=== PATIENT | female | born 1955 | race Caucasian/White ===

== ENCOUNTER → 2018-05-15 09:19 | Outpatient (CLI) | payer OTHER, SELFPAY | PROVIDERS: Family Provider Internal Medicine; PCP Internal Medicine; Visit Provider Internal Medicine | DX: Z12.31 Encounter for screening mammogram for malignant neoplasm of breast (principal); Z78.0 Asymptomatic menopausal state | CPT/HCPCS: 77063; 77067; 77080 ==

== ENCOUNTER → 2019-05-29 07:06 | Outpatient (CLI) | payer OTHER, SELFPAY ==
--- NOTE | 2019-05-29 07:13 | BI_ITS ---
MAMMOGRAPHY - BILATERAL SCREENING REASON FOR EXAM: Female, 63 years old. Routine annual screening examination. PERTINENT HISTORY: Non-contributory. History of bilateral stereotactic breast biopsies and left breast aspiration. TECHNIQUE: Digital bilateral breast pushpa (3D mammographic acquisition) in the CC and MLO projections. 2-D mediolateral oblique (MLO) and craniocaudad (CC) views of both breasts were obtained. CAD: Full Field Digital Mammography with Computer Added Detection was performed. COMPARISON: Comparison is made with prior study dated May 15, 2018 and March 06, 2017. FINDINGS: Breast Composition: The breasts are heterogeneously dense, which may obscure small masses. There are no dominant masses or suspicious calcifications. Interstitial markers once again seen in the upper slightly lateral portion of the left breast as well as in the deep slightly superior medial portion of the right breast. Stable benign appearing bilateral axillary lymph nodes. No other significant abnormalities are identified. There has been no significant change since the prior study. BI/SCREEN MAMM (CAD) W/PUSHPA BILAT IMPRESSION: Stable bilateral screening mammogram. Yearly follow-up mammogram recommended. (A) ASSESSMENT CATEGORY: BIRADS Category 2: Benign. A letter regarding these results will be sent to the patient by the facility within 30 days. Approximately 10% of breast cancers are not detected by mammography. A normal mammogram should not delay biopsy of a clinically suspicious abnormality. [id number] Electronically Signed: Pedro Luis Thacker, at 8:52 EDT , Service support ,
== END ==
PROVIDERS: Family Provider Internal Medicine; PCP Internal Medicine; Referring Provider Internal Medicine; Visit Provider Internal Medicine
DX: Z12.31 Encounter for screening mammogram for malignant neoplasm of breast (principal)
CPT/HCPCS: 77063; 77067

== ENCOUNTER → 2020-09-07 07:41 | Outpatient (CLI) | payer MEDICARE, OTHER, SELFPAY ==
[2020-09-07 08:09] VITALS: BP 125/50; PULSE 76; RESP 16; TEMP 35.8; O2SAT 100; BMI 22.4
[2020-09-07 08:41] VITALS: BP 122/44; PULSE 72; RESP 16; TEMP 36.2; O2SAT 98
[2020-09-07 09:40] VITALS: BP 106/51; PULSE 75; RESP 16; TEMP 35.9; O2SAT 98
[2020-09-07 10:20] VITALS: BP 114/38; PULSE 72; RESP 16; TEMP 36.3
[2020-09-07 10:56] VITALS: BP 122/44; PULSE 78; RESP 16; TEMP 36.4; O2SAT 98
[2020-09-07 12:02] VITALS: BP 127/53; PULSE 79; RESP 16; TEMP 36.6; O2SAT 97
== END ==
PROVIDERS: PCP Internal Medicine; Referring Provider Ophthalmology; Visit Provider Ophthalmology
DX: D68.2 Hereditary deficiency of other clotting factors (principal)
CPT/HCPCS: 36430; 86900; 86901; 86965; J7040; P9012; A4216

== ENCOUNTER → 2021-04-26 13:16 | Outpatient (CLI) | payer MEDICARE, OTHER, SELFPAY ==
[2020-09-07 08:09] VITALS: BMI 22.4
--- NOTE | 2021-04-26 13:18 | BI_ITS ---
MAMMOGRAPHY - BILATERAL SCREENING REASON FOR EXAM: Female, 65 years old. Routine annual screening examination. PERTINENT HISTORY: Screening TECHNIQUE: Digital bilateral breast pushpa (3D mammographic acquisition) in the CC and MLO projections. 2-D mediolateral oblique (MLO) and craniocaudad (CC) views of both breasts were obtained. CAD: Full Field Digital Mammography with Computer Added Detection was performed. COMPARISON: Previous mammogram obtained on 06/13/2019 FINDINGS: Breast Composition: Dense There are no dominant masses or suspicious calcifications. This patient has some dense internal breast structure in the superior medial aspect of the posterior right breast and the 2 o''clock position which have been previously biopsied and has actually decreased in size and radiodensity compared with the previous study obtained on 05/29/2019 and probably represents residual focal atelectasis change. BI/SCRN MAMM (CAD)W/PUSHPA BILAT IMPRESSION: Stable bilateral screening mammogram. Yearly follow-up mammogram recommended. (A) ASSESSMENT CATEGORY: BIRADS Category 1: Negative. A letter regarding these results will be sent to the patient by the facility within 30 days. Approximately 10% of breast cancers are not detected by mammography. A normal mammogram should not delay biopsy of a clinically suspicious abnormality. [id number] Electronically Signed: Sheng Fall DO at 15:04 EDT Tel , Service support ,
--- NOTE | 2021-04-26 13:24 | BD_ITS ---
STUDY: DUAL ENERGY X-RAY ABSORPTIOMETRY / DXA REASON FOR EXAM: Female, 65 years old. Z780. Patient is postmenopausal. TECHNIQUE: Bone Mineral Density (BMD) measurements of lumbar spine and bilateral hips were obtained. COMPARISON: Comparison is made with prior study dated 05/15/2018. FINDINGS: Lumbar Spine (L1-L4): g/cm2 (0.777) / T-score (-2.5) / Z-score (-0.6) Findings are suggestive of osteopenia with a high fracture risk. Left Femur Total: g/cm2 (0.777) / T-score (-1.4) / Z-score (-0.1) Left Femoral Neck: g/cm2 (0.657) / T-score (-1.7) / Z-score (-0.2) Right Femur Total: g/cm2 (0.752) / T-score (-1.6) / Z-score (-0.3) Right Femoral Neck: g/cm2 (0.654) / T-score (-1.8) / Z-score (-0.2) The T-Scores on the most recent prior examination were: Lumbar Spine (L1-L4): There has been worsening of bone density since the previous examination. Left Femur Total: which represents a worsening of 6.5%. Right Femur Total: which represents a worsening of 1.9%. BD/Dexa Bone Density Study IMPRESSION: The patient is considered osteopenic as outlined below according to World Robert Organization (WHO) criteria with a high fracture risk. There has been worsening of bone density since the previous examination. Reference Information: The T-score is the number of standard deviations above or below the standard which is normal for young adults at their peak bone mineral density. The World Health Organization (WHO) interprets the T-scores as follows: Above -1 Normal bone density Between -1 and -2.5 Osteopenia Equal to / or below -2.5 Osteoporosis As a practical clinical guideline, osteopenia may be graded as follows: Mild -1 through -1.5 Moderate -1.6 through -2.0 Severe -2.1 through -2.4 The Z-score is the number of standard deviations above or below age-matched controls. A Z-score of less than -1.5 would be considered abnormal. References: 1. NIH Osteoporosis and Related Bone Diseases www osteo.org 2. International Society for Clinical Densitometry www iscd.org 3. National Osteoporosis Foundation www nof.org Electronically Signed: Pedro Luis Thacker MD at 10:09 EDT , Service support ,
--- NOTE | 2021-04-26 13:58 | CT_ITS ---
STUDY: LOW DOSE CT LUNG CANCER SCREENING REASON FOR EXAM: Female, 65 years old. CURRENT SMOKER RADIATION DOSAGE (If Supplied By Facility): CTDIvol = ( 1.55 ) mGy, DLP = ( 50.56 ) mGycm TECHNIQUE: No contrast was administered. Low dose technique was utilized (average mAS-38 and kVp 120). 1.25 mm axial source images with a slice interval of 1.25-mm were reconstructed in lung windows. 2.5 mm axial source images with a slice interval of 2.5-mm were reconstructed in lung windows. 5.0 mm axial source images with a slice interval of 5.0-mm were reconstructed in soft tissue windows. Nodule measured using lung windows on PACS and/or independent workstation with automated measurement of minimum and maximum diameter. Nodule measurement reported as average diameter rounded to the nearest whole number. Growth is defined as an increase ins size of greater than 1.5 mm. COMPARISON: Previous chest from 12/07/2012 NODULES: Nodule #: None Total lung nodules (excluding granulomas): 0 Emphysema: None Endobronchial lesion: The Aorta: Normal Coronary arteries: Heart: Normal Mediastinal nodes: Normal Other chest and abdominal findings: The pectus excavatum deformity is identified. CT/Low Dose CT Lung Screening IMPRESSION: Pectus excavatum deformity is identified, otherwise the pulmonary parenchyma is normal IMPORTANT NOTES FOR USE: ACR Lung-RADS Version 1.1 Assessment Categories Release Date: 2018 Category: Coded 0-4 bases on nodule(s) with highest degree of suspicion. Negative screen is defined as categories 1 and 2; a positive screen is defined as categories 3 and 4. Category 3 and 4A nodules that are unchanged on interval CT should be coded as category 2, and individuals returned to screening in 12 months. Category 4X: Category 3 or 4 nodules with additional imaging findings that increase the suspicion of lung cancer, such as spiculation, GGN that doubles in size in 1 year, enlarged lymph notes, etc. Category Modifiers: S (significant finding unrelated to lung cancer) Electronically Signed: Sheng Fall DO at 13:08 EDT Tel , Service support ,
== END ==
PROVIDERS: PCP Internal Medicine; Referring Provider Internal Medicine; Visit Provider Internal Medicine
DX: Z12.31 Encounter for screening mammogram for malignant neoplasm of breast (principal); Z78.0 Asymptomatic menopausal state; Z87.891 Personal history of nicotine dependence
CPT/HCPCS: 71271; 77063; 77067; 77080

== ENCOUNTER → 2022-05-17 | Outpatient (CLI) | payer MEDICARE, OTHER, SELFPAY ==
--- NOTE | 2022-05-17 07:56 | MRI_ITS ---
STUDY: MRI LUMBAR SPINE WITHOUT CONTRAST REASON FOR EXAM: Female, 66 years old. Back pain and right leg pain. TECHNIQUE: Standardized fat and water weighted pulse sequences were obtained in the sagittal and axial planes. COMPARISON: Lumbar spine radiographs 04/28/2022. FINDINGS: T10-T11: (Sagittal only). Normal endplates. Mild disc space height narrowing. No ventral extradural defect. Normal central canal and bilateral intervertebral neural foramina. T11-T12 and T12-L1: (Sagittal only). Normal endplates. Normal disc height, hydration and morphology. No ventral extradural defects. Normal central canal and bilateral intervertebral neural foramina. Normal lumbar lordosis. There is no substantial scoliosis. Normal conus medullaris that terminates at the lower T12 vertebral body level. L1-2: Normal endplates. Normal disc height, hydration and morphology. Normal bilateral facet joints. Normal central canal and bilateral lateral recesses. Normal bilateral intervertebral neural foramina. L2-3: Normal endplates. Normal disc height, hydration and morphology. Normal bilateral facet joints. Normal central canal and bilateral lateral recesses. Normal bilateral intervertebral neural foramina. L3-4: Normal endplates. Normal disc height, hydration and morphology. Normal bilateral facet joints. Normal central canal and bilateral lateral recesses. Normal bilateral intervertebral neural foramina. L4-5: Normal endplates. Mild disc space height narrowing. Minimal ventral extradural defect due to small posterior bulging annulus. Normal facet joint. Mild central canal stenosis with an AP canal diameter of 8 mm. Normal bilateral lateral recesses. Normal bilateral intervertebral neural foramina. L5-S1: Normal endplates. Normal disc height. Mild degenerative anterolisthesis of L5 on S1. Moderately pronounced bilateral degenerative facet arthropathy. Degenerative cysts in the right S1 superior articular facet. Degenerative cyst overlying the anterior surface of the left S1 superior articular facet. Pronounced central canal stenosis with a transverse canal diameter of 4.7 mm. Normal bilateral lateral recesses. Mild stenosis of the left intervertebral neural foramen. Normal right intervertebral neural foramen. Normal visualized sacral ala. Normal visualized paraspinous soft tissue structures. MRI/Spine Lumbar (Routine) IMPRESSION: 1. No MRI evidence of lumbar extruded disc fragment. 2. Mild degenerative anterolisthesis of L5 on S1, moderately pronounced bilateral L5-S1 degenerative facet arthropathy, pronounced central canal stenosis with a transverse canal diameter of 4.7 mm and mild stenosis of the left intervertebral neural foramen. Electronically Signed: David Saldaña MD at 9:09 EDT ,
== END | disposition home or self-care (01) ==
PROVIDERS: PCP Internal Medicine; Referring Provider Orthopaedic Surgery; Visit Provider Orthopaedic Surgery
DX: M51.26 Other intervertebral disc displacement, lumbar region (principal)
CPT/HCPCS: 72148

== ENCOUNTER → 2022-07-28 | Outpatient (CLI) | payer MEDICARE, OTHER, SELFPAY ==
--- NOTE | 2022-07-28 07:42 | BI_ITS ---
MAMMOGRAPHY - BILATERAL SCREENING REASON FOR EXAM: Female, 67 years old. Routine annual screening examination. PERTINENT HISTORY: Non-contributory. Remote bilateral stereotactic breast biopsies. TECHNIQUE: Digital bilateral breast pushpa (3D mammographic acquisition) in the CC and MLO projections. 2-D mediolateral oblique (MLO) and craniocaudad (CC) views of both breasts were obtained. CAD: Full Field Digital Mammography with Computer Added Detection was performed. COMPARISON: Comparison is made with prior study dated 04/26/2021 and 05/29/2019. FINDINGS: Breast Composition: The breasts are heterogeneously dense, which may obscure small masses. There are no dominant masses or suspicious calcifications. A tissue clip marker is once again seen in the deep slightly upper medial aspect of the right breast. A tissue marker is also seen in the deep upper central portion of the left breast. Stable bilateral fat-containing axillary lymph nodes. No other significant abnormalities are identified. There has been no significant change since the prior study. BI/SCRN MAMM (CAD)W/PUSHPA BILAT IMPRESSION: Stable bilateral screening mammogram. Yearly follow-up mammogram recommended. (A) ASSESSMENT CATEGORY: BIRADS Category 2: Benign. A letter regarding these results will be sent to the patient by the facility within 30 days. Approximately 10% of breast cancers are not detected by mammography. A normal mammogram should not delay biopsy of a clinically suspicious abnormality. [id number] Electronically Signed: Pedro Luis Thacker MD at 9:00 EDT ,
--- NOTE | 2022-07-28 07:59 | CT_ITS ---
STUDY: LOW DOSE CT LUNG CANCER SCREENING REASON FOR EXAM: Female, 67 years old. Former smoker. 35 pack-year history. RADIATION DOSAGE (If Supplied By Facility): CTDIvol = ( 2.01 ) mGy, DLP = ( 65.70 ) mGycm TECHNIQUE: No contrast was administered. Low dose technique was utilized (average mAS-38 and kVp 120). 1.25 mm axial source images with a slice interval of 1.25-mm were reconstructed in lung windows. 2.5 mm axial source images with a slice interval of 2.5-mm were reconstructed in lung windows. 5.0 mm axial source images with a slice interval of 5.0-mm were reconstructed in soft tissue windows. COMPARISON: April 26, 2021. NODULES: Total lung nodules (excluding granulomas): 0 Emphysema: None Endobronchial lesion: No Aorta: Mild atherosclerotic changes without aneurysm. CORONARY ARTERIES: Minimal coronary artery calcification Heart: Normal Pulmonary artery: Normal Mediastinal nodes: None Other chest and abdominal findings: Mild degenerative changes of the thoracic spine. Minimal pectus excavatum deformity of the chest wall. CT/Low Dose CT Lung Screening IMPRESSION: Lung-RADS category 1 - Continue annual screening with LDCT in 12 months. IMPORTANT NOTES FOR USE: ACR Lung-RADS Version 1.1 Assessment Categories Release Date: 2018 Category: Coded 0-4 bases on nodule(s) with highest degree of suspicion. Negative screen is defined as categories 1 and 2; a positive screen is defined as categories 3 and 4. Category 3 and 4A nodules that are unchanged on interval CT should be coded as category 2, and individuals returned to screening in 12 months. Category 4X: Category 3 or 4 nodules with additional imaging findings that increase the suspicion of lung cancer, such as spiculation, GGN that doubles in size in 1 year, enlarged lymph notes, etc. Category Modifiers: S (significant finding unrelated to lung cancer) Electronically Signed: Abraham Mckenzie DO at 17:42 EDT Reading Location ID and State: [address] [place] [address] Tel [phone], Service support ,
== END | disposition home or self-care (01) ==
LOC: OPBI 07:41
PROVIDERS: PCP Internal Medicine; Referring Provider Internal Medicine; Visit Provider Internal Medicine
DX: Z12.31 Encounter for screening mammogram for malignant neoplasm of breast (principal); Z12.2 Encounter for screening for malignant neoplasm of respiratory organs; Z87.891 Personal history of nicotine dependence
CPT/HCPCS: 71271; 77063; 77067

== ENCOUNTER → 2022-08-14 | Outpatient (CLI) | payer MEDICARE, OTHER, SELFPAY ==
--- NOTE | 2022-08-14 14:31 | CT_ITS ---
INDICATION: Left lower quadrant abdominal pain. Pelvic pain. Postmenopausal female. Diverticulosis. EXAMINATION: CT ABDOMEN AND PELVIS WITH CONTRAST - CT Abdomen And Pelvis W/ Contrast Injection TECHNIQUE: Helically acquired images were obtained of the abdomen and pelvis following IV contrast. A radiation dose optimization technique was used for this scan. IV Contrast dosage and agent: 100 mL of Isovue-300 . Oral contrast: November COMPARISON: None. FINDINGS: LOWER CHEST: Lung bases are clear. No cardiomegaly or pericardial effusion. LIVER: Multiple subcentimeters cysts throughout and otherwise normal liver. No evidence of enhancing focal mass. GALLBLADDER AND BILIARY TREE: No calcified gallstones. No gallbladder distension or wall edema. No intra- or extrahepatic biliary ductal dilation. PANCREAS: No focal cystic or solid mass. SPLEEN: Normal size without focal cystic or solid mass. ADRENAL GLANDS: No nodules. KIDNEYS AND URETERS: Small cyst in the upper pole. Otherwise normal right kidney. Normal left kidney. Normal visualized ureters. PERITONEUM: No ascites or free air. No other fluid collection. BOWEL: Normal stomach. Normal small bowel. There is sigmoid diverticulosis without acute inflammatory change. The colon is otherwise grossly normal. Normal appendix. LYMPH NODES: No enlarged mesenteric or retroperitoneal lymph nodes. VESSELS: Atherosclerotic changes of the abdominal aorta and iliac arteries without dissection or aneurysm. Normal IVC. URINARY BLADDER: Unremarkable. REPRODUCTIVE ORGANS: There is a partially calcified fibroid off the left 5-7 otherwise normal uterus. There is evidence of tubal ligation. No adnexal mass. ABDOMINAL WALL: No discrete abdominal or pelvic wall hernia. BONES: Minimal anterolisthesis of L5 on S1 without pars defects. The lumbar spine is otherwise grossly normal. No lytic or blastic lesions CT/Abdomen/Pelvis WITH Contrast IMPRESSION: 1. Diverticulosis without acute inflammatory change. 2. Uterine fibroid. 3. Nonspecific subcentimeter hepatic cysts. 4. Right renal cyst. 5. No other evidence of renal, ureteral or urinary bladder abnormality. Electronically Signed: Abraham Mckenzie DO at 17:37 EST Reading Location ID and State: [facility] / [place] Tel [phone], Service support ,
[2022-08-14 15:11] LABS: Absolute Lymphocyte Count 2.18 X10^3/uL (0.83-4.51); Absolute Neutrophil Count 4.5 X10^3/uL (2.0-7.7); Basophil# 0.05 X10^3/uL; Basophil% 0.7 % (0-1); Eosinophil# 0.04 X10^3/uL; Eosinophils% 0.5 % (0-5); Erythrocyte Sedimentation Rate 10 mm/hr (0-30); Hematocrit 41.1 % (37-47); Hemoglobin 13.6 g/dL (12.0-15.0); Lymphocyte # 2.18 X10^3/ul (0.83-4.51); Lymphocyte % 29.4 % (19-41); Mean Corp Hgb Conc 33.1 g/dL (32-36); Mean Corpuscular Hgb 32.5 pg (27.0-32.0); Mean Corpuscular Volume 98.1 fL (81-99); Mean Platelet Vol. 9.7 fl (6.2-12.0); Monocyte# 0.62 X10^3/uL; Monocyte% 8.4 % (0-10); NRBC Flagged by Analyzer 0 % (0-5); Neutrophil % 60.7 % (47-70); Platelet Count 323 K/mm3 (150-450); RBC Distribution Width CV 11.9 % (11.6-14.6); RBC Distribution Width SD 43.5 fl (35.1-43.9); Red Blood Count 4.19 M/mm3 (4.2-5.4); White Blood Count 7.4 K/mm3 (4.4-11.0)
[2022-08-14 15:35] LABS: ALB/GLOB Ratio 1.3 RATIO (0.9-2.4); AST(SGOT) 28 U/L (15-37); Alanine Aminotransfer ALT/SGPT 29 U/L (13-56); Albumin, Serum 4.4 g/dL (3.2-5.0); Alkaline Phosphatase 55 U/L (45-117); Anion Gap 4 (5-15); BUN 14 mg/dL (7-18); BUN/Creat Ratio 23.9 RATIO (10-20); CRP < 2.90 mg/L (0.0-3.0); Calcium,Total 9.4 mg/dL (8.5-10.1); Chloride 105 mmol/L (98-107); Creatinine, Serum 0.59 mg/dL (0.55-1.02); EST Glomerular Filtration Rate 109 mL/min (>60); Est Glom Filt Rate - Afr Amer 132 mL/min (>60); Globulin 3.4 g/dL (2.2-4.2); Glucose 94 mg/dL (74-106); Potassium 4.4 mmol/L (3.5-5.1); Protein, Total 7.8 g/dL (6.4-8.2); Sodium Level 140 mmol/L (136-145)
== END | disposition home or self-care (01) ==
PROVIDERS: PCP Internal Medicine; Visit Provider Internal Medicine
DX: R10.2 Pelvic and perineal pain (principal); R10.32 Left lower quadrant pain; Z78.0 Asymptomatic menopausal state
CPT/HCPCS: 36415; 74177; 80053; 85025; 85652; 86140; Q9967; A4216

== ENCOUNTER 2023-05-02 10:00 | Outpatient (RCR) | payer MEDICARE, OTHER, SELFPAY ==
--- NOTE | 2023-04-02 14:18 | HP.PTEVAL_ITS ---
Patient's Visit Information Visit Information Visit Information: ISRAEL BAILEY is a 67 year old F referred to Physical Therapy by Dr. Melo Huntley MD with a diagnosis of Back pain. Date of Evaluation: 04/02/23 Physical Therapist: VENANCIO Harrell Visit Plan Frequency: 2x /Week Duration: 4 Weeks Plan: 2X/ week for 4 weeks for R piriformis stretching, neutral spine core stability with HEP HEP: seated knee to opposite shoulder piriformis stretch Subjective Subjective: She saw Dr Zaragoza and referred to Dr Huntley...facet issues L5-S1 and DDD. She has been getting injections and abalation. She has pain on the R side LB and pain all the way down the leg. It is pretty much always down the leg. The abalation improved it but if she sits, stands too long or walks too far she has pain. She only take IBprof. She does not take the oxycodone that was given to her and she does not like it. She has had PT before on her neck but not for her LB. She does not feel that she has leg weakness. She can sleep ok and uses a heating pad and ice and take IBprof PM before bed. She has N&T. She only got a couple of days out of the injections. Pain LBP: Pain Intensity (Out of 10): 3 Pain Intensity Range: 8 R leg pain: Pain Intensity (Out of 10): 4 Pain Intensity Range: 8 Objective Objective: Gait: Normal gait pattern Trunk AROM: flexion 75%, ext 50%, SB B 75%, Rot B 75% Pt is able to walk on heels and toes LE MMT: R hip flex 15.6 and L 15.3 R knee ext 21.4 and L 23.6 R knee flex 14.9 and L 13.8 R hip abd 12.2 and L hip abd 13.9 Patellar DTR's SLUMP test +R for right buttock pain and -L SLR - B Piriformis length... tighter on the R with some increase pain with stretching and nothing on the L. Balance/Special Test Scores Oswestry Low Back Score: 15 Goals Goal 1:: I HEP Goal Time Frame: 4-6 Weeks Goal 2:: Decrease back and leg pain by 50% Goal Time Frame: 4-6 Weeks Goal 3:: No pain with stretching the R piriformis Goal Time Frame: 4-6 Weeks Rehabilitation Potential Rehabilitation Potential: Good Anticipated Interventions Patient/Client Instruction: Educate patient on: Condition and Plan of Care For the Purpose of:: To decrease pain, To increase ROM, To improve nutrient delivery to tissue, To improve muscle performance and motor function, To improve ability to perform ADL's, To increase tolerance to activity/condition/position, To improve performance and independence with ADL's, To decrease level of supervision to perform tasks, To improve ability of physical actions for home/community/work/leisure, To improve health of tissue and To increase flexibility/ROM Therapeutic Exercise to Include: Strength training, Postural training, Flexibilty training, Neuromotor development, Active ROM and Dynamic Lumbar Stabilization For the Purpose of:: To decrease pain, To increase ROM, To improve nutrient delivery to tissue, To improve muscle performance and motor function, To improve ability to perform ADL's, To increase tolerance to activity/condition/position, To decrease level of supervision to perform tasks, To improve ability of physical actions for home/community/work/leisure, To improve health of tissue, To decrease soft tissue restriction and To increase flexibility/ROM Text: Thank you for the opportunity to evaluate your patient. For Medicare and Medicare HMO plans, please review the plan of care and approve it. It will need to be FAXED BACK to us at [phone] for Medicare purposes. For Medicare only, by signing this I certify the plan of care. Please let me know if there are questions or concerns regarding this plan of care. Physician Signature: Date:
--- NOTE | 2023-05-02 10:28 | HP.PTDCSUM ---
Discharge Summary D/C summary: It has been my pleasure to treat ISRAEL BAILEY referred by Dr. Melo Huntley MD, with the diagnosis of Back pain for a total of 8 visit(s). Discharge Date: 05/02/23 Please see the following information for a summary of their discharge status. Subjective Subjective: Pt reports that if standing a lot by the end of the day she can tell she is done. The stretches do help but it does come back. The pain is not constant anymore. Mornings and afternoons are ok but by evening she feels it. Pain LBP: Pain Intensity (Out of 10): 0 R leg pain: Pain Intensity (Out of 10): 0 Overall Improvement % Improvement: 80 Objective Objective/Function: Instructed pt in supine with green strap IT band stretch 30 sec X 3 and given as HEP Supine manual Piriformis stretch on the R 30 sec X 3.... great muscle length Bug X 10... pt was not keeping her back flat on the table so instead of 90/90 bug we went ahead and did bent knees to the table. Goals Goal 1:: I HEP Goal Progress: Goal Met Goal 2:: Decrease back and leg pain by 50% Goal Progress: Goal Met Goal 3:: No pain with stretching the R piriformis Goal Progress: Goal Met Plan Plan: DC PT to HEP D/C Information Discharge Comments: DC PT to HEP d/c sentence: If there are questions or concerns regarding this patient's physical therapy, please feel free to call me at [phone]. Thank you for the referral of this patient. Sincerely, Lita Gardner, MPT Balance/Gait/Functional tests Balance/Special Test Scores Oswestry Low Back Score: 4
== END 2023-05-02 19:00 | disposition home or self-care (01) ==
LOC: PT 10:00
PROVIDERS: PCP Internal Medicine; Referring Provider Anesthesiology Pain Medicine; Visit Provider Anesthesiology Pain Medicine
DX: M54.9 Dorsalgia, unspecified (principal)
CPT/HCPCS: 97110; 97161

== ENCOUNTER → 2023-07-30 | Outpatient (CLI) | payer MEDICARE, OTHER, SELFPAY ==
--- NOTE | 2023-07-30 07:56 | CT_ITS ---
HISTORY: former smoker. CURRENT NON-SMOKER X 2.5 YRS, SMOKER X 30 YRS .5 PPD. TECHNIQUE: Helically acquired images were obtained of the chest without contrast. A radiation dose optimization technique was used for this scan. 509 images. COMPARISON: 07/28/2022, 04/26/2021. FINDINGS: LARGE AIRWAYS: Patent. LUNGS: Chronic mild biapical scarring with small blebs. Chronic linear left lower lobe scarring. No new suspicious nodule or acute alveolar consolidation. PLEURA: No pneumothorax or significant pleural effusion. HEART/PERICARDIUM: Heart within normal limits in size with coronary artery calcification. No pericardial effusion. VESSELS: Thoracic aorta nondilated. Mild atherosclerosis. MEDIASTINUM/JOSE: No pathologically enlarged adenopathy. UPPER ABDOMEN: Stable small cyst in the hepatic dome. BONES: Degenerative change and mild pectus excavatum. CT/Low Dose CT Lung Screening IMPRESSION: No significant interval change. Lung-RADS category 1: Continue annual screening with low dose CT. Electronically Signed: Maritza Wong MD at 9:01 EST ,
== END | disposition home or self-care (01) ==
LOC: CT 07:56
PROVIDERS: PCP Internal Medicine; Visit Provider Internal Medicine
DX: Z87.891 Personal history of nicotine dependence (principal)
CPT/HCPCS: 71271

== ENCOUNTER → 2023-08-09 | Outpatient (CLI) | payer MEDICARE, OTHER, SELFPAY ==
--- NOTE | 2023-08-09 12:56 | BI_ITS ---
MAMMOGRAPHY - BILATERAL SCREENING REASON FOR EXAM: Female, 68 years old. Routine annual screening examination. PERTINENT HISTORY: History of prior bilateral stereotactic breast biopsies. TECHNIQUE: Digital bilateral breast pushpa (3D mammographic acquisition) in the CC and MLO projections. 2-D mediolateral oblique (MLO) and craniocaudad (CC) views of both breasts were obtained. CAD: Full Field Digital Mammography with Computer Added Detection was performed. COMPARISON: Comparison is made with prior examination dated July 28, 2022 and April 26, 2021. FINDINGS: Breast Composition: The breasts are heterogeneously dense, which may obscure small masses. There are no dominant masses or suspicious calcifications. A tissue clip marker is once again seen in the deep slightly upper medial aspect of the right breast. A tissue clip marker is also seen in the deep upper central portion of the left breast. Stable bilateral fat-containing axillary lymph nodes. No other significant abnormalities are identified. There has been no significant change since the prior study. BI/SCRN MAMM (CAD)W/PUSHPA BILAT IMPRESSION: Stable bilateral screening mammogram. Yearly follow-up mammogram recommended. (A) ASSESSMENT CATEGORY: BIRADS Category 2: Benign. A letter regarding these results will be sent to the patient by the facility within 30 days. Approximately 10% of breast cancers are not detected by mammography. A normal mammogram should not delay biopsy of a clinically suspicious abnormality. [id number] Electronically Signed: Pedro Luis Thacker MD at 14:12 EST ,
--- NOTE | 2023-08-09 12:59 | BD_ITS ---
STUDY: DUAL ENERGY X-RAY ABSORPTIOMETRY / DXA REASON FOR EXAM: Female, 68 years old. M810 TECHNIQUE: Bone Mineral Density (BMD) measurements of lumbar spine and bilateral hips were obtained. COMPARISON: Comparison is made with prior examination April 26, 2021. FINDINGS: Lumbar Spine (L1-L4): g/cm2 (0.750) / T-score (-2.8) / Z-score (-0.8) Findings are suggestive of osteoporosis with a high fracture risk. Left Femur Total: g/cm2 (0.787) / T-score (-1.3) / Z-score (0.1) Left Femoral Neck: g/cm2 (0.627) / T-score (-2.0) / Z-score (-0.3) Right Femur Total: g/cm2 (0.752) / T-score (-1.6) / Z-score (-0.2) Right Femoral Neck: g/cm2 (0.609) / T-score (-2.2) / Z-score (-0.5) The T-Scores on the most recent prior examination were: Lumbar Spine (L1-L4): There has been worsening of bone density since the previous examination. Left Femur Total: which represents an improvement of 1.3%. Right Femur Total: which represents no significant change. . BD/Dexa Bone Density Study IMPRESSION: The patient is considered osteoporotic as outlined below according to World Robert Organization (WHO) criteria with a high fracture risk. There has been worsening of bone density since the previous examination. Reference Information: The T-score is the number of standard deviations above or below the standard which is normal for young adults at their peak bone mineral density. The World Health Organization (WHO) interprets the T-scores as follows: Above -1 Normal bone density Between -1 and -2.5 Osteopenia Equal to / or below -2.5 Osteoporosis As a practical clinical guideline, osteopenia may be graded as follows: Mild -1 through -1.5 Moderate -1.6 through -2.0 Severe -2.1 through -2.4 The Z-score is the number of standard deviations above or below age-matched controls. A Z-score of less than -1.5 would be considered abnormal. References: 1. NIH Osteoporosis and Related Bone Diseases www osteo.org 2. International Society for Clinical Densitometry www iscd.org 3. National Osteoporosis Foundation www nof.org Electronically Signed: Pedro Luis Thacker MD at 15:22 EST ,
== END | disposition home or self-care (01) ==
LOC: OPBD 12:55
PROVIDERS: PCP Internal Medicine; Referring Provider Internal Medicine; Visit Provider Internal Medicine
DX: Z12.31 Encounter for screening mammogram for malignant neoplasm of breast (principal); M81.0 Age-related osteoporosis without current pathological fracture; M85.80 Other specified disorders of bone density and structure, unspecified site
CPT/HCPCS: 77063; 77067; 77080

== ENCOUNTER 2024-01-29 09:00 | Outpatient (RCR) | payer MEDICARE, OTHER, SELFPAY ==
--- NOTE | 2023-12-24 13:00 | HP.PTEVAL ---
Patient's Visit Information Visit Information Visit Information: ISRAEL BAILEY is a 68 year old F referred to Physical Therapy by ASHVIN LAWSON with a diagnosis of CERVICAL RADICULOPATHY RIGHT. Date of Evaluation: 12/24/23 Physical Therapist: Higinio Fontana, PT, Cert MDT, OCS Visit Plan Frequency: 2x /Week Duration: 6WEEKS Plan: PRECAUTIONS: OSTEOPOROSIS PT INTERVENTIONS CERVICAL ROM/POSTURAL EX'S ,US /CP/MHP , MANUAL THERAPY (MANUAL TRACTION) Subjective Subjective: This 68 y/o female presents to physical therapy with cervical radiculopathy right side. Patient has cervical pain since [address] recommended PT. DR recommended surgery but patient declined symptoms worsen . Patient want to try PT too see of it will help before needing surgery. Patient had x-rays showed DDD/spurs and stenosis. Patient was not given no medication.Aggravating factors reading ,driving ,turning neck ,and lifting. Alleviating factors ice/heat rest. No H/O trauma . Patient pain affects sleeping. c/o dizziness but none today ,based on turning quickly.Denies tinnitus/nausea. Patient has paresthesia/tingling right arms and chest pain. Patient has received PT in past. Patient pain affects QOL and function. Patient goals to see if PT helps before surgery. SOCIAL: VOCATION: retired Pain Bilateral Neck: Pain Intensity (Out of 10): 6 Pain Intensity Range: 10 Comment: right Objective Objective: POSTURE: mild/mod thoracic kyphosis ,rounded shoulders head forward PALAPTION: tender UT/levator /occiput right> left NEURO: denies paresthesia/tingling , reflexes C5-6-7 1/3 AROM: BUE WFL MMT: BUE 4/5 except shoulders CERVICAL ROM: flexion WFL ,extension WFL ,lateral flexion/rotation min loss Special Tests C/S Radiculapathy - Left Upper limb tension test: Negative C/S Radiculapathy - Right Upper limb tension test: Negative C/S Radiculapathy - Left Spurlings: Negative C/S Radiculapathy - Right Spurlings: Positive C/S Radiculapathy - Left Cervical distraction: Negative C/S Radiculapathy - Right Cervical distraction: Negative C/S Radiculapathy - Left Relief test: Negative C/S Radiculapathy - Right Relief test: Negative C/S Radiculapathy - Valsalva: Negative Balance/Special Test Scores Oswestry Neck Score: 27 Goals Goal 1:: I with HEP for cervical spine Goal Time Frame: 4-6 Weeks Goal 2:: Patient demonstrates 50% improvement with less pain and and improved function Goal Time Frame: 4-6 Weeks Goal 3:: Patient to improve cervical ROM for function of recovery for ADLS and driving Goal Time Frame: 4-6 Weeks Goal 4:: Patient to improve neck oswestry score by 5 points to improve QOL and function Goal Time Frame: 4-6 Weeks Rehabilitation Potential Physical Therapy Diagnosis: This patient has cervical radiculopathy right with possible lateral stenosis with pain with positioning ,motion testing affects ADLS and housework task thus benefit from skilled PT Rehabilitation Potential: Good Anticipated Interventions Patient/Client Instruction: Educate patient on: Condition and Plan of Care For the Purpose of:: To decrease pain, To increase ROM, To improve muscle performance and motor function, To improve ability to perform ADL's, To increase tolerance to activity/condition/position, To improve ability of physical actions for home/community/work/leisure, To improve health of tissue, To decrease soft tissue restriction, To increase flexibility/ROM and To improve tolerance to ADL's Therapeutic Exercise to Include: Strength training, Postural training and Flexibilty training For the Purpose of:: To decrease pain, To increase ROM, To improve ability of physical actions for home/community/work/leisure, To improve health of tissue, To decrease soft tissue restriction and To increase flexibility/ROM Manual Therapy Techniques to Include: Soft tissue mobilization Comment: MANUAL TRACTION For the Purpose of:: To decrease pain, To increase ROM, To improve nutrient delivery to tissue, To increase oxygenation perfusion, To improve health of tissue and To decrease soft tissue restriction Text: Thank you for the opportunity to evaluate your patient. For Medicare and Medicare HMO plans, please review the plan of care and approve it. It will need to be FAXED BACK to us at [phone] for Medicare purposes. For Medicare only, by signing this I certify the plan of care. Please let me know if there are questions or concerns regarding this plan of care. Physician Signature: Date:
--- NOTE | 2024-01-29 09:30 | HP.PTDCSUM ---
Discharge Summary D/C summary: It has been my pleasure to treat ISRAEL BAILEY referred by ASHVIN LAWSON, with the diagnosis of CERVICAL RADICULOPATHY RIGHT for a total of 10 visit(s). Discharge Date: 01/29/24 Please see the following information for a summary of their discharge status. 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 Pain Bilateral Neck: Pain Intensity (Out of 10): 2 Overall Improvement % Improvement: 50 Objective Objective/Function: POSTURE: mild thoracic kyphosis ,rounded shoulders head forward PALAPTION: tender UT/levator /occiput right> left NEURO: denies paresthesia/tingling AROM: BUE WFL MMT: BUE 4/5 except shoulders CERVICAL ROM: flexion WFL ,extension WFL ,lateral flexion/rotation min loss Goals Goal 1:: I with HEP for cervical spine Goal Progress: Goal Met Goal 2:: Patient demonstrates 50% improvement with less pain and and improved function Goal Progress: Goal Met Goal 3:: Patient to improve cervical ROM for function of recovery for ADLS and driving Goal Progress: Goal Met Goal 4:: Patient to improve neck oswestry score by 5 points to improve QOL and function Goal Progress: Goal Met Plan Plan: D/C TO HEP D/C Information Discharge Comments: HEP d/c sentence: If there are questions or concerns regarding this patient's physical therapy, please feel free to call me at [phone]. Thank you for the referral of this patient. Sincerely, Higinio Fontana, PT, Cert MDT, OCS Balance/Gait/Functional tests Balance/Special Test Scores Oswestry Neck Score: 5 Improvement % Improvement: 50
== END 2024-01-29 09:37 | disposition home or self-care (01) ==
LOC: PT 09:00
PROVIDERS: PCP Internal Medicine
DX: M54.12 Radiculopathy, cervical region (principal)
CPT/HCPCS: 97110; 97140; 97162; 97530

== ENCOUNTER 2024-02-12 10:10 | Outpatient (CLI) | payer MEDICARE, OTHER, SELFPAY ==
[2024-02-12 10:36] VITALS: BP 133/46; PULSE 68; RESP 16; TEMP 36.4; O2SAT 99; BMI 24.2
[2024-02-12] MEDS: DENOSUMAB 60 MG/ML SC (10:41)
== END 2024-02-12 23:59 | disposition home or self-care (01) ==
LOC: MEDOUTP 10:10
PROVIDERS: PCP Internal Medicine; Referring Provider Internal Medicine; Visit Provider Internal Medicine
DX: M81.0 Age-related osteoporosis without current pathological fracture (principal)
CPT/HCPCS: 96372; J0897

== ENCOUNTER → 2024-05-19 | Outpatient (CLI) | payer MEDICARE, OTHER, SELFPAY ==
--- NOTE | 2024-05-19 06:44 | MRI_ITS ---
EXAM: MR LUMBAR SPINE WITHOUT INTRAVENOUS CONTRAST CLINICAL INDICATION: LUMBAR RADICULOPATHY TECHNIQUE: Multiplanar and multisequence MR images of the lumbar spine without intravenous contrast. COMPARISON: No relevant prior studies available. FINDINGS: VERTEBRAE: See below. SPINAL CORD: Normal. Normal position and signal intensity of the conus medullaris. SOFT TISSUES: Normal. DISCS/SPINAL CANAL/NEURAL FORAMINA: L1-L2: Normal. Normal disc height and morphology. Normal spinal canal and lateral recesses. Normal neuroforamina. L2-L3: Normal. Normal disc height and morphology. Normal spinal canal and lateral recesses. Normal neuroforamina. L3-L4: Normal. Normal disc height and morphology. Normal spinal canal and lateral recesses. Normal neuroforamina. L4-L5: Mild disc space narrowing. Broad-based disc protrusion noted. There appears to be a 5 mm extruded fragment extending inferiorly along the left posterior lateral region causing stenosis of the adjacent lateral recess. Minimal narrowing of the thecal sac secondary to the disc protrusion and ligamentous hypertrophy. No significant narrowing of the neuroforamina. L5-S1: There is mild anterior listhesis which appears related to facet joint narrowing. Mild narrowing of the thecal sac and moderate narrowing of the neural foramina related to ligamentous and facet hypertrophy, respectively. MRI/Spine Lumbar (Routine) IMPRESSION: No evidence of acute fracture or subluxation. Left L4-5 inferior disc extrusion narrowing the lateral recess. As above. Electronically Signed: Arnol Johnson MD at 15:48 EDT ,
== END | disposition home or self-care (01) ==
LOC: MRI 06:25
PROVIDERS: PCP Internal Medicine; Referring Provider Anesthesiology Pain Medicine; Visit Provider Anesthesiology Pain Medicine
DX: M54.16 Radiculopathy, lumbar region (principal)
CPT/HCPCS: 72148

== ENCOUNTER 2024-08-15 10:14 | Outpatient (CLI) | payer MEDICARE, OTHER, SELFPAY ==
[2024-08-15 10:36] VITALS: BP 115/48; PULSE 79; RESP 16; TEMP 35.6
[2024-08-15] MEDS: DENOSUMAB 60 MG/ML SC (10:38)
== END 2024-08-15 23:59 | disposition home or self-care (01) ==
PROVIDERS: PCP Internal Medicine; Referring Provider Internal Medicine; Visit Provider Internal Medicine
DX: M81.0 Age-related osteoporosis without current pathological fracture (principal)
CPT/HCPCS: 96372; J0897

== ENCOUNTER → 2024-08-17 | Outpatient (CLI) | payer MEDICARE, OTHER, SELFPAY | END | disposition home or self-care (01) | LOC: LAB 09:01 | PROVIDERS: PCP Internal Medicine; Visit Provider Ophthalmology | DX: Z00.00 Encounter for general adult medical examination without abnormal findings (principal) | CPT/HCPCS: 36415; 86900; 86901 ==

== ENCOUNTER 2024-08-18 07:39 | Outpatient (CLI) | payer MEDICARE, OTHER, SELFPAY ==
[2024-08-18 07:52] VITALS: BP 140/59; PULSE 71; RESP 16; TEMP 35.8; O2SAT 99; BMI 23.4
[2024-08-18 08:29] VITALS: BP 133/49; PULSE 75; RESP 16; TEMP 36.1; O2SAT 99
[2024-08-18 09:04] VITALS: BP 120/49; PULSE 72; RESP 16; TEMP 36
[2024-08-18 09:29] VITALS: BP 133/50; PULSE 71; RESP 16; TEMP 36; O2SAT 99
== END 2024-08-18 23:59 | disposition home or self-care (01) ==
LOC: MEDOUTP 07:40
PROVIDERS: PCP Internal Medicine; Referring Provider Ophthalmology; Visit Provider Ophthalmology
DX: D68.2 Hereditary deficiency of other clotting factors (principal)
CPT/HCPCS: 36415; 36430; 86900; 86901; 86965; P9012; A4216

== ENCOUNTER → 2024-09-10 | Outpatient (CLI) | payer MEDICARE, OTHER, SELFPAY ==
--- NOTE | 2024-09-10 13:46 | BI_ITS ---
MAMMOGRAPHY - BILATERAL SCREENING REASON FOR EXAM: Female, 69 years old. Routine annual screening examination. PERTINENT HISTORY: Non-contributory. History of bilateral stereotactic breast biopsies. TECHNIQUE: Digital bilateral breast pushpa (3D mammographic acquisition) in the CC and MLO projections. 2-D mediolateral oblique (MLO) and craniocaudad (CC) views of both breasts were obtained. CAD: Full Field Digital Mammography with Computer Added Detection was performed. COMPARISON: Comparison is made with prior study dated August 09, 2023 and July 28, 2022. FINDINGS: Breast Composition: The breasts are heterogeneously dense, which may obscure small masses. There are no dominant masses or suspicious calcifications. A tissue clip marker is once again seen in the deep slightly upper medial aspect of the right breast. A tissue clip marker is also seen in the deep upper central portion of the left breast. Stable bilateral fat-containing axillary lymph nodes. No other significant abnormalities are identified. There has been no significant change since the prior study. BI/SCRN MAMM (CAD)W/PUSHPA BILAT IMPRESSION: Stable bilateral screening mammogram. Yearly follow-up mammogram recommended. (A) ASSESSMENT CATEGORY: BIRADS Category 2: Benign. A letter regarding these results will be sent to the patient by the facility within 30 days. Approximately 10% of breast cancers are not detected by mammography. A normal mammogram should not delay biopsy of a clinically suspicious abnormality. [id number] Electronically Signed: Pedro Luis Thacker MD at 14:44 EST ,
--- NOTE | 2024-09-10 14:04 | CT_ITS ---
STUDY: LOW DOSE CT LUNG CANCER SCREENING REASON FOR EXAM: Female, 69 years old. Former smoker, stopped smoking in distant past. Patient smokes half a pack per day for 40 years. RADIATION DOSAGE (If Supplied By Facility): CTDIvol = ( 2.01 ) mGy, DLP = ( 66.95 ) mGycm TECHNIQUE: No contrast was administered. Low dose technique was utilized (average mAS-38 and kVp 120). 1.25 mm axial source images with a slice interval of 1.25-mm were reconstructed in lung windows. 2.5 mm axial source images with a slice interval of 2.5-mm were reconstructed in lung windows. 5.0 mm axial source images with a slice interval of 5.0-mm were reconstructed in soft tissue windows. COMPARISON: Comparison is made with prior study July 30, 2023. NODULES: No suspicious nodules are seen. Emphysema: Stable scarring at both lung apices worse on the right lung apex. Stable minimal linear scarring at the left lung base. Endobronchial lesion: None Aorta: Atherosclerotic plaque formation of the aortic arch. CORONARY ARTERIES: Coronary artery calcification is seen. Heart: Unremarkable Pulmonary artery: Unremarkable Mediastinal nodes: Unremarkable Other chest and abdominal findings: CT/Low Dose CT Lung Screening IMPRESSION: Lung-RADS category 2 - Continue annual screening with LDCT in 12 months. IMPORTANT NOTES FOR USE: ACR Lung-RADS Version 1.1 Assessment Categories Release Date: 2018 Category: Coded 0-4 bases on nodule(s) with highest degree of suspicion. Negative screen is defined as categories 1 and 2; a positive screen is defined as categories 3 and 4. Category 3 and 4A nodules that are unchanged on interval CT should be coded as category 2, and individuals returned to screening in 12 months. Category 4X: Category 3 or 4 nodules with additional imaging findings that increase the suspicion of lung cancer, such as spiculation, GGN that doubles in size in 1 year, enlarged lymph notes, etc. Category Modifiers: S (significant finding unrelated to lung cancer) Electronically Signed: Pedro Luis Thacker MD at 12:55 EST ,
== END | disposition home or self-care (01) ==
PROVIDERS: PCP Internal Medicine; Referring Provider Internal Medicine; Visit Provider Internal Medicine
DX: Z12.31 Encounter for screening mammogram for malignant neoplasm of breast (principal); Z12.2 Encounter for screening for malignant neoplasm of respiratory organs; Z87.891 Personal history of nicotine dependence
CPT/HCPCS: 71271; 77063; 77067

== ENCOUNTER → 2024-11-13 | Outpatient (CLI) | payer MEDICARE, OTHER, SELFPAY ==
--- NOTE | 2024-11-13 07:54 | ECHOD_ITS ---
Reason For Study Reason For Study: AV DISORDERS Procedure This was a 2D Doppler, Color Flow transthoracic echocardiogram. Exam performed in department. Left Ventricle Normal size and thickness. Left ventricular systolic function is normal. The left ventricular ejection fraction is 65 %. No evidence for diastolic dysfunction. Right Ventricle Normal right ventricle. Atria The left and right atria are normal. Mitral Valve Trivial mitral valve insufficiency. Tricuspid Valve Trivial tricuspid valve insufficiency. Normal pulmonary artery pressure. Aortic Valve Trisinus/trileaflet aortic valve. Mild focal aortic valve calcification. Pulmonic Valve The pulmonic valve is not well visualized. Trivial pulmonic valve insufficiency. Great Vessels Normal sized aortic root. Pericardium/Pleural No pericardial effusion. MMode/2D Measurements & Calculations LVIDd: 4.8 cm IVSd: 0.91 cm LVOT diam: 2.0 cm LVIDs: 3.7 cm LVPWd: 0.87 cm LVOT area: 3.0 cm2 RVDd: 2.4 cm FS: 21.8 % Ao root diam: 2.6 cm LAV(MOD-bp): 25.2 ml LVAd ap4: 20.0 cm2 LAV(MOD-bp) Indexed: 16.6 ml/m2 LVLd ap4: 7.5 cm LAV(MOD-sp2): 21.1 ml EDV(MOD-sp4): 45.7 ml LAV(MOD-sp4): 24.8 ml EDV(sp4-el): 45.6 ml LVAs ap4: 9.8 cm2 LVLs ap4: 5.9 cm ESV(MOD-sp4): 15.2 ml ESV(sp4-el): 13.9 ml EF(MOD-sp4): 66.8 % EF(sp4-el): 69.6 % SV(MOD-sp4): 30.5 ml SV(sp4-el): 31.7 ml LA A4 area: 12.2 cm2 SI(MOD-sp4): 20.2 ml/m2 LA dimension(2D): 3.1 cm RA A4 area: 6.8 cm2 Time Measurements MV dec time: 0.18 sec Doppler Measurements & Calculations MV E max felice: 80.7 cm/sec Lat Peak E' Felice: 9.1 cm/sec Med Peak E' Felice: 7.9 cm/sec MV A max felice: 76.8 cm/sec E/E' lat: 8.8 E/E' med: 10.3 MV E/A: 1.1 MV V2 max: 92.3 cm/sec Ao V2 max: 115.2 cm/sec MV max P.4 mmHg MV dec slope: 454.2 cm/sec2 Ao max P.3 mmHg MV V2 mean: 66.1 cm/sec Ao V2 mean: 80.8 cm/sec MV mean P.9 mmHg Ao mean P.0 mmHg MV V2 VTI: 31.9 cm Ao V2 VTI: 28.8 cm AV (velocity ratio): 0.92 MVA(VTI): 2.5 cm2 CARLA(I,D): 2.8 cm2 CARLA(V,D): 2.9 cm2 LV V1 max: 109.1 cm/sec SV(LVOT): 80.6 ml PA V2 max: 86.0 cm/sec LV V1 max P.8 mmHg PA V2 mean: 62.1 cm/sec LV V1 mean P.8 mmHg LV V1 mean: 79.1 cm/sec LV V1 VTI: 26.5 cm PI end-d felice: 85.1 cm/sec TR max felice: 199.3 cm/sec TR max P.9 mmHg ECHO/Echo Complete Interpretation Summary The left ventricular ejection fraction is 65 %. No evidence for diastolic dysfunction. Mild focal aortic valve calcification. Ordering Physician: Iman Gilliam Referring Physician: Iman Gilliam Performed By: Milka Batres RCS
== END | disposition home or self-care (01) ==
LOC: CVS 07:53
PROVIDERS: PCP Internal Medicine; Referring Provider Internal Medicine; Visit Provider Internal Medicine
DX: I35.8 Other nonrheumatic aortic valve disorders (principal)
CPT/HCPCS: 93306

== ENCOUNTER 2025-02-12 09:13 | Outpatient (CLI) | payer MEDICARE, OTHER, SELFPAY ==
[2025-02-12 09:20] VITALS: BP 145/73; PULSE 74; RESP 16; TEMP 36; O2SAT 98; BMI 23.8
[2025-02-12] MEDS: DENOSUMAB 60 MG/ML SC (09:32)
== END 2025-02-12 23:59 | disposition home or self-care (01) ==
LOC: MEDOUTP 09:13
PROVIDERS: PCP Internal Medicine; Referring Provider Internal Medicine; Visit Provider Internal Medicine
DX: M81.0 Age-related osteoporosis without current pathological fracture (principal)
CPT/HCPCS: 96372; J0897

== ENCOUNTER 2025-08-05 14:05 | Emergency (ER) | payer MEDICARE, OTHER, SELFPAY ==
[2025-08-05 14:05] VITALS: BP 114/58; PULSE 99; RESP 18; TEMP 37.2; O2SAT 99
[2025-08-05 14:48] LABS: Hematocrit 36.6 % (37-47); Hemoglobin 12.8 g/dL (12.0-15.0); Immature Granulocytes Count 0.080 X10^3/uL (0.0-0.0); Mean Corp Hgb Conc 35.0 g/dL (32-36); Mean Corpuscular Volume 92.2 fL (81-99); Mean Platelet Vol. 9.1 fl (6.2-12.0); NRBC Flagged by Analyzer 0 % (0-5); Platelet Count 313 K/mm3 (150-450); RBC Distribution Width CV 12.2 % (11.6-14.6); RBC Distribution Width SD 41.4 fl (35.1-43.9); Red Blood Count 3.97 M/mm3 (4.2-5.4); White Blood Count 13.8 K/mm3 (4.4-11.0)
[2025-08-05 15:04] LABS: AST(SGOT) 24 U/L (<=31); Alanine Aminotransfer ALT/SGPT 14 U/L (<=34); Albumin, Serum 4.1 g/dL (3.4-4.8); Alkaline Phosphatase 61 U/L (35-104); Anion Gap 11 (5-15); BUN 13 mg/dL (4-19); BUN/Creat Ratio 22.2 RATIO (10-20); Calcium,Total 8.7 mg/dL (7.6-11.0); Carbon Dioxide 25.2 mmol/L (21.0-32.0); Chloride 99 mmol/L (98-108); Globulin 3.0 g/dL (2.2-4.2); Glucose 107 mg/dL (70-99); Potassium 3.5 mmol/L (3.3-5.1)
[2025-08-05 15:16] LABS: Lipase 390 U/L (13-75)
--- NOTE | 2025-08-05 15:33 | CT_ITS ---
PROCEDURE: CT ABDOMEN/PELVIS W IV CONT ONLY 08/05/2025 REASON FOR EXAM: LEFT-SIDED ABDOMINAL PAIN TECHNIQUE: Procedure Code: [id number] Modality: CT Procedure: ABDOMEN/PELVIS W IV CONT ONLY Coronal and Sagittal reconstruction series were provided. CONTRAST: Isovue 300 VOLUME: 75 mL One or more dose reduction techniques were used (e.g., Automated exposure control, adjustment of the mA and/or kV according to patient size, use of iterative reconstruction technique. RADIATION DOSE SUMMARY: DLP: 443.42 mGycm COMPARISON: 08/14/2022 FINDINGS: Lung bases: Clear. Liver: No significant abnormality. Several scattered small circumscribed hypodense lesions most likely reflecting hepatic cysts, no significant interval change. Gallbladder: Unremarkable. Spleen: Unremarkable. Pancreas: Unremarkable. Adrenals: Unremarkable. Kidneys: Unremarkable. No hydronephrosis. Bladder: Unremarkable. Reproductive Organs: Small degenerative calcified fibroid at the uterine fundus. Unremarkable adnexae, with bilateral tubal ligation clips noted. Bowel: No evidence of obstruction. Normal appendix. Moderate distal colonic diverticulosis, with acute diverticulitis/segmental colitis of the descending colon in the left upper abdomen. No drainable fluid collection/abscess or free air to suggest perforation. Lymph nodes: No suspicious lymph node enlargement. Vasculature: Normal caliber abdominal aorta. Mild-moderate atherosclerotic disease. Peritoneum / Retroperitoneum: No ascites or free air. Bones: Minimal multilevel degenerative changes of the spine, with mild degenerative grade 1 anterolisthesis of L5 on S1. CT/Abdomen/Pelvis W IV Cont ONLY IMPRESSION: Acute uncomplicated diverticulitis/segmental colitis of the descending colon. Reading Location: [id number]
--- NOTE | 2025-08-05 15:33 | ED.VIS.GI ---
HPI HPI - GI History of Present Illness Chief Complaint: Abd Pain Narrative Narrative: 70-year-old female past medical history of hypertension presents with left-sided flank pain and elevated temperature. She states her symptoms began on last , approximately 6 days ago, when she started having diarrhea. That resolved. [facility] yesterday and diagnosed with gastroenteritis. She states she developed a fever. They did a urinalysis yesterday which was negative for infection. She states that she was nauseated but not vomiting. She noticed elevated temperature, now her pain is more on the left flank area. No exacerbating or alleviating factors. She felt like her pain was getting slightly worse, and moved to her left flank and back. She denies any gross hematuria, no exacerbating or alleviating factors. 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 Home Medications Medication Instructions Recorded Last Taken Type L.acidoph,paracasei,B.animalis 10 1 ea PO DAILY 02/23/15 07/13/16 History billion cell capsule amlodipine 5 mg tablet 5 mg PO DAILY 02/23/15 07/13/16 History calcium 600 mg (as 1 ea PO TID 02/23/15 07/13/16 History carbonate)-vitamin D3 20 mcg (800 unit) tablet cholecalciferol (vitamin D3) 25 2,000 mg PO DAILY 07/13/16 07/13/16 History mcg (1,000 unit) tablet (Vitamin D3) multivitamin (Daily Multi-Vitamin 1 tab PO DAILY 02/12/24 Unknown History tablet) denosumab 60 mg/mL subcutaneous 60 mg subcut [id number] 11/06/24 Unknown History syringe (Prolia) omeprazole 20 mg capsule,delayed 20 mg PO QDAY 11/06/24 Unknown History release atorvastatin 20 mg tablet 20 mg PO QDAY 08/04/25 Unknown History citalopram 10 mg tablet 10 mg PO QDAY 08/04/25 Unknown History ondansetron HCl 4 mg tablet 4 mg PO Q8H PRN nausea and 08/04/25 Unknown Rx vomiting #7 tabs ciprofloxacin HCl 500 mg tablet 500 mg PO BID #20 TABLETS 08/05/25 Unknown Rx metronidazole 500 mg tablet 500 mg PO TID #30 tabs 08/05/25 Unknown Rx Allergy/AdvReac Type Severity Reaction Status Date / Time No Known Allergies Allergy Verified 08/05/25 14:06 Family History Father Cancer Other Hypertension Surgical History Hx of tonsillectomy History of cataract surgery Social History Smoking Status: Former smoker Tobacco: How many years used: 30 ROS ROS ED ROS Narrative Review of systems positive for elevated temperature, nausea but no vomiting. Diarrhea-resolved. Positive abdominal pain, radiating to left flank. No dysuria or hematuria, no exacerbating or alleviating factors. EXAM Physical Exam Narrative Exam Narrative: Afebrile. Vital signs noted. Nontoxic-appearing. Cardiovascular examination reveals regular rate and rhythm. Lungs are clear to auscultation bilaterally. The abdomen is soft and nontender without guarding or rebound. No CVA tenderness to percussion bilaterally. Positive bowel sounds. Neurological examination nonfocal, nonlateralizing. Const Vital Signs: 08/05/25 14:05 08/05/25 16:04 08/05/25 18:00 Temperature 99 F 98.9 F Temperature Source Oral Oral Pulse Rate 99 88 81 Respiratory Rate 18 14 16 Blood Pressure 114/58 L 124/42 H 121/45 H Blood Pressure Mean 76 69 70 Pulse Ox 99 92 92 Oxygen Delivery Method Room Air Room Air Room Air MDM MDM MDM Narrative Medical decision making narrative: Differential diagnosis includes but not limited to gastroenteritis versus diverticulitis versus pyelonephritis versus ureterolithiasis. Laboratory work obtained per protocol. I reviewed her laboratory work and she has an elevated white count of 13.8 with hemoglobin 12.8, hematocrit 36.6, platelet count normal at 313. CMP is remarkable for creatinine low at 0.57 with BUN of 13, sodium normal 136, potassium 3.5, LFTs are grossly unremarkable. Lipase is slightly elevated at 390. I do feel that CT imaging is indicated. I do feel that she requires IV contrast as her elevated lipase and her left flank/back pain may be more from a pancreatitis that is more retroperitoneal. She declines any parenteral analgesics currently. I reviewed the CT of the abdomen and pelvis with IV contrast. There is no stranding around the pancreas. There is left-sided descending colon diverticulitis. Upon repeat examination, she is still declining any IV parenteral analgesics. She is not febrile here. I discussed with her the possibility of observation for IV antibiotics but she feels well and would like to be discharged home and try outpatient treatment for her descending colon diverticulitis. She was told the risk of perforation and abscess development and acknowledges an understanding. She will follow-up with her primary care provider in the next 2 days. Return instructions to the emergency department were reviewed. She was given her first doses of Cipro and Flagyl as she states she is taking Cipro floxacillin previously. Disposition is discharged home in stable condition. History & Record Review Discussion w/independent historian: Patient Additional record(s) reviewed:: Prior ED visit (Last ED visit 2015) and Prior labs Lab Data Attestation: I reviewed the patient's lab results. Labs: Laboratory Results - last 24 hr 08/05/25 08/05/25 14:26 16:25 WBC 13.8 H RBC 3.97 L Hgb 12.8 Hct 36.6 L MCV 92.2 MCH 32.2 H MCHC 35.0 RDW Std Deviation 41.4 RDW Coeff of Naomie 12.2 Plt Count 313 MPV 9.1 Immature Gran % (Auto) 0.600 Neut % (Auto) 80.6 H Lymph % (Auto) 9.1 L [place] % (Auto) 8.6 Eos % (Auto) 0.7 Baso % (Auto) 0.4 Absolute Neuts (auto) 11.1 H Absolute Lymphs (auto) 1.25 Nucleated RBC % 0 Sodium 136 Potassium 3.5 Chloride 99 Carbon Dioxide 25.2 Anion Gap 11 BUN 13 Creatinine 0.57 L Est GFR (MDRD) Non-Af 98 BUN/Creatinine Ratio 22.2 H Glucose 107 H Calcium 8.7 Total Bilirubin 0.76 AST 24 ALT 14 Alkaline Phosphatase 61 Total Protein 7.0 Albumin 4.1 Globulin 3.0 Albumin/Globulin Ratio 1.4 Lipase 390 H Urine Color Yellow Urine Clarity Clear Urine pH 6.5 Ur Specific [place] 1.010 Urine Protein 30 H Urine Glucose (UA) Normal Urine Ketones 150 A* Urine Occult Blood 10 H Urine Nitrite Negative Urine Bilirubin Negative Urine Urobilinogen Normal Ur Leukocyte Esterase Negative Urine RBC 0-5 SEEN Urine WBC 0 SEEN Ur Squamous Epith Cells 0-5 SEEN Urine Bacteria 0 SEEN Urine Mucus 0 SEEN Radiography Diagnostic Testing: Clinical Impression(s) from Imaging Studies Abdomen/Pelvis CT 08/05/25 15:33 IMPRESSION: Acute uncomplicated diverticulitis/segmental colitis of the descending colon. Reading Location: [facility] Discharge Plan Triage Chief Complaint: Abd Pain ED Provider: David Shaikh Dx/Rx/DC Orders Clinical Impression: Diverticulitis, Elevated lipase, Left flank pain Instructions: ED Diverticulitis Prescriptions: New ciprofloxacin HCl 500 mg tablet 500 mg PO BID Qty: 20 0RF metronidazole 500 mg tablet 500 mg PO TID Qty: 30 0RF No Action Prolia 60 mg/mL syringe 60 mg subcut [id number] omeprazole 20 mg capsule,delayed release(DR/EC) 20 mg PO QDAY citalopram 10 mg tablet 10 mg PO QDAY atorvastatin 20 mg tablet 20 mg PO QDAY ondansetron HCl 4 mg tablet 4 mg PO Q8H PRN (Reason: nausea and vomiting) Qty: 7 0RF amlodipine 5 MG tablet 5 mg PO DAILY calcium carbonate-vitamin D3 1 EACH tablet 1 ea PO TID L.acidoph,paracasei,B.animalis 1 EACH capsule 1 ea PO DAILY cholecalciferol (vitamin D3) [Vitamin D3] 1,000 UNIT tablet 2,000 mg PO DAILY multivitamin [Daily Multi-Vitamin] Tablet 1 tab PO DAILY Primary Care Provider: Iman Gilliam Referrals: Iman Gilliam DO [Primary Care Provider, Internal Medicine] - 2 Days FriendMani DO [Med Staff - Active Staff, Gastroenterology] - 1-2 Days if not improving Activity Restrictions/Additional Instructions: Antibiotics as directed. Return to the emergency department with sustained high fever, increased pain, new or worsening symptoms. Follow-up with your primary care provider or gastroenterology in the next 2 days. Tylenol or ibuprofen as needed for pain. Print Language: Swiss Disposition Disposition: Home, Self Care D/C Safety Score for UGIB Assessment Tom-Blatchford Bleeding Score (GBS): Stratifies upper GI bleeding patients who are "low-risk" and candidates for outpatient management. Hemoglobin, BUN, Recent Vital Signs: Hgb 12.8 g/dL (12.0-15.0) 08/05/25 14:26 BUN 13 mg/dL (4-19) 08/05/25 14:26 Pulse Rate 81 Blood Pressure 121/45 Score Interpretation: Score of 0: A GBS of 0 is a “Low Risk” GI bleed, and is highly sensitive (99.6% in a 2007 retrospective study) for predicting which patients did not require any “medical intervention”: blood transfusion, endoscopy, or surgery. This was confirmed in a [address] [facility] study where patients with a score of 0 were actually discharged and had no GI bleeding mortality at 6 month followup Score above 0: A GBS greater than zero suggests a “High Risk” GI bleed that is likely to require “medical intervention”: transfusion, endoscopy, or surgery. A higher GBS also correlated with a higher likelihood of needing intervention Scores >/= 6 are associated with >50% risk of needing intervention D/C Safety Score for LGIB Assessment Assessment Tool: Readmission and adverse event risk in patients with acute lower GI bleeding. Hemoglobin and Recent Vital Signs: Hgb 12.8 g/dL (12.0-15.0) 08/05/25 14:26 Pulse Rate 81 08/05/25 18:00 Blood Pressure 121/45 08/05/25 18:00 Score Interpretation: Probability Percentage of safe discharge (absence of rebleeding, blood transfusion, therapeutic intervention, 28 day readmission, or ) Score of 8 or below: Consider discharge, with appropriate precautions. Score of 9 or above: Discharge NOT recommended. Consider admission with further workup and resuscitation as necessary.
[2025-08-05 16:04] VITALS: BP 124/42; PULSE 88; RESP 14; TEMP 37.2; O2SAT 92
[2025-08-05 16:29] LABS: Mucous, Urine 0 SEEN /hpf (<or=2+)
[2025-08-05 16:46] LABS: Color, Urine Yellow (Yellow); Glucose, Dipstick Normal (Normal); Leukocyte Esterase-Dipstick Negative /ul (Negative); Nitrite-Dipstick Negative (Negative); Occult Blood-Urine 10 /ul (Negative); Protein-Dipstick 30 mg/dl (Negative); Specific Gravity, Urine 1.010 (1.002-1.030); Urine Bilirubin Dipstick Negative (Negative)
[2025-08-05 16:57] LABS: Ketone-Dipstick 150 mg/dl (Negative)
[2025-08-05 16:58] LABS: Red Blood Cells-Urine 0-5 SEEN /hpf (0-5); Squamous Epithelial Cells - UA 0-5 SEEN /hpf (5-10)
[2025-08-05 18:00] VITALS: BP 121/45; PULSE 81; RESP 16; O2SAT 92
[2025-08-05 18:39] VITALS: BP 145/57; PULSE 76; RESP 14; TEMP 37.1; O2SAT 100
== END 2025-08-05 18:50 | disposition home or self-care (01) ==
PROVIDERS: Emergency Provider Emergency Medicine; PCP Internal Medicine; Visit Provider Emergency Medicine
DX: R10.A2 Flank pain, left side (principal); K57.32 Diverticulitis of large intestine without perforation or abscess without bleeding; Z87.891 Personal history of nicotine dependence; R74.8 Abnormal levels of other serum enzymes; I10 Essential (primary) hypertension
CPT/HCPCS: 74177; 80053; 81001; 83690; 85025; 99283; Q9967; A4216

== ENCOUNTER 2025-08-14 09:19 | Outpatient (CLI) | payer MEDICARE, OTHER, SELFPAY ==
[2025-08-14 09:35] VITALS: BP 132/55; PULSE 71; RESP 16; TEMP 37.2; O2SAT 99
[2025-08-14] MEDS: DENOSUMAB 60 MG/ML SC (09:39)
== END 2025-08-14 23:59 | disposition home or self-care (01) ==
PROVIDERS: PCP Internal Medicine; Referring Provider Internal Medicine; Visit Provider Internal Medicine
DX: M81.0 Age-related osteoporosis without current pathological fracture (principal)
CPT/HCPCS: 96372; J0897

== ENCOUNTER → 2025-09-22 | Outpatient (CLI) | payer MEDICARE, OTHER, SELFPAY ==
--- OUTSIDE RECORDS SUMMARY | 2025-09-22 07:28 | XMS RPT_ITS | CCD ---
Author Organization [facility] Care Team Providers Care Show Host Or Hostess Name Role Phone Iman Nazario Unavailable Trent Mcfadden Unavailable Romie Lora Unavailable Dex Valencia Unavailable Juan Bruner Unavailable Abhay Bowden Unavailable Luis Dupere Unavailable Vinicius Vidales Unavailable Unavailable Funmi Lezama Unavailable Unavailable Linda Hollins Unavailable Unavailable Unavailable Unavailable Lita Villanueva Unavailable Unavailable Funmi Lezama Unavailable Unavailable Melquiades Truong Unavailable Unavailable Michelle Dean Unavailable Unavailable Dex Valencia Unavailable Iman Nazario DO Unavailable Trent Mcfadden Unavailable Romie Lora Unavailable Dex Valencia MD Unavailable Dr. Juan Bruner Unavailable Abhay Bowden Unavailable Jose Dupreein Unavailable Vinicius Vidales Unavailable Unavailable Jonelle Vines LPN Unavailable Unavailable Funmi Lezama RN Unavailable Unavailable Melquiades Truong LPN Unavailable Unavailable Michelle Dean RN Unavailable Unavailable Linda Hollins Unavailable Unavailable Unavailable Unavailable Slaneli MOLINA Lita Unavailable Unavailable Billy EGAN, Rose Unavailable Unavailable Bonezzi MD, Maddy M Unavailable Unavailable Unavailable Iman Nazario DO Unavailable Shiv Zaragoza Unavailable Lesa Trent Unavailable Romie Lora Unavailable Erik KOHLI, eDx Marie Unavailable Dr. Juan Bruner Unavailable Abhay Bowden Unavailable Luis Dupree Unavailable Vinicius Vidales Unavailable Unavailable Cross STUDENT WORKER, Jonelle Unavailable Unavailable Slarb STUDENT WORKER, Lita Unavailable Unavailable Filipe SEWING MACHINE ASSEMBLER, Linda Unavailable [phone] Gravius RUBBER PRINTING MACHINE OPERATOR, Johana Unavailable Unavailable Manchak RUBBER PRINTING MACHINE OPERATOR, Rose Unavailable Unavailable Teja RN, Funmi Unavailable Unavailable Jermaine RN, Michelle Medina Unavailable Unavailable Unavailable Unavailable Dr. Iman Nazario Primary Care Provider [phone] Dr. Matthew Johnston Attending Provider [phone] Iman Nazario Referring Provider [phone] Dr. Shiv Zaragoza Attending Provider [phone] Alexi MOLINA, Melquiades Unavailable Unavailable Dr. Iman Nazario Primary Care Provider [phone] Dr. Matthew Johnston Attending Provider [phone] Iman Nazario Referring Provider [phone] Dr. Shiv Zaragoza Attending Provider [phone] Iman Nazario DO Unavailable [phone] Long RUBBER PRINTING MACHINE OPERATOR, Kayela Unavailable Unavailable Iman Nazario DO Attending Unavailable Iman Nazario DO Referring Unavailable Iman Nazario DO Consulting Unavailable Deisi Scott MA Unavailable Unavailable Dr. Iman Nazario Primary Care Provider [phone] Dr. Iman Nazario Referring Provider [phone] Dr. Shiv Zaragoza Attending Provider [phone] DARCI Dias LPN Unavailable Unavailable Mansi, Dr. Iman Primary Care Provider Dr. Matthew Johnston Attending Provider Mary KOHLI, Maddy Pete Primary Care Provider [phone] Unavailable Primary Care Provider Unavailabl e MANSI, IMAN K Referring Unavailable Mansi, Iman Primary Care Unavailable Mansi, Iman Attending Unavailable Mansi, Iman Referring Unavailable Miedel, Panola Attending Unavailable Miedel, Cory Referring Unavailable Mansi, Iman Primary Care Unavailable Matthew Johnston Attending Unavailable Mansi, Iman Primary Care Unavailable Mansi, Iman Primary Care Unavailable Gris Tovar Attending Unavailable Mansi, Iman Primary Care Unavailable Mansi, Imna Attending Unavailable Mansi, Iman Referring Unavailable Miedel, Panola Attending Unavailable Mansi, Iman Primary Care Unavailable Mansi, Iman Primary Care Unavailable Mansi, Iman Attending Unavailable Mansi, Iman Referring Unavailable Mansi, Iman Primary Care Unavailable Provider, Ed Physician Attending Unavailab le Mansi, Iman Primary Care Unavailable Howard Richards Attending Unavailable Mansi, Iman Referring Unavailable Mansi, Iman Primary Care Unavailable Devon Frausto Attending Unavailable Mansi, Iman Referring Unavailable Mansi, Iman Referring Unavailable Mansi, Iman Primary Care Unavailable Mansi, Iman Attending Unavailable Allergies Allergy Classification Reported Allergen(s) Allergy Type Date of Onset Reaction(s) Facility (1 source) Seasonal allergy Allergy to substance 3 Other: See Comments [facility] (1 source) ALLERGIES NOT ON FILE; Translations: [ALLERGIES NOT ON FILE] Propensity to adverse reactions (disorder) [facility] 2 Repository Medications Current Medications Medication Drug Class(es) Dates Sig (Normalized) Sig (Original) amLODIPine 5 mg oral tablet (20 sources) Dihydropyridine Calcium Channel Wesley Start: 02-23-2015 take 5 mg by mouth once daily Amlodipine Active 5 MG PO DAILY February 23, 2015 12:00am take 2 tablets by mouth once dylan ly amLODIPine 2.5 mg tablet Take 5 mg by mouth once daily. Active calcium carbonate 1500 mg / cholecalciferol 800 unt oral tablet (7 sources) Vitamin D Start: 02-23-2015 Calcium Carbon ate-Vitamin D3 Active 1 EACH PO THREE TIMES A DAY February 23, 2015 12:00am CALCIUM CARBONATE/VITAMIN D2 (CALCIUM + VITAMIN D ORAL) (1 source) CALCIUM CARBONAT E/VITAMIN D2 (CALCIUM + VITAMIN D ORAL) Take by mouth twice daily. Active cholecalciferol 0.025 mg oral tablet (7 sources) Vitamin D Start: 07-13-2016 Cholecalcifero l (Vitamin D3) (Vitamin D3) 1,000 UNIT tablet Active 2000 MG PO DAILY July 13, 2016 12:00am Miguel Paracmiguel,B. Lactis (7 sources) Start: 02-23-2015 L.Acidoph, Par acasei,B. Lactis Active 1 EACH PO DAILY February 22, 2015 11:00pm Start: 02-23-2015 Carol.Acidoph, Par acasei,B. Lactis Active 1 EACH PO DAILY February 23, 2015 12:00am Multivitamin capsule (1 source) take 1 capsule by mouth once daily Multivitamin capsule Take 1 capsule by mouth once daily. Active naproxen sodium 220 mg oral capsule (1 source) Nonsteroidal Anti-inflammatory Drug take 1 capsule by mouth every six hours as needed naproxen sodium (ALEVE) 220 mg cap Take 1 tablet by mouth four times daily as needed. Active Completed/Discontinued Medications Medication Drug Class(es) Dates Sig (Normalized) Sig (Original) acetaminophen 325 mg / HYDROcodone bitartrate 10 mg oral tablet (20 sources) Opioid Agonist Start: 01-07-2016 End: 09-19-2017 Start: 01-07-2016 End: 09-19-2017 [place] 10-325 MG Oral Tablet 1 (one) Tablet Tablet q 6-8 hours prn for 0 days Quantity: 60 {Tablet} Refills: 0 Ordered: 19-Sep-2017 Michelle Dean RN Start : 07-Jan-2016 End : 19-Sep-2017 Inactive Comments: sixty Comment on above: sixty acetaminophen 325 mg / oxyCODONE hydrochloride 5 mg oral tablet (7 sources) Opioid Agonist Start: 05-04-20 End: 05-14-20 22 take 1 tablet by mouth every six hours Oxycodone-Acetaminop hen Discontinued 1 TABLET PO EVERY 6 HOURS 40 May 04, 2022 May 14, 2022 12:03am alendronic acid 70 mg oral tablet (20 sources) Bisphosphonate Start: 07-08-20 13 End: 01-09-20 14 aspirin 81 mg delayed release oral tablet (20 sources) Platelet Aggregation Inhibitor, Nonsteroidal Anti-inflammatory Drug Start: 01-08-20 13 End: 12-29-19 17 Start: 01-07-2013 End: 12-28-2016 Aspirin EC 81 MG Oral Tablet Delayed Release [address] qd for 0 days Quantity: 30 {Tablet_DR} Refills: 0 Ordered: 28-Dec-2016 Funmi Lezama RN Start : 07-Jan-2013 End : 28-Dec-2016 Inactive atorvastatin 20 mg oral tabl et (20 sources) HMG-CoA Reductase Inhibitor Start: 10-11-2022 Start: 10-19-2021 Start: 07-21-2021 take 1 tablet by jered th once daily at bedtime Lipitor 20 MG Oral Tablet 1 Tablet qhs for 90 days Quantity: 90 {Tablet} Refills: 3 Ordered: 21-Jul-2021 Iman Nazario DO, DO, Kathleen Start : 21-Jul-2021 Active Start: 07-28-2020 take 1 tablet by jered th once daily at bedtime Lipitor 20 MG Oral Tablet 1 Tablet qhs for 90 days Quantity: 90 {Tablet} Refills: 3 Ordered: 28-Jul-2020 Iman Nazario DO, DO, Kathleen Start : 28-Jul-2020 Active Start: 08-06-2019 take 1 tablet by jered th once daily at bedtime Lipitor 20 MG Oral Tablet 1 Tablet qhs for 90 days Quantity: 90 {Tablet} Refills: 3 Ordered: 07-Aug-2019 Iman Nazario DO, DO, Kathleen Start : 07-Aug-2019 Active Start: 01-07-2019 take 1 tablet by jered th once daily at bedtime Lipitor 20 MG Oral Tablet 1 Tablet Tablet qhs for 0 days Quantity: 30 {Tablet} Refills: 6 Ordered: 07-Jan-2019 Iman Nazario DO, DO, Kathleen Start : 07-Jan-2019 Active Start: 06-12-2018 take 1 tablet by jered th once daily at bedtime Lipitor 20 MG Oral Tablet 1 Tablet Tablet qhs for 0 days Quantity: 30 {Tablet} Refills: 6 Ordered: 12-Jun-2018 Iman Nazario DO, DO, Kathleen Start : 12-Jun-2018 Active Start: 02-23-2015 take 20 mg by mouth at bedtime Atorvastatin Active 20 MG PO AT BEDTIME February 23, 2015 12:00am take 10 mg by mouth once daily a torvastatin 20 mg tablet Take 10 mg by mouth once daily. Active ZITHROMAX Z-TIM, 250MG (Oral Tablet) (20 sources) Macrolide Antimicrobial Start: 02-21-2011 End: 07-09-2012 Start: 02-21-2011 End: 07-09-2012 ZITHROMAX Z-TIM, 250MG (Oral Tablet) 1 Tablet take 2 on day #1 then 1 day for 0 days Quantity: 1 {Package(s)} Refills: 0 Ordered: 09-Jul-2012 Veronica Brenner LPN Start : 21-Feb-2011 End : 09-Jul-2012 Inactive benzonatate 100 mg oral capsule (20 sources) Non-narcotic Antitussive Start: 07-16-2008 End: 02-09-2011 24 hr buPROPion hydrochloride 150 mg extended release oral tablet (16 sources) Aminoketone Start: 04-01-2021 End: 05-01-2021 Comment on above: 1 tab daily for 1 we ek, then increase to 2 tabs daily Calcium with Vitamin D (18 sources) Calcium with Vitamin D 1 QD Active ciprofloxacin 500 mg oral tablet (20 sources) Quinolone Antimicrobial Start: 04-20-2014 End: 04-23-2014 citalopram 10 mg oral tablet (20 sources) Serotonin Reuptake Inhibitor Start: 10-11-2022 Start: 10-19-2021 Start: 07-21-2021 take 1 tablet by jered th once daily Citalopram Hydrobromide 10 MG Oral Tablet 1 (one) Tablet qd for 90 days Quantity: 90 {Tablet} Refills: 3 Ordered: 21-Jul-2021 Iman Nazario DO, DO, Kathleen Start : 21-Jul-2021 Active Start: 07-28-2020 take 1 tablet by jered th once daily Citalopram Hydrobromide 10 MG Oral Tablet 1 (one) Tablet qd for 90 days Quantity: 90 {Tablet} Refills: 3 Ordered: 28-Jul-2020 Iman Nazario DO, DO, Kathleen Start : 28-Jul-2020 Active Start: 08-06-2019 take 1 tablet by jered th once daily Citalopram Hydrobromide 10 MG Oral Tablet 1 (one) Tablet qd for 90 days Quantity: 90 {Tablet} Refills: 3 Ordered: 07-Aug-2019 Iman Nazario DO, DO, Kathleen Start : 07-Aug-2019 Active Start: 01-07-2019 take 1 tablet by jered th once daily Citalopram Hydrobromide 10 MG Oral Tablet 1 (one) Tablet qd for 0 days Quantity: 30 {Tablet} Refills: 6 Ordered: 07-Jan-2019 Iman Nazario DO, DO, Kathleen Start : 07-Jan-2019 Active Start: 09-09-2018 take 1 tablet by jered th once daily Citalopram Hydrobromide 10 MG Oral Tablet 1 (one) Tablet Tablet qd for 0 days Quantity: 30 {Tablet} Refills: 3 Ordered: 09-Sep-2018 Iman Nazario DO, DO, Kathleen Start : 09-Sep-2018 Active Start: 07-10-2014 End: 07-10-2014 ubidecarenone 200 mg oral ca psule (20 sources) Start: 08-12-2013 End: 12-28-2016 Start: 08-12-2013 End: 12-28-2016 take 6 capsules by mouth once daily COQ-10, 200MG (Oral Capsule) 1 Capsule Capsule qd with lipitor for 0 days Quantity: 30 {Capsule} Refills: 6 Ordered: 28-Dec-2016 Maddy Hernandez MD Start : 12-Aug-2013 End : 28-Dec-2016 Discontinued Comments: This order discontinued per [facility]. Comment on above: This order discontin ued per [facility]. cyclobenzaprine hydrochlorid e 5 mg oral tablet (20 sources) Muscle Relaxant Start: 08-09-2016 End: 09-19-2017 Start: 02-23-2015 End: 05-04-2022 Cyclobenzaprine Discontinued 10 MG PO NEEDED February 23, 2015 12:00am May 04, 2022 9:07am take 2 tablets by mo uth once daily at bedtime cyclobenzaprine (FLEXERIL) 5 mg tablet Take 10 mg by mouth daily at bedtime. Active Comment on above: sixty gabapentin 300 mg oral capsule (20 sources) Anti-epileptic Agent Start: 12-28-2015 End: 05-25-2016 Comment on above: thirty ibuprofen 200 mg oral tablet (20 sources) Nonsteroidal Anti-inflammatory Drug Start: 02-26-2015 End: 02-26-2015 take 2 tablets by mouth every four hours Start: 02-26-2015 End: 02-26-2015 take 2 tablets by mouth every four hours IBUPROFEN, 200MG (Oral Tablet) 2 (two) Tablet every 4 hours for 30 days Quantity: 30 {Tablet} Refills: 0 Ordered: 26-Feb-2015 Elviaberenice ANTELMOLissette Start : 26-Feb-2015 End : 26-Feb-2015 Discontinued loperamide hydrochloride 2 m g oral capsule (20 sources) Opioid Agonist Start: 04-20-2014 End: 02-19-2015 Comment on above: maximum 8mg per day or 4 pills meloxicam 7.5 mg oral tablet (3 sources) Nonsteroidal Anti-inflammatory Drug Start: 07-12-2023 MEDROL (TIM), 4MG (Oral Tabl et) (20 sources) Corticosteroid Start: 12-28-2015 End: 02-11-2016 Start: 12-28-2015 End: 02-11-2016 MEDROL (TIM), 4MG (Oral Tabl et) 1 (one) Tablet uad for 0 days Quantity: 1 {Package} Refills: 0 Ordered: 11-Feb-2016 DARCI Dias LPN Start : 28-Dec-2015 End : 11-Feb-2016 Inactive MVI (14 sources) MVI Active predniSONE 10 mg oral tablet (12 sources) Start: 04-28-2022 End: 07-07-2022 tiZANidine 4 mg oral tablet (3 sources) Central alpha-2 Adrenergic Agonist Start: 07-12-2023 varenicline 1 mg oral tablet (16 sources) Partial Cholinergic Nicotinic Agonist Start: 04-01-2021 End: 04-01-2021 (2 sources) Problems Active Problems Problem Classification Problem Date Documented Date Episodic/Chronic Abdominal pain (20 sources) Abdominal pain; Translations: [Stomach cramps] Onset: 5 Resolved: 5 01-08-2015 Episodic Comment on above: better Administrative/social admission (13 sources) Medical examinations/reports status; Translations: [Well woman exam with routine gynecological exam] 05-28-2018 Episodic Comment on above: pap 5-15, colonscopy 6-15. mammo 6-15 all planned. Anxiety disorders (20 sources) Anxiety; Translations: [Anxiety attack ] Resolved: 5 08-06-2015 Chronic Comment on above: doing well emotional ly off meds. manage without meds. Cardiac dysrhythmias (20 sources) Ventricular premature beats; Translations: [PVC (premature ventricular contraction)] 05-28-2018 Chronic Cardiac dysrhythmias (20 sources) Palpitations; Translations: [Tachycardia] Resolved: 8 05-28-2018 Episodic Comment on above: holter sinus tach di d correlate with the neck pain times -- Chronic obstructive pulmonary disease and bronchiectasis (20 sources) Bronchitis; Translations: [Bronchitis] Resolved: 4 06-29-2015 Episodic Chronic obstructive pulmonary disease and bronchiectasis (20 sources) Chronic obstructive pulmonary disease and bronchiectasis Coagulation and hemorrhagic disorders (20 sources) Dysfibrinogenemia; 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-2018 Chronic Coagulation and hemorrhagic disorders (4 sources) Blood coagulation disorder; Translations: [Hemorrhagic condition, unspecified] 12-21-2022 Episodic Conditions associated with dizziness or vertigo (20 sources) Dizziness; Translations: [Dizzy] Resolved: 5 01-08-2015 Episodic Conduction disorders (20 sources) Unspecified right bundle-branch block; Translations: [EKG: right bundle branch block] 05-28-2018 Chronic Diabetes mellitus without complication (20 sources) Hyperglycemia; Translations: [Hyperglycemia] 05-28-2018 Episodic Diseases of mouth; excluding dental (20 sources) Parotid sialolithiasis; Translations: [Parotid sialolithiasis] Resolved: 3 07-01-2021 Episodic Disorders of lipid metabolism (20 sources) Hyperlipidemia; Translations: [Hypercholesterolemia] Resolved: 4 05-28-2018 Chronic Comment on above: reveiwed with patien t recent tests 1-13 and good Essential hypertension (20 sources) Benign essential hypertension; Translations: [Benign essential hypertension] Onset: 5 05-28-2018 Chronic Fluid and electrolyte disorders (20 sources) Dehydration; Translations: [DEHYDRATION (Renamed from Body water dehydration)] Resolved: 5 01-08-2015 Episodic Headache; including migraine (20 sources) Headache; Translations: [Headache] Resolved: 3 09-03-2015 Episodic Comment on above: better with BP contr oll;initially presented as lightening like feeling Headache; including migraine (20 sources) Headache; including migraine Heart valve disorders (1 source) Other nonrheumatic aortic valve disorders; 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 Immunizations and screening for infectious disease (20 sources) Need for prophylactic vaccination and inoculation against influenza; Translations: [Viral screening status] Resolved: 6 04-01-2021 Episodic Malaise and fatigue (20 sources) Fatigue; Translations: [Fatigue] Resolved: 4 01-08-2014 Episodic Miscellaneous mental health disorders (20 sources) Psychophysiologic insomnia; Translations: [Chronic insomnia] Resolved: 5 08-06-2015 Chronic Comment on above: right now good not o n celexa going well Mood disorders (13 sources) Mood disorders Neoplasms of unspecified nature or uncertain behavior (18 sources) Thrombocytosis; Translations: [Thrombocytosis] 11-21-2019 Chronic Comment on above: been stable for year s since 2011. slighly high when was sick. will check CT scan of chest with smoking. ? inflammation in neck. if climb need more work up Neoplasms of unspecified nature or uncertain behavior (20 sources) Thrombocytosis; Translations: [Thrombocytosis] 05-28-2018 Episodic Comment on above: been stable for year s since 2011. slighly high when was sick. will check CT scan of chest with smoking. ? inflammation in neck. if climb need more work up Noninfectious gastroenteritis (20 sources) Gastroenteritis; Translations: [Gastroenteritis] Resolved: 5 01-08-2015 Episodic Nonmalignant breast conditions (20 sources) Fibrocystic disease of breast; Translations: [Fibrocystic breast disease] Resolved: 5 08-16-2015 Chronic Nonspecific chest pain (20 sources) Chest pain; Translations: [Chest pain] Resolved: 5 02-19-2015 Episodic Comment on above: better now and think now was the tharcic nervve acting up. Nutritional deficiencies (20 sources) Vitamin D deficiency; Translations: [Vitamin D deficiency] 05-28-2018 Chronic Occlusion or stenosis of precerebral arteries (20 sources) Carotid artery stenosis; Translations: [Carotid stenosis] 05-28-2018 Chronic Osteoporosis (1 source) Age-related osteoporosis without current pathological fracture; Translations: [Age-related osteoporosis without current pathological fracture] Onset: 5 Chronic Other acquired deformities (7 sources) Spondylolysis; Translations: [Spondylolysis, lumbar region] 05-04-2022 Episodic Other acquired deformities (7 sources) Degenerative spondylolisthesis; Translations: [Spondylolisthesis, site unspecified] 05-22-2022 Episodic Other acquired deformities (3 sources) Spondylolysis, lumbar region; Translations: [Acquired spondylolisthesis] Episodic Other acquired deformities (4 sources) Spondylolisthesis, site unspecified; Translations: [Acquired spondylolisthesis] Episodic Other bone disease and musculoskeletal deformities (20 sources) Osteopenia; Translations: [Osteopenia] 05-28-2018 Episodic Comment on above: dexa 2018 and worsen ing-- pt taking 1200ca and vit d3-- walks 3days a week -- educ min 6days /week recommended -- Other circulatory disease (20 sources) Orthostatic hypotension; Translations: [Chronic orthostatic hypotension] Resolved: 5 08-13-2015 Episodic Other gastrointestinal disorders (20 sources) Diarrhea; Translations: [DIARRHEA (Renamed from D (diarrhea))] Resolved: 4 07-10-2014 Episodic Comment on above: bettertravel history sick after eating at [employer] Other gastrointestinal disorders (1 source) Toxic gastroenteritis and colitis; Translations: [Toxic gastroenteritis and colitis] Onset: 5 Episodic Other lower respiratory disease (20 sources) Cough; Translations: [Cough] Resolved: 4 01-08-2014 Episodic Other non-traumatic joint disorders (20 sources) Shoulder pain; Translations: [Shoulder pain, left] Resolved: 5 08-06-2015 Episodic Other non-traumatic joint disorders (12 sources) Pain in left shoulder; Translations: [Shoulder pain, left] Resolved: 5 08-06-2015 Episodic Other upper respiratory infections (20 sources) Acute upper respiratory infection; Translations: [URI, acute] 05-28-2018 Episodic Residual codes; unclassified (20 sources) Postmenopausal state; Translations: [Postmenopausal] 05-28-2018 Episodic Residual codes; unclassified (20 sources) Family history of disorder; Translations: [Family history of clotting disorder] 05-28-2018 Episodic Residual codes; unclassified (20 sources) Needs influenza immunization; Translations: [Need for prophylactic vaccination and inoculation against influenza] Resolved: 6 02-11-2016 Episodic Residual codes; unclassified (20 sources) Body mass index (BMI) 23.0-23.9, adult; Translations: [Body mass index 20-24 - normal] Resolved: 3 05-28-2018 Episodic Residual codes; unclassified (7 sources) Family history of diseases of the blood and blood-forming organs and certain disorders involving the immune mechanism; Translations: [Family history of clotting disorder] 05-22-2019 Episodic Residual codes; unclassified (4 sources) Requires varicella vaccination; Translations: [Need for shingles vaccine] 02-06-2020 Episodic Screening and history of mental health and substance abuse codes (20 sources) Ex-smoker; Translations: [Former smoker, stopped smoking in distant past] 04-28-2022 Episodic Spondylosis; intervertebral disc disorders; other back problems (20 sources) Cervical spondylosis; Translations: [Cervical spondylosis with radiculopathy] Onset: 7 01-29-2019 Chronic Spondylosis; intervertebral disc disorders; other back problems (20 sources) Neck pain; Translations: [Thoracic back pain] Resolved: 8 08-06-2015 Episodic Comment on above: nsaids to chiropacto r. stretches and massage and us treatment. gave and demonstrated exercises for back and neck pain initially relie jojo by Dr. Lora chiropractor, then went to see Nolberto, but no longer seeing Nolberto because did not help.-- seeing jannie rodriguez now Substance-related disorders (20 sources) Smoker; Translations: [Current smoker] 05-28-2018 Chronic Unclassified (20 sources) Current smoker Unclassified (20 sources) Well Woman Exam (V72.31) (Pap,Mammo,Routine Female) Unclassified (20 sources) Unclassified (20 sources) Hypercholesteremia (272.0) Unclassified (20 sources) Carotid Stenosis (433.10) Unclassified (20 sources) Patient encounter status; Translations: [Encounter for general adult medical examination w/o abnormal findings (Renamed from Encounter for general adult medical examination without abnormal findings)] Resolved: 8 05-28-2018 Comment on above: colonscopy 6-15 good . mammo due next february. tell about shingles vaccine Unclassified (20 sources) Screening status; Translations: [Encounter for screening for malignant neoplasm of colon (Renamed from Special screening for malignant neoplasms, colon)] 05-28-2018 Comment on above: ordered cologard Unclassified (20 sources) HYPERTENSION, BENIGN ESSENTIAL (401.1) Unclassified (20 sources) Breast lesion on mammography Unclassified (20 sources) SYMPTOM, INSOMNIA NOS (780.52) Unclassified (20 sources) Screening for breast cancer (V76.10) Unclassified (20 sources) ANXIETY STATE NOS (300.00) Unclassified (20 sources) ORTHOSTATICS BP/P Unclassified (20 sources) Fibercystic Breast Disease (610.1) Unclassified (20 sources) DIARRHEA (Renamed from D (diarrhea)) Unclassified (18 sources) Abdominal cramping in right upper quadrant Unclassified (20 sources) Body mass index (BMI) 23.0-23.9, adult; Translations: [Body mass index 20-24 - normal] Resolved: 9 05-22-2019 Unclassified (20 sources) Postmenopausal Unclassified (20 sources) Screening mammogram, encounter for Unclassified (20 sources) PVC (premature ventricular contraction) Unclassified (20 sources) Intermittent palpitations Unclassified (20 sources) Right bundle branch block (RBBB) on electrocardiography Unclassified (20 sources) Carotid stenosis Unclassified (20 sources) Osteoarthritis of spine with radiculopathy, cervical region Unclassified (20 sources) Shoulder pain, left Unclassified (18 sources) Chronic insomnia Unclassified (20 sources) BMI 23.0-23.9, adult; Translations: [Body mass index 20-24 - normal] 05-22-2019 Unclassified (18 sources) Breast cancer screening Unclassified (10 sources) BRONCHITIS, NOT SPECIFIED ACUTE OR CHRONIC (490.) Unclassified (1 source) Low back pain, unspecified; Translations: [Low back pain, unspecified] Onset: 5 Viral infection (20 sources) Viral infection, unspecified; Translations: [Viral disease] Resolved: 4 08-09-2015 Episodic Past or Other Problems Problem Classification Problem Date Documented Date Episodic/Chronic Hepatitis (5 sources) Hepatitis Miscellaneous mental health disorders (12 sources) Chronic insomnia; Translations: [Chronic insomnia] Resolved: 08-06-2015 08-06-2015 Comment on above: right now good not o n celexa going well Other screening for suspected conditions (not mental disorders or infectious disease) (20 sources) Breast neoplasm screening status; Translations: [Other abnormal and inconclusive findings on diagnostic imaging of breast] Onset: 07-22-2013 Resolved: 02-19-2015 05-28-2018 Episodic Comment on above: both sides look like cyst but complex. in past had drained years ago Dr. mendes. will send back to Dr. shipley in the same practice to redrain and biopsy 08-06. repeat 6-14 good. return in one year ordered cologard Otitis media and related conditions (20 sources) Otitis media; Translations: [Otitis media, unspecified, unspecified ear] Resolved: 01-08-2014 10-20-2015 Episodic Spondylosis; intervertebral disc disorders; other back problems (16 sources) Spondylosis; intervertebral disc disorders; other back problems Unclassified (20 sources) Deliveries (Parity); Translations: [Deliveries (Parity)] 05-28-2018 Comment on above: 1 Unclassified (20 sources) Pregnancies (); Translations: [Pregnancies ()] 05-28-2018 Comment on above: 1 Unclassified (18 sources) Dizzy Unclassified (18 sources) Abdominal cramping in right upper quadrant (789.01) Unclassified (18 sources) Unspecified Diagnosis Resolved: 01-08-2014 01-08-2014 Unclassified (18 sources) URI, acute Unclassified (18 sources) Well woman exam with routine gynecological exam Unclassified (18 sources) Screening for HPV (human papillomavirus) (Renamed from Encounter for screening for human papillomavirus (HPV)) Unclassified (20 sources) Racing heart beat Unclassified (18 sources) 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) Family history of clotting disorder Unclassified (20 sources) Pre-operative exam (Renamed from Encounter for pre-operative examination); Translations: [Preprocedural examination done] Resolved: 04-05-2018 04-05-2018 Unclassified (18 sources) DISORDER, TOBACCO USE (305.1) Unclassified (8 sources) Finding of sensation of abdomen; Translations: [Abdominal cramping] Resolved: 01-08-2015 01-08-2015 Unclassified (9 sources) Need for shingles vaccine Unclassified (5 sources) Annual Medicare Phyiscal WITHOUT abnormal findings (Renamed from Encounter for general adult medical examination without abnormal findings) Unclassified (6 sources) BMI 21.0-21.9, adult Unclassified (2 sources) Parotitis, acute Unclassified (2 sources) Parotid sialolithiasis Unclassified (2 sources) Immunity status testing Results Test Name Value Interpretation Reference Range Facility CBC W/Diff, Automatedon 07-25 Absolute Lymph 1.25 X10 3/uL Normal 0.83-4.51 [facility] Comment on above: Performed By: #### L 100.0100, L501.2450, L500.4050 ####[facility] [address] [place], [address] Absolute Neut 11.1 X10 3/uL High 2.0-7.7 [facility] Comment on above: Performed By: #### L 100.0100, L501.2450, L500.4050 ####[facility] [address] [place], [address] Basophils/100 WBC (Bld) 0.4 % Normal 0-1 [facility] Comment on above: Performed By: #### L 100.0100, L501.2450, L500.4050 ####[facility] [address] [place], [address] Eosinophils/100 WBC (Bld) 0.7 % Normal 0-5 [facility] Comment on above: Performed By: #### L 100.0100, L501.2450, L500.4050 ####[facility] [address] [place], [address] Erythrocyte distribution width (RBC) [Ratio] 12.2 % Normal 11.6-14.6 [facility] Comment on above: Performed By: #### L 100.0100, L501.2450, L500.4050 ####[facility] [address] [place], [address] Hematocrit (Bld) [Volume fraction] 36.6 % Low 37-47 [facility] Comment on above: Performed By: #### L 100.0100, L501.2450, L500.4050 ####[facility] [address] [place], [address] Hemoglobin (Bld) [Mass/Vol] 12.8 g/dL Normal 12.0-15.0 [facility] Comment on above: Performed By: #### L 100.0100, L501.2450, L500.4050 ####[facility] [address] [place], [address] IG% 0.600 Normal 0.0-0.9 [facility] Comment on above: Result Comment: IG% - Immature Granulocytes (promyelocytes, myelocytes and metamyelocytes) > 1% indicates that a LEFT SHIFT is Present. Performed By: #### L 100.0100, L501.2450, L500.4050 ####[facility] [address] [place], [address] Lymphocytes/100 WBC (Bld) 9.1 % Low 19-41 [facility] Comment on above: Performed By: #### L 100.0100, L501.2450, L500.4050 ####[facility] [address] [place], [address] MCH (RBC) [Entitic mass] 32.2 pg High 27.0-32.0 [facility] Comment on above: Performed By: #### L 100.0100, L501.2450, L500.4050 ####[facility] [address] [place], [address] MCHC (RBC) [Mass/Vol] 35.0 g/dL Normal 32-36 [facility] Comment on above: Performed By: #### L 100.0100, L501.2450, L500.4050 ####[facility] [address] [place], [address] MCV (RBC) [Entitic vol] 92.2 fL Normal 81-99 [facility] Comment on above: Performed By: #### L 100.0100, L501.2450, L500.4050 ####[facility] [address] [place], [address] Monocytes/100 WBC (Bld) 8.6 % Normal 0-10 [facility] Comment on above: Performed By: #### L 100.0100, L501.2450, L500.4050 ####[facility] [address] [place], [address] Neutrophils/100 WBC (Bld) 80.6 % High 47-70 [facility] Comment on above: Performed By: #### L 100.0100, L501.2450, L500.4050 ####[facility] [address] [place], [address] Nucleated RBC (Bld) [#/Vol] 0 10*3/uL Normal 0-5 [facility] Comment on above: Performed By: #### L 100.0100, L501.2450, L500.4050 ####[facility] [address] [place], [address] Platelet mean volume (Bld) [Entitic vol] 9.1 fL Normal 6.2-12.0 [facility] Comment on above: Performed By: #### L 100.0100, L501.2450, L500.4050 ####[facility] [address] [place], [address] Platelets (Bld) [#/Vol] 313 10*3/uL Normal 150-450 [facility] Comment on above: Performed By: #### L 100.0100, L501.2450, L500.4050 ####[facility] [address] [place], [address] RBC (Bld) [#/Vol] 3.97 10*6/uL Low 4.2-5.4 [facility] Comment on above: Performed By: #### L 100.0100, L501.2450, L500.4050 ####[facility] [address] [place], [address] RDW SD 41.4 fl Normal 35.1-43.9 [facility] Comment on above: Performed By: #### L 100.0100, L501.2450, L500.4050 ####[facility] [address] [place], [address] WBC (Bld) [#/Vol] 13.8 10*3/uL High 4.4-11.0 [facility] Comment on above: Performed By: #### L 100.0100, L501.2450, L500.4050 ####[facility] [address] [place], [address] Comprehensive Metabolic Prof [facility] 08-05-2025 Albumin [Mass/Vol] 4.1 g/dL Normal 3.4-4.8 [facility] Comment on above: Performed By: #### L 100.0100, L501.2450, L500.4050 ####[facility] [address] [place], [address] Albumin/Globulin [Mass ratio] 1.4 {ratio} Normal 0.9-2.4 [facility] Comment on above: Performed By: #### L 100.0100, L501.2450, L500.4050 ####[facility] [address] [place], [address] ALK PHOS 61 U/L Normal 35-104 [facility] Comment on above: Performed By: #### L 100.0100, L501.2450, L500.4050 ####[facility] [address] [place], [address] ALT [Catalytic activity/Vol] 14 U/L Normal <=34 [facility] Comment on above: Performed By: #### L 100.0100, L501.2450, L500.4050 ####[facility] [address] [place], [address] AST [Catalytic activity/Vol] 24 U/L Normal <=31 [facility] Comment on above: Performed By: #### L 100.0100, L501.2450, L500.4050 ####[facility] [address] [place], [address] Bilirubin [Mass/Vol] 0.76 mg/dL Normal 0.00-1.30 [facility] Comment on above: Performed By: #### L 100.0100, L501.2450, L500.4050 ####[facility] [address] [place], [address] BUN/CRE 22.2 RATIO High 10-20 [facility] Comment on above: Performed By: #### L 100.0100, L501.2450, L500.4050 ####[facility] [address] [place], [address] Calcium [Mass/Vol] 8.7 mg/dL Normal 7.6-11.0 [facility] Comment on above: Performed By: #### L 100.0100, L501.2450, L500.4050 ####[facility] [address] [place], [address] Chloride [Moles/Vol] 99 mmol/L Normal 98-108 [facility] Comment on above: Performed By: #### L 100.0100, L501.2450, L500.4050 ####[facility] [address] [place], [address] CO2 [Moles/Vol] 25.2 mmol/L Normal 21.0-32.0 [facility] Comment on above: Performed By: #### L 100.0100, L501.2450, L500.4050 ####[facility] [address] [place], [address] Creatinine [Mass/Vol] 0.57 mg/dL Low 0.70-1.20 [facility] Comment on above: Performed By: #### L 100.0100, L501.2450, L500.4050 ####[facility] [address] [place], [address] GAP 11 Normal 5-15 [facility] Comment on above: Performed By: #### L 100.0100, L501.2450, L500.4050 ####[facility] [address] [place], [address] GFR/1.73 sq M.predicted among non-blacks MDRD (S/P/Bld) [Vol rate/Area] 98 mL/min/{1.73_m2} Normal >60 [facility] Comment on above: Result Comment: mL/m in/1.73m2 CKD-EPI Creatinine Equation (2020) Performed By: #### L 100.0100, L501.2450, L500.4050 ####[facility] [address] [place], [address] Globulin (S) [Mass/Vol] 3.0 g/dL Normal 2.2-4.2 [facility] Comment on above: Performed By: #### L 100.0100, L501.2450, L500.4050 ####[facility] [address] [place], [address] Glucose [Mass/Vol] 107 mg/dL High 70-99 [facility] Comment on above: Performed By: #### L 100.0100, L501.2450, L500.4050 ####[facility] [address] [place], [address] Potassium [Moles/Vol] 3.5 mmol/L Normal 3.3-5.1 [facility] Comment on above: Performed By: #### L 100.0100, L501.2450, L500.4050 ####[facility] [address] [place], [address] Sodium [Moles/Vol] 136 mmol/L Normal 133-145 [facility] Comment on above: Performed By: #### L 100.0100, L501.2450, L500.4050 ####[facility] [address] [place], [address] T PROT 7.0 g/dL Normal 5.9-8.4 [facility] Comment on above: Performed By: #### L 100.0100, L501.2450, L500.4050 ####[facility] [address] [place], [address] Urea nitrogen [Mass/Vol] 13 mg/dL Normal 4-19 [facility] Comment on above: Performed By: #### L 100.0100, L501.2450, L500.4050 ####[facility] [address] [place], [address] Lipaseon 08-05-2025 Lipase [Catalytic activity/Vol] 390 U/L High 13-75 [facility] Comment on above: Result Comment: Mago gomez note: LIPASE revised reference range effective 23. New Lipase methodology. Expected to produce lower values than the previous assay method. NEW Reference Range: 13 - 75 U/L Performed By: #### L 100.0100, L501.2450, L500.4050 ####[facility] [address] [place], [place], [address] Urgent Care Visit Reporton 1 10-04-2024 Urgent Care Visit Report [facility] [address], [address] [place], [place] [address] OFFICE VISIT Date of Service: 08/04/25 MR#: [id number] Acct: [id number] Name: ISRAEL BAILEY Rep #: [id number] : 1955 Provider: KINDRA Kang Age/Sex: 70/F Location[place] [facility] Status: Signed Intake Vital Signs 02/12/25 09:20 08/04/25 10:21 Height 5 ft 5 ft Weight: 123 lb 4 oz BMI 24.0 BP 110/74 Position Sitting Respiration 18 Pulse 82 Temp 98.3 F Temp Source Oral Pulse Oximetry (%) 97 Oxygen Delivery Method room air Intake Visit Reasons: NAUSEA, STOMACH CRAMPS Chief Complaint: nausea, stomach cramps Allergies No Known Allergies Allergy (Verified 08/04/25 10:21) Medications ???Medication ???Instructions ???Recorded ???Confirmed ???Type berna Lombardo B.anim miroslava 10 1 ea PO DAILY 02/23/15 08/04/25 H istory billion cell capsule amlodipine 5 mg tablet 5 mg PO DAILY 02/23/15 08/04/25 Hi story calcium 600 mg (as 1 ea PO TID 02/23/15 08/04/25 Hist ory carbonate)-vitamin D3 20 mcg (800 unit) tablet cholecalciferol (vitamin D3) 25 2,000 mg PO DAILY 07/13/16 5 History mcg (1,000 unit) tablet (Vitamin D3) multivitamin (Daily Multi-Vitamin 1 tab PO DAILY 02/12/24 08/04/25 History tablet) denosumab 60 mg/mL subcutaneous 60 mg subcut [id number] 11/06/24 History syringe (Prolia) omeprazole 20 mg capsule,delayed 20 mg PO QDAY 11/06/24 02/12/25 Hi story release atorvastatin 20 mg tablet 20 mg PO QDAY 08/04/25 08/04/25 Hi story citalopram 10 mg tablet 10 mg PO QDAY 08/04/25 08/04/25 Hi story ondansetron HCl 4 mg tablet 4 mg PO Q8H PRN nausea and 5 08/04/25 Rx vomiting #7 tabs Have you fallen in the past year?: No Nurse's Note: Patient here for Nausea and stomach pain. Patient states it started Thurs with diarrhea that was off and on. Patient states she is nauseous if she don't throw up. Patient states last night she had horrible stomach cramps all over the gut. Bowels aren't moving much and she complains of no urination issues. [facility] Medical History (Updated 08/04/25 @ 10:41 by Howard ARGUELLES, PA) Gastroenteritis due to food toxin Surgical History Hx of tonsillectomy History of cataract surgery Family History Father Cancer Other Hypertension Social History Smoking Status: Former smoker Tobacco: How many years used: 30 HPI HPI Chief Complaint: nausea, stomach cramps Details: ISRAEL BAILEY, is a 70 F who presents to the office today for initial evaluation at the [facility] for approximately 5-day history of persistent nausea without emesis or hematochezia. She admits stool has been darker appearing noting this is likely due to the bismuth that she has been taking to help with her abdominal discomfort. She does symptoms several hours after reheating/consuming a burrito she purchased at a local restaurant the day before (07/29/2025). She noted initially having generalized abdominal discomfort, though stating more localized in the lower abdomen now. She notes no complaints of fever, chills, sweats, lightheadedness/dizziness - though does admit dry mouth and slight dizziness with standing after sitting for extended period. She notes no complaints of chest pressure or shortness of breath or dyspnea on exertion or back pain. Other than bismuth she has taken jmfk-nin-rzhqlao products to assist with symptoms. She notes no other associated symptoms and no other alleviating/aggravating factors. ROS Const Constitutional: No other (As above) Exam Const General: cooperative, healthy appearing and no acute distress Nutritional Appearance: average body habitus Orientation: alert and awake [facility] Head: normal to inspection Ears: hearing grossly normal bilaterally, external ears normal, TM's normal bilaterally and EAC's normal Nose: external nose normal, nares normal, septum normal and no nasal discharge Neck Neck: normal visual inspection and no meningeal signs Chest Chest palpation inspection: normal inspection of the chest Resp Effort Inspection: normal respiratory effort and able to speak in complete sentences Cardio Rate: regular rate Pulses: radial pulses present GI Inspection: normal to inspection Palpation: soft, no hepatosplenomegaly, not firm, no guarding and tender in the LLQ, in the RLQ, in the LUQ and with rebound tenderness; not suprapubicly and Mejia's sign negative Skin General: no rashes or lesions noted Neuro General: patient alert and patient awake Cognition: normal cognition Speech: speech normal Extrem General: normal to inspection Psych Appearance: (more content not included)... Normal [facility] Echo Completeon 11-13-2024 Echo Complete [facility] [address] [place] [address] Echo Complete 11/13/24 0809 MR#: [id number] Acct: [id number] Name: ISRAEL BAILEY Rep #: [id number] : 1955 69 From: Gris Tovar MD Attending Dr: Dr. Iman Nazario, Status: R EG CLI Ordering Dr: Iman Nazario DO Date: 11/13/24 Location: [facility] Sex: F C Admitted: Reason For Study Reason For Study: AV DISORDERS Procedure This was a 2D Doppler, Color Flow transthoracic echocardiogram. Exam performed in department. Left Ventricle Normal size and thickness. Left ventricular systolic function is normal. The left ventricular ejection fraction is 65 %. No evidence for diastolic dysfunction. Right Ventricle Normal right ventricle. Atria The left and right atria are normal. Mitral Valve Trivial mitral valve insufficiency. Tricuspid Valve Trivial tricuspid valve insufficiency. Normal pulmonary artery pressure. Aortic Valve Trisinus/trileaflet aortic valve. Mild focal aortic valve calcification. Pulmonic Valve The pulmonic valve is not well visualized. Trivial pulmonic valve insufficiency. Great Vessels Normal sized aortic root. Pericardium/Pleural No pericardial effusion. MMode/2D Measurements Calculations LVIDd: 4.8 cm IVSd: 0.91 cm LVOT diam: 2.0 cm LVIDs: 3.7 cm LVPWd: 0.87 cm LVOT area: 3.0 cm2 RVDd: 2.4 cm FS: 21.8 % Ao root diam: 2.6 cm LAV(MOD-bp): 25.2 ml LVAd ap4: 20.0 cm2 LAV(MOD-bp) Indexed: 16.6 ml/m2 LVLd ap4: 7.5 cm LAV(MOD-sp2): 21.1 ml EDV(MOD-sp4): 45.7 ml LAV(MOD-sp4): 24.8 ml EDV(sp4-el): 45.6 ml LVAs ap4: 9.8 cm2 LVLs ap4: 5.9 cm ESV(MOD-sp4): 15.2 ml ESV(sp4-el): 13.9 ml EF(MOD-sp4): 66.8 % EF(sp4-el): 69.6 % SV(MOD-sp4): 30.5 ml SV(sp4-el): 31.7 ml LA A4 area: 12.2 cm2 SI(MOD-sp4): 20.2 ml/m2 LA dimension(2D): 3.1 cm RA A4 area: 6.8 cm2 Time Measurements MV dec time: 0.18 sec Doppler Measurements Calculations MV E max corey: 80.7 cm/sec Lat Peak E' Corey: 9.1 cm/sec Med Peak E' Corey: 7.9 cm/sec MV A max corey: 76.8 cm/sec E/E' lat: 8.8 E/E' med: 10.3 MV E/A: 1.1 MV V2 max: 92.3 cm/sec Ao V2 max: 115.2 cm/sec MV max P.4 mmHg MV dec slope: 454.2 cm/sec2 Ao max P.3 mmHg MV V2 mean: 66.1 cm/sec Ao V2 mean: 80.8 cm/sec MV mean P.9 mmHg Ao mean P.0 mmHg MV V2 VTI: 31.9 cm Ao V2 VTI: 28.8 cm AV (velocity ratio): 0.92 MVA(VTI): 2.5 cm2 CARLA(I,D): 2.8 cm2 CARLA(V,D): 2.9 cm2 LV V1 max: 109.1 cm/sec SV(LVOT): 80.6 ml PA V2 max: 86.0 cm/sec LV V1 max P.8 mmHg PA V2 mean: 62.1 cm/sec LV V1 mean P.8 mmHg LV V1 mean: 79.1 cm/sec LV V1 VTI: 26.5 cm PI end-d corey: 85.1 cm/sec TR max corey: 199.3 cm/sec TR max P.9 mmHg ECHO/Echo Complete Interpretation Summary The left ventricular ejection fraction is 65 %. No evidence for diastolic dysfunction. Mild focal aortic valve calcification. Ordering Physician: Iman Nazario Referring Physician: Iman Nazario Performed By: Milka Batres RCS 11/13/241212 Date Gris Tovar MD CC: Dr. Iman Nazario DO Date Dictated: 02/20/25 0809 Date Transcribed: 11/13/24 1213 Nc Machinist: Signed Normal [facility] L/S Spine Min 4 Viewson 10-25 L/S Spine Min [address] [facility] [address] [place], [place] [address] L/S Spine Min 4 Views MR#: [id number] Acct: [id number] Name: ISRAEL BAILEY Rep #: [id number] : 1955 F 69 From: Emiliano Villagomez MD PCP: Dr. Iman Nazario DO Status: DEP AMB Study: L/S Spine Min 4 Views Date of Exam: 11/06/24 Exam# [id number] Ordering Dr: Montserrat Tejada EXAM: XR Lumbosacral Spine, 4 or 5 Views CLINICAL INDICATION: TECHNIQUE: Frontal, lateral and bilateral oblique views of the lumbar spine. COMPARISON: No relevant prior studies available. FINDINGS: VERTEBRAE: Facet arthropathy of L4-S1. No acute fracture. Normal alignment. SACRUM/COCCYX: Unremarkable as visualized. No acute fracture. DISC SPACES: No acute findings. No significant narrowing. SOFT TISSUES: Unremarkable. RAD/L/S Spine Min 4 Views IMPRESSION: Facet arthropathy of L4-S1. Reading [facility] CC: KINDRA Smith; Dr. Iman Nazario DO Nc Machinist: Signed Normal [facility] Orthopedic Visit Reporton Orthopedic Visit Report [facility] [address] [place] [address] [address] [place] [address] OFFICE VISIT Date of Service: 11/06/24 MR#: [id number] Acct: [id number] Name: ISRAEL BAILEY Rep #: [id number] : 1955 Provider: Dr. Devon Frausto MD Age/Sex: 69/F Location[place] [facility] Status: Signed Intake Vital Signs 08/18/24 07:52 11/06/24 10:45 Height 5 ft 5 ft Weight: 127 lb 4 oz BMI 24.8 Intake Visit Reasons: LUMBAR SPINE Accompanied by: Is patient in pain?: Yes Pain scale (1-10): 4 Allergies No Known Allergies Allergy (Verified 11/06/24 10:45) Medications ???Medication ???Instructions ???Recorded ???Confirmed ???Type L.acidema,Irene coronel.anim miroslava 10 1 ea PO DAILY 02/23/15 11/06/24 H istory billion cell capsule amlodipine 5 mg tablet 5 mg PO DAILY 02/23/15 11/06/24 Hi story atorvastatin 10 mg tablet 20 mg PO QHS 02/23/15 11/06/24 His tory calcium 600 mg (as 1 ea PO TID 02/23/15 11/06/24 Hist ory carbonate)-vitamin D3 20 mcg (800 unit) tablet cholecalciferol (vitamin D3) 25 2,000 mg PO DAILY 07/13/16 5 History mcg (1,000 unit) tablet (Vitamin D3) multivitamin (Daily Multi-Vitamin 1 tab PO DAILY 02/12/24 11/06/24 History tablet) denosumab 60 mg/mL subcutaneous 60 mg subcut [id number] 11/06/24 History syringe (Prolia) omeprazole 20 mg capsule,delayed 20 mg PO QDAY 11/06/24 11/06/24 Hi story release Have you fallen in the past year?: No PFSH Surgical History History of cataract surgery Hx of tonsillectomy Family History Father Cancer Other Hypertension Social History Smoking Status: Former smoker Tobacco: How many years used: 30 HPI LUMBAR SPINE Details: This documentation accurately reflects the service provided and the decisions made by me, Dr. Devon Frausto MD 11/06/24 1037. Part of today???s visit was documented by [ ], acting as scribe. ISRAEL BAILEY is a 69 year old F here today for low back pain. Patient notes that she has had pain since 2021 with her pain worsening. She complains of pain on her right low back. She also has radiating pain into her right leg, into her foot. She also has numbness and tingling into her right leg. Patient notes that she has increased pain with prolonged standing, walking or sitting. Her pain is better in the morning and progresses throughout the day. She sees Dr Huntley and has injections which are not as helpful as long. Patients injections help for a short period of time, sometimes a week and others about a month. Patients most recent injection was in August. She has another appointment in November. She completed physical therapy in 2022 which was helpful short term, she was given a home exercise program. Patient had a MRI on 05/19/24 which is here for review. She takes ibuprofen and tylenol for pain. Ortho Exam General General: Yes no acute distress Neurologic: Yes alert and Yes oriented x3 Spine SPINE TESTING CERVICAL THORACIC LUMBAR Musculoskeletal Strength 0=absent - 5=normal Details: Examination back shows midline and right paraspinal tenderness. Neurologic motion lower extremity shows 5 x 5 power in all muscles normal sensations in all dermatomes. There is no hyperreflexia. Coding Level of Care Code Off vis,est,level 5 Diagnoses Spondylolisthesis, lumbar region M43.16 Spinal stenosis of lumbar region with neurogenic claudication M48.062 Osteoporosis without current pathological fracture, unspecified osteoporosis type M81.0 Osteoporosis type: unspecified Presence of current pathological fracture: without current pathological fracture Time Spent (min) 45 Assessment and Plan Assessment and Plan (1) Spondylolisthesis, lumbar region: Status: Acute (2) Spinal stenosis of lumbar region with neurogenic claudication: Status: Acute (3) Osteoporosis: Status: Acute Qualifiers: Osteoporosis type: unspecified Presence of current pathological fracture: without current pathological fracture Qualified Code(s): M81.0 - Age-related osteoporosis without current pathological fracture Orders: Orders L/S Spine Min 4 Views Today M54.50 - Low back pain, unspecified Plan Obtain x-rays of lumbar spine today in the clinic and also reviewed MRI from April of last year. DEXA scan from 2022 shows osteoporosis and patient has taken 2 doses of Prolia over the last year. X-rays and MRI show L5-S1 grade 1 spondylolisthesis with mild dynamic instability with foraminal stenosis. L4-5 shows disc degeneration with a tiny disc herniation and moderate lateral recess stenosis bilaterally. Significant osteopenia noted on x-rays. Explained imag (more content not included)... Normal [facility] CT CARDIAC SCORING WO IV CON TRASTon 10-20-2024 CT CARDIAC SCORING WO IV CONTRAST Interpreted By: Ej Clarke, STUDY: CT CARDIAC SCORING WO IV CONTRAST; 10/20/2024 9:06 am INDICATION: Signs/Symptoms:SCREENING FOR CARDIAC DISORDERS. COMPARISON: None. ACCESSION NUMBER(S): [id number] ORDERING CLINICIAN: IMAN NAZARIO TECHNIQUE: Using prospective ECG gating, limited CT scan of the chest for evaluation of coronary arteries was performed without intravenous contrast. Coronary calcium scoring was performed according to the method of Agatston. FINDINGS: The score and distribution of calcium in the coronary arteries is as follows: LM: 0. LAD: 32.7. LCx: 0. RCA: 0. Total: 32.7. The visualized segments of the lungs are normally expanded. Bibasilar atelectasis. The visualized mid/lower ascending thoracic aorta measures 3 cm in diameter. Some calcifications about the aortic root. Mild vascular calcifications. The heart is borderline enlarged. No significant pericardial effusion is present. No gross evidence of mediastinal or hilar lymphadenopathy is identified. Small hiatal hernia. IMPRESSION: 1. Coronary artery calcium score of 32.7*. 2. Some calcifications about the aortic root. Correlate with concern for aortic stenosis. 3. Additional findings as above. *Coronary artery calcium scoring may be helpful in predicting the risk for future coronary heart disease events. According to the [employer] Clinical Expert Consensus Task Force, such testing provides important prognostic information in patients with more than one coronary heart disease risk factor. The coronary artery calcium score correlates with the annual risk of a non-fatal myocardial infarction or coronary heart disease . Coronary artery score Annual Risk 0-99 0.4% 100-399 1.3% >400 2.4% These three "breakpoints" correspond to lower, intermediate and high risk states for future coronary events. Such information should be used, along with appropriate clinical judgment, to make decisions regarding the intensity of risk factor management strategies to treat blood lipids and to modify other non-lipid coronary risk factors. Reference: [place] P et al. Circulation. 2007; 115:402-426 MACRO: None Signed by: Ej Clarke 10/20/2024 5:49 PM Dictation workstation: [id number] [facility] CT for calcium scoring WO co ntrast and CTA W contrast IV Heart and coronary arterieson 10-20-2024 1. Coronary artery c alcium score of 32.7*. 2. Some calcifications about the aortic root. Correlate with concern for aortic stenosis. 3. Additional findings as above. *Coronary artery calcium scoring may be helpful in predicting the risk for future coronary heart disease events. According to the [employer] Clinical Expert Consensus Task Force, such testing provides important prognostic information in patients with more than one coronary heart disease risk factor. The coronary artery calcium score correlates with the annual risk of a non-fatal myocardial infarction or coronary heart disease . Coronary artery score Annual Risk 0-99 0.4% 100-399 1.3% >400 2.4% These three "breakpoints" correspond to lower, intermediate and high risk states for future coronary events. Such information should be used, along with appropriate clinical judgment, to make decisions regarding the intensity of risk factor management strategies to treat blood lipids and to modify other non-lipid coronary risk factors. Reference: [place] P et al. Circulation. 2007; 115:402-426 MACRO: None Signed by: Ej Clarke 10/20/2024 5:49 PM Dictation workstation: [id number] MMODAL Interpreted By: Ej Abdi, STUDY: CT CARDIAC SCORING WO IV CONTRAST; 10/20/2024 9:06 am INDICATION: Signs/Symptoms:SCREENING FOR CARDIAC DISORDERS. COMPARISON: None. ACCESSION NUMBER(S): [id number] ORDERING CLINICIAN: IMAN NAZARIO TECHNIQUE: Using prospective ECG gating, limited CT scan of the chest for evaluation of coronary arteries was performed without intravenous contrast. Coronary calcium scoring was performed according to the method of Agatston. FINDINGS: The score and distribution of calcium in the coronary arteries is as follows: LM: 0. LAD: 32.7. LCx: 0. RCA: 0. Total: 32.7. The visualized segments of the lungs are normally expanded. Bibasilar atelectasis. The visualized mid/lower ascending thoracic aorta measures 3 cm in diameter. Some calcifications about the aortic root. Mild vascular calcifications. The heart is borderline enlarged. No significant pericardial effusion is present. No gross evidence of mediastinal or hilar lymphadenopathy is identified. Small hiatal hernia. MMODAL Ej Clarke, DO - 10/20/2024 Interpreted By: Ej Clarke, STUDY: CT CARDIAC SCORING WO IV CONTRAST; 10/20/2024 9:06 am INDICATION: Signs/Symptoms:SCREENING FOR CARDIAC DISORDERS. COMPARISON: None. ACCESSION NUMBER(S): [id number] ORDERING CLINICIAN: IMAN NAZARIO TECHNIQUE: Using prospective ECG gating, limited CT scan of the chest for evaluation of coronary arteries was performed without intravenous contrast. Coronary calcium scoring was performed according to the method of Agatston. FINDINGS: The score and distribution of calcium in the coronary arteries is as follows: LM: 0. LAD: 32.7. LCx: 0. RCA: 0. Total: 32.7. The visualized segments of the lungs are normally expanded. Bibasilar atelectasis. The visualized mid/lower ascending thoracic aorta measures 3 cm in diameter. Some calcifications about the aortic root. Mild vascular calcifications. The heart is borderline enlarged. No significant pericardial effusion is present. No gross evidence of mediastinal or hilar lymphadenopathy is identified. Small hiatal hernia. IMPRESSION: 1. Coronary artery calcium score of 32.7*. 2. Some calcifications about the aortic root. Correlate with concern for aortic stenosis. 3. Additional findings as above. *Coronary artery calcium scoring may be helpful in predicting the risk for future coronary heart disease events. According to the [employer] Clinical Expert Consensus Task Force, such testing provides important prognostic information in patients with more than one coronary heart disease risk factor. The coronary artery calcium score correlates with the annual risk of a non-fatal myocardial infarction or coronary heart disease . Coronary artery score Annual Risk 0-99 0.4% 100-399 1.3% >400 2.4% These three "breakpoints" correspond to lower, intermediate and high risk states for future coronary events. Such information should be used, along with appropriate clinical judgment, to make decisions regarding the intensity of risk factor management strategies to treat blood lipids and to modify other non-lipid coronary risk factors. Reference: [place] P et al. Circulation. 2007; 115:402-426 MACRO: None Signed by: Ej Clarke 10/20/2024 5:49 PM Dictation workstation: [id number] [facility] Work Phone: Radiology Study observation (narrative) [facility] Work Phone: CT for calcium scoring WO co ntrast and CTA W contrast IV Heart and coronary arteriesOrdered By: Ej Clarke on 10-20-2024 [facility] Work Phone: Low Dose CT Lung Screeningon 09-10-[address] [facility] Imaging Services [address] [place] [address] Lung Screening MR#: [id number] Acct: [id number] Name: ISRAEL BAILEY Rep #: [id number] : 1955 F 69 From: Pedro Luis joseph MD PCP: Dr. Iman Nazario DO Status: REG CLI Study: Low Dose CT Lung Screening Date of Exam: 09/10 Exam# [id number] Ordering Dr: Iman Nazario DO [id number] STUDY: LOW DOSE CT LUNG CANCER SCREENING REASON FOR EXAM: Female, 69 years old. Former smoker, stopped smoking in distant past. Patient smokes half a pack per day for 40 years. RADIATION DOSAGE (If Supplied By Facility): CTDIvol = ( 2.01 ) mGy, DLP = ( 66.95 ) mGycm TECHNIQUE: No contrast was administered. Low dose technique was utilized (average mAS-38 and kVp 120). 1.25 mm axial source images with a slice interval of 1.25-mm were reconstructed in lung windows. 2.5 mm axial source images with a slice interval of 2.5-mm were reconstructed in lung windows. 5.0 mm axial source images with a slice interval of 5.0-mm were reconstructed in soft tissue windows. COMPARISON: Comparison is made with prior study July 30, 2023. NODULES: No suspicious nodules are seen. Emphysema: Stable scarring at both lung apices worse on the right lung apex. Stable minimal linear scarring at the left lung base. Endobronchial lesion: None Aorta: Atherosclerotic plaque formation of the aortic arch. CORONARY ARTERIES: Coronary artery calcification is seen. Heart: Unremarkable Pulmonary artery: Unremarkable Mediastinal nodes: Unremarkable Other chest and abdominal findings: CT/Low Dose CT Lung Screening IMPRESSION: Lung-RADS category 2 - Continue annual screening with LDCT in 12 months. IMPORTANT NOTES FOR USE: ACR Lung-RADS Version 1.1 Assessment Categories Release Date: 2018 Category: Coded 0-4 bases on nodule(s) with highest degree of suspicion. Negative screen is defined as categories 1 and 2; a positive screen is defined as categories 3 and 4. Category 3 and 4A nodules that are unchanged on interval CT should be coded as category 2, and individuals returned to screening in 12 months. Category 4X: Category 3 or 4 nodules with additional imaging findings that increase the suspicion of lung cancer, such as spiculation, GGN that doubles in size in 1 year, enlarged lymph notes, etc. Category Modifiers: S (significant finding unrelated to lung cancer) Electronically Signed: Pedro Luis Thacker MD at 12:55 EST Reading Location ID and State: [facility] / [place] , Service support , CC: Dr. Iman Nazario DO Nc Machinist: Signed Normal [facility] SCRN MAMM (CAD)W/PUSHPA BILATo n 09-10-2024 SCRN MAMM (CAD)W/PUSHPA BILAT [facility] Imaging Services [address] [place] [address] SCRN MAMM (CAD)W/PUSHPA BILAT MR#: [id number] Acct: [id number] Name: ISRAEL BAILEY Rep #: [id number] : 1955 F 69 From: Pedro Luis joseph MD PCP: Dr. Iman Nazario DO Status: REG CLI Study: SCRN MAMM (CAD)W/PUSHPA BILAT Date of Exam: 08/24 05/17 Exam# [id number] Ordering Dr: Iman Nazario DO [id number] MAMMOGRAPHY - BILATERAL SCREENING REASON FOR EXAM: Female, 69 years old. Routine annual screening examination. PERTINENT HISTORY: Non-contributory. History of bilateral stereotactic breast biopsies. TECHNIQUE: Digital bilateral breast pushpa (3D mammographic acquisition) in the CC and MLO projections. 2-D mediolateral oblique (MLO) and craniocaudad (CC) views of both breasts were obtained. CAD: Full Field Digital Mammography with Computer Added Detection was performed. COMPARISON: Comparison is made with prior study dated August 09, 2023 and July 28, 2022. FINDINGS: Breast Composition: The breasts are heterogeneously dense, which may obscure small masses. There are no dominant masses or suspicious calcifications. A tissue clip marker is once again seen in the deep slightly upper medial aspect of the right breast. A tissue clip marker is also seen in the deep upper central portion of the left breast. Stable bilateral fat-containing axillary lymph nodes. No other significant abnormalities are identified. There has been no significant change since the prior study. BI/SCRN MAMM (CAD)W/PUSHPA BILAT IMPRESSION: Stable bilateral screening mammogram. Yearly follow-up mammogram recommended. (A) ASSESSMENT CATEGORY: BIRADS Category 2: Benign. A letter regarding these results will be sent to the patient by the facility within 30 days. Approximately 10% of breast cancers are not detected by mammography. A normal mammogram should not delay biopsy of a clinically suspicious abnormality. [id number] Electronically Signed: Pedro Luis Thacker MD at 14:44 EST , CC: Dr. Iman Nazario DO Nc Machinist: Signed Normal [facility] [id number] 08-17-2024 ABO and Rh group Nom (Bld) Blood group A Rh(D) positive Normal [facility] Comment on above: Order Comment: 0800 Performed By: #### Irene LIU, B88- #### [facility] [address] [place], [place], [address] BCRYOon 08-17-2024 CRYO Normal [facility] Comment on above: Result Comment: [id number] OP CRYO TRANSFUSED 08/18/24 08 [id number] AP CRYO TRANSFUSED 08/18/24801 Performed By: #### B CRYO, [id number] #### [facility] [address] [place], [address] Result Comment: [id number] AP CRYO ISSUED 08/18/24801 CNPNon 07-03-2024 CNPN Telephone (HEMCA4) -- ISRAEL BAILEY ([id number]) 1955 F Date Time Provider Department 07/03/24 ABHAY BOWDEN HEMCA4 During your visit today, we recorded the following information about you: Abhay Bowden MD 07/03/2024 3:58 PM Signed Patient sent message that she's doing to have more cataract surgery--in the L eye. 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 Recommended she received the same--2 units of cryo. She will let her manager diabetes know. Abhay Bowden MD Allergies As of Date: 07/03/2024 Noted Allergy Reaction SEASONAL ALLERGIES 07/15/2013 14 - Other: See Comments Date Reviewed: 11/14/2016 Reviewed by: Nurys Moreno)KYLIE - Fully Assessed Prescriptions as of 07/03/2024 - cyclobenzaprine (FLEXERIL) 5 mg tablet Take 10 mg by mouth daily at bedtime. - naproxen sodium (ALEVE) 220 mg cap Take 1 tablet by mouth four times daily as needed. - amLODIPine 2.5 mg tablet Take 5 mg by mouth once daily. - atorvastatin 20 mg tablet Take 10 mg by mouth once daily. - CALCIUM CARBONATE/VITAMIN D2 (CALCIUM + VITAMIN D ORAL) Take by mouth twice daily. - Multivitamin capsule Take 1 capsule by mouth once daily. 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] 11/14/2016 Encounter Status:Closed by ABHAY BOWDEN on 07/03/24 Normal [facility] CALCIFIDIOL (64502) VIT D 25 Ordered By: Wine Steward on 01-03-2023 25-hydroxyvitamin D [Mass/Vol] 87.5 ng/mL Normal 30.0-100.0 [facility]; [facility] Work Phone: CBC W/AUTO DIFF WBC ([id number])O rdered By: Wine Steward on 01-03-2023 Basophils (Bld) [#/Vol] 0.1 10*3/uL Normal 0.0-0.2 [facility]; [facility] Work Phone: Basophils/100 WBC (Bld) 1 % Normal [facility]; [facility] Work Phone: Eosinophils (Bld) [#/Vol] 0.1 10*3/uL Normal 0.0-0.4 [facility]; [facility] Work Phone: Eosinophils/100 WBC (Bld) 1 % Normal [facility]; [facility] Work Phone: Erythrocyte distribution width (RBC) [Ratio] 12.1 % Normal 11.7-15.4 [facility]; [facility] Work Phone: Hematocrit (Bld) [Volume fraction] 42.0 % Normal 34.0-46.6 [facility]; [facility] Work Phone: Hemoglobin (Bld) [Mass/Vol] 13.9 g/dL Normal 11.1-15.9 [facility]; [facility] Work Phone: Immature granulocytes (Bld) [#/Vol] 0.0 10*3/uL Normal 0.0-0.1 [facility]; [facility] Work Phone: Immature granulocytes/100 WBC (Bld) 0 % Normal [facility]; [facility] Work Phone: Lymphocytes (Bld) [#/Vol] 2.2 10*3/uL Normal 0.7-3.1 [facility]; [facility] Work Phone: Lymphocytes/100 WBC (Bld) 33 % Normal [facility]; [facility] Work Phone: MCH (RBC) [Entitic mass] 32.3 pg Normal 26.6-33.0 [facility]; [facility] Work Phone: MCHC (RBC) [Mass/Vol] 33.1 g/dL Normal 31.5-35.7 [facility]; [facility] Work Phone: MCV (RBC) [Entitic vol] 98 fL Abnormal 79-97 [facility]; [facility] Work Phone: Monocytes (Bld) [#/Vol] 0.6 10*3/uL Normal 0.1-0.9 [facility]; [facility] Work Phone: Monocytes/100 WBC (Bld) 9 % Normal [facility]; [facility] Work Phone: Neutrophils (Bld) [#/Vol] 3.6 10*3/uL Normal 1.4-7.0 [facility]; [facility] Work Phone: Neutrophils/100 WBC (Bld) 56 % Normal [facility]; [facility] Work Phone: Platelets (Bld) [#/Vol] 320 10*3/uL Normal 150-450 [facility]; [facility] Work Phone: RBC (Bld) [#/Vol] 4.30 10*6/uL Normal 3.77-5.28 [facility]; [facility] Work Phone: WBC (Bld) [#/Vol] 6.5 10*3/uL Normal 3.4-10.8 [facility]; [facility] Work Phone: LIPID PANEL ([id number])Ordered B y: Wine Steward on 01-03-2023 Cholesterol [Mass/Vol] 173 mg/dL Normal 100-199 [facility]; [facility] Work Phone: Cholesterol in HDL [Mass/Vol] 68 mg/dL Normal [facility]; [facility] Work Phone: Triglyceride [Mass/Vol] 65 mg/dL Normal 0-149 [facility]; [facility] Work Phone: LIPID PANEL ([id number]) 13 mg/dL Normal 5-40 [facility]; [facility] Work Phone: LIPID PANEL ([id number]) 92 mg/dL Normal 0-99 [facility]; [facility] Work Phone: LIPID PANEL ([id number]) 1.4 {ratio} Normal 0.0-3.2 [facility]; [facility] Work Phone: METABOLIC PANEL, COMPREHENSI VE ([id number])Ordered By: Wine Steward on 01-03-2023 Albumin [Mass/Vol] 4.4 g/dL Normal 3.8-4.8 [facility]; [facility] Work Phone: Albumin/Globulin [Mass ratio] 1.9 {ratio} Normal 1.2-2.2 [facility]; [facility] Work Phone: ALP [Catalytic activity/Vol] 52 U/L Normal 44-121 [facility]; [facility] Work Phone: ALT [Catalytic activity/Vol] 17 U/L Normal 0-32 [facility]; [facility] Work Phone: AST [Catalytic activity/Vol] 25 U/L Normal 0-40 [facility]; [facility] Work Phone: Bilirubin [Mass/Vol] 0.6 mg/dL Normal 0.0-1.2 [facility]; [facility] Work Phone: Calcium [Mass/Vol] 9.7 mg/dL Normal 8.7-10.3 [facility]; [facility] Work Phone: Chloride [Moles/Vol] 102 mmol/L Normal 96-106 [facility]; [facility] Work Phone: CO2 [Moles/Vol] 24 mmol/L Normal 20-29 [facility]; [facility] Work Phone: Creatinine [Mass/Vol] 0.81 mg/dL Normal 0.57-1.00 [facility]; [facility] Work Phone: Globulin (S) [Mass/Vol] 2.3 g/dL Normal 1.5-4.5 [facility]; [facility] Work Phone: Glucose [Mass/Vol] 90 mg/dL Normal 70-99 [facility]; [facility] Work Phone: Potassium [Moles/Vol] 4.6 mmol/L Normal 3.5-5.2 [facility]; [facility] Work Phone: Protein [Mass/Vol] 6.7 g/dL Normal 6.0-8.5 [facility]; [facility] Work Phone: Sodium [Moles/Vol] 142 mmol/L Normal 134-144 [facility]; [facility] Work Phone: Urea nitrogen [Mass/Vol] 17 mg/dL Normal 8-27 [facility]; [facility] Work Phone: Urea nitrogen/Creatinine [Mass ratio] 21 mg/mg Normal 12-28 [facility]; [facility] Work Phone: METABOLIC PANEL, COMPREHENSIVE ([id number]) 80 mL/min/1.73 Normal [facility]; [facility] Work Phone: MICROALBUMINOrdered By: Syst em [employer] Panels Deburrer on 01-03-2023 Albumin DL <= 20 mg/L (U) [Mass/Vol] mg/dL Normal [facility]; [facility] Work Phone: Albumin/Creatinine (U) [Mass ratio] <9 Normal 0-29 [facility]; [facility] Work Phone: Creatinine (U) [Mass/Vol] 35.1 mg/dL Normal [facility]; [facility] Work Phone: TSH ([id number])Ordered By: Weight Wins m [employer] Deburrer on 01-03-2023 TSH Qn 1.420 {uIU/mL} Normal 0.450-4.50 0 [facility]; [facility] Work Phone: URINALYSIS, W/ MICRO ([id number]) Ordered By: Wine Steward on 01-03-2023 Appearance (U) Clear Normal [facility]prehens [facility]; [facility] Work Phone: Bilirubin Ql (U) Negative Normal Comprehe nsive [facility]; [facility] Work Phone: Color (U) Yellow Normal [facility]; [facility] Work Phone: Glucose Ql (U) Negative Normal Comprehens [facility]; [facility] Work Phone: Hemoglobin Ql (U) Negative Normal Compreh ensive [facility]; [facility] Work Phone: Ketones Ql (U) Negative Normal Comprehens [facility]; [facility] Work Phone: Leukocyte esterase Test strip Ql (U) Negative Normal [facility]; [facility] Work Phone: Microscopic observation LM Nom (Urine sed) MICRON Normal [facility]; [facility] Work Phone: Microscopic observation LM Nom (Urine sed) See below: Normal [facility]; [facility] Work Phone: Nitrite Ql (U) Negative Normal [facility]prehens [facility]; [facility] Work Phone: pH (U) 6.5 [pH] Normal 5.0-7.5 [facility]; [facility] Work Phone: Protein Ql (U) Negative Normal Comprehens [facility]; [facility] Work Phone: Specific gravity (U) [Rel density] 1.011 1 Normal 1.005-1.03 0 [facility]; [facility] Work Phone: Urobilinogen (U) [Mass/Vol] 0.2 mg/dL Normal 0.2-1.0 [facility]; [facility] Work Phone: Absolute lymphocyte counton 08-14-2022 Lymphocytes Auto (Unsp spec) [#/Vol] 2.18 10*3/uL 0.83-4.51 [facility] Work Phone: Basophil percentageon 2021 Basophils/100 WBC (Bld) 0.7 % 0-1 [facility] Work Phone: Bilirubin [Mass/Vol] 0.60 mg/dL 0.20-1.00 [facility] Work Phone: Comment on above: For patients on eltr ombopag therapy, use of Dimension [place] TBIL is not recommended. Chloride [Moles/Vol] 105 mmol/L 98-107 [facility] Work Phone: Eosinophils/100 WBC (Bld) 0.5 % 0-5 [facility] Work Phone: Glucose [Mass/Vol] 94 mg/dL 74-106 [facility] Work Phone: Neutrophils (Bld) [#/Vol] 4.5 10*3/uL 2.0-7.7 [facility] Work Phone: Neutrophils/100 WBC (Bld) 60.7 % 47-70 [facility] Work Phone: Potassium [Moles/Vol] 4.4 mmol/L 3.5-5.1 [facility] Work Phone: Protein [Mass/Vol] 7.8 g/dL 6.4-8.2 [facility] Work Phone: Sodium [Moles/Vol] 140 mmol/L 136-145 [facility] Work Phone: WBC (Bld) [#/Vol] 7.4 10*3/uL 4.4-11.0 [facility] Work Phone: Blood erythrocytes count (nu mber/volume)on 08-14-2022 RBC (Bld) [#/Vol] 4.19 10*6/uL 4.2-5.4 [facility] Work Phone: Blood hemoglobin measurement (mass/volume)on 08-14-2022 Hemoglobin (Bld) [Mass/Vol] 13.6 g/dL 12.0-15.0 [facility] Work Phone: Blood lymphocytes/100 leukoc yteson 08-14-2022 Lymphocytes/100 WBC (Bld) 29.4 % 19-41 [facility] Work Phone: Blood monocytes/100 leukocyt eson 08-14-2022 Monocytes/100 WBC (Bld) 8.4 % 0-10 [facility] Work Phone: Blood platelet mean volumeon 08-14-2022 Platelet mean volume (Bld) [Entitic vol] 9.7 fL 6.2-12.0 [facility] Work Phone: Determination of erythrocyte mean corpuscular volume (MCV)on 08-14-2022 MCV (RBC) [Entitic vol] 98.1 fL 81-99 [facility] Work Phone: Erythrocyte sedimentation ra selin 08-14-2022 ESR (Bld) [Velocity] 10 mm/h 0-30 [facility] Work Phone: Hematocrit Auto (Bld) [Volum e fraction]on 08-14-2022 Hematocrit (Bld) [Volume fraction] 41.1 % 37-47 [facility] Work Phone: Laboratory - Chemistry and C hemistry - challengeon 08-14-2022 ALP [Catalytic activity/Vol] 55 U/L 45-117 [facility] Work Phone: ALT [Catalytic activity/Vol] 29 U/L 13-56 [facility] Work Phone: CO2 [Moles/Vol] 31.0 mmol/L 21.0-32.0 [facility] Work Phone: Globulin (S) [Mass/Vol] 3.4 g/dL 2.2-4.2 [facility] Work Phone: Urea nitrogen/Creatinine [Mass ratio] 23.9 mg/mg 10-20 [facility] Work Phone: Laboratory - Hematology and Cell countson 08-14-2022 Erythrocyte distribution width (RBC) [Entitic vol] 43.5 fL 35.1-43.9 [facility] Work Phone: Erythrocyte distribution width (RBC) [Ratio] 11.9 % 11.6-14.6 [facility] Work Phone: Immature granulocytes/100 WBC (Bld) 0.300 % 0.0-0.9 [facility] Work Phone: Comment on above: IG% - Immature Granu locytes (promyelocytes, myelocytes and metamyelocytes) > 1% indicates that a LEFT SHIFT is Present. MCH (RBC) [Entitic mass] 32.5 pg 27.0-32.0 [facility] Work Phone: Nucleated RBC/100 WBC (Bld) [Ratio] 0 % 0-5 [facility] Work Phone: MCHC Auto (RBC) [Mass/Vol]on 08-14-2022 MCHC (RBC) [Mass/Vol] 33.1 g/dL 32-36 [facility] Work Phone: No Panel Informationon 08-14 Estimated GFR (MDRD) Amer 132 mL/min >60 [facility] Work Phone: Comment on above: GFR Calc Estimated GFR (MDRD) Non-Af Amer 109 mL/min >60 [facility] Work Phone: Comment on above: Non- GFR Calc Platelets bldon 08-14-2022 Platelets (Bld) [#/Vol] 323 10*3/uL 150-450 [facility] Work Phone: Serum or plasma C reactive p rotein measurement (mass/volume)on 08-14-2022 CRP [Mass/Vol] mg/L 0.0-3.0 [facility] Work Phone: Comment on above: C-Reactive Protein ( CRP) provides useful information for thediagnosis, therapy and monitoring of inflammatory processesand associated diseases. For the evaluation of Relative Riskfor Cardiovascular Disease, a High Sensitivity CRP (HSCRP)should be ordered. Serum or plasma albumin erin urement (mass/volume)on 08-14-2022 Albumin [Mass/Vol] 4.4 g/dL 3.2-5.0 [facility] Work Phone: Serum or plasma albumin/glob ulin mass ratioon 08-14-2022 Albumin/Globulin [Mass ratio] 1.3 {ratio} 0.9-2.4 [facility] Work Phone: Serum or plasma calcium erin urement (mass/volume)on 08-14-2022 Calcium [Mass/Vol] 9.4 mg/dL 8.5-10.1 [facility] Work Phone: Serum or plasma creatinine m easurement (mass/volume)on 08-14-2022 Creatinine [Mass/Vol] 0.59 mg/dL 0.55-1.02 [facility] Work Phone: Comment on above: The validity of the calculated GFR & GFRAA in patients over 70 years has not been determined. Clinical correlation is essential. Serum or plasma urea nitroge n measurement (mass/volume)on 08-14-2022 Urea nitrogen [Mass/Vol] 14 mg/dL 7-18 [facility] Work Phone: Thin prep Papanicolaou smear with manual screeningon 08-14-2022 Thin prep Papanicolaou smear with manual screening 28 U/L 15-37 [facility] Work Phone: Thin prep Papanicolaou smear with manual screening 4 5-15 [facility] Work Phone: Blood Glucose , Office ([phone])Ordered By: Johana Arnett on 01-04-2022 Glucose Glucometer (BldC) [Moles/Vol] 92 1 Normal [facility]; [facility] Work Phone: HgA1C , Office ([phone])Ordere d By: Johana Arnett on 01-04-2022 HbA1c (Bld) [Mass fraction] 5.2 % Normal 4.6 - 7.1 [facility]; [facility] Work Phone: CALCIFIDIOL ([id number]) VIT D 25 Ordered By: Wine Steward on 12-29-2021 25-hydroxyvitamin D [Mass/Vol] 75.7 ng/mL Normal 30.0-100.0 [facility]; [facility] Work Phone: CBC W/AUTO DIFF WBC ([id number])O rdered By: Wine Steward on 12-29-2021 Basophils (Bld) [#/Vol] 0.1 10*3/uL Normal 0.0-0.2 [facility]; [facility] Work Phone: Basophils/100 WBC (Bld) 1 % Normal [facility]; [facility] Work Phone: Eosinophils (Bld) [#/Vol] 0.2 10*3/uL Normal 0.0-0.4 [facility]; [facility] Work Phone: Eosinophils/100 WBC (Bld) 3 % Normal [facility]; [facility] Work Phone: Erythrocyte distribution width (RBC) [Ratio] 11.8 % Normal 11.7-15.4 [facility]; [facility] Work Phone: Hematocrit (Bld) [Volume fraction] 40.5 % Normal 34.0-46.6 [facility]; [facility] Work Phone: Hemoglobin (Bld) [Mass/Vol] 13.6 g/dL Normal 11.1-15.9 [facility]; [facility] Work Phone: Immature granulocytes (Bld) [#/Vol] 0.0 10*3/uL Normal 0.0-0.1 [facility]; [facility] Work Phone: Immature granulocytes/100 WBC (Bld) 0 % Normal [facility]; [facility] Work Phone: Lymphocytes (Bld) [#/Vol] 2.0 10*3/uL Normal 0.7-3.1 [facility]; [facility] Work Phone: Lymphocytes/100 WBC (Bld) 36 % Normal [facility]; [facility] Work Phone: MCH (RBC) [Entitic mass] 32.5 pg Normal 26.6-33.0 [facility]; [facility] Work Phone: MCHC (RBC) [Mass/Vol] 33.6 g/dL Normal 31.5-35.7 [facility]; [facility] Work Phone: MCV (RBC) [Entitic vol] 97 fL Normal 79-97 [facility]; [facility] Work Phone: Monocytes (Bld) [#/Vol] 0.5 10*3/uL Normal 0.1-0.9 [facility]; [facility] Work Phone: Monocytes/100 WBC (Bld) 10 % Normal [facility]; [facility] Work Phone: Neutrophils (Bld) [#/Vol] 2.7 10*3/uL Normal 1.4-7.0 [facility]; [facility] Work Phone: Neutrophils/100 WBC (Bld) 50 % Normal [facility]; [facility] Work Phone: Platelets (Bld) [#/Vol] 351 10*3/uL Normal 150-450 [facility]; [facility] Work Phone: RBC (Bld) [#/Vol] 4.18 10*6/uL Normal 3.77-5.28 Compr ehensive [facility]; [facility] Work Phone: WBC (Bld) [#/Vol] 5.4 10*3/uL Normal 3.4-10.8 Compre hensive [facility]; [facility] Work Phone: METABOLIC PANEL, COMPREHENSI VE ([id number])Ordered By: Wine Steward on 12-29-2021 Albumin [Mass/Vol] 4.7 g/dL Normal 3.8-4.8 [facility]; [facility] Work Phone: Albumin/Globulin [Mass ratio] 2.0 {ratio} Normal 1.2-2.2 [facility]; [facility] Work Phone: ALP [Catalytic activity/Vol] 53 U/L Normal 44-121 [facility]; [facility] Work Phone: ALT [Catalytic activity/Vol] 16 U/L Normal 0-32 [facility]; [facility] Work Phone: AST [Catalytic activity/Vol] 25 U/L Normal 0-40 [facility]; [facility] Work Phone: Bilirubin [Mass/Vol] 0.5 mg/dL Normal 0.0-1.2 [facility]; [facility] Work Phone: Calcium [Mass/Vol] 9.5 mg/dL Normal 8.7-10.3 [facility]; [facility] Work Phone: Chloride [Moles/Vol] 102 mmol/L Normal 96-106 [facility]; [facility] Work Phone: CO2 [Moles/Vol] 23 mmol/L Normal 20-29 [facility]; [facility] Work Phone: Creatinine [Mass/Vol] 0.61 mg/dL Normal 0.57-1.00 [facility]; [facility] Work Phone: Globulin (S) [Mass/Vol] 2.3 g/dL Normal 1.5-4.5 [facility]; [facility] Work Phone: Glucose [Mass/Vol] 93 mg/dL Normal 65-99 [facility]; [facility] Work Phone: Potassium [Moles/Vol] 4.4 mmol/L Normal 3.5-5.2 [facility]; [facility] Work Phone: Protein [Mass/Vol] 7.0 g/dL Normal 6.0-8.5 [facility]; [facility] Work Phone: Sodium [Moles/Vol] 141 mmol/L Normal 134-144 [facility]; [facility] Work Phone: Urea nitrogen [Mass/Vol] 17 mg/dL Normal 8-27 [facility]; [facility] Work Phone: Urea nitrogen/Creatinine [Mass ratio] 28 mg/mg Normal 12-28 [facility]; [facility] Work Phone: METABOLIC PANEL, COMPREHENSIVE ([id number]) 99 mL/min/1.73 Normal [facility]; [facility] Work Phone: MICROALBUMINOrdered By: Sy[employer] Deburrer on 12-29-2021 Albumin DL <= 20 mg/L (U) [Mass/Vol] mg/dL Normal Comprehensiv e [facility]; [facility] Work Phone: Albumin/Creatinine (U) [Mass ratio] <8 Normal 0-29 [facility]; [facility] Work Phone: Creatinine (U) [Mass/Vol] 37.4 mg/dL Normal [facility]; [facility] Work Phone: NMR Profile ([id number])Ordered B y: Wine Steward on 12-29-2021 Lipoprotein.alpha [Moles/Vol] 47.4 umol/L Normal [facility]; [facility] Work Phone: Lipoprotein.beta.sub particle [Entitic length] 21.4 nm Normal [facility]; [facility] Work Phone: Lipoprotein.beta.sub particle [Moles/Vol] 921 nmol/L Normal Comprehensi ve [facility]; [facility] Work Phone: Lipoprotein.beta.sub particle.small [Moles/Vol] 383 nmol/L Normal [facility]; [facility] Work Phone: NMR Profile (01223) 83 mg/dL Normal 0-99 [facility] Work Phone: NMR Profile (63251) 77 mg/dL Normal Compr ehensive [facility]; [facility] Work Phone: NMR Profile (85502) 68 mg/dL Normal 0-149 Compr ehens[facility]; [facility] Work Phone: NMR Profile (63812) 173 mg/dL Normal 100-199 Compr ehensive [facility]; [facility] Work Phone: TSH ([id number])Ordered By: SageQueste m [employer] Deburrer on 12-29-2021 TSH Qn 0.866 {uIU/mL} Normal 0.450-4.50 0 [facility]; [facility] Work Phone: URINALYSIS, W/ MICRO ([id number]) Ordered By: Wine Steward on 12-29-2021 Appearance (U) Clear Normal Comprehens [facility]; [facility] Work Phone: Bilirubin Ql (U) Negative Normal Comprehe nsive [facility]; [facility] Work Phone: Color (U) Yellow Normal [facility]; [facility] Work Phone: Glucose Ql (U) Negative Normal Comprehens [facility]; [facility] Work Phone: Hemoglobin Ql (U) Negative Normal Compreh ensive [facility]; [facility] Work Phone: Ketones Ql (U) Negative Normal Comprehens [facility]; [facility] Work Phone: Leukocyte esterase Test strip Ql (U) Negative Normal [facility]; [facility] Work Phone: Microscopic observation LM Nom (Urine sed) MICRON Normal [facility]; [facility] Work Phone: Microscopic observation LM Nom (Urine sed) See below: Normal [facility]; [facility] Work Phone: Nitrite Ql (U) Negative Normal Comprehens [facility]; [facility] Work Phone: pH (U) 7.0 [pH] Normal 5.0-7.5 [facility]; [facility] Work Phone: Protein Ql (U) Negative Normal Comprehens [facility]; [facility] Work Phone: Specific gravity (U) [Rel density] 1.011 1 Normal 1.005-1.03 0 [facility]; [facility] Work Phone: Urobilinogen (U) [Mass/Vol] 0.2 mg/dL Normal 0.2-1.0 [facility]; [facility] Work Phone: HEPATITIS C ANTIBODY (15754) Ordered By: Wine Steward on 04-01-2021 HCV Ab Signal/Cutoff IA [Rel units/Vol] {ratio} Normal 0.0-0.9 [facility]; [facility] Work Phone: Comment on above: Negative: < 0.8 Inde terminate: 0.8 - 0.9 Positive: > 0.9 . The CDC recommends that a positive HCV antibody result be followed up with a HCV Nucleic Acid Amplification test (421777). PATIENT NOT FASTINGP ERFORMED BY: [facility] [facility] [id number] CALCIFIDIOL (56682) VIT D 25 Ordered By: Wine Steward on 11-21-2019 25-Hydroxyvitamin D2+25-Hydroxyvitamin D3 [Mass/Vol] 37.5 ng/mL Normal 30.0-100.0 [facility] Work Phone: Comment on above: Vitamin D deficiency has been defined by the Ramer ofMedicine and an Endocrine Society practice guideline as alevel of serum 25-OH vitamin D less than 20 ng/mL (1,2).The Endocrine Society went on to further define vitamin Dinsufficiency as a level between 21 and 29 ng/mL (2).1. IOM ([place]amer of Medicine). 2010. Dietary reference intakes for calcium and D. [place]: The National Academies Press.2. Karla MF, Zoila [place], Sofy REYES, et al. Evaluation, treatment, and prevention of vitamin D deficiency: an Endocrine Society clinical practice guideline. JCEM. 2010; 96(7):1911-30. Test(s) 777209-FLQ-Y ; 365421-BFL-O; 650248-AFN-O; 931773-Qwzlhuysmuagm; 443888-Fwhvjiuiacx, Total; 153397-KIJ-S (Total);192323-Vbthy LDL-P; 160173-XSX Size; 585530-VG-CH Scorewas developed and its performance characteristics determinedby [employer]. It has not been cleared or approved by the Foodand Drug Administration.PATIENT WAS FASTINGPERFORMED BY: [employer] [address] [id number] BY: BarnebysSt. Mary's HospitalItyyko0121 [facility] [id number] CBC W/AUTO DIFF WBC ([id number])O rdered By: Wine Steward on 11-21-2019 Basophils (Bld) [#/Vol] 0.1 {x10E3/uL} Normal 0.0-0.2 [facility] Work Phone: Comment on above: Test(s) 311926-IQZ-C ; 026852-ZGM-D; 776160-RDG-Q; 857184-Xzavvuekgahyy; 604853-Brmfdsyxcab, Total; 625718-PZW-O (Total);752657-Fveco LDL-P; 813730-HFW Size; 615565-KW-RH Scorewas developed and its performance characteristics determinedby [employer]. It has not been cleared or approved by the Foodand Drug Administration.PATIENT WAS FASTINGPERFORMED BY: [employer] [address] [id number] BY: [employer] Ygzyco5787 [facility] [id number] Basophils (Bld) [#/Vol] 0.1 10*3/uL Normal 0.0-0.2 [facility]; [facility] Work Phone: Comment on above: Test(s) 210364-XLN-E ; 966877-BEE-T; 552061-PHL-Z; 517546-Onrtaqauwxlid; 768577-Vufrvsuksht, Total; 245250-LFK-O (Total);737712-Suzou LDL-P; 331573-XDO Size; 117920-AP-PK Scorewas developed and its performance characteristics determinedby [employer]. It has not been cleared or approved by the Foodand Drug Administration.PATIENT WAS FASTINGPERFORMED BY: [employer] [id number] BY: Barnebys Xryydq4216 [address] LookAcrossLifeBrite [facility] [id number] Basophils/100 WBC (Bld) 1 % Normal [facility] Work Phone: Comment on above: Test(s) 076740-NXC-S ; 781417-TCJ-C; 525523-JDO-Z; 651112-Xyphdadqilthl; 920134-Peajtsueoyy, Total; 421063-QUN-J (Total);158834-Anlmv LDL-P; 385830-RKM Size; 224204-PT-AI Scorewas developed and its performance characteristics determinedby [employer]. It has not been cleared or approved by the Foodand Drug Administration.PATIENT WAS FASTINGPERFORMED BY: [facility] [address] [id number] BY: [employer]70 [facility] [id number] Eosinophils (Bld) [#/Vol] 0.2 {x10E3/uL} Normal 0.0-0.4 [facility] Work Phone: Comment on above: Test(s) 200129-XTS-N ; 611945-RBA-Q; 043218-PBT-L; 490990-Ihcpmbgfucynt; 810851-Iyryiavfjps, Total; 317872-LYD-D (Total);737880-Umegi LDL-P; 564808-TIJ Size; 025330-UG-YT Scorewas developed and its performance characteristics determinedby [employer]. It has not been cleared or approved by the Foodand Drug Administration.PATIENT WAS FASTINGPERFORMED BY: [employer] [id number] BY: BitWineSt. Mary's HospitalUnbaky7628 [facility] [id number] Eosinophils (Bld) [#/Vol] 0.2 10*3/uL Normal 0.0-0.4 [facility]; [facility] Work Phone: Comment on above: Test(s) 028069-PKL-C ; 447025-HPD-D; 796132-NYM-Z; 423670-Oltwovlhujbgv; 913344-Zjgfcnznzzk, Total; 529806-ZLP-U (Total);174114-Wwuer LDL-P; 598815-TIT Size; 091598-PG-DA Scorewas developed and its performance characteristics determinedby [employer]. It has not been cleared or approved by the Foodand Drug Administration.PATIENT WAS FASTINGPERFORMED BY: [facility] [address] [id number] BY: [employer]70 [facility] [id number] Eosinophils/100 WBC (Bld) 2 % Normal [facility] Work Phone: Comment on above: Test(s) 793073-ZRC-F ; 543749-AVO-Q; 447816-BKW-A; 499722-Chpidszdlktdq; 385145-Ajeiytmfyok, Total; 794587-ZDQ-C (Total);567210-Dncne LDL-P; 913887-FWV Size; 489665-DO-LB Scorewas developed and its performance characteristics determinedby [employer]. It has not been cleared or approved by the Foodand Drug Administration.PATIENT WAS FASTINGPERFORMED BY: [facility] [address] [id number] BY: [employer]6[address] [facility] [id number] Erythrocyte distribution width (RBC) [Ratio] 11.7 % Normal 11.7-15.4 [facility] Work Phone: Comment on above: Test(s) 001611-DXG-C ; 091772-BJU-Y; 361310-FKB-X; 962490-Rejlpvqifyohm; 259860-Ggpfhxqovko, Total; 383336-CWN-N (Total);473942-Vnzrd LDL-P; 969729-NKQ Size; 019632-XN-NX Scorewas developed and its performance characteristics determinedby [employer]. It has not been cleared or approved by the Foodand Drug Administration.PATIENT WAS FASTINGPERFORMED BY: [employer] [id number] BY: BarnebysLea Regional Medical CenterCfmjce3293 [facility] [id number] Hematocrit (Bld) [Volume fraction] 45.0 % Normal 34.0-46.6 [facility] Work Phone: Comment on above: Test(s) 332965-RPE-T ; 072927-GAT-X; 124977-IOM-K; 580496-Ipnrwvvphenzu; 298733-Qslvmcfzjtp, Total; 867424-SMA-A (Total);786219-Oojtp LDL-P; 301071-OIQ Size; 522606-MK-AL Scorewas developed and its performance characteristics determinedby [employer]. It has not been cleared or approved by the Foodand Drug Administration.PATIENT WAS FASTINGPERFORMED BY: [facility] [address] [id number] BY: SnapMyAd70 [facility] [id number] Hemoglobin (Bld) [Mass/Vol] 15.3 g/dL Normal 11.1-15.9 [facility] Work Phone: Comment on above: Test(s) 589644-WSS-W ; 352997-SSZ-P; 916711-TJK-L; 891556-Yrsqhapcsdhlc; 266143-Dfbxqqhiypf, Total; 784563-KCT-E (Total);534336-Lvyku LDL-P; 464985-QXY Size; 643410-SD-RK Scorewas developed and its performance characteristics determinedby [employer]. It has not been cleared or approved by the Foodand Drug Administration.PATIENT WAS FASTINGPERFORMED BY: Barnebys[address] [id number] BY: BitWineSt. Mary's HospitalZjpyhr7670 [facility] [id number] Immature granulocytes (Bld) [#/Vol] 0.0 {x10E3/uL} Normal 0.0-0.1 [facility] Work Phone: Comment on above: Test(s) 437145-KFX-O ; 555079-AKY-B; 653444-BHO-B; 108244-Jrbayzgsxbzis; 467180-Kjmgorzteib, Total; 230847-COM-C (Total);959912-Fdynw LDL-P; 775821-QLD Size; 649049-FF-BK Scorewas developed and its performance characteristics determinedby [employer]. It has not been cleared or approved by the Foodand Drug Administration.PATIENT WAS FASTINGPERFORMED BY: [facility] [address] [id number] BY: Deepclass Ezlvcn5381 [facility] [id number] Immature granulocytes (Bld) [#/Vol] 0.0 10*3/uL Normal 0.0-0.1 [facility]; [facility] Work Phone: Comment on above: Test(s) 824233-GKV-Y ; 331014-IDE-P; 557137-HCG-K; 462718-Bxrbmrkipeiuz; 062880-Xzsnknxuavb, Total; 211103-NFO-E (Total);875979-Lsdxm LDL-P; 914816-CVS Size; 909869-XM-FI Scorewas developed and its performance characteristics determinedby [employer]. It has not been cleared or approved by the Foodand Drug Administration.PATIENT WAS FASTINGPERFORMED BY: [facility] [address] [id number] BY: [place] [employer]6370 [facility] [id number] Immature granulocytes/100 WBC (Bld) 0 % Normal [facility] Work Phone: Comment on above: Test(s) 427493-HUT-Q ; 525715-LWT-T; 994370-NOU-A; 295174-Xiwznfkwezhiq; 880450-Npymqehkmzg, Total; 094824-BJB-L (Total);717191-Ndjcr LDL-P; 869677-EYP Size; 735497-ES-MJ Scorewas developed and its performance characteristics determinedby [employer]. It has not been cleared or approved by the Foodand Drug Administration.PATIENT WAS FASTINGPERFORMED BY: BN LabCoRebecca [place] [address] [facility] [id number] BY: BarnebysLea Regional Medical CenterSqzxfu3294 [facility] [id number] Lymphocytes (Bld) [#/Vol] 2.8 {x10E3/uL} Normal 0.7-3.1 [facility] Work Phone: Comment on above: Test(s) 383508-NAV-L ; 743946-JLS-Q; 791464-HOK-D; 682490-Btrnvqkgvyliu; 374374-Lyrfdwzrayd, Total; 056555-FXZ-W (Total);292962-Joeiq LDL-P; 820337-VVQ Size; 019680-RI-FK Scorewas developed and its performance characteristics determinedby [employer]. It has not been cleared or approved by the Foodand Drug Administration.PATIENT WAS FASTINGPERFORMED BY: [facility] [address] [id number] BY: [place] [employer]6370 [facility] [id number] Lymphocytes (Bld) [#/Vol] 2.8 10*3/uL Normal 0.7-3.1 [facility]; [facility] Work Phone: Comment on above: Test(s) 279011-DLG-G ; 038605-QGY-M; 653147-BLP-A; 357228-Ttllejjqguchd; 077037-Mkcywihzmfx, Total; 855346-YRP-K (Total);311361-Cihwp LDL-P; 824569-XBT Size; 473836-GY-CT Scorewas developed and its performance characteristics determinedby [employer]. It has not been cleared or approved by the Foodand Drug Administration.PATIENT WAS FASTINGPERFORMED BY: [facility] [address] [id number] BY: BarnebysSt. Mary's HospitalCcbzhz7409 [facility] [id number] Lymphocytes/100 WBC (Bld) 34 % Normal [facility] Work Phone: Comment on above: Test(s) 266972-GCI-M ; 560739-ZCX-G; 142190-IZZ-S; 575309-Sqsumbeohffdk; 984917-Qkjcgunpvwg, Total; 429954-NTI-B (Total);768876-Pkbyf LDL-P; 125642-PSC Size; 145102-JF-RO Scorewas developed and its performance characteristics determinedby [employer]. It has not been cleared or approved by the Foodand Drug Administration.PATIENT WAS FASTINGPERFORMED BY: Barnebys[address] [id number] BY: BarnebysAbigail V[place] 1876270 [facility] [id number] MCH (RBC) [Entitic mass] 33.0 pg Normal 26.6-33.0 [facility] Work Phone: Comment on above: Test(s) 115588-OAV-A ; 068548-ZFN-B; 394060-JUT-T; 711438-Jxelyqmjdfjrz; 466007-Muvdrwnybyy, Total; 764422-NVU-P (Total);449248-Lqbza LDL-P; 674879-QYE Size; 808728-LP-SH Scorewas developed and its performance characteristics determinedby [employer]. It has not been cleared or approved by the Foodand Drug Administration.PATIENT WAS FASTINGPERFORMED BY: Barnebys[address] [id number] BY: BarnebysSt. Mary's HospitalOhuuzh0853 [facility] [id number] MCHC (RBC) [Mass/Vol] 34.0 g/dL Normal 31.5-35.7 [facility] Work Phone: Comment on above: Test(s) 404306-IAI-L ; 460076-MQZ-V; 318306-MTL-V; 231962-Jneotafjfsjmp; 198303-Mjthdwwujtt, Total; 112593-UWI-M (Total);097334-Bhvmd LDL-P; 479419-SKJ Size; 103420-TH-GK Scorewas developed and its performance characteristics determinedby [employer]. It has not been cleared or approved by the Foodand Drug Administration.PATIENT WAS FASTINGPERFORMED BY: Mobi-Motorp Ruvtcmupts6080 [facility] [id number] BY: BitWine Cvstpi0255 [facility] [id number] MCV (RBC) [Entitic vol] 97 fL Normal 79-97 [facility] Work Phone: Comment on above: Test(s) 166287-URM-I ; 065954-XIM-W; 936883-HXH-T; 915616-Smeaiabelbceh; 160921-Uzoszthfbbo, Total; 572022-TCA-B (Total);864437-Soukj LDL-P; 351186-KTZ Size; 947604-MU-GE Scorewas developed and its performance characteristics determinedby [employer]. It has not been cleared or approved by the Foodand Drug Administration.PATIENT WAS FASTINGPERFORMED BY: [facility] [address] [id number] BY: [employer]6370 [place] LookAcrossLifeBrite [facility] [id number] Monocytes (Bld) [#/Vol] 0.6 {x10E3/uL} Normal 0.1-0.9 [facility] Work Phone: Comment on above: Test(s) 987080-VDU-R ; 214345-CVY-S; 209198-DVX-L; 478495-Kljyztykgehis; 499333-Paduzzpbsdq, Total; 369690-ELZ-X (Total);110024-Smafz LDL-P; 562371-XZV Size; 117784-RW-QP Scorewas developed and its performance characteristics determinedby [employer]. It has not been cleared or approved by the Foodand Drug Administration.PATIENT WAS FASTINGPERFORMED BY: Mobi-Moto[address] [id number] BY: BitWineSt. Mary's HospitalEsdgwx6531 [facility] [id number] Monocytes (Bld) [#/Vol] 0.6 10*3/uL Normal 0.1-0.9 [facility]; [facility] Work Phone: Comment on above: Test(s) 981433-ZOK-P ; 648516-ZUH-X; 374542-JXF-O; 260046-Jswfgxgfvcapk; 674274-Zigcbiywfvy, Total; 538756-PUB-W (Total);091238-Kvgwt LDL-P; 498149-LIB Size; 507958-FV-GO Scorewas developed and its performance characteristics determinedby [employer]. It has not been cleared or approved by the Foodand Drug Administration.PATIENT WAS FASTINGPERFORMED BY: [facility] [address] [id number] BY: Deepclass Qvolzo8132 [facility] [id number] Monocytes/100 WBC (Bld) 7 % Normal [facility] Work Phone: Comment on above: Test(s) 449891-ZCV-O ; 764681-BJV-D; 561580-KUU-V; 835210-Vuzfqqtovnpyt; 654734-Yrfhnsmqioz, Total; 121550-HIP-S (Total);617551-Qyskk LDL-P; 413121-FJB Size; 305038-KZ-UG Scorewas developed and its performance characteristics determinedby [employer]. It has not been cleared or approved by the Foodand Drug Administration.PATIENT WAS FASTINGPERFORMED BY: [facility] [address] [id number] BY: Deepclass Egsilq4432 [facility] [id number] Neutrophils (Bld) [#/Vol] 4.6 {x10E3/uL} Normal 1.4-7.0 [facility] Work Phone: Comment on above: Test(s) 394582-YDC-I ; 697839-QPI-I; 234247-NCT-I; 201104-Qqfibheqjadnr; 633650-Gupnaguemix, Total; 629372-MOF-B (Total);224354-Biyjf LDL-P; 013117-QQK Size; 551940-EN-QN Scorewas developed and its performance characteristics determinedby [employer]. It has not been cleared or approved by the Foodand Drug Administration.PATIENT WAS FASTINGPERFORMED BY: BN LabCo[address] [id number] BY: BarnebysSt. Mary's HospitalAqgeud5107 [facility] [id number] Neutrophils (Bld) [#/Vol] 4.6 10*3/uL Normal 1.4-7.0 [facility]; [facility] Work Phone: Comment on above: Test(s) 823011-OEZ-M ; 144951-RCF-H; 743519-CSL-O; 841494-Rbzxhuujihadv; 741056-Yfdvfnqkigi, Total; 506170-YDX-K (Total);248045-Uablb LDL-P; 975014-ZYA Size; 825071-NB-SQ Scorewas developed and its performance characteristics determinedby [employer]. It has not been cleared or approved by the Foodand Drug Administration.PATIENT WAS FASTINGPERFORMED BY: [facility] [address] [id number] BY: [employer]6370 [facility] [id number] Neutrophils/100 WBC (Bld) 56 % Normal [facility] Work Phone: Comment on above: Test(s) 655599-KKO-U ; 069363-ZIV-I; 394699-KHA-I; 870368-Nvvvwjpojvied; 220613-Dvcdunxkoop, Total; 395910-JAY-B (Total);401819-Xkxvo LDL-P; 928176-DDX Size; 208248-LO-NS Scorewas developed and its performance characteristics determinedby [employer]. It has not been cleared or approved by the Foodand Drug Administration.PATIENT WAS FASTINGPERFORMED BY: [facility] [address] [id number] BY: BitWineSt. Mary's HospitalDguzdb5057 [facility] [id number] Platelets (Bld) [#/Vol] 394 {x10E3/uL} Normal 150-450 [facility] Work Phone: Comment on above: Test(s) 038095-YZW-V ; 944170-SCD-X; 427599-LJR-U; 915533-Mqovhuwsjvqrq; 292458-Gqaxlzzghup, Total; 786482-LYZ-U (Total);056418-Qbwps LDL-P; 256300-DNB Size; 923014-FN-LK Scorewas developed and its performance characteristics determinedby [employer]. It has not been cleared or approved by the Foodand Drug Administration.PATIENT WAS FASTINGPERFORMED BY: [employer] [id number] BY: SnapMyAd70 [facility] [id number] Platelets (Bld) [#/Vol] 394 10*3/uL Normal 150-450 [facility]; [facility] Internal [facility] Work Phone: Comment on above: Test(s) 860017-NVX-P ; 113809-UYN-R; 766449-QTY-X; 831334-Qmwrnnmfbrdmp; 291282-Vtttfjeeyst, Total; 401177-TPW-X (Total);304696-Odgcp LDL-P; 521736-EDT Size; 851340-KI-KX Scorewas developed and its performance characteristics determinedby [employer]. It has not been cleared or approved by the Foodand Drug Administration.PATIENT WAS FASTINGPERFORMED BY: [facility] [address] [id number] BY: Deepclass Xszixt9066 [facility] [id number] RBC (Bld) [#/Vol] 4.63 {x10E6/uL} Normal 3.77-5.28 [facility] Internal Medicine Work Phone: Comment on above: Test(s) 880773-HWP-M ; 872403-EQA-L; 390638-HNJ-R; 037764-Kkmhgtegxakkc; 065269-Bcyazvzjpew, Total; 435644-KHM-O (Total);443453-Ecsnk LDL-P; 650232-AAO Size; 079283-CG-BG Scorewas developed and its performance characteristics determinedby [employer]. It has not been cleared or approved by the Foodand Drug Administration.PATIENT WAS FASTINGPERFORMED BY: Dropico Mediaton1447 [facility] [id number] BY: BitWine Icmzit5976 [facility] [id number] RBC (Bld) [#/Vol] 4.63 10*6/uL Normal 3.77-5.28 [facility]; [facility] Work Phone: Comment on above: Test(s) 690291-KCA-Z ; 724485-GVW-U; 996084-URL-D; 549276-Bmxteqpqccjwd; 994160-Pocczawmwjr, Total; 402314-OCH-J (Total);212733-Sbstf LDL-P; 483505-NHR Size; 246170-FQ-PS Scorewas developed and its performance characteristics determinedby [employer]. It has not been cleared or approved by the Foodand Drug Administration.PATIENT WAS FASTINGPERFORMED BY: [employer] [id number] BY: [employer]6370 [facility] [id number] WBC (Bld) [#/Vol] 8.2 {x10E3/uL} Normal 3.4-10.8 [facility] Internal Medicine Work Phone: Comment on above: Test(s) 246949-VLH-Y ; 198748-FKA-L; 959817-DSN-L; 341933-Jhkhljslbcdck; 557875-Mkwpnfuttmr, Total; 131304-RFJ-D (Total);713611-Gldps LDL-P; 463592-TWG Size; 063609-XD-SS Scorewas developed and its performance characteristics determinedby [employer]. It has not been cleared or approved by the Foodand Drug Administration.PATIENT WAS FASTINGPERFORMED BY: [facility] [address] [id number] BY: BitWine Zvtopt1061 [facility] [id number] WBC (Bld) [#/Vol] 8.2 10*3/uL Normal 3.4-10.8 [facility]; [facility] Work Phone: Comment on above: Test(s) 703246-IBB-W ; 873462-EZI-R; 854702-NBB-E; 569513-Xlwvfijtinxfp; 023391-Lhbkbkotaug, Total; 445981-FLI-P (Total);240517-Zxdrp LDL-P; 539191-IPP Size; 135260-XS-LN Scorewas developed and its performance characteristics determinedby [employer]. It has not been cleared or approved by the Foodand Drug Administration.PATIENT WAS FASTINGPERFORMED BY: [employer] [id number] BY: SnapMyAd70 [facility]ECU [facility] [id number] METABOLIC PANEL, COMPREHENSI VE (71614)Ordered By: Wine Steward on 11-21-2019 Albumin [Mass/Vol] 4.9 g/dL Abnormal 3.8-4.8 [facility] Internal Medicine Work Phone: Comment on above: Test(s) 200314-MEJ-X ; 452182-MUE-G; 030707-KET-O; 758783-Lnrwpicpppobs; 865572-Lvkiixjiuiu, Total; 782514-HVP-I (Total);010023-Klbbo LDL-P; 841356-GXZ Size; 040233-FG-CU Scorewas developed and its performance characteristics determinedby [employer]. It has not been cleared or approved by the Foodand Drug Administration.PATIENT WAS FASTINGPERFORMED BY: [employer] [id number] BY: [employer]6370 [facility] [id number] Albumin/Globulin [Mass ratio] 2.0 {ratio} Normal 1.2-2.2 [facility] Internal Medicine Work Phone: Comment on above: Test(s) 069731-JQC-X ; 973421-QJU-X; 989255-RBA-V; 832444-Feybgafbxmtwn; 208063-Tndxuzfszua, Total; 961027-PZI-H (Total);759913-Jnojj LDL-P; 229194-QIL Size; 185509-RR-XU Scorewas developed and its performance characteristics determinedby [employer]. It has not been cleared or approved by the Foodand Drug Administration.PATIENT WAS FASTINGPERFORMED BY: Barnebys[address] [id number] BY: BarnebysLea Regional Medical CenterHbsbtx9830 [facility] [id number] ALP [Catalytic activity/Vol] 70 [iU]/L Normal 39-117 [facility] Work Phone: Comment on above: Test(s) 300904-HKP-F ; 594600-JDI-D; 963282-GNP-S; 628074-Xbgvyitqxowff; 539152-Mkbhtgpmmxb, Total; 768170-QYU-F (Total);989506-Gzcns LDL-P; 756034-FXT Size; 288521-FQ-JG Scorewas developed and its performance characteristics determinedby [employer]. It has not been cleared or approved by the Foodand Drug Administration.PATIENT WAS FASTINGPERFORMED BY: Barnebys[address] [id number] BY: Barnebys Uwlbtp3000 [facility] [id number] ALP [Catalytic activity/Vol] 70 U/L Normal 39-117 [facility]; [facility] Work Phone: Comment on above: Test(s) 841477-FFK-Z ; 750869-QMO-O; 943278-YJS-T; 168810-Mqxrapzibvbnx; 016603-Utmodrefqsa, Total; 561437-NVW-O (Total);655326-Rwvkw LDL-P; 214298-ONX Size; 653456-AJ-ZK Scorewas developed and its performance characteristics determinedby [employer]. It has not been cleared or approved by the Foodand Drug Administration.PATIENT WAS FASTINGPERFORMED BY: Barnebys[address] [id number] BY: BarnebysSt. Mary's HospitalEsalki1318 [facility] [id number] ALT [Catalytic activity/Vol] 19 [iU]/L Normal 0-32 [facility] Work Phone: Comment on above: Test(s) 312205-XBO-H ; 244804-VZJ-V; 737982-JAL-P; 299409-Wazpinaacxocf; 634807-Iyotxfjgkqb, Total; 694843-WHM-P (Total);804442-Brzqr LDL-P; 627578-FGX Size; 054591-DQ-ER Scorewas developed and its performance characteristics determinedby [employer]. It has not been cleared or approved by the Foodand Drug Administration.PATIENT WAS FASTINGPERFORMED BY: [facility] [address] [id number] BY: SnapMyAd70 TIFFS TREATS HOLDINGSLifeBrite [facility] [id number] ALT [Catalytic activity/Vol] 19 U/L Normal 0-32 [facility]; [facility] Work Phone: Comment on above: Test(s) 945211-PDF-S ; 869497-AJY-U; 400410-DQV-H; 684988-Ebyqxjaipjhph; 145190-Lwbahhotfse, Total; 473432-NQQ-K (Total);869770-Emtju LDL-P; 887206-OFZ Size; 642831-FW-ND Scorewas developed and its performance characteristics determinedby [employer]. It has not been cleared or approved by the Foodand Drug Administration.PATIENT WAS FASTINGPERFORMED BY: [employer] [address] [id number] BY: [employer]6370 [facility] [id number] AST [Catalytic activity/Vol] 25 [iU]/L Normal 0-40 [facility] Work Phone: Comment on above: Test(s) 543788-CHJ-C ; 540542-STI-D; 659471-MTL-A; 489256-Ulbweeprahfdn; 178328-Rcbhmbzlmcz, Total; 758122-QKI-G (Total);976865-Mrptm LDL-P; 069005-WAL Size; 300519-RU-WU Scorewas developed and its performance characteristics determinedby [employer]. It has not been cleared or approved by the Foodand Drug Administration.PATIENT WAS FASTINGPERFORMED BY: [employer] [id number] BY: Barnebys Juoijh5144 [facility]EC[facility] [id number] AST [Catalytic activity/Vol] 25 U/L Normal 0-40 [facility]; [facility] Work Phone: Comment on above: Test(s) 057241-LJR-K ; 492175-APU-J; 762100-BGW-E; 179767-Nkciinuppexee; 934732-Mlubwopaflu, Total; 020096-OAP-V (Total);302127-Bzbvr LDL-P; 987606-JHO Size; 682914-JO-CB Scorewas developed and its performance characteristics determinedby [employer]. It has not been cleared or approved by the Foodand Drug Administration.PATIENT WAS FASTINGPERFORMED BY: [employer] [id number] BY: [place] [employer]6370 [place] LookAcrossLifeBrite [facility] [id number] Bilirubin [Mass/Vol] 0.4 mg/dL Normal 0.0-1.2 [facility] Internal Medicine Work Phone: Comment on above: Test(s) 992330-EGX-O ; 040074-ECO-H; 806128-UJT-O; 082849-Wstusymrhtjjp; 617645-Yyyoxwoizjt, Total; 809948-KAQ-I (Total);098741-Mmslb LDL-P; 621235-XVW Size; 265213-ZT-TO Scorewas developed and its performance characteristics determinedby [employer]. It has not been cleared or approved by the Foodand Drug Administration.PATIENT WAS FASTINGPERFORMED BY: [employer] [id number] BY: BitWine Qghmmh0119 [facility] [id number] Calcium [Mass/Vol] 10.2 mg/dL Normal 8.7-10.3 [facility] Internal Medicine Work Phone: Comment on above: Test(s) 660304-KKE-H ; 873038-ZPA-M; 190376-LSF-M; 390018-Dyvfaqsbtzguk; 151023-Seabgarhpix, Total; 036815-BYS-O (Total);086246-Xvvcj LDL-P; 255931-PNK Size; 997092-WB-GA Scorewas developed and its performance characteristics determinedby [employer]. It has not been cleared or approved by the Foodand Drug Administration.PATIENT WAS FASTINGPERFORMED BY: [facility] [address] [id number] BY: Deepclass Wzzdct4777 [facility] [id number] Chloride [Moles/Vol] 100 mmol/L Normal 96-106 [facility] Internal Medicine Work Phone: Comment on above: Test(s) 252004-TPR-V ; 381558-TWF-Z; 211326-YDA-N; 946258-Pcowayzsuidwf; 894990-Gjgrixdpxpk, Total; 699732-HDV-Y (Total);516947-Llqkr LDL-P; 370175-SHH Size; 241755-PM-ZH Scorewas developed and its performance characteristics determinedby [employer]. It has not been cleared or approved by the Foodand Drug Administration.PATIENT WAS FASTINGPERFORMED BY: [facility] [address] [id number] BY: Deepclass Ctbryb6661 [facility] [id number] CO2 [Moles/Vol] 20 mmol/L Normal 20-29 [facility] Internal Medicine Work Phone: Comment on above: Test(s) 214026-YZA-N ; 477729-NCP-V; 534332-LGN-S; 006194-Lwhuroyvhamlj; 983069-Chewboncqum, Total; 244031-NSK-H (Total);315256-Yiefr LDL-P; 755392-GOK Size; 423257-XI-AA Scorewas developed and its performance characteristics determinedby [employer]. It has not been cleared or approved by the Foodand Drug Administration.PATIENT WAS FASTINGPERFORMED BY: [facility] [address] [id number] BY: Barnebys Coknte0036 [facility] [id number] Creatinine [Mass/Vol] 0.74 mg/dL Normal 0.57-1.00 [facility] Work Phone: Comment on above: Test(s) 914836-FZH-U ; 348347-XTW-S; 993423-YUA-Q; 138253-Klllaqzltoodu; 638208-Kazetnwkzwd, Total; 722847-ESS-T (Total);990541-Nshdm LDL-P; 597204-VEV Size; 271345-DJ-YW Scorewas developed and its performance characteristics determinedby [employer]. It has not been cleared or approved by the Foodand Drug Administration.PATIENT WAS FASTINGPERFORMED BY: [facility] [address] [id number] BY: SnapMyAd70 [facility] [id number] GFR/1.73 sq M predicted among blacks CKD-EPI (S/P/Bld) [Vol rate/Area] 99 mL/min/1.73 Normal [facility] Work Phone: Comment on above: Test(s) 105363-XQO-N ; 842203-CHB-K; 911440-LPD-K; 822742-Swvfjmsatghbi; 367781-Qldxrdqthku, Total; 104756-SYR-A (Total);239594-Hcmgo LDL-P; 839712-WLI Size; 417545-JD-TP Scorewas developed and its performance characteristics determinedby [employer]. It has not been cleared or approved by the Foodand Drug Administration.PATIENT WAS FASTINGPERFORMED BY: [facility] [address] [id number] BY: Deepclass Anfrdc7066 [facility] [id number] GFR/1.73 sq M predicted among non-blacks CKD-EPI (S/P/Bld) [Vol rate/Area] 86 mL/min/1.73 Normal [facility] Work Phone: Comment on above: Test(s) 217133-KLW-Q ; 159286-ITU-W; 344603-SEX-I; 688997-Ayxtncfmlspnn; 372383-Rtpnxcntgbk, Total; 586420-PBT-H (Total);921856-Uxkzw LDL-P; 099306-XJJ Size; 750010-UY-RF Scorewas developed and its performance characteristics determinedby [employer]. It has not been cleared or approved by the Foodand Drug Administration.PATIENT WAS FASTINGPERFORMED BY: [facility] [address] [id number] BY: SnapMyAd70 [facility] [id number] Globulin (S) [Mass/Vol] 2.5 g/dL Normal 1.5-4.5 [facility] Internal Medicine Work Phone: Comment on above: Test(s) 642454-LOM-Z ; 135332-WJQ-M; 969548-NXD-X; 716152-Gkctgjhoqtoxq; 909746-Aumzkzsbmzr, Total; 034232-BAV-R (Total);445649-Rprip LDL-P; 469005-OLS Size; 555210-YI-GZ Scorewas developed and its performance characteristics determinedby [employer]. It has not been cleared or approved by the Foodand Drug Administration.PATIENT WAS FASTINGPERFORMED BY: [facility] [address] [id number] BY: [employer] LookAcrossLifeB[facility] [id number] Glucose [Mass/Vol] 88 mg/dL Normal 65-99 [facility] Internal Medicine Work Phone: Comment on above: Test(s) 092192-BJI-D ; 378847-BBB-K; 489958-LSJ-D; 208184-Fbgfoafsjrwvl; 390836-Ofyvbeycgvq, Total; 832268-NMO-R (Total);534260-Zvngc LDL-P; 065916-JCT Size; 115350-BU-ZJ Scorewas developed and its performance characteristics determinedby [employer]. It has not been cleared or approved by the Foodand Drug Administration.PATIENT WAS FASTINGPERFORMED BY: Barnebys[address] [id number] BY: BarnebysLea Regional Medical CenterMdgowj0678 [place] LookAcrossLifeBrite [facility] [id number] Potassium [Moles/Vol] 4.5 mmol/L Normal 3.5-5.2 [facility] Internal Medicine Work Phone: Comment on above: Test(s) 126219-YNH-K ; 545684-OSE-A; 339112-RPR-K; 897563-Egehnfetqmomv; 807985-Lorezciozgc, Total; 538154-TYD-P (Total);580886-Svazl LDL-P; 186066-JZC Size; 987482-RA-NW Scorewas developed and its performance characteristics determinedby [employer]. It has not been cleared or approved by the Foodand Drug Administration.PATIENT WAS FASTINGPERFORMED BY: [employer] [id number] BY: BarnebysLea Regional Medical CenterWdxkqj0050 [facility] [id number] Protein [Mass/Vol] 7.4 g/dL Normal 6.0-8.5 [facility] Internal Medicine Work Phone: Comment on above: Test(s) 274003-TAF-R ; 625395-FDZ-V; 140367-VBH-W; 117935-Nslgvjhyqetgs; 166932-Wnmtllorhei, Total; 189888-OBN-P (Total);560178-Mpbrn LDL-P; 518798-TEE Size; 307712-YX-UG Scorewas developed and its performance characteristics determinedby [employer]. It has not been cleared or approved by the Foodand Drug Administration.PATIENT WAS FASTINGPERFORMED BY: Barnebys[address] [id number] BY: BarnebysLea Regional Medical CenterAkbmmt6139 [facility] [id number] Sodium [Moles/Vol] 142 mmol/L Normal 134-144 [facility] Internal Medicine Work Phone: Comment on above: Test(s) 796754-PXC-I ; 973128-FPR-I; 005801-BBI-S; 962257-Scctapgmismgc; 062476-Mhsvylzivpa, Total; 021185-ANQ-X (Total);180588-Ffxfu LDL-P; 663258-NWF Size; 144827-BB-XR Scorewas developed and its performance characteristics determinedby [employer]. It has not been cleared or approved by the Foodand Drug Administration.PATIENT WAS FASTINGPERFORMED BY: [facility] [address] [id number] BY: [employer] Umfhns7612 [facility] [id number] Urea nitrogen [Mass/Vol] 16 mg/dL Normal 8 [facility] Work Phone: Comment on above: Test(s) 370808-HVV-K ; 004007-JHU-X; 181014-LGG-O; 379276-Arbzuqxzqhbzx; 151923-Xrspvvmedjk, Total; 895471-SAC-P (Total);391388-Djncr LDL-P; 729959-NFY Size; 561199-UW-NG Scorewas developed and its performance characteristics determinedby [employer]. It has not been cleared or approved by the Foodand Drug Administration.PATIENT WAS FASTINGPERFORMED BY: [facility] [address] [id number] BY: [employer] Hsktcf4896 [facility] [id number] Urea nitrogen/Creatinine [Mass ratio] 22 mg/mg Normal 12 [facility] Work Phone: Comment on above: Test(s) 864946-CGQ-I ; 949725-IVL-Z; 432417-WJN-K; 728816-Gudngjwskjeov; 341769-Opeefqirdrt, Total; 655999-OQW-Z (Total);493326-Pnrey LDL-P; 263152-HUX Size; 374460-DN-XV Scorewas developed and its performance characteristics determinedby [employer]. It has not been cleared or approved by the Foodand Drug Administration.PATIENT WAS FASTINGPERFORMED BY: [employer] [id number] BY: [employer]70 [facility] [id number] MICROALBUMINOrdered By: Syst em [employer] Deburrer on 11-21-2019 Albumin DL <= 20 mg/L (U) [Mass/Vol] mg/dL Normal Comprehens[facility] e Internal Medicine Work Phone: Comment on above: Test(s) 694177-FAW-J ; 038177-YTF-Y; 769723-SXT-T; 611987-Pwtisdrldmlub; 720085-Zsedrskbvni, Total; 393489-BLX-R (Total);469844-Ncfpm LDL-P; 698202-RDE Size; 510443-IO-BX Scorewas developed and its performance characteristics determinedby [employer]. It has not been cleared or approved by the Foodand Drug Administration.PATIENT WAS FASTINGPERFORMED BY: [employer] [id number] BY: [employer]6370 [facility] [id number] Albumin DL <= 20 mg/L (U) [Mass/Vol] mg/dL Normal Comprehens[facility] e [facility]; [facility] Work Phone: Comment on above: Test(s) 714902-REG-L ; 275235-VEM-M; 428340-VSX-Y; 977223-Jhzpzxeqebbwj; 506522-Wciytkvmydu, Total; 494370-YGC-F (Total);200757-Iragq LDL-P; 048792-QDM Size; 949851-HV-KC Scorewas developed and its performance characteristics determinedby [employer]. It has not been cleared or approved by the Foodand Drug Administration.PATIENT WAS FASTINGPERFORMED BY: [employer] [id number] BY: [employer] Vzljdf0013 [facility] [id number] Albumin/Creatinine (U) [Mass ratio] <4 Normal 0-29 [facility] Work Phone: Comment on above: Normal: 0 - 29 Moder ately increased: 30 - 300 Severely increased: >300 Please note reference interval change Test(s) 630925-GIL-T ; 177019-DGT-D; 422936-FSQ-Q; 643024-Xjcnovfviawuz; 067687-Bvljuurvdad, Total; 052488-XND-D (Total);474509-Dnkxu LDL-P; 021881-CHJ Size; 105396-MB-BD Scorewas developed and its performance characteristics determinedby [employer]. It has not been cleared or approved by the FoodOR Productivity Drug Administration.PATIENT WAS FASTINGPERFORMED BY: [employer] [id number] BY: [employer] Culture CommunicationECU Health [facility] [id number] Creatinine (U) [Mass/Vol] 73.1 mg/dL Normal [facility] Work Phone: Comment on above: Test(s) 667749-RWZ-A ; 084866-SBC-W; 178809-FMW-D; 369167-Lwypzphiqenef; 889366-Vbdcyobstqd, Total; 896579-MVJ-W (Total);755588-Oofxr LDL-P; 362831-TBR Size; 618332-BS-TL Scorewas developed and its performance characteristics determinedby [employer]. It has not been cleared or approved by the FoodOR Productivity Drug Administration.PATIENT WAS FASTINGPERFORMED BY: [facility] [address] [id number] BY: [employer]6[address] [facility] [id number] NMR Profile (75475)Ordered B y: Wine Steward on 11-21-2019 Cholesterol [Mass/Vol] 169 mg/dL Normal 100-199 [facility] Work Phone: Comment on above: Test(s) 213458-ECX-I ; 287597-EAJ-N; 639339-UXC-R; 632126-Cdisbmipbfzku; 971567-Chjdntddnhr, Total; 342885-IUQ-Q (Total);507917-Iqidy LDL-P; 087636-ZVM Size; 954376-QR-OR Scorewas developed and its performance characteristics determinedby [employer]. It has not been cleared or approved by the Foodand Drug Administration.PATIENT WAS FASTINGPERFORMED BY: [facility] [address] [id number] BY: Barnebys Ekcnzm0362 [address] LookAcrossLifeBrite [facility] [id number] Cholesterol in HDL [Mass/Vol] 60 mg/dL Normal [facility] Work Phone: Comment on above: Test(s) 946476-ZGP-H ; 851405-JML-V; 016416-WMR-H; 685055-Tyldxhiphnecp; 705261-Kzkzrkugnne, Total; 148542-URY-O (Total);366692-Eagzq LDL-P; 955534-QWB Size; 836767-FA-FL Scorewas developed and its performance characteristics determinedby [employer]. It has not been cleared or approved by the Foodand Drug Administration.PATIENT WAS FASTINGPERFORMED BY: [facility] [address] [id number] BY: [employer] [facility] [id number] Cholesterol in LDL [Mass/Vol] 90 mg/dL Normal 0-99 [facility] Work Phone: Comment on above: . Optimal < 100 Abov e optimal 100 - 129 Borderline 130 - 159 High 160 - 189 Very high > 189 .LDL-C is inaccurate if patient is non-fasting. Test(s) 512586-FEO-Y ; 784764-ZLE-T; 649456-EQK-L; 615403-Vveojxrhlkauy; 496068-Frkixksaxbb, Total; 194710-PXL-M (Total);817658-Ngtlg LDL-P; 749267-HNS Size; 996423-ON-YN Scorewas developed and its performance characteristics determinedby [employer]. It has not been cleared or approved by the Foodand Drug Administration.PATIENT WAS FASTINGPERFORMED BY: [facility] [address] [id number] BY: [employer]70 [facility] [id number] Lipoprotein.alpha [Moles/Vol] 40.7 umol/L Normal [facility] Work Phone: Comment on above: Test(s) 408151-QGW-P ; 957978-DYB-P; 375734-GFS-K; 233953-Tvdjqkikmzhht; 867121-Yxesnnixmjq, Total; 520251-KGD-W (Total);960373-Gzxwm LDL-P; 012576-BEJ Size; 780625-FQ-PY Scorewas developed and its performance characteristics determinedby [employer]. It has not been cleared or approved by the Foodand Drug Administration.PATIENT WAS FASTINGPERFORMED BY: BN [facility] [address] [id number] BY: CB [facility] Pgmmsm5742 [facility] [id number] Lipoprotein.beta.sub particle [Entitic length] 21.0 nm Normal [facility] Work Phone: Comment on above: INTERPRETATIVE INFORMATION PARTICLE CONCENTRATION AND SIZE <--Lower CVD Risk Higher CVD Risk--> LDL AND HDL PARTICLES Percentile in Reference Population HDL-P (total) High 75th 50th 25th Low >34.9 34.9 30.5 26.7 <26.7 . Small LDL-P Low 25th 50th 75th High <117 117 527 839 >839 . LDL Size <-Large (Pattern A)-> <-Small (Pattern B)-> 23.0 20.6 20.5 19.0 Small LDL-P and LDL Size are associated with CVD risk, but not afterLDL-P is taken into account. Test(s) 179945-MSK-A ; 765672-SOQ-W; 303837-LQR-L; 474568-Cznmdexndesmp; 463270-Naczniugytl, Total; 845401-ECW-B (Total);267886-Ovvwk LDL-P; 348777-FOE Size; 615642-PY-TP Scorewas developed and its performance characteristics determinedby [employer]. It has not been cleared or approved by the Foodand Drug Administration.PATIENT WAS FASTINGPERFORMED BY: [facility] [address] [id number] BY: [employer] Rkpxmo5525 [facility] [id number] Lipoprotein.beta.sub particle [Moles/Vol] 1005 nmol/L Abnormal Comprehensi Internal Medicine Work Phone: Comment on above: Low < 1000 Moderate 1000 - 1299 Borderline-High 1300 - 1599 High 1600 - 2000 Very High > 2000 Test(s) 684273-FNO-E ; 426510-CDD-K; 968325-SYK-Q; 826549-Hmogevqqqyzvt; 745202-Rndgqeudqgr, Total; 465935-MJZ-G (Total);909230-Ppirk LDL-P; 782281-EGM Size; 458772-HH-CM Scorewas developed and its performance characteristics determinedby [employer]. It has not been cleared or approved by the Foodand Drug Administration.PATIENT WAS FASTINGPERFORMED BY: [employer] [address] [id number] BY: Snap[employer]70 [facility] [id number] Lipoprotein.beta.sub particle.small [Moles/Vol] 382 nmol/L Normal [facility] Internal Medicine Work Phone: Comment on above: Test(s) 083500-UBT-W ; 904675-DGB-T; 056362-CSX-O; 988621-Rhjwwqzljdwjc; 055685-Hwbinleuzjm, Total; 745736-VBB-P (Total);120235-Abzkk LDL-P; 617848-FWZ Size; 652886-WX-IP Scorewas developed and its performance characteristics determinedby [employer]. It has not been cleared or approved by the Foodand Drug Administration.PATIENT WAS FASTINGPERFORMED BY: [employer] [id number] BY: BarnebysLea Regional Medical CenterZomicv2555 [facility] [id number] Triglyceride [Mass/Vol] 97 mg/dL Normal 0-149 [facility] Work Phone: Comment on above: Test(s) 264893-PFS-Q ; 899875-TIZ-I; 998669-SDG-N; 677649-Klgrrlfcbwnse; 511969-Mwmxjiiksga, Total; 428426-UEV-R (Total);005218-Guvht LDL-P; 419670-KMN Size; 231752-VB-SS Scorewas developed and its performance characteristics determinedby [employer]. It has not been cleared or approved by the Foodand Drug Administration.PATIENT WAS FASTINGPERFORMED BY: [employer] [id number] BY: Barnebys Dsrdkr7209 [facility] [id number] NMR Profile (24725) 90 mg/dL Normal 0-99 Compr ehensive Internal Medicine; [facility] Work Phone: Comment on above: . Optimal < 100 Abov e optimal 100 - 129 Borderline 130 - 159 High 160 - 189 Very high > 189 .LDL-C is inaccurate if patient is non-fasting. Test(s) 961702-ZDQ-N ; 291328-QUA-A; 131809-LKZ-R; 988726-Pjljbkkzagxyw; 372135-Sgqecwcbckm, Total; 928795-NBH-U (Total);496253-Eogoa LDL-P; 954319-HTE Size; 992739-GF-ST Scorewas developed and its performance characteristics determinedby [employer]. It has not been cleared or approved by the Foodand Drug Administration.PATIENT WAS FASTINGPERFORMED BY: [employer] [id number] BY: Barnebys Jwunal1498 [facility] [id number] NMR Profile (93418) 60 mg/dL Normal Compr ehensive Internal Medicine; [facility] Work Phone: NMR Profile (20612) 97 mg/dL Normal 0-149 Compr ehensive Internal Medicine; [facility] Work Phone: NMR Profile (93953) 169 mg/dL Normal 100-199 Compr ehensive Internal Medicine; [facility] Work Phone: TSH (71438)Ordered By: SageQueste m [employer] Deburrer on 11-21-2019 TSH Qn 0.799 {uIU/mL} Normal 0.450-4.50 0 [facility] Work Phone: Comment on above: Test(s) 491592-YSI-D ; 098272-SHN-L; 663990-KXV-R; 093083-Aodhadckyoxpx; 984592-Hytojtcccsi, Total; 122239-REF-S (Total);570857-Vovun LDL-P; 939785-BIC Size; 831147-FR-QL Scorewas developed and its performance characteristics determinedby [employer]. It has not been cleared or approved by the Foodand Drug Administration.PATIENT WAS FASTINGPERFORMED BY: [employer] [facility] [id number] BY: Snap[employer]Ad70 [facility] [id number] URINALYSIS, W/ MICRO (76802) Ordered By: Wine Steward on 11-21-2019 Appearance (U) Clear Normal Comprehens yelena Internal Medicine Work Phone: Comment on above: Test(s) 006837-UIG-T ; 119012-LQD-R; 189061-MCO-Y; 758063-Rvwvlcenzyavg; 342160-Dhrnsrwznsh, Total; 493416-PAC-O (Total);846014-Amdlb LDL-P; 765097-ELT Size; 021151-RP-TT Scorewas developed and its performance characteristics determinedby [employer]. It has not been cleared or approved by the Foodand Drug Administration.PATIENT WAS FASTINGPERFORMED BY: [employer] [facility] [id number] BY: Snap[employer]70 [facility] [id number] Bilirubin Ql (U) Negative Normal Comprehe nsive Internal Medicine Work Phone: Comment on above: Test(s) 671109-AEX-Z ; 036134-ABJ-T; 155590-SXV-S; 293476-Hmdecznjfmsxi; 642127-Mhnopkgwhrd, Total; 197602-LDH-P (Total);316994-Mkpuk LDL-P; 215408-AKG Size; 036309-DV-RA Scorewas developed and its performance characteristics determinedby [employer]. It has not been cleared or approved by the Foodand Drug Administration.PATIENT WAS FASTINGPERFORMED BY: [employer] [id number] BY: [employer]6370 [facility] [id number] Bilirubin Ql (U) Negative Normal Comprehe nsive Internal Medicine; [facility] Work Phone: Comment on above: Test(s) 912611-ALL-U ; 102501-THM-Q; 327492-NCS-M; 917160-Zguxuolollpzs; 023844-Dxlslozswoo, Total; 704457-GDY-V (Total);063514-Ujqhn LDL-P; 060808-MDR Size; 280754-MN-GC Scorewas developed and its performance characteristics determinedby [employer]. It has not been cleared or approved by the Foodand Drug Administration.PATIENT WAS FASTINGPERFORMED BY: [employer] [id number] BY: [employer] Xffvhz5076 [facility] [id number] Color (U) Yellow Normal [facility] Work Phone: Comment on above: Test(s) 768118-JAT-U ; 475056-MYM-P; 718593-JNF-U; 332730-Aojvcfmbbzsgj; 083628-Pimhuymncoo, Total; 218353-KGX-Q (Total);860779-Nghpx LDL-P; 310787-BGQ Size; 332069-CG-TC Scorewas developed and its performance characteristics determinedby [employer]. It has not been cleared or approved by the Foodand Drug Administration.PATIENT WAS FASTINGPERFORMED BY: [employer] [id number] BY: BarnebysSt. Mary's HospitalJrnjfr0164 [facility] [id number] Glucose Ql (U) Negative Normal Comprehens yelena [facility] Medicine Work Phone: Comment on above: Test(s) 957278-USR-M ; 730454-KMF-L; 689152-ZZN-W; 082303-Ajucoskpiyoib; 750181-Kwjytmgmyol, Total; 776171-GWR-E (Total);754011-Bxarw LDL-P; 112465-YCE Size; 626858-MG-RE Scorewas developed and its performance characteristics determinedby [employer]. It has not been cleared or approved by the Foodand Drug Administration.PATIENT WAS FASTINGPERFORMED BY: [facility] [address] [id number] BY: BarnebysAbigail Ville 1876270 [facility] [id number] Glucose Ql (U) Negative Normal Comprehens yelena Internal Medicine; [facility] Work Phone: Comment on above: Test(s) 815531-TAU-A ; 362852-BSO-F; 658385-QUP-T; 831457-Xqtrcenhckknq; 353643-Kagwtyniesf, Total; 787570-TWM-R (Total);184813-Ozunn LDL-P; 963673-EYV Size; 342360-NW-TZ Scorewas developed and its performance characteristics determinedby [employer]. It has not been cleared or approved by the Foodand Drug Administration.PATIENT WAS FASTINGPERFORMED BY: [facility] [address] [id number] BY: BarnebysSt. Mary's HospitalGgoskc1702 [facility] [id number] Hemoglobin Ql (U) Negative Normal Compreh ensive Internal Medicine Work Phone: Comment on above: Test(s) 012985-BCB-R ; 741844-AUM-A; 941674-WYU-O; 447267-Ucpinblbefzwu; 384775-Jfwfqbneutq, Total; 785697-QFM-Z (Total);326647-Gscnr LDL-P; 071841-PZH Size; 585411-GP-MH Scorewas developed and its performance characteristics determinedby [employer]. It has not been cleared or approved by the Foodand Drug Administration.PATIENT WAS FASTINGPERFORMED BY: [facility] [address] [id number] BY: SnapMyAd70 [facility] [id number] Hemoglobin Ql (U) Negative Normal Compreh ensive Internal Medicine; [facility] Work Phone: Comment on above: Test(s) 677900-KWT-N ; 743840-MPA-A; 853752-YGP-Y; 657290-Zdvyuhkijiodn; 843035-Cgmlfvhnlur, Total; 330696-FXA-D (Total);097005-Moame LDL-P; 801829-HDP Size; 398353-KN-DD Scorewas developed and its performance characteristics determinedby [employer]. It has not been cleared or approved by the Foodand Drug Administration.PATIENT WAS FASTINGPERFORMED BY: [facility] [address] [id number] BY: [employer]6370 [facility] [id number] Ketones Ql (U) Negative Normal Comprehens y[facility]ena [facility] Work Phone: Comment on above: Test(s) 343977-ZQD-D ; 155514-OWI-N; 111263-PND-H; 188011-Uvqlkxridejej; 923793-Gjqvzymexqs, Total; 459756-WFK-T (Total);177379-Icbjd LDL-P; 386017-MOQ Size; 185373-NN-UX Scorewas developed and its performance characteristics determinedby [employer]. It has not been cleared or approved by the Foodand Drug Administration.PATIENT WAS FASTINGPERFORMED BY: [facility] [address] [id number] BY: [employer]6370 [facility] [id number] Ketones Ql (U) Negative Normal Comprehens yelena [facility] Medicine; [facility] Work Phone: Comment on above: Test(s) 846176-HBZ-L ; 051578-BCV-P; 644141-CCZ-P; 670999-Vmsqxvoycbovi; 648095-Rhtlwraaxky, Total; 801214-AIW-T (Total);692377-Hgqay LDL-P; 024192-SUM Size; 636551-GH-DQ Scorewas developed and its performance characteristics determinedby [employer]. It has not been cleared or approved by the Foodand Drug Administration.PATIENT WAS FASTINGPERFORMED BY: [employer] [id number] BY: [employer]6370 [place] LookAcrossLifeB[facility] [id number] Leukocyte esterase Test strip Ql (U) Negative Normal [facility] Work Phone: Comment on above: Test(s) 088647-QUX-G ; 409580-TYQ-N; 091148-XIR-B; 629323-Sfidfbleueyzf; 078021-Lydradkrpub, Total; 992596-LSQ-U (Total);808169-Cddev LDL-P; 061252-JQT Size; 518068-IG-XY Scorewas developed and its performance characteristics determinedby [employer]. It has not been cleared or approved by the Foodand Drug Administration.PATIENT WAS FASTINGPERFORMED BY: [facility] [address] [id number] BY: [employer] Mobilelin6370 [facility] [id number] Leukocyte esterase Test strip Ql (U) Negative Normal [facility]; [facility] Work Phone: Comment on above: Test(s) 956151-WQN-L ; 943573-YUX-X; 843290-RMY-C; 648525-Fqvzdzciztcal; 743458-Jrscdgisqrs, Total; 514512-KKQ-P (Total);672314-Yeysj LDL-P; 014627-USX Size; 973116-FW-PY Scorewas developed and its performance characteristics determinedby [employer]. It has not been cleared or approved by the Foodand Drug Administration.PATIENT WAS FASTINGPERFORMED BY: [facility] [address] [id number] BY: [employer] Daxdui8159 [place] LookAcrossLifeBrite [facility] [id number] Microscopic observation LM Nom (Urine sed) See below: Normal [facility] Work Phone: Comment on above: Microscopic was radha cated and was performed. Test(s) 877441-QEY-Y ; 410432-QTL-A; 954092-QWI-K; 508001-Ngbbnkdlbgvao; 827077-Yghencvqlao, Total; 241658-RTP-C (Total);667688-Eczee LDL-P; 736410-YGA Size; 245406-PU-KP Scorewas developed and its performance characteristics determinedby [employer]. It has not been cleared or approved by the Foodand Drug Administration.PATIENT WAS FASTINGPERFORMED BY: [facility] [address] [id number] BY: SnapMyAd70 TIFFS TREATS HOLDINGSLifeBrite [facility] [id number] Microscopic observation LM Nom (Urine sed) MICRON Normal [facility] Work Phone: Comment on above: Microscopic follows if indicated. Test(s) 172096-IOC-S ; 417517-FKM-K; 843033-VSK-T; 403175-Lzhujpbomnvhf; 326084-Xmdoirmizhj, Total; 950584-KUV-T (Total);119147-Hjjfc LDL-P; 387940-ONU Size; 654619-TN-TE Scorewas developed and its performance characteristics determinedby [employer]. It has not been cleared or approved by the Foodand Drug Administration.PATIENT WAS FASTINGPERFORMED BY: [facility] [address] [id number] BY: [employer]lin6370 [facility] [id number] Nitrite Ql (U) Negative Normal Comprehens [facility] Work Phone: Comment on above: Test(s) 282581-FPZ-E ; 417617-BST-P; 561768-TRN-C; 727404-Uzsubtbwgtgpe; 917137-Kqcjwdhlwmu, Total; 434387-VCW-B (Total);693786-Ysmar LDL-P; 535216-MDC Size; 312127-AD-WR Scorewas developed and its performance characteristics determinedby [employer]. It has not been cleared or approved by the Foodand Drug Administration.PATIENT WAS FASTINGPERFORMED BY: [facility] [address] [id number] BY: SnapMyAd70 [facility] [id number] Nitrite Ql (U) Negative Normal Comprehens y[facility]ena Internal Medicine; [facility] Work Phone: Comment on above: Test(s) 348716-ZCG-A ; 813503-YJS-O; 729289-YIK-Z; 360785-Kyakxptsqtihv; 340459-Ndzwogoinhi, Total; 453510-FSC-Y (Total);376921-Andkm LDL-P; 669152-STR Size; 313794-ZN-ZL Scorewas developed and its performance characteristics determinedby [employer]. It has not been cleared or approved by the Foodand Drug Administration.PATIENT WAS FASTINGPERFORMED BY: [facility] [address] [id number] BY: [employer] Fwbkkz1532 [facility] [id number] pH (U) 5.5 [pH] Normal 5.0-7.5 [facility] Work Phone: Comment on above: Test(s) 836899-EYP-D ; 881381-GDY-M; 257463-MEP-V; 869183-Zpyoavivodvqj; 017230-Xsuwwvzolqj, Total; 984192-JLH-N (Total);136724-Lczfp LDL-P; 240118-MMW Size; 096825-OT-YE Scorewas developed and its performance characteristics determinedby [employer]. It has not been cleared or approved by the Foodand Drug Administration.PATIENT WAS FASTINGPERFORMED BY: [facility] Lpmxlejudm2274 [facility] [id number] BY: Clean Mobilelin6370 [facility] [id number] Protein Ql (U) Negative Normal Comprehens yelena Internal Medicine Work Phone: Comment on above: Test(s) 992061-WAH-Q ; 091761-TRH-B; 351701-KXW-Q; 501110-Dsddyuooiyftn; 730700-Aqwtgkatdke, Total; 001359-WTF-T (Total);098991-Uhbeh LDL-P; 785985-BVS Size; 414733-NY-BE Scorewas developed and its performance characteristics determinedby [employer]. It has not been cleared or approved by the Foodand Drug Administration.PATIENT WAS FASTINGPERFORMED BY: [facility] [address] [id number] BY: [employer]6370 WalkerFult[facility] [id number] Protein Ql (U) Negative Normal Comprehens yelena Internal Medicine; [facility] Work Phone: Comment on above: Test(s) 820026-MFF-C ; 804772-NID-N; 605589-QLK-D; 021211-Bafvetdciqgxh; 380375-Fvxbyzexorh, Total; 048047-XWT-Y (Total);750220-Mfoiw LDL-P; 550017-DAF Size; 156839-YP-XZ Scorewas developed and its performance characteristics determinedby [employer]. It has not been cleared or approved by the Foodand Drug Administration.PATIENT WAS FASTINGPERFORMED BY: [facility] [address] [id number] BY: Clean Mobilelin6370 WalkerF[facility] [id number] Specific gravity (U) [Rel density] 1.016 1 Normal 1.005-1.03 0 [facility] Work Phone: Comment on above: Test(s) 346600-QMD-S ; 082839-NAC-Q; 925974-JGW-Z; 262652-Racdyzebymnbd; 201369-Ctmnfvrmtjz, Total; 319878-JHA-N (Total);935607-Ucqzr LDL-P; 408527-QLX Size; 858863-LD-XF Scorewas developed and its performance characteristics determinedby [employer]. It has not been cleared or approved by the Foodand Drug Administration.PATIENT WAS FASTINGPERFORMED BY: [facility] [address] [id number] BY: SnapMyAd70 [facility] [id number] Urobilinogen (U) [Mass/Vol] 0.2 mg/dL Normal 0.2-1.0 [facility] Internal Medicine; [facility] Internal Medicine Work Phone: Comment on above: Test(s) 901570-CWY-E ; 826952-MUZ-N; 379973-MYJ-Z; 331396-Fuohgksrvihad; 637399-Yzyohtmwvkt, Total; 404171-LOU-O (Total);675258-Jojrr LDL-P; 784074-KSZ Size; 717085-OH-BK Scorewas developed and its performance characteristics determinedby [employer]. It has not been cleared or approved by the Foodand Drug Administration.PATIENT WAS FASTINGPERFORMED BY: [facility] [address] [id number] BY: [employer]6370 [facility] [id number] Urobilinogen Test strip (U) [Mass/Vol] 0.2 mg/dL Normal 0.2-1.0 [facility] Internal Medicine Work Phone: Comment on above: Test(s) 194208-SED-M ; 352945-AKZ-G; 820880-NHD-D; 824976-Kplwikditsxaq; 257123-Ugocsbrujzr, Total; 051534-CGF-V (Total);665206-Tpzdb LDL-P; 221472-QJU Size; 451107-SE-TB Scorewas developed and its performance characteristics determinedby [employer]. It has not been cleared or approved by the Foodand Drug Administration.PATIENT WAS FASTINGPERFORMED BY: [employer] [id number] BY: [employer]70 [facility] [id number] CALCIFIDIOL (68678) VIT D 25 Ordered By: Wine Steward on 05-22-2019 25-Hydroxyvitamin D2+25-Hydroxyvitamin D3 [Mass/Vol] 38.6 ng/mL Normal 30.0-100.0 [facility] Work Phone: Comment on above: Vitamin D deficiency has been defined by the Ramer ofMedicine and an Endocrine Society practice guideline as alevel of serum 25-OH vitamin D less than 20 ng/mL (1,2).The Endocrine Society went on to further define vitamin Dinsufficiency as a level between 21 and 29 ng/mL (2).1. IOM (Ramer of Medicine). 2010. Dietary reference intakes for calcium and D. [place]: The National Academies Press.2. Karla MF, Zoila PÉREZ, Sofy REYES, et al. Evaluation, treatment, and prevention of vitamin D deficiency: an Endocrine Society clinical practice guideline. JCEM. 2010; 96(7):1911-30. PATIENT WAS FASTINGP ERFORMED BY: [employer] [id number] BY: [employer]6370 [facility] [id number] CBC W/AUTO DIFF WBC (62090)O rdered By: Wine Steward on 05-22-2019 Basophils (Bld) [#/Vol] 0.1 {x10E3/uL} Normal 0.0-0.2 [facility] Work Phone: Comment on above: PATIENT WAS FASTINGP ERFORMED BY: [employer] [id number] BY: [employer] Uflzqu6138 [facility] [id number] Basophils (Bld) [#/Vol] 0.1 10*3/uL Normal 0.0-0.2 [facility]; [facility] Work Phone: Comment on above: PATIENT WAS FASTINGP ERFORMED BY: Lab[address] [id number] BY: Lab[facility] Exnrlu7441 Walker RoadDublin [place] [id number] Basophils/100 WBC (Bld) 1 % Normal [facility] Work Phone: Comment on above: PATIENT WAS FASTINGP ERFORMED BY: Lab[address] [id number] BY: LabCoAbigail Ville 1876270 Walker RoadDublin [place] [id number] Eosinophils (Bld) [#/Vol] 0.2 {x10E3/uL} Normal 0.0-0.4 [facility] Work Phone: Comment on above: PATIENT WAS FASTINGP ERFORMED BY: [address] [id number] BY: LabAsc[facility] Hospital[address] Br[facility] HospitalDublin [place] [id number] Eosinophils (Bld) [#/Vol] 0.2 10*3/uL Normal 0.0-0.4 [facility]; [facility] Work Phone: Comment on above: PATIENT WAS FASTINGP ERFORMED BY: [address] [id number] BY: LabCoSt. Mary's HospitalLdvvrq0105 Walker RoadDuin [place] [id number] Eosinophils/100 WBC (Bld) 2 % Normal [facility] Work Phone: Comment on above: PATIENT WAS FASTINGP ERFORMED BY: [address] [id number] BY: LabCoAbigail [place] 1876[address] [facility] [id number] Erythrocyte distribution width (RBC) [Ratio] 13.1 % Normal 12.3-15.4 [facility] Work Phone: Comment on above: PATIENT WAS FASTINGP ERFORMED BY: [address] [id number] BY: TRESAS [facility] Lwdpyl8139 Walker Roadblin [place] [id number] Hematocrit (Bld) [Volume fraction] 45.1 % Normal 34.0-46.6 [facility] Work Phone: Comment on above: PATIENT WAS FASTINGP ERFORMED BY: [address] [id number] BY: [facility] Zezyxa5013 Walker Roadblin [place] [id number] Hemoglobin (Bld) [Mass/Vol] 14.8 g/dL Normal 11.1-15.9 [facility] Work Phone: Comment on above: PATIENT WAS FASTINGP ERFORMED BY: [employer] [id number] BY: TRESSA [facility] Kdurkh3644 Walker RoadHugh Chatham Memorial Hospitalin [place] [id number] Immature granulocytes (Bld) [#/Vol] 0.0 {x10E3/uL} Normal 0.0-0.1 [facility] Work Phone: Comment on above: PATIENT WAS FASTINGP ERFORMED BY: [employer] [id number] BY: Ginger SoftwareAscension Standish Hospital6[address] RoadLifeBrite Community Hospital [facility] [id number] Immature granulocytes (Bld) [#/Vol] 0.0 10*3/uL Normal 0.0-0.1 [facility]; [facility] Work Phone: Comment on above: PATIENT WAS FASTINGP ERFORMED BY: [employer] [id number] BY: LabRobert Ville 42426[address] [facility] [id number] Immature granulocytes/100 WBC (Bld) 0 % Normal [facility] Work Phone: Comment on above: PATIENT WAS FASTINGP ERFORMED BY: [address] [id number] BY: TRESSA [employer] Wgtzqi6530 Walker RoadDublin [place] [id number] Lymphocytes (Bld) [#/Vol] 2.9 {x10E3/uL} Normal 0.7-3.1 [facility] Work Phone: Comment on above: PATIENT WAS FASTINGP ERFORMED BY: [address] [id number] BY: [facility] Ayytcl2818 Walker RoadDublin [place] [id number] Lymphocytes (Bld) [#/Vol] 2.9 10*3/uL Normal 0.7-3.1 [facility]; [facility] Work Phone: Comment on above: PATIENT WAS FASTINGP ERFORMED BY: [address] [id number] BY: LabSaint [facility] Fhdvlu1515 Walker RoadLifeBrite Community Hospital [facility] [id number] Lymphocytes/100 WBC (Bld) 34 % Normal [facility] Work Phone: Comment on above: PATIENT WAS FASTINGP ERFORMED BY: [address] [id number] BY: LabAscension Standish Hospital[address] [facility] [id number] MCH (RBC) [Entitic mass] 32.2 pg Normal 26.6-33.0 [facility] Work Phone: Comment on above: PATIENT WAS FASTINGP ERFORMED BY: [address] [id number] BY: LabSaint [facility] Ikyzhx33[address] [facility] [id number] MCHC (RBC) [Mass/Vol] 32.8 g/dL Normal 31.5-35.7 [facility] Work Phone: Comment on above: PATIENT WAS FASTINGP ERFORMED BY: [address] [id number] BY: [place] 9151070 [facility] Centerin [place] [id number] MCV (RBC) [Entitic vol] 98 fL Abnormal 79-97 [facility] Work Phone: Comment on above: PATIENT WAS FASTINGP ERFORMED BY: [address] [id number] BY: [facility]6[address] RoadDublin [place] [id number] Monocytes (Bld) [#/Vol] 0.4 {x10E3/uL} Normal 0.1-0.9 [facility] Work Phone: Comment on above: PATIENT WAS FASTINGP ERFORMED BY: [address] [id number] BY: [place] 9[address]10[address] [facility] [id number] Monocytes (Bld) [#/Vol] 0.4 10*3/uL Normal 0.1-0.9 [facility]; [facility] Work Phone: Comment on above: PATIENT WAS FASTINGP ERFORMED BY: [address] [id number] BY: [place] 91510[address] [facility] [id number] Monocytes/100 WBC (Bld) 5 % Normal [facility] Work Phone: Comment on above: PATIENT WAS FASTINGP ERFORMED BY: [address] [id number] BY: [facility]6370 [address] RoadHugh Chatham Memorial Hospitalin [place] [id number] Neutrophils (Bld) [#/Vol] 5.1 {x10E3/uL} Normal 1.4-7.0 [facility] Work Phone: Comment on above: PATIENT WAS FASTINGP ERFORMED BY: [address] [id number] BY: [facility] Ekabww1015 Walker RoadDublin [place] [id number] Neutrophils (Bld) [#/Vol] 5.1 10*3/uL Normal 1.4-7.0 [facility]; [facility] Work Phone: Comment on above: PATIENT WAS FASTINGP ERFORMED BY: [facility] [address] [id number] BY: CB [facility] Aleubw7552 Walker RoadDublin [place] [id number] Neutrophils/100 WBC (Bld) 58 % Normal [facility] Work Phone: Comment on above: PATIENT WAS FASTINGP ERFORMED BY: [facility] [address] [id number] BY: [facility] Ozqgky8595 Walker RoadDublin [place] [id number] Platelets (Bld) [#/Vol] 384 {x10E3/uL} Normal 150-450 [facility] Internal Medicine Work Phone: Comment on above: PATIENT WAS FASTINGP ERFORMED BY: [facility] [address] [id number] BY: [facility] Inpkxv6307 [address] RoadDublin [place] [id number] Platelets (Bld) [#/Vol] 384 10*3/uL Normal 150-450 [facility]; [facility] Internal Medicine Work Phone: Comment on above: PATIENT WAS FASTINGP ERFORMED BY: [facility] [address] [id number] BY: [facility] Iuepxh9528 Walker RoadDublin [place] [id number] RBC (Bld) [#/Vol] 4.60 {x10E6/uL} Normal 3.77-5.28 [facility] Internal Medicine Work Phone: Comment on above: PATIENT WAS FASTINGP ERFORMED BY: [facility] [address] [id number] BY: CB [facility] Qhfjmt8778 Walker RoadDublin [place] [id number] RBC (Bld) [#/Vol] 4.60 10*6/uL Normal 3.77-5.28 [facility] Internal Medicine; [facility] Work Phone: Comment on above: PATIENT WAS FASTINGP ERFORMED BY: [facility] [address] [id number] BY: CB [facility] Feofyk[address] [facility] [id number] WBC (Bld) [#/Vol] 8.7 {x10E3/uL} Normal 3.4-10.8 [facility] Internal Medicine Work Phone: Comment on above: PATIENT WAS FASTINGP ERFORMED BY: [facility] [address] [id number] BY: [facility] Qpejtu6972 [facility] [id number] WBC (Bld) [#/Vol] 8.7 10*3/uL Normal 3.4-10.8 [facility] Internal Medicine; [facility] Work Phone: Comment on above: PATIENT WAS FASTINGP ERFORMED BY: [employer]POINT [employer]ical[address] [id number] BY: [facility] Ykmzny2288 [facility] [id number] METABOLIC PANEL, COMPREHENSI VE (00971)Ordered By: Wine Steward on 05-22-2019 Albumin [Mass/Vol] 4.8 g/dL Normal 3.6-4.8 [facility] Internal Medicine Work Phone: Comment on above: PATIENT WAS FASTINGP ERFORMED BY: [facility] [address] [id number] BY: [facility] Lhpthe4464 [facility] [id number] Albumin/Globulin [Mass ratio] 2.1 {ratio} Normal 1.2-2.2 [facility] Internal Medicine Work Phone: Comment on above: PATIENT WAS FASTINGP ERFORMED BY: [facility] [address] [id number] BY: TRESSA [facility] Dowllw1217 Walker RoadDublin [place] [id number] ALP [Catalytic activity/Vol] 70 [iU]/L Normal 39-117 [facility] Work Phone: Comment on above: PATIENT WAS FASTINGP ERFORMED BY: [facility] HospitalCo[address] [id number] BY: TRESSA [facility] Eyrwkr7342 [address] RoadDublin [place] [id number] ALP [Catalytic activity/Vol] 70 U/L Normal 39-117 [facility]; [facility] Work Phone: Comment on above: PATIENT WAS FASTINGP ERFORMED BY: [address] [id number] BY: TRESSA [facility] Convbz0509 [address] RoadDublin [place] [id number] ALT [Catalytic activity/Vol] 15 [iU]/L Normal 0-32 [facility] Work Phone: Comment on above: PATIENT WAS FASTINGP ERFORMED BY: [address] [id number] BY: TRESSA [facility] Oprtfn2227 Walker RoadDublin [place] [id number] ALT [Catalytic activity/Vol] 15 U/L Normal 0-32 [facility]; [facility] Work Phone: Comment on above: PATIENT WAS FASTINGP ERFORMED BY: [address] [id number] BY: TRESSA [facility] Jhyegp5796 [address] RoadDublin [place] [id number] AST [Catalytic activity/Vol] 21 [iU]/L Normal 0-40 [facility] Work Phone: Comment on above: PATIENT WAS FASTINGP ERFORMED BY: Lab[address] [id number] BY: TRESSA [facility] Sidfxw7461 [address] RoadDublin [place] [id number] AST [Catalytic activity/Vol] 21 U/L Normal 0-40 [facility]; [facility] Work Phone: Comment on above: PATIENT WAS FASTINGP ERFORMED BY: [facility] [address] [id number] BY: [facility] Xcsrxp4321 [address] RoadDublin [place] [id number] Bilirubin [Mass/Vol] 0.4 mg/dL Normal 0.0-1.2 [facility] Work Phone: Comment on above: PATIENT WAS FASTINGP ERFORMED BY: [facility] [address] [id number] BY: [facility] Idhwxb1767 [address] RoadDublin [place] [id number] Calcium [Mass/Vol] 9.6 mg/dL Normal 8.7-10.3 [facility] Internal Medicine Work Phone: Comment on above: PATIENT WAS FASTINGP ERFORMED BY: [facility] [address] [id number] BY: [facility] Qgcjso8165 [address] RoadDublin [place] [id number] Chloride [Moles/Vol] 104 mmol/L Normal 96-106 [facility] Internal Medicine Work Phone: Comment on above: PATIENT WAS FASTINGP ERFORMED BY: LabCo[address] [id number] BY: [facility] Umzrut5262 [address] RoadDublin [place] [id number] CO2 [Moles/Vol] 21 mmol/L Normal 20-29 [facility] Internal Medicine Work Phone: Comment on above: PATIENT WAS FASTINGP ERFORMED BY: [facility] [address] [id number] BY: [facility] Tknrws5696 [address] RoadDublin [place] [id number] Creatinine [Mass/Vol] 0.60 mg/dL Normal 0.57-1.00 [facility] Internal Medicine Work Phone: Comment on above: PATIENT WAS FASTINGP ERFORMED BY: Lab[address] [id number] BY: [facility] Ugxbvb[address] [facility] [id number] GFR/1.73 sq M predicted among blacks CKD-EPI (S/P/Bld) [Vol rate/Area] 112 mL/min/1.73 Normal [facility] Work Phone: Comment on above: PATIENT WAS FASTINGP ERFORMED BY: LabCo[address] [id number] BY: [facility] Dztxei4[address] [facility] [id number] GFR/1.73 sq M predicted among non-blacks CKD-EPI (S/P/Bld) [Vol rate/Area] 97 mL/min/1.73 Normal [facility] Work Phone: Comment on above: PATIENT WAS FASTINGP ERFORMED BY: Lab[address] [id number] BY: [facility] Lqnlut5186 [facility] [id number] Globulin (S) [Mass/Vol] 2.3 g/dL Normal 1.5-4.5 [facility] Work Phone: Comment on above: PATIENT WAS FASTINGP ERFORMED BY: Lab[address] [id number] BY: [facility] Hcpsco3275 [facility] [id number] Glucose [Mass/Vol] 89 mg/dL Normal 65-99 [facility] Internal Medicine Work Phone: Comment on above: PATIENT WAS FASTINGP ERFORMED BY: Lab[address] [id number] BY: [facility] Egqrps1486 [facility] [id number] Potassium [Moles/Vol] 4.8 mmol/L Normal 3.5-5.2 [facility] Work Phone: Comment on above: PATIENT WAS FASTINGP ERFORMED BY: BN [facility] Wvzebxptca3005 [facility] [id number] BY: CB [facility] Mlwixu5326 [address] RoadDublin [place] [id number] Protein [Mass/Vol] 7.1 g/dL Normal 6.0-8.5 [facility] Internal Medicine Work Phone: Comment on above: PATIENT WAS FASTINGP ERFORMED BY: BN [facility] Fwzdjutzvc[address] [id number] BY: CB [facility] Kvfnyj5601 [address] RoadDublin [place] [id number] Sodium [Moles/Vol] 142 mmol/L Normal 134-144 [facility] Internal Medicine Work Phone: Comment on above: PATIENT WAS FASTINGP ERFORMED BY: [facility] [address] [id number] BY: CB [facility] Prrziv6598 [address] RoadDublin [place] [id number] Urea nitrogen [Mass/Vol] 14 mg/dL Normal 8-27 [facility] Work Phone: Comment on above: PATIENT WAS FASTINGP ERFORMED BY: BN [facility] [address] [id number] BY: CB [facility] Njmjnj7069 [address] RoadDublin [place] [id number] Urea nitrogen/Creatinine [Mass ratio] 23 mg/mg Normal 12-28 [facility] Work Phone: Comment on above: PATIENT WAS FASTINGP ERFORMED BY: [facility] [address] [id number] BY: CB [facility] Tfpykm4279 [address] RoadDublin [place] [id number] MICROALBUMINOrdered By: [employer] Deburrer on 05-22-2019 Albumin DL <= 20 mg/L (U) [Mass/Vol] mg/dL Normal Com[facility] e Internal Medicine Work Phone: Comment on above: PATIENT WAS FASTINGP ERFORMED BY: [employer] [id number] BY: LabCoSt. Mary's HospitalOdomcd1832 [facility] [id number] Albumin DL <= 20 mg/L (U) [Mass/Vol] mg/dL Normal Comprehensiv e Internal Medicine; [facility] Work Phone: Comment on above: PATIENT WAS FASTINGP ERFORMED BY: [employer] [id number] BY: Ginger SoftwareAscension Standish Hospital6370 [facility] [id number] Albumin/Creatinine (U) [Mass ratio] <11.8 Normal 0.0-30.0 [facility] Work Phone: Comment on above: Normal: 0.0 - 30.0 A lbuminuria: 31.0 - 300.0 Clinical albuminuria: >300.0 PATIENT WAS FASTINGP ERFORMED BY: Barnebys[address] [id number] BY: Ginger SoftwareAscension Standish Hospital6370 [facility] [id number] Creatinine (U) [Mass/Vol] 25.5 mg/dL Normal [facility] Work Phone: Comment on above: PATIENT WAS FASTINGP ERFORMED BY: Barnebys[address] [id number] BY: Ginger SoftwareAscension Standish Hospital6370 [facility] [id number] NMR Profile ([id number])Ordered B y: Wine Steward on 05-22-2019 Cholesterol [Mass/Vol] 162 mg/dL Normal 100-199 [facility] Work Phone: Comment on above: PATIENT WAS FASTINGP ERFORMED BY: [employer] [id number] BY: LabAscension Standish Hospital6370 [facility] [id number] Lipoprotein.alpha [Moles/Vol] 40.3 umol/L Normal [facility] Work Phone: Comment on above: PATIENT WAS FASTINGP ERFORMED BY: [employer] [id number] BY: [employer]70 [facility] [id number] Lipoprotein.beta.sub particle [Entitic length] 20.7 nm Normal [facility] Internal Medicine Work Phone: Comment on above: INTERPRETATIVE INFORMATION PARTICLE CONCENTRATION AND SIZE <--Lower CVD Risk Higher CVD Risk--> LDL AND HDL PARTICLES Percentile in Reference Population HDL-P (total) High 75th 50th 25th Low >34.9 34.9 30.5 26.7 <26.7 . Small LDL-P Low 25th 50th 75th High <117 117 527 839 >839 . LDL Size <-Large (Pattern A)-> <-Small (Pattern B)-> 23.0 20.6 20.5 19.0 Small LDL-P and LDL Size are associated with CVD risk, but not afterLDL-P is taken into account. .These assays were developed and their performance characteristicsdetermined by [employer]. These assays have not been cleared by [place] Food and Drug Administration. The clinical utility of theselaboratory values have not been fully established. PATIENT WAS FASTINGP ERFORMED BY: [employer] [id number] BY: [employer]6370 [facility] [id number] Lipoprotein.beta.sub particle [Moles/Vol] 850 nmol/L Normal [facility] Internal Medicine Work Phone: Comment on above: Low < 1000 Moderate 1000 - 1299 Borderline-High 1300 - 1599 High 1600 - 2000 Very High > 2000 PATIENT WAS FASTINGP ERFORMED BY: Barnebys[address] [id number] BY: [facility] Eimqcs5728 [address] Roadblin [place] [id number] Lipoprotein.beta.sub particle.small [Moles/Vol] 442 nmol/L Normal [facility] Work Phone: Comment on above: PATIENT WAS FASTINGP ERFORMED BY: Barnebys[address] [id number] BY: [employer] Ojlggx[address] LookAcrossLifeBrite [facility] [id number] Triglyceride [Mass/Vol] 72 mg/dL Normal 0-149 [facility] Work Phone: Comment on above: PATIENT WAS FASTINGP ERFORMED BY: Barnebys[address] [id number] BY: BarnebysLea Regional Medical CenterVigdnr[address] LookAcrossLifeBrite [facility] [id number] NMR Profile (88257) 83 mg/dL Normal 0-99 Compr ensive Internal Medicine Work Phone: Comment on above: . Optimal < 100 Abov e optimal 100 - 129 Borderline 130 - 159 High 160 - 189 Very high > 189 .LDL-C is inaccurate if patient is non-fasting. PATIENT WAS FASTINGP ERFORMED BY: Barnebys[address] [id number] BY: Barnebys Chmlbt9960 [address] LookAcrossLifeBrite [facility] [id number] NMR Profile (64916) 65 mg/dL Normal Compr ensive [facility] Medicine Work Phone: Comment on above: PATIENT WAS FASTINGP ERFORMED BY: Barnebys[address] [id number] BY: Barnebys Teyyga4955 Walker RoadDublin [place] [id number] NMR Profile (41444) 72 mg/dL Normal 0-149 Compr ehensive Internal Medicine; [facility] Work Phone: NMR Profile (54314) 162 mg/dL Normal 100-199 Compr ehensive Internal Medicine; [facility] Work Phone: TSH (31880)Ordered By: [employer] Deburrer on 05-22-2019 TSH Qn 0.617 {uIU/mL} Normal 0.450-4.50 0 [facility] Work Phone: Comment on above: PATIENT WAS FASTINGP ERFORMED BY: BN [facility] Nefgbjfqxb05[address] [id number] BY: CB [facility] Vflkwo7652 Walker RoadDublin [place] [id number] URINALYSIS, W/ MICRO (83576) Ordered By: Wine Steward on 05-22-2019 Appearance (U) Clear Normal Comprehens yelena Internal Medicine Work Phone: Comment on above: PATIENT WAS FASTINGP ERFORMED BY: BN [facility] Nkyyopiwln9718[address] [id number] BY: CB [facility] Iorfvr0736 Walker RoadDublin [place] [id number] Bilirubin Ql (U) Negative Normal Comprehe nsive Internal Medicine Work Phone: Comment on above: PATIENT WAS FASTINGP ERFORMED BY: Grovo [facility]POINT [employer]icalrp Gbrzpqquah929[address] [id number] BY: CB [facility] Hiupgc8980 [address] RoadDublin [place] [id number] Bilirubin Ql (U) Negative Normal Comprehe nsive Internal Medicine; [facility] Work Phone: Comment on above: PATIENT WAS FASTINGP ERFORMED BY: BN [facility] Oigzfhgpxq429329 [address] [id number] BY: CB [facility] Clhjzl4108 Walker RoadDublin [place] [id number] Color (U) Yellow Normal [facility] Work Phone: Comment on above: PATIENT WAS FASTINGP ERFORMED BY: BN [facility] Aydksmmhux3309[address] [id number] BY: TRESSA [facility] Bukazn1500 Walker RoadDublin [place] [id number] Glucose Ql (U) Negative Normal Comprehens yelena [facility] Work Phone: Comment on above: PATIENT WAS FASTINGP ERFORMED BY: [facility] [address] [id number] BY: TRESSA [facility] Cgmsyh3821 Walker RoadDublin [place] [id number] Glucose Ql (U) Negative Normal Comprehens yelena [facility]; [facility] Work Phone: Comment on above: PATIENT WAS FASTINGP ERFORMED BY: LabCo[address] [id number] BY: TRESSA [facility] Kvfktv7330 Walker RoadDublin [place] [id number] Hemoglobin Ql (U) Negative Normal Compreh ensive Internal Medicine Work Phone: Comment on above: PATIENT WAS FASTINGP ERFORMED BY: LabCo[address] [id number] BY: TRESSA [facility] Oixnvt5238 [address] RoadDublin [place] [id number] Hemoglobin Ql (U) Negative Normal Compreh ensive Internal Medicine; [facility] Work Phone: Comment on above: PATIENT WAS FASTINGP ERFORMED BY: Lab[address] [id number] BY: [facility] Obhetg5612 Walker RoadDublin [place] [id number] Ketones Ql (U) Negative Normal Comprehens yelena [facility] Work Phone: Comment on above: PATIENT WAS FASTINGP ERFORMED BY: Lab[address] [id number] BY: TRESSA [facility] Bgspvk8912 Walker RoadDublin [place] [id number] Ketones Ql (U) Negative Normal Comprehens yelena [facility]; [facility] Work Phone: Comment on above: PATIENT WAS FASTINGP ERFORMED BY: Lab[address] [id number] BY: [facility] Fftkro2759 Walker RoadDublin [place] [id number] Leukocyte esterase Test strip Ql (U) Negative Normal [facility] Work Phone: Comment on above: PATIENT WAS FASTINGP ERFORMED BY: Lab[address] [id number] BY: [facility] Hpazzl9280 [address] RoadDublin [place] [id number] Leukocyte esterase Test strip Ql (U) Negative Normal [facility]; [facility] Work Phone: Comment on above: PATIENT WAS FASTINGP ERFORMED BY: Lab[address] [id number] BY: [facility] Bfycnd8361 Walker RoadDublin [place] [id number] Microscopic observation LM Nom (Urine sed) See below: Normal [facility] Work Phone: Comment on above: Microscopic was radha cated and was performed. PATIENT WAS FASTINGP ERFORMED BY: [address] [id number] BY: [facility] Parhhd8453 Walker RoadDublin [place] [id number] Microscopic observation LM Nom (Urine sed) MICRON Normal [facility] Work Phone: Comment on above: Microscopic follows if indicated. PATIENT WAS FASTINGP ERFORMED BY: Lab[address] [id number] BY: [facility] Ztzlut6741 Walker RoadDublin [place] [id number] Nitrite Ql (U) Negative Normal Comprehens yelena [facility] Work Phone: Comment on above: PATIENT WAS FASTINGP ERFORMED BY: Lab[address] [id number] BY: [facility] Czxigk2125 [address] RoadDublin [place] [id number] Nitrite Ql (U) Negative Normal Comprehens yelena [facility]; [facility] Work Phone: Comment on above: PATIENT WAS FASTINGP ERFORMED BY: [address] [id number] BY: TRESSA [facility] Cdffxd4761 [address] RoadDublin [place] [id number] pH (U) 6.5 [pH] Normal 5.0-7.5 [facility] Work Phone: Comment on above: PATIENT WAS FASTINGP ERFORMED BY: [address] [id number] BY: TRESSA [facility] Ualscl4276 [address] RoadDublin [place] [id number] Protein Ql (U) Negative Normal Comprehens yelena [facility] Work Phone: Comment on above: PATIENT WAS FASTINGP ERFORMED BY: [address] [id number] BY: TRESSA [facility] Uwrmyw2832 [address] RoadDublin [place] [id number] Protein Ql (U) Negative Normal Comprehens yelena [facility]; [facility] Work Phone: Comment on above: PATIENT WAS FASTINGP ERFORMED BY: [address] [id number] BY: [facility] Fcvbzd8621 Walker RoadDublin [place] [id number] Specific gravity (U) [Rel density] 1.011 1 Normal 1.005-1.03 0 [facility] Work Phone: Comment on above: PATIENT WAS FASTINGP ERFORMED BY: [address] [id number] BY: [facility] Lzpkgl7326 [address] RoadDublin [place] [id number] Urobilinogen (U) [Mass/Vol] 0.2 mg/dL Normal 0.2-1.0 [facility]; [facility] Work Phone: Comment on above: PATIENT WAS FASTINGP ERFORMED BY: Ginger SoftwareWilliam V[place] 866757 [facility] [id number] BY: Ginger SoftwareAscension Standish Hospital6370 [facility] [id number] Urobilinogen Test strip (U) [Mass/Vol] 0.2 mg/dL Normal 0.2-1.0 Comprehensi ve Internal Medicine Work Phone: Comment on above: PATIENT WAS FASTINGP ERFORMED BY: [employer] Software[address] [id number] BY: Ginger SoftwareAscension Standish Hospital6370 [facility] [id number] CALCIFIDIOL (10644) VIT D 25 Ordered By: Wine Steward on 05-28-2018 25-Hydroxyvitamin D2+25-Hydroxyvitamin D3 [Mass/Vol] 28.7 ng/mL Abnormal 30.0-100.0 [facility] Work Phone: Comment on above: Vitamin D deficiency has been defined by the Ramer ofMedicine and an Endocrine Society practice guideline as alevel of serum 25-OH vitamin D less than 20 ng/mL (1,2).The Endocrine Society went on to further define vitamin Dinsufficiency as a level between 21 and 29 ng/mL (2).1. IOM (Ramer of Medicine). 2010. Dietary reference intakes for calcium and D. [place]: The National Academies Press.2. Karla MF, Zoila NC, Sofy REYES, et al. Evaluation, treatment, and prevention of vitamin D deficiency: an Endocrine Society clinical practice guideline. JCEM. 2010; 96(7):1911-30. PATIENT NOT FASTINGP ERFORMED BY: Ginger SoftwareAscension Standish Hospital6370 [facility] [id number] HPV automatic (84967)Ordered By: Wine Steward on 04-12-2018 HPV 16+18+31+33+35+39+45 +51+52+56+58+59+68 DNA Probe+sig amp Ql (Cvx) Negative Normal [facility] Work Phone: Comment on above: This high-risk HPV t est detects thirteen high-risk types(16/18/31/33/35/39/45/51/52/56/58/59/68) without differentiation. . Source.............C ervix;EndocervixNo. of containers..01 ThinPrep VialPATIENT WAS FASTINGPERFORMED BY: Barnebys Khoppvvget65622 [address] StreetherminiaLong Island Hospital [id number] BY: =G [facility] Ttadgfgcmr[address] [id number] Information: [id number] HPV 16+18+31+33+35+39+45 +51+52+56+58+59+68 DNA Probe+sig amp Ql (Cvx) Negative Normal [facility]; [facility] Work Phone: Comment on above: This high-risk HPV t est detects thirteen high-risk types(16/18/31/33/35/39/45/51/52/56/58/59/68) without differentiation. . Source.............C ervix;EndocervixNo. of containers..01 ThinPrep VialPATIENT WAS FASTINGPERFORMED BY: Barnebys Guquakaykp[address] [id number] BY: =G Ginger SoftwareSaint John'S [facility] Apryfppwyt64[address] [id number] Information: [id number] Microscopic observation Other stain Nom (Unsp spec) . Normal [facility] Work Phone: Comment on above: Source.............C ervix;EndocervixNo. of containers..01 ThinPrep VialPATIENT WAS FASTINGPERFORMED BY: Barnebys Tmrjqybckc93722 [address] StreetherminiaLong Island Hospital [id number] BY: =G Ginger SoftwareSaint John'S [facility] Ehcwprqcsn[address] [id number] Information: [id number] Pathology report final diagnosis Narrative SPRCS Normal [facility] Work Phone: Comment on above: NEGATIVE FOR INTRAEP ITHELIAL LESION AND MALIGNANCY.Satisfactory for evaluation. Endocervical component may not bedistinguished in cases of atrophy.Z11.51Arnaldo Farah Pool Player (ASC) Source.............C ervix;EndocervixNo. of containers..01 ThinPrep VialPATIENT WAS FASTINGPERFORMED BY: LabRipCodeCnvxyxcbho824[address] [id number] BY: =G LabRipCodeCljfqppswk[address] [id number] Information: [id number] HPV automatic (12060) PAPSMR Normal [facility] Work Phone: Comment on above: The Pap smear is a s creening test designed to aid in the detection ofpremalignant and malignant conditions of the uterine cervix. It is not adiagnostic procedure and should not be used as the sole means of detectingcervical cancer. Both false-positive and false-negative reports do occur. .This liquid based ThinPrep(R) pap test was screened with theuse of an image guided system. Source.............C ervix;EndocervixNo. of containers..01 ThinPrep VialPATIENT WAS FASTINGPERFORMED BY: LabRipCodeEbgggqdsjf38[address] [id number] BY: =G LabRipCodePhdbtmndpr08786 York Streetrupmc [facility] W [id number] Information: [id number] CBC W/AUTO DIFF WBC (17158)O rdered By: Wine Steward on 04-05-2018 Basophils (Bld) [#/Vol] 0.0 {x10E3/uL} Normal 0.0-0.2 [facility] Work Phone: Comment on above: PATIENT WAS FASTINGP ERFORMED BY: BN LabCoMarlton Rehabilitation HospitalLfzgkmvegv3659 [facility] [id number] BY: CB LabAscension Standish Hospital6370 [facility] Hospitalblin [place] [id number]; OV 718 Basophils (Bld) [#/Vol] 0.0 10*3/uL Normal 0.0-0.2 [facility]; [facility] Work Phone: Comment on above: PATIENT WAS FASTINGP ERFORMED BY: [address] [id number] BY: LabRobert Ville 42426[address] [facility] [id number]; OV 7 Basophils/100 WBC (Bld) 0 % Normal [facility] Work Phone: Comment on above: PATIENT WAS FASTINGP ERFORMED BY: [address] [id number] BY: [place] 9151070 [facility] [id number]; OV 7 Eosinophils (Bld) [#/Vol] 0.2 {x10E3/uL} Normal 0.0-0.4 [facility] Work Phone: Comment on above: PATIENT WAS FASTINGP ERFORMED BY: [address] [id number] BY: [facility]6370 [facility] [id number]; OV 7 Eosinophils (Bld) [#/Vol] 0.2 10*3/uL Normal 0.0-0.4 [facility]; [facility] Work Phone: Comment on above: PATIENT WAS FASTINGP ERFORMED BY: [address] [id number] BY: [place] 9151070 [facility] [id number]; OV 7 Eosinophils/100 WBC (Bld) 2 % Normal [facility] Work Phone: Comment on above: PATIENT WAS FASTINGP ERFORMED BY: [address] [id number] BY: [facility] Rcwqhj4669 Walker Roadblin [place] [id number]; OV 04/12/18 Erythrocyte distribution width (RBC) [Ratio] 13.2 % Normal 12.3-15.4 [facility] Work Phone: Comment on above: PATIENT WAS FASTINGP ERFORMED BY: [address] [id number] BY: LabCoAbigail V[place] 1876270 [address] [facility] Centerin [place] [id number]; OV 04/12/18 Hematocrit (Bld) [Volume fraction] 43.5 % Normal 34.0-46.6 [facility] Work Phone: Comment on above: PATIENT WAS FASTINGP ERFORMED BY: [address] [id number] BY: LabCoAbigail [place] 1876270 [address] [facility] [id number]; OV 04/12/18 Hemoglobin (Bld) [Mass/Vol] 14.6 g/dL Normal 11.1-15.9 [facility] Work Phone: Comment on above: PATIENT WAS FASTINGP ERFORMED BY: [address] [id number] BY: LabCoAbigail [place] 1876270 [address] [facility] [id number]; OV 04/12/18 Immature granulocytes (Bld) [#/Vol] 0.0 {x10E3/uL} Normal 0.0-0.1 [facility] Work Phone: Comment on above: PATIENT WAS FASTINGP ERFORMED BY: [address] [id number] BY: LabSaint [facility] Mbbntn[address] [facility] [id number]; OV 04/12/18 Immature granulocytes (Bld) [#/Vol] 0.0 10*3/uL Normal 0.0-0.1 [facility]; [facility] Work Phone: Comment on above: PATIENT WAS FASTINGP ERFORMED BY: Lab[address] [id number] BY: [facility] Euupgi3190 Walker RoadDublin [place] [id number]; OV 7 Immature granulocytes/100 WBC (Bld) 0 % Normal [facility] Work Phone: Comment on above: PATIENT WAS FASTINGP ERFORMED BY: Lab[address] [id number] BY: CB [facility] Xrkphz8884 Walker RoadDublin [place] [id number]; OV 7 Lymphocytes (Bld) [#/Vol] 3.2 {x10E3/uL} Abnormal 0.7-3.1 [facility] Work Phone: Comment on above: PATIENT WAS FASTINGP ERFORMED BY: [address] [id number] BY: [facility] Bfldic6133 [address] RoadDublin [place] [id number]; OV 04/12/18 Lymphocytes (Bld) [#/Vol] 3.2 10*3/uL Abnormal 0.7-3.1 [facility]; [facility] Work Phone: Comment on above: PATIENT WAS FASTINGP ERFORMED BY: [address] [id number] BY: [facility] Ttmflw9077 Walker RoadDublin [place] [id number]; OV 718 Lymphocytes/100 WBC (Bld) 31 % Normal [facility] Work Phone: Comment on above: PATIENT WAS FASTINGP ERFORMED BY: Lab[address] [id number] BY: CB [facility] Oqegvj0292 Walker RoadDublin [place] [id number]; OV 718 MCH (RBC) [Entitic mass] 31.7 pg Normal 26.6-33.0 [facility] Work Phone: Comment on above: PATIENT WAS FASTINGP ERFORMED BY: Lab[address] [id number] BY: [facility] Untiya0605 Walker RoadDublin [place] [id number]; OV 04/12/18 MCHC (RBC) [Mass/Vol] 33.6 g/dL Normal 31.5-35.7 [facility] Work Phone: Comment on above: PATIENT WAS FASTINGP ERFORMED BY: Lab[address] [id number] BY: [facility] Twntdb2800 Wak[address] RoadDublin [place] [id number]; OV 04/12/18 MCV (RBC) [Entitic vol] 95 fL Normal 79-97 [facility] Work Phone: Comment on above: PATIENT WAS FASTINGP ERFORMED BY: [address] [id number] BY: [facility] Flyrdi6036 Walker RoadDublin [place] [id number]; OV 04/12/18 Monocytes (Bld) [#/Vol] 0.5 {x10E3/uL} Normal 0.1-0.9 [facility] Work Phone: Comment on above: PATIENT WAS FASTINGP ERFORMED BY: Lab[address] [id number] BY: LabAscension Standish Hospital6370 [address] RoadDublin [place] [id number]; OV 04/12/18 Monocytes (Bld) [#/Vol] 0.5 10*3/uL Normal 0.1-0.9 [facility]; [facility] Work Phone: Comment on above: PATIENT WAS FASTINGP ERFORMED BY: [address] [id number] BY: [facility] Glvdtu8580 Walker RoadDublin [place] [id number]; OV 7/18 Monocytes/100 WBC (Bld) 5 % Normal [facility] Work Phone: Comment on above: PATIENT WAS FASTINGP ERFORMED BY: Lab[address] [id number] BY: [facility] Cimhvc7331 [address] RoadDublin [place] [id number]; OV 718 Neutrophils (Bld) [#/Vol] 6.5 {x10E3/uL} Normal 1.4-7.0 [facility] Work Phone: Comment on above: PATIENT WAS FASTINGP ERFORMED BY: Lab[address] [id number] BY: [facility] Rllrot1847 [address] RoadDublin [place] [id number]; OV 718 Neutrophils (Bld) [#/Vol] 6.5 10*3/uL Normal 1.4-7.0 [facility]; [facility] Work Phone: Comment on above: PATIENT WAS FASTINGP ERFORMED BY: Lab[address] [id number] BY: [facility] Obwmti4[address] [facility] HospitalD[facility] [place] [id number]; OV 7/18 Neutrophils/100 WBC (Bld) 62 % Normal [facility] Work Phone: Comment on above: PATIENT WAS FASTINGP ERFORMED BY: Lab[address] [id number] BY: [facility] Pzsijt8428 [address] Roadblin [place] [id number]; OV 718 Platelets (Bld) [#/Vol] 387 {x10E3/uL} Abnormal 150-379 [facility] Work Phone: Comment on above: PATIENT WAS FASTINGP ERFORMED BY: [address] [id number] BY: LabAscension Standish Hospital6[address] [facility] [id number]; OV 04/12/18 Platelets (Bld) [#/Vol] 387 10*3/uL Abnormal 150-379 [facility]; [facility] Work Phone: Comment on above: PATIENT WAS FASTINGP ERFORMED BY: [address] [id number] BY: LabCoAbigail [place] 1876270 [address] [facility] [id number]; OV 04/12/18 RBC (Bld) [#/Vol] 4.60 {x10E6/uL} Normal 3.77-5.[address] instituteensive Internal [facility] Work Phone: Comment on above: PATIENT WAS FASTINGP ERFORMED BY: [address] [id number] BY: LabRobert [place] 4242670 [facility] [id number]; OV 04/12/18 RBC (Bld) [#/Vol] 4.60 10*6/uL Normal 3.77-5.28 Compr ensive Internal Medicine; [facility] Work Phone: Comment on above: PATIENT WAS FASTINGP ERFORMED BY: [address] [id number] BY: LabRobert [place] 42426[address] [facility] [id number]; OV 04/12/18 WBC (Bld) [#/Vol] 10.5 {x10E3/uL} Normal 3.4-10.8 Co [facility] Internal Medicine Work Phone: Comment on above: PATIENT WAS FASTINGP ERFORMED BY: [address] [id number] BY: LabRobert [place] 42426[address] [facility] [id number]; OV 7 WBC (Bld) [#/Vol] 10.5 10*3/uL Normal 3.4-10.8 Compr ensive Internal Medicine; [facility] Work Phone: Comment on above: PATIENT WAS FASTINGP ERFORMED BY: [facility] Kugedykyww[address] [id number] BY: [facility] Xzqtfb2703 [facility] [id number]; OV 04/12/18 LIPOPROTEIN, BLD, BY NMR (59 434)Ordered By: Wine Steward on 04-05-2018 Cholesterol [Mass/Vol] 176 mg/dL Normal 100-199 [facility] Work Phone: Comment on above: PATIENT WAS FASTINGP ERFORMED BY: Barnebys[address] [id number] BY: LabCoSt. Mary's HospitalAnlnpn0454 [facility] [id number] Cholesterol in HDL [Mass/Vol] 61 mg/dL Normal [facility] Work Phone: Comment on above: PATIENT WAS FASTINGP ERFORMED BY: Barnebys[address] [id number] BY: LabAscension Stand[facility] Hospital6370 [facility] [id number] Cholesterol in LDL [Mass/Vol] 96 mg/dL Normal 0-99 [facility] Work Phone: Comment on above: . Optimal < 100 Abov e optimal 100 - 129 Borderline 130 - 159 High 160 - 189 Very high > 189 .LDL-C is inaccurate if patient is non-fasting. PATIENT WAS FASTINGP ERFORMED BY: Barnebys[address] [id number] BY: [facility] Lanowx9102 [facility] [id number] Lipoprotein.alpha [Moles/Vol] 38.5 umol/L Normal [facility] Work Phone: Comment on above: PATIENT WAS FASTINGP ERFORMED BY: Barnebys[address] [id number] BY: [facility] Knuxid8[address] [facility] [id number] Lipoprotein.beta.sub particle [Entitic length] 21.0 nm Normal [facility] Work Phone: Comment on above: INTERPRETATIVE INFORMATION PARTICLE CONCENTRATION AND SIZE <--Lower CVD Risk Higher CVD Risk--> LDL AND HDL PARTICLES Percentile in Reference Population HDL-P (total) High 75th 50th 25th Low >34.9 34.9 30.5 26.7 <26.7 . Small LDL-P Low 25th 50th 75th High <117 117 527 839 >839 . LDL Size <-Large (Pattern A)-> <-Small (Pattern B)-> 23.0 20.6 20.5 19.0 Small LDL-P and LDL Size are associated with CVD risk, but not afterLDL-P is taken into account. .These assays were developed and their performance characteristicsdetermined by [employer]. These assays have not been cleared by [employer] Food and Drug Administration. The clinical utility of theselaboratory values have not been fully established. PATIENT WAS FASTINGP ERFORMED BY: [employer] [facility] [id number] BY: SnapMyAd70 [facility] [id number] Lipoprotein.beta.sub particle [Moles/Vol] 1120 nmol/L Abnormal Comprehensi Internal Medicine Work Phone: Comment on above: Low < 1000 Moderate 1000 - 1299 Borderline-High 1300 - 1599 High 1600 - 2000 Very High > 2000 PATIENT WAS FASTINGP ERFORMED BY: [employer] Mediaton1447 [facility] [id number] BY: [employer] [facility] [id number] Lipoprotein.beta.sub particle.small [Moles/Vol] 450 nmol/L Normal [facility] Work Phone: Comment on above: PATIENT WAS FASTINGP ERFORMED BY: Lab[address] [id number] BY: [facility] Ggjrcc27[address] [facility] [id number] Triglyceride [Mass/Vol] 96 mg/dL Normal 0-149 [facility] Work Phone: Comment on above: PATIENT WAS FASTINGP ERFORMED BY: Lab[address] [id number] BY: [facility] Yfhldl1280 [facility] [id number] METABOLIC PANEL, COMPREHENSI VE ([id number])Ordered By: Wine Steward on 04-05-2018 Albumin [Mass/Vol] 4.7 g/dL Normal 3.6-4.8 [facility] Internal Medicine Work Phone: Comment on above: PATIENT WAS FASTINGP ERFORMED BY: [address] [id number] BY: [facility] Umcjpy0692 [facility] [id number] Albumin/Globulin [Mass ratio] 1.7 {ratio} Normal 1.2-2.2 [facility] Work Phone: Comment on above: PATIENT WAS FASTINGP ERFORMED BY: [address] [id number] BY: [facility] Muykhg0370 [address] [facility] [id number] ALP [Catalytic activity/Vol] 71 [iU]/L Normal 39-117 [facility] Work Phone: Comment on above: PATIENT WAS FASTINGP ERFORMED BY: [address] [id number] BY: [facility] Fadrhs6394 Walker RoadDublin [place] [id number] ALP [Catalytic activity/Vol] 71 U/L Normal 39-117 [facility]; [facility] Work Phone: Comment on above: PATIENT WAS FASTINGP ERFORMED BY: LabCo[address] [id number] BY: [facility] Ovngjn9289 Walker RoadDublin [place] [id number] ALT [Catalytic activity/Vol] 15 [iU]/L Normal 0-32 [facility] Work Phone: Comment on above: PATIENT WAS FASTINGP ERFORMED BY: [address] [id number] BY: [facility] Gdbczf8480 Walker RoadDublin [place] [id number] ALT [Catalytic activity/Vol] 15 U/L Normal 0-32 [facility]; [facility] Work Phone: Comment on above: PATIENT WAS FASTINGP ERFORMED BY: [address] [id number] BY: [facility] Wqyjff3771 Walker RoadDublin [place] [id number] AST [Catalytic activity/Vol] 20 [iU]/L Normal 0-40 [facility] Work Phone: Comment on above: PATIENT WAS FASTINGP ERFORMED BY: [address] [id number] BY: [facility] Dpiqip4477 [address] RoadDublin [place] [id number] AST [Catalytic activity/Vol] 20 U/L Normal 0-40 [facility]; [facility] Work Phone: Comment on above: PATIENT WAS FASTINGP ERFORMED BY: [address] [id number] BY: CB [facility] Sthnps0306 Walker RoadDublin [place] [id number] Bilirubin [Mass/Vol] 0.5 mg/dL Normal 0.0-1.2 Comp rehensive Internal Medicine Work Phone: Comment on above: PATIENT WAS FASTINGP ERFORMED BY: BN [facility] Vhhakxqomt5580 [facility] [id number] BY: CB [facility] Kjqscy4186 Walker RoadDublin [place] [id number] Calcium [Mass/Vol] 9.6 mg/dL Normal 8.7-10.3 [facility] Internal Medicine Work Phone: Comment on above: PATIENT WAS FASTINGP ERFORMED BY: BN [facility] Nrdftqjvkk16[address] [id number] BY: CB [facility] Dcgwwh1232 Walker RoadDublin [place] [id number] Chloride [Moles/Vol] 103 mmol/L Normal 96-106 [facility] Work Phone: Comment on above: PATIENT WAS FASTINGP ERFORMED BY: BN [facility] [address] [id number] BY: CB [facility] Szykmi5061 Walker RoadHugh Chatham Memorial Hospitalin [place] [id number] CO2 [Moles/Vol] 20 mmol/L Normal 20-29 [facility] Internal Medicine Work Phone: Comment on above: PATIENT WAS FASTINGP ERFORMED BY: [facility] Fuhgkdbyia3325 [facility] [id number] BY: CB [facility] Ynjmdk2266 [address] Roadblin [place] [id number] Creatinine [Mass/Vol] 0.63 mg/dL Normal 0.57-1.00 [facility] Work Phone: Comment on above: PATIENT WAS FASTINGP ERFORMED BY: [facility] [address] [id number] BY: CB [facility] Bkqkzg7976 Walker Roadblin [place] [id number] GFR/1.73 sq M predicted among blacks CKD-EPI (S/P/Bld) [Vol rate/Area] 111 mL/min/1.73 Normal [facility] Work Phone: Comment on above: PATIENT WAS FASTINGP ERFORMED BY: Barnebys[address] [id number] BY: [facility] Kcapwo2252 [address] Roadblin [place] [id number] GFR/1.73 sq M predicted among non-blacks CKD-EPI (S/P/Bld) [Vol rate/Area] 96 mL/min/1.73 Normal [facility] Work Phone: Comment on above: PATIENT WAS FASTINGP ERFORMED BY: [facility] [employer] [id number] BY: [facility] Ovhaee1334 [address] [facility]in [place] [id number] Globulin (S) [Mass/Vol] 2.8 g/dL Normal 1.5-4.5 [facility] Work Phone: Comment on above: PATIENT WAS FASTINGP ERFORMED BY: Barnebys[address] [id number] BY: [facility] Jidels4161 [address] [facility]in [place] [id number] Glucose [Mass/Vol] 96 mg/dL Normal 65-99 [facility] Internal Medicine Work Phone: Comment on above: PATIENT WAS FASTINGP ERFORMED BY: Barnebys[address] [id number] BY: [facility] Hibwbz3353 [address] [facility]in [place] [id number] Potassium [Moles/Vol] 4.3 mmol/L Normal 3.5-5.2 [facility] Work Phone: Comment on above: PATIENT WAS FASTINGP ERFORMED BY: [address] [id number] BY: [facility] Upwuep0208 [address] [facility] HospitalDublin [place] [id number] Protein [Mass/Vol] 7.5 g/dL Normal 6.0-8.5 [facility] Internal Medicine Work Phone: Comment on above: PATIENT WAS FASTINGP ERFORMED BY: [facility] Lbqajyuerj6110 [facility] [id number] BY: TRESSA [facility] Qnfnkl6922 [address] RoadDublin [place] [id number] Sodium [Moles/Vol] 142 mmol/L Normal 134-144 [facility] Internal Medicine Work Phone: Comment on above: PATIENT WAS FASTINGP ERFORMED BY: [facility] Kcxamdyaux5621 [facility] [id number] BY: TRESSA [facility] Gdxclb0547 [address] RoadDublin [place] [id number] Urea nitrogen [Mass/Vol] 14 mg/dL Normal 8-27 [facility] Work Phone: Comment on above: PATIENT WAS FASTINGP ERFORMED BY: TIFFANIE LabCo[address] [id number] BY: TRESSA [facility] Ulyttz3087 [address] RoadDublin [place] [id number] Urea nitrogen/Creatinine [Mass ratio] 22 mg/mg Normal 12-28 [facility] Work Phone: Comment on above: PATIENT WAS FASTINGP ERFORMED BY: [address] [id number] BY: TRESSA [facility] Icuqlw0601 [address] RoadDublin [place] [id number] MICROALBUMINOrdered By: [employer] Deburrer on 04-05-2018 Albumin DL <= 20 mg/L (U) [Mass/Vol] mg/dL Normal Comprehensiv e Internal Medicine Work Phone: Comment on above: PATIENT WAS FASTINGP ERFORMED BY: LabCo[address] [id number] BY: TRESSA [facility] Buttao7230 [address] RoadDublin [place] [id number] Albumin DL <= 20 mg/L (U) [Mass/Vol] mg/dL Normal Comprehensiv e Internal Medicine; [facility] Work Phone: Comment on above: PATIENT WAS FASTINGP ERFORMED BY: LabCo[address] [id number] BY: TRESSA [facility] Xuwzky6832 Walker RoadHugh Chatham Memorial Hospitalin [place] [id number] Albumin/Creatinine (U) [Mass ratio] <5.8 Normal 0.0-30.0 [facility] Work Phone: Comment on above: PATIENT WAS FASTINGP ERFORMED BY: [facility]Co[address] [id number] BY: [facility] Hyaquo7978 [address] [facility] [id number] Creatinine (U) [Mass/Vol] 51.5 mg/dL Normal [facility] Work Phone: Comment on above: PATIENT WAS FASTINGP ERFORMED BY: [address] [id number] BY: TRESSA [facility] Ujnoct6765 [address] [facility] [id number] Microscopic ExaminationOrder ed By: Wine Steward on 04-05-2018 Bacteria LM.HPF (Urine sed) [#/Area] None seen Normal Comprehensi ve Internal Medicine Work Phone: Comment on above: PATIENT WAS FASTINGP ERFORMED BY: [address] [id number] BY: TRESSA [facility] Nhaier1036 [address] [facility] [id number] Epithelial cells LM.HPF (Urine sed) [#/Area] 0-10 Normal 0 - 10 [facility] Work Phone: Comment on above: PATIENT WAS FASTINGP ERFORMED BY: [address] [id number] BY: [facility] Fvaudg4272 [address] [facility] [id number] Mucus Ql (Urine sed) Present Normal Comp rehensive Internal Medicine Work Phone: Comment on above: PATIENT WAS FASTINGP ERFORMED BY: [address] [id number] BY: CB [facility] Epmsnk2344 [address] RoadDublin [place] [id number] RBC LM.HPF (Urine sed) [#/Area] 0-2 Normal 0 - 2 [facility] Work Phone: Comment on above: PATIENT WAS FASTINGP ERFORMED BY: LabCo[address] [id number] BY: TRESSA [facility] Ebtsem4720 [address] RoadDublin [place] [id number] WBC LM.HPF (Urine sed) [#/Area] 0-5 Normal 0 - 5 [facility] Work Phone: Comment on above: PATIENT WAS FASTINGP ERFORMED BY: [address] [id number] BY: TRESSA [facility] Zozjkj3298 [address] RoadDublin [place] [id number] TSH ([id number])Ordered By: SageQuestmarianne m [employer] Deburrer on 04-05-2018 TSH Qn 1.210 {uIU/mL} Normal 0.450-4.50 0 [facility] Work Phone: Comment on above: PATIENT WAS FASTINGP ERFORMED BY: [address] [id number] BY: TRESSA LabNortheast Regional Medical CenterVwoebq2060 [address] RoadDublin [place] [id number] URINALYSIS, W/ MICRO ([id number]) Ordered By: Wine Steward on 04-05-2018 Appearance (U) Clear Normal Comprehens yelena Internal Medicine Work Phone: Comment on above: PATIENT WAS FASTINGP ERFORMED BY: [address] [id number] BY: [facility] Tfpkhb2469 [address] RoadDublin [place] [id number] Bilirubin Ql (U) Negative Normal Comprehe nsive Internal Medicine Work Phone: Comment on above: PATIENT WAS FASTINGP ERFORMED BY: [address] [id number] BY: TRESSA [facility] Zdrczr9225 [address] RoadDublin [place] [id number] Bilirubin Ql (U) Negative Normal Comprehe nsive Internal Medicine; [facility] Work Phone: Comment on above: PATIENT WAS FASTINGP ERFORMED BY: [facility] [address] [id number] BY: TRESSA [facility] Ojeauc6596 [address] RoadDublin [place] [id number] Color (U) Yellow Normal [facility] Work Phone: Comment on above: PATIENT WAS FASTINGP ERFORMED BY: LabMdrp [address] [id number] BY: TRESSA [facility] Vzvmrj4712 [address] RoadDublin [place] [id number] Glucose Ql (U) Negative Normal Comprehens yelena Internal Medicine Work Phone: Comment on above: PATIENT WAS FASTINGP ERFORMED BY: [facility] [address] [id number] BY: TRESSA [facility] Brzuuw4805 Walker RoadDublin [place] [id number] Glucose Ql (U) Negative Normal Comprehens yelena Internal Medicine; [facility] Work Phone: Comment on above: PATIENT WAS FASTINGP ERFORMED BY: [address] [id number] BY: TRESSA [facility] Kqaqxs2877 [address] RoadDublin [place] [id number] Hemoglobin Ql (U) Negative Normal Compreh ensive Internal Medicine Work Phone: Comment on above: PATIENT WAS FASTINGP ERFORMED BY: [address] [id number] BY: TRESSA [facility] Wnxolz7873 [address] RoadDublin [place] [id number] Hemoglobin Ql (U) Negative Normal Compreh ensive Internal Medicine; [facility] Work Phone: Comment on above: PATIENT WAS FASTINGP ERFORMED BY: LabCo[address] [id number] BY: [facility] Iqowss2964 [address] RoadDublin [place] [id number] Ketones Ql (U) Negative Normal Comprehens yelena Internal Medicine Work Phone: Comment on above: PATIENT WAS FASTINGP ERFORMED BY: [facility] [address] [id number] BY: [facility] Irbbka3836 [address] RoadDublin [place] [id number] Ketones Ql (U) Negative Normal Comprehens yelena Internal Medicine; [facility] Work Phone: Comment on above: PATIENT WAS FASTINGP ERFORMED BY: [address] [id number] BY: [facility] Frsdwv2554 [address] RoadDublin [place] [id number] Leukocyte esterase Test strip Ql (U) Negative Normal [facility] Work Phone: Comment on above: PATIENT WAS FASTINGP ERFORMED BY: [address] [id number] BY: [facility] Zitgfn6751 [address] RoadDublin [place] [id number] Leukocyte esterase Test strip Ql (U) Negative Normal [facility]; [facility] Work Phone: Comment on above: PATIENT WAS FASTINGP ERFORMED BY: LabCo[address] [id number] BY: [facility] Mjhmwz7898 [address] RoadDublin [place] [id number] Microscopic observation LM Nom (Urine sed) MICRON Normal [facility] Work Phone: Comment on above: Microscopic follows if indicated. PATIENT WAS FASTINGP ERFORMED BY: [facility] [address] [id number] BY: CB [facility] Exrajk0391 Walker RoadDublin [place] [id number] Microscopic observation LM Nom (Urine sed) See below: Normal [facility] Work Phone: Comment on above: Microscopic was radha cated and was performed. PATIENT WAS FASTINGP ERFORMED BY: LabCo[address] [id number] BY: TRESSA [facility] Ljsdnq0386 [address] RoadDublin [place] [id number] Nitrite Ql (U) Negative Normal Comprehens yelena Internal Medicine Work Phone: Comment on above: PATIENT WAS FASTINGP ERFORMED BY: [facility] [address] [id number] BY: TRESSA [facility] Vwztof6182 [address] RoadDublin [place] [id number] Nitrite Ql (U) Negative Normal Comprehens yelena Internal Medicine; [facility] Work Phone: Comment on above: PATIENT WAS FASTINGP ERFORMED BY: Lab[address] [id number] BY: TRESSA [facility] Ozghsd0294 [address] RoadDublin [place] [id number] pH (U) 5.5 [pH] Normal 5.0-7.5 [facility] Work Phone: Comment on above: PATIENT WAS FASTINGP ERFORMED BY: [address] [id number] BY: TRESSA [facility] Zqywiq3970 [address] RoadDublin [place] [id number] Protein Ql (U) Negative Normal Comprehens yelena Internal Medicine Work Phone: Comment on above: PATIENT WAS FASTINGP ERFORMED BY: [address] [id number] BY: TRESSA [facility] Bcvgqn9119 [address] RoadDublin [place] [id number] Protein Ql (U) Negative Normal Comprehens yelena [facility] Medicine; [facility] Work Phone: Comment on above: PATIENT WAS FASTINGP ERFORMED BY: [address] [id number] BY: TRESSA [facility] Ogpfca4878 [address] RoadDublin [place] [id number] Specific gravity (U) [Rel density] 1.012 1 Normal 1.005-1.03 0 [facility] Work Phone: Comment on above: PATIENT WAS FASTINGP ERFORMED BY: [address] [id number] BY: [facility] Xbssee2022 [address] RoadDublin [place] [id number] Urobilinogen (U) [Mass/Vol] 0.2 mg/dL Normal 0.2-1.0 [facility]; [facility] Work Phone: Comment on above: PATIENT WAS FASTINGP ERFORMED BY: Lab[address] [id number] BY: [facility] Hmezxv4019 [address] [facility]in [place] [id number] Urobilinogen Test strip (U) [Mass/Vol] 0.2 mg/dL Normal 0.2-1.0 Comprehensi Internal Medicine Work Phone: Comment on above: PATIENT WAS FASTINGP ERFORMED BY: [address] [id number] BY: [facility] Zvrwxe8944 [address] [facility]in [place] [id number] METABOLIC PANEL, COMPREHENSI VE ([id number])Ordered By: Wine Steward on 09-19-2017 Albumin [Mass/Vol] 4.9 g/dL Abnormal 3.6-4.8 [facility] Internal Medicine Work Phone: Comment on above: PATIENT NOT FASTINGP ERFORMED BY: [facility] Erbsrz3006 [address] RoadDublin [place] [id number] Albumin/Globulin [Mass ratio] 1.7 {ratio} Normal 1.2-2.2 [facility] Work Phone: Comment on above: PATIENT NOT FASTINGP ERFORMED BY: [facility] Leqlim2026 [address] RoadDublin [place] [id number] ALP [Catalytic activity/Vol] 78 [iU]/L Normal 39-117 [facility] Work Phone: Comment on above: PATIENT NOT FASTINGP ERFORMED BY: TRESSA LabColili Goyonv3417 [address] RoadDublin [place] [id number] ALP [Catalytic activity/Vol] 78 U/L Normal 39-117 [facility]; [facility] Work Phone: Comment on above: PATIENT NOT FASTINGP ERFORMED BY: TRESSA HarrisColili RodriguezLtgmwp9978 [address] RoadDublin [place] [id number] ALT [Catalytic activity/Vol] 16 [iU]/L Normal 0-32 [facility] Work Phone: Comment on above: PATIENT NOT FASTINGP ERFORMED BY: TRESSA Rodriguezlin6370 [address] RoadDublin [place] [id number] ALT [Catalytic activity/Vol] 16 U/L Normal 0-32 [facility]; [facility] Work Phone: Comment on above: PATIENT NOT FASTINGP ERFORMED BY: TRESSA Rodriguezlin6370 [address] RoadDublin [place] [id number] AST [Catalytic activity/Vol] 24 [iU]/L Normal 0-40 [facility] Work Phone: Comment on above: PATIENT NOT FASTINGP ERFORMED BY: TRESSA Rodriguezlin6370 [address] RoadDublin [place] [id number] AST [Catalytic activity/Vol] 24 U/L Normal 0-40 [facility]; [facility] Work Phone: Comment on above: PATIENT NOT FASTINGP ERFORMED BY: TRESSA Rodriguezlin6370 [address] RoadDublin [place] [id number] Bilirubin [Mass/Vol] 0.4 mg/dL Normal 0.0-1.2 Comp [facility] Internal Medicine Work Phone: Comment on above: PATIENT NOT FASTINGP ERFORMED BY: TRESSA Baron Nbkvbj1204 [address] RoadDublin [place] [id number] Calcium [Mass/Vol] 9.8 mg/dL Normal 8.7-10.3 [facility] Internal Medicine Work Phone: Comment on above: PATIENT NOT FASTINGP ERFORMED BY: CB [facility] Ohutov7317 [address] RoadDublin [place] [id number] Chloride [Moles/Vol] 102 mmol/L Normal 96-106 Comp summa healthensive Internal Medicine Work Phone: Comment on above: PATIENT NOT FASTINGP ERFORMED BY: CB [facility] Xqjssm5325 [address] RoadDublin [place] [id number] CO2 [Moles/Vol] 23 mmol/L Normal 18-29 Com[facility]hen [facility] Internal [facility] Work Phone: Comment on above: PATIENT NOT FASTINGP ERFORMED BY: CB [facility] Iaegzw4191 [address] RoadDublin [place] [id number] Creatinine [Mass/Vol] 0.61 mg/dL Normal 0.57-1.00 [facility] Work Phone: Comment on above: PATIENT NOT FASTINGP ERFORMED BY: CB [facility] Ruyheq5342 [address] RoadDublin [place] [id number] GFR/1.73 sq M predicted among blacks CKD-EPI (S/P/Bld) [Vol rate/Area] 112 mL/min/1.73 Normal [facility] Work Phone: Comment on above: PATIENT NOT FASTINGP ERFORMED BY: CB [facility] Meckqe3084 [address] RoadDublin [place] [id number] GFR/1.73 sq M predicted among non-blacks CKD-EPI (S/P/Bld) [Vol rate/Area] 97 mL/min/1.73 Normal [facility] Work Phone: Comment on above: PATIENT NOT FASTINGP ERFORMED BY: CB [facility] Ztsplh8317 [address] RoadDublin [place] [id number] Globulin (S) [Mass/Vol] 2.9 g/dL Normal 1.5-4.5 [facility] Work Phone: Comment on above: PATIENT NOT FASTINGP ERFORMED BY: CB [facility] Tukzuk5712 [address] RoadDublin [place] [id number] Glucose [Mass/Vol] 93 mg/dL Normal 65-99 [facility] Internal Medicine Work Phone: Comment on above: PATIENT NOT FASTINGP ERFORMED BY: TRESSA [facility] Aynucg8969 [address] RoadDublin [place] [id number] Potassium [Moles/Vol] 4.4 mmol/L Normal 3.5-5.2 [facility] Work Phone: Comment on above: PATIENT NOT FASTINGP ERFORMED BY: CB [facility] Myerfj0009 [address] RoadDublin [place] [id number] Protein [Mass/Vol] 7.8 g/dL Normal 6.0-8.5 [facility] Internal Medicine Work Phone: Comment on above: PATIENT NOT FASTINGP ERFORMED BY: TRESSA [facility] Ftkgwz6488 [address] RoadDublin [place] [id number] Sodium [Moles/Vol] 145 mmol/L Abnormal 134-144 [facility] Internal Medicine Work Phone: Comment on above: PATIENT NOT FASTINGP ERFORMED BY: CB [facility] Iodagz4800 [address] RoadDublin [place] [id number] Urea nitrogen [Mass/Vol] 15 mg/dL Normal 8-27 [facility] Work Phone: Comment on above: PATIENT NOT FASTINGP ERFORMED BY: TRESSA [facility] Nucljw2178 [address] RoadDublin [place] [id number] Urea nitrogen/Creatinine [Mass ratio] 25 mg/mg Normal 12- [facility] Work Phone: Comment on above: PATIENT NOT FASTINGP ERFORMED BY: CB [facility] Sjrhhp1341 [address] RoadDublin [place] [id number] TSH ([id number])Ordered By: Temi Orourke on 09-19-2017 TSH Qn 0.797 {uIU/mL} Normal 0.450-4.50 0 [facility] Work Phone: Comment on above: PATIENT NOT FASTINGP ERFORMED BY: CB [facility] Znbunr6788 [address] RoadDublin [place] [id number] HgA1C , Office ([id number])Ordere d By: Alec Ureña on 12-28-2016 HbA1c (Bld) [Mass fraction] 5.6 % Normal 4.6 - 7.1 [facility] Work Phone: CBC, PLATELETS & AUT DIFF (1 [phone])Ordered By: Wine Steward on 12-21-2016 Basophils (Bld) [#/Vol] 0.1 {x10E3/uL} Normal 0.0-0.2 [facility] Work Phone: Comment on above: PATIENT WAS FASTINGP ERFORMED BY: CB [facility] Xoqxwd3196 [address] RoadDublin [place] [id number] Basophils (Bld) [#/Vol] 0.1 10*3/uL Normal 0.0-0.2 [facility]; [facility] Work Phone: Comment on above: PATIENT WAS FASTINGP ERFORMED BY: [facility] Pbcbcs8736 [address] RoadDublin [place] [id number] Basophils/100 WBC (Bld) 1 % Normal [facility] Work Phone: Comment on above: PATIENT WAS FASTINGP ERFORMED BY: [facility] Phlbyb3320 [address] RoadDublin [place] [id number] Eosinophils (Bld) [#/Vol] 0.3 {x10E3/uL} Normal 0.0-0.4 [facility] Work Phone: Comment on above: PATIENT WAS FASTINGP ERFORMED BY: [facility] Wktjrw6438 [address] RoadDublin [place] [id number] Eosinophils (Bld) [#/Vol] 0.3 10*3/uL Normal 0.0-0.4 [facility]; [facility] Work Phone: Comment on above: PATIENT WAS FASTINGP ERFORMED BY: CB [facility] Uwwjyd5543 [address] RoadDublin [place] [id number] Eosinophils/100 WBC (Bld) 4 % Normal [facility] Work Phone: Comment on above: PATIENT WAS FASTINGP ERFORMED BY: CB [facility] Zrhxjo4347 [address] RoadDublin [place] [id number] Erythrocyte distribution width (RBC) [Ratio] 12.8 % Normal 12.3-15.4 [facility] Work Phone: Comment on above: PATIENT WAS FASTINGP ERFORMED BY: TRESSA LabColili MilesPxautl2055 [address] [facility]in [place] [id number] Hematocrit (Bld) [Volume fraction] 45.4 % Normal 34.0-46.6 [facility] Work Phone: Comment on above: PATIENT WAS FASTINGP ERFORMED BY: [facility] Wkpvsd7427 [address] [facility] [id number] Hemoglobin (Bld) [Mass/Vol] 15.2 g/dL Normal 11.1-15.9 [facility] Work Phone: Comment on above: PATIENT WAS FASTINGP ERFORMED BY: TRESSA Isrrael Lgqhpd9070 [address] [facility] [id number] Immature granulocytes (Bld) [#/Vol] 0.0 {x10E3/uL} Normal 0.0-0.1 [facility] Work Phone: Comment on above: PATIENT WAS FASTINGP ERFORMED BY: [facility] Zbdtff4250 [address] [facility] [id number] Immature granulocytes (Bld) [#/Vol] 0.0 10*3/uL Normal 0.0-0.1 [facility]; [facility] Work Phone: Comment on above: PATIENT WAS FASTINGP ERFORMED BY: [facility] Mruscg9500 [address] [facility]in [place] [id number] Immature granulocytes/100 WBC (Bld) 0 % Normal [facility] Work Phone: Comment on above: PATIENT WAS FASTINGP ERFORMED BY: [facility] Ucctrv9889 [address] [facility]bl[facility] [place] [id number] Lymphocytes (Bld) [#/Vol] 2.4 {x10E3/uL} Normal 0.7-3.1 [facility] Work Phone: Comment on above: PATIENT WAS FASTINGP ERFORMED BY: [facility] Cfrehw4810 [address] Roadblin [place] [id number] Lymphocytes (Bld) [#/Vol] 2.4 10*3/uL Normal 0.7-3.1 [facility]; [facility] Work Phone: Comment on above: PATIENT WAS FASTINGP ERFORMED BY: TRESSA [facility] Nshdhh0761 [address] Roadblin [place] [id number] Lymphocytes/100 WBC (Bld) 32 % Normal [facility] Work Phone: Comment on above: PATIENT WAS FASTINGP ERFORMED BY: [facility] Ycmkpd0165 Walker RoadHugh Chatham [facility] Hospitalin [place] [id number] MCH (RBC) [Entitic mass] 32.8 pg Normal 26.6-33.0 [facility] Work Phone: Comment on above: PATIENT WAS FASTINGP ERFORMED BY: TRESSA [facility] Lmwkre4056 [address] [facility] [place] [id number] MCHC (RBC) [Mass/Vol] 33.5 g/dL Normal 31.5-35.7 [facility] Work Phone: Comment on above: PATIENT WAS FASTINGP ERFORMED BY: TRESSA [facility] Hgnojj5231 [address] [facility] [place] [id number] MCV (RBC) [Entitic vol] 98 fL Abnormal 79-97 [facility] Work Phone: Comment on above: PATIENT WAS FASTINGP ERFORMED BY: TRESSA [facility] Vsliqw7182 [address] [facility] [place] [id number] Monocytes (Bld) [#/Vol] 0.5 {x10E3/uL} Normal 0.1-0.9 [facility] Work Phone: Comment on above: PATIENT WAS FASTINGP ERFORMED BY: [facility] Gasmpi1621 Walker RoadDublin [place] [id number] Monocytes (Bld) [#/Vol] 0.5 10*3/uL Normal 0.1-0.9 [facility]; [facility] Work Phone: Comment on above: PATIENT WAS FASTINGP ERFORMED BY: [facility] Bdjvvw9819 Walker RoadDublin [place] [id number] Monocytes/100 WBC (Bld) 6 % Normal [facility] Work Phone: Comment on above: PATIENT WAS FASTINGP ERFORMED BY: CB [facility] Nmuzxp4226 [address] RoadDublin [place] [id number] Neutrophils (Bld) [#/Vol] 4.2 {x10E3/uL} Normal 1.4-7.0 [facility] Work Phone: Comment on above: PATIENT WAS FASTINGP ERFORMED BY: CB [facility] Gjabze7907 [address] RoadDublin [place] [id number] Neutrophils (Bld) [#/Vol] 4.2 10*3/uL Normal 1.4-7.0 [facility]; [facility] Work Phone: Comment on above: PATIENT WAS FASTINGP ERFORMED BY: CB [facility] Dbyxeg1695 [address] RoadDublin [place] [id number] Neutrophils/100 WBC (Bld) 57 % Normal [facility] Work Phone: Comment on above: PATIENT WAS FASTINGP ERFORMED BY: CB [facility] Wjgyrg7527 [address] RoadDublin [place] [id number] Platelets (Bld) [#/Vol] 385 {x10E3/uL} Abnormal 150-379 [facility] Work Phone: Comment on above: PATIENT WAS FASTINGP ERFORMED BY: CB [facility] Kkwrnv3317 [address] RoadDublin [place] [id number] Platelets (Bld) [#/Vol] 385 10*3/uL Abnormal 150-379 [facility]; [facility] Work Phone: Comment on above: PATIENT WAS FASTINGP ERFORMED BY: CB [facility] Hsnchf5268 [address] RoadDublin [place] [id number] RBC (Bld) [#/Vol] 4.63 {x10E6/uL} Normal 3.77-5.28 [facility] Internal Medicine Work Phone: Comment on above: PATIENT WAS FASTINGP ERFORMED BY: CB [facility] Kvagcc3552 Walker RoadDublin [place] [id number] RBC (Bld) [#/Vol] 4.63 10*6/uL Normal 3.77-5.28 [facility]; [facility] Work Phone: Comment on above: PATIENT WAS FASTINGP ERFORMED BY: TRESSA Loraine Miles6370 [facility] [id number] WBC (Bld) [#/Vol] 7.4 {x10E3/uL} Normal 3.4-10.8 [facility] Work Phone: Comment on above: PATIENT WAS FASTINGP ERFORMED BY: TRESSA [facility] Ykbrju4371 [facility] [id number] WBC (Bld) [#/Vol] 7.4 10*3/uL Normal 3.4-10.8 [facility] Medicine; [facility] Work Phone: Comment on above: PATIENT WAS FASTINGP ERFORMED BY: TRESSA StevenAlba Usncbs6873 [facility] [id number] LIPID PANEL ([id number])Ordered B y: Wine Steward on 12-21-2016 Cholesterol [Mass/Vol] 168 mg/dL Normal 100-199 [facility] Work Phone: Comment on above: PATIENT WAS FASTINGP ERFORMED BY: TRESSA Isrraellili Zpxxct4234 [facility] [id number] Cholesterol in HDL [Mass/Vol] 63 mg/dL Normal [facility] Work Phone: Comment on above: PATIENT WAS FASTINGP ERFORMED BY: TRESSA LabAlba Dsvwkx4356 [facility] [id number] Cholesterol in LDL [Mass/Vol] 85 mg/dL Normal 0-99 [facility] Work Phone: Comment on above: PATIENT WAS FASTINGP ERFORMED BY: TRESSA [facility] Fmrqgt9003 [facility] [id number] Cholesterol in LDL/Cholesterol in HDL [Mass ratio] 1.3 {ratio_units} Normal 0.0-3.2 [facility] Work Phone: Comment on above: LDL/HDL Ratio Men Wo men 1/2 Avg.Risk 1.0 1.5 Avg.Risk 3.6 3.2 2X Avg.Risk 6.2 5.0 3X Avg.Risk 8.0 6.1 PATIENT WAS FASTINGP ERFORMED BY: CB [facility] Jetrgw8256 [address] [facility] [place] [id number] Cholesterol in VLDL [Mass/Vol] 20 mg/dL Normal 5-40 [facility] Work Phone: Comment on above: PATIENT WAS FASTINGP ERFORMED BY: [facility] Pycbho1808 [address] [facility]bl[facility] [place] [id number] Triglyceride [Mass/Vol] 99 mg/dL Normal 0-149 [facility] Work Phone: Comment on above: PATIENT WAS FASTINGP ERFORMED BY: [facility] Rthrzy9652 [address] [facility]bl[facility] [place] [id number] METABOLIC PANEL, COMPREHENSI VE ([id number])Ordered By: Wine Steward on 12-21-2016 Albumin [Mass/Vol] 4.7 g/dL Normal 3.6-4.8 [facility] Internal Medicine Work Phone: Comment on above: PATIENT WAS FASTINGP ERFORMED BY: [facility] Cdroii5925 [address] [facility]bl[facility] [place] [id number]; fu 4-6 Dr. Nazario Albumin/Globulin [Mass ratio] 2.0 {ratio} Normal 1.2-2.2 [facility] Work Phone: Comment on above: Please note refere nce interval change PATIENT WAS FASTINGP ERFORMED BY: [facility] Pftpae6922 [address] [facility] HospitalDublin [place] [id number]; fu 4-6 Dr. Nazario ALP [Catalytic activity/Vol] 72 [iU]/L Normal 39-117 [facility] Work Phone: Comment on above: PATIENT WAS FASTINGP ERFORMED BY: [facility] Vnsopm1211 [address] [facility] HospitalD[place] [id number]; fu 4-6 Dr. Nazario ALP [Catalytic activity/Vol] 72 U/L Normal 39-117 [facility]; [facility] Work Phone: Comment on above: PATIENT WAS FASTINGP ERFORMED BY: CB [facility] Moolpf5749 Walker RoadDublin [place] [id number]; fu 4-6 Dr. Nazario ALT [Catalytic activity/Vol] 18 [iU]/L Normal 0-32 [facility] Work Phone: Comment on above: PATIENT WAS FASTINGP ERFORMED BY: CB [facility] Ijksrt8235 Walker RoadDublin [place] [id number]; fu 4-6 Dr. Nazario ALT [Catalytic activity/Vol] 18 U/L Normal 0-32 [facility]; [facility] Work Phone: Comment on above: PATIENT WAS FASTINGP ERFORMED BY: CB [facility] Zneoks3627 [address] RoadDublin [place] [id number]; fu 4-6 Dr. Nazario AST [Catalytic activity/Vol] 21 [iU]/L Normal 0-40 [facility] Work Phone: Comment on above: PATIENT WAS FASTINGP ERFORMED BY: CB [facility] Fabzlt0546 Walker RoadDublin [place] [id number]; fu 4-6 Dr. Nazario AST [Catalytic activity/Vol] 21 U/L Normal 0-40 [facility]; [facility] Work Phone: Comment on above: PATIENT WAS FASTINGP ERFORMED BY: CB [facility] Mshjqr0835 Walker RoadDublin [place] [id number]; fu 4-6 Dr. Nazario Bilirubin [Mass/Vol] 0.5 mg/dL Normal 0.0-1.2 [facility] Internal Medicine Work Phone: Comment on above: PATIENT WAS FASTINGP ERFORMED BY: CB [facility] Xknccs2449 Walker RoadDublin [place] [id number]; fu 4-6 Dr. Nazario Calcium [Mass/Vol] 9.4 mg/dL Normal 8.7-10.3 [facility] Internal Medicine Work Phone: Comment on above: PATIENT WAS FASTINGP ERFORMED BY: CB [facility] Vmkosc1910 Walker RoadDublin [place] [id number]; fu 4-6 Dr. Nazario Chloride [Moles/Vol] 101 mmol/L Normal 96-106 Comp [facility] Internal Medicine Work Phone: Comment on above: PATIENT WAS FASTINGP ERFORMED BY: CB [facility] Vogewi4023 Walker RoadDublin [place] [id number]; fu 4-6 Dr. Nazario CO2 [Moles/Vol] 22 mmol/L Normal 18-29 [facility] Internal Medicine Work Phone: Comment on above: PATIENT WAS FASTINGP ERFORMED BY: CB [facility] Jxufig3332 [address] RoadDublin [place] [id number]; fu 4-6 Dr. Nazario Creatinine [Mass/Vol] 0.67 mg/dL Normal 0.57-1.00 [facility] Work Phone: Comment on above: PATIENT WAS FASTINGP ERFORMED BY: CB [facility] Xsjmsz4900 [address] RoadDublin [place] [id number]; fu 4-6 Dr. Nazario GFR/1.73 sq M predicted among blacks CKD-EPI (S/P/Bld) [Vol rate/Area] 110 mL/min/1.73 Normal [facility] Work Phone: Comment on above: PATIENT WAS FASTINGP ERFORMED BY: CB [facility] Duqfqm1563 Walker RoadDublin [place] [id number]; fu 4-6 Dr. Nazario GFR/1.73 sq M predicted among non-blacks CKD-EPI (S/P/Bld) [Vol rate/Area] 95 mL/min/1.73 Normal [facility] Work Phone: Comment on above: PATIENT WAS FASTINGP ERFORMED BY: CB [facility] Lidiyc2759 Walker RoadDublin [place] [id number]; fu 4-6 Dr. Nazario Globulin (S) [Mass/Vol] 2.3 g/dL Normal 1.5-4.5 [facility] Work Phone: Comment on above: PATIENT WAS FASTINGP ERFORMED BY: CB [facility] Cnneol6033 Walker RoadDublin [place] [id number]; fu 4-6 Dr. Nazario Glucose [Mass/Vol] 101 mg/dL Abnormal 65-99 [facility] Internal Medicine Work Phone: Comment on above: PATIENT WAS FASTINGP ERFORMED BY: CB [facility] Adqtvg5857 Walker RoadDublin [place] [id number]; fu 4-6 Dr. Nazario Potassium [Moles/Vol] 4.4 mmol/L Normal 3.5-5.2 [facility] Internal Medicine Work Phone: Comment on above: PATIENT WAS FASTINGP ERFORMED BY: CB [facility] Hthlgz7475 Walker RoadDublin [place] [id number]; fu 4-6 Dr. Nazario Protein [Mass/Vol] 7.0 g/dL Normal 6.0-8.5 [facility] Internal Medicine Work Phone: Comment on above: PATIENT WAS FASTINGP ERFORMED BY: CB [facility] Wgsmed3050 [address] RoadDublin [place] [id number]; fu 4-6 Dr. Nazario Sodium [Moles/Vol] 142 mmol/L Normal 134-144 [facility] Internal Medicine Work Phone: Comment on above: PATIENT WAS FASTINGP ERFORMED BY: CB [facility] Gkpddd9276 Walker RoadDublin [place] [id number]; fu 4-6 Dr. Nazario Urea nitrogen [Mass/Vol] 17 mg/dL Normal 8-27 [facility] Internal Medicine Work Phone: Comment on above: PATIENT WAS FASTINGP ERFORMED BY: CB [facility] Ltwsut9310 [address] RoadDublin [place] [id number]; fu 4-6 Dr. Nazario Urea nitrogen/Creatinine [Mass ratio] 25 mg/mg Normal 11-26 [facility] Work Phone: Comment on above: Effective December 25, 2016 BUN/Creatinine Ratio reference interval will be changing to: Age Male Female 0 days - 7 days 9 - 25 9 - 26 8 days - 30 days 8 - 32 10 - 33 1 month - 6 months 11 - 57 11 - 54 7 months - 1 year - 71 20 - 71 2 years - 5 years 19 - 51 19 - 49 6 years - 12 years 14 - 34 13 - 32 13 years - 17 years 10 - 22 10 - 22 18 years - 59 years 9 - 20 9 - 23 >59 years 10 - 24 12 - 28 PATIENT WAS FASTINGP ERFORMED BY: [employer] [facility] Hmqjft8362 [facility] [id number]; fu 4-6 Dr. Nazario Prothrombin Time w/INROrdere d By: Wine Steward on 06-02-2016 INR Coag (PPP) [Relative time] 1.2 {INR} Normal [facility] Work Phone: Comment on above: Order Date: 06/02/16 Order Date: 06/02/16[facility] Xbqnlbbcwt[address] [place], [place], [id number] PT Coag (PPP) [Time] 14.7 s Normal 11.7-14.9 Comp rehensive Internal Medicine Work Phone: Comment on above: Order Date: 06/02/16 Order Date: 06/02/16[facility] Aidsuinhfw[address] [place], [place], [address] CBC W/AUTO DIFF WBC ([id number])O rdered By: Wine Steward on 05-25-2016 Basophils (Bld) [#/Vol] 0.0 {x10E3/uL} Normal 0.0-0.2 [facility] Work Phone: Comment on above: PERFORMED BY: [employer] [facility] [id number] Basophils (Bld) [#/Vol] 0.0 10*3/uL Normal 0.0-0.2 [facility]; [facility] Work Phone: Comment on above: PERFORMED BY: [employer] [facility] [id number] Basophils/100 WBC (Bld) 1 % Normal [facility] Work Phone: Comment on above: PERFORMED BY: [employer] Walker [facility] [id number] Eosinophils (Bld) [#/Vol] 0.1 {x10E3/uL} Normal 0.0-0.4 [facility] Work Phone: Comment on above: PERFORMED BY: PinkelStarlin6370 [address] [facility] [id number] Eosinophils (Bld) [#/Vol] 0.1 10*3/uL Normal 0.0-0.4 [facility]; [facility] Work Phone: Comment on above: PERFORMED BY: Ve[employer]ium[address] [place] [address] [id number] Eosinophils/100 WBC (Bld) 1 % Normal [facility] Work Phone: Comment on above: PERFORMED BY: [employer] [facility] [id number] Erythrocyte distribution width (RBC) [Ratio] 12.9 % Normal 12.3-15.4 [facility] Work Phone: Comment on above: PERFORMED BY: Verenium[address] [place], [place] [address]ox [facility] [id number] Hematocrit (Bld) [Volume fraction] 42.5 % Normal 34.0-46.6 [facility] Work Phone: Comment on above: PERFORMED BY: PinkelStar[address] [id number] Hemoglobin (Bld) [Mass/Vol] 15.0 g/dL Normal 11.1-15.9 [facility] Work Phone: Comment on above: PERFORMED BY: PinkelStar[address] [id number] Immature granulocytes (Bld) [#/Vol] 0.0 {x10E3/uL} Normal 0.0-0.1 [facility] Work Phone: Comment on above: PERFORMED BY: PinkelStar[address] [id number] Immature granulocytes (Bld) [#/Vol] 0.0 10*3/uL Normal 0.0-0.1 [facility]; [facility] Work Phone: Comment on above: PERFORMED BY: Verenium6370 [address] RoadDublin [place] [id number] Immature granulocytes/100 WBC (Bld) 0 % Normal [facility] Work Phone: Comment on above: PERFORMED BY: Verenium6370 [address] RoadDublin [place] [id number] Lymphocytes (Bld) [#/Vol] 2.9 {x10E3/uL} Normal 0.7-3.1 [facility] Work Phone: Comment on above: PERFORMED BY: [employer] RoadDublin [place] [id number] Lymphocytes (Bld) [#/Vol] 2.9 10*3/uL Normal 0.7-3.1 [facility]; [facility] Work Phone: Comment on above: PERFORMED BY: [employer]70 [address] RoadDublin [place] [id number] Lymphocytes/100 WBC (Bld) 35 % Normal [facility] Work Phone: Comment on above: PERFORMED BY: Verenium6[address] Armsbl[place] [id number] MCH (RBC) [Entitic mass] 33.0 pg Normal 26.6-33.0 [facility] Work Phone: Comment on above: PERFORMED BY: Verenium6370 [address] RoadDublin [place] [id number] MCHC (RBC) [Mass/Vol] 35.3 g/dL Normal 31.5-35.7 [facility] Work Phone: Comment on above: PERFORMED BY: Verenium6370 [address] RoadDublin [place] [id number] MCV (RBC) [Entitic vol] 93 fL Normal 79-97 [facility] Work Phone: Comment on above: PERFORMED BY: Verenium6[address] RoadDublin [place] [id number] Monocytes (Bld) [#/Vol] 0.6 {x10E3/uL} Normal 0.1-0.9 [facility] Work Phone: Comment on above: PERFORMED BY: Verenium6[address] RoadDublin [place] [id number] Monocytes (Bld) [#/Vol] 0.6 10*3/uL Normal 0.1-0.9 [facility]; [facility] Work Phone: Comment on above: PERFORMED BY: Verenium6[address] RoadDublin [place] [id number] Monocytes/100 WBC (Bld) 7 % Normal [facility] Work Phone: Comment on above: PERFORMED BY: [employer]70 [address] RoadDublin [place] [id number] Neutrophils (Bld) [#/Vol] 4.6 {x10E3/uL} Normal 1.4-7.0 [facility] Work Phone: Comment on above: PERFORMED BY: [employer] LookAcrossDublin [place] [id number] Neutrophils (Bld) [#/Vol] 4.6 10*3/uL Normal 1.4-7.0 [facility]; [facility] Work Phone: Comment on above: PERFORMED BY: [employer] LookAcrossDublin [place] [id number] Neutrophils/100 WBC (Bld) 56 % Normal [facility] Work Phone: Comment on above: PERFORMED BY: [employer] LookAcrossDublin [place] [id number] Platelets (Bld) [#/Vol] 413 {x10E3/uL} Abnormal 150-379 [facility] Work Phone: Comment on above: PERFORMED BY: [employer] RoadDublin [place] [id number] Platelets (Bld) [#/Vol] 413 10*3/uL Abnormal 150-379 [facility]; [facility] Work Phone: Comment on above: PERFORMED BY: [employer] [facility] ArmsECU [facility] [id number] RBC (Bld) [#/Vol] 4.55 {x10E6/uL} Normal 3.77-5.28 [facility] Internal Medicine Work Phone: Comment on above: PERFORMED BY: Verenium6370 TIFFS TREATS HOLDINGSHugh Chatham Memorial Hospitalin [place] [id number] RBC (Bld) [#/Vol] 4.55 10*6/uL Normal 3.77-5.28 [facility]; [facility] Work Phone: Comment on above: PERFORMED BY: [employer]70 Walkre [facility] [id number] WBC (Bld) [#/Vol] 8.3 {x10E3/uL} Normal 3.4-10.8 [facility] Internal Medicine Work Phone: Comment on above: PERFORMED BY: CampanjaEC[facility] Health [facility] [id number] WBC (Bld) [#/Vol] 8.3 10*3/uL Normal 3.4-10.8 [facility] Internal Medicine; [facility] Work Phone: Comment on above: PERFORMED BY: [facility] [id number] METABOLIC PANEL, COMPREHENSI VE ([id number])Ordered By: Wine Steward on 05-25-2016 Albumin [Mass/Vol] 4.8 g/dL Normal 3.6-4.8 [facility] Internal Medicine Work Phone: Comment on above: PERFORMED BY: [employer] [facility] [id number] Albumin/Globulin [Mass ratio] 1.8 {ratio} Normal 1.1-2.5 [facility] Internal Medicine Work Phone: Comment on above: PERFORMED BY: [facility]ribeLifeB[facility] [id number] ALP [Catalytic activity/Vol] 79 [iU]/L Normal 39-117 [facility] Work Phone: Comment on above: PERFORMED BY: TrustribeDublin [place] [id number] ALP [Catalytic activity/Vol] 79 U/L Normal 39-117 [facility]; [facility] Work Phone: Comment on above: PERFORMED BY: PinkelStarlin6370 [facility] [id number] ALT [Catalytic activity/Vol] 14 [iU]/L Normal 0-32 [facility] Work Phone: Comment on above: PERFORMED BY: PinkelStarlin6370 [facility] [id number] ALT [Catalytic activity/Vol] 14 U/L Normal 0-32 [facility]; [facility] Work Phone: Comment on above: PERFORMED BY: Verenium6370 [facility] [id number] AST [Catalytic activity/Vol] 19 [iU]/L Normal 0-40 [facility] Work Phone: Comment on above: PERFORMED BY: PinkelStarlin6370 [facility] [id number] AST [Catalytic activity/Vol] 19 U/L Normal 0-40 [facility]; [facility] Work Phone: Comment on above: PERFORMED BY: PinkelStarlin6370 [facility] [id number] Bilirubin [Mass/Vol] 0.3 mg/dL Normal 0.0-1.2 Comp rehensive Internal Medicine Work Phone: Comment on above: PERFORMED BY: PinkelStarlin6370 [facility] [id number] Calcium [Mass/Vol] 9.7 mg/dL Normal 8.7-10.3 [facility] Internal Medicine Work Phone: Comment on above: PERFORMED BY: PinkelStar[address] [id number] Chloride [Moles/Vol] 100 mmol/L Normal 97-108 Comp re[facility]ive Internal Medicine Work Phone: Comment on above: PERFORMED BY: PinkelStar[address] [place] [id number] CO2 [Moles/Vol] 24 mmol/L Normal 18-29 [facility] Internal Medicine Work Phone: Comment on above: PERFORMED BY: HD[employer] Pizver0332 [address] RoadDublin [place] [id number] Creatinine [Mass/Vol] 0.54 mg/dL Abnormal 0.57-1.00 [facility] Work Phone: Comment on above: PERFORMED BY: Verenium6[address] RoadDublin [place] [id number] GFR/1.73 sq M predicted among blacks CKD-EPI (S/P/Bld) [Vol rate/Area] 119 mL/min/1.73 Normal [facility] Work Phone: Comment on above: PERFORMED BY: Verenium6[address] RoadroundCornerblin [place] [id number] GFR/1.73 sq M predicted among non-blacks CKD-EPI (S/P/Bld) [Vol rate/Area] 103 mL/min/1.73 Normal [facility] Work Phone: Comment on above: PERFORMED BY: Verenium[address] [place] [id number] Globulin (S) [Mass/Vol] 2.6 g/dL Normal 1.5-4.5 [facility] Work Phone: Comment on above: PERFORMED BY: Verenium[address] Armsin [place] [id number] Glucose [Mass/Vol] 96 mg/dL Normal 65-99 [facility] Internal Medicine Work Phone: Comment on above: PERFORMED BY: Verenium6[address] RoadDublin [place] [id number] Potassium [Moles/Vol] 4.4 mmol/L Normal 3.5-5.2 [facility] Work Phone: Comment on above: PERFORMED BY: Verenium6[address] RoadroundCornerblin [place] [id number] Protein [Mass/Vol] 7.4 g/dL Normal 6.0-8.5 [facility] Internal Medicine Work Phone: Comment on above: PERFORMED BY: Verenium6[address] [employer] [place] [id number] Sodium [Moles/Vol] 141 mmol/L Normal 134-144 [facility] Internal Medicine Work Phone: Comment on above: PERFORMED BY: [employer]70 [employer] [place] [id number] Urea nitrogen [Mass/Vol] 16 mg/dL Normal 8-27 [facility] Work Phone: Comment on above: PERFORMED BY: [employer] [employer] [place] [id number] Urea nitrogen/Creatinine [Mass ratio] 30 mg/mg Abnormal 11-26 [facility] Work Phone: Comment on above: PERFORMED BY: Verenium6[address] [employer] [place] [id number] PT (Prothrobim Time) (61302) Ordered By: Wine Steward on 05-25-2016 INR Coag (PPP) [Relative time] 1.3 {INR} Abnormal 0.8-1.2 [facility] Work Phone: Comment on above: Reference interval i s for non-anticoagulated patients. . Suggested INR therapeutic range for Vitamin K antagonist therapy: Standard Dose (moderate intensity therapeutic range): 2.0 - 3.0 Higher intensity therapeutic range 2.5 - 3.5 PERFORMED BY: Verenium6370 [facility] [id number] PT Coag (PPP) [Time] 13.5 {sec} Abnormal 9.1-12.0 [facility] Work Phone: Comment on above: PERFORMED BY: [employer]70 [employer] [place] [id number] PT Coag (PPP) [Time] 13.5 s Abnormal 9.1-12.0 Comp rehensive Internal Medicine; [facility] Work Phone: Comment on above: PERFORMED BY: [employer]70 [facility] [id number] PTT (Activated Partial Throm boplastin Time) (42819)Ordered By: Wine Steward on 05-25-2016 aPTT Coag (PPP) [Time] 29 {sec} Normal 24-33 [facility] Work Phone: Comment on above: This test has not be en validated for monitoring unfractionated heparintherapy. aPTT-based therapeutic ranges for unfractionated heparintherapy have not been established. For general guidelines onHeparin monitoring, refer to the [employer] Directory of Services. PERFORMED BY: Verenium6370 [facility]ikiECU [facility] [id number] aPTT Coag (PPP) [Time] 29 s Normal 24-33 [facility]; [facility] Work Phone: Comment on above: This test has not be en validated for monitoring unfractionated heparintherapy. aPTT-based therapeutic ranges for unfractionated heparintherapy have not been established. For general guidelines onHeparin monitoring, refer to the [employer] Directory of Services. PERFORMED BY: Verenium6370 [facility] [id number] CBC with auto diff (40060)Or dered By: Wine Steward on 02-03-2016 Basophils (Bld) [#/Vol] 0.1 {x10E3/uL} Normal 0.0-0.2 [facility] Work Phone: Comment on above: PATIENT WAS FASTINGP ERFORMED BY: SnapMyAd70 [facility] [id number] Information: [id number] Basophils (Bld) [#/Vol] 0.1 10*3/uL Normal 0.0-0.2 [facility]; [facility] Work Phone: Comment on above: PATIENT WAS FASTINGP ERFORMED BY: SnapMyAd70 [facility] [id number] Information: [id number] Basophils/100 WBC (Bld) 1 % Normal [facility] Work Phone: Comment on above: PATIENT WAS FASTINGP ERFORMED BY: [place] 9151070 [facility] [id number] Information: 645382,[id number] Eosinophils (Bld) [#/Vol] 0.1 {x10E3/uL} Normal 0.0-0.4 [facility] Work Phone: Comment on above: PATIENT WAS FASTINGP ERFORMED BY: [address] [id number] Information: 874004,[id number] Eosinophils (Bld) [#/Vol] 0.1 10*3/uL Normal 0.0-0.4 [facility]; [facility] Work Phone: Comment on above: PATIENT WAS FASTINGP ERFORMED BY: [address] [id number] Information: [id number] Eosinophils/100 WBC (Bld) 1 % Normal [facility] Work Phone: Comment on above: PATIENT WAS FASTINGP ERFORMED BY: [address] [id number] Information: 318012,[id number] Erythrocyte distribution width (RBC) [Ratio] 13.2 % Normal 12.3-15.4 [facility] Work Phone: Comment on above: PATIENT WAS FASTINGP ERFORMED BY: [address] [id number] Information: 297917,[id number] Hematocrit (Bld) [Volume fraction] 43.3 % Normal 34.0-46.6 [facility] Work Phone: Comment on above: PATIENT WAS FASTINGP ERFORMED BY: [address] [id number] Information: 267594,V96406 Hemoglobin (Bld) [Mass/Vol] 14.4 g/dL Normal 11.1-15.9 [facility] Work Phone: Comment on above: PATIENT WAS FASTINGP ERFORMED BY: [place] 9151070 [facility] [id number] Information: 928700,W29884 Immature granulocytes (Bld) [#/Vol] 0.0 {x10E3/uL} Normal 0.0-0.1 [facility] Work Phone: Comment on above: PATIENT WAS FASTINGP ERFORMED BY: [address] [id number] Information: 255072,F80315 Immature granulocytes (Bld) [#/Vol] 0.0 10*3/uL Normal 0.0-0.1 [facility]; [facility] Work Phone: Comment on above: PATIENT WAS FASTINGP ERFORMED BY: [address] [id number] Information: 182295,T66817 Immature granulocytes/100 WBC (Bld) 0 % Normal [facility] Work Phone: Comment on above: PATIENT WAS FASTINGP ERFORMED BY: [address] [id number] Information: 532802,O75395 Lymphocytes (Bld) [#/Vol] 2.6 {x10E3/uL} Normal 0.7-3.1 [facility] Work Phone: Comment on above: PATIENT WAS FASTINGP ERFORMED BY: [address] [id number] Information: 549194,A69549 Lymphocytes (Bld) [#/Vol] 2.6 10*3/uL Normal 0.7-3.1 [facility]; [facility] Work Phone: Comment on above: PATIENT WAS FASTINGP ERFORMED BY: [place] 9151070 [facility] [id number] Information: 641235,R88215 Lymphocytes/100 WBC (Bld) 30 % Normal [facility] Work Phone: Comment on above: PATIENT WAS FASTINGP ERFORMED BY: [place] 9151070 [facility] [id number] Information: 488012,M12881 MCH (RBC) [Entitic mass] 32.0 pg Normal 26.6-33.0 [facility] Work Phone: Comment on above: PATIENT WAS FASTINGP ERFORMED BY: [address] [id number] Information: 847790,[id number] MCHC (RBC) [Mass/Vol] 33.3 g/dL Normal 31.5-35.7 [facility] Work Phone: Comment on above: PATIENT WAS FASTINGP ERFORMED BY: [address] [id number] Information: 930191,Y74005 MCV (RBC) [Entitic vol] 96 fL Normal 79-97 [facility] Work Phone: Comment on above: PATIENT WAS FASTINGP ERFORMED BY: [address] [id number] Information: 788561,L77952 Monocytes (Bld) [#/Vol] 0.6 {x10E3/uL} Normal 0.1-0.9 [facility] Work Phone: Comment on above: PATIENT WAS FASTINGP ERFORMED BY: [address] [id number] Information: 350510,[id number] Monocytes (Bld) [#/Vol] 0.6 10*3/uL Normal 0.1-0.9 [facility]; [facility] Work Phone: Comment on above: PATIENT WAS FASTINGP ERFORMED BY: [address] [id number] Information: [id number] Monocytes/100 WBC (Bld) 7 % Normal [facility] Work Phone: Comment on above: PATIENT WAS FASTINGP ERFORMED BY: TRESSA Isrrael Haodsz7943 [facility] [id number] Information: 216231,V91014 Neutrophils (Bld) [#/Vol] 5.3 {x10E3/uL} Normal 1.4-7.0 [facility] Work Phone: Comment on above: PATIENT WAS FASTINGP ERFORMED BY: TRESSA [facility]Saint [facility] Xhqljm6359 [facility] [id number] Information: 116245,K49812 Neutrophils (Bld) [#/Vol] 5.3 10*3/uL Normal 1.4-7.0 [facility]; [facility] Internal Medicine Work Phone: Comment on above: PATIENT WAS FASTINGP ERFORMED BY: TRESSA Isrrael Vdbkqt4205 [facility] [id number] Information: 233693,B20848 Neutrophils/100 WBC (Bld) 61 % Normal [facility] Work Phone: Comment on above: PATIENT WAS FASTINGP ERFORMED BY: TRESSA [facility]Saint [facility] Ivdxfo7346 [facility] [id number] Information: 610238,Q40109 Platelets (Bld) [#/Vol] 406 {x10E3/uL} Abnormal 150-379 [facility] Work Phone: Comment on above: PATIENT WAS FASTINGP ERFORMED BY: TRESSA [facility]Saint [facility] Dzzasl1272 [facility] [id number] Information: 739946,Y69961 Platelets (Bld) [#/Vol] 406 10*3/uL Abnormal 150-379 [facility]; [facility] Internal Medicine Work Phone: Comment on above: PATIENT WAS FASTINGP ERFORMED BY: TRESSA [facility] Hnstpg0652 [facility] [id number] Information: 306682,W15788 RBC (Bld) [#/Vol] 4.50 {x10E6/uL} Normal 3.77-5.28 [facility] Internal Medicine Work Phone: Comment on above: PATIENT WAS FASTINGP ERFORMED BY: TRESSA Miles6370 [facility] [id number] Information: 462876,[id number] RBC (Bld) [#/Vol] 4.50 10*6/uL Normal 3.77-5.28 [facility]; [facility] Work Phone: Comment on above: PATIENT WAS FASTINGP ERFORMED BY: TRESSA [employer] Imonmb1687 [facility] [id number] Information: 215289,H91661 WBC (Bld) [#/Vol] 8.6 {x10E3/uL} Normal 3.4-10.8 [facility] Internal Medicine Work Phone: Comment on above: PATIENT WAS FASTINGP ERFORMED BY: TRESSA Loraine Miles6370 [facility] [id number] Information: 401510,A24395 WBC (Bld) [#/Vol] 8.6 10*3/uL Normal 3.4-10.8 [facility] Internal Medicine; [facility] Work Phone: Comment on above: PATIENT WAS FASTINGP ERFORMED BY: TRESSA Miles6370 [facility] [id number] Information: 345344,S45271 LIPID PANEL (80911)Ordered B y: Wine Steward on 02-03-2016 Cholesterol [Mass/Vol] 190 mg/dL Normal 100-199 [facility] Work Phone: Comment on above: PATIENT WAS FASTINGP ERFORMED BY: TRESSA [facility] Zykexu6216 [facility] [id number] Cholesterol in HDL [Mass/Vol] 63 mg/dL Normal [facility] Work Phone: Comment on above: According to ATP-III Guidelines, HDL-C >59 mg/dL is considered anegative risk factor for CHD. PATIENT WAS FASTINGP ERFORMED BY: TRESSA [facility] Icrpij9500 [facility] [id number] Cholesterol in LDL [Mass/Vol] 108 mg/dL Abnormal 0-99 [facility] Work Phone: Comment on above: PATIENT WAS FASTINGP ERFORMED BY: TRESSA StevenRik RodriguezGhtrjm0886 [facility] [id number] Cholesterol in LDL/Cholesterol in HDL [Mass ratio] 1.7 {ratio_units} Normal 0.0-3.2 [facility] Work Phone: Comment on above: LDL/HDL Ratio Men Wo men 1/2 Avg.Risk 1.0 1.5 Avg.Risk 3.6 3.2 2X Avg.Risk 6.2 5.0 3X Avg.Risk 8.0 6.1 PATIENT WAS FASTINGP ERFORMED BY: TRESSA Rodriguezlin6370 [facility] [id number] Cholesterol in VLDL [Mass/Vol] 19 mg/dL Normal 5-40 [facility] Work Phone: Comment on above: PATIENT WAS FASTINGP ERFORMED BY: TRESSA Rodriguezlin6370 [facility] [id number] Triglyceride [Mass/Vol] 96 mg/dL Normal 0-149 [facility] Work Phone: Comment on above: PATIENT WAS FASTINGP ERFORMED BY: TRESSA Rodriguezlin6370 [facility] [id number] METABOLIC PANEL, COMPREHENSI VE (27094)Ordered By: Wine Steward on 02-03-2016 Albumin [Mass/Vol] 4.6 g/dL Normal 3.6-4.8 [facility] Internal Medicine Work Phone: Comment on above: PATIENT WAS FASTINGP ERFORMED BY: TRESSA LabRik RodriguezLlzwtu7885 [facility] [id number]; apt. 5-20 Albumin/Globulin [Mass ratio] 2.1 {ratio} Normal 1.1-2.5 [facility] Work Phone: Comment on above: PATIENT WAS FASTINGP ERFORMED BY: TRESSA LabAlba Snzpoz2575 [facility] [id number]; apt. 5-20 ALP [Catalytic activity/Vol] 71 [iU]/L Normal 39-117 [facility] Work Phone: Comment on above: PATIENT WAS FASTINGP ERFORMED BY: CB [facility] Kjcjif3005 [address] RoadDublin [place] [id number]; apt. 5-20 ALP [Catalytic activity/Vol] 71 U/L Normal 39-117 [facility]; [facility] Work Phone: Comment on above: PATIENT WAS FASTINGP ERFORMED BY: CB [facility] Nsmpfw7063 [address] RoadDublin [place] [id number]; apt. 5-20 ALT [Catalytic activity/Vol] 15 [iU]/L Normal 0-32 [facility] Work Phone: Comment on above: PATIENT WAS FASTINGP ERFORMED BY: CB [facility] Wubzhk0044 [address] RoadDublin [place] [id number]; apt. 5-20 ALT [Catalytic activity/Vol] 15 U/L Normal 0-32 [facility]; [facility] Work Phone: Comment on above: PATIENT WAS FASTINGP ERFORMED BY: CB [facility] Pmgigg8051 [address] RoadDublin [place] [id number]; apt. 5-20 AST [Catalytic activity/Vol] 17 [iU]/L Normal 0-40 [facility] Work Phone: Comment on above: PATIENT WAS FASTINGP ERFORMED BY: CB [facility] Irqecs6691 [address] RoadDublin [place] [id number]; apt. 5-20 AST [Catalytic activity/Vol] 17 U/L Normal 0-40 [facility]; [facility] Work Phone: Comment on above: PATIENT WAS FASTINGP ERFORMED BY: CB [facility] Wlmrvx7068 [address] RoadDublin [place] [id number]; apt. 5-20 Bilirubin [Mass/Vol] 0.4 mg/dL Normal 0.0-1.2 [facility] Internal Medicine Work Phone: Comment on above: PATIENT WAS FASTINGP ERFORMED BY: CB [facility] Mndgsy1288 [address] RoadDublin [place] [id number]; apt. 5-20 Calcium [Mass/Vol] 9.6 mg/dL Normal 8.7-10.3 [facility] Internal Medicine Work Phone: Comment on above: PATIENT WAS FASTINGP ERFORMED BY: CB [facility] Tqkuus4967 [address] RoadDublin [place] [id number]; apt. 5-20 Chloride [Moles/Vol] 102 mmol/L Normal 97-108 [facility] Work Phone: Comment on above: PATIENT WAS FASTINGP ERFORMED BY: CB [facility] Xuexuj6708 [address] RoadDublin [place] [id number]; apt. 5-20 CO2 [Moles/Vol] 21 mmol/L Normal 18-29 [facility] Internal Medicine Work Phone: Comment on above: PATIENT WAS FASTINGP ERFORMED BY: CB [facility] Nujxsz8204 [address] RoadDublin [place] [id number]; apt. 5-20 Creatinine [Mass/Vol] 0.63 mg/dL Normal 0.57-1.00 [facility] Work Phone: Comment on above: PATIENT WAS FASTINGP ERFORMED BY: CB [facility] Nfsgpk4845 [address] RoadDublin [place] [id number]; apt. 5-20 GFR/1.73 sq M predicted among blacks CKD-EPI (S/P/Bld) [Vol rate/Area] 113 mL/min/1.73 Normal [facility] Work Phone: Comment on above: PATIENT WAS FASTINGP ERFORMED BY: CB [facility] Vsfepw5024 [address] RoadDublin [place] [id number]; apt. 5-20 GFR/1.73 sq M predicted among non-blacks CKD-EPI (S/P/Bld) [Vol rate/Area] 98 mL/min/1.73 Normal [facility] Work Phone: Comment on above: PATIENT WAS FASTINGP ERFORMED BY: CB [facility] Hyzxmi8345 [address] RoadDublin [place] [id number]; apt. 5-20 Globulin (S) [Mass/Vol] 2.2 g/dL Normal 1.5-4.5 [facility] Work Phone: Comment on above: PATIENT WAS FASTINGP ERFORMED BY: TRESSA [facility] Gxwgij8434 [address] RoadDublin [place] [id number]; apt. 5-20 Glucose [Mass/Vol] 81 mg/dL Normal 65-99 [facility] Internal Medicine Work Phone: Comment on above: PATIENT WAS FASTINGP ERFORMED BY: CB [facility] Nyumzg5449 [address] RoadDublin [place] [id number]; apt. 5-20 Potassium [Moles/Vol] 4.6 mmol/L Normal 3.5-5.2 [facility] Work Phone: Comment on above: PATIENT WAS FASTINGP ERFORMED BY: TRESSA [facility] Gikokm7249 [address] RoadDublin [place] [id number]; apt. 5-20 Protein [Mass/Vol] 6.8 g/dL Normal 6.0-8.5 [facility] Internal Medicine Work Phone: Comment on above: PATIENT WAS FASTINGP ERFORMED BY: TRESSA [facility] Ocuxhc8236 [address] RoadDublin [place] [id number]; apt. 5-20 Sodium [Moles/Vol] 143 mmol/L Normal 134-144 [facility] Internal Medicine Work Phone: Comment on above: PATIENT WAS FASTINGP ERFORMED BY: [facility] Tssnzj6939 [address] RoadDublin [place] [id number]; apt. 5-20 Urea nitrogen [Mass/Vol] 17 mg/dL Normal 8-27 [facility] Work Phone: Comment on above: PATIENT WAS FASTINGP ERFORMED BY: CB [facility] Wllhyw0585 [address] RoadDublin [place] [id number]; apt. 5-20 Urea nitrogen/Creatinine [Mass ratio] 27 mg/mg Abnormal 11-26 [facility] Work Phone: Comment on above: PATIENT WAS FASTINGP ERFORMED BY: [facility] Xddafp0662 [address] RoadDublin [place] [id number]; apt. 5-20 CALCIFIDIOL (52445) VIT D 25 Ordered By: Wine Steward on 07-30-2015 25-Hydroxyvitamin D2+25-Hydroxyvitamin D3 [Mass/Vol] 20.3 ng/mL Abnormal 30.0-100.0 [facility] Work Phone: Comment on above: Vitamin D deficiency has been defined by the Ramer ofOhiohealth Berger Hospitalcine and an Endocrine Society practice guideline as alevel of serum 25-OH vitamin D less than 20 ng/mL (1,2).The Endocrine Society went on to further define vitamin Dinsufficiency as a level between 21 and 29 ng/mL (2).1. IOM (Ramer of Medicine). 2010. Dietary reference intakes for calcium and D. [place]: The National Academies Press.2. Karla MF, Zoila PÉREZ, Sofy REYES, et al. Evaluation, treatment, and prevention of vitamin D deficiency: an Endocrine Society clinical practice guideline. JCEM. 2010; 96(7):1911-30. PATIENT WAS FASTINGP ERFORMED BY: [employer] [employer] [place] [id number] CBC with auto diff (46841)Or dered By: Wine Steward on 07-30-2015 Basophils (Bld) [#/Vol] 0.1 {x10E3/uL} Normal 0.0-0.2 [facility] Work Phone: Comment on above: PATIENT WAS FASTINGP ERFORMED BY: [employer] [place] [id number] Information: D85412, 665757; apt 15 Basophils (Bld) [#/Vol] 0.1 10*3/uL Normal 0.0-0.2 [facility]; [facility] Work Phone: Comment on above: PATIENT WAS FASTINGP ERFORMED BY: [employer]6370 [facility] [id number] Information: J16893, 306549; apt 08-06-15 Basophils/100 WBC (Bld) 1 % Normal [facility] Work Phone: Comment on above: PATIENT WAS FASTINGP ERFORMED BY: [facility] Bdoyfn5127 [address] [facility] [id number] Information: J59332, 570978; apt 08-06-15 Eosinophils (Bld) [#/Vol] 0.1 {x10E3/uL} Normal 0.0-0.4 [facility] Work Phone: Comment on above: PATIENT WAS FASTINGP ERFORMED BY: [facility] Hqvcvl1430 [address] [facility] [id number] Information: Z51334, 283920; apt 08-06-15 Eosinophils (Bld) [#/Vol] 0.1 10*3/uL Normal 0.0-0.4 [facility]; [facility] Work Phone: Comment on above: PATIENT WAS FASTINGP ERFORMED BY: [facility]6370 [facility] [id number] Information: N01311, 989126; apt 08-06-15 Eosinophils/100 WBC (Bld) 2 % Normal [facility] Work Phone: Comment on above: PATIENT WAS FASTINGP ERFORMED BY: [facility] Wykpgw8448 [facility] [id number] Information: F45576, 039200; apt 08-06-15 Erythrocyte distribution width (RBC) [Ratio] 13.1 % Normal 12.3-15.4 [facility] Work Phone: Comment on above: PATIENT WAS FASTINGP ERFORMED BY: [facility] Pusyge2981 [facility] [id number] Information: R44758, 906884; apt 08-06-15 Hematocrit (Bld) [Volume fraction] 42.1 % Normal 34.0-46.6 [facility] Work Phone: Comment on above: PATIENT WAS FASTINGP ERFORMED BY: [facility] Bngjat7968 [address] [facility] [id number] Information: Q65897, 452862; apt 1115 Hemoglobin (Bld) [Mass/Vol] 14.2 g/dL Normal 11.1-15.9 [facility] Work Phone: Comment on above: PATIENT WAS FASTINGP ERFORMED BY: [facility]6370 [facility] [id number] Information: Z34835, 043020; apt 15 Immature granulocytes (Bld) [#/Vol] 0.0 {x10E3/uL} Normal 0.0-0.1 [facility] Work Phone: Comment on above: PATIENT WAS FASTINGP ERFORMED BY: [place] 9151070 [facility] [id number] Information: F35865, 666697; apt 08-06-15 Immature granulocytes (Bld) [#/Vol] 0.0 10*3/uL Normal 0.0-0.1 [facility]; [facility] Work Phone: Comment on above: PATIENT WAS FASTINGP ERFORMED BY: [facility]6370 [facility] [id number] Information: G39855, 040080; apt 15 Immature granulocytes/100 WBC (Bld) 0 % Normal [facility] Work Phone: Comment on above: PATIENT WAS FASTINGP ERFORMED BY: [place] 9151070 [facility] [id number] Information: K89446, 579943; apt 15 Lymphocytes (Bld) [#/Vol] 2.3 {x10E3/uL} Normal 0.7-3.1 [facility] Work Phone: Comment on above: PATIENT WAS FASTINGP ERFORMED BY: [facility]6370 [facility] [id number] Information: E42928, 826885; apt 1115 Lymphocytes (Bld) [#/Vol] 2.3 10*3/uL Normal 0.7-3.1 [facility]; [facility] Work Phone: Comment on above: PATIENT WAS FASTINGP ERFORMED BY: [facility]6370 [facility] [id number] Information: F02582, 915133; apt 08-06-15 Lymphocytes/100 WBC (Bld) 28 % Normal [facility] Work Phone: Comment on above: PATIENT WAS FASTINGP ERFORMED BY: [place] 9151070 [facility] [id number] Information: W20954, 154055; apt 08-06-15 MCH (RBC) [Entitic mass] 32.7 pg Normal 26.6-33.0 [facility] Work Phone: Comment on above: PATIENT WAS FASTINGP ERFORMED BY: [facility]6370 [facility] [id number] Information: P20319, 810859; apt 08-06-15 MCHC (RBC) [Mass/Vol] 33.7 g/dL Normal 31.5-35.7 [facility] Work Phone: Comment on above: PATIENT WAS FASTINGP ERFORMED BY: [place] 9151070 [facility] [id number] Information: X66990, 152858; apt 08-06-15 MCV (RBC) [Entitic vol] 97 fL Normal 79-97 [facility] Work Phone: Comment on above: PATIENT WAS FASTINGP ERFORMED BY: [facility]6370 [facility] [id number] Information: S64383, 203102; apt 08-06-15 Monocytes (Bld) [#/Vol] 0.6 {x10E3/uL} Normal 0.1-0.9 [facility] Work Phone: Comment on above: PATIENT WAS FASTINGP ERFORMED BY: [facility]6370 [facility] [id number] Information: I10913, 770233; apt 1115 Monocytes (Bld) [#/Vol] 0.6 10*3/uL Normal 0.1-0.9 [facility]; [facility] Work Phone: Comment on above: PATIENT WAS FASTINGP ERFORMED BY: LabCoSt. Mary's HospitalVsxkov6984 [facility] [id number] Information: G15938, 428427; apt 1115 Monocytes/100 WBC (Bld) 7 % Normal [facility] Work Phone: Comment on above: PATIENT WAS FASTINGP ERFORMED BY: LabCoAbigail Ville 1876270 [facility] [id number] Information: G61421, 946695; apt 15 Neutrophils (Bld) [#/Vol] 5.0 {x10E3/uL} Normal 1.4-7.0 [facility] Work Phone: Comment on above: PATIENT WAS FASTINGP ERFORMED BY: [facility]6370 [facility] [id number] Information: O04921, 099994; apt 15 Neutrophils (Bld) [#/Vol] 5.0 10*3/uL Normal 1.4-7.0 [facility]; [facility] Work Phone: Comment on above: PATIENT WAS FASTINGP ERFORMED BY: [facility]6370 [facility] [id number] Information: R35370, 438327; apt 1115 Neutrophils/100 WBC (Bld) 62 % Normal [facility] Work Phone: Comment on above: PATIENT WAS FASTINGP ERFORMED BY: [facility]6370 [facility] [id number] Information: I86999, 827550; apt 1115 Platelets (Bld) [#/Vol] 399 {x10E3/uL} Abnormal 150-379 [facility] Work Phone: Comment on above: PATIENT WAS FASTINGP ERFORMED BY: TRESSA StevenAlba Drmylu7245 [facility] [id number] Information: V76154, 930931; apt 11--15 Platelets (Bld) [#/Vol] 399 10*3/uL Abnormal 150-379 [facility]; [facility] Work Phone: Comment on above: PATIENT WAS FASTINGP ERFORMED BY: TRESSA StevenCo Kbhvbl1425 [facility] [id number] Information: C21784, 058937; apt 11-15 RBC (Bld) [#/Vol] 4.34 {x10E6/uL} Normal 3.77-5.28 [facility] Internal Medicine Work Phone: Comment on above: PATIENT WAS FASTINGP ERFORMED BY: TRESSA Baron Olpfvb0702 [facility] [id number] Information: U68331, 195686; apt 11-15 RBC (Bld) [#/Vol] 4.34 10*6/uL Normal 3.77-5.28 [facility] Internal Medicine; [facility] Work Phone: Comment on above: PATIENT WAS FASTINGP ERFORMED BY: TRESSA StevenRik Dhvdxa9857 [facility] [id number] Information: X88307, 425165; apt 11-15 WBC (Bld) [#/Vol] 8.0 {x10E3/uL} Normal 3.4-10.8 [facility] Internal Medicine Work Phone: Comment on above: PATIENT WAS FASTINGP ERFORMED BY: TRESSA [facility] Yqlbpk7890 [facility] [id number] Information: L96203, 733512; apt 11-15 WBC (Bld) [#/Vol] 8.0 10*3/uL Normal 3.4-10.8 [facility] Internal Medicine; [facility] Internal Medicine Work Phone: Comment on above: PATIENT WAS FASTINGP ERFORMED BY: TRESSA [facility] Dhwqvi[address]Ac[address] [place] [id number] Information: F76080, 534245; apt 08-06-15 LIPID PANEL (82095)Ordered B y: Wine Steward on 07-30-2015 Cholesterol [Mass/Vol] 190 mg/dL Normal 100-199 [facility] Work Phone: Comment on above: Please note refere nce interval change PATIENT WAS FASTINGP ERFORMED BY: CB [facility] Ooufxa1806 Walker RoadDublin [place] [id number] Cholesterol in HDL [Mass/Vol] 62 mg/dL Normal [facility] Work Phone: Comment on above: According to ATP-III Guidelines, HDL-C >59 mg/dL is considered anegative risk factor for CHD. PATIENT WAS FASTINGP ERFORMED BY: TRESSA [facility] Cameva[address] LookAcrossDuin [place] [id number] Cholesterol in LDL [Mass/Vol] 110 mg/dL Abnormal 0-99 [facility] Work Phone: Comment on above: Please note refere nce interval change PATIENT WAS FASTINGP ERFORMED BY: TRESSA [facility] Jzfkvf0334 Walker LookAcrossblin [place] [id number] Cholesterol in LDL/Cholesterol in HDL [Mass ratio] 1.8 {ratio_units} Normal 0.0-3.2 [facility] Work Phone: Comment on above: LDL/HDL Ratio Men Wo men 1/2 Avg.Risk 1.0 1.5 Avg.Risk 3.6 3.2 2X Avg.Risk 6.2 5.0 3X Avg.Risk 8.0 6.1 PATIENT WAS FASTINGP ERFORMED BY: CB [facility] Jjnwku2144 Walker RoadDublin [place] [id number] Cholesterol in VLDL [Mass/Vol] 18 mg/dL Normal 5-40 [facility] Work Phone: Comment on above: PATIENT WAS FASTINGP ERFORMED BY: CB [facility] Innimp0464 Walker RoadDublin [place] [id number] Triglyceride [Mass/Vol] 88 mg/dL Normal 0-149 [facility] Work Phone: Comment on above: Please note refere nce interval change PATIENT WAS FASTINGP ERFORMED BY: TRESSA [facility] Qrkwwl7681 Walker RoadDublin [place] [id number] METABOLIC PANEL, COMPREHENSI KELLY ([id number])Ordered By: Wine Steward on 07-30-2015 Albumin [Mass/Vol] 4.7 g/dL Normal 3.6-4.8 [facility] Work Phone: Comment on above: PATIENT WAS FASTINGP ERFORMED BY: TRESSA [facility] Qvkwsn7213 Walker RoadDublin [place] [id number] Albumin/Globulin [Mass ratio] 2.0 {ratio} Normal 1.1-2.5 [facility] Work Phone: Comment on above: PATIENT WAS FASTINGP ERFORMED BY: TRESSA [facility] Gvtxrf9784 Walker RoadDublin [place] [id number] ALP [Catalytic activity/Vol] 74 [iU]/L Normal 39-117 [facility] Work Phone: Comment on above: PATIENT WAS FASTINGP ERFORMED BY: TRESSA [facility] Dhjxzn7527 Walker RoadDublin [place] [id number] ALP [Catalytic activity/Vol] 74 U/L Normal 39-117 [facility]; [facility] Work Phone: Comment on above: PATIENT WAS FASTINGP ERFORMED BY: TRESSA [facility] Cnhwwb8299 Walker RoadDublin [place] [id number] ALT [Catalytic activity/Vol] 13 [iU]/L Normal 0-32 [facility] Work Phone: Comment on above: PATIENT WAS FASTINGP ERFORMED BY: CB [facility] Kurhpl3279 Walker RoadDublin [place] [id number] ALT [Catalytic activity/Vol] 13 U/L Normal 0-32 [facility]; [facility] Work Phone: Comment on above: PATIENT WAS FASTINGP ERFORMED BY: CB [facility] Ashega2313 [address] RoadDublin [place] [id number] AST [Catalytic activity/Vol] 19 [iU]/L Normal 0-40 [facility] Work Phone: Comment on above: PATIENT WAS FASTINGP ERFORMED BY: CB [facility] Bndwiu7232 [address] RoadDublin [place] [id number] AST [Catalytic activity/Vol] 19 U/L Normal 0-40 [facility]; [facility] Work Phone: Comment on above: PATIENT WAS FASTINGP ERFORMED BY: CB [facility] Imvkrp5665 Walker RoadDublin [place] [id number] Bilirubin [Mass/Vol] 0.3 mg/dL Normal 0.0-1.2 [facility] Work Phone: Comment on above: PATIENT WAS FASTINGP ERFORMED BY: [facility] Pimgur3465 [address] RoadDublin [place] [id number] Calcium [Mass/Vol] 9.7 mg/dL Normal 8.7-10.3 [facility] Medicine Work Phone: Comment on above: PATIENT WAS FASTINGP ERFORMED BY: [facility] Rpoupb3272 [address] RoadDublin [place] [id number] Chloride [Moles/Vol] 101 mmol/L Normal 97-108 [facility] Internal Medicine Work Phone: Comment on above: PATIENT WAS FASTINGP ERFORMED BY: [facility] Qjaigg4511 [address] RoadDublin [place] [id number] CO2 [Moles/Vol] 23 mmol/L Normal 18-29 [facility] Internal Medicine Work Phone: Comment on above: PATIENT WAS FASTINGP ERFORMED BY: [facility] Hveygz8126 [address] RoadDublin [place] [id number] Creatinine [Mass/Vol] 0.65 mg/dL Normal 0.57-1.00 [facility] Internal Medicine Work Phone: Comment on above: PATIENT WAS FASTINGP ERFORMED BY: CB [facility] Bvnfqt1180 [address] RoadDublin [place] [id number] GFR/1.73 sq M predicted among blacks CKD-EPI (S/P/Bld) [Vol rate/Area] 112 mL/min/1.73 Normal [facility] Work Phone: Comment on above: PATIENT WAS FASTINGP ERFORMED BY: TRESSA [facility] Hsmonm2717 [address] RoadDublin [place] [id number] GFR/1.73 sq M predicted among non-blacks CKD-EPI (S/P/Bld) [Vol rate/Area] 97 mL/min/1.73 Normal [facility] Work Phone: Comment on above: PATIENT WAS FASTINGP ERFORMED BY: [facility] Exgyzi7193 [address] RoadDublin [place] [id number] Globulin (S) [Mass/Vol] 2.4 g/dL Normal 1.5-4.5 [facility] Internal Medicine Work Phone: Comment on above: PATIENT WAS FASTINGP ERFORMED BY: [facility] Uaafrn4970 [address] RoadDublin [place] [id number] Glucose [Mass/Vol] 89 mg/dL Normal 65-99 [facility] Internal Medicine Work Phone: Comment on above: PATIENT WAS FASTINGP ERFORMED BY: [facility] Qikecz8[address] RoadDublin [place] [id number] Potassium [Moles/Vol] 5.1 mmol/L Normal 3.5-5.2 [facility] Internal Medicine Work Phone: Comment on above: PATIENT WAS FASTINGP ERFORMED BY: [facility] Vvckyg6631 [address] RoadDublin [place] [id number] Protein [Mass/Vol] 7.1 g/dL Normal 6.0-8.5 [facility] Work Phone: Comment on above: PATIENT WAS FASTINGP ERFORMED BY: [facility] Tdsbil8151 [address] RoadDublin [place] [id number] Sodium [Moles/Vol] 143 mmol/L Normal 134-144 [facility] Work Phone: Comment on above: PATIENT WAS FASTINGP ERFORMED BY: [facility] Kyzkiy2800 [address] RoadDublin [place] [id number] Urea nitrogen [Mass/Vol] 17 mg/dL Normal 8-27 [facility] Work Phone: Comment on above: PATIENT WAS FASTINGP ERFORMED BY: TRESSA [facility] Tidkpa2811 [address] Roadblin [place] [id number] Urea nitrogen/Creatinine [Mass ratio] 26 mg/mg Normal 11-26 [facility] Work Phone: Comment on above: PATIENT WAS FASTINGP ERFORMED BY: TRESSA [facility] Wgpgjq4690 [address] RoadDublin [place] [id number] Microscopic ExaminationOrder ed By: Wine Steward on 07-30-2015 Bacteria LM.HPF (Urine sed) [#/Area] Few Normal Comprehensi ve Internal Medicine Work Phone: Comment on above: PATIENT WAS FASTINGP ERFORMED BY: TRESSA [facility] Bzcanf2135 Walker RoadDuin [place] [id number] Epithelial cells LM.HPF (Urine sed) [#/Area] 0-10 Normal 0 - 10 [facility] Work Phone: Comment on above: PATIENT WAS FASTINGP ERFORMED BY: TRESSA [facility] Ncecui4492 [address] RoadDublin [place] [id number] Mucus Ql (Urine sed) Present Normal Comp rehensive Internal Medicine Work Phone: Comment on above: PATIENT WAS FASTINGP ERFORMED BY: TRESSA [facility] Xniyhc1855 [address] RoadDublin [place] [id number] RBC LM.HPF (Urine sed) [#/Area] 0-2 Normal 0 - 2 [facility] Work Phone: Comment on above: PATIENT WAS FASTINGP ERFORMED BY: [facility] Iljzen5809 [address] RoadDublin [place] [id number] WBC LM.HPF (Urine sed) [#/Area] 0-5 Normal 0 - 5 [facility] Work Phone: Comment on above: PATIENT WAS FASTINGP ERFORMED BY: [facility] Ycunaw6480 [address] RoadDublin [place] [id number] URINALYSIS, W/ MICRO ([id number]) Ordered By: Wine Steward on 07-30-2015 Appearance (U) Clear Normal Comprehens yelena Internal Medicine Work Phone: Comment on above: PATIENT WAS FASTINGP ERFORMED BY: TRESSA [facility] Zoihrf8498 [address] RoadDublin [place] [id number] Bilirubin Ql (U) Negative Normal Comprehe nsive Internal Medicine Work Phone: Comment on above: PATIENT WAS FASTINGP ERFORMED BY: TRESSA [facility] Xagipo8389 [address] RoadDublin [place] [id number] Bilirubin Ql (U) Negative Normal Comprehe nsive Internal Medicine; [facility] Work Phone: Comment on above: PATIENT WAS FASTINGP ERFORMED BY: TRESSA [facility] Hxrcym9582 [address] RoadDublin [place] [id number] Color (U) Yellow Normal [facility] Work Phone: Comment on above: PATIENT WAS FASTINGP ERFORMED BY: TRESSA [facility] Pfqexc5598 [address] RoadDublin [place] [id number] Glucose Ql (U) Negative Normal Comprehens yelena [facility] Work Phone: Comment on above: PATIENT WAS FASTINGP ERFORMED BY: TRESSA [facility] Pkjmzf4186 [address] RoadDublin [place] [id number] Glucose Ql (U) Negative Normal Comprehens yelena [facility]; [facility] Work Phone: Comment on above: PATIENT WAS FASTINGP ERFORMED BY: TRESSA [facility] Xcdjgh0392 Walker RoadDublin [place] [id number] Hemoglobin Ql (U) Negative Normal Compreh ensive Internal Medicine Work Phone: Comment on above: PATIENT WAS FASTINGP ERFORMED BY: TRESSA [facility] Sxhfwz9724 [address] RoadDublin [place] [id number] Hemoglobin Ql (U) Negative Normal Compreh ensive [facility] Medicine; [facility] Work Phone: Comment on above: PATIENT WAS FASTINGP ERFORMED BY: TRESSA [facility] Atotyz9105 [address] RoadDublin [place] [id number] Ketones Ql (U) Negative Normal Comprehens yelena [facility] Work Phone: Comment on above: PATIENT WAS FASTINGP ERFORMED BY: TRESSA [facility] Vowwbh7343 [address] RoadDublin [place] [id number] Ketones Ql (U) Negative Normal Comprehens yelena [facility]; [facility] Work Phone: Comment on above: PATIENT WAS FASTINGP ERFORMED BY: TRESSA [facility] Ygsbjf3491 [address] RoadDublin [place] [id number] Leukocyte esterase Test strip Ql (U) Negative Normal [facility] Work Phone: Comment on above: PATIENT WAS FASTINGP ERFORMED BY: TRESSA [facility] Ynucig0322 [address] RoadDublin [place] [id number] Leukocyte esterase Test strip Ql (U) Negative Normal [facility]; [facility] Work Phone: Comment on above: PATIENT WAS FASTINGP ERFORMED BY: TRESSA [facility] Avawpi1321 [address] RoadDublin [place] [id number] Microscopic observation LM Nom (Urine sed) See below: Normal [facility] Work Phone: Comment on above: Microscopic was radha cated and was performed. PATIENT WAS FASTINGP ERFORMED BY: TRESSA [facility] Epxgua0279 [address] RoadDublin [place] [id number] Microscopic observation LM Nom (Urine sed) MICRON Normal [facility] Work Phone: Comment on above: Microscopic follows if indicated. PATIENT WAS FASTINGP ERFORMED BY: TRESSA [facility] Vnsuae7689 [address] RoadDublin [place] [id number] Nitrite Ql (U) Negative Normal Comprehens yelena [facility] Work Phone: Comment on above: PATIENT WAS FASTINGP ERFORMED BY: TRESSA [facility] Pyohnc7499 [address] RoadDublin [place] [id number] Nitrite Ql (U) Negative Normal Comprehens yelena [facility]; [facility] Work Phone: Comment on above: PATIENT WAS FASTINGP ERFORMED BY: TRSESA [facility] Impncf7649 [address] RoadDublin [place] [id number] pH (U) 6.5 [pH] Normal 5.0-7.5 [facility] Work Phone: Comment on above: PATIENT WAS FASTINGP ERFORMED BY: [facility] Wklwqv9770 [address] RoadDublin [place] [id number] Protein Ql (U) Negative Normal Comprehens yelena [facility] Work Phone: Comment on above: PATIENT WAS FASTINGP ERFORMED BY: [facility] Bbaxlf4629 [address] RoadDublin [place] [id number] Protein Ql (U) Negative Normal Comprehens yelena [facility]; [facility] Work Phone: Comment on above: PATIENT WAS FASTINGP ERFORMED BY: [facility] Qnaufm7189 [address] Roadblin [place] [id number] Specific gravity (U) [Rel density] 1.018 1 Normal 1.005-1.03 0 [facility] Internal Medicine Work Phone: Comment on above: PATIENT WAS FASTINGP ERFORMED BY: [facility] Ayfwgf9996 [address] RoadDublin [place] [id number] Urobilinogen (U) [Mass/Vol] 0.2 mg/dL Normal 0.2-1.0 [facility]; [facility] Work Phone: Comment on above: PATIENT WAS FASTINGP ERFORMED BY: [facility] Cjaglw0936 Walker RoadDublin [place] [id number] Urobilinogen Test strip (U) [Mass/Vol] 0.2 mg/dL Normal 0.2-1.0 [facility] Work Phone: Comment on above: PATIENT WAS FASTINGP ERFORMED BY: [facility] Jqosii2972 [address] RoadDublin [place] [id number] IGP, Aptima HPV, rfx 16/18,4 5Ordered By: Wine Steward on 02-19-2015 HPV 16+18+31+33+35+39+45 +51+52+56+58+59+66+6 8 DNA Probe+sig amp Ql (Cvx) Negative Normal [facility] Work Phone: Comment on above: This test detects fo urteen high-risk HPV types (16/18/31/33/35/39/45/51/52/56/58/59/66/68) without differentiation. Source.............C ervical;EndocervicalNo. of containers..01 CYTYC Thin Prep VialPATIENT NOT FASTINGPERFORMED BY: =G LabCoTrusted OpinionDermhiwhue[address] [place] [id number] BY: mobicanvas[address] GageEngage Mobilityrleshunterdon medical center [place] [id number] Microscopic observation Other stain Nom (Unsp spec) . Normal [facility] Work Phone: Comment on above: Source.............C ervical;EndocervicalNo. of containers..01 CYTYC Thin Prep VialPATIENT NOT FASTINGPERFORMED BY: =G LabYG Entertainment[address] Allenhunterdon medical center W [id number] BY: mobicanvas[address] AttenderherminiaEngage MobilityrInsight Plushunterdon medical center [place] [id number] Pathology report final diagnosis Narrative SPRCS Normal [facility] Work Phone: Comment on above: NEGATIVE FOR INTRAEP ITHELIAL LESION AND MALIGNANCY.Satisfactory for evaluation.Areas of partially obscuring exudate are present.V72.31 ; Routine gynecological examinationElliot Harjinder, Pool Player (ASCP) Source.............C ervical;EndocervicalNo. of containers..01 CYTYC Thin Prep VialPATIENT NOT FASTINGPERFORMED BY: =G [facility] Mkdzcpqfmp[address] [place] [id number] BY: WB LabYG Entertainment120 [address] AttenderherminiaEngage MobilityrInsight Plushunterdon medical center [place] [id number] IGP, Aptima HPV, rfx 16/18,45 PAPSMR Normal [facility] Work Phone: Comment on above: The Pap smear is a s creening test designed to aid in the detection ofpremalignant and malignant conditions of the uterine cervix. It is not adiagnostic procedure and should not be used as the sole means of detectingcervical cancer. Both false-positive and false-negative reports do occur. . Source.............C ervical;EndocervicalNo. of containers..01 CYTYC Thin Prep VialPATIENT NOT FASTINGPERFORMED BY: =G [facility] Cswjehdvea[address] PlaDeer Park Hospitalrleshunterdon medical center [place] [id number] BY: LabConewBrandAnalytics120 [facility] Centerrupmc [facility] [place] [id number] IGP,Aptima HPV,CtNg Age Gdln Ordered By: Wine Steward on 02-19-2015 IGP,Aptima HPV,CtNg Age Gdln 30-65 Normal [facility] Work Phone: Comment on above: Source.............C ervical;EndocervicalNo. of containers..01 CYTYC Thin Prep VialPATIENT NOT FASTINGPERFORMED BY: =G [facility] Vekhrmeqof704 [facility] Medical CenterEngage MobilityrInsight Plushunterdon medical center [place] [id number] BY: [facility] Fnetlcprzz286 [facility] Centerrupmc [facility] [place] [id number] Information: [id number] CK-MB Quantitative and Index Ordered By: Wine Steward on 02-10-2015 CK.MB [Mass/Vol] 0.7 ng/mL Normal 0.0-5.0 Comprehe [facility] Internal Medicine Work Phone: Comment on above: CK-MB and RI Interpr etation MB Relative Index Non-AMI 5 5 > 4 'TROP' Serial specim en #1, #2, #3, or #4: 1'CKMB' Serial Specimen #1, #2 or #3? 1Test performed at:[facility] [address]kw[address] [place] [address] CK-MB Quantitative and Index 105 U/L Normal 26-192 [facility] Work Phone: Comment on above: 'TROP' Serial specim en #1, #2, #3, or #4: 1'CKMB' Serial Specimen #1, #2 or #3? 1Test performed at:[facility] [address]qbxc[address] [place] [address] CRPOrdered By: System Manage r on 02-10-2015 CRP [Mass/Vol] mg/L Normal 0.0-3.0 [facility] Internal Medicine Work Phone: Comment on above: C-Reactive Protein ( CRP) provides useful information for thediagnosis, therapy and monitoring of inflammatory processesand associated diseases. For the evaluation of Relative Riskfor Cardiovascular Disease, a High Sensitivity CRP (HSCRP)should be ordered. 'TROP' Serial specim en #1, #2, #3, or #4: 1'CKMB' Serial Specimen #1, #2 or #3? 1Test performed at:[facility] [address]ged[address] [place] [id number] Troponin-IOrdered By: Wine Steward on 02-10-2015 Troponin I.cardiac [Mass/Vol] ng/mL Normal [facility] Work Phone: Comment on above: TROPONIN-I EXPECTED VALUES <0.05 NEGATIVE 0.06 - 0.59 AT RISK OF MS > OR = 0.60 SUGGEST MS 'TROP' Serial specim en #1, #2, #3, or #4: 1'CKMB' Serial Specimen #1, #2 or #3? 1Test performed at:[facility] [address] [place], [place] [id number] CBC W/AUTO DIFF WBC (18957)O rdered By: Wine Steward on 01-01-2015 Basophils (Bld) [#/Vol] 0.1 {x10E3/uL} Normal 0.0-0.2 [facility] Work Phone: Comment on above: PATIENT WAS FASTINGP ERFORMED BY: SnapMyAd70 VikiECU Health [facility] Hospital [id number] Information: [id number] Basophils (Bld) [#/Vol] 0.1 10*3/uL Normal 0.0-0.2 [facility]; [facility] Work Phone: Comment on above: PATIENT WAS FASTINGP ERFORMED BY: Wing-Wheel Angel Culture CommunicationECU Health [facility]pl[facility] Hospital [id number] Information: [id number] Basophils/100 WBC (Bld) 1 % Normal [facility] Work Phone: Comment on above: PATIENT WAS FASTINGP ERFORMED BY: [place] [address]1070 [facility] [id number] Information: [id number] Eosinophils (Bld) [#/Vol] 0.1 {x10E3/uL} Normal 0.0-0.4 [facility] Work Phone: Comment on above: PATIENT WAS FASTINGP ERFORMED BY: [address] [id number] Information: [id number] Eosinophils (Bld) [#/Vol] 0.1 10*3/uL Normal 0.0-0.4 [facility]; [facility] Work Phone: Comment on above: PATIENT WAS FASTINGP ERFORMED BY: [address] [id number] Information: [id number] Eosinophils/100 WBC (Bld) 2 % Normal [facility] Work Phone: Comment on above: PATIENT WAS FASTINGP ERFORMED BY: [address] [id number] Information: [id number] Erythrocyte distribution width (RBC) [Ratio] 12.7 % Normal 12.3-15.4 [facility] Work Phone: Comment on above: PATIENT WAS FASTINGP ERFORMED BY: [address] [id number] Information: [id number] Hematocrit (Bld) [Volume fraction] 41.5 % Normal 34.0-46.6 [facility] Work Phone: Comment on above: PATIENT WAS FASTINGP ERFORMED BY: [address] [id number] Information: [id number] Hemoglobin (Bld) [Mass/Vol] 14.3 g/dL Normal 11.1-15.9 [facility] Work Phone: Comment on above: PATIENT WAS FASTINGP ERFORMED BY: [address] [id number] Information: [id number] Immature granulocytes (Bld) [#/Vol] 0.0 {x10E3/uL} Normal 0.0-0.1 [facility] Work Phone: Comment on above: PATIENT WAS FASTINGP ERFORMED BY: [address] [id number] Information: [id number] Immature granulocytes (Bld) [#/Vol] 0.0 10*3/uL Normal 0.0-0.1 [facility]; [facility] Work Phone: Comment on above: PATIENT WAS FASTINGP ERFORMED BY: [address] [id number] Information: [id number] Immature granulocytes/100 WBC (Bld) 0 % Normal [facility] Work Phone: Comment on above: PATIENT WAS FASTINGP ERFORMED BY: [address] [id number] Information: [id number] Lymphocytes (Bld) [#/Vol] 2.4 {x10E3/uL} Normal 0.7-3.1 [facility] Work Phone: Comment on above: PATIENT WAS FASTINGP ERFORMED BY: [address] [id number] Information: [id number] Lymphocytes (Bld) [#/Vol] 2.4 10*3/uL Normal 0.7-3.1 [facility]; [facility] Work Phone: Comment on above: PATIENT WAS FASTINGP ERFORMED BY: [address]Dublin [place] [id number] Information: [id number] Lymphocytes/100 WBC (Bld) 34 % Normal [facility] Work Phone: Comment on above: PATIENT WAS FASTINGP ERFORMED BY: [address] [id number] Information: [id number] MCH (RBC) [Entitic mass] 32.6 pg Normal 26.6-33.0 [facility] Work Phone: Comment on above: PATIENT WAS FASTINGP ERFORMED BY: [address] [id number] Information: [id number] MCHC (RBC) [Mass/Vol] 34.5 g/dL Normal 31.5-35.7 [facility] Work Phone: Comment on above: PATIENT WAS FASTINGP ERFORMED BY: [address] [id number] Information: [id number] MCV (RBC) [Entitic vol] 95 fL Normal 79-97 [facility] Work Phone: Comment on above: PATIENT WAS FASTINGP ERFORMED BY: [address] [id number] Information: [id number] Monocytes (Bld) [#/Vol] 0.5 {x10E3/uL} Normal 0.1-0.9 [facility] Work Phone: Comment on above: PATIENT WAS FASTINGP ERFORMED BY: [address] [id number] Information: [id number] Monocytes (Bld) [#/Vol] 0.5 10*3/uL Normal 0.1-0.9 [facility]; [facility] Work Phone: Comment on above: PATIENT WAS FASTINGP ERFORMED BY: [address] [id number] Information: [id number] Monocytes/100 WBC (Bld) 7 % Normal [facility] Work Phone: Comment on above: PATIENT WAS FASTINGP ERFORMED BY: TRESSA Miles6370 [facility] [id number] Information: [id number] Neutrophils (Bld) [#/Vol] 4.0 {x10E3/uL} Normal 1.4-7.0 [facility] Work Phone: Comment on above: PATIENT WAS FASTINGP ERFORMED BY: [facility]Saint [facility] Vgcbzc2343 [facility] [id number] Information: [id number],[id number] Neutrophils (Bld) [#/Vol] 4.0 10*3/uL Normal 1.4-7.0 [facility]; [facility] Work Phone: Comment on above: PATIENT WAS FASTINGP ERFORMED BY: [facility]Saint [facility] Gzyuen3988 [facility] [id number] Information: [id number] Neutrophils/100 WBC (Bld) 56 % Normal [facility] Work Phone: Comment on above: PATIENT WAS FASTINGP ERFORMED BY: [facility]Saint [facility] Ykzdcc5316 [facility] [id number] Information: [id number] Platelets (Bld) [#/Vol] 426 {x10E3/uL} Abnormal 150-379 [facility] Work Phone: Comment on above: PATIENT WAS FASTINGP ERFORMED BY: [facility]Asc[facility]6370 [facility] [id number] Information: [id number] Platelets (Bld) [#/Vol] 426 10*3/uL Abnormal 150-379 [facility]; [facility] Work Phone: Comment on above: PATIENT WAS FASTINGP ERFORMED BY: LabAsc[facility] Hospital6370 [facility] [id number] Information: [id number] RBC (Bld) [#/Vol] 4.38 {x10E6/uL} Normal 3.77-5.28 [facility] Internal Medicine Work Phone: Comment on above: PATIENT WAS FASTINGP ERFORMED BY: TRESSA LabSaint [facility] Lmxgvw2883 [facility] [id number] Information: [id number] RBC (Bld) [#/Vol] 4.38 10*6/uL Normal 3.77-5.28 [facility] Internal Medicine; [facility] Work Phone: Comment on above: PATIENT WAS FASTINGP ERFORMED BY: [facility] Wpgtam9239 [facility] [id number] Information: [id number] WBC (Bld) [#/Vol] 7.1 {x10E3/uL} Normal 3.4-10.8 [facility] Internal Medicine Work Phone: Comment on above: PATIENT WAS FASTINGP ERFORMED BY: LabSaint [facility] Qrszdt1300 [facility] [id number] Information: [id number] WBC (Bld) [#/Vol] 7.1 10*3/uL Normal 3.4-10.8 [facility] Internal Medicine; [facility] Work Phone: Comment on above: PATIENT WAS FASTINGP ERFORMED BY: [facility]Asc[facility]6370 [facility] [id number] Information: [id number] LIPID PANEL (57541)Ordered B y: Wine Steward on 01-01-2015 Cholesterol [Mass/Vol] 191 mg/dL Normal 100-199 [facility] Work Phone: Comment on above: PATIENT WAS FASTINGP ERFORMED BY: LabSaint [facility] Efayet1460 [facility] [id number] Cholesterol in HDL [Mass/Vol] 56 mg/dL Normal [facility] Work Phone: Comment on above: According to ATP-III Guidelines, HDL-C >59 mg/dL is considered anegative risk factor for CHD. PATIENT WAS FASTINGP ERFORMED BY: TRESSA StevenRik Hhgbdg8349 [facility] [id number] Cholesterol in LDL [Mass/Vol] 117 mg/dL Abnormal 0-99 [facility] Work Phone: Comment on above: PATIENT WAS FASTINGP ERFORMED BY: TRESSA Rodriguezlin6370 [facility] [id number] Cholesterol in LDL/Cholesterol in HDL [Mass ratio] 2.1 {ratio_units} Normal 0.0-3.2 [facility] Work Phone: Comment on above: LDL/HDL Ratio Men Wo men 1/2 Avg.Risk 1.0 1.5 Avg.Risk 3.6 3.2 2X Avg.Risk 6.2 5.0 3X Avg.Risk 8.0 6.1 PATIENT WAS FASTINGP ERFORMED BY: TRESSA Rodriguezlin6370 [facility] [id number] Cholesterol in VLDL [Mass/Vol] 18 mg/dL Normal 5-40 [facility] Work Phone: Comment on above: PATIENT WAS FASTINGP ERFORMED BY: TRESSA StevenRik Ehuxsi9950 [facility] [id number] Triglyceride [Mass/Vol] 90 mg/dL Normal 0-149 [facility] Work Phone: Comment on above: PATIENT WAS FASTINGP ERFORMED BY: TRESSA Rodriguezlin6370 [facility] [id number] METABOLIC PANEL, COMPREHENSI VE (38373)Ordered By: Wine Steward on 01-01-2015 Albumin [Mass/Vol] 4.5 g/dL Normal 3.5-5.5 [facility] Internal Medicine Work Phone: Comment on above: PATIENT WAS FASTINGP ERFORMED BY: TRESSA StevenRik RodriguezFtamar2680 [facility] [id number] Albumin/Globulin [Mass ratio] 1.8 {ratio} Normal 1.1-2.5 [facility] Work Phone: Comment on above: PATIENT WAS FASTINGP ERFORMED BY: TRESSA [facility] Iumfdb9590 Walker RoadDublin [place] [id number] ALP [Catalytic activity/Vol] 80 [iU]/L Normal 39-117 [facility] Work Phone: Comment on above: PATIENT WAS FASTINGP ERFORMED BY: TRESSA [facility] Uhklwm8506 [address] RoadDublin [place] [id number] ALP [Catalytic activity/Vol] 80 U/L Normal 39-117 [facility]; [facility] Work Phone: Comment on above: PATIENT WAS FASTINGP ERFORMED BY: TRESSA [facility] Cfdbsb0519 Walker RoadDublin [place] [id number] ALT [Catalytic activity/Vol] 12 [iU]/L Normal 0-32 [facility] Work Phone: Comment on above: PATIENT WAS FASTINGP ERFORMED BY: TRESSA LabColili RodriguezIqiqqu1291 [address] RoadDublin [place] [id number] ALT [Catalytic activity/Vol] 12 U/L Normal 0-32 [facility]; [facility] Work Phone: Comment on above: PATIENT WAS FASTINGP ERFORMED BY: TRESSA LabColili RodriguezHdhyxj0792 Walker RoadDublin [place] [id number] AST [Catalytic activity/Vol] 22 [iU]/L Normal 0-40 [facility] Work Phone: Comment on above: PATIENT WAS FASTINGP ERFORMED BY: TRESSA [facility] Uehmqf2231 [address] RoadDublin [place] [id number] AST [Catalytic activity/Vol] 22 U/L Normal 0-40 [facility]; [facility] Work Phone: Comment on above: PATIENT WAS FASTINGP ERFORMED BY: TRESSA [facility] Diccjc8692 [address] RoadDublin [place] [id number] Bilirubin [Mass/Vol] 0.3 mg/dL Normal 0.0-1.2 Comp [facility] Internal Medicine Work Phone: Comment on above: PATIENT WAS FASTINGP ERFORMED BY: TRESSA [facility] Ommljg7672 [address] RoadDublin [place] [id number] Calcium [Mass/Vol] 9.4 mg/dL Normal 8.7-10.2 [facility] Internal Medicine Work Phone: Comment on above: PATIENT WAS FASTINGP ERFORMED BY: [facility] Rpzdxy7207 [address] RoadDublin [place] [id number] Chloride [Moles/Vol] 100 mmol/L Normal 97-108 Comp [facility] Work Phone: Comment on above: PATIENT WAS FASTINGP ERFORMED BY: [facility] Popfkd9059 Walker RoadDublin [place] [id number] CO2 [Moles/Vol] 23 mmol/L Normal 18-29 [facility] Internal Medicine Work Phone: Comment on above: PATIENT WAS FASTINGP ERFORMED BY: [facility] Zddyoa5836 [address] RoadDublin [place] [id number] Creatinine [Mass/Vol] 0.68 mg/dL Normal 0.57-1.00 [facility] Work Phone: Comment on above: PATIENT WAS FASTINGP ERFORMED BY: LabSaint [facility] Fnlxoi1914 Walker RoadDublin [place] [id number] GFR/1.73 sq M predicted among blacks CKD-EPI (S/P/Bld) [Vol rate/Area] 111 mL/min/1.73 Normal [facility] Work Phone: Comment on above: PATIENT WAS FASTINGP ERFORMED BY: [facility] Nogdvj4336 [address] RoadDublin [place] [id number] GFR/1.73 sq M predicted among non-blacks CKD-EPI (S/P/Bld) [Vol rate/Area] 96 mL/min/1.73 Normal [facility] Work Phone: Comment on above: PATIENT WAS FASTINGP ERFORMED BY: [facility] Nqvkdw0673 [address] RoadDublin [place] [id number] Globulin (S) [Mass/Vol] 2.5 g/dL Normal 1.5-4.5 [facility] Work Phone: Comment on above: PATIENT WAS FASTINGP ERFORMED BY: TRESSA LabRik RodriguezOqvnqr8023 Walker RoadDublin [place] [id number] Glucose [Mass/Vol] 92 mg/dL Normal 65-99 [facility] Internal Medicine Work Phone: Comment on above: PATIENT WAS FASTINGP ERFORMED BY: TRESSA Rodriguezlin6370 [address] RoadDublin [place] [id number] Potassium [Moles/Vol] 4.6 mmol/L Normal 3.5-5.2 [facility] Internal Medicine Work Phone: Comment on above: PATIENT WAS FASTINGP ERFORMED BY: TRESSA LabRik RodriguezIyocxq6869 Walker RoadDublin [place] [id number] Protein [Mass/Vol] 7.0 g/dL Normal 6.0-8.5 [facility] Internal Medicine Work Phone: Comment on above: PATIENT WAS FASTINGP ERFORMED BY: TRESSA Rodriguezlin6370 [address] RoadDublin [place] [id number] Sodium [Moles/Vol] 141 mmol/L Normal 134-144 [facility] Internal Medicine Work Phone: Comment on above: PATIENT WAS FASTINGP ERFORMED BY: TRESSA Miles6370 [address] RoadDublin [place] [id number] Urea nitrogen [Mass/Vol] 19 mg/dL Normal 6-24 [facility] Internal Medicine Work Phone: Comment on above: PATIENT WAS FASTINGP ERFORMED BY: TRESSA Rodriguezlin6370 [address] RoadD[address] [place] [id number] Urea nitrogen/Creatinine [Mass ratio] 28 mg/mg Abnormal 9-23 [facility] Internal Medicine Work Phone: Comment on above: PATIENT WAS FASTINGP ERFORMED BY: TRESSA Rodriguezlin6370 [address] RoadDublin [place] [id number] Microscopic ExaminationOrder ed By: Wine Steward on 01-01-2015 Bacteria LM.HPF (Urine sed) [#/Area] None seen Normal Comprehensi Internal Medicine Work Phone: Comment on above: PATIENT WAS FASTINGP ERFORMED BY: CB [facility] Bqmhna4005 [address] RoadDublin [place] [id number] Epithelial cells LM.HPF (Urine sed) [#/Area] 0-10 Normal 0 - 10 [facility] Work Phone: Comment on above: PATIENT WAS FASTINGP ERFORMED BY: TRESSA [facility] Jqqeok2725 [address] RoadDublin [place] [id number] Mucus Ql (Urine sed) Present Normal Comp rehensive Internal Medicine Work Phone: Comment on above: PATIENT WAS FASTINGP ERFORMED BY: TRESSA [facility] Parneu4521 [address] RoadDublin [place] [id number] RBC LM.HPF (Urine sed) [#/Area] 0-2 Normal 0 - 2 [facility] Work Phone: Comment on above: PATIENT WAS FASTINGP ERFORMED BY: TRESSA [facility] Bmiuim0716 [address] RoadDublin [place] [id number] WBC LM.HPF (Urine sed) [#/Area] 0-5 Normal 0 - 5 [facility] Work Phone: Comment on above: PATIENT WAS FASTINGP ERFORMED BY: TRESSA [facility] Fsstzo9856 [address] RoadDublin [place] [id number] URINALYSIS, W/ MICRO (86520) Ordered By: Wine Steward on 01-01-2015 Appearance (U) Clear Normal Comprehens yelena Internal Medicine Work Phone: Comment on above: PATIENT WAS FASTINGP ERFORMED BY: TRESSA [facility] Gqxchm6760 [address] RoadDublin [place] [id number] Bilirubin Ql (U) Negative Normal Comprehe nsive Internal Medicine Work Phone: Comment on above: PATIENT WAS FASTINGP ERFORMED BY: TRESSA [facility] Gzfeoj7870 [address] RoadDublin [place] [id number] Bilirubin Ql (U) Negative Normal Comprehe nsive Internal Medicine; [facility] Work Phone: Comment on above: PATIENT WAS FASTINGP ERFORMED BY: TRESSA [facility] Hkozrl2740 [address] RoadDublin [place] [id number] Color (U) Yellow Normal [facility] Work Phone: Comment on above: PATIENT WAS FASTINGP ERFORMED BY: TRESSA [facility] Qbckqe5827 [address] RoadDublin [place] [id number] Glucose Ql (U) Negative Normal Comprehens yelena Internal Medicine Work Phone: Comment on above: PATIENT WAS FASTINGP ERFORMED BY: TRESSA [facility] Ycavbb5797 [address] RoadDublin [place] [id number] Glucose Ql (U) Negative Normal Comprehens yelena Internal Medicine; [facility] Work Phone: Comment on above: PATIENT WAS FASTINGP ERFORMED BY: TRESSA [facility] Qzjaad3519 [address] RoadDublin [place] [id number] Hemoglobin Ql (U) Negative Normal Compreh ensive Internal Medicine Work Phone: Comment on above: PATIENT WAS FASTINGP ERFORMED BY: TRESSA [facility] Cypqiw7254 [address] RoadDublin [place] [id number] Hemoglobin Ql (U) Negative Normal Compreh ensive Internal Medicine; [facility] Work Phone: Comment on above: PATIENT WAS FASTINGP ERFORMED BY: TRESSA [facility] Lehzqo4936 [address] RoadDublin [place] [id number] Ketones Ql (U) Negative Normal Comprehens yelena Internal Medicine Work Phone: Comment on above: PATIENT WAS FASTINGP ERFORMED BY: TRESSA [facility] Luxiza8558 [address] RoadDublin [place] [id number] Ketones Ql (U) Negative Normal Comprehens yelena Internal Medicine; [facility] Work Phone: Comment on above: PATIENT WAS FASTINGP ERFORMED BY: TRESSA [facility] Plexaf1107 [address] RoadDublin [place] [id number] Leukocyte esterase Test strip Ql (U) Negative Normal [facility] Work Phone: Comment on above: PATIENT WAS FASTINGP ERFORMED BY: TRESSA [facility] Evxfeh5052 [address] RoadDublin [place] [id number] Leukocyte esterase Test strip Ql (U) Negative Normal [facility]; [facility] Work Phone: Comment on above: PATIENT WAS FASTINGP ERFORMED BY: TRESSA [facility] Uqtcrz5063 Walekr RoadDublin [place] [id number] Microscopic observation LM Nom (Urine sed) MICRON Normal [facility] Work Phone: Comment on above: Microscopic follows if indicated. PATIENT WAS FASTINGP ERFORMED BY: TRESSA [facility] Qqxkcw9529 [address] RoadDublin [place] [id number] Microscopic observation LM Nom (Urine sed) See below: Normal [facility] Work Phone: Comment on above: Microscopic was radha cated and was performed. PATIENT WAS FASTINGP ERFORMED BY: TRESSA [facility] Fkyhcx3709 [address] RoadDublin [place] [id number] Nitrite Ql (U) Negative Normal Comprehens yelena Internal Medicine Work Phone: Comment on above: PATIENT WAS FASTINGP ERFORMED BY: TRESSA [facility] Cvjkqj5762 [address] RoadDublin [place] [id number] Nitrite Ql (U) Negative Normal Comprehens yelena Internal Medicine; [facility] Work Phone: Comment on above: PATIENT WAS FASTINGP ERFORMED BY: TRESSA [facility] Ghnhvu7353 [address] RoadDublin [place] [id number] pH (U) 6.5 [pH] Normal 5.0-7.5 [facility] Work Phone: Comment on above: PATIENT WAS FASTINGP ERFORMED BY: TRESSA LabColili RodriguezGfnktn8275 [address] RoadDublin [place] [id number] Protein Ql (U) Negative Normal Comprehens yelena Internal Medicine Work Phone: Comment on above: PATIENT WAS FASTINGP ERFORMED BY: TRESSA [facility] Aqmayz8938 [address] RoadDublin [place] [id number] Protein Ql (U) Negative Normal Comprehens yelena Internal Medicine; [facility] Work Phone: Comment on above: PATIENT WAS FASTINGP ERFORMED BY: TRESSA [facility] Kxxybe1136 [address] RoadDublin [place] [id number] Specific gravity (U) [Rel density] 1.023 1 Normal 1.005-1.03 0 [facility] Work Phone: Comment on above: PATIENT WAS FASTINGP ERFORMED BY: TRESSA [facility] Nnbkwg3378 [address] RoadDublin [place] [id number] Urobilinogen (U) [Mass/Vol] 0.2 mg/dL Normal 0.0-1.9 [facility]; [facility] Work Phone: Comment on above: PATIENT WAS FASTINGP ERFORMED BY: CB [facility] Aczhsa3387 [address] RoadDublin [place] [id number] Urobilinogen Test strip (U) [Mass/Vol] 0.2 mg/dL Normal 0.0-1.9 Comprehensi Internal Medicine Work Phone: Comment on above: PATIENT WAS FASTINGP ERFORMED BY: CB [facility] Nolviy8477 [address] [facility] Centerblin [place] [id number] Lipid Panel (44442)Ordered B y: Wine Steward on 07-07-2014 Cholesterol [Mass/Vol] 183 mg/dL Normal 100-199 [facility] Internal Medicine Work Phone: Comment on above: PATIENT WAS FASTINGP ERFORMED BY: TRESSA [facility] Gqbdjs9959 [address] [facility]in [place] [id number] Cholesterol in HDL [Mass/Vol] 59 mg/dL Normal [facility] Internal Medicine Work Phone: Comment on above: According to ATP-III Guidelines, HDL-C >59 mg/dL is considered anegative risk factor for CHD. PATIENT WAS FASTINGP ERFORMED BY: CB [facility] Jhimeo8070 [address] [facility]in [place] [id number] Cholesterol in LDL [Mass/Vol] 100 mg/dL Abnormal 0-99 [facility] Internal Medicine Work Phone: Comment on above: PATIENT WAS FASTINGP ERFORMED BY: CB [facility] Vheprb0708 [address] [facility]in [place] [id number] Cholesterol in LDL/Cholesterol in HDL [Mass ratio] 1.7 {ratio_units} Normal 0.0-3.2 [facility] Work Phone: Comment on above: LDL/HDL Ratio Men Wo men 1/2 Avg.Risk 1.0 1.5 Avg.Risk 3.6 3.2 2X Avg.Risk 6.2 5.0 3X Avg.Risk 8.0 6.1 PATIENT WAS FASTINGP ERFORMED BY: TRESSA StevenRik Byhhuj7894 [facility] [id number] Cholesterol in VLDL [Mass/Vol] 24 mg/dL Normal 5-40 [facility] Work Phone: Comment on above: PATIENT WAS FASTINGP ERFORMED BY: TRESSA StevenAlba Cnaguc2772 [facility] [id number] Triglyceride [Mass/Vol] 122 mg/dL Normal 0-149 [facility] Work Phone: Comment on above: PATIENT WAS FASTINGP ERFORMED BY: TRESSA Rodriguezlin6370 [facility] [id number] Metabolic Panel, Comprehensi ve (98095)Ordered By: Wine Steward on 07-07-2014 Albumin [Mass/Vol] 4.5 g/dL Normal 3.5-5.5 [facility] Internal Medicine Work Phone: Comment on above: PATIENT WAS FASTINGP ERFORMED BY: TRESSA Rodriguezlin6370 [facility] [id number] Information: 683562,[id number] Albumin/Globulin [Mass ratio] 1.7 {ratio} Normal 1.1-2.5 [facility] Work Phone: Comment on above: PATIENT WAS FASTINGP ERFORMED BY: TRESSA Arcos Cqzqjj2988 [facility] [id number] Information: 936566,G81813 ALP [Catalytic activity/Vol] 76 [iU]/L Normal 39-117 [facility] Work Phone: Comment on above: PATIENT WAS FASTINGP ERFORMED BY: TRESSA StevenMdlili RodriguezVbvrth7262 [facility] [id number] Information: [id number],S98104 ALP [Catalytic activity/Vol] 76 U/L Normal 39-117 [facility]; [facility] Work Phone: Comment on above: PATIENT WAS FASTINGP ERFORMED BY: TRESSA LabSaint [facility] Mdonov1841 [address] Roadblin [place] [id number] Information: 333997,[id number] ALT [Catalytic activity/Vol] 14 [iU]/L Normal 0-32 [facility] Work Phone: Comment on above: PATIENT WAS FASTINGP ERFORMED BY: [facility] Dpyeqn2938 [address] Roadblin [place] [id number] Information: [id number],[id number] ALT [Catalytic activity/Vol] 14 U/L Normal 0-32 [facility]; [facility] Work Phone: Comment on above: PATIENT WAS FASTINGP ERFORMED BY: TRESSA LabSaint [facility] Sgkiwj9518 [address] Roadblin [place] [id number] Information: [id number],[id number] AST [Catalytic activity/Vol] 19 [iU]/L Normal 0-40 [facility] Work Phone: Comment on above: PATIENT WAS FASTINGP ERFORMED BY: LabNortheast Regional Medical CenterAkdgqk8625 Walker RoadHugh Chatham Memorial Hospitalin [place] [id number] Information: 562874,[id number] AST [Catalytic activity/Vol] 19 U/L Normal 0-40 [facility]; [facility] Work Phone: Comment on above: PATIENT WAS FASTINGP ERFORMED BY: TRESSA [facility]6370 [address] [facility] [id number] Information: [id number],[id number] Bilirubin [Mass/Vol] 0.3 mg/dL Normal 0.0-1.2 [facility] Work Phone: Comment on above: PATIENT WAS FASTINGP ERFORMED BY: [facility] Kdrpyy8760 [address] [facility] Centerbl[facility] [place] [id number] Information: 966534,[id number] Calcium [Mass/Vol] 9.6 mg/dL Normal 8.7-10.2 [facility] Internal Medicine Work Phone: Comment on above: PATIENT WAS FASTINGP ERFORMED BY: [facility] Vwmbnj3122 [facility] [id number] Information: 483508,[id number] Chloride [Moles/Vol] 100 mmol/L Normal 97-108 Comp rehensive Internal Medicine Work Phone: Comment on above: PATIENT WAS FASTINGP ERFORMED BY: [facility]lin6370 [facility] [id number] Information: 260471,[id number] CO2 [Moles/Vol] 21 mmol/L Normal 18-29 [facility] Internal [facility] Work Phone: Comment on above: PATIENT WAS FASTINGP ERFORMED BY: [facility]6370 [facility] [id number] Information: 410903,[id number] Creatinine [Mass/Vol] 0.62 mg/dL Normal 0.57-1.00 [facility] Work Phone: Comment on above: PATIENT WAS FASTINGP ERFORMED BY: [facility]6370 [facility] [id number] Information: [id number],[id number] GFR/1.73 sq M predicted among blacks CKD-EPI (S/P/Bld) [Vol rate/Area] 115 mL/min/1.73 Normal [facility] Work Phone: Comment on above: PATIENT WAS FASTINGP ERFORMED BY: [facility]6370 [facility] [id number] Information: 182591,P24634 GFR/1.73 sq M predicted among non-blacks CKD-EPI (S/P/Bld) [Vol rate/Area] 100 mL/min/1.73 Normal [facility] Work Phone: Comment on above: PATIENT WAS FASTINGP ERFORMED BY: LabCoSt. Mary's HospitalLgnufy9190 [facility] [id number] Information: 967614,[id number] Globulin (S) [Mass/Vol] 2.7 g/dL Normal 1.5-4.5 [facility] Work Phone: Comment on above: PATIENT WAS FASTINGP ERFORMED BY: TRESSA [facility] Opgidy0833 [address] Roadblin [place] [id number] Information: [id number],[id number] Glucose [Mass/Vol] 94 mg/dL Normal 65-99 [facility] Internal Medicine Work Phone: Comment on above: PATIENT WAS FASTINGP ERFORMED BY: [facility] Acjlbl0311 Walker RoadHugh Chatham Memorial Hospitalin [place] [id number] Information: 003349,[id number] Potassium [Moles/Vol] 4.5 mmol/L Normal 3.5-5.2 [facility] Internal Medicine Work Phone: Comment on above: PATIENT WAS FASTINGP ERFORMED BY: [facility] Kcirbt0107 Walker RoadHugh Chatham Memorial Hospitalin [place] [id number] Information: [id number],[id number] Protein [Mass/Vol] 7.2 g/dL Normal 6.0-8.5 [facility] Internal Medicine Work Phone: Comment on above: PATIENT WAS FASTINGP ERFORMED BY: [facility] Rsjtif2509 Walker RoadHugh Chatham Memorial Hospitalin [place] [id number] Information: 985996,[id number] Sodium [Moles/Vol] 143 mmol/L Normal 134-144 [facility] Internal Medicine Work Phone: Comment on above: PATIENT WAS FASTINGP ERFORMED BY: [facility] Pmmnvj4289 [address] [facility] [id number] Information: [id number] Urea nitrogen [Mass/Vol] 16 mg/dL Normal 6-24 [facility] Work Phone: Comment on above: PATIENT WAS FASTINGP ERFORMED BY: [facility] Yxjdic2110 [address] Roadblin [place] [id number] Information: 023906,G40194 Urea nitrogen/Creatinine [Mass ratio] 26 mg/mg Abnormal 9-23 [facility] Work Phone: Comment on above: PATIENT WAS FASTINGP ERFORMED BY: [facility] Kaqjkw9859 [address] [facility] [id number] Information: 749367,L15072 CBC W/AUTO DIFF WBC (84282)O rdered By: Wine Steward on 06-04-2014 Basophils (Bld) [#/Vol] 0.0 {x10E3/uL} Normal 0.0-0.2 [facility] Work Phone: Comment on above: PATIENT NOT FASTINGP ERFORMED BY: [address] [id number] Information: [id number] Basophils (Bld) [#/Vol] 0.0 10*3/uL Normal 0.0-0.2 [facility]; [facility] Work Phone: Comment on above: PATIENT NOT FASTINGP ERFORMED BY: [address] [id number] Information: 277003,F80611 Basophils/100 WBC (Bld) 1 % Normal 0-3 [facility] Work Phone: Comment on above: The percent (%) diff erential reference intervals for normal cell typeswill be removed from patient reports beginning June 08, 2014,consistent with CAP standards. PATIENT NOT FASTINGP ERFORMED BY: [facility]6370 [facility] [id number] Information: 732685,P06240 Eosinophils (Bld) [#/Vol] 0.1 {x10E3/uL} Normal 0.0-0.4 [facility] Work Phone: Comment on above: PATIENT NOT FASTINGP ERFORMED BY: [facility]6370 [facility] [id number] Information: 293780,X85086 Eosinophils (Bld) [#/Vol] 0.1 10*3/uL Normal 0.0-0.4 [facility]; [facility] Work Phone: Comment on above: PATIENT NOT FASTINGP ERFORMED BY: [place] 9151070 [facility] [id number] Information: 609969,P48339 Eosinophils/100 WBC (Bld) 1 % Normal 0-5 [facility] Work Phone: Comment on above: The percent (%) diff erential reference intervals for normal cell typeswill be removed from patient reports beginning June 08, 2014,consistent with CAP standards. PATIENT NOT FASTINGP ERFORMED BY: [place] 9151070 [facility] [id number] Information: [id number] Erythrocyte distribution width (RBC) [Ratio] 13.4 % Normal 12.3-15.4 [facility] Work Phone: Comment on above: PATIENT NOT FASTINGP ERFORMED BY: LabRobert Ville 4242670 [facility] [id number] Information: [id number] Hematocrit (Bld) [Volume fraction] 40.7 % Normal 34.0-46.6 [facility] Work Phone: Comment on above: PATIENT NOT FASTINGP ERFORMED BY: [place] 9151070 [facility] [id number] Information: [id number] Hemoglobin (Bld) [Mass/Vol] 13.8 g/dL Normal 11.1-15.9 [facility] Work Phone: Comment on above: PATIENT NOT FASTINGP ERFORMED BY: [place] [id number] [facility] [id number] Information: [id number] Immature granulocytes (Bld) [#/Vol] 0.0 {x10E3/uL} Normal 0.0-0.1 [facility] Work Phone: Comment on above: PATIENT NOT FASTINGP ERFORMED BY: [facility]6370 [facility] [id number] Information: [id number] Immature granulocytes (Bld) [#/Vol] 0.0 10*3/uL Normal 0.0-0.1 [facility]; [facility] Work Phone: Comment on above: PATIENT NOT FASTINGP ERFORMED BY: TRESSA [facility]Asc[facility]6370 [facility] [id number] Information: [id number] Immature granulocytes/100 WBC (Bld) 0 % Normal 0-2 [facility] Work Phone: Comment on above: The percent (%) diff erential reference intervals for normal cell typeswill be removed from patient reports beginning June 08, 2014,consistent with CAP standards. PATIENT NOT FASTINGP ERFORMED BY: [facility]6370 [facility] [id number] Information: [id number] Lymphocytes (Bld) [#/Vol] 2.7 {x10E3/uL} Normal 0.7-3.1 [facility] Work Phone: Comment on above: PATIENT NOT FASTINGP ERFORMED BY: [facility]6370 [facility] [id number] Information: [id number] Lymphocytes (Bld) [#/Vol] 2.7 10*3/uL Normal 0.7-3.1 [facility]; [facility] Work Phone: Comment on above: PATIENT NOT FASTINGP ERFORMED BY: TRESSA [facility]6370 [facility] [id number] Information: 093383,[id number] Lymphocytes/100 WBC (Bld) 35 % Normal 14-46 [facility] Work Phone: Comment on above: The percent (%) diff erential reference intervals for normal cell typeswill be removed from patient reports beginning June 08, 2014,consistent with CAP standards. PATIENT NOT FASTINGP ERFORMED BY: TRESSA [facility]Asc[facility]6370 [facility] [id number] Information: [id number] MCH (RBC) [Entitic mass] 31.5 pg Normal 26.6-33.0 [facility] Work Phone: Comment on above: PATIENT NOT FASTINGP ERFORMED BY: [facility]6370 [facility] [id number] Information: [id number] MCHC (RBC) [Mass/Vol] 33.9 g/dL Normal 31.5-35.7 [facility] Work Phone: Comment on above: PATIENT NOT FASTINGP ERFORMED BY: [address] [id number] Information: 762489,[id number] MCV (RBC) [Entitic vol] 93 fL Normal 79-97 [facility] Work Phone: Comment on above: PATIENT NOT FASTINGP ERFORMED BY: [address] [id number] Information: [id number],[id number] Monocytes (Bld) [#/Vol] 0.4 {x10E3/uL} Normal 0.1-0.9 [facility] Work Phone: Comment on above: PATIENT NOT FASTINGP ERFORMED BY: [place] 9151070 [facility] [id number] Information: [id number] Monocytes (Bld) [#/Vol] 0.4 10*3/uL Normal 0.1-0.9 [facility]; [facility] Work Phone: Comment on above: PATIENT NOT FASTINGP ERFORMED BY: [place] 9151070 [facility] [id number] Information: [id number] Monocytes/100 WBC (Bld) 5 % Normal 4-12 [facility] Work Phone: Comment on above: The percent (%) diff erential reference intervals for normal cell typeswill be removed from patient reports beginning June 08, 2014,consistent with CAP standards. PATIENT NOT FASTINGP ERFORMED BY: [facility]6370 [facility] [id number] Information: [id number] Neutrophils (Bld) [#/Vol] 4.6 {x10E3/uL} Normal 1.4-7.0 [facility] Work Phone: Comment on above: PATIENT NOT FASTINGP ERFORMED BY: TRESSA Miles63[facility] [id number] Information: [id number] Neutrophils (Bld) [#/Vol] 4.6 10*3/uL Normal 1.4-7.0 [facility]; [facility] Work Phone: Comment on above: PATIENT NOT FASTINGP ERFORMED BY: TRESSA Miles6370 [facility] [id number] Information: [id number],[id number] Neutrophils/100 WBC (Bld) 58 % Normal 40-74 [facility] Work Phone: Comment on above: The percent (%) diff erential reference intervals for normal cell typeswill be removed from patient reports beginning June 08, 2014,consistent with CAP standards. PATIENT NOT FASTINGP ERFORMED BY: TRESSA Miles6370 [facility] [id number] Information: [id number] Platelets (Bld) [#/Vol] 417 {x10E3/uL} Abnormal 150-379 [facility] Work Phone: Comment on above: PATIENT NOT FASTINGP ERFORMED BY: TRESSA Miles6370 [facility] [id number] Information: [id number],[id number] Platelets (Bld) [#/Vol] 417 10*3/uL Abnormal 150-379 [facility]; [facility] Internal Medicine Work Phone: Comment on above: PATIENT NOT FASTINGP ERFORMED BY: TRESSA LabCo Bieagk1822 [facility] [id number] Information: [id number],[id number] RBC (Bld) [#/Vol] 4.38 {x10E6/uL} Normal 3.77-5.28 [facility] Internal Medicine Work Phone: Comment on above: PATIENT NOT FASTINGP ERFORMED BY: TRESSA LabCo Yemwfw7463 [facility] [id number] Information: [id number] RBC (Bld) [#/Vol] 4.38 10*6/uL Normal 3.77-5.28 [facility] Internal Medicine; [facility] Work Phone: Comment on above: PATIENT NOT FASTINGP ERFORMED BY: TRESSA [facility] Vyjdwo4636 [facility] [id number] Information: [id number] WBC (Bld) [#/Vol] 7.7 {x10E3/uL} Normal 3.4-10.8 [facility] Internal Medicine Work Phone: Comment on above: PATIENT NOT FASTINGP ERFORMED BY: TRESSA [facility] Aczruj7480 [facility] [id number] Information: 523133,[id number] WBC (Bld) [#/Vol] 7.7 10*3/uL Normal 3.4-10.8 [facility] Internal Medicine; [facility] Work Phone: Comment on above: PATIENT NOT FASTINGP ERFORMED BY: [facility] Oifybr1127 [facility] [id number] Information: [id number] METABOLIC PANEL, COMPREHENSI VE (09345)Ordered By: Wine Steward on 06-04-2014 Albumin [Mass/Vol] 4.6 g/dL Normal 3.5-5.5 [facility] Internal Medicine Work Phone: Comment on above: PATIENT NOT FASTINGP ERFORMED BY: TRESSA [facility] Hkrbms0264 [facility] [id number] Albumin/Globulin [Mass ratio] 1.8 {ratio} Normal 1.1-2.5 [facility] Internal Medicine Work Phone: Comment on above: PATIENT NOT FASTINGP ERFORMED BY: TRESSA [facility] Hlkqhs6408 [facility] [place] [id number] ALP [Catalytic activity/Vol] 86 [iU]/L Normal 39-117 [facility] Internal Medicine Work Phone: Comment on above: PATIENT NOT FASTINGP ERFORMED BY: TRESSA [facility] Cwnqef8799 Walker RoadDublin [place] [id number] ALP [Catalytic activity/Vol] 86 U/L Normal 39-117 [facility]; [facility] Work Phone: Comment on above: PATIENT NOT FASTINGP ERFORMED BY: CB [facility] Bsmadp1582 Walker RoadDublin [place] [id number] ALT [Catalytic activity/Vol] 15 [iU]/L Normal 0-32 [facility] Work Phone: Comment on above: PATIENT NOT FASTINGP ERFORMED BY: CB [facility] Hfcuju1257 Walker RoadDublin [place] [id number] ALT [Catalytic activity/Vol] 15 U/L Normal 0-32 [facility]; [facility] Work Phone: Comment on above: PATIENT NOT FASTINGP ERFORMED BY: TRESSA [facility] Iekorh5261 [address] RoadDublin [place] [id number] AST [Catalytic activity/Vol] 21 [iU]/L Normal 0-40 [facility] Work Phone: Comment on above: PATIENT NOT FASTINGP ERFORMED BY: TRESSA [facility] Sqrrst6[address] RoadDublin [place] [id number] AST [Catalytic activity/Vol] 21 U/L Normal 0-40 [facility]; [facility] Work Phone: Comment on above: PATIENT NOT FASTINGP ERFORMED BY: CB [facility] Mqkody2066 [address] RoadDublin [place] [id number] Bilirubin [Mass/Vol] 0.2 mg/dL Normal 0.0-1.2 [facility] Internal Medicine Work Phone: Comment on above: PATIENT NOT FASTINGP ERFORMED BY: CB [facility] Xwugfz8277 Walker RoadDublin [place] [id number] Calcium [Mass/Vol] 10.0 mg/dL Normal 8.7-10.2 [facility] Internal Medicine Work Phone: Comment on above: PATIENT NOT FASTINGP ERFORMED BY: CB [facility] Ogpisa2962 [address] RoadDublin [place] [id number] Chloride [Moles/Vol] 100 mmol/L Normal 97-108 Comp rehensive Internal Medicine Work Phone: Comment on above: PATIENT NOT FASTINGP ERFORMED BY: TRESSA [facility] Rxdqek9894 [address] [facility] [id number] CO2 [Moles/Vol] 24 mmol/L Normal 18-29 [facility] Internal [facility] Work Phone: Comment on above: PATIENT NOT FASTINGP ERFORMED BY: LabCoSt. Mary's HospitalCjlwld0385 [facility] [id number] Creatinine [Mass/Vol] 0.66 mg/dL Normal 0.57-1.00 [facility] Work Phone: Comment on above: PATIENT NOT FASTINGP ERFORMED BY: [facility] Abgmwg0680 [facility] [id number] GFR/1.73 sq M predicted among blacks CKD-EPI (S/P/Bld) [Vol rate/Area] 113 mL/min/1.73 Normal [facility] Work Phone: Comment on above: PATIENT NOT FASTINGP ERFORMED BY: [facility] Vqwlff0773 [facility] [id number] GFR/1.73 sq M predicted among non-blacks CKD-EPI (S/P/Bld) [Vol rate/Area] 98 mL/min/1.73 Normal [facility] Work Phone: Comment on above: PATIENT NOT FASTINGP ERFORMED BY: [facility] Thnsfo1630 [facility] [id number] Globulin (S) [Mass/Vol] 2.6 g/dL Normal 1.5-4.5 [facility] Work Phone: Comment on above: PATIENT NOT FASTINGP ERFORMED BY: [facility] Oenbpv7946 [facility] [id number] Glucose [Mass/Vol] 88 mg/dL Normal 65-99 [facility] Internal Medicine Work Phone: Comment on above: PATIENT NOT FASTINGP ERFORMED BY: TRESSA [facility] Xpxadl3950 [facility] [place] [id number] Potassium [Moles/Vol] 4.4 mmol/L Normal 3.5-5.2 [facility] Work Phone: Comment on above: PATIENT NOT FASTINGP ERFORMED BY: TRESSA LabAlbarp Tkzwie1811 [facility] [place] [id number] Protein [Mass/Vol] 7.2 g/dL Normal 6.0-8.5 [facility] Internal Medicine Work Phone: Comment on above: PATIENT NOT FASTINGP ERFORMED BY: TRESSA [facility] Wghzqe1334 Walker RoadHugh Chatham [facility] Hospitalin [place] [id number] Sodium [Moles/Vol] 141 mmol/L Normal 134-144 [facility] Internal Medicine Work Phone: Comment on above: PATIENT NOT FASTINGP ERFORMED BY: TRESSA LabSaint [facility] Szubiu9263 [address] [facility] [id number] Urea nitrogen [Mass/Vol] 11 mg/dL Normal 6-24 [facility] Work Phone: Comment on above: PATIENT NOT FASTINGP ERFORMED BY: TRESSA LabAlba Skgqni8461 [address] [facility] [id number] Urea nitrogen/Creatinine [Mass ratio] 17 mg/mg Normal 9-23 [facility] Internal Medicine Work Phone: Comment on above: PATIENT NOT FASTINGP ERFORMED BY: TRESSA LabSaint [facility] Cuylar0086 [address] [facility] [id number] TSH (57061)Ordered By: Syste m [employer] Deburrer on 06-04-2014 TSH Qn 0.994 {uIU/mL} Normal 0.450-4.50 0 [facility] Work Phone: Comment on above: PATIENT NOT FASTINGP ERFORMED BY: TRESSA [facility] Jgmrtu9927 [facility]in [place] [id number] CBC, Platelets & Auto Diff ( 82690)Ordered By: Wine Steward on 04-20-2014 Basophils (Bld) [#/Vol] 0.1 {x10E3/uL} Normal 0.0-0.2 [facility] Work Phone: Comment on above: PATIENT NOT FASTINGP ERFORMED BY: TRESSA Miles6370 [facility] [id number] Information: [id number] Basophils (Bld) [#/Vol] 0.1 10*3/uL Normal 0.0-0.2 [facility]; [facility] Work Phone: Comment on above: PATIENT NOT FASTINGP ERFORMED BY: TRESSA Arcos Parvwq5070 [facility] [id number] Information: [id number] Basophils/100 WBC (Bld) 1 % Normal 0-3 [facility] Work Phone: Comment on above: PATIENT NOT FASTINGP ERFORMED BY: TRESSA Arcos Lcmanw9078 [facility] [id number] Information: 839833,[id number] Eosinophils (Bld) [#/Vol] 0.0 {x10E3/uL} Normal 0.0-0.4 [facility] Work Phone: Comment on above: PATIENT NOT FASTINGP ERFORMED BY: TRESSA Arcos Ktpmzb[address] [id number] Information: 991145,[id number] Eosinophils (Bld) [#/Vol] 0.0 10*3/uL Normal 0.0-0.4 [facility]; [facility] Work Phone: Comment on above: PATIENT NOT FASTINGP ERFORMED BY: TRESSA [address] [id number] Information: 547097,[id number] Eosinophils/100 WBC (Bld) 0 % Normal 0-5 [facility] Work Phone: Comment on above: PATIENT NOT FASTINGP ERFORMED BY: TRESSA LabRobert Ville 4242670 [facility] [id number] Information: 642753,[id number] Erythrocyte distribution width (RBC) [Ratio] 13.6 % Normal 12.3-15.4 [facility] Work Phone: Comment on above: PATIENT NOT FASTINGP ERFORMED BY: TRESSA Abbott [facility] [id number] Information: 483960,[id number] Hematocrit (Bld) [Volume fraction] 40.7 % Normal 34.0-46.6 [facility] Work Phone: Comment on above: PATIENT NOT FASTINGP ERFORMED BY: TRESSA Rodriguez[address] [id number] Information: 529446,[id number] Hemoglobin (Bld) [Mass/Vol] 13.4 g/dL Normal 11.1-15.9 [facility] Work Phone: Comment on above: PATIENT NOT FASTINGP ERFORMED BY: TRESSA Arcos Fizlvb80[address] [id number] Information: [id number] Immature granulocytes (Bld) [#/Vol] 0.0 {x10E3/uL} Normal 0.0-0.1 [facility] Work Phone: Comment on above: PATIENT NOT FASTINGP ERFORMED BY: TRESSA Rodriguez[address] [id number] Information: 045733,[id number] Immature granulocytes (Bld) [#/Vol] 0.0 10*3/uL Normal 0.0-0.1 [facility]; [facility] Work Phone: Comment on above: PATIENT NOT FASTINGP ERFORMED BY: TRESSA Arcos Qbcxpl1195 [facility] [id number] Information: [id number] Immature granulocytes/100 WBC (Bld) 0 % Normal 0-2 [facility] Work Phone: Comment on above: PATIENT NOT FASTINGP ERFORMED BY: TRESSA Arcos Pveqpp0806 [facility] [id number] Information: [id number] Lymphocytes (Bld) [#/Vol] 2.2 {x10E3/uL} Normal 0.7-3.1 [facility] Work Phone: Comment on above: PATIENT NOT FASTINGP ERFORMED BY: TRESSA Miles6370 [facility] [id number] Information: 423227,[id number] Lymphocytes (Bld) [#/Vol] 2.2 10*3/uL Normal 0.7-3.1 [facility]; [facility] Work Phone: Comment on above: PATIENT NOT FASTINGP ERFORMED BY: TRESSA HarrisSaint [facility] Xvrbdn4614 [facility] [id number] Information: [id number],[id number] Lymphocytes/100 WBC (Bld) 20 % Normal 14-46 [facility] Work Phone: Comment on above: PATIENT NOT FASTINGP ERFORMED BY: TRESSA Harris[address] [id number] Information: 695721,[id number] MCH (RBC) [Entitic mass] 31.0 pg Normal 26.6-33.0 [facility] Work Phone: Comment on above: PATIENT NOT FASTINGP ERFORMED BY: TRESSA Rodriguez[address] [id number] Information: 047582,[id number] MCHC (RBC) [Mass/Vol] 32.9 g/dL Normal 31.5-35.7 [facility] Work Phone: Comment on above: PATIENT NOT FASTINGP ERFORMED BY: TRESSA LabRobert Ville 4242670 [facility] [id number] Information: 635965,[id number] MCV (RBC) [Entitic vol] 94 fL Normal 79-97 [facility] Work Phone: Comment on above: PATIENT NOT FASTINGP ERFORMED BY: TRESSA LabRobert Ville 4242670 [facility] [id number] Information: [id number] Monocytes (Bld) [#/Vol] 1.4 {x10E3/uL} Abnormal 0.1-0.9 [facility] Work Phone: Comment on above: PATIENT NOT FASTINGP ERFORMED BY: TRESSA [facility] Quvifa8095 [facility] [id number] Information: [id number] Monocytes (Bld) [#/Vol] 1.4 10*3/uL Abnormal 0.1-0.9 [facility]; [facility] Work Phone: Comment on above: PATIENT NOT FASTINGP ERFORMED BY: CB [facility] Ivyabg1599 [facility] [id number] Information: 436003,[id number] Monocytes/100 WBC (Bld) 13 % Abnormal 4-12 [facility] Work Phone: Comment on above: PATIENT NOT FASTINGP ERFORMED BY: [facility] Hghpdq4510 [facility] [id number] Information: [id number] Morphology Harjinder (Bld) [Interp] Note: Normal [facility] Work Phone: Comment on above: Verified by microsco pic examination. PATIENT NOT FASTINGP ERFORMED BY: [facility] Ehmivw3509 [facility] [id number] Information: [id number] Neutrophils (Bld) [#/Vol] 7.1 {x10E3/uL} Abnormal 1.4-7.0 [facility] Work Phone: Comment on above: PATIENT NOT FASTINGP ERFORMED BY: CB [facility] Vdzixc1593 [facility] [id number] Information: [id number],[id number] Neutrophils (Bld) [#/Vol] 7.1 10*3/uL Abnormal 1.4-7.0 [facility]; [facility] Work Phone: Comment on above: PATIENT NOT FASTINGP ERFORMED BY: [facility] Lbqqib1082 [facility] [id number] Information: [id number],[id number] Neutrophils/100 WBC (Bld) 66 % Normal 40-74 [facility] Work Phone: Comment on above: PATIENT NOT FASTINGP ERFORMED BY: TRESSA Miles6[address] [facility] HospitalManinderECU Health [facility] [id number] Information: [id number] Platelets (Bld) [#/Vol] 528 {x10E3/uL} Abnormal 150-379 [facility] Work Phone: Comment on above: PATIENT NOT FASTINGP ERFORMED BY: TRESSA LabColili MilesBxyusj0664 [facility] [id number] Information: [id number] Platelets (Bld) [#/Vol] 528 10*3/uL Abnormal 150-379 [facility]; [facility] Work Phone: Comment on above: PATIENT NOT FASTINGP ERFORMED BY: TRESSA Miles6370 [facility] [id number] Information: [id number] RBC (Bld) [#/Vol] 4.32 {x10E6/uL} Normal 3.77-5.28 [facility] Internal Medicine Work Phone: Comment on above: PATIENT NOT FASTINGP ERFORMED BY: TRESSA Miles6370 [facility] [id number] Information: [id number] RBC (Bld) [#/Vol] 4.32 10*6/uL Normal 3.77-5.28 [facility] Internal Medicine; [facility] Work Phone: Comment on above: PATIENT NOT FASTINGP ERFORMED BY: TRESSA [facility]Co Gbvngm9618 [facility] [id number] Information: [id number],[id number] WBC (Bld) [#/Vol] 10.8 {x10E3/uL} Normal 3.4-10.8 [facility] Internal Medicine Work Phone: Comment on above: PATIENT NOT FASTINGP ERFORMED BY: TRESSA LabRik RodriguezBhpwlw5436 [facility] [id number] Information: [id number] WBC (Bld) [#/Vol] 10.8 10*3/uL Normal 3.4-10.8 [facility] Internal [facility]; [facility] Work Phone: Comment on above: PATIENT NOT FASTINGP ERFORMED BY: TRESSA [facility] Cdanvz1577 [address] [facility]bl[facility] [place] [id number] Information: [id number],[id number] LIPID PANEL (15960)Ordered B y: Wine Steward on 01-15-2014 Cholesterol [Mass/Vol] 193 mg/dL Normal 100-199 [facility] Work Phone: Comment on above: PATIENT WAS FASTINGP ERFORMED BY: TRESSA LabColili RodriguezSioaag9547 [facility] [place] [id number] Cholesterol in HDL [Mass/Vol] 61 mg/dL Normal [facility] Work Phone: Comment on above: According to ATP-III Guidelines, HDL-C >59 mg/dL is considered anegative risk factor for CHD. PATIENT WAS FASTINGP ERFORMED BY: TRESSA [facility] Xombzl3016 [facility] [place] [id number] Cholesterol in LDL [Mass/Vol] 114 mg/dL Abnormal 0-99 [facility] Work Phone: Comment on above: PATIENT WAS FASTINGP ERFORMED BY: TRESSA [facility] Dyoofn5536 [facility] [place] [id number] Cholesterol in LDL/Cholesterol in HDL [Mass ratio] 1.9 {ratio_units} Normal 0.0-3.2 [facility] Work Phone: Comment on above: PATIENT WAS FASTINGP ERFORMED BY: CB [facility] Mwwcei6687 Walker RoadDublin [place] [id number] Cholesterol in VLDL [Mass/Vol] 18 mg/dL Normal 5-40 [facility] Work Phone: Comment on above: PATIENT WAS FASTINGP ERFORMED BY: CB [facility] Uktaku5876 Walker RoadDublin [place] [id number] Triglyceride [Mass/Vol] 90 mg/dL Normal 0-149 [facility] Work Phone: Comment on above: PATIENT WAS FASTINGP ERFORMED BY: TRESSA LabColili MilesDniyzi1682 [facility] [place] [id number] METABOLIC PANEL, COMPREHENSI VE (90126)Ordered By: Wine Steward on 01-15-2014 Albumin [Mass/Vol] 4.6 g/dL Normal 3.5-5.5 [facility] Internal Medicine Work Phone: Comment on above: PATIENT WAS FASTINGP ERFORMED BY: TRESSA [facility] Lkhqxu1109 [facility] [id number] Information: [id number],[id number] Albumin/Globulin [Mass ratio] 1.9 {ratio} Normal 1.1-2.5 [facility] Work Phone: Comment on above: PATIENT WAS FASTINGP ERFORMED BY: TRESSA Arcos Pxnfbk0657 [facility] [id number] Information: [id number],[id number] ALP [Catalytic activity/Vol] 73 [iU]/L Normal 39-117 [facility] Work Phone: Comment on above: PATIENT WAS FASTINGP ERFORMED BY: TRESSA LabRik RodriguezCdiqyd9616 [facility] [id number] Information: 207204,[id number] ALP [Catalytic activity/Vol] 73 U/L Normal 39-117 [facility]; [facility] Work Phone: Comment on above: PATIENT WAS FASTINGP ERFORMED BY: TRESSA [facility] Qcxyif8865 [facility] [id number] Information: [id number] ALT [Catalytic activity/Vol] 15 [iU]/L Normal 0-32 [facility] Work Phone: Comment on above: PATIENT WAS FASTINGP ERFORMED BY: TRESSA [facility] Slkbfx9242 [facility] [id number] Information: [id number],[id number] ALT [Catalytic activity/Vol] 15 U/L Normal 0-32 [facility]; [facility] Work Phone: Comment on above: PATIENT WAS FASTINGP ERFORMED BY: TRESSA LabSaint [facility] Jezgpc1756 [facility] [id number] Information: [id number],[id number] AST [Catalytic activity/Vol] 23 [iU]/L Normal 0-40 [facility] Work Phone: Comment on above: PATIENT WAS FASTINGP ERFORMED BY: LabCoAbigail Ville 1876270 [facility] [id number] Information: 104626,[id number] AST [Catalytic activity/Vol] 23 U/L Normal 0-40 [facility]; [facility] Work Phone: Comment on above: PATIENT WAS FASTINGP ERFORMED BY: [facility] Ehnjox4913 [facility] [id number] Information: [id number] Bilirubin [Mass/Vol] 0.4 mg/dL Normal 0.0-1.2 [facility] Work Phone: Comment on above: PATIENT WAS FASTINGP ERFORMED BY: [facility] Gntbrr3463 [facility] [id number] Information: [id number],[id number] Calcium [Mass/Vol] 9.9 mg/dL Normal 8.7-10.2 [facility] Internal Medicine Work Phone: Comment on above: PATIENT WAS FASTINGP ERFORMED BY: LabRobert Ville [id number] [facility] [id number] Information: [id number],K98750 Chloride [Moles/Vol] 102 mmol/L Normal 97-108 Comp [facility] healthensive Internal Medicine Work Phone: Comment on above: PATIENT WAS FASTINGP ERFORMED BY: [facility]Saint [facility] Hhkoew2089 [facility] [id number] Information: 270883,[id number] CO2 [Moles/Vol] 24 mmol/L Normal 19-28 [facility]pre[facility] Internal Medicine Work Phone: Comment on above: PATIENT WAS FASTINGP ERFORMED BY: LabCo Dzdeik1628 [facility] [id number] Information: 251970,[id number] Creatinine [Mass/Vol] 0.65 mg/dL Normal 0.57-1.00 [facility] Work Phone: Comment on above: PATIENT WAS FASTINGP ERFORMED BY: [facility]Saint [facility] Bpzlbk7346 [facility] [id number] Information: 643144,G32589 GFR/1.73 sq M predicted among blacks CKD-EPI (S/P/Bld) [Vol rate/Area] 113 mL/min/1.73 Normal [facility] Work Phone: Comment on above: PATIENT WAS FASTINGP ERFORMED BY: [facility]6370 [facility] [id number] Information: 475799,N15163 GFR/1.73 sq M predicted among non-blacks CKD-EPI (S/P/Bld) [Vol rate/Area] 98 mL/min/1.73 Normal [facility] Work Phone: Comment on above: PATIENT WAS FASTINGP ERFORMED BY: [facility]Asc[facility] Hospital6370 [facility] [id number] Information: 688766,Z28271 Globulin (S) [Mass/Vol] 2.4 g/dL Normal 1.5-4.5 [facility] Work Phone: Comment on above: PATIENT WAS FASTINGP ERFORMED BY: LabCo Sdmvrm4667 [facility] [id number] Information: 073270,Q68040 Glucose [Mass/Vol] 91 mg/dL Normal 65-99 [facility] Internal Medicine Work Phone: Comment on above: PATIENT WAS FASTINGP ERFORMED BY: LabCo Elltpp9472 [facility] [id number] Information: 450529,K33265 Potassium [Moles/Vol] 5.0 mmol/L Normal 3.5-5.2 [facility] Work Phone: Comment on above: PATIENT WAS FASTINGP ERFORMED BY: TRESSA [facility]6370 [facility] [id number] Information: 923380,M33526 Protein [Mass/Vol] 7.0 g/dL Normal 6.0-8.5 [facility] Internal Medicine Work Phone: Comment on above: PATIENT WAS FASTINGP ERFORMED BY: [place] 9151070 [facility] [id number] Information: 454566,B24091 Sodium [Moles/Vol] 140 mmol/L Normal 134-144 [facility] Internal Medicine Work Phone: Comment on above: PATIENT WAS FASTINGP ERFORMED BY: TRESSA [place] [id number] [facility] [id number] Information: 158337,H25420 Urea nitrogen [Mass/Vol] 20 mg/dL Normal 6-24 [facility] Work Phone: Comment on above: PATIENT WAS FASTINGP ERFORMED BY: [address] [id number] Information: 677789,T50967 Urea nitrogen/Creatinine [Mass ratio] 31 mg/mg Abnormal 9-23 [facility] Work Phone: Comment on above: PATIENT WAS FASTINGP ERFORMED BY: [address] [id number] Information: [id number],[id number] CBC WITH MANUAL DIFF (48849) Ordered By: Wine Steward on 07-03-2013 Basophils (Bld) [#/Vol] 0.1 {x10E3/uL} Normal 0.0-0.2 [facility] Work Phone: Comment on above: PATIENT WAS FASTINGP ERFORMED BY: TRESSA [facility]Asc[facility]6370 [facility] [id number] Information: 303290,R87765 Basophils (Bld) [#/Vol] 0.1 10*3/uL Normal 0.0-0.2 [facility]; [facility] Work Phone: Comment on above: PATIENT WAS FASTINGP ERFORMED BY: TRESSA HarrisSaint [facility] Lrcqwm3567 [facility] [id number] Information: 358387,X84319 Basophils/100 WBC (Bld) 1 % Normal 0-3 [facility] Work Phone: Comment on above: PATIENT WAS FASTINGP ERFORMED BY: [address] [id number] Information: 959986,J35631 Eosinophils (Bld) [#/Vol] 0.1 {x10E3/uL} Normal 0.0-0.4 [facility] Work Phone: Comment on above: PATIENT WAS FASTINGP ERFORMED BY: [address] [id number] Information: 342889,N17638 Eosinophils (Bld) [#/Vol] 0.1 10*3/uL Normal 0.0-0.4 [facility]; [facility] Work Phone: Comment on above: PATIENT WAS FASTINGP ERFORMED BY: Steven[address] [id number] Information: 702821,Z91689 Eosinophils/100 WBC (Bld) 2 % Normal 0-5 [facility] Work Phone: Comment on above: PATIENT WAS FASTINGP ERFORMED BY: [address] [id number] Information: 844959,Q34615 Erythrocyte distribution width (RBC) [Ratio] 13.2 % Normal 12.3-15.4 [facility] Work Phone: Comment on above: PATIENT WAS FASTINGP ERFORMED BY: [address] [id number] Information: 040136,F18856 Hematocrit (Bld) [Volume fraction] 43.9 % Normal 34.0-46.6 [facility] Work Phone: Comment on above: PATIENT WAS FASTINGP ERFORMED BY: [address] [id number] Information: 488467,R05223 Hemoglobin (Bld) [Mass/Vol] 14.6 g/dL Normal 11.1-15.9 [facility] Work Phone: Comment on above: PATIENT WAS FASTINGP ERFORMED BY: [address] [id number] Information: 841196,S97639 Immature granulocytes (Bld) [#/Vol] 0.0 {x10E3/uL} Normal 0.0-0.1 [facility] Work Phone: Comment on above: PATIENT WAS FASTINGP ERFORMED BY: [address] [id number] Information: 248186,V02838 Immature granulocytes (Bld) [#/Vol] 0.0 10*3/uL Normal 0.0-0.1 [facility]; [facility] Work Phone: Comment on above: PATIENT WAS FASTINGP ERFORMED BY: [address] [id number] Information: [id number] Immature granulocytes/100 WBC (Bld) 0 % Normal 0-2 [facility] Work Phone: Comment on above: PATIENT WAS FASTINGP ERFORMED BY: [address] [id number] Information: 863692,I16745 Lymphocytes (Bld) [#/Vol] 2.3 {x10E3/uL} Normal 0.7-3.1 [facility] Work Phone: Comment on above: PATIENT WAS FASTINGP ERFORMED BY: [address] [id number] Information: 822484,F70206 Lymphocytes (Bld) [#/Vol] 2.3 10*3/uL Normal 0.7-3.1 [facility]; [facility] Work Phone: Comment on above: PATIENT WAS FASTINGP ERFORMED BY: [place] 9151070 [facility] [id number] Information: 966874,E91946 Lymphocytes/100 WBC (Bld) 32 % Normal 14-46 [facility] Work Phone: Comment on above: PATIENT WAS FASTINGP ERFORMED BY: [address] [id number] Information: 206093,N61065 MCH (RBC) [Entitic mass] 32.0 pg Normal 26.6-33.0 [facility] Work Phone: Comment on above: PATIENT WAS FASTINGP ERFORMED BY: [address] [id number] Information: 186707,F55252 MCHC (RBC) [Mass/Vol] 33.3 g/dL Normal 31.5-35.7 [facility] Work Phone: Comment on above: PATIENT WAS FASTINGP ERFORMED BY: [address] [id number] Information: 153610,[id number] MCV (RBC) [Entitic vol] 96 fL Normal 79-97 [facility] Work Phone: Comment on above: PATIENT WAS FASTINGP ERFORMED BY: [address] [id number] Information: 968948,O93774 Monocytes (Bld) [#/Vol] 0.6 {x10E3/uL} Normal 0.1-0.9 [facility] Work Phone: Comment on above: PATIENT WAS FASTINGP ERFORMED BY: [address] [id number] Information: 578593,F37543 Monocytes (Bld) [#/Vol] 0.6 10*3/uL Normal 0.1-0.9 [facility]; [facility] Work Phone: Comment on above: PATIENT WAS FASTINGP ERFORMED BY: TRESSA LabColili MilesQcoyki9598 [address] [facility] [place] [id number] Information: 105654,N63844 Monocytes/100 WBC (Bld) 9 % Normal 4-12 [facility] Work Phone: Comment on above: PATIENT WAS FASTINGP ERFORMED BY: [facility] Awtjbf1969 [address] [facility] [id number] Information: 804545,B23816 Neutrophils (Bld) [#/Vol] 4.1 {x10E3/uL} Normal 1.4-7.0 [facility] Work Phone: Comment on above: PATIENT WAS FASTINGP ERFORMED BY: [facility]Asc[facility] Hospital6370 [facility] [id number] Information: 703011,[id number] Neutrophils (Bld) [#/Vol] 4.1 10*3/uL Normal 1.4-7.0 [facility]; [facility] Work Phone: Comment on above: PATIENT WAS FASTINGP ERFORMED BY: TRESSA [facility] Iphfyx5466 [facility] [id number] Information: 127224,S51668 Neutrophils/100 WBC (Bld) 56 % Normal 40-74 [facility] Work Phone: Comment on above: PATIENT WAS FASTINGP ERFORMED BY: [facility] Vnnpxw2160 [address] [facility] [id number] Information: 250320,M76451 Platelets (Bld) [#/Vol] 358 {x10E3/uL} Normal 155-379 [facility] Work Phone: Comment on above: PATIENT WAS FASTINGP ERFORMED BY: [facility] Lrpcjd7377 [address] [facility] [id number] Information: 181311,O69515 Platelets (Bld) [#/Vol] 358 10*3/uL Normal 155-379 [facility]; [facility] Work Phone: Comment on above: PATIENT WAS FASTINGP ERFORMED BY: TRESSA Miles6370 [facility] [id number] Information: 567687,[id number] RBC (Bld) [#/Vol] 4.56 {x10E6/uL} Normal 3.77-5.28 [facility] Internal Medicine Work Phone: Comment on above: PATIENT WAS FASTINGP ERFORMED BY: TRESSA LabSaint [facility] Ejrfvt[address] [id number] Information: 341837,V34657 RBC (Bld) [#/Vol] 4.56 10*6/uL Normal 3.77-5.28 [facility] Internal Medicine; [facility] Work Phone: Comment on above: PATIENT WAS FASTINGP ERFORMED BY: TRESSA StevenSaint [facility] Cpersk4010 [facility] [id number] Information: 233370,R38755 WBC (Bld) [#/Vol] 7.3 {x10E3/uL} Normal 3.4-10.8 [facility] Internal Medicine Work Phone: Comment on above: PATIENT WAS FASTINGP ERFORMED BY: StevenSaint [facility] Wxcnmd1277 [facility] [id number] Information: 506710,S68857 WBC (Bld) [#/Vol] 7.3 10*3/uL Normal 3.4-10.8 [facility] Internal Medicine; [facility] Work Phone: Comment on above: PATIENT WAS FASTINGP ERFORMED BY: TRESSA HarrisSaint [facility] Wholst4718 [facility] [id number] Information: 238893,U88479 LIPID PANEL (09279)Ordered B y: Wine Steward on 07-03-2013 Cholesterol [Mass/Vol] 240 mg/dL Abnormal 100-199 [facility] Work Phone: Comment on above: PATIENT WAS FASTINGP ERFORMED BY: CB [facility] Xgqtkz7245 Walker RoadDublin [place] [id number] Cholesterol in HDL [Mass/Vol] 53 mg/dL Normal [facility] Work Phone: Comment on above: According to ATP-III Guidelines, HDL-C >59 mg/dL is considered anegative risk factor for CHD. PATIENT WAS FASTINGP ERFORMED BY: CB [facility] Kvwjlp1510 Walker RoadDublin [place] [id number] Cholesterol in LDL [Mass/Vol] 165 mg/dL Abnormal 0-99 [facility] Work Phone: Comment on above: PATIENT WAS FASTINGP ERFORMED BY: CB [facility] Hrkpkp9472 [address] RoadDublin [place] [id number] Cholesterol in LDL/Cholesterol in HDL [Mass ratio] 3.1 {ratio_units} Normal 0.0-3.2 [facility] Work Phone: Comment on above: PATIENT WAS FASTINGP ERFORMED BY: CB [facility] Eznyiw2113 Walker RoadDublin [place] [id number] Cholesterol in VLDL [Mass/Vol] 22 mg/dL Normal 5-40 [facility] Work Phone: Comment on above: PATIENT WAS FASTINGP ERFORMED BY: CB [facility] Yufoty0201 [address] RoadDublin [place] [id number] Triglyceride [Mass/Vol] 110 mg/dL Normal 0-149 [facility] Work Phone: Comment on above: PATIENT WAS FASTINGP ERFORMED BY: CB [facility] Wqmjzk1918 [address] RoadDublin [place] [id number] METABOLIC PANEL, COMPREHENSI VE (35109)Ordered By: Wine Steward on 07-03-2013 Albumin [Mass/Vol] 4.4 g/dL Normal 3.5-5.5 [facility] Internal Medicine Work Phone: Comment on above: PATIENT WAS FASTINGP ERFORMED BY: CB [facility] Fpsmvb6285 [address] RoadDublin [place] [id number] Albumin/Globulin [Mass ratio] 1.6 {ratio} Normal 1.1-2.5 [facility] Work Phone: Comment on above: PATIENT WAS FASTINGP ERFORMED BY: TRESSA [facility] Pkufxm6038 Walker RoadDublin [place] [id number] ALP [Catalytic activity/Vol] 74 [iU]/L Normal 42-107 [facility] Work Phone: Comment on above: PATIENT WAS FASTINGP ERFORMED BY: [facility] Ntvebw6370 [address] RoadDublin [place] [id number] ALP [Catalytic activity/Vol] 74 U/L Normal 42-107 [facility]; [facility] Work Phone: Comment on above: PATIENT WAS FASTINGP ERFORMED BY: [facility] Cniubk0185 [address] RoadDublin [place] [id number] ALT [Catalytic activity/Vol] 18 [iU]/L Normal 0-32 [facility] Work Phone: Comment on above: PATIENT WAS FASTINGP ERFORMED BY: [facility] Iruabv9131 [address] RoadDublin [place] [id number] ALT [Catalytic activity/Vol] 18 U/L Normal 0-32 [facility]; [facility] Work Phone: Comment on above: PATIENT WAS FASTINGP ERFORMED BY: [facility] Hclmfz8015 [address] RoadDublin [place] [id number] AST [Catalytic activity/Vol] 21 [iU]/L Normal 0-40 [facility] Work Phone: Comment on above: PATIENT WAS FASTINGP ERFORMED BY: [facility] Hqapbl7246 [address] RoadDublin [place] [id number] AST [Catalytic activity/Vol] 21 U/L Normal 0-40 [facility]; [facility] Work Phone: Comment on above: PATIENT WAS FASTINGP ERFORMED BY: [facility] Xfurbc9544 [address] RoadDublin [place] [id number] Bilirubin [Mass/Vol] 0.5 mg/dL Normal 0.0-1.2 Comp [facility] Internal Medicine Work Phone: Comment on above: PATIENT WAS FASTINGP ERFORMED BY: CB [facility] Xnuseg9747 [address] RoadDublin [place] [id number] Calcium [Mass/Vol] 9.8 mg/dL Normal 8.7-10.2 [facility] Internal Medicine Work Phone: Comment on above: PATIENT WAS FASTINGP ERFORMED BY: CB [facility] Vhygok0154 [address] RoadDublin [place] [id number] Chloride [Moles/Vol] 100 mmol/L Normal 97-108 Comp [facility] Internal Medicine Work Phone: Comment on above: PATIENT WAS FASTINGP ERFORMED BY: CB [facility] Rldbms2822 [address] RoadDublin [place] [id number] CO2 [Moles/Vol] 21 mmol/L Normal 19-28 [facility] Internal Medicine Work Phone: Comment on above: PATIENT WAS FASTINGP ERFORMED BY: CB [facility] Kicpgo4100 [address] RoadDublin [place] [id number] Creatinine [Mass/Vol] 0.71 mg/dL Normal 0.57-1.00 [facility] Work Phone: Comment on above: PATIENT WAS FASTINGP ERFORMED BY: CB [facility] Bkzzma6810 [address] RoadDublin [place] [id number] GFR/1.73 sq M predicted among blacks CKD-EPI (S/P/Bld) [Vol rate/Area] 109 mL/min/1.73 Normal [facility] Work Phone: Comment on above: PATIENT WAS FASTINGP ERFORMED BY: CB [facility] Ygnolt4932 [address] RoadDublin [place] [id number] GFR/1.73 sq M predicted among non-blacks CKD-EPI (S/P/Bld) [Vol rate/Area] 95 mL/min/1.73 Normal [facility] Work Phone: Comment on above: PATIENT WAS FASTINGP ERFORMED BY: CB [facility] Ckpjlt5741 [address] RoadDublin [place] [id number] Globulin (S) [Mass/Vol] 2.8 g/dL Normal 1.5-4.5 [facility] Work Phone: Comment on above: PATIENT WAS FASTINGP ERFORMED BY: TRESSA [facility] Nqoieg1598 [address] [facility]in [place] [id number] Glucose [Mass/Vol] 94 mg/dL Normal 65-99 [facility] Internal Medicine Work Phone: Comment on above: PATIENT WAS FASTINGP ERFORMED BY: LabAsc[facility]6370 [address] [facility] [place] [id number] Potassium [Moles/Vol] 4.5 mmol/L Normal 3.5-5.2 [facility] Internal Medicine Work Phone: Comment on above: PATIENT WAS FASTINGP ERFORMED BY: LabSaint [facility] Vnibes1416 [address] [facility]in [place] [id number] Protein [Mass/Vol] 7.2 g/dL Normal 6.0-8.5 [facility] Internal Medicine Work Phone: Comment on above: PATIENT WAS FASTINGP ERFORMED BY: TRESSA [facility] Iitbmt9916 [address] [facility]in [place] [id number] Sodium [Moles/Vol] 139 mmol/L Normal 134-144 [facility] Internal Medicine Work Phone: Comment on above: PATIENT WAS FASTINGP ERFORMED BY: LabAsc[facility]6370 [facility] [id number] Urea nitrogen [Mass/Vol] 18 mg/dL Normal 6-24 [facility] Work Phone: Comment on above: PATIENT WAS FASTINGP ERFORMED BY: LabSaint [facility] Hldfkg1492 [address] [facility]in [place] [id number] Urea nitrogen/Creatinine [Mass ratio] 25 mg/mg Abnormal 9-23 [facility] Work Phone: Comment on above: PATIENT WAS FASTINGP ERFORMED BY: LabSaint [facility] Msnfsr9[address] [facility] Centerblin [place] [id number] MICROALBUMINOrdered By: Syst em [employer] Deburrer on 07-03-2013 Albumin DL <= 20 mg/L (U) [Mass/Vol] 2.7 ug/mL Normal 0.0-17.0 Comprehensiv e Internal Medicine Work Phone: Comment on above: PATIENT WAS FASTINGP ERFORMED BY: [facility] Bcsrbl9210 [address] [facility]in [place] [id number] Albumin/Creatinine (U) [Mass ratio] 2.3 {mg/g_creat} Normal 0.0-30.0 [facility] Work Phone: Comment on above: PATIENT WAS FASTINGP ERFORMED BY: CB [facility] Ehelrz5071 Awlker RoadHugh Chatham Memorial Hospitalin [place] [id number] Creatinine (U) [Mass/Vol] 118.4 mg/dL Normal 15.0-278.0 [facility] Work Phone: Comment on above: PATIENT WAS FASTINGP ERFORMED BY: [facility] Zduqzt5376 [address] [facility]in [place] [id number] Microscopic ExaminationOrder ed By: Wine Steward on 07-03-2013 Bacteria LM.HPF (Urine sed) [#/Area] Few Normal Comprehensi ve Internal Medicine Work Phone: Comment on above: PATIENT WAS FASTINGP ERFORMED BY: [facility] Hmttpg7047 [address] [facility]in [place] [id number] Epithelial cells LM.HPF (Urine sed) [#/Area] 0-10 Normal 0 - 10 [facility] Work Phone: Comment on above: PATIENT WAS FASTINGP ERFORMED BY: [facility] Jxqreh1997 [address] [facility]in [place] [id number] Mucus Ql (Urine sed) Present Normal Comp rehensive Internal Medicine Work Phone: Comment on above: PATIENT WAS FASTINGP ERFORMED BY: [facility] Elbxiu2920 [address] [facility] HospitalDublin [place] [id number] RBC LM.HPF (Urine sed) [#/Area] 0-3 Normal 0 - 3 [facility] Work Phone: Comment on above: PATIENT WAS FASTINGP ERFORMED BY: [facility] Mlbdmq6959 [address] RoadDublin [place] [id number] WBC LM.HPF (Urine sed) [#/Area] 0-5 Normal 0 - 5 [facility] Work Phone: Comment on above: PATIENT WAS FASTINGP ERFORMED BY: TRESSA Rodriguezlin6370 [address] RoadDublin [place] [id number] TSH (48062)Ordered By: SageQueste m [employer] Deburrer on 07-03-2013 TSH Qn 1.390 {uIU/mL} Normal 0.450-4.50 0 [facility] Work Phone: Comment on above: PATIENT WAS FASTINGP ERFORMED BY: TRESSA LabRik RodriguezDhhsoa2287 Walker RoadDublin [place] [id number] URINALYSIS, W/ MICRO ([id number]) Ordered By: Wine Steward on 07-03-2013 Appearance (U) Clear Normal Comprehens yelena Internal Medicine Work Phone: Comment on above: PATIENT WAS FASTINGP ERFORMED BY: TRESSA Rodriguezlin6370 [address] RoadDublin [place] [id number] Bilirubin Ql (U) Negative Normal Comprehe nsive Internal Medicine Work Phone: Comment on above: PATIENT WAS FASTINGP ERFORMED BY: TRESSA Rodriguezlin6370 [address] RoadDublin [place] [id number] Bilirubin Ql (U) Negative Normal Comprehe nsive Internal Medicine; [facility] Work Phone: Comment on above: PATIENT WAS FASTINGP ERFORMED BY: TRESSA Rodriguezlin6370 [address] RoadDublin [place] [id number] Color (U) Yellow Normal [facility] Work Phone: Comment on above: PATIENT WAS FASTINGP ERFORMED BY: TRESSA LabRik RodriguezUxdsfm5250 [address] RoadDublin [place] [id number] Glucose Ql (U) Negative Normal Comprehens yelena Internal Medicine Work Phone: Comment on above: PATIENT WAS FASTINGP ERFORMED BY: TRESSA LabRik RodriguezTyguye2563 [address] RoadDublin [place] [id number] Glucose Ql (U) Negative Normal Comprehens yelena Internal Medicine; [facility] Work Phone: Comment on above: PATIENT WAS FASTINGP ERFORMED BY: TRESSA Rodriguezlin6370 [address] RoadDublin [place] [id number] Hemoglobin Ql (U) Negative Normal Compreh ensive Internal Medicine Work Phone: Comment on above: PATIENT WAS FASTINGP ERFORMED BY: TRESSA Rodriguezlin6370 [address] RoadDublin [place] [id number] Hemoglobin Ql (U) Negative Normal Compreh ensive Internal Medicine; [facility] Work Phone: Comment on above: PATIENT WAS FASTINGP ERFORMED BY: TRESSA Rodriguezlin6370 [address] RoadDuin [place] [id number] Ketones Ql (U) Negative Normal Comprehens yelena Internal Medicine Work Phone: Comment on above: PATIENT WAS FASTINGP ERFORMED BY: TRESSA Rodriguezlin[address] [facility] [place] [id number] Ketones Ql (U) Negative Normal Comprehens yelena Internal Medicine; [facility] Work Phone: Comment on above: PATIENT WAS FASTINGP ERFORMED BY: TRESSA Rodriguezlin6[address] RoadPaint Bank [place] [id number] Leukocyte esterase Test strip Ql (U) Negative Normal [facility] Work Phone: Comment on above: PATIENT WAS FASTINGP ERFORMED BY: TRESSA Rodriguezlin6[address] [facility] [place] [id number] Leukocyte esterase Test strip Ql (U) Negative Normal [facility]; [facility] Work Phone: Comment on above: PATIENT WAS FASTINGP ERFORMED BY: TRESSA Rodriguezlin6[address] [facility]in [place] [id number] Microscopic observation LM Nom (Urine sed) See below: Normal [facility] Work Phone: Comment on above: PATIENT WAS FASTINGP ERFORMED BY: TRESSA Rodriguezlin6370 [address] RoadDublin [place] [id number] Microscopic observation LM Nom (Urine sed) MICRON Normal [facility] Work Phone: Comment on above: Microscopic follows if indicated. PATIENT WAS FASTINGP ERFORMED BY: TRESSA Rodriguezlin6[address] [facility] [id number] Nitrite Ql (U) Negative Normal Comprehens yelena Internal Medicine Work Phone: Comment on above: PATIENT WAS FASTINGP ERFORMED BY: TRESSA Rodriguezlin6[address] [facility]in [place] [id number] Nitrite Ql (U) Negative Normal Comprehens yelena Internal Medicine; [facility] Work Phone: Comment on above: PATIENT WAS FASTINGP ERFORMED BY: TRESSA Miles6370 [facility] [id number] pH (U) 5.5 [pH] Normal 5.0-7.5 [facility] Work Phone: Comment on above: PATIENT WAS FASTINGP ERFORMED BY: TRESSA Rodriguezlin6370 [facility] [id number] Protein Ql (U) Negative Normal Comprehens yelena Internal Medicine Work Phone: Comment on above: PATIENT WAS FASTINGP ERFORMED BY: TRESSA Rodriguezlin6370 [facility] [id number] Protein Ql (U) Negative Normal Comprehens yelena [facility]; [facility] Work Phone: Comment on above: PATIENT WAS FASTINGP ERFORMED BY: TRESSA Rodriguezlin6370 [facility] [id number] Specific gravity (U) [Rel density] 1.020 1 Normal 1.005-1.03 0 [facility] Work Phone: Comment on above: PATIENT WAS FASTINGP ERFORMED BY: TRESSA [facility] Bjsrwy5541 [facility] [id number] Urobilinogen (U) [Mass/Vol] 0.2 mg/dL Normal 0.0-1.9 [facility]; [facility] Work Phone: Comment on above: PATIENT WAS FASTINGP ERFORMED BY: TRESSA [facility] Afpyjr1218 [facility] [id number] Urobilinogen Test strip (U) [Mass/Vol] 0.2 mg/dL Normal 0.0-1.9 Comprehensi ve Internal Medicine Work Phone: Comment on above: PATIENT WAS FASTINGP ERFORMED BY: [facility] Wesgpl9478 [facility] [id number] Urinalysis, Office (37135)Or dered By: Veronica Brenner on 11-25-2012 Bilirubin Ql (U) Negative Normal Comprehe nsive Internal Medicine Work Phone: Bilirubin Ql (U) Negative Normal Comprehe nsive Internal Medicine; [facility] Work Phone: Glucose Test strip (U) [Mass/Vol] Negative Normal [facility] Work Phone: Glucose Test strip (U) [Mass/Vol] Negative Normal [facility]; [facility] Work Phone: Hemoglobin Ql (U) Negative Normal Compreh ensive Internal Medicine Work Phone: Hemoglobin Ql (U) Negative Normal Compreh ensive Internal Medicine; [facility] Work Phone: Ketones Ql (U) Negative Normal Comprehens yelena [facility] Work Phone: Ketones Ql (U) Negative Normal Comprehens yelena [facility]; [facility] Work Phone: Leukocyte esterase Test strip Ql (U) Trace Normal [facility] Work Phone: Nitrite Ql (U) Negative Normal Comprehens yelena [facility] Work Phone: Nitrite Ql (U) Negative Normal Comprehens yelena [facility]; [facility] Work Phone: pH (U) 6.0 [pH] Normal [facility] Work Phone: Protein Ql (U) Negative Normal Comprehens yleena Internal Medicine Work Phone: Protein Ql (U) Negative Normal Comprehens yelena [facility]; [facility] Work Phone: Specific gravity (U) [Rel density] 1.020 1 Normal [facility] Work Phone: Urobilinogen (24H U) [Mass/Time] 2 mg/dL Normal [facility] Work Phone: HEPATIC FUNCTION PANEL (8007 6)Ordered By: Wine Steward on 10-03-2012 Albumin [Mass/Vol] 4.5 g/dL Normal 3.5-5.5 [facility] Internal Medicine Work Phone: Comment on above: PATIENT WAS FASTINGP ERFORMED BY: CB [facility] Djtlqb0181 [address] RoadD[address] [place] [id number] Information: [id number] ALP [Catalytic activity/Vol] 76 [iU]/L Normal 25-150 [facility] Work Phone: Comment on above: PATIENT WAS FASTINGP ERFORMED BY: CB [facility] Fkabgp6976 Walker RoadDublin [place] [id number] Information: [id number] ALP [Catalytic activity/Vol] 76 U/L Normal 25-150 [facility]; [facility] Work Phone: Comment on above: PATIENT WAS FASTINGP ERFORMED BY: CB [facility] Lagfib3977 [address] RoadDublin [place] [id number] Information: [id number] ALT [Catalytic activity/Vol] 19 [iU]/L Normal 0-32 [facility] Work Phone: Comment on above: PATIENT WAS FASTINGP ERFORMED BY: CB [facility] Qhhzes8289 [address] RoadDublin [place] [id number] Information: [id number] ALT [Catalytic activity/Vol] 19 U/L Normal 0-32 [facility]; [facility] Work Phone: Comment on above: PATIENT WAS FASTINGP ERFORMED BY: CB [facility] Rrfotk9562 [address] RoadDublin [place] [id number] Information: [id number] AST [Catalytic activity/Vol] 23 [iU]/L Normal 0-40 [facility] Work Phone: Comment on above: PATIENT WAS FASTINGP ERFORMED BY: CB [facility] Kmmzff8639 [address] RoadDublin [place] [id number] Information: [id number] AST [Catalytic activity/Vol] 23 U/L Normal 0-40 [facility]; [facility] Work Phone: Comment on above: PATIENT WAS FASTINGP ERFORMED BY: TRESSA Miles6370 [facility] [id number] Information: [id number] Bilirubin [Mass/Vol] 0.5 mg/dL Normal 0.0-1.2 Comp [facility] Internal Medicine Work Phone: Comment on above: PATIENT WAS FASTINGP ERFORMED BY: TRESSA [facility] Jdfbiy5873 [facility] [id number] Information: [id number] Bilirubin.direct [Mass/Vol] 0.13 mg/dL Normal 0.00-0.40 [facility] Work Phone: Comment on above: PATIENT WAS FASTINGP ERFORMED BY: TRESSA [facility] Coqfdw2366 [facility] [id number] Information: [id number] Protein [Mass/Vol] 6.9 g/dL Normal 6.0-8.5 [facility] Internal Medicine Work Phone: Comment on above: PATIENT WAS FASTINGP ERFORMED BY: TRESSA Arcos Hadzjy4226 [facility] [id number] Information: [id number] Lipid Panel (19860)Ordered B y: Wine Steward on 10-03-2012 Cholesterol [Mass/Vol] 195 mg/dL Normal 100-199 [facility] Work Phone: Comment on above: PATIENT WAS FASTINGP ERFORMED BY: [facility] Fvkkrv7473 [facility] [id number] Cholesterol in HDL [Mass/Vol] 60 mg/dL Normal [facility] Work Phone: Comment on above: According to ATP-III Guidelines, HDL-C >59 mg/dL is considered anegative risk factor for CHD. PATIENT WAS FASTINGP ERFORMED BY: [facility] Kbxrlu8164 [facility] [id number] Cholesterol in LDL [Mass/Vol] 117 mg/dL Abnormal 0-99 [facility] Work Phone: Comment on above: PATIENT WAS FASTINGP ERFORMED BY: TRESSA [facility] Ukwifm9400 [address]blin [place] [id number] Cholesterol in LDL/Cholesterol in HDL [Mass ratio] 2.0 {ratio_units} Normal 0.0-3.2 [facility] Work Phone: Comment on above: PATIENT WAS FASTINGP ERFORMED BY: CB [facility] Mjzygy0330 Walker RoadDuin [place] [id number] Cholesterol in VLDL [Mass/Vol] 18 mg/dL Normal 5-40 [facility] Work Phone: Comment on above: PATIENT WAS FASTINGP ERFORMED BY: TRESSA [facility] Fcvdmo5123 Walker Roadblin [place] [id number] Triglyceride [Mass/Vol] 91 mg/dL Normal 0-149 [facility] Work Phone: Comment on above: PATIENT WAS FASTINGP ERFORMED BY: TRESSA [facility] Axedvu4246 [address] [facility] [id number] BRAIN W/WO CONTRASTOrdered B y: Wine Steward on 07-11-2012 BRAIN W/WO CONTRAST See Note Normal Compr ehensive Internal Medicine Work Phone: Comment on above: PROCEDURE: MRI BRAIN WITH AND WITHOUT CONTRAST REASON FOR EXAM: Female, 56 years old. Acute headache 3 days ago nowhasa mild dull headache. TECHNIQUE: Standardized multiplanar fat and water weighted pulsesequences were obtained. 14 ml of Magnevist contrast material wasadministered intravenously for the contrast portion of the examination. COMPARISON: None. FINDINGS:Normal size of the ventricles and extra-axial spaces for the patient'jordan.Normal white matter tracts of the supratentorial brain. There is noevidence for recent intracranial ischemia or other cause of cytotoxicedemaon diffusion weighted imaging (DWI). Normal T2* images of the brainwithout demonstrated susceptibility artifact. There is no demonstratedhemosiderin stain. There are subtle scattered foci of abnormal R0mfixjbosbcstrd within the subcortical white matter of bilateral frontalandparietal regions of the brain. These do not appear to exhibit any masseffect. These do not enhance after intravenous administration ofcontrast. Normal bilateral basal ganglia. Normal thalami. There is no extra-axialfluid accumulation. Normal flow voids within the major intracranial circulation suggestingpatency by spin echo criteria. Normal venous enhancement. There is noenhancing intra-axial or extra-axial abnormality. Normal sella turcica, pituitary gland, infundibular stalk, optic chiasmandhypothalamus. Normal tectal plate and pineal gland. There are mildly prominent Virchow Israel spaces within the midbrainprobably of no clinical significance. Normal cerebellum. Normal basalcisterns. Normal bilateral temporal bones. Normal bilateral internalauditory canals. No demonstrated orbital abnormality, within the constraints of a routinebrain study. There is mucoperiosteal inflammatory disease of theparanasalsinuses consistent with mild chronic sinusitis. Normal calvarium andskullbase. Normal visualized soft tissue structures. Normal visualized uppercervical spine. IMPRESSION:1. No MR evidence for acute infarct.2. Mild scattered foci of abnormal signal within the subcortical whitematter may be the sequela of a vasculopathy or migraine.3. Otherwise, normal MRI of the brain. Signed:Anay Morin M.D.July 11, 2012 at 5:44:04 PM [phone] Signed AM/AM If you are the referring physician and would like to consult with theradiologist who provided this interpretation, please contact Anay Morin M.D. at . If this radiologist is unavailable, you will bedirected to another radiologist to assist. If you are a patient with a question regarding this report, pleasecontactyour referring physician directly. Professional Interpretation Provided By: [employer], Phone , These documents contain legally protected and confidential healthinformation intended only for the use of the individual or entity namedabove. If you are not the intended recipient, you are hereby notifiedthatany disclosure, copying, distribution, or other use of these documents isstrictly prohibited. If you have received this information in error,pleasenotify the sender immediately and arrange for the return or destructionofthese documents. Dictated on 07/11/12 0643 by Mikel KOHLI,VandaaTranscribed on 07/11/121747 by ITS IMPORTSign by Anay Morin MD on 07/11/121748 Sign by: Anay Morin MD CBC WITH MANUAL DIFF ([id number]) Ordered By: Wine Steward on 07-09-2012 Basophils (Bld) [#/Vol] 0.1 {x10E3/uL} Normal 0.0-0.2 [facility] Work Phone: Comment on above: PATIENT NOT FASTINGP ERFORMED BY: CB [facility] Hlrvhi1887 [address] [facility] [id number] Information: [id number] DRAW FEE 68081 Basophils (Bld) [#/Vol] 0.1 10*3/uL Normal 0.0-0.2 [facility]; [facility] Work Phone: Comment on above: PATIENT NOT FASTINGP ERFORMED BY: CB [facility] Beyhzf9896 [address] [facility] [id number] Information: [id number] DRAW FEE 71017 Basophils/100 WBC (Bld) 1 % Normal 0-3 [facility] Work Phone: Comment on above: PATIENT NOT FASTINGP ERFORMED BY: CB [facility] Qgjrih0231 [address] [facility] [id number] Information: [id number] DRAW FEE 71039 Eosinophils (Bld) [#/Vol] 0.1 {x10E3/uL} Normal 0.0-0.4 [facility] Work Phone: Comment on above: PATIENT NOT FASTINGP ERFORMED BY: CB [facility] Mknwzq7542 [address] [facility] [id number] Information: [id number] DRAW FEE 22910 Eosinophils (Bld) [#/Vol] 0.1 10*3/uL Normal 0.0-0.4 [facility]; [facility] Work Phone: Comment on above: PATIENT NOT FASTINGP ERFORMED BY: CB [facility] Ezlgvb4154 [facility] [id number] Information: [id number] DRAW FEE 61469 Eosinophils/100 WBC (Bld) 2 % Normal 0-7 [facility] Work Phone: Comment on above: PATIENT NOT FASTINGP ERFORMED BY: TRESSA [address] [id number] Information: [id number] DRAW FEE 83478 Erythrocyte distribution width (RBC) [Ratio] 12.9 % Normal 12.3-15.4 [facility] Work Phone: Comment on above: PATIENT NOT FASTINGP ERFORMED BY: [address] [id number] Information: [id number] DRAW FEE 24320 Hematocrit (Bld) [Volume fraction] 42.7 % Normal 34.0-46.6 [facility] Work Phone: Comment on above: PATIENT NOT FASTINGP ERFORMED BY: [address] [id number] Information: [id number] DRAW FEE 94531 Hemoglobin (Bld) [Mass/Vol] 14.3 g/dL Normal 11.1-15.9 [facility] Work Phone: Comment on above: PATIENT NOT FASTINGP ERFORMED BY: TRESSA [address] [id number] Information: [id number] DRAW FEE 83184 Immature granulocytes (Bld) [#/Vol] 0.0 {x10E3/uL} Normal 0.0-0.1 [facility] Work Phone: Comment on above: PATIENT NOT FASTINGP ERFORMED BY: [address] [id number] Information: [id number] DRAW FEE 69923 Immature granulocytes (Bld) [#/Vol] 0.0 10*3/uL Normal 0.0-0.1 [facility]; [facility] Work Phone: Comment on above: PATIENT NOT FASTINGP ERFORMED BY: TRESSA LabRobert [place] 4242670 [facility] [id number] Information: [id number] DRAW FEE 69128 Immature granulocytes/100 WBC (Bld) 0 % Normal 0-2 [facility] Work Phone: Comment on above: PATIENT NOT FASTINGP ERFORMED BY: Isrrael[address] [id number] Information: [id number] DRAW FEE 32595 Lymphocytes (Bld) [#/Vol] 2.8 {x10E3/uL} Normal 0.7-4.5 [facility] Work Phone: Comment on above: PATIENT NOT FASTINGP ERFORMED BY: [address] [id number] Information: [id number] DRAW FEE 65164 Lymphocytes (Bld) [#/Vol] 2.8 10*3/uL Normal 0.7-4.5 [facility]; [facility] Work Phone: Comment on above: PATIENT NOT FASTINGP ERFORMED BY: [address] [id number] Information: [id number] DRAW FEE 48025 Lymphocytes/100 WBC (Bld) 35 % Normal 14-46 [facility] Work Phone: Comment on above: PATIENT NOT FASTINGP ERFORMED BY: [address] [id number] Information: [id number] DRAW FEE 71824 MCH (RBC) [Entitic mass] 32.1 pg Normal 26.6-33.0 [facility] Work Phone: Comment on above: PATIENT NOT FASTINGP ERFORMED BY: [address] [id number] Information: [id number] DRAW FEE 39382 MCHC (RBC) [Mass/Vol] 33.5 g/dL Normal 31.5-35.7 [facility] Work Phone: Comment on above: PATIENT NOT FASTINGP ERFORMED BY: TRESSA Miles6370 [facility] [id number] Information: [id number] DRAW FEE 53216 MCV (RBC) [Entitic vol] 96 fL Normal 79-97 [facility] Work Phone: Comment on above: PATIENT NOT FASTINGP ERFORMED BY: TRESSA Rodriguezlin6370 [facility] [id number] Information: [id number] DRAW FEE 24045 Monocytes (Bld) [#/Vol] 0.7 {x10E3/uL} Normal 0.1-1.0 [facility] Work Phone: Comment on above: PATIENT NOT FASTINGP ERFORMED BY: TRESSA Rodriguezlin6370 [facility] [id number] Information: [id number] DRAW FEE 83124 Monocytes (Bld) [#/Vol] 0.7 10*3/uL Normal 0.1-1.0 [facility]; [facility] Work Phone: Comment on above: PATIENT NOT FASTINGP ERFORMED BY: TRESSA Arcos Gutaju2825 [facility] [id number] Information: [id number] DRAW FEE 11432 Monocytes/100 WBC (Bld) 8 % Normal 4-13 [facility] Work Phone: Comment on above: PATIENT NOT FASTINGP ERFORMED BY: TRESSA Arcos Gojpcd2348 [facility] [id number] Information: [id number] DRAW FEE 83053 Neutrophils (Bld) [#/Vol] 4.3 {x10E3/uL} Normal 1.8-7.8 [facility] Work Phone: Comment on above: PATIENT NOT FASTINGP ERFORMED BY: TRESSA Rodriguezlin6370 [facility] [id number] Information: [id number] DRAW FEE 27470 Neutrophils (Bld) [#/Vol] 4.3 10*3/uL Normal 1.8-7.8 [facility]; [facility] Work Phone: Comment on above: PATIENT NOT FASTINGP ERFORMED BY: TRESSA [facility] [id number] Information: [id number] DRAW FEE 47586 Neutrophils/100 WBC (Bld) 54 % Normal 40-74 [facility] Work Phone: Comment on above: PATIENT NOT FASTINGP ERFORMED BY: TRESSA Abbott [facility] [id number] Information: [id number] DRAW FEE 49602 Platelets (Bld) [#/Vol] 389 {x10E3/uL} Normal 140-415 [facility] Internal Medicine Work Phone: Comment on above: PATIENT NOT FASTINGP ERFORMED BY: TRESSA Abbott [facility] [id number] Information: [id number] DRAW FEE 86747 Platelets (Bld) [#/Vol] 389 10*3/uL Normal 140-415 [facility] Internal Medicine; [facility] Work Phone: Comment on above: PATIENT NOT FASTINGP ERFORMED BY: TRESSA Abbott [facility] [id number] Information: [id number] DRAW FEE 23281 RBC (Bld) [#/Vol] 4.46 {x10E6/uL} Normal 3.77-5.28 [facility] Internal Medicine Work Phone: Comment on above: PATIENT NOT FASTINGP ERFORMED BY: TRESSA Rodriguezlin6370 [facility] [id number] Information: [id number] DRAW FEE 28102 RBC (Bld) [#/Vol] 4.46 10*6/uL Normal 3.77-5.28 [facility] Internal Medicine; [facility] Internal Medicine Work Phone: Comment on above: PATIENT NOT FASTINGP ERFORMED BY: TRESSA Rodriguezlin6370 [facility] [id number] Information: [id number] DRAW FEE 28139 WBC (Bld) [#/Vol] 8.0 {x10E3/uL} Normal 4.0-10.5 [facility] prehensive Internal Medicine Work Phone: Comment on above: PATIENT NOT FASTINGP ERFORMED BY: TRESSA Miles6370 [address] [facility] [id number] Information: [id number] DRAW FEE 75356 WBC (Bld) [#/Vol] 8.0 10*3/uL Normal 4.0-10.5 [facility] Internal Medicine; [facility] Work Phone: Comment on above: PATIENT NOT FASTINGP ERFORMED BY: TRESSA Rodriguezlin6370 [facility] [id number] Information: [id number] DRAW FEE 72838 LIPID PANEL (18114)Ordered B y: Wine Steward on 07-09-2012 Cholesterol [Mass/Vol] 239 mg/dL Abnormal 100-199 [facility] Work Phone: Comment on above: PATIENT NOT FASTINGP ERFORMED BY: TRESSA Miles6370 [facility] [id number] Cholesterol in HDL [Mass/Vol] 57 mg/dL Normal [facility] Work Phone: Comment on above: According to ATP-III Guidelines, HDL-C >59 mg/dL is considered anegative risk factor for CHD. PATIENT NOT FASTINGP ERFORMED BY: TRESSA Rodriguezlin6370 [facility] [id number] Cholesterol in LDL [Mass/Vol] 146 mg/dL Abnormal 0-99 [facility] Work Phone: Comment on above: PATIENT NOT FASTINGP ERFORMED BY: TRESSA [facility] Ntyfvs4206 [facility] [id number] Cholesterol in LDL/Cholesterol in HDL [Mass ratio] 2.6 {ratio_units} Normal 0.0-3.2 [facility] Work Phone: Comment on above: PATIENT NOT FASTINGP ERFORMED BY: TRESSA [facility] Zdwrit7760 [facility] [id number] Cholesterol in VLDL [Mass/Vol] 36 mg/dL Normal 5-40 [facility] Work Phone: Comment on above: PATIENT NOT FASTINGP ERFORMED BY: CB [facility] Majqdm8573 [address] RoadDublin [place] [id number] Triglyceride [Mass/Vol] 180 mg/dL Abnormal 0-149 [facility] Work Phone: Comment on above: PATIENT NOT FASTINGP ERFORMED BY: CB [facility] Hcznwv4366 [address] RoadDublin [place] [id number] METABOLIC PANEL, COMPREHENSI VE (85413)Ordered By: Wine Steward on 07-09-2012 Albumin [Mass/Vol] 4.5 g/dL Normal 3.5-5.5 [facility] Internal Medicine Work Phone: Comment on above: PATIENT NOT FASTINGP ERFORMED BY: CB [facility] Umcmxm0494 [address] RoadDublin [place] [id number] Albumin/Globulin [Mass ratio] 1.6 {ratio} Normal 1.1-2.5 [facility] Work Phone: Comment on above: PATIENT NOT FASTINGP ERFORMED BY: CB [facility] Xwnckq6799 Walker RoadDublin [place] [id number] ALP [Catalytic activity/Vol] 77 [iU]/L Normal 25-150 [facility] Work Phone: Comment on above: PATIENT NOT FASTINGP ERFORMED BY: CB [facility] Wjatqf3084 [address] RoadDublin [place] [id number] ALP [Catalytic activity/Vol] 77 U/L Normal 25-150 [facility]; [facility] Work Phone: Comment on above: PATIENT NOT FASTINGP ERFORMED BY: CB [facility] Pzvonn3246 [address] RoadDublin [place] [id number] ALT [Catalytic activity/Vol] 20 [iU]/L Normal 0-40 [facility] Work Phone: Comment on above: Effective July 22, 2012 the reference interval for ALT (SGPT) will be changing to: Male Female 0 - 11 years 0 - 29 0 - 28 12 - 17 years 0 - 30 0 - 24 > 17 years 0 - 44 0 - 32 PATIENT NOT FASTINGP ERFORMED BY: CB [facility] Chearx6089 Walker RoadDublin [place] [id number] ALT [Catalytic activity/Vol] 20 U/L Normal 0-40 [facility]; [facility] Work Phone: Comment on above: Effective July 22, 2012 the reference interval for ALT (SGPT) will be changing to: Male Female 0 - 11 years 0 - 29 0 - 28 12 - 17 years 0 - 30 0 - 24 > 17 years 0 - 44 0 - 32 PATIENT NOT FASTINGP ERFORMED BY: CB [facility] Nfdnhn6125 [address] RoadDublin [place] [id number] AST [Catalytic activity/Vol] 24 [iU]/L Normal 0-40 [facility] Work Phone: Comment on above: PATIENT NOT FASTINGP ERFORMED BY: CB [facility] Hgilet3290 [address] RoadDublin [place] [id number] AST [Catalytic activity/Vol] 24 U/L Normal 0-40 [facility]; [facility] Work Phone: Comment on above: PATIENT NOT FASTINGP ERFORMED BY: CB [facility] Mobqup6247 [address] RoadDublin [place] [id number] Bilirubin [Mass/Vol] 0.4 mg/dL Normal 0.0-1.2 [facility] Work Phone: Comment on above: PATIENT NOT FASTINGP ERFORMED BY: CB [facility] Wnlrew4900 [address] RoadDublin [place] [id number] Calcium [Mass/Vol] 9.8 mg/dL Normal 8.7-10.2 [facility] Internal Medicine Work Phone: Comment on above: PATIENT NOT FASTINGP ERFORMED BY: CB [facility] Qmnony8678 [address] RoadDublin [place] [id number] Chloride [Moles/Vol] 101 mmol/L Normal 97-108 Comp [facility] Work Phone: Comment on above: PATIENT NOT FASTINGP ERFORMED BY: CB [facility] Tpfkho5087 [address] RoadDublin [place] [id number] CO2 [Moles/Vol] 23 mmol/L Normal 20-32 [facility] Internal Medicine Work Phone: Comment on above: PATIENT NOT FASTINGP ERFORMED BY: TRESSA [facility] Gpnsxz3684 [address] [facility] [id number] Creatinine [Mass/Vol] 0.67 mg/dL Normal 0.57-1.00 [facility] Work Phone: Comment on above: PATIENT NOT FASTINGP ERFORMED BY: CB [facility] Dqyjvr2696 [address] [facility] [id number] GFR/1.73 sq M predicted among blacks CKD-EPI (S/P/Bld) [Vol rate/Area] 114 mL/min/1.73 Normal [facility] Work Phone: Comment on above: PATIENT NOT FASTINGP ERFORMED BY: CB [facility] Iixnwu2079 [address] [facility] [id number] GFR/1.73 sq M predicted among non-blacks CKD-EPI (S/P/Bld) [Vol rate/Area] 99 mL/min/1.73 Normal [facility] Work Phone: Comment on above: PATIENT NOT FASTINGP ERFORMED BY: CB [facility] [id number] [address] [facility] [id number] Globulin (S) [Mass/Vol] 2.8 g/dL Normal 1.5-4.5 [facility] Work Phone: Comment on above: PATIENT NOT FASTINGP ERFORMED BY: CB [facility] [id number] [address] [facility] [id number] Glucose [Mass/Vol] 98 mg/dL Normal 65-99 [facility] Work Phone: Comment on above: PATIENT NOT FASTINGP ERFORMED BY: CB [facility] [id number] [address] [facility] [id number] Potassium [Moles/Vol] 4.6 mmol/L Normal 3.5-5.2 [facility] Work Phone: Comment on above: PATIENT NOT FASTINGP ERFORMED BY: CB [facility] [id number] [address] [facility] [place] [id number] Protein [Mass/Vol] 7.3 g/dL Normal 6.0-8.5 [facility] Work Phone: Comment on above: PATIENT NOT FASTINGP ERFORMED BY: CB [facility] [id number] Walker RoadDublin [place] [id number] Sodium [Moles/Vol] 139 mmol/L Normal 134-144 [facility] Work Phone: Comment on above: PATIENT NOT FASTINGP ERFORMED BY: CB [facility] [id number] Walker RoadDublin [place] [id number] Urea nitrogen [Mass/Vol] 17 mg/dL Normal 6-24 [facility] Work Phone: Comment on above: PATIENT NOT FASTINGP ERFORMED BY: CB [facility] [id number] Walker RoadDublin [place] [id number] Urea nitrogen/Creatinine [Mass ratio] 25 mg/mg Abnormal 9- [facility] Work Phone: Comment on above: PATIENT NOT FASTINGP ERFORMED BY: CB [facility] [id number] Walker RoadDublin [place] [id number] MICROALBUMIN URINE QUANT ([id number])Ordered By: Wine Steward on 07-09-2012 Albumin DL <= 20 mg/L (U) [Mass/Vol] 6.8 ug/mL Normal 0.0-17.0 [facility] Work Phone: Comment on above: PATIENT NOT FASTINGP ERFORMED BY: CB [facility] [id number] Walker RoadDublin [place] [id number] Albumin/Creatinine (U) [Mass ratio] 3.6 {mg/g_creat} Normal 0.0-30.0 [facility] Work Phone: Comment on above: PATIENT NOT FASTINGP ERFORMED BY: CB [facility] [id number] [address] RoadDublin [place] [id number] Creatinine (U) [Mass/Vol] 188.4 mg/dL Normal 15.0-278.0 [facility] Work Phone: Comment on above: PATIENT NOT FASTINGP ERFORMED BY: TRESSA [facility] [id number] Walker RoadDublin [place] [id number] TSH ([id number])Ordered By: Temi pete [employer] Deburrer on 07-09-2012 TSH Qn 1.340 {uIU/mL} Normal 0.450-4.50 0 [facility] Work Phone: Comment on above: PATIENT NOT FASTINGP ERFORMED BY: TRESSA [facility] [id number] [address] RoadDublin [place] [id number] Urinalysis, Office ([id number])Or dered By: Torri Lakhani on 07-09-2012 Bilirubin Ql (U) Negative Normal [facility] Work Phone: Bilirubin Ql (U) Negative Normal [facility]; [facility] Work Phone: Glucose Test strip (U) [Mass/Vol] Negative Normal [facility] Work Phone: Glucose Test strip (U) [Mass/Vol] Negative Normal [facility]; [facility] Work Phone: Hemoglobin Ql (U) Hemolyzed Trace Normal Co m[facility] Work Phone: Ketones Ql (U) Negative Normal [facility] Work Phone: Ketones Ql (U) Negative Normal [facility]; [facility] Work Phone: Leukocyte esterase Test strip Ql (U) Negative Normal [facility] Work Phone: Leukocyte esterase Test strip Ql (U) Negative Normal [facility]; [facility] Work Phone: Nitrite Ql (U) Negative Normal [facility] Work Phone: Nitrite Ql (U) Negative Normal [facility]; [facility] Work Phone: pH (U) 6.0 [pH] Normal [facility] Work Phone: Comment on above: 5.5 Protein Ql (U) Negative Normal [facility] Work Phone: Protein Ql (U) Negative Normal [facility]; [facility] Work Phone: Specific gravity (U) [Rel density] 1.025 1 Normal [facility] Work Phone: Comment on above: >=1.030 Urobilinogen (24H U) [Mass/Time] Normal Normal [facility] Work Phone: CBCD,SMEAR DIFFOrdered By: Bailey sanabria [employer] Deburrer on 08-23-2009 Eosinophils/100 WBC (Bld) 3 % Normal 0-5 [facility] Work Phone: Erythrocyte distribution width (RBC) [Ratio] 12.7 % Normal 11.6-14.6 [facility] Work Phone: Hematocrit (Bld) [Volume fraction] 36.7 % Abnormal 37-47 [facility] Work Phone: Hemoglobin (Bld) [Mass/Vol] 12.5 g/dL Normal 12.0-16.0 [facility] Work Phone: Lymphocytes/100 WBC (Bld) 38 % Normal 19-41 [facility] Work Phone: MCH (RBC) [Entitic mass] 32.0 pg Normal 27.0-32.0 [facility] Work Phone: MCHC (RBC) [Mass/Vol] 34.0 g/dL Normal 32-36 [facility] Work Phone: MCV (RBC) [Entitic vol] 94.3 fL Normal 81-99 [facility] Work Phone: Monocytes/100 WBC (Bld) 5 % Normal 0-10 [facility] Work Phone: Platelets (Bld) [#/Vol] SeeNote Normal [facility] Work Phone: Comment on above: Result: ADEQUATE Platelets (Bld) [#/Vol] 268 10*3/uL Normal 150-450 [facility] Work Phone: RBC (Bld) [#/Vol] 3.89 {M/mm3} Abnormal 4.2-5.4 [facility] Work Phone: WBC (Bld) [#/Vol] 6.7 10*3/uL Normal 4.4-11.0 [facility] Work Phone: CBCD,SMEAR DIFF 1 % Normal 0-5 [facility] Work Phone: CBCD,SMEAR DIFF 100 1 Normal [facility] Work Phone: CBCD,SMEAR DIFF SeeNote Normal [facility] Work Phone: Comment on above: Result: NORM C+C CBCD,SMEAR DIFF 53 % Normal 47-70 [facility] Work Phone: COMP METABOLICOrdered By: Hilario stem [employer] Deburrer on 08-23-2009 Albumin [Mass/Vol] 3.6 g/dL Normal 3.4-5.0 [facility] Work Phone: Albumin/Globulin [Mass ratio] 0.9 {RATIO} Normal 0.9-2.4 [facility] Work Phone: ALP [Catalytic activity/Vol] 79 U/L Normal 50-136 [facility] Work Phone: ALT [Catalytic activity/Vol] 17 U/L Normal 12-78 [facility] Work Phone: Comment on above: Please Note: Gentry ed Reference Range effective 09 Anion gap [Moles/Vol] 7 mmol/L Normal 5-15 [facility] Work Phone: AST [Catalytic activity/Vol] 7 U/L Abnormal 15-37 [facility] Work Phone: Bilirubin [Mass/Vol] 0.40 mg/dL Normal 0.00-1.00 [facility] Work Phone: Calcium [Mass/Vol] 8.9 mg/dL Normal 8.5-10.1 [facility] Work Phone: Chloride [Moles/Vol] 103 mmol/L Normal 98-107 [facility] Work Phone: CO2 [Moles/Vol] 26.0 mmol/L Normal 21.0-32.0 [facility] Work Phone: Creatinine [Mass/Vol] 0.8 mg/dL Normal 0.6-1.0 [facility] Work Phone: GFR/1.73 sq M predicted among blacks MDRD (S/P/Bld) [Vol rate/Area] 99 mL/min/{1.73_m2} Normal [facility] Work Phone: GFR/1.73 sq M.predicted MDRD (S/P/Bld) [Vol rate/Area] 82 mL/min/{1.73_m2} Normal [facility] Work Phone: Globulin (S) [Mass/Vol] 3.9 g/dL Normal 2.7-4.2 [facility] Work Phone: Glucose [Mass/Vol] 101 mg/dL Normal 70-110 [facility] Work Phone: Potassium [Moles/Vol] 3.9 mmol/L Normal 3.5-5.1 [facility] Work Phone: Protein [Mass/Vol] 7.5 g/dL Normal 6.4-8.2 [facility] Work Phone: Sodium [Moles/Vol] 136 mmol/L Normal 136-145 [facility] Work Phone: Urea nitrogen [Mass/Vol] 9 mg/dL Normal 7-18 [facility] Work Phone: Urea nitrogen/Creatinine [Mass ratio] 11.3 {RATIO} Normal 10-20 [facility] Work Phone: LIPIDOrdered By: Bhavik goncalves on 08-23-2009 Cholesterol [Mass/Vol] 190 mg/dL Normal [facility] Work Phone: Comment on above: <200 mg/dL Desirable 200-240 mg/dL Borderline >240 mg/dL High Risk Cholesterol in HDL [Mass/Vol] 45 mg/dL Normal [facility] Work Phone: Comment on above: Reference Range HDL <40 mg/dL Low HDL Cholesterol HDL >or= 60 mg/dL High HDL Cholesterol Cholesterol in LDL [Mass/Vol] 127 mg/dL Normal 0-130 [facility] Work Phone: Cholesterol in VLDL [Mass/Vol] 18 mg/dL Normal 5-40 [facility] Work Phone: Triglyceride [Mass/Vol] 88 mg/dL Normal [facility] Work Phone: Comment on above: Serum Triglycerides Reference Interval Normal <150 mg/dL Borderline high 150 - 199 mg/dL High 200 - 499 mg/dL Very High > or = 500 mg/dL TSHOrdered By: System Manage r on 08-23-2009 TSH Qn 0.98 {uIU/mL} Normal 0.358-3.74 [facility] Work Phone: COMP METABOLICOrdered By: Sy stem [employer] Deburrer on 02-25-2009 Albumin [Mass/Vol] 3.4 g/dL Normal 3.4-5.0 [facility] Work Phone: Albumin/Globulin [Mass ratio] 0.9 {RATIO} Normal 0.9-2.4 [facility] Work Phone: ALP [Catalytic activity/Vol] 88 U/L Normal 50-136 [facility] Work Phone: ALT [Catalytic activity/Vol] 21 U/L Abnormal 30-65 [facility] Work Phone: Anion gap [Moles/Vol] 6 mmol/L Normal 5-15 [facility] Work Phone: AST [Catalytic activity/Vol] 9 U/L Abnormal 15-37 [facility] Work Phone: Bilirubin [Mass/Vol] 0.40 mg/dL Normal 0.00-1.00 [facility] rehensive Internal Medicine Work Phone: Calcium [Mass/Vol] 8.6 mg/dL Normal 8.5-10.1 [facility] Work Phone: Chloride [Moles/Vol] 103 mmol/L Normal 98-107 Comp rehensive [facility] Work Phone: CO2 [Moles/Vol] 27.0 mmol/L Normal 21.0-32.0 Compre[facility] ns[facility] Work Phone: Creatinine [Mass/Vol] 1.0 mg/dL Normal 0.6-1.0 [facility] Work Phone: GFR/1.73 sq M predicted among blacks MDRD (S/P/Bld) [Vol rate/Area] 76 mL/min/{1.73_m2} Normal [facility] Work Phone: GFR/1.73 sq M.predicted MDRD (S/P/Bld) [Vol rate/Area] 63 mL/min/{1.73_m2} Normal [facility] Work Phone: Globulin (S) [Mass/Vol] 4.0 g/dL Normal 2.7-4.2 [facility] Work Phone: Glucose [Mass/Vol] 90 mg/dL Normal 70-110 [facility] Work Phone: Potassium [Moles/Vol] 4.2 mmol/L Normal 3.5-5.1 [facility] Work Phone: Protein [Mass/Vol] 7.4 g/dL Normal 6.4-8.2 [facility] Work Phone: Sodium [Moles/Vol] 136 mmol/L Normal 136-145 [facility] Work Phone: Urea nitrogen [Mass/Vol] 10 mg/dL Normal 7-18 [facility] Work Phone: Urea nitrogen/Creatinine [Mass ratio] 10.0 {RATIO} Normal 10-20 [facility] Work Phone: LIPIDOrdered By: Bhavik goncalves on 02-25-2009 Cholesterol [Mass/Vol] 207 mg/dL Abnormal [facility] Work Phone: Comment on above: <200 mg/dL Desirable 200-240 mg/dL Borderline >240 mg/dL High Risk Cholesterol in HDL [Mass/Vol] 42 mg/dL Normal [facility] Work Phone: Comment on above: Reference Range HDL <40 mg/dL Low HDL Cholesterol HDL >or= 60 mg/dL High HDL Cholesterol Cholesterol in LDL [Mass/Vol] 147 mg/dL Abnormal 0-130 [facility] Work Phone: Cholesterol in VLDL [Mass/Vol] 18 mg/dL Normal 5-40 [facility] Work Phone: Triglyceride [Mass/Vol] 88 mg/dL Normal [facility] Work Phone: Comment on above: Serum Triglycerides Reference Interval Normal <150 mg/dL Borderline high 150 - 199 mg/dL High 200 - 499 mg/dL Very High > or = 500 mg/dL VITAMIN [id number] By: Temi pete [employer] Deburrer on 02-25-2009 Cobalamin (Vitamin B12) [Mass/Vol] 576 pg/mL Normal 254-1320 [facility] Work Phone: Vital Signs Date Time Vital Sign Value Performing Clinician Facility 07-12-2023 07:07-0400 Body height 152.4 cm DARCI Dias LPN [facility]; [facility] Work Phone: 07-12-2023 07:07-0400 Body mass index (BMI) [Ratio] 24.02 kg/m2 DARCI Dias LPN [facility]; [facility] Work Phone: 07-12-2023 07:07-0400 Body surface area Derived from formula 1.52 m2 DARCI Dias LPN [facility]; [facility] Work Phone: 07-12-2023 07:07-0400 Body temperature 97.6 [degF] DARCI Dias LPN [facility]; [facility] Work Phone: 07-12-2023 07:07-0400 Body weight 55.79 kg DARCI Dias LPN [facility]; [facility] Work Phone: 07-12-2023 07:07-0400 Diastolic blood pressure 78 mm[Hg] DARCI Dias LPN [facility]; [facility] Work Phone: 07-12-2023 07:07-0400 Heart rate 66 /min DARCI Dias STUDENT WORKER [facility]; [facility] Work Phone: 07-12-2023 07:07-0400 Respiratory rate 18 /min DARCI Dias STUDENT WORKER [facility]; [facility] Work Phone: 07-12-2023 07:07-0400 SaO2% (BldA) [Mass fraction] 97 % DARCI Dias STUDENT WORKER [facility]; [facility] Work Phone: 07-12-2023 07:07-0400 Systolic blood pressure 120 mm[Hg] DARCI Dias STUDENT WORKER [facility]; [facility] Work Phone: 01-11-2023 07:03-0400 Body height 152.4 cm Iman Ballardon DO Work Phone: [facility]; [facility] Work Phone: 01-11-2023 07:03-0400 Body mass index (BMI) [Ratio] 24.41 kg/m2 Iman Mansi DO Work Phone: [facility]; [facility] Work Phone: 01-11-2023 07:03-0400 Body surface area Derived from formula 1.53 m2 Iman Mansi DO Work Phone: [facility]; [facility] Work Phone: 01-11-2023 07:03-0400 Body temperature 97.3 [degF] Iman Mansi DO Work Phone: [facility]; [facility] Work Phone: 01-11-2023 07:03-0400 Body weight 56.7 kg Iman Mansi DO Work Phone: [facility]; [facility] Work Phone: 01-11-2023 07:03-0400 Diastolic blood pressure 80 mm[Hg] Iman Mansi DO Work Phone: [facility]; [facility] Work Phone: 01-11-2023 07:03-0400 Heart rate 73 /min Iman Mansi DO Work Phone: [facility]; [facility] Work Phone: 01-11-2023 07:03-0400 Respiratory rate 16 /min Iman Mansi DO Work Phone: [facility]; [facility] Work Phone: 01-11-2023 07:03-0400 SaO2% (BldA) [Mass fraction] 97 % Iman Mansi DO Work Phone: [facility]; [facility] Work Phone: 01-11-2023 07:03-0400 Systolic blood pressure 130 mm[Hg] Iman Mansi DO Work Phone: [facility]; [facility] Work Phone: 08-14-2022 13:10-0500 Body height 152.4 cm [facility]; [facility] Work Phone: 08-14-2022 13:10-0500 Body mass index (BMI) [Ratio] 23.92 kg/m2 [facility]; [facility] Work Phone: 08-14-2022 13:10-0500 Body surface area Derived from formula 1.52 m2 [facility]; [facility] Work Phone: 08-14-2022 13:10-0500 Body temperature 96.9 [degF] [facility]; [facility] Work Phone: 08-14-2022 13:10-0500 Body weight 55.57 kg [facility]; [facility] Work Phone: 08-14-2022 13:10-0500 Diastolic blood pressure 82 mm[Hg] [facility]; [facility] Work Phone: 08-14-2022 13:10-0500 Heart rate 70 /min Eugenia Butch [facility]; [facility] Work Phone: 08-14-2022 13:10-0500 [facility] 16 [facility] Work Phone: 08-14-2022 13:10-0500 SaO2% (BldA) [Mass fraction] 98 % [facility]; [facility] Work Phone: 08-14-2022 13:10-0500 [facility]stolic blood pressure 122 mm[Hg[facility] Work Phone: 07-07-2022 07:15-0400 Body height 152.4 cm Melquiades Truong LPN [facility]; [facility] Work Phone: 07-07-2022 07:15-0400 Body mass index (BMI) [Ratio] 23.75 kg/m2 Melquiades Truong LPN [facility]; [facility] Work Phone: 07-07-2022 07:15-0400 Body surface area Derived from formula 1.51 m2 Melquiades Truong LPN [facility]; [facility] Work Phone: 07-07-2022 07:15-0400 Body temperature 97.1 [degF] Melquiades Truong LPN [facility]; [facility] Work Phone: 07-07-2022 07:15-0400 Body weight 55.16 kg Melquiades Truong LPN [facility]; [facility] Work Phone: 07-07-2022 07:15-0400 Diastolic blood pressure 70 mm[Hg] Melquiades Truong LPN [facility]; [facility] Work Phone: 07-07-2022 07:15-0400 Heart rate 69 /min Melquiades Truong LPN [facility]; [facility] Work Phone: 07-07-2022 07:15-0400 Respiratory rate 16 /min Melquiades Truong LPN [facility]; [facility] Work Phone: 07-07-2022 07:15-0400 SaO2% (BldA) [Mass fraction] 97 % Melquiades Truong LPN [facility]; [facility] Work Phone: 07-07-2022 07:15-0400 Systolic blood pressure 118 mm[Hg] Melquiades Truong LPN [facility]; [facility] Work Phone: 05-04-2022 09:06-0400 Body height 152.[address] Iman Nazario Work Phone: [facility] Work Phone: 05-04-2022 09:06-0400 Body mass index (BMI) [Ratio] 23.4 kg/m2 Dr. Iman Nazario Work Phone: [facility] Work Phone: 05-04-2022 09:06-0400 Body weight 54.[address] Iman Nazario Work Phone: [facility] Work Phone: 04-28-2022 10:33-0400 Body height 152.4 cm Lita Villanueva LPN [facility]; [facility] Work Phone: 04-28-2022 10:33-0400 Body mass index (BMI) [Ratio] 23.85 kg/m2 Lita Rich MOLINA [facility]; [facility] Work Phone: 04-28-2022 10:33-0400 Body surface area Derived from formula 1.51 m2 Lita Villanueva LPN [facility]; [facility] Work Phone: 04-28-2022 10:33-0400 Body temperature 96.9 [degF] Lita Rich MOLINA [facility]; [facility] Work Phone: 04-28-2022 10:33-0400 Body weight 55.4 kg Lita Slarb TRACY [facility]; [facility] Work Phone: 04-28-2022 10:33-0400 Diastolic blood pressure 78 mm[Hg] Lita Slarb STUDENT WORKER [facility]; [facility] Work Phone: 04-28-2022 10:33-0400 Heart rate 67 /min Lita Slarb STUDENT WORKER [facility]; [facility] Work Phone: 04-28-2022 10:33-0400 Respiratory rate 16 /min Lita Slarb STUDENT WORKER [facility]; [facility] Work Phone: 04-28-2022 10:33-0400 SaO2% (BldA) [Mass fraction] 97 % Lita Slarb STUDENT WORKER [facility]; [facility] Work Phone: 04-28-2022 10:33-0400 Systolic blood pressure 120 mm[Hg] Lita Slarb STUDENT WORKER [facility]; [facility] Work Phone: 01-04-2022 08:09-0400 Body height 152.4 cm Johana Arnett [facility]; [facility] Work Phone: 01-04-2022 08:09-0400 Body mass index (BMI) [Ratio] 23.85 kg/m2 Johana Hancockius [facility]; [facility] Work Phone: 01-04-2022 08:09-0400 Body surface area Derived from formula 1.51 m2 Johana Hancockius [facility]; [facility] Work Phone: 01-04-2022 08:09-0400 Body temperature 97.3 [degF] Johana Hancockius [facility]; [facility] Work Phone: 01-04-2022 08:09-0400 Body weight 55.4 kg Johana Arnett [facility]; [facility] Work Phone: 01-04-2022 08:09-0400 Diastolic blood pressure 78 mm[Hg] Johana Karissaius [facility]; [facility] Work Phone: 01-04-2022 08:09-0400 Heart rate 68 /min Johana Hancockius [facility]; [facility] Work Phone: 04-13-2022 08:09-0400 Respiratory rate 16 /min Johana Arnett [facility]; [facility] Work Phone: 01-04-2022 08:09-0400 SaO2% (BldA) [Mass fraction] 97 % Johana Arnett [facility]; [facility] Work Phone: 01-04-2022 08:09-0400 Systolic blood pressure 137 mm[Hg] Johana Arnett [facility]; [facility] Work Phone: 07-01-2021 13:31-0400 Body height 152.4 cm Rose Cervantes [facility]; [facility] Work Phone: 07-01-2021 13:31-0400 Body mass index (BMI) [Ratio] 21.9 kg/m2 Rose Cervantes [facility]; [facility] Work Phone: 07-01-2021 13:31-0400 Body surface area Derived from formula 1.46 m2 Rose Cervantes [facility]; [facility] Work Phone: 07-01-2021 13:31-0400 Body temperature 97.1 [degF] Rose Cervantes [facility]; [facility] Work Phone: Comment on above: Method: Thermal Scan 07-01-2021 13:31-0400 Body weight 50.86 kg Rose Cervantes [facility]; [facility] Work Phone: 07-01-2021 13:31-0400 Diastolic blood pressure 62 mm[Hg] Rose Cervantes [facility]; [facility] Work Phone: Comment on above: Patient Position: Sitting; Cuff Location : Left Arm; Cuff Size: Standard 07-01-2021 13:31-0400 Heart rate 74 /min Rose Cervantes [facility]; [facility] Work Phone: Comment on above: Pattern: Regular 07-01-2021 13:31-0400 Respiratory rate 16 /min Rose Cervantes [facility]; [facility] Work Phone: Comment on above: Pattern: Unlabored 07-01-2021 13:31-0400 Systolic blood pressure 126 mm[Hg] Rose Cervantes [facility]; [facility] Work Phone: Comment on above: Patient Position: Sitting; Cuff Location : Left Arm; Cuff Size: Standard 04-01-2021 09:14-0400 Body height 152.4 cm Jonelle Vines [facility]; [facility] Work Phone: Comment on above: eye exams yearlyhearing [facility] 04-01-2021 09:14-0400 Body mass index (BMI) [Ratio] 23.44 kg/m2 Jonelle Vines [facility]; [facility] Work Phone: 04-01-2021 09:14-0400 Body mass index (BMI) [Ratio] 21.9 kg/m2 Lita Villanueva [facility]; [facility] Work Phone: Comment on above: eye exams yearlyhearing [facility] 04-01-2021 09:14-0400 Body surface area Derived from formula 1.5 m2 Jonelle Mohinder [facility]; [facility] Work Phone: 04-01-2021 09:14-0400 Body surface area Derived from formula 1.46 m2 Lita Villanueva [facility]; [facility] Work Phone: Comment on above: eye exams yearlyhearing [facility] 04-01-2021 09:14-0400 Body temperature 97.3 [degF] Lita Villanueva [facility]; [facility] Work Phone: Comment on above: eye exams yearlyhearing [facility] 04-01-2021 09:14-0400 Body weight 54.43 kg Jonelle Vines [facility]; [facility] Work Phone: 04-01-2021 09:14-0400 Body weight 50.86 kg Lita Villanueva [facility]; [facility] Work Phone: Comment on above: eye exams yearlyhearing [facility] 04-01-2021 09:14-0400 Diastolic blood pressure 78 mm[Hg] Lita Villanueva LPN [facility]; [facility] Work Phone: Comment on above: Patient Position: Sitting; Cuff Location : Left Arm; Cuff Size: Standard eye exams [facility]hear [facility] 04-01-2021 09:14-0400 Heart rate 68 /min Lita Villanueva LPN [facility]; [facility] Work Phone: Comment on above: Pattern: Regular eye exams [facility]hear [facility] 04-01-2021 09:14-0400 Respiratory rate 16 /min Lita Villanueva LPN [facility]; [facility] Work Phone: Comment on above: Pattern: Unlabored eye exams yearlyhear [facility] 04-01-2021 09:14-0400 SaO2% (BldA) [Mass fraction] 97 % Lita Villanueva LPN [facility]; [facility] Work Phone: Comment on above: Room air eye exams [facility]hear [facility] 04-01-2021 09:14-0400 Systolic blood pressure 122 mm[Hg] Lita Villanueva LPN [facility]; [facility] Work Phone: Comment on above: Patient Position: Sitting; Cuff Location : Left Arm; Cuff Size: Standard eye exams [facility] 11-21-2019 07:06-0500 BMI (Body Mass Index) 23.44 kg/m2 Funmi Lezama RN [facility] Work Phone: 11-21-2019 07:06-0500 Body weight 54.43 kg Funmi Lezama RN [facility] Work Phone: 11-21-2019 07:06-0500 BP Diastolic 78 mm[Hg] Funmi Lezama RN [facility] Work Phone: Comment on above: Patient Position: Sitting; Cuff Location : Left Arm; Cuff Size: Standard 11-21-2019 07:06-0500 BP Systolic 142 mm[Hg] Funmi Lezama RN [facility] Work Phone: Comment on above: Patient Position: Sitting; Cuff Location : Left Arm; Cuff Size: Standard 11-21-2019 07:06-0500 BSA (Body Surface Area) 1.5 m2 Funmi Lezama RN [facility] Work Phone: 11-21-2019 07:06-0500 Height 152.4 cm Funmi Lezama RN [facility] Work Phone: 11-21-2019 07:06-0500 Pulse (Heart Rate) 76 /min Funmi Lezama RN [facility] Work Phone: Comment on above: Pattern: Regular 11-21-2019 07:06-0500 Pulse Oximetry 97 % Iman Nazario [facility] Work Phone: Comment on above: Room air 11-21-2019 07:06-0500 Respiratory Rate 18 /min Funmi Lezama RN [facility] Work Phone: Comment on above: Pattern: Unlabored 11-21-2019 07:06-0500 SaO2% (BldA) [Mass fraction] 97 % Funmi Lezama RN [facility] Internal Medicine; [facility] Work Phone: Comment on above: Room air 05-22-2019 08:51-0400 BMI (Body Mass Index) 23.63 kg/m2 Lita Slarb [facility] Internal Medicine Work Phone: 05-22-2019 08:51-0400 Body weight 54.89 kg Lita Slarb STUDENT WORKER [facility] Internal Medicine Work Phone: 05-22-2019 08:51-0400 BP Diastolic 80 mm[Hg] Lita Slarb STUDENT WORKER [facility] Internal Medicine Work Phone: Comment on above: Patient Position: Sitting; Cuff Location : Left Arm; Cuff Size: Standard 05-22-2019 08:51-0400 BP Systolic 124 mm[Hg] Lita Slarb STUDENT WORKER [facility] Internal Medicine Work Phone: Comment on above: Patient Position: Sitting; Cuff Location : Left Arm; Cuff Size: Standard 05-22-2019 08:51-0400 BSA (Body Surface Area) 1.51 m2 Lita Slarb STUDENT WORKER [facility] Internal Medicine Work Phone: 05-22-2019 08:51-0400 Height 152.4 cm Lita Villanueva TRACY [facility] Work Phone: 05-22-2019 08:51-0400 Pulse (Heart Rate) 68 /min Lita Villanueva STUDENT WORKER [facility] Work Phone: Comment on above: Pattern: Regular 05-22-2019 08:51-0400 Pulse Oximetry 98 % Iman Nazario [facility] Work Phone: Comment on above: Room air 05-22-2019 08:51-0400 Respiratory Rate 17 /min Litack Villanueva STUDENT WORKER [facility] Work Phone: Comment on above: Pattern: Unlabored 05-22-2019 08:51-0400 SaO2% (BldA) [Mass fraction] 98 % Lita Slaneli [place] [facility]; [facility] Work Phone: Comment on above: Room air 05-28-2018 09:27-0400 BMI (Body Mass Index) 22.73 kg/m2 Funmi Lezama RN [facility] Work Phone: 05-28-2018 09:27-0400 Body Temperature 97.9 [degF] Funmi Lezama RN [facility] Work Phone: Comment on above: Method: Temporal 05-28-2018 09:27-0400 Body weight 52.79 kg Funmi Lezama RN [facility] Work Phone: 05-28-2018 09:27-0400 BP Diastolic 68 mm[Hg] Funmi Lezama RN [facility] Work Phone: Comment on above: Patient Position: Sitting; Cuff Location : Left Arm; Cuff Size: Large 05-28-2018 09:27-0400 BP Systolic 118 mm[Hg] Funmi Lezama RN [facility] Work Phone: Comment on above: Patient Position: Sitting; Cuff Location : Left Arm; Cuff Size: Large 05-28-2018 09:27-0400 BSA (Body Surface Area) 1.48 m2 Funmi Lezama RN [facility] Work Phone: 05-28-2018 09:27-0400 Height 152.4 cm Funmi Lezama RN [facility] Work Phone: 05-28-2018 09:27-0400 Pulse (Heart Rate) 86 /min Funmi Lezama RN [facility] Work Phone: Comment on above: Pattern: Regular 05-28-2018 09:27-0400 Pulse Oximetry 96 % Iman Nazario [facility] Work Phone: Comment on above: Room air 05-28-2018 09:27-0400 Respiratory Rate 18 /min Funmi Lezama RN [facility] Work Phone: Comment on above: Pattern: Unlabored 05-28-2018 09:27-0400 SaO2% (BldA) [Mass fraction] 96 % Funmi Lezama RN [facility]; [facility] Work Phone: Comment on above: Room air 05-28-2018 09:27-0400 Weight 52.79 kg Iman Nazario [facility] Work Phone: 04-12-2018 07:44-0400 BMI (Body Mass Index) 22.56 kg/m2 Funmi Lezama RN [facility] Work Phone: 04-12-2018 07:44-0400 Body weight 52.39 kg Funmi Lezama RN [facility] Work Phone: 04-12-2018 07:44-0400 BP Diastolic 74 mm[Hg] Funmi Lezama RN [facility] Work Phone: Comment on above: Patient Position: Sitting; Cuff Location : Left Arm; Cuff Size: Standard 04-12-2018 07:44-0400 BP Systolic 124 mm[Hg] Funmi Lezama RN [facility] Work Phone: Comment on above: Patient Position: Sitting; Cuff Location : Left Arm; Cuff Size: Standard 04-12-2018 07:44-0400 BSA (Body Surface Area) 1.48 m2 Funmi Lezama RN [facility] Work Phone: 04-12-2018 07:44-0400 Height 152.4 cm Funmi Lezama RN [facility] Work Phone: 04-12-2018 07:44-0400 Pulse (Heart Rate) 84 /min Funmi Lezama RN [facility] Work Phone: Comment on above: Pattern: Regular 04-12-2018 07:44-0400 Pulse Oximetry 99 % Iman Nazario [facility] Work Phone: Comment on above: Room air 04-12-2018 07:44-0400 Respiratory Rate 16 /min Funmi Lezama RN [facility] Work Phone: Comment on above: Pattern: Unlabored 04-12-2018 07:44-0400 SaO2% (BldA) [Mass fraction] 99 % Funmi Lezama RN [facility]; [facility] Work Phone: Comment on above: Room air 04-12-2018 07:44-0400 Weight 52.39 kg Iman Nazario [facility] Work Phone: 04-05-2018 09:04-0400 BMI (Body Mass Index) 22.7 kg/m2 Funmi Lezama RN [facility] Work Phone: 04-05-2018 09:04-0400 Body weight 52.73 kg Funmi Lezama RN [facility] Work Phone: 04-05-2018 09:04-0400 BP Diastolic 78 mm[Hg] Funmi Lezama RN [facility] Work Phone: Comment on above: Patient Position: Sitting; Cuff Location : Left Arm; Cuff Size: Standard 04-05-2018 09:04-0400 BP Systolic 142 mm[Hg] Funmi Lezama RN [facility] Work Phone: Comment on above: Patient Position: Sitting; Cuff Location : Left Arm; Cuff Size: Standard 04-05-2018 09:04-0400 BSA (Body Surface Area) 1.48 m2 Funmi Lezama RN [facility] Work Phone: 04-05-2018 09:04-0400 Height 152.4 cm Funmi Lezama RN [facility] Work Phone: 04-05-2018 09:04-0400 Pulse (Heart Rate) 80 /min Funmi Lezama RN [facility] Work Phone: Comment on above: Pattern: Regular 04-05-2018 09:04-0400 Pulse Oximetry 98 % Iman Ballardon [facility] Work Phone: Comment on above: Room air 04-05-2018 09:04-0400 Respiratory Rate 18 /min Funmi Lezama RN [facility] Work Phone: Comment on above: Pattern: Unlabored 04-05-2018 09:04-0400 SaO2% (BldA) [Mass fraction] 98 % Funmi Lezama RN [facility]; [facility] Work Phone: Comment on above: Room air 04-05-2018 09:04-0400 Weight 52.73 kg Iman Ballardon [facility] Work Phone: 10-11-2017 08:09-0500 BMI (Body Mass Index) 23.24 kg/m2 Funmi Lezama RN [facility] Work Phone: 10-11-2017 08:09-0500 Body weight 53.98 kg Funmi Lezama RN [facility] Work Phone: 10-11-2017 08:09-0500 BP Diastolic 78 mm[Hg] Funmi Lezama RN [facility] Work Phone: Comment on above: Patient Position: Sitting; Cuff Location : Left Arm; Cuff Size: Standard 10-11-2017 08:09-0500 BP Systolic 120 mm[Hg] Funmi Lezama RN [facility] Work Phone: Comment on above: Patient Position: Sitting; Cuff Location : Left Arm; Cuff Size: Standard 10-11-2017 08:09-0500 BSA (Body Surface Area) 1.5 m2 Funmi Lezama RN [facility] Work Phone: 10-11-2017 08:09-0500 Height 152.4 cm Funmi Lezama RN [facility] Work Phone: 10-11-2017 08:09-0500 Pulse (Heart Rate) 86 /min Funmi Lezama RN [facility] Work Phone: Comment on above: Pattern: Regular 10-11-2017 08:09-0500 Pulse Oximetry 97 % Iman Mansi [facility] Work Phone: Comment on above: Room air 10-11-2017 08:09-0500 Respiratory Rate 18 /min Funmi Lezama RN [facility] Work Phone: Comment on above: Pattern: Unlabored 10-11-2017 08:09-0500 SaO2% (BldA) [Mass fraction] 97 % Funmi Lezama RN [facility]; [facility] Work Phone: Comment on above: Room air 10-11-2017 08:09-0500 Weight 53.98 kg Iman Nazario [facility] Work Phone: 09-19-2017 09:44-0500 BMI (Body Mass Index) 23.44 kg/m2 Michelle Dean RN [facility] Internal Medicine Work Phone: 09-19-2017 09:44-0500 Body Temperature 98.2 [degF] Michelle Dean RN [facility] Work Phone: Comment on above: Method: Temporal 09-19-2017 09:44-0500 Body weight 54.43 kg Michelle Dean RN [facility] Work Phone: 09-19-2017 09:44-0500 BP Diastolic 82 mm[Hg] Michelle Dean RN [facility] Work Phone: Comment on above: Patient Position: Sitting; Cuff Location : Left Arm; Cuff Size: Standard 09-19-2017 09:44-0500 BP Systolic 140 mm[Hg] Michelle Dean RN [facility] Work Phone: Comment on above: Patient Position: Sitting; Cuff Location : Left Arm; Cuff Size: Standard 09-19-2017 09:44-0500 BSA (Body Surface Area) 1.5 m2 Michelle Dean RN [facility] Work Phone: 09-19-2017 09:44-0500 Height 152.4 cm Michelle Dean RN [facility] Work Phone: 09-19-2017 09:44-0500 Pulse (Heart Rate) 88 /min Michelle Dean RN [facility] Work Phone: Comment on above: Pattern: Regular 09-19-2017 09:44-0500 Respiratory Rate 16 /min Michelle Dean RN [facility] Work Phone: Comment on above: Pattern: Unlabored 09-19-2017 09:44-0500 Weight 54.43 kg Iman Nazario [facility] Work Phone: 12-28-2016 08:03-0400 BMI (Body Mass Index) 23.88 kg/m2 Funmi Lezama RN [facility] Work Phone: 12-28-2016 08:03-0400 Body weight 55.45 kg Funmi Lezama RN [facility] Work Phone: 12-28-2016 08:03-0400 BP Diastolic 60 mm[Hg] Funmi Lezama RN [facility] Work Phone: Comment on above: Patient Position: Sitting; Cuff Location : Left Arm; Cuff Size: Standard 12-28-2016 08:03-0400 BP Systolic 122 mm[Hg] Funmi Lezama RN [facility] Work Phone: Comment on above: Patient Position: Sitting; Cuff Location : Left Arm; Cuff Size: Standard 12-28-2016 08:03-0400 BSA (Body Surface Area) 1.51 m2 Funmi Lezama RN [facility] Work Phone: 12-28-2016 08:03-0400 Height 152.4 cm Funmi Lezama RN [facility] Work Phone: 12-28-2016 08:03-0400 Pulse (Heart Rate) 90 /min Funmi Lezama RN [facility] Work Phone: Comment on above: Pattern: Regular 12-28-2016 08:03-0400 Pulse Oximetry 97 % Iman Mansi [facility] Work Phone: Comment on above: Room air 12-28-2016 08:03-0400 Respiratory Rate 18 /min Funmi Lezama RN [facility] Work Phone: Comment on above: Pattern: Unlabored 12-28-2016 08:03-0400 SaO2% (BldA) [Mass fraction] 97 % Funmi Lezama RN [facility]; [facility] Work Phone: Comment on above: Room air 12-28-2016 08:03-0400 Weight 55.45 kg Iman Nazario [facility] Work Phone: 05-25-2016 08:44-0400 BMI (Body Mass Index) 24.12 kg/m2 Funmi Lezama RN [facility] Work Phone: 05-25-2016 08:44-0400 Body weight 56.02 kg Funmi Lezama RN [facility] Work Phone: 05-25-2016 08:44-0400 BP Diastolic 76 mm[Hg] Funmi Lezama RN [facility] Work Phone: Comment on above: Patient Position: Sitting; Cuff Location : Left Arm; Cuff Size: Standard 05-25-2016 08:44-0400 BP Systolic 128 mm[Hg] Funmi Lezama RN [facility] Work Phone: Comment on above: Patient Position: Sitting; Cuff Location : Left Arm; Cuff Size: Standard 05-25-2016 08:44-0400 BSA (Body Surface Area) 1.52 m2 Funmi Lezama RN [facility] Work Phone: 05-25-2016 08:44-0400 Height 152.4 cm Funim Lezama RN [facility] Work Phone: 05-25-2016 08:44-0400 Pulse (Heart Rate) 88 /min Funmi Lezama RN [facility] Work Phone: Comment on above: Pattern: Regular 05-25-2016 08:44-0400 Pulse Oximetry 97 % Iman Nazario [facility] Work Phone: Comment on above: Room air 05-25-2016 08:44-0400 Respiratory Rate 18 /min Funmi Lezama RN [facility] Work Phone: Comment on above: Pattern: Unlabored 05-25-2016 08:44-0400 SaO2% (BldA) [Mass fraction] 97 % Funmi Lezama RN [facility]; [facility] Work Phone: Comment on above: Room air 05-25-2016 08:44-0400 Weight 56.02 kg Iman Nazario [facility] Work Phone: 02-11-2016 06:55-0400 BMI (Body Mass Index) 24.22 kg/m2 DARCI Dias LPN [facility] Work Phone: 02-11-2016 06:55-0400 Body Temperature 97.6 [degF] DARCI Dias LPN [facility] Work Phone: Comment on above: Method: Temporal 02-11-2016 06:55-0400 Body weight 56.25 kg DARCI Dias LPN [facility] Work Phone: 02-11-2016 06:55-0400 BP Diastolic 78 mm[Hg] DARCI Dias LPN [facility] Work Phone: Comment on above: Patient Position: Sitting; Cuff Location : Left Arm; Cuff Size: Standard 02-11-2016 06:55-0400 BP Systolic 120 mm[Hg] DARCI Dias LPN [facility] Work Phone: Comment on above: Patient Position: Sitting; Cuff Location : Left Arm; Cuff Size: Standard 02-11-2016 06:55-0400 BSA (Body Surface Area) 1.52 m2 DARCI Dias LPN [facility] Work Phone: 02-11-2016 06:55-0400 Height 152.4 cm DARCI Dias LPN [facility] Work Phone: 02-11-2016 06:55-0400 Pulse (Heart Rate) 86 /min DARCI Dias LPN [facility] Work Phone: Comment on above: Pattern: Regular 02-11-2016 06:55-0400 Pulse Oximetry 98 % Imananastasia Nazario [facility] Work Phone: Comment on above: Room air 02-11-2016 06:55-0400 Respiratory Rate 18 /min DARCI Dias LPN [facility] Work Phone: Comment on above: Pattern: Unlabored 02-11-2016 06:55-0400 SaO2% (BldA) [Mass fraction] 98 % DARCI Dias LPN [facility]; [facility] Work Phone: Comment on above: Room air 02-11-2016 06:55-0400 Weight 56.25 kg Iman Nazario [facility] Work Phone: 12-28-2015 13:03-0400 BMI (Body Mass Index) 23.63 kg/m2 DARCI Dias LPN [facility] Internal Medicine Work Phone: 12-28-2015 13:03-0400 Body Temperature 97.6 [degF] DARCI Dias LPN [facility] Internal Medicine Work Phone: Comment on above: Method: Temporal 12-28-2015 13:03-0400 Body weight 54.89 kg DARCI Dias LPN [facility] Internal Medicine Work Phone: 12-28-2015 13:03-0400 BP Diastolic 90 mm[Hg] DARCI Dias LPN [facility] Internal Medicine Work Phone: Comment on above: Patient Position: Sitting; Cuff Location : Left Arm; Cuff Size: Standard 12-28-2015 13:03-0400 BP Systolic 140 mm[Hg] DARCI Dias LPN [facility] Internal Medicine Work Phone: Comment on above: Patient Position: Sitting; Cuff Location : Left Arm; Cuff Size: Standard 12-28-2015 13:03-0400 BSA (Body Surface Area) 1.51 m2 DARCI Dias LPN [facility] Work Phone: 12-28-2015 13:03-0400 Height 152.4 cm DARCI Dias LPN [facility] Internal Medicine Work Phone: 12-28-2015 13:03-0400 Pulse (Heart Rate) 90 /min DARCI Dias LPN [facility] Work Phone: Comment on above: Pattern: Regular 12-28-2015 13:03-0400 Pulse Oximetry 98 % Iman Nazario [facility] Internal Medicine Work Phone: Comment on above: Room air 12-28-2015 13:03-0400 Respiratory Rate 18 /min DARCI Dias LPN [facility] Internal Medicine Work Phone: Comment on above: Pattern: Unlabored 12-28-2015 13:03-0400 SaO2% (BldA) [Mass fraction] 98 % DARCI Dias LPN [facility]; [facility] Work Phone: Comment on above: Room air 12-28-2015 13:03-0400 Weight 54.89 kg Iman Nazario [facility] Internal Medicine Work Phone: 08-06-2015 09:05-0500 BMI (Body Mass Index) 23.63 kg/m2 DARCI Dias LPN [facility] Internal Medicine Work Phone: 08-06-2015 09:05-0500 Body Temperature 97 [degF] DARCI Dias STUDENT WORKER [facility] Work Phone: Comment on above: Method: Temporal 08-06-2015 09:05-0500 Body weight 54.89 kg DARCI Dias LPN [facility] Internal Medicine Work Phone: 08-06-2015 09:05-0500 BP Diastolic 74 mm[Hg] DARCI Dias LPN [facility] Internal Medicine Work Phone: Comment on above: Patient Position: Sitting; Cuff Location : Left Arm; Cuff Size: Standard 08-06-2015 09:05-0500 BP Systolic 126 mm[Hg] DARCI Dias LPN [facility] Internal Medicine Work Phone: Comment on above: Patient Position: Sitting; Cuff Location : Left Arm; Cuff Size: Standard 08-06-2015 09:05-0500 BSA (Body Surface Area) 1.51 m2 DARCI Dias LPN [facility] Internal Medicine Work Phone: 08-06-2015 09:05-0500 Height 152.4 cm DARCI Dias STUDENT WORKER [facility] Internal Medicine Work Phone: 08-06-2015 09:05-0500 Pulse (Heart Rate) 86 /min DARCI Dias STUDENT WORKER [facility] Internal Medicine Work Phone: Comment on above: Pattern: Regular 08-06-2015 09:05-0500 Pulse Oximetry 99 % Iman Nazario [facility] Internal Medicine Work Phone: Comment on above: Room air 08-06-2015 09:05-0500 Respiratory Rate 18 /min DARCI Dias LPN [facility] Internal Medicine Work Phone: Comment on above: Pattern: Unlabored 08-06-2015 09:05-0500 SaO2% (BldA) [Mass fraction] 99 % DARCI Dias TRACY [facility]; [facility] Work Phone: Comment on above: Room air 08-06-2015 09:05-0500 Weight 54.89 kg Iman Nazario [facility] Work Phone: 02-26-2015 14:10-0400 BMI (Body Mass Index) 23.53 kg/m2 Lita Slarb STUDENT WORKER [facility] [employer] Internal Medicine Work Phone: 02-26-2015 14:10-0400 Body Temperature 97.8 [degF] Lita Reddyrb STUDENT WORKER [facility] Work Phone: 02-26-2015 14:10-0400 Body weight 54.66 kg Lita Blakelyrb STUDENT WORKER [facility] Work Phone: 02-26-2015 14:10-0400 BP Diastolic 82 mm[Hg] Lita Reddyrb STUDENT WORKER [facility] Work Phone: Comment on above: Patient Position: Sitting; Cuff Location : Left Arm; Cuff Size: Standard 02-26-2015 14:10-0400 BP Systolic 124 mm[Hg] Lita Reddyrb STUDENT WORKER [facility] Work Phone: Comment on above: Patient Position: Sitting; Cuff Location : Left Arm; Cuff Size: Standard 02-26-2015 14:10-0400 BSA (Body Surface Area) 1.51 m2 Lita Slaneli STUDENT WORKER [facility] Work Phone: 02-26-2015 14:10-0400 Height 152.4 cm Lita Slarb STUDENT WORKER [facility] Work Phone: 02-26-2015 14:10-0400 Pulse (Heart Rate) 80 /min Lita Slarb STUDENT WORKER [employer] [employer] Internal Medicine Work Phone: Comment on above: Pattern: Regular 02-26-2015 14:10-0400 Pulse Oximetry 98 % Iman Nazario [facility] Work Phone: Comment on above: Room air 02-26-2015 14:10-0400 Respiratory Rate 16 /min Lita Slarb STUDENT WORKER [facility] Work Phone: Comment on above: Pattern: Unlabored 02-26-2015 14:10-0400 SaO2% (BldA) [Mass fraction] 98 % Lita Villanueva [facility]; [facility] Work Phone: Comment on above: Room air 02-26-2015 14:10-0400 Weight 54.66 kg Iman Nazario [facility] Internal Medicine Work Phone: 02-19-2015 07:25-0400 BMI (Body Mass Index) 23.63 kg/m2 DARCI Dias [facility] Internal Medicine Work Phone: 02-19-2015 07:25-0400 Body Temperature 97.6 [degF] DARCI Dias [facility] Work Phone: Comment on above: Method: Temporal 02-19-2015 07:25-0400 Body weight 54.89 kg DARCI Dias [facility] Work Phone: 02-19-2015 07:25-0400 BP Diastolic 78 mm[Hg] DARCI Dias [facility] Work Phone: Comment on above: Patient Position: Sitting; Cuff Location : Left Arm; Cuff Size: Standard 02-19-2015 07:25-0400 BP Systolic 120 mm[Hg] DARCI Dias [facility] Work Phone: Comment on above: Patient Position: Sitting; Cuff Location : Left Arm; Cuff Size: Standard 02-19-2015 07:25-0400 BSA (Body Surface Area) 1.51 m2 DARCI Dias [facility] Work Phone: 02-19-2015 07:25-0400 Height 152.4 cm DARCI Dias [facility] Work Phone: 02-19-2015 07:25-0400 Pulse (Heart Rate) 98 /min DARCI Dias [facility] Internal Medicine Work Phone: Comment on above: Pattern: Regular 02-19-2015 07:25-0400 Pulse Oximetry 98 % Iman Nazario [facility] Internal Medicine Work Phone: Comment on above: Room air 02-19-2015 07:25-0400 Respiratory Rate 18 /min DARCI Dias STUDENT WORKER [facility] Work Phone: Comment on above: Pattern: Unlabored 02-19-2015 07:25-0400 SaO2% (BldA) [Mass fraction] 98 % DARCI iDas STUDENT WORKER [facility]; [facility] Work Phone: Comment on above: Room air 02-19-2015 07:25-0400 Weight 54.89 kg Iman Nazario [facility] Work Phone: 02-09-2015 13:01-0400 BMI (Body Mass Index) 23.63 kg/m2 Lita Slarb STUDENT WORKER [facility] Work Phone: 02-09-2015 13:01-0400 Body Temperature 97.6 [degF] Lita Slarb STUDENT WORKER [facility] Work Phone: 02-09-2015 13:01-0400 Body weight 54.89 kg Lita Slarb STUDENT WORKER [facility] Work Phone: 02-09-2015 13:01-0400 BP Diastolic 80 mm[Hg] Lita Slarb STUDENT WORKER [facility] Work Phone: Comment on above: Patient Position: Sitting; Cuff Location : Left Arm; Cuff Size: Standard 02-09-2015 13:01-0400 BP Systolic 160 mm[Hg] Lita Slarb STUDENT WORKER [facility] Work Phone: Comment on above: Patient Position: Sitting; Cuff Location : Left Arm; Cuff Size: Standard 02-09-2015 13:01-0400 BSA (Body Surface Area) 1.51 m2 Lita Slarb STUDENT WORKER [facility] Work Phone: 02-09-2015 13:01-0400 Height 152.4 cm Lita Slarb STUDENT WORKER [facility] Work Phone: 02-09-2015 13:01-0400 Pulse (Heart Rate) 97 /min Lita Slarb STUDENT WORKER [facility] Medicine Work Phone: Comment on above: Pattern: Regular 02-09-2015 13:01-0400 Pulse Oximetry 97 % Iman Nazario [facility] Internal Medicine Work Phone: Comment on above: Room air 02-09-2015 13:01-0400 Respiratory Rate 18 /min Lita Villanueva STUDENT WORKER [facility] Work Phone: Comment on above: Pattern: Unlabored 02-09-2015 13:01-0400 SaO2% (BldA) [Mass fraction] 97 % Lita Villanueva [facility] Internal Medicine; [facility] Work Phone: Comment on above: Room air 02-09-2015 13:01-0400 Weight 54.89 kg Iman Nazario [facility] Internal Medicine Work Phone: 01-08-2015 07:42-0400 BMI (Body Mass Index) 23.63 kg/m2 DARCI Dias [facility] Internal Medicine Work Phone: 01-08-2015 07:42-0400 Body Temperature 97.6 [degF] DARCI Dias [facility] Internal Medicine Work Phone: Comment on above: Method: Temporal 01-08-2015 07:42-0400 Body weight 54.89 kg DARCI Dias [facility] Internal Medicine Work Phone: 01-08-2015 07:42-0400 BP Diastolic 78 mm[Hg] DARCI Dias [facility] Internal Medicine Work Phone: Comment on above: Patient Position: Sitting; Cuff Location : Left Arm; Cuff Size: Standard 01-08-2015 07:42-0400 BP Systolic 120 mm[Hg] DARCI Dias [facility] Internal Medicine Work Phone: Comment on above: Patient Position: Sitting; Cuff Location : Left Arm; Cuff Size: Standard 01-08-2015 07:42-0400 BSA (Body Surface Area) 1.51 m2 DARCI Dias [facility] Internal Medicine Work Phone: 01-08-2015 07:42-0400 Height 152.4 cm DARCI Dias [facility] Internal Medicine Work Phone: 01-08-2015 07:42-0400 Pulse (Heart Rate) 64 /min DARCI Dias TRACY [facility] Work Phone: Comment on above: Pattern: Regular 01-08-2015 07:42-0400 Pulse Oximetry 98 % Iman Nazario [facility] Work Phone: Comment on above: Room air 01-08-2015 07:42-0400 Respiratory Rate 18 /min DARCI Dias TRACY [facility] Work Phone: Comment on above: Pattern: Unlabored 01-08-2015 07:42-0400 SaO2% (BldA) [Mass fraction] 98 % DARCI Dias TRACY [facility]; [facility] Work Phone: Comment on above: Room air 01-08-2015 07:42-0400 Weight 54.89 kg Iman Nazario [facility] Work Phone: 07-10-2014 08:05-0400 BMI (Body Mass Index) 24.5 kg/m2 Funmi Lezama RN [facility] Work Phone: 07-10-2014 08:05-0400 Body weight 56.9 kg Funmi Lezama RN [facility] Work Phone: 07-10-2014 08:05-0400 BP Diastolic 80 mm[Hg] Funmi Lezama RN [facility] Work Phone: Comment on above: Patient Position: Sitting; Cuff Location : Left Arm; Cuff Size: Large 07-10-2014 08:05-0400 BP Systolic 122 mm[Hg] Funmi Lezama RN [facility] Work Phone: Comment on above: Patient Position: Sitting; Cuff Location : Left Arm; Cuff Size: Large 07-10-2014 08:05-0400 BSA (Body Surface Area) 1.53 m2 Funmi Lezama RN [facility] Work Phone: 07-10-2014 08:05-0400 Height 152.4 cm Funmi Lezama RN [facility] Work Phone: 07-10-2014 08:05-0400 Pulse (Heart Rate) 81 /min Funmi Lezama RN [facility] Work Phone: Comment on above: Pattern: Regular 07-10-2014 08:05-0400 Pulse Oximetry 98 % Iman Mansi [facility] Work Phone: Comment on above: Room air 07-10-2014 08:05-0400 Respiratory Rate 18 /min Funmi Lezama RN [facility] Work Phone: Comment on above: Pattern: Unlabored 07-10-2014 08:05-0400 SaO2% (BldA) [Mass fraction] 98 % Funmi Lezama RN [facility]; [facility] Work Phone: Comment on above: Room air 07-10-2014 08:05-0400 Weight 56.9 kg Iman Ballardon [facility] Work Phone: 06-04-2014 10:15-0400 BMI (Body Mass Index) 24.81 kg/m2 Michelle Dean RN [facility] Internal Medicine Work Phone: 06-04-2014 10:15-0400 Body Temperature 98 [degF] Michelle Dean RN [facility] Work Phone: Comment on above: Method: Temporal 06-04-2014 10:15-0400 Body weight 57.64 kg Michelle Dean RN [facility] Work Phone: 06-04-2014 10:15-0400 BP Diastolic 84 mm[Hg] Michelle Dean RN [facility] Work Phone: Comment on above: Patient Position: Sitting; Cuff Location : Left Arm; Cuff Size: Standard 06-04-2014 10:15-0400 BP Systolic 150 mm[Hg] Michelle Dean RN [facility] Work Phone: Comment on above: Patient Position: Sitting; Cuff Location : Left Arm; Cuff Size: Standard 06-04-2014 10:15-0400 BSA (Body Surface Area) 1.54 m2 Michelle Dean RN [facility] Work Phone: 06-04-2014 10:15-0400 Height 152.4 cm Michelle Dean RN [facility] Work Phone: 06-04-2014 10:15-0400 Pulse (Heart Rate) 84 /min Michelle Dean RN [facility] Work Phone: Comment on above: Pattern: Regular 06-04-2014 10:15-0400 Pulse Oximetry 98 % Iman Nazario [facility] Work Phone: Comment on above: Room air 06-04-2014 10:15-0400 Respiratory Rate 16 /min Michelle Dean RN [facility] Work Phone: Comment on above: Pattern: Unlabored 06-04-2014 10:15-0400 SaO2% (BldA) [Mass fraction] 98 % Michelle Dean RN [facility]; [facility] Work Phone: Comment on above: Room air 06-04-2014 10:15-0400 Weight 57.64 kg Iman Nazario [facility] Work Phone: 04-20-2014 09:53-0400 BMI (Body Mass Index) 24.81 kg/m2 Veronica Brenner LPN [facility] Work Phone: 04-20-2014 09:53-0400 Body Temperature 97.8 [degF] Veronica Jordin MOLINA [facility] Work Phone: Comment on above: Method: Oral 04-20-2014 09:53-0400 Body weight 57.64 kg Veronica Jordin TRACY [facility] Work Phone: 04-20-2014 09:53-0400 BP Diastolic 70 mm[Hg] Veronica Jordin MOLINA [facility] Work Phone: Comment on above: Patient Position: Sitting; Cuff Location : Left Arm; Cuff Size: Standard 04-20-2014 09:53-0400 BP Systolic 140 mm[Hg] Veronica Jordin MOLINA [facility] Work Phone: Comment on above: Patient Position: Sitting; Cuff Location : Left Arm; Cuff Size: Standard 04-20-2014 09:53-0400 BSA (Body Surface Area) 1.54 m2 Veronica Brenner LPN [facility] Work Phone: 04-20-2014 09:53-0400 Height 152.4 cm Veronica Brenner LPN [facility] Work Phone: 04-20-2014 09:53-0400 Pulse (Heart Rate) 94 /min Veronica Brenner LPN [facility] Work Phone: Comment on above: Pattern: Regular 04-20-2014 09:53-0400 Pulse Oximetry 98 % Iman Nazario [facility] Internal Medicine Work Phone: Comment on above: Room air 04-20-2014 09:53-0400 SaO2% (BldA) [Mass fraction] 98 % Veronica Brenner LPN [facility]; [facility] Work Phone: Comment on above: Room air 04-20-2014 09:53-0400 Weight 57.64 kg Iman Nazario [facility] Internal Medicine Work Phone: 01-08-2014 08:17-0400 BMI (Body Mass Index) 25.78 kg/m2 DARCI Dias TRACY [facility] Internal Medicine Work Phone: 01-08-2014 08:17-0400 Body Temperature 97.9 [degF] DARCI Dias LPN [facility] Internal Medicine Work Phone: Comment on above: Method: Oral 01-08-2014 08:17-0400 Body weight 59.88 kg DARCI Dias LPN [facility] Internal Medicine Work Phone: 01-08-2014 08:17-0400 BP Diastolic 80 mm[Hg] DARCI Dias STUDENT WORKER [facility] Internal Medicine Work Phone: Comment on above: Patient Position: Sitting; Cuff Location : Left Arm; Cuff Size: Standard 01-08-2014 08:17-0400 BP Systolic 120 mm[Hg] DARCI Dias STUDENT WORKER [facility] Internal Medicine Work Phone: Comment on above: Patient Position: Sitting; Cuff Location : Left Arm; Cuff Size: Standard 01-08-2014 08:17-0400 BSA (Body Surface Area) 1.56 m2 DARCI Dias TRACY [facility] Internal Medicine Work Phone: 01-08-2014 08:17-0400 Height 152.4 cm DARCI Dias STUDENT WORKER [facility] Internal Medicine Work Phone: 01-08-2014 08:17-0400 Pulse (Heart Rate) 68 /min DARCI Dias TRACY [facility] Work Phone: Comment on above: Pattern: Regular 01-08-2014 08:17-0400 Respiratory Rate 20 /min DARCI Dias TRACY [facility] Work Phone: Comment on above: Pattern: Unlabored 01-08-2014 08:17-0400 Weight 59.88 kg Iman Nazario [facility] Work Phone: 07-08-2013 08:17-0400 BMI (Body Mass Index) 25.58 kg/m2 Maddy Hernandez MD Work Phone: [facility] Work Phone: 07-08-2013 08:17-0400 Body Temperature 96.8 [degF] Maddy Hernandez MD Work Phone: [facility] Work Phone: Comment on above: Method: Oral 07-08-2013 08:17-0400 Body weight 59.42 kg Maddy Hernandez MD Work Phone: [facility] Work Phone: 07-08-2013 08:17-0400 BP Diastolic 74 mm[Hg] Maddy Hernandez MD Work Phone: [facility] Work Phone: Comment on above: Patient Position: Sitting 07-08-2013 08:17-0400 BP Systolic 132 mm[Hg] Maddy Hernandez MD Work Phone: [facility] Work Phone: Comment on above: Patient Position: Sitting 07-08-2013 08:17-0400 BSA (Body Surface Area) 1.56 m2 Maddy Hernandez MD Work Phone: [facility] Work Phone: 07-08-2013 08:17-0400 Height 152.4 cm Maddy Hernandez MD Work Phone: [facility] Work Phone: 07-08-2013 08:17-0400 Pulse (Heart Rate) 78 /min Maddy Hernandez MD Work Phone: [facility] Work Phone: Comment on above: Pattern: Regular 07-08-2013 08:17-0400 Pulse Oximetry 98 % Iman Nazario [facility] Internal Medicine Work Phone: Comment on above: Room air 07-08-2013 08:17-0400 Respiratory Rate 16 /min Maddy Hernandez MD Work Phone: [facility] Work Phone: 07-08-2013 08:17-0400 SaO2% (BldA) [Mass fraction] 98 % Maddy Hernandez MD Work Phone: [facility]; [facility] Work Phone: Comment on above: Room air 07-08-2013 08:17-0400 Weight 59.42 kg Iman Ballardon [facility] Internal Medicine Work Phone: 01-07-2013 08:04-0400 BMI (Body Mass Index) 25.1 kg/m2 Michelle Dean RN [facility] Internal Medicine Work Phone: 01-07-2013 08:04-0400 Body Temperature 96.6 [degF] Michelle Dean RN [facility] Internal Medicine Work Phone: Comment on above: Method: Temporal 01-07-2013 08:04-0400 Body weight 58.29 kg Michelle Dean RN [facility] Work Phone: 01-07-2013 08:04-0400 BP Diastolic 76 mm[Hg] Michelle Dean RN [facility] Work Phone: Comment on above: Patient Position: Sitting; Cuff Location : Left Arm; Cuff Size: Standard 01-07-2013 08:04-0400 BP Systolic 130 mm[Hg] Michelle Dean RN [facility] Work Phone: Comment on above: Patient Position: Sitting; Cuff Location : Left Arm; Cuff Size: Standard 01-07-2013 08:04-0400 BSA (Body Surface Area) 1.55 m2 Michelle Dean RN [facility] Work Phone: 01-07-2013 08:04-0400 Height 152.4 cm Michelle Dean RN [facility] Work Phone: 01-07-2013 08:04-0400 Pulse (Heart Rate) 88 /min Michelle Dean RN [facility] Work Phone: Comment on above: Pattern: Regular 01-07-2013 08:04-0400 Pulse Oximetry 98 % Iman Mansi [facility] Work Phone: Comment on above: Room air 01-07-2013 08:04-0400 Respiratory Rate 16 /min Michelle Dean RN [facility] Work Phone: Comment on above: Pattern: Unlabored 01-07-2013 08:04-0400 SaO2% (BldA) [Mass fraction] 98 % Michelle Dean RN [facility]; [facility] Work Phone: Comment on above: Room air 01-07-2013 08:04-0400 Weight 58.29 kg Iman Mansi [facility] Work Phone: 11-25-2012 13:17-0500 BMI (Body Mass Index) 24.89 kg/m2 Veronica Jordin MOLINA [facility] Work Phone: 11-25-2012 13:17-0500 Body weight 57.81 kg Veronica Jordin MOLINA [facility] Work Phone: 11-25-2012 13:17-0500 BP Diastolic 82 mm[Hg] Veronica Jordin MOLINA [facility] Work Phone: Comment on above: Patient Position: Sitting; Cuff Location : Left Arm; Cuff Size: Standard 11-25-2012 13:17-0500 BP Systolic 134 mm[Hg] Veronica Jordin MOLINA [facility] Work Phone: Comment on above: Patient Position: Sitting; Cuff Location : Left Arm; Cuff Size: Standard 11-25-2012 13:17-0500 BSA (Body Surface Area) 1.54 m2 Veronica Brenner LPN [facility] Work Phone: 11-25-2012 13:17-0500 Height 152.4 cm Veronica Brenner LPN [facility] Work Phone: 11-25-2012 13:17-0500 Pulse (Heart Rate) 70 /min Veronica Brenner LPN [facility] Work Phone: Comment on above: Pattern: Regular 11-25-2012 13:17-0500 Respiratory Rate 18 /min Veronica Brenner LPN [facility] Work Phone: Comment on above: Pattern: Unlabored 11-25-2012 13:17-0500 Weight 57.81 kg Iman Nazario [facility] Internal Medicine Work Phone: 10-09-2012 09:18-0500 BMI (Body Mass Index) 24.89 kg/m2 Veronica Brenner LPN [facility] Work Phone: 10-09-2012 09:18-0500 Body Temperature 98.2 [degF] Veronica Brenner LPN [facility] Work Phone: Comment on above: Method: Oral 10-09-2012 09:18-0500 Body weight 57.81 kg Veronica Brenner LPN [facility] Work Phone: 10-09-2012 09:18-0500 BP Diastolic 78 mm[Hg] Veronica Brenner LPN [facility] Work Phone: Comment on above: Patient Position: Sitting; Cuff Location : Left Arm; Cuff Size: Standard 10-09-2012 09:18-0500 BP Systolic 122 mm[Hg] Veronica Brenner LPN [facility] Work Phone: Comment on above: Patient Position: Sitting; Cuff Location : Left Arm; Cuff Size: Standard 10-09-2012 09:18-0500 BSA (Body Surface Area) 1.54 m2 Veronica Brenner LPN [facility] Work Phone: 10-09-2012 09:18-0500 Height 152.4 cm Veronica Brenner LPN [facility] Work Phone: 10-09-2012 09:18-0500 Pulse (Heart Rate) 72 /min Veronica Brenner LPN [facility] Work Phone: Comment on above: Pattern: Regular 10-09-2012 09:18-0500 Respiratory Rate 16 /min Veronica Brenner LPN [facility] Work Phone: 10-09-2012 09:18-0500 Weight 57.81 kg Iman Nazario [facility] Work Phone: 07-12-2012 08:17-0400 BMI (Body Mass Index) 23.24 kg/m2 Veronica Brenner LPN [facility] Work Phone: 07-12-2012 08:17-0400 Body Temperature 98.6 [degF] Veronica Brenner LPN [facility] Work Phone: Comment on above: Method: Oral 07-12-2012 08:17-0400 Body weight 53.98 kg Veronica Brenner LPN [facility] Work Phone: 07-12-2012 08:17-0400 BP Diastolic 80 mm[Hg] Veronica Brenner LPN [facility] Work Phone: Comment on above: Patient Position: Sitting; Cuff Location : Left Arm; Cuff Size: Standard 07-12-2012 08:17-0400 BP Systolic 124 mm[Hg] Veronica Brenner LPN [facility] Work Phone: Comment on above: Patient Position: Sitting; Cuff Location : Left Arm; Cuff Size: Standard 07-12-2012 08:17-0400 BSA (Body Surface Area) 1.5 m2 Veronica Brenner LPN [facility] Work Phone: 07-12-2012 08:17-0400 Height 152.4 cm Veronica Brenner LPN [facility] Work Phone: 07-12-2012 08:17-0400 Pulse (Heart Rate) 88 /min Veronica Brenner LPN [facility] Work Phone: Comment on above: Pattern: Regular 07-12-2012 08:17-0400 Pulse Oximetry 97 % Iman Nazario [facility] Work Phone: Comment on above: Room air 07-12-2012 08:17-0400 Respiratory Rate 16 /min Veronica Brenner LPN [facility] Work Phone: Comment on above: Pattern: Unlabored 07-12-2012 08:17-0400 SaO2% (BldA) [Mass fraction] 97 % Veronica Brenner STUDENT WORKER [facility]; [facility] Work Phone: Comment on above: Room air 07-12-2012 08:17-0400 Weight 53.98 kg Iman Nazario [facility] Internal Medicine Work Phone: 07-09-2012 08:08-0400 BMI (Body Mass Index) 23.24 kg/m2 Veronica Brenner STUDENT WORKER [facility] Work Phone: 07-09-2012 08:08-0400 Body Temperature 98.2 [degF] Veronica Brenner LPN [facility] Work Phone: Comment on above: Method: Oral 07-09-2012 08:08-0400 Body weight 53.98 kg Veronica Brenner LPN [facility] Work Phone: 07-09-2012 08:08-0400 BP Diastolic 92 mm[Hg] Veronica Brenner STUDENT WORKER [facility] Work Phone: Comment on above: Patient Position: Sitting; Cuff Location : Left Arm; Cuff Size: Standard 07-09-2012 08:08-0400 BP Systolic 146 mm[Hg] Veronica Brenner LPN [facility] Work Phone: Comment on above: Patient Position: Sitting; Cuff Location : Left Arm; Cuff Size: Standard 07-09-2012 08:08-0400 BSA (Body Surface Area) 1.5 m2 Veronica Brenner STUDENT WORKER [facility] Work Phone: 07-09-2012 08:08-0400 Height 152.4 cm Veronica Brenner TRACY [facility] Work Phone: 07-09-2012 08:08-0400 Pulse (Heart Rate) 92 /min Veronica Brenner LPN [facility] Work Phone: Comment on above: Pattern: Regular 07-09-2012 08:08-0400 Pulse Oximetry 99 % Iman Nazario [facility] Internal Medicine Work Phone: Comment on above: Room air 07-09-2012 08:08-0400 Respiratory Rate 18 /min Veronica Brenner LPN [facility] Work Phone: Comment on above: Pattern: Unlabored 07-09-2012 08:08-0400 SaO2% (BldA) [Mass fraction] 99 % Veronica Brenner LPN [facility]; [facility] Work Phone: Comment on above: Room air 07-09-2012 08:08-0400 Weight 53.98 kg Iman Nazario [facility] Internal Medicine Work Phone: 02-09-2011 13:42-0400 BMI (Body Mass Index) 23.24 kg/m2 DARCI Dias STUDENT WORKER [facility] Internal Medicine Work Phone: 02-09-2011 13:42-0400 Body Temperature 97.9 [degF] DARCI Dias LPN [facility] Internal Medicine Work Phone: Comment on above: Method: Oral 02-09-2011 13:42-0400 Body weight 53.98 kg DARCI Dias STUDENT WORKER [facility] Internal Medicine Work Phone: 02-09-2011 13:42-0400 BP Diastolic 78 mm[Hg] DARCI Dias LPN [facility] Internal Medicine Work Phone: Comment on above: Patient Position: Sitting; Cuff Location : Left Arm; Cuff Size: Standard 02-09-2011 13:42-0400 BP Systolic 118 mm[Hg] DARCI Dias LPN [facility] Internal Medicine Work Phone: Comment on above: Patient Position: Sitting; Cuff Location : Left Arm; Cuff Size: Standard 02-09-2011 13:42-0400 BSA (Body Surface Area) 1.5 m2 DARCI Dias STUDENT WORKER [facility] Internal Medicine Work Phone: 02-09-2011 13:42-0400 Height 152.4 cm DARCI Dias LPN [facility] Internal Medicine Work Phone: 02-09-2011 13:42-0400 Pulse (Heart Rate) 76 /min DARCI Dias LPN [facility] Internal Medicine Work Phone: Comment on above: Pattern: Regular 02-09-2011 13:42-0400 Respiratory Rate 18 /min DARCI Dias LPN [facility] Internal Medicine Work Phone: Comment on above: Pattern: Unlabored 02-09-2011 13:42-0400 Weight 53.98 kg Iman Nazario [facility] Internal Medicine Work Phone: 07-16-2008 08:17-0400 Body Temperature 98.1 [degF] [facility] Internal Medicine Work Phone: Comment on above: Method: Oral 07-16-2008 08:17-0400 Body weight 53.67 kg [facility] Internal Medicine Work Phone: 07-16-2008 08:17-0400 BP Diastolic 66 mm[Hg] [facility] Internal Medicine Work Phone: Comment on above: Patient Position: Sitting; Cuff Location : Left Arm; Cuff Size: Standard 07-16-2008 08:17-0400 BP Systolic 102 mm[Hg] Zuleyka Rust Internal Medicine Work Phone: Comment on above: Patient Position: Sitting; Cuff Location : Left Arm; Cuff Size: Standard 07-16-2008 08:17-0400 Head Circumference 0 cm Iman Nazario [facility] Internal Medicine Work Phone: 07-16-2008 08:17-0400 Head Occipital-frontal circumference 0 cm Zuleyka Rust Internal Medicine; [facility] Medicine Work Phone: 07-16-2008 08:17-0400 Height 0 cm Zuleyka Rust [facility] Medicine Work Phone: 07-16-2008 08:17-0400 Pulse (Heart Rate) 75 /min [facility] Internal Medicine Work Phone: Comment on above: Pattern: Regular 07-16-2008 08:17-0400 Pulse Oximetry 99 % Iman Nazario [facility] Internal Medicine Work Phone: Comment on above: Room air 07-16-2008 08:17-0400 Respiratory Rate 20 /min Zuleyka Harris [facility] Internal Medicine Work Phone: Comment on above: Pattern: Unlabored 07-16-2008 08:17-0400 SaO2% (BldA) [Mass fraction] 99 % Zuleyka Harris [facility]; [facility] Work Phone: Comment on above: Room air 07-16-2008 08:17-0400 Weight 53.67 kg Iman Nazario [facility] Internal Medicine Work Phone: 11-16-2006 08:37-0500 BMI (Body Mass Index) 22.07 kg/m2 DARCI Dias STUDENT WORKER [facility] Internal Medicine Work Phone: 11-16-2006 08:37-0500 Body Temperature 97.6 [degF] DARCI Dias STUDENT WORKER [facility] Work Phone: Comment on above: Method: Oral 11-16-2006 08:37-0500 Body weight 51.26 kg DARCI Dias STUDENT WORKER [facility] Work Phone: 11-16-2006 08:37-0500 BP Diastolic 76 mm[Hg] DARCI Dias [facility] Work Phone: Comment on above: Patient Position: Sitting; Cuff Location : Left Arm; Cuff Size: Standard 11-16-2006 08:37-0500 BP Systolic 110 mm[Hg] DARCI Dias STUDENT WORKER [facility] Internal Medicine Work Phone: Comment on above: Patient Position: Sitting; Cuff Location : Left Arm; Cuff Size: Standard 11-16-2006 08:37-0500 BSA (Body Surface Area) 1.46 m2 DARCI Dias STUDENT WORKER [facility] Work Phone: 11-16-2006 08:37-0500 Head Circumference 0 cm Iman Nazario [facility] Internal Medicine Work Phone: 11-16-2006 08:37-0500 Head Occipital-frontal circumference 0 cm DARCI Dias LPN [facility]; [facility] Work Phone: 11-16-2006 08:37-0500 Height 152.4 cm DARCI Dias LPN [facility] Work Phone: 11-16-2006 08:37-0500 Pulse (Heart Rate) 68 /min DARCI Dias LPN [facility] Work Phone: Comment on above: Pattern: Regular 11-16-2006 08:37-0500 Respiratory Rate 20 /min DARCI Dias LPN [facility] Work Phone: Comment on above: Pattern: Unlabored 11-16-2006 08:37-0500 Weight 51.26 kg Iman Nazario [facility] Work Phone: Encounters Encounter Date Encounter Type Care Provider Facility Start: 08-05-2025 ambulatory Iman Mansi Facilit y:[facility] Start: 08-04-2025 End: 08-04-2025 ambulatory [place] Mans[place] [place]: 02-12-2025 End: 02-12-2025 ambulatory Iman Mansi Facility:[facility] Start: 11-13-2024 ambulatory Iman Mansi [place] Start: 11-13-2024 End: 11-13-2024 ambulatory Iman Mansi Facility:[facility] Start: 11-06-2024 End: 11-06-2024 ambulatory Iman Mansi [place] [place] Start: 10-20-2024 End: 10-20-2024 Subsequent hospital visit by physician [address] Comment on above: Essential (primary) hypertension Start: 10-20-2024 End: 10[facility]20[facility]: 09-11-2024 Encounter for genera l adult medical examination without abnormal findings Cory Mckeon [facility] Start: 09-10-2024 End: 09-10-2024 ambulatory Iman Mansi Facility:[facility] Start: 08-18-2024 End: 08-18-2024 ambulatory Cory Cajaylen Facility:[facility] Start: 08-17-2024 End: 08-17-2024 ambulatory Cory Mckeon Facility:[facility] Start: 08-15-2024 End: 08-15-2024 ambulatory Iman Nazario Facility:[facility] Start: 07-03-2024 End: 07-03-2024 Telephone encounter Abhay Bowden MD Work Phone: Hematology/Oncology Start: 01-29-2024 End: 01-29-2024 ambulatory [facility] Work Phone: Start: 01-29-2024 End: 01-29-2024 Discharged Recurring [facility]-Physical Therapy Work Phone: Start: 08-09-2023 End: 08-09-[address] Iman Nazario Work Phone: [facility] Work Phone: Start: 08-09-2023 End: 08-09-[address] Iman Nazario Work Phone: [facility]-Outpatient Bone Densitometry Work Phone: Start: 07-30-2023 End: 07-30-[address] Iman Nazario Work Phone: [facility] Work Phone: Start: 07-30-2023 End: 07-30-[address] Iman Nazario Work Phone: [facility] Work Phone: Start: 07-12-2023 Iman millard DO Work Phone: [facility] Start: 07-12-2023 End: 07-12-2023 Office outpatient visit 25 minutes Iman Nazario DO Work Phone: [facility] Start: 07-12-2023 End: 07-12-2023 Patient encounter procedure DARCI Dias LPN [facility]; [facility] Work Phone: Start: 07-11-2023 End: 07-11-[address] Iman Nazario Work Phone: [facility] Radiology Start: 07-11-2023 End: 07-11-2023 Iman Nazario DO Work Phone: [facility] Start: 05-02-2023 End: 05-02-[address] Iman Nazario Work Phone: [facility] Work Phone: Start: 05-02-2023 End: 05-02-[address] Iman Nazario Work Phone: [facility]-Physical Therapy Work Phone: Start: 03-28-2023 End: 03-28-2023 Iman Nazario DO Work Phone: [facility] Internal Medicine Start: 03-22-2023 End: 03-22-[address] Iman Nazario Work Phone: [facility] Work Phone: Start: 01-11-2023 ambulatory Iman Nazario DO [facility] Start: 01-11-2023 End: 01-11-2023 Office outpatient visit 25 minutes Iman Mansi DO Work Phone: [facility] Start: 08-24-2022 Iman Ballardo n DO Work Phone: [facility] Start: 08-22-2022 Iman Ballardo n DO Work Phone: [facility] Start: 08-14-2022 End: 08-14-[address] Iman Nazario Work Phone: [facility] Work Phone: Start: 08-14-2022 End: 08-14-[address] Iman Nazario Work Phone: [facility] Start: 08-14-2022 End: 08-14-2022 Office outpatient visit 25 minutes Iman Mansi DO Work Phone: [facility] Start: 08-03-[address] Triston Nazario Work Phone: [facility]-Cardiovascular Services Start: 07-28-2022 End: 07-28-[address] Iman Nazario Work Phone: [facility] Work Phone: Start: 07-28-2022 End: 07-28-[address] Iman Nazario Work Phone: [facility]-Outpatient Breast Imaging Start: 07-07-2022 End: 07-07-2022 Periodic preventive med est patient 65yrs& older Iman Nazario DO Work Phone: [facility] Start: 07-07-2022 End: 07-07-2022 Patient encounter procedure Melquiades Truong LPN [facility]; [facility] Work Phone: Start: 07-07-2022 Iman millard DO Work Phone: [facility] Start: 05-22-2022 End: 05-22-[address] Iman Nazario Work Phone: [facility] Start: 05-17-2022 End: 05-17-[address] Iman Nazario Work Phone: [facility] Work Phone: Start: 05-17-2022 End: 05-17-[address] Iman Nazario Work Phone: [facility] Start: 05-04-2022 End: 05-04-[address] Iman Nazario Work Phone: [facility] Start: 04-28-2022 End: 04-28-2022 Patient encounter procedure Lita Villanueva LPN [facility]; [facility] Work Phone: Start: 04-28-2022 End: 05-01-2022 Office outpatient visit 15 minutes Iman Mansi DO Work Phone: [facility] Start: 01-04-2022 End: 01-04-2022 Office outpatient visit 25 minutes Iman Mansi DO Work Phone: [facility] Start: 11-24-2021 End: 11-24-2021 Lab Order Iman Mansi DO Work Phone: [facility] Start: 11-24-2021 End: 11-24-2021 Iman Mansi DO Work Phone: [facility] Start: 07-01-2021 End: 07-01-2021 Office outpatient visit 15 minutes Iman Mansi DO Work Phone: [facility] Start: 06-20-2021 End: 06-20-2021 Lab Order Iman Mansi DO Work Phone: [facility] Start: 06-20-2021 End: 06-20-2021 Patient encounter status Iman Mansi DO Work Phone: [facility] Start: 06-20-2021 End: 06-20-2021 Iman Mansi DO Work Phone: [facility] Start: 06-14-2021 End: 06-15-2021 Office outpatient visit 5 minutes Iman Mansi DO Work Phone: [facility] Start: 04-01-2021 End: 04-01-2021 Annotation/Addendum Iman Mansi DO Work Phone: [facility] Start: 04-01-2021 End: 04-01-2021 Iman Mansi DO Work Phone: [facility] Start: 04-01-2021 End: 04-01-2021 Patient encounter procedure Jonelle Vines LPN [facility]; [facility] Work Phone: Comment on above: pap 5-15, colonscopy 6-15. mammo 6-15 all planned. Start: 04-01-2021 End: 04-01-2021 Periodic preventive med est patient 65yrs& older Iman Nazario DO Work Phone: [facility] Start: 04-01-2021 Review Iman Johnson n DO Work Phone: [facility] Start: 07-06-2020 End: 07-06-2020 Office outpatient visit 5 minutes Iman Nazario [facility] Start: 02-06-2020 End: 02-06-2020 Office outpatient visit 5 minutes Iman Nazario [facility] Start: 11-21-2019 End: 11-21-2019 Office outpatient visit 15 minutes Iman Nazario [facility] Start: 05-22-2019 End: 05-22-2019 Office outpatient visit 25 minutes Iman Nazario [facility] Start: 01-29-2019 End: 01-29-2019 Phone Encounter Iman [facility] Start: 01-29-2019 End: 01-29-2019 Iman Mansi DO Work Phone: [facility] Start: 05-28-2018 End: 05-28-2018 Office outpatient visit 15 minutes Iman Mansi [facility] Start: 04-12-2018 End: 04-12-2018 Patient encounter procedure Iman Nazario DO Work Phone: [facility] Start: 04-12-2018 End: 04-12-2018 Periodic preventive med est patient 40-64yrs Iman Sinclair [facility] Start: 04-05-2018 End: 04-05-2018 Office outpatient visit 25 minutes Iman Nazario [facility] Start: 10-11-2017 End: 10-11-2017 Office outpatient visit 15 minutes Iman Nazario [facility] Start: 09-19-2017 End: 09-19-2017 Office outpatient visit 25 minutes Iman Nazario [facility] Start: 12-28-2016 End: 12-28-2016 Office outpatient visit 5 minutes Iman Nazario [facility] Start: 12-28-2016 End: 12-28-2016 Office outpatient visit 25 minutes Iman Nazario [facility] Start: 11-16-2016 End: 11-16-2016 Lab Order Iman Nazario [facility] Start: 11-16-2016 End: 11-16-2016 Iman Nazario DO Work Phone: [facility] Start: 07-28-2016 End: 07-28-2016 Annotation/Addendum Iman Nazario [facility] Start: 07-28-2016 End: 07-28-2016 Iman Nazario DO Work Phone: [facility] Start: 06-05-2016 End: 06-05-2016 Annotation/Addendum Iman Nazario [facility] Start: 06-05-2016 End: 06-05-2016 Iman Nazario DO Work Phone: [facility] Start: 06-02-2016 End: 06-02-2016 Lab Order Iman Nazario [facility] Start: 06-02-2016 End: 06-02-2016 Iman Nazario DO Work Phone: [facility] Start: 05-25-2016 End: 05-25-2016 Office consultation new/estab patient 30 min Iman Mansi [facility] Start: 05-25-2016 End: 05-25-2016 Preprocedural examination done Iman Nazario DO Work Phone: [facility] Start: 02-11-2016 End: 02-11-2016 Office outpatient visit 15 minutes Iman Mansi [facility] Start: 01-07-2016 End: 01-07-2016 Refill Request Iman Nazario [facility] Start: 01-07-2016 End: 01-07-2016 Iman Nazario DO Work Phone: [facility] Start: 12-31-2015 End: 12-31-2015 Annotation/Addendum Iman Nazario [facility] Start: 12-31-2015 End: 12-31-2015 Iman Nazario DO Work Phone: [facility] Start: 12-28-2015 End: 12-28-2015 Office outpatient visit 15 minutes Iman Mansi [facility] Start: 08-06-2015 End: 08-06-2015 Office outpatient visit 10 minutes Iman Nazario [facility] Start: 08-06-2015 End: 08-06-2015 Patient encounter status Iman Nazario DO Work Phone: [facility] Start: 02-26-2015 End: 02-26-2015 Office outpatient visit 15 minutes Iman Nazario [facility] Start: 02-19-2015 End: 02-19-2015 Office outpatient new 10 minutes Iman Nazario [facility] Internal Medicine Start: 02-19-2015 End: 02-19-2015 Patient encounter procedure Iman Nazario DO Work Phone: [facility] Start: 02-09-2015 End: 02-09-2015 Office outpatient visit 15 minutes Iman Nazario [facility] Start: 01-08-2015 End: 01-08-2015 Office outpatient visit 40 minutes Iman Nazario [facility] Start: 01-08-2015 End: 01-08-2015 Patient encounter procedure Iman Nazario DO Work Phone: [facility] Start: 07-10-2014 End: 07-10-2014 Office outpatient visit 25 minutes Iman Nazario [facility] Start: 07-10-2014 End: 07-10-2014 Patient encounter procedure Iman Nazario DO Work Phone: [facility] Start: 07-07-2014 End: 07-07-2014 Lab Order Iman Mansi [facility] Start: 07-07-2014 End: 07-07-2014 Iman Nazario DO Work Phone: [facility] Start: 06-04-2014 End: 06-04-2014 Office outpatient visit 15 minutes Iman Nazario [facility] Start: 04-20-2014 End: 04-20-2014 Office outpatient visit 25 minutes Iman Nazario [facility] Start: 01-08-2014 End: 01-08-2014 Patient encounter procedure Iman Nazario [facility] Start: 01-08-2014 End: 01-08-2014 Iman Nazario DO Work Phone: [facility] Start: 08-12-2013 End: 08-12-2013 Refill Request Iman Mansi [facility] Start: 08-12-2013 End: 08-12-2013 Iman Nazario DO Work Phone: [facility] Start: 07-08-2013 End: 07-08-2013 Patient encounter procedure Iman Nazario [facility] Start: 07-08-2013 End: 07-08-2013 Iman Nazario DO Work Phone: [facility] Start: 01-07-2013 End: 01-07-2013 Patient encounter procedure Iman Nazario [facility] Start: 01-07-2013 End: 01-07-2013 Iman Nazario DO Work Phone: [facility] Start: 11-25-2012 End: 11-25-2012 Office outpatient visit 15 minutes Iman Nazario [facility] Start: 10-09-2012 End: 10-09-2012 Office outpatient visit 25 minutes Iman Nazario [facility] Start: 07-12-2012 End: 07-12-2012 Office outpatient visit 25 minutes Iman Nazario [facility] Start: 07-10-2012 End: 07-10-2012 Phone Encounter Iman Nazario [facility] Start: 07-10-2012 End: 07-10-2012 Iman Nazario DO Work Phone: [facility] Start: 07-09-2012 End: 07-09-2012 Lab Order Iman Nazario [facility] Start: 07-09-2012 End: 07-09-2012 Iman Nazario DO Work Phone: [facility] Start: 07-09-2012 End: 07-09-2012 Office outpatient visit 25 minutes Iman Nazario [facility] Start: 02-09-2012 End: 02-09-2012 Phone Encounter Iman Nazario [facility] Start: 02-09-2012 End: 02-09-2012 Iman Nazario DO Work Phone: [facility] Start: 02-09-2011 End: 02-09-2011 Patient encounter procedure Iman Nazario [facility] Start: 02-09-2011 End: 02-09-2011 Iman Nazario DO Work Phone: [facility] Start: 02-26-2009 End: 02-26-2009 Patient encounter procedure Iman Nazario [facility] Start: 02-26-2009 End: 02-26-2009 Iman Nazario DO Work Phone: [facility] Start: 07-16-2008 End: 07-16-2008 Office outpatient visit 15 minutes Iman Nazario [facility] Start: 11-16-2006 End: 11-16-2006 Patient encounter procedure Iman Nazario [facility] Start: 11-16-2006 End: 11-16-2006 Iman Nazario DO Work Phone: [facility] Start: 11-12-2006 End: 11-12-2006 Historical Summary Iman Nazario [facility] Start: 11-12-2006 End: 11-12-2006 Iman Nazario DO Work Phone: [facility] Patient encounter procedure Funmi Lezama RN [facility]; [facility] Work Phone: Comment on above: pap 5-15, colonscopy 6-15. mammo 6-15 all planned. Patient encounter procedure Rose Cervantes [facility]; [facility] Work Phone: Comment on above: pap 5-15, colonscopy 6-15. mammo 6-15 all planned. Patient encounter procedure Eugenia Rea [facility]; [facility] Work Phone: Patient encounter procedure Deisi Scott MA [facility]; [facility] Work Phone: Patient encounter status Funmi Lezama RN [facility]; [facility] Work Phone: Comment on above: colonscopy 6-15 good . mammo due next february. tell about shingles vaccine Patient encounter status Jonelle Vines [facility]; [facility] Work Phone: Comment on above: colonscopy 6-15 good . mammo due next february. tell about shingles vaccine Patient encounter status Rose Cervantes [facility]; [facility] Work Phone: Comment on above: colonscopy 6-15 good . mammo due next february. tell about shingles vaccine Patient encounter status Lita Villanueva [facility]; [facility] Work Phone: Patient encounter status Melquiades Truong [facility]; [facility] Work Phone: Patient encounter status Eugenia Jurado KYLIE [facility]; [facility] Work Phone: Patient encounter status Deisi Barrosofreeman ESPINAL [facility]; [facility] Work Phone: End: 07-12-2023 Patient encounter status DARCI Dias [facility]; [facility] Work Phone: End: 04-05-2018 Preprocedural examination done Funmi Lezama RN [facility]; [facility] Work Phone: Procedures Date Procedure Procedure Detail Performing Clinician Start: 10-20-2024 Ct heart no contrast quant eval coronry calcium Iman Nazario DO Work Phone: Start: 08-09-2023 Dual energy X-ray absorptiometry Dr. Iman Nazario Work Phone: Start: 08-09-[address] Iman millard Work Phone: Start: 07-30-[address] Iman Nazario Work Phone: Start: 07-11-2023 X-ray of lumbosacral spine Dr. Iman Nazario Work Phone: Start: 07-11-2023 End: 07-11-2023 Procedure Note: See Note; NOTES: [facility] Radiology [address] [place] [address] L/S Spine Min 4 Views MR#: [id number] Acct: [id number] Name: ISRAEL BAILEY Rep #: [id number] : 1955 F 67 From: Alfa Espinosa MD PCP: Dr. Iman Nazario DO Status: DEP AMB Study: L/S Spine Min 4 Views Date of Exam: 07/11/23 Exam# [id number] Ordering Dr: Iman Nazario DO [id number] STUDY: X-RAY - LUMBAR SPINE REASON FOR EXAM: Female, 67 years old. Lower back pain and left leg pain with numbness. TECHNIQUE: 4 view(s) of the lumbar spine were obtained. COMPARISON: April 28, 2022 FINDINGS: Osteopenia. Normal lumbar lordosis. No substantial scoliosis. 9 mm of anterolisthesis of L5 on S1, unchanged from prior study.. Diffuse lower thoracic and lumbosacral facet sclerosis. Diffuse stable mild intervertebral narrowing without significant osteophyte formation. Vascular calcification. RAD/L/S Spine Min 4 Views IMPRESSION: Stable osteopenia with diffuse mild lower thoracic and lumbosacral spondylosis. No other abnormality. Electronically Signed: Alfa Espinosa MD at 14:35 EDT , CC: Dr. Iman Nazario DO [place] Machinist: Signed Iman Nazario DO Work Phone: Start: 05-02-2023 End: 05-02-2023 Procedure Note: See Note; NOTES: [facility] Physical Therapy [facility] [address] [place] [address] [address] [place] [address] / REHABILITATION SERVICES DISCHARGE SUMMARY MR#: [id number] Acct: [id number] Name: ISRAEL BAILEY Rep #: [id number] : 1955 67 From: Lita CRAFT Referring Dr.: Dr. Melo Huntley MD Status: REG RCR Insurance: MEDICARE PART A B [facility] Discharge Summary D/C summary: It has been my pleasure to treat ISRAEL BAILEY referred by Dr. Melo Huntley MD, with the diagnosis of Back pain for a total of 8 visit(s). Discharge Date: 05/02/23 Please see the following information for a summary of their discharge status. Subjective Subjective: Pt reports that if standing a lot by the end of the day she can tell she is done. The stretches do help but it does come back. The pain is not constant anymore. Mornings and afternoons are ok but by evening she feels it. Pain LBP: Pain Intensity (Out of 10): 0 R leg pain: Pain Intensity (Out of 10): 0 Overall Improvement % Improvement: 80 Objective Objective/Function: Instructed pt in supine with green strap IT band stretch 30 sec X 3 and given as HEP Supine manual Piriformis stretch on the R 30 sec X 3.... great muscle length Bug X 10... pt was not keeping her back flat on the table so instead of 90/90 bug we went ahead and did bent knees to the table. Goals Goal 1:: I HEP Goal Progress: Goal Met Goal 2:: Decrease back and leg pain by 50% Goal Progress: Goal Met Goal 3:: No pain with stretching the R piriformis Goal Progress: Goal Met Plan Plan: DC PT to HEP D/C Information Discharge Comments: DC PT to HEP d/c sentence: If there are questions or concerns regarding this patient's physical therapy, please feel free to call me at [phone]. Thank you for the referral of this patient. Sincerely, VENANCIO Harrell Balance/Gait/Functional tests Balance/Special Test Scores Oswestry Low Back Score: 4 <Electronically signed by Lita CRAFT> 05/02/23 1028 CC: Dr. Melo Huntley MD; Dr. Iman Nazario DO Signed Iman Nazario DO Work Phone: Start: 04-02-2023 End: 04-02-2023 Procedure Note: See Note; NOTES: [facility] Physical [facility] [address] [place] [address]. [address] [place] [address] / REHABILITATION SERVICES INITIAL EVALUATION MR#: [id number] Acct: [id number] Name: ISRAEL BAILEY VIDA Rep #: [id number] : 1955 67 From: Lita CRAFT Referring Dr.: Dr. Melo Huntley MD Status: REG RCR Insurance: MEDICARE PART A B [facility] Patient's Visit Information Visit Information Visit Information: ISRAEL BAILEY is a 67 year old F referred to Physical Therapy by Dr. Melo Huntley MD with a diagnosis of Back pain. Date of Evaluation: 04/02/23 Physical Therapist: VENANCIO Harrell Visit Plan Frequency: 2x /Week Duration: 4 Weeks Plan: 2X/ week for 4 weeks for R piriformis stretching, neutral spine core stability with HEP HEP: seated knee to opposite shoulder piriformis stretch Subjective Subjective: She saw Dr Zaragoza and referred to Dr Huntley...facet issues L5-S1 and DDD. She has been getting injections and abalation. She has pain on the R side LB and pain all the way down the leg. It is pretty much always down the leg. The abalation improved it but if she sits, stands too long or walks too far she has pain. She only take IBprof. She does not take the oxycodone that was given to her and she does not like it. She has had PT before on her neck but not for her LB. She does not feel that she has leg weakness. She can sleep ok and uses a heating pad and ice and take IBprof PM before bed. She has N T. She only got a couple of days out of the injections. Pain LBP: Pain Intensity (Out of 10): 3 Pain Intensity Range: 8 R leg pain: Pain Intensity (Out of 10): 4 Pain Intensity Range: 8 Objective Objective: Gait: Normal gait pattern Trunk AROM: flexion 75%, ext 50%, SB B 75%, Rot B 75% Pt is able to walk on heels and toes LE MMT: R hip flex 15.6 and L 15.3 R knee ext 21.4 and L 23.6 R knee flex 14.9 and L 13.8 R hip abd 12.2 and L hip abd 13.9 Patellar DTR's SLUMP test +R for right buttock pain and -L SLR - B Piriformis length... tighter on the R with some increase pain with stretching and nothing on the L. Balance/Special Test Scores Oswestry Low Back Score: 15 Goals Goal 1:: I HEP Goal Time Frame: 4-6 Weeks Goal 2:: Decrease back and leg pain by 50% Goal Time Frame: 4-6 Weeks Goal 3:: No pain with stretching the R piriformis Goal Time Frame: 4-6 Weeks Rehabilitation Potential Rehabilitation Potential: Good Anticipated Interventions Patient/Client Instruction: Educate patient on: Condition and Plan of Care For the Purpose of:: To decrease pain, To increase ROM, To improve nutrient delivery to tissue, To improve muscle performance and motor function, To improve ability to perform ADL's, To increase tolerance to activity/condition/position , To improve performance and independence with ADL's, To decrease level of supervision to perform tasks, To improve ability of physical actions for home/community/work/leisure , To improve health of tissue and To increase flexibility/ROM Therapeutic Exercise to Include: Strength training, Postural training, Flexibilty training, Neuromotor development, Active ROM and Dynamic Lumbar Stabilization For the Purpose of:: To decrease pain, To increase ROM, To improve nutrient delivery to tissue, To improve muscle performance and motor function, To improve ability to perform ADL's, To increase tolerance to activity/condition/position , To decrease level of supervision to perform tasks, To improve ability of physical actions for home/community/work/leisure , To improve health of tissue, To decrease soft tissue restriction and To increase flexibility/ROM Text: Thank you for the opportunity to evaluate your patient. For Medicare and Medicare HMO plans, please review the plan of care and approve it. It will need to be FAXED BACK to us at [phone] for Medicare purposes. For Medicare only, by signing this I certify the plan of care. Please let me know if there are questions or concerns regarding this plan of care. Physician Signature: Date: <Electronically signed by Lita Gardner MPT> 04/02/23 1418 CC: Dr. Melo Huntley MD; Dr. Iman Nazario, DO Signed Iman Nazario DO Work Phone: Start: 03-22-2023 End: 03-22-2023 Procedure Note: See Note; NOTES: [facility] [address] [place] [address] OFFICE VISIT Date of Service: 03/22/23 MR#: [id number] Acct: [id number] Name: ISRAEL BAILEY Rep #: [id number] : 1955 Provider: Dr. Shiv millard DO Age/Sex: 67/F [place] [facility] Status: Signed Intake Vital Signs 05/04/22 09:06 Height 5 ft Intake Visit Reasons: LUMBAR SPINE Chief Complaint: lumbar Is patient in pain?: Yes Pain scale (1-10): 4 Allergies No Known Allergies Allergy (Verified 03/22/23 13:32) Medications L.acidoph, paracasei,B. lactis 10 billion cell capsule 1 ea PO DAILY 02/23/15 [History Confirmed 03/22/23] amlodipine 5 mg tablet 5 mg PO DAILY 02/23/15 [History Confirmed 03/22/23] atorvastatin 10 mg tablet 20 mg PO QHS 02/23/15 [History Confirmed 03/22/23] calcium carbonate 600 mg-vitamin D3 20 mcg (800 unit) tablet 1 ea PO TID 02/23/15 [History Confirmed 03/22/23] cholecalciferol (vitamin D3) 25 mcg (1,000 unit) tablet (Vitamin D3) 2,000 mg PO DAILY 07/13/16 [History Confirmed 03/22/23] PFSH Surgical History History of cataract surgery Hx of tonsillectomy Family History Father Cancer Other Hypertension Social History Smoking Status: Former smoker Tobacco: How many years used: 30 HPI LUMBAR SPINE Details: Parts of this documentation were recorded by a scribe, this documentation accurately reflects the service provided and the decisions made by me, Dr. Shiv Zaragoza, 03/22/23 6319. ISRAEL BAILEY is a 67 year old F here today for a f/u on her lower back pain. She did have the ablation with Dr. Huntley on February 22. States that her pain is about 50% better but not perfect. [place] returns for follow-up. Dr. Huntley did in fact do the ablation of the L5-S1 facets. It has removed 50% of her pain and she states that this is something that she can easily live with if it does not get any worse. She supposed to see him again I believe in 3 months. The fact that it helped her leads me to believe that in fact the L5-S1 facets are the main pain generator in her low back. They are quite arthritic particularly the one on the right. I told her that I feel the doctor Yuko can keep the pain at bay with an occasional either injection or a repeat ablation also known as a rhizotomy. Dr. Huntley put her in physical therapy she is due to be evaluated on or about the . I will caution her to tell the therapist not to do any exercise that requires extension of her lumbar spine strengthening to neutral or just less than neutral would be okay but not past neutral as that we will start stressing the facets and probably aggravate her pain instead of making her better. I will see her on a as needed basis. 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 Melo Huntley MD; DO Iman Mitchell DO Work Phone: Start: 12-21-2022 End: 12-21-2022 Procedure Note: See Note; NOTES: [facility] [address] [place] [address] OFFICE VISIT Date of Service: 12/21/22 MR#: [id number] Acct: [id number] Name: ISRAEL BAILEY Rep #: [id number] : 1955 Provider: Dr. Shiv millard DO Age/Sex: 67/F [place] [facility] Status: Signed Intake Vital Signs 05/04/22 09:06 Height 5 ft Intake Visit Reasons: LUMBAR SPINE Chief Complaint: lumbar Is patient in pain?: Yes Allergies No Known Allergies Allergy (Verified 05/22/22 09:45) Medications L.acidoph, paracasei,B. lactis 10 billion cell capsule 1 ea PO DAILY 02/23/15 [History Confirmed 12/21/22] amlodipine 5 mg tablet 5 mg PO DAILY 02/23/15 [History Confirmed 12/21/22] atorvastatin 10 mg tablet 20 mg PO QHS 02/23/15 [History Confirmed 12/21/22] calcium carbonate 600 mg-vitamin D3 20 mcg (800 unit) tablet 1 ea PO TID 02/23/15 [History Confirmed 12/21/22] cholecalciferol (vitamin D3) 25 mcg (1,000 unit) tablet (Vitamin D3) 2,000 mg PO DAILY 07/13/16 [History Confirmed 12/21/22] PFSH Surgical History History of cataract surgery Hx of tonsillectomy Family History Father Cancer Other Hypertension Social History Smoking Status: Former smoker Tobacco: How many years used: 30 HPI LUMBAR SPINE Details: Parts of this documentation were recorded by a scribe, this documentation accurately reflects the service provided and the decisions made by me, Dr. Shiv Zaragoza DO 12/21/22926. ISRAEL BAILEY is a 67 year old F here today for low back pain that she has been having for over 1 year. She has lower back pain that is constant and she has numbness and tingling down the right leg into her foot. She has increased pain with bending, twisting. She was last in the office 04/2022 and had xrays then and an MRI of the lumbar spine. She has been seeing Dr. Huntley and has had steroid injections which are not helpful anymore. She states that the injections will be effective for about 3-4 days then the pain and numbness/tingling returns. She is here today with her and daughter to further discuss any surgical option. [place] returns for follow-up in the company of her and her daughter. She explained to me that she has a bleeding disorder of some type and I thought it would be in the medical record but for the life of me I cannot find it in her medical records in the system. Patient is having is on the right side of her back and it radiates into her buttocks down her thigh and down her right leg. It seems to be either an S1 or an L5 distribution. I went back over her old MRI again that demonstrates that she has stenosis at L5-S1 mainly due to some facet arthritis specially on the right side. This allows for slight listhesis of L5 on S1. In other words as a degenerative spinal listhesis she also has a cyst seemingly coming out of the left facet and radiology says that she has 1 on the right side also I however am not sure but I am able to visualize it. On examination, she has good motor strength of all the major muscle groups of both lower extremities. She has physiologic patella and Achilles reflexes bilaterally. She has no long tract signs. I explained to [place] that the problem that she has with bleeding is a big red flags for surgical intervention. Apparently Dr. Huntley has talked to her about an ablation of the facets and I will find out from his office if those facets have been injected yet and if so what the results were before we order ablation. If she does have ablation done I like to see her 3 weeks later. 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 Melo Huntley MD; DO Iman Mitchell DO Work Phone: Start: 08-14-2022 Computed tomography of abdomen and pelvis with contrast Dr. Iman Nazario Work Phone: Start: 08-14-2022 End: 08-14-2022 Procedure Note: See Note; NOTES: [facility] [address] [place] [address] Abdomen/Pelvis WITH Contrast MR#: [id number] Acct: [id number] Name: ISRAEL BAILEY Rep #: [id number] : 1955 F 67 From: Abraham Mckenzie DO PCP: Dr. Iman Nazario DO Status: REG CLI Study: Abdomen/Pelvis WITH Contrast Date of Exam: Exam# [id number] Ordering Dr: Iman Nazario DO INDICATION: Left lower quadrant abdominal pain. Pelvic pain. Postmenopausal female. Diverticulosis. EXAMINATION: CT ABDOMEN AND PELVIS WITH CONTRAST - CT Abdomen And Pelvis W/ Contrast Injection TECHNIQUE: Helically acquired images were obtained of the abdomen and pelvis following IV contrast. A radiation dose optimization technique was used for this scan. IV Contrast dosage and agent: 100 mL of Isovue-300 . Oral contrast: November COMPARISON: None. FINDINGS: LOWER CHEST: Lung bases are clear. No cardiomegaly or pericardial effusion. LIVER: Multiple subcentimeters cysts throughout and otherwise normal liver. No evidence of enhancing focal mass. GALLBLADDER AND BILIARY TREE: No calcified gallstones. No gallbladder distension or wall edema. No intra- or extrahepatic biliary ductal dilation. PANCREAS: No focal cystic or solid mass. SPLEEN: Normal size without focal cystic or solid mass. ADRENAL GLANDS: No nodules. KIDNEYS AND URETERS: Small cyst in the upper pole. Otherwise normal right kidney. Normal left kidney. Normal visualized ureters. PERITONEUM: No ascites or free air. No other fluid collection. BOWEL: Normal stomach. Normal small bowel. There is sigmoid diverticulosis without acute inflammatory change. The colon is otherwise grossly normal. Normal appendix. LYMPH NODES: No enlarged mesenteric or retroperitoneal lymph nodes. VESSELS: Atherosclerotic changes of the abdominal aorta and iliac arteries without dissection or aneurysm. Normal IVC. URINARY BLADDER: Unremarkable. REPRODUCTIVE ORGANS: There is a partially calcified fibroid off the left 5-7 otherwise normal uterus. There is evidence of tubal ligation. No adnexal mass. ABDOMINAL WALL: No discrete abdominal or pelvic wall hernia. BONES: Minimal anterolisthesis of L5 on S1 without pars defects. The lumbar spine is otherwise grossly normal. No lytic or blastic lesions CT/Abdomen/Pelvis WITH Contrast IMPRESSION: 1. Diverticulosis without acute inflammatory change. 2. Uterine fibroid. 3. Nonspecific subcentimeter hepatic cysts. 4. Right renal cyst. 5. No other evidence of renal, ureteral or urinary bladder abnormality. Electronically Signed: Abraham Mckenzie DO at 17:37 EST Reading Location ID and State: [address] [place] [address] Tel [phone], Service support , CC: Dr. Iman Nazario DO Nc Machinist: Signed Iman Nazario DO Work Phone: Start: 07-28-[address] Iman Nazario Work Phone: Start: 07-28-2022 End: 07-28-2022 Procedure Note: See Note; NOTES: [facility] [address] [place] [address] Lung Screening MR#: [id number] Acct: [id number] Name: KASEYISRAEL JOHNSON VIDA Rep #: [id number] : 1955 F 67 From: Abraham Mckenzie DO PCP: Dr. Iman Nazario DO Status: REG CLI Study: Low Dose CT Lung Screening Date of Exam: 07/28 Exam# [id number] Ordering Dr: Iman Nazario DO STUDY: LOW DOSE CT LUNG CANCER SCREENING REASON FOR EXAM: Female, 67 years old. Former smoker. 35 pack-year history. RADIATION DOSAGE (If Supplied By Facility): CTDIvol = ( 2.01 ) mGy, DLP = ( 65.70 ) mGycm TECHNIQUE: No contrast was administered. Low dose technique was utilized (average mAS-38 and kVp 120). 1.25 mm axial source images with a slice interval of 1.25-mm were reconstructed in lung windows. 2.5 mm axial source images with a slice interval of 2.5-mm were reconstructed in lung windows. 5.0 mm axial source images with a slice interval of 5.0-mm were reconstructed in soft tissue windows. COMPARISON: April 26, 2021. NODULES: Total lung nodules (excluding granulomas): 0 Emphysema: None Endobronchial lesion: No Aorta: Mild atherosclerotic changes without aneurysm. CORONARY ARTERIES: Minimal coronary artery calcification Heart: Normal Pulmonary artery: Normal Mediastinal nodes: None Other chest and abdominal findings: Mild degenerative changes of the thoracic spine. Minimal pectus excavatum deformity of the chest wall. CT/Low Dose CT Lung Screening IMPRESSION: Lung-RADS category 1 - Continue annual screening with LDCT in 12 months. IMPORTANT NOTES FOR USE: ACR Lung-RADS Version 1.1 Assessment Categories Release Date: 2018 Category: Coded 0-4 bases on nodule(s) with highest degree of suspicion. Negative screen is defined as categories 1 and 2; a positive screen is defined as categories 3 and 4. Category 3 and 4A nodules that are unchanged on interval CT should be coded as category 2, and individuals returned to screening in 12 months. Category 4X: Category 3 or 4 nodules with additional imaging findings that increase the suspicion of lung cancer, such as spiculation, GGN that doubles in size in 1 year, enlarged lymph notes, etc. Category Modifiers: S (significant finding unrelated to lung cancer) Electronically Signed: Abraham Mckenzie DO at 17:42 EDT Reading Location ID and State: [facility] / [place] Tel [phone], Service support , CC: Dr. Iman Nazario DO Nc Machinist: Signed Iman Nazario DO Work Phone: Start: 07-28-[address] Iman millard Work Phone: Start: 07-28-2022 End: 07-28-2022 Procedure Note: See Note; NOTES: [facility] [address] [place] [address] SCRN MAMM (CAD)W/PUSHPA BILAT MR#: [id number] Acct: [id number] Name: ISRAEL BAILEY Rep #: [id number] : 1955 F 67 From: Pedro Luis joseph MD PCP: Dr. Iman Nazario DO Status: REG CLI Study: SCRN MAMM (CAD)W/PUSHPA BILAT Date of Exam: 01/13 Exam# [id number] Ordering Dr: Iman Nazario DO MAMMOGRAPHY - BILATERAL SCREENING REASON FOR EXAM: Female, 67 years old. Routine annual screening examination. PERTINENT HISTORY: Non-contributory. Remote bilateral stereotactic breast biopsies. TECHNIQUE: Digital bilateral breast pushpa (3D mammographic acquisition) in the CC and MLO projections. 2-D mediolateral oblique (MLO) and craniocaudad (CC) views of both breasts were obtained. CAD: Full Field Digital Mammography with Computer Added Detection was performed. COMPARISON: Comparison is made with prior study dated 04/26/2021 and 05/29/2019. FINDINGS: Breast Composition: The breasts are heterogeneously dense, which may obscure small masses. There are no dominant masses or suspicious calcifications. A tissue clip marker is once again seen in the deep slightly upper medial aspect of the right breast. A tissue marker is also seen in the deep upper central portion of the left breast. Stable bilateral fat-containing axillary lymph nodes. No other significant abnormalities are identified. There has been no significant change since the prior study. BI/SCRN MAMM (CAD)W/PUSHPA BILAT IMPRESSION: Stable bilateral screening mammogram. Yearly follow-up mammogram recommended. (A) ASSESSMENT CATEGORY: BIRADS Category 2: Benign. A letter regarding these results will be sent to the patient by the facility within 30 days. Approximately 10% of breast cancers are not detected by mammography. A normal mammogram should not delay biopsy of a clinically suspicious abnormality. [id number] Electronically Signed: Pedro Luis Thacekr MD at 9:00 EDT Reading Location ID and State: [address] [place] [address] , Service support , CC: Dr. Iman Nazario DO Nc Machinist: Signed Iman Nazario DO Work Phone: Start: 05-22-2022 End: 05-22-2022 Procedure Note: See Note; NOTES: [facility] [address] [place] [address] OFFICE VISIT Date of Service: 05/22/22 MR#: [id number] Acct: [id number] Name: ISRAEL BAILEY Rep #: [id number] : 1955 Provider: Dr. Shiv millard DO Age/Sex: 66/F Location[place] [facility] Status: Signed Intake Intake Visit Reasons: Lumbar spine Is patient in pain?: Yes Allergies No Known Allergies Allergy (Verified 05/22/22 09:45) Medications L.acidoph, paracasei,B. lactis 10 billion cell capsule 1 ea PO DAILY 02/23/15 [History Confirmed 05/22/22] amlodipine 5 mg tablet 5 mg PO DAILY 02/23/15 [History Confirmed 05/22/22] atorvastatin 10 mg tablet 20 mg PO QHS 02/23/15 [History Confirmed 05/22/22] calcium carbonate 600 mg-vitamin D3 20 mcg (800 unit) tablet 1 ea PO TID 02/23/15 [History Confirmed 05/22/22] cholecalciferol (vitamin D3) 25 mcg (1,000 unit) tablet (Vitamin D3) 2,000 mg PO DAILY 07/13/16 [History Confirmed 05/22/22] PFS Surgical History (Updated 05/04/22 @ 09:12 by Lianna Sotry) History of cataract surgery Hx of tonsillectomy Family History (Updated 05/04/22 @ 09:13 by Lianna Story) Father Cancer Other Hypertension Social History (Updated 05/04/22 @ 09:14 by Lianna Story) Smoking Status: Former smoker Tobacco: How many years used: 30 HPI Lumbar spine Details: Parts of this documentation were recorded by a scribe, this documentation accurately reflects the service provided and the decisions made by me, Dr. Shiv Zaragoza, DO 05/22/22 0941. ISRAEL BAILEY is a 66 year old F here today for a followup on her lumbar spine. Patient states that she continues to have lumbar spine pain although it isnt as bad as previously. Patient is no longer taking prednisone. She had an MRI which is here for review [place] returns for follow-up in the company of her . The pain that she has waxes and wanes sometimes it bothers the right leg and sometimes it does not it seems to let up. Her low back pain also also waxes and wanes. She also has a left leg that sometimes bothers her perhaps not as bad overall as the right. I went over the MRI scan at length. She has facet arthritis of the L5-S1 facets that have allowed a degenerative listhesis of L5 on S1. She also has facet cyst on both sides. She has some spinal stenosis at that level. However since her symptoms wax and wane and they are not constant if she has been able to live with it so far I think she is a good candidate for caudal epidural steroid injection. For now would hold off on any surgical intervention. She was in full agreement with me. I will send her to Dr. Huntley for a caudal epidural steroid injection. I would like to visit with her 3 weeks after that is done. Coding Level of Care Code Off vis,est,level 2 Diagnoses Degenerative spondylolisthesis M43.10 Time Spent (min) 25 Assessment and Plan Assessment and Plan (1) Degenerative spondylolisthesis: Status: Acute 05/22/22 1055 <Electronically signed by Shiv Zaragoza DO> Date Shiv Zaragoza DO Cosigner Signature: Date (if applicable) CC: Dr. Melo Huntley MD; DO Iman Mitchell DO Work Phone: Start: 05-17-2022 MRI of lumbar spine Dr. Iman Nazario Work Phone: Start: 05-17-2022 End: 05-17-2022 Procedure Note: See Note; NOTES: [facility] [address] [place] [address] Spine Lumbar (Routine) MR#: [id number] Acct: [id number] Name: ISRAEL BAILEY Rep #: [id number] : 1955 F 66 From: David Saldaña MD PCP: Dr. Iman Nazario DO Status: REG CLI Study: Spine Lumbar (Routine) Date of Exam: 05/17/22 Exam# [id number] Ordering Dr: Shiv Zaragoza DO STUDY: MRI LUMBAR SPINE WITHOUT CONTRAST REASON FOR EXAM: Female, 66 years old. Back pain and right leg pain. TECHNIQUE: Standardized fat and water weighted pulse sequences were obtained in the sagittal and axial planes. COMPARISON: Lumbar spine radiographs 04/28/2022. FINDINGS: T10-T11: (Sagittal only). Normal endplates. Mild disc space height narrowing. No ventral extradural defect. Normal central canal and bilateral intervertebral neural foramina. T11-T12 and T12-L1: (Sagittal only). Normal endplates. Normal disc height, hydration and morphology. No ventral extradural defects. Normal central canal and bilateral intervertebral neural foramina. Normal lumbar lordosis. There is no substantial scoliosis. Normal conus medullaris that terminates at the lower T12 vertebral body level. L1-2: Normal endplates. Normal disc height, hydration and morphology. Normal bilateral facet joints. Normal central canal and bilateral lateral recesses. Normal bilateral intervertebral neural foramina. L2-3: Normal endplates. Normal disc height, hydration and morphology. Normal bilateral facet joints. Normal central canal and bilateral lateral recesses. Normal bilateral intervertebral neural foramina. L3-4: Normal endplates. Normal disc height, hydration and morphology. Normal bilateral facet joints. Normal central canal and bilateral lateral recesses. Normal bilateral intervertebral neural foramina. L4-5: Normal endplates. Mild disc space height narrowing. Minimal ventral extradural defect due to small posterior bulging annulus. Normal facet joint. Mild central canal stenosis with an AP canal diameter of 8 mm. Normal bilateral lateral recesses. Normal bilateral intervertebral neural foramina. L5-S1: Normal endplates. Normal disc height. Mild degenerative anterolisthesis of L5 on S1. Moderately pronounced bilateral degenerative facet arthropathy. Degenerative cysts in the right S1 superior articular facet. Degenerative cyst overlying the anterior surface of the left S1 superior articular facet. Pronounced central canal stenosis with a transverse canal diameter of 4.7 mm. Normal bilateral lateral recesses. Mild stenosis of the left intervertebral neural foramen. Normal right intervertebral neural foramen. Normal visualized sacral ala. Normal visualized paraspinous soft tissue structures. MRI/Spine Lumbar (Routine) IMPRESSION: 1. No MRI evidence of lumbar extruded disc fragment. 2. Mild degenerative anterolisthesis of L5 on S1, moderately pronounced bilateral L5-S1 degenerative facet arthropathy, pronounced central canal stenosis with a transverse canal diameter of 4.7 mm and mild stenosis of the left intervertebral neural foramen. Electronically Signed: David Saldaña MD at 9:09 EDT , CC: Dr. Iman Nazario DO; Dr. Shiv Zaragoza DO Nc Machinist: Signed Shiv Zaragoza Work Phone: Start: 05-04-2022 End: 05-04-2022 Procedure Note: See Note; NOTES: [facility] [address] [place] [address] [address] [place] [address] OFFICE VISIT Date of Service: 05/04/22 MR#: [id number] Acct: [id number] Name: ISRAEL BAILEY Rep #: [id number] : 1955 Provider: Dr. Shiv millard DO Age/Sex: 66/F [place] [facility] [place]: Signed Intake Vital Signs 05/01/22 15:06 05/04/22 09:06 Height 5 ft 5 ft Weight: 120 lb BMI 23.4 Intake Visit Reasons: lumber spine Chief Complaint: Cryoprecipatate Is patient in pain?: Yes Pain scale (1-10): 4 Allergies No Known Allergies Allergy (Verified 09/07/20 08:12) Medications L.acidoph, paracasei,B. lactis 10 billion cell capsule 1 ea PO DAILY 02/23/15 [History Confirmed 05/04/22] amlodipine 5 mg tablet 5 mg PO DAILY 02/23/15 [History Confirmed 05/04/22] atorvastatin 10 mg tablet 20 mg PO QHS 02/23/15 [History Confirmed 05/04/22] calcium carbonate 600 mg-vitamin D3 20 mcg (800 unit) tablet 1 ea PO TID 02/23/15 [History Confirmed 05/04/22] cholecalciferol (vitamin D3) 25 mcg (1,000 unit) tablet (Vitamin D3) 2,000 mg PO DAILY 07/13/16 [History Confirmed 05/04/22] PFSH Surgical History (Updated 05/04/22 @ 09:12 by Lianna Story) History of cataract surgery Hx of tonsillectomy Family History (Updated 05/04/22 @ 09:13 by Lianna Story) Father Cancer Other Hypertension Social History (Updated 05/04/22 @ 09:14 by Lianna Story) Smoking Status: Former smoker Tobacco: How many years used: 30 HPI lumber spine Details: Parts of this documentation were recorded by a scribe, this documentation accurately reflects the service provided and the decisions made by me, Dr. Shiv Zaragoza, DO 05/04/22 0900. ISRAEL BAILEY is a 66 year old F NEW patient here today for low back pain. She states that she has been having this pain for about 3 weeks. She denies any kind of injury. She states that she has a burning sensation across her low back and this pain radiates down her right leg. She states that the pain radiates down the right leg into her foot. She has been started on prednisone which is somewhat helpful. She states that her foot will also become numb. She states that staying in one position will increase her pain. She has been trying to limit her bending and lifting. She was trying ibuprofen for the pain which was not helpful. She does see a chiropractor but has not had an adjustment on her lumbar spine. She was given a HEP for stretch by the chiropractor that she was trying to be at home and this caused her pain to worsen. Denies any previous surgery or injections of the back. SHe is supposed to leave for [place] tomorrow for 1 week. They will be driving. Mrs. Bailey is a most pleasant lady 66 years old who presents in the company of her . This low back pain began 3 weeks ago. She has had off-and-on back pain for a number of years but this is by far the worst episode. This is also the first time she has had pain that goes down her leg and what is described as an L5 dermatome. She denies any bowel or bladder dysfunction. She denies history of unexplained weight loss night fever sweats or chills. Activity makes the pain worse. On examination she has pain perhaps more so with extension of her lumbar spine that she does flexion. With flexion she does start to begin feeling the tightness in her right leg. She has no long tract signs. Clonus is absent Babinski's are downgoing. She has good motor strength of all the major muscle groups of both lower extremities. She has 3+ patella and 2+ Achilles reflexes bilaterally. She also has 2+ posterior tibialis reflexes bilaterally. She has no muscle atrophy. Plain x-rays of the lumbar spine demonstrate what appear to be pars defects of the L5 vertebra. It is hard to tell if his bilateral lower unilateral. However the symptoms suggest that it could be coming from L4-5. However it is well-known that pars defect sometimes will affect the L5 nerve root as it goes by. Nonetheless she obviously needs an MRI scan of the lumbar spine as conservative measures including healthcare management and physical therapy have not helped her. She will have the MRI done when she returns from [place] in a little over a week. I will give her some pain medication to make the trip for her and her less miserable. 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 Iman Nazario, DO Iman Nazario DO Work Phone: Start: 04-28-2022 X-ray of lumbosacral spine Dr. Iman Nazario Work Phone: Start: 04-28-2022 End: 04-28-2022 Comments: See Note; NOTES: [facility] [address] [place] [address] L/S Spine Min 4 Views MR#: [id number] Acct: [id number] Name: ISRAEL BAILEY Rep #: [id number] : 1955 F 66 From: Narayan Wong MD PCP: Dr. Iman Nazaroi, DO Status: DEP AMB Study: L/S Spine Min 4 Views Date of Exam: 04/28/22 Exam# [id number] Ordering Dr: Linda Dent CERTIFIED FAMILY MEDIATORFransiscoC INDICATION: SCIATICA EXAMINATION/TECHNIQUE: X-RAY - XR Spine Lumbar Min 4 Views COMPARISON: None. FINDINGS: Mild levoscoliosis of the upper lumbar spine is seen. Mild exaggeration of the lordosis of the columns of the lumbar spine is visualized with grade 1 anterolisthesis of L5 over S1. No evidence of compression deformity of the lumbar vertebral bodies, mild degenerative endplate changes are seen. Decreased intervertebral disc height visualized at L5-S1 and at L1-L2. Increased density visualized on the L5 pars but no evidence of lucency to suggest the fracture on the left, the right pars is suboptimally evaluated due to extensive degenerative changes Atherosclerotic calcifications visualized in the abdominal aorta. Scattered stool visualized in the large bowel. Pelvic calcifications seen. Bilateral fallopian tube clips seen. RAD/L/S Spine Min 4 Views IMPRESSION: No evidence of fracture is seen, suggestion of for hypertrophic changes at the L5 facet joints causing grade 1 anterolisthesis of L5 over S1, cannot rule out a subtle pars intraarticularis fracture on the right. Electronically Signed: Narayan Wong MD at 13:06 EDT Reading Location ID and State: [address] [place] [address] Tel , Service support , CC: NATALIE Dent; Dr. Iman Nazario DO Nc Machinist: Signed Iman Nazario DO Work Phone: Start: 04-26-2021 End: 04-27-[address] Lung Screening Comments: See Note; NOTES: [facility] Imaging Services [address] [place] [address] Lung Screening MR#: [id number] Acct: [id number] Name: ISRAEL BAILEY Rep #: [id number] : 1955 F 65 From: Sheng Fall DO PCP: Dr. Iman Nazario, DO Status: REG CLI Study: Low Dose CT Lung Screening Date of Exam: 04/26 Exam# [id number] Ordering Dr: Iman Nazario DO STUDY: LOW DOSE CT LUNG CANCER SCREENING REASON FOR EXAM: Female, 65 years old. CURRENT SMOKER RADIATION DOSAGE (If Supplied By Facility): CTDIvol = ( 1.55 ) mGy, DLP = ( 50.56 ) mGycm TECHNIQUE: No contrast was administered. Low dose technique was utilized (average mAS-38 and kVp 120). 1.25 mm axial source images with a slice interval of 1.25-mm were reconstructed in lung windows. 2.5 mm axial source images with a slice interval of 2.5-mm were reconstructed in lung windows. 5.0 mm axial source images with a slice interval of 5.0-mm were reconstructed in soft tissue windows. Nodule measured using lung windows on PACS and/or independent workstation with automated measurement of minimum and maximum diameter. Nodule measurement reported as average diameter rounded to the nearest whole number. Growth is defined as an increase ins size of greater than 1.5 mm. COMPARISON: Previous chest from 12/07/2012 NODULES: Nodule #: None Total lung nodules (excluding granulomas): 0 Emphysema: None Endobronchial lesion: The Aorta: Normal Coronary arteries: Heart: Normal Mediastinal nodes: Normal Other chest and abdominal findings: The pectus excavatum deformity is identified. CT/Low Dose CT Lung Screening IMPRESSION: Pectus excavatum deformity is identified, otherwise the pulmonary parenchyma is normal IMPORTANT NOTES FOR USE: ACR Lung-RADS Version 1.1 Assessment Categories Release Date: 2018 Category: Coded 0-4 bases on nodule(s) with highest degree of suspicion. Negative screen is defined as categories 1 and 2; a positive screen is defined as categories 3 and 4. Category 3 and 4A nodules that are unchanged on interval CT should be coded as category 2, and individuals returned to screening in 12 months. Category 4X: Category 3 or 4 nodules with additional imaging findings that increase the suspicion of lung cancer, such as spiculation, GGN that doubles in size in 1 year, enlarged lymph notes, etc. Category Modifiers: S (significant finding unrelated to lung cancer) Electronically Signed: Sheng Fall DO at 13:08 EDT Tel , Service support , CC: Dr. Iman Nazario DO Nc Machinist: Signed Iman Nazario DO Work Phone: Start: 04-26-2021 End: 05-03-2021 Dexa Bone Density Study Comments: See Note; NOTES: [facility] Imaging Services [address] [place] [address] Dexa Bone Density Study MR#: [id number] Acct: [id number] Name: ISRAEL BAILEY Rep #: [id number] : 1955 F 65 From: Pedro Luis joseph MD PCP: Dr. Iman Nazario DO Status: REG CLI Study: Dexa Bone Density Study Date of Exam: 04/26/21 Exam# [id number] Ordering Dr: Iman Nazario DO STUDY: DUAL ENERGY X-RAY ABSORPTIOMETRY / DXA REASON FOR EXAM: Female, 65 years old. Z780. Patient is postmenopausal. TECHNIQUE: Bone Mineral Density (BMD) measurements of lumbar spine and bilateral hips were obtained. COMPARISON: Comparison is made with prior study dated 05/15/2018. FINDINGS: Lumbar Spine (L1-L4): g/cm2 (0.777) / T-score (-2.5) / Z-score (-0.6) Findings are suggestive of osteopenia with a high fracture risk. Left Femur Total: g/cm2 (0.777) / T-score (-1.4) / Z-score (-0.1) Left Femoral Neck: g/cm2 (0.657) / T-score (-1.7) / Z-score (-0.2) Right Femur Total: g/cm2 (0.752) / T-score (-1.6) / Z-score (-0.3) Right Femoral Neck: g/cm2 (0.654) / T-score (-1.8) / Z-score (-0.2) The T-Scores on the most recent prior examination were: Lumbar Spine (L1-L4): There has been worsening of bone density since the previous examination. Left Femur Total: which represents a worsening of 6.5%. Right Femur Total: which represents a worsening of 1.9%. BD/Dexa Bone Density Study IMPRESSION: The patient is considered osteopenic as outlined below according to World Robert Organization (WHO) criteria with a high fracture risk. There has been worsening of bone density since the previous examination. Reference Information: The T-score is the number of standard deviations above or below the standard which is normal for young adults at their peak bone mineral density. The World Health Organization (WHO) interprets the T-scores as follows: Above -1 Normal bone density Between -1 and -2.5 Osteopenia Equal to / or below -2.5 Osteoporosis As a practical clinical guideline, osteopenia may be graded as follows: Mild -1 through -1.5 Moderate -1.6 through -2.0 Severe -2.1 through -2.4 The Z-score is the number of standard deviations above or below age-matched controls. A Z-score of less than -1.5 would be considered abnormal. References: 1. NIH Osteoporosis and Related Bone Diseases www osteo.org 2. International Society for Clinical Densitometry www iscd.org 3. National Osteoporosis Foundation www nof.org Electronically Signed: Pedro Luis Thacker MD at 10:09 EDT , Service support , CC: Dr. Iman Nazario DO Nc Machinist: Signed Iman Nazario DO Work Phone: Start: 04-26-2021 End: 04-27-2021 SCRN MAMM (CAD)W/PUSHPA BILAT Comments: See Note; NOTES: [facility] Imaging Services [address] [place] [address] SCRN MAMM (CAD)W/PUSHPA BILAT MR#: [id number] Acct: [id number] Name: ISRAEL BAILEY Rep #: [id number] : 1955 F 65 From: Sheng Fall DO PCP: Dr. Iman Nazario DO Status: REG CLI Study: SCRN MAMM (CAD)W/PUSHPA BILAT Date of Exam: 12/12 Exam# [id number] Ordering Dr: Iman Nazario DO MAMMOGRAPHY - BILATERAL SCREENING REASON FOR EXAM: Female, 65 years old. Routine annual screening examination. PERTINENT HISTORY: Screening TECHNIQUE: Digital bilateral breast pushpa (3D mammographic acquisition) in the CC and MLO projections. 2-D mediolateral oblique (MLO) and craniocaudad (CC) views of both breasts were obtained. CAD: Full Field Digital Mammography with Computer Added Detection was performed. COMPARISON: Previous mammogram obtained on 06/13/2019 FINDINGS: Breast Composition: Dense There are no dominant masses or suspicious calcifications. This patient has some dense internal breast structure in the superior medial aspect of the posterior right breast and the 2 o''clock position which have been previously biopsied and has actually decreased in size and radiodensity compared with the previous study obtained on 05/29/2019 and probably represents residual focal atelectasis change. BI/SCRN MAMM (CAD)W/PUSHPA BILAT IMPRESSION: Stable bilateral screening mammogram. Yearly follow-up mammogram recommended. (A) ASSESSMENT CATEGORY: BIRADS Category 1: Negative. A letter regarding these results will be sent to the patient by the facility within 30 days. Approximately 10% of breast cancers are not detected by mammography. A normal mammogram should not delay biopsy of a clinically suspicious abnormality. [id number] Electronically Signed: Sheng Fall DO at 15:04 EDT Tel , Service support , CC: Dr. Iman Nazario DO Nc Machinist: Signed Iman Nazario DO Work Phone: Start: 05-29-2019 End: 05-29-2019 SCREEN MAMM (CAD) W/PUSHPA BILAT Comments: See Note; NOTES: [facility] Imaging Services [address] [place] [address] SCREEN MAMM (CAD) W/PUSHPA BILAT MR#: [id number] Acct: [id number] Name: ISRAEL BAILEY Rep #: [id number] : 1955 F 63 From: Pedro Luis Thacker MD PCP: Iman Nazario DO Status: [facility] Study: SCREEN MAMM (CAD) W/PUSHPA BILAT Date of Exam: 05/29/19 Exam# [id number] Ordering Dr: Iman Nazario DO MAMMOGRAPHY - BILATERAL SCREENING REASON FOR EXAM: Female, 63 years old. Routine annual screening examination. PERTINENT HISTORY: Non-contributory. History of bilateral stereotactic breast biopsies and left breast aspiration. TECHNIQUE: Digital bilateral breast pushpa (3D mammographic acquisition) in the CC and MLO projections. 2-D mediolateral oblique (MLO) and craniocaudad (CC) views of both breasts were obtained. CAD: Full Field Digital Mammography with Computer Added Detection was performed. COMPARISON: Comparison is made with prior study dated May 15, 2018 and March 06, 2017. FINDINGS: Breast Composition: The breasts are heterogeneously dense, which may obscure small masses. There are no dominant masses or suspicious calcifications. Interstitial markers once again seen in the upper slightly lateral portion of the left breast as well as in the deep slightly superior medial portion of the right breast. Stable benign appearing bilateral axillary lymph nodes. No other significant abnormalities are identified. There has been no significant change since the prior study. BI/SCREEN MAMM (CAD) W/PUSHPA BILAT IMPRESSION: Stable bilateral screening mammogram. Yearly follow-up mammogram recommended. (A) ASSESSMENT CATEGORY: BIRADS Category 2: Benign. A letter regarding these results will be sent to the patient by the facility within 30 days. Approximately 10% of breast cancers are not detected by mammography. A normal mammogram should not delay biopsy of a clinically suspicious abnormality. [id number] Electronically Signed: Pedro Luis Thacker, at 8:52 EDT , Service support , CC: Iman Nazario DO Nc Machinist: Signed Iman Nazario Work Phone: Start: 05-15-2018 End: 05-15-2018 Dexa Bone Density Study Comments: See Note; NOTES: [facility] Imaging Services [address] [place] [address] Dexa Bone Density Study MR#: [id number] Acct: [id number] Name: ISRAEL BAILEY Carol Rep #: [id number] : 1955 F 62 From: Pedro Luis Thacker MD PCP: Iman Nazario DO Status: [facility] CLI Study: Dexa Bone Density Study Date of Exam: 05/15/18 Exam# [id number] Ordering Dr: Iman Nazario DO STUDY: DUAL ENERGY X-RAY ABSORPTIOMETRY / DXA REASON FOR EXAM: Female, 62 years old. The patient is postmenopausal. Loss of height. TECHNIQUE: Bone Mineral Density (BMD) measurements of lumbar spine and bilateral hips were obtained. COMPARISON: Comparison is made with prior study dated July 02, 2013. FINDINGS: Lumbar Spine (L1-L4): g/cm2 (0.908) / T-score (-2.3) / Z-score (-0.9) Findings are suggestive of osteopenia with a moderate fracture risk. Left Femur Total: g/cm2 (0.894) / T-score (-0.9) / Z-score (0.2) Left Femoral Neck: g/cm2 (0.837) / T-score (-1.4) / Z-score (-0.1) Right Femur Total: g/cm2 (0.828) / T-score (-1.4) / Z-score (-0.4) Right Femoral Neck: g/cm2 (0.814) / T-score (-1.6) / Z-score (-0.3) The T-Scores on the most recent prior examination were: Lumbar Spine (L1-L4): There has been worsening of bone density since the previous examination. Left Femur Total: which represents a worsening of 1.5%. Right Femur Total: which represents a worsening of 5.4%. BD/Dexa Bone Density Study IMPRESSION: The patient is considered osteopenic as outlined below according to World Robert Organization (WHO) criteria with a moderate fracture risk. There has been worsening of bone density since the previous examination. Reference Information: The T-score is the number of standard deviations above or below the standard which is normal for young adults at their peak bone mineral density. The World Health Organization (WHO) interprets the T-scores as follows: Above -1 Normal bone density Between -1 and -2.5 Osteopenia Equal to / or below -2.5 Osteoporosis As a practical clinical guideline, osteopenia may be graded as follows: Mild -1 through -1.5 Moderate -1.6 through -2.0 Severe -2.1 through -2.4 The Z-score is the number of standard deviations above or below age-matched controls. A Z-score of less than -1.5 would be considered abnormal. References: 1. NIH Osteoporosis and Related Bone Diseases http://www.osteo.org 2. International Society for Clinical Densitometry http://www.iscd.org 3. National Osteoporosis Foundation http://www.nof.org Electronically Signed: Pedro Luis Thacker MD at 11:56 EDT Tel [phone], Service support , CC: Iman Nazario DO Nc Machinist: Signed Iman Nazario Work Phone: Start: 05-15-2018 End: 05-15-2018 SCREENING MAMM (CAD), BILAT Comments: See Note; NOTES: [facility] Imaging Services [address] [place] [address] SCREENING MAMM (CAD), BILAT MR#: [id number] Acct: [id number] Name: ISRAEL BAILEY Rep #: [id number] : 1955 F 62 From: Pedro Luis Thacker MD PCP: Iman Nazario DO Status: [facility] Study: SCREENING MAMM (CAD), BILAT Date of Exam: 05/15/18 Exam# [id number] Ordering Dr: Iman Nazario DO MAMMOGRAPHY - BILATERAL SCREENING REASON FOR EXAM: Female, 62 years old. Routine annual screening examination. PERTINENT HISTORY: Remote bilateral stereotactic breast biopsies. TECHNIQUE: Digital bilateral breast pushpa (3D mammographic acquisition) in the CC and MLO projections. 2-D mediolateral oblique (MLO) and craniocaudad (CC) views of both breasts were obtained. CAD: Full Field Digital Mammography with Computer Added Detection was performed. COMPARISON: Comparison is made with prior study dated March 06, 2017 and February 29, 2016. FINDINGS: Breast Composition: The breasts are heterogeneously dense, which may obscure small masses. There are no dominant masses or suspicious calcifications. A tissue clip marker is seen in the upper slightly lateral portion of the left breast. A tissue clip marker is also seen deep in the slightly superior medial portion of the right breast. Stable appearance of the bilateral axillary lymph nodes. No other significant abnormalities are identified. There has been no significant change since the prior study. BI/SCREENING MAMM (CAD), BILAT IMPRESSION: Stable bilateral screening mammogram. Yearly follow-up mammogram recommended. (A) ASSESSMENT CATEGORY: BIRADS Category 2: Benign. A letter regarding these results will be sent to the patient by the facility within 30 days. Approximately 10% of breast cancers are not detected by mammography. A normal mammogram should not delay biopsy of a clinically suspicious abnormality. [id number] Electronically Signed: Pedro Luis Thacker MD at 10:50 EDT Tel [phone], Service support , CC: Iman Nazario DO Nc Machinist: Signed Iman Nazario Work Phone: Start: 10-01-2017 End: 10-01-2017 Echocardiogram Complete Comments: See Note; NOTES: [facility] Cardiovascular Services [address] [place] [address] Echo Complete 10/01/17 0902 MR#: [id number] Acct: [id number] Name: ISRAEL BAILEY Rep #: [id number] : 1955 62 From: Matthew Johnston MD Attending Dr: Iman Nazario DO Status: REG CLI Ordering Dr: Iman Nazario DO Date: 10/01/17 Location: [facility] Sex: F C Admitted: Reason For Study: RBBB Procedure This was a 2D Doppler, Color Flow transthoracic echocardiogram. Exam performed in department. Left Ventricle Normal LV size. Left ventricular systolic function is normal. The estimated ejection fraction is 60 %. No regional wall motion abnormalities noted. Right Ventricle Normal size and thickness. Normal systolic function. Atria Normal left atrium. Normal right atrium. Mitral Valve Normal mitral valve. Tricuspid Valve Normal tricuspid valve. Aortic Valve Normal aortic valve. Trisinus/trileaflet aortic valve. Pulmonic Valve Normal pulmonic valve. Great Vessels Normal aortic root. The pulmonary artery is normal size. Normal inferior vena cava. Pericardium/Pleural No pericardial effusion. MMode/2D Measurements AND Calculations LVIDd: 3.7 cm IVSd: 1.1 cm Ao root diam: 2.3 cm LVIDs: 2.0 cm LVPWd: 1.1 cm LA dimension: 3.0 cm RVDd: 1.9 cm FS: 45.9 % LAV(MOD-bp): 25.7 ml LA A4 area: 9.3 cm2 RA A4 area: 5.2 cm2 LAV(MOD-bp) Indexed: 17.3 ml/m2 LAV(MOD-sp2): 36.4 ml LAV(MOD-sp4): 16.9 ml Doppler Measurements AND Calculations MV E max corey: 79.6 cm/sec Lat Peak E' Corey: 11.0 cm/sec Med Peak E' Corey: 7.4 cm/sec MV A max corey: 80.8 cm/sec E/E' lat: 7.3 E/E' med: 10.7 MV E/A: 0.99 Ao V2 max: 136.5 cm/sec LV V1 max: 106.4 cm/sec PA V2 max: 107.9 cm/sec Ao max P.5 mmHg LV V1 max P.5 mmHg Interpretation Summary Normal LV size. Left ventricular systolic function is normal. The estimated ejection fraction is 60 %. Structurally normal valves. Ordering Physician: Iman Nazario Performed By: Halima Mcdowell RDCS 10/01/17 1038 Date Matthew Johnston MD CC: Iman Nazario DO Date Dictated: 10/01/17 09 Date Transcribed: 10/01/17 1038 Nc Machinist: Signed Iman Nazario Work Phone: Start: 03-06-2017 End: 03-09-2017 SCREENING MAMM (CAD), BILAT Comments: See Note; NOTES: [facility] Imaging Services [address] [place] [address] Verdana 4d SCREENING MAMM (CAD), BILAT MR#: [id number] Acct: [id number] Name: ISRAEL BAILEY Rep #: [id number] : 1955 F 61 From: Luis Fernando Keller MD PCP: Iman Nazario DO Status: [facility] Study: SCREENING MAMM (CAD), BILAT Date of Exam: 03/06/17 Exam# [id number] Ordering Dr: Iman Nazario DO MAMMOGRAPHY - BILATERAL SCREENING REASON FOR EXAM: Female, 61 years old. Routine annual screening examination. PERTINENT HISTORY: TECHNIQUE: Digital bilateral breast pushpa (3D mammographic acquisition) in the CC and MLO projections. 2-D mediolateral oblique (MLO) and craniocaudad (CC) views of both breasts were obtained. CAD: Full Field Digital Mammography with Computer Added Detection was performed. COMPARISON: Feb 29 2016 7:09AM and a mammogram from Feb 26 2015 1:53PM FINDINGS: Breast Composition: The breasts are heterogeneously dense, which may obscure small masses. There are no dominant masses or suspicious calcifications. No other significant abnormalities are identified. HPBI/SCREENING MAMM (CAD), BILAT IMPRESSION: Stable bilateral screening mammogram. Yearly follow-up mammogram recommended. (A) ASSESSMENT CATEGORY: BIRADS Category 2: Benign. A letter regarding these results will be sent to the patient by the facility within 30 days. Approximately 10% of breast cancers are not detected by mammography. A normal mammogram should not delay biopsy of a clinically suspicious abnormality. [id number] Electronically Signed: Luis Fernando Keller MD at 10:50 EDT Tel , Service support , CC: Iman Nazario DO Nc Machinist: Signed Iman Nazario Work Phone: Start: 07-13-2016 End: 07-13-2016 Emergency Department Summary Comments: See Note; NOTES: [facility] Medical Records Department [address] [place] [address] Emergency Department Summary MR#: [id number] Acct: [id number] Name: ISRAEL BAILEY Carol Rep #: [id number] : 1955 60 From: Lopez Storey MD PCP: Iman Nazario DO Status: [facility] ER DATE OF SERVICE: 07/13/2016 CHIEF COMPLAINT: Neck pain, then with transient dyspnea and an accelerated heart rate, all of which has resolved. HISTORY OF PRESENT ILLNESS: This is a 60-year-old female with known history of degenerative disk disease due to ____ held off on doing any surgery ____ has been recommended today. She was walking through area store, had neck pain and then got accelerated heart rate and short of breath. She thinks it may have been an anxiety, all since has resolved. Since that time, she feels well. She has not felt ill the last several days. She denies any chest pain or dyspnea recently. She has had recent workups including a Holter monitor a year or so ago, which was negative. PHYSICAL EXAMINATION: GENERAL: A 60-year-old female accompanied by her daughter who is a nurse. VITAL SIGNS: Stable, afebrile, heart rate 91, pulse ox 100% on room air. No signs of hypoxia. HEENT: Unremarkable. NECK: Nontender. No JVD. Trachea midline. LUNGS: Clear to auscultation bilaterally. HEART: Regular rate and rhythm, no murmur. Equal, symmetrical radial pulses. Chest wall nontender. ABDOMEN: Soft and nontender. EXTREMITIES: Moves all 4. Neurovascularly intact. Bilateral 5/5 stone carver strength, dorsiflexion and plantar flexion. Calves are nontender. No edema. No cords. NEUROLOGIC: Normal. EMERGENCY DEPARTMENT COURSE: I had a lengthy discussion with both the patient and her daughter who is an RN, explained to her that exam is normal. She is back to her baseline. She has no symptomatology; she has no recent exertional chest pain or shortness of breath or concerning symptoms. She states she feels fine; they are comfortable with her being discharged without any workup. I am comfortable with that plan also. IMPRESSION: Transient dyspnea and accelerated heart rate, resolved. PLAN: Discharged to home. Follow up with Dr. Ann Nazario. MD Rhiannon Masterson C: Iman Nazario DO T: NTS JOB: [id number] 07/13/16 1632 <Electronically signed by Lopez Storey MD> Date Lopez Storey MD Cosigner Signature (If Indicated): Date CC: Iman Nazario DO Date Dictated: 07/13/161315 Date Transcribed: 07/13/161315 Nc Machinist: Signed Iman Nazario Start: 07-13-2016 End: 07-13-2016 Discharge Instruction Comments: See Note; NOTES: [facility] Medical Records Department [address] [place] [address] Discharge Instruction 07/13/161316 MR#: [id number] Acct: [id number] Name: ISRAEL BAILEY Rep #: [id number] : 1955 60 From: Lopez Storey MD PCP: Iman Nazario DO Status: REG ER ED Disposition - Plan for ED Patient: Disposition: Home or Assisted Living Chief Complaint: Shortness of Breath Instructions: ED Dyspnea Shortness of Breath Referrals: Iman Nazario DO [Primary Care Provider] - 3-5 Days Additional Instructions: CALL OR RETURN IF WORSE What to do if you have Problems For any increased pain, shortness of breath, bleeding, nausea or vomiting, chest pain, or any unexpected problems, contact your Primary Care Provider. Call [facility] ([phone]) or report to the closest Emergency Room. Call 911 if necessary. 07/13/16 1338 <Electronically signed by Lopez Storey MD> Date Lopez Storey MD Cosigner Signature (If Indicated): Date CC: Iman Peoples Start: 02-29-2016 End: 02-29-2016 Bilat Scrn Digital AND CAD Comments: See Note; NOTES: [facility] Imaging Services [address] [place] [address] Verdana 4d Bilat Scrn Digital AND CAD MR#: [id number] Acct: [id number] Name: ISRAEL BAILEY Rep #: [id number] : 1955 F 60 From: Pedro Luis Thacker MD PCP: Maddy Hernandez MD Status: REG CLI Study: Bilat Scrn Digital AND CAD Date of Exam: 02/29/16 Exam# [id number] Ordering Dr: Maddy Hernandez MD MAMMOGRAPHY - BILATERAL SCREENING REASON FOR EXAM: Female, 60 years old. Routine annual screening examination. PERTINENT HISTORY: Prior bilateral stereotactic biopsies. TECHNIQUE: Digital bilateral breast tomosynthesis (3-D mammographic acquisition) in the CC and MLO projections. Synthesized 2-D images (C-View reconstruction from tomosynthesis acquisition) providing bilateral breast CC and MLO views. Mediolateral oblique (MLO) and craniocaudad (CC) views of both breasts were obtained. CAD: Full Field Digital Mammography with Computer Added Detection was performed. COMPARISON: Comparison is made with prior study dated February 26, 2015 and February 24, 2014. FINDINGS: Breast Composition: The breasts are heterogeneously dense, which may obscure small masses. There are no dominant masses or suspicious calcifications. A stereotactic tissue clip marker is seen in the upper outer aspect of the left breast and in the upper medial aspect of the right breast. No other significant abnormalities are identified. There has been no significant change since the prior study. IMPRESSION: Stable bilateral screening mammogram. Yearly follow-up mammogram recommended. (A) ASSESSMENT CATEGORY: BIRADS Category 2: Benign. A letter regarding these results will be sent to the patient by the facility within 30 days. Approximately 10% of breast cancers are not detected by mammography. A normal mammogram should not delay biopsy of a clinically suspicious abnormality. [id number] Electronically Signed: Pedro Luis Thacker MD at 8:34 EDT Tel [phone], Service support [phone], CC: Maddy Hernandez MD Nc Machinist: Signed Maddy Hernandez Work Phone: Start: 02-11-2016 End: 02-11-2016 PT D/C of Non Returning Pt (1) Comments: See Note; NOTES: [facility] Physical Therapy [facility] [address] [place], [place] [address] Fax REHABILITATION SERVICES DISCHARGE SUMMARY MR#: [id number] Acct: [id number] Name: ISRAEL BAILEY Rep #: [id number] : 1955 60 From: Angelic Vines PT, Cert. MDT Referring DrDelvin: Lissette Hudson Status: REG [facility] Insurance: [employer] - Discharge Summary (1) - Patient Information ISRAEL BAILEY was seen in my office for initial evaluation on 12/07/15. The following Plan of Care was established for this patient: Initial Frequency: 2-3x /Week Initial Duration: 4-6 Weeks - Anticipated Interventions Patient/Client Instruction: Educate patient on: Condition, Plan of Care, Risk Factors, Benefits of Fitness Program For the Purpose of:: To improve self management Therapeutic Exercise to Include: Strength training, Body mechanics, Postural training, Scapular Strength/Stabilization For the Purpose of:: To improve ability of physical actions for home/community/work/leisure Manual Therapy Techniques to Include: Soft tissue mobilization Comment: MANUAL TRACTION For the Purpose of:: To decrease pain, To decrease swelling/inflammation, To increase ROM TENS: Yes Cryotherapy (ice pack, ice massage): Yes Thermo therapy (hot pack): Yes Ultrasound (thermal/non thermal): Yes Intermittent cervical traction: Yes For the Purpose of:: To decrease pain, To decrease swelling/inflammation, To increase ROM This patient was last seen in our office . Pertinent comments regarding their Physical therapy will appear below: PATIENT HAS NOT RETURNED TO PT AND IS APPROPRIATE TO RETURN TO MD FOR FURTHER FOLLOW-UP NEEDED. At this point I will be discontinuing this patient from physical therapy. I would be happy to see this patient again in the future if found appropriate by the physician. Thank you! Angelic Vines <Electronically signed by Angelic Vines PT, Cert. MDT> 02/11/16 1459 CC: Lissette Hudson; Maddy Hernandez MD GULSHAN Signed Iman Nazario Start: 12-30-2015 End: 12-30-2015 Spine Cervical (Routine) Comments: See Note; NOTES: [facility] Imaging Services [address] [place] [address] Verdana 4d Spine Cervical (Routine) MR#: [id number] Acct: [id number] Name: ISRAEL BAILEY Rep #: [id number] : 1955 F 60 From: Miguel Carlson MD PCP: Maddy Hernandez MD Status: REG CLI Study: Spine Cervical (Routine) Date of Exam: 12/30/15 Exam# [id number] Ordering Dr: Maddy Hernandez MD STUDY: MRI CERVICAL SPINE WITHOUT CONTRAST REASON FOR EXAM: Female, 60 years old. Neck pain, numbness/tingling left arm,NKI TECHNIQUE: Standardized fat and water weighted pulse sequences were obtained in the sagittal and axial planes. COMPARISON: X-rays of the cervical spine on 02-09-15 FINDINGS: Normal foramen magnum and brainstem-cervical cord junction. Normal craniovertebral junction. Normal anterior atlantoaxial articulation. Normal odontoid process. Normal cervical lordosis. Normal vertebral bodies and posterior osseous elements. C2-3: Normal endplates. Normal disc height, signal and morphology. Normal central canal and intervertebral neural foramina. C3-4: Normal endplates. Normal disc height, signal and morphology. Normal central canal and intervertebral neural foramina. C4-5: Normal endplates. Normal disc height, signal and morphology. Normal central canal and intervertebral neural foramina. C5-6: Normal endplates. There is disc space narrowing. There is an annular bulge. Normal central canal. There is right foraminal stenosis. C6-7: Normal endplates. There is a left paracentral disc herniation of the protrusion type measuring approximately 3 x 7 mm in AP and transverse diameter (axial gradient echo series 7 image 24), with mild compression of the ventral aspect of the cord. Normal central canal and intervertebral neural foramina. C7-T1: Normal endplates. Normal disc height, signal and morphology. Normal central canal and intervertebral neural foramina. Normal signal intensity of the cervical cord. Normal visualized soft tissue structures. IMPRESSION: C5-6 degenerative disc disease with annular bulge and right foraminal stenosis. C6-7 left paracentral disc herniation of the protrusion type with mild compression of the ventral aspect of the cord. Electronically Signed: Miguel Carlson MD, FACR at 9:34 EDT , Service support [phone], CC: Maddy Hernandez MD Nc Machinist: Signed Maddy Hernandez Work Phone: Start: 12-07-2015 End: 12-07-2015 Inital Evaluation (1) - PT Comments: See Note; NOTES: [facility] Physical Therapy [facility] [address] [place] [address]. [address] [place] [address] Fax REHABILITATION SERVICES INITIAL EVALUATION MR#: [id number] Acct: [id number] Name: ISRAEL BAILEY Rep #: [id number] : 1955 60 From: Angelic Vines PT, Cert. T Referring DrDelvin: Lissette Hudson Status: REG R Insurance: [employer] [facility] Date: Patient's Visit Information ISRAEL BAILEY is a 60 year old F referred to Physical Therapy by Lissette Hudson with a diagnosis of NECK PAIN. 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 Present symptoms: PATIENT REPORTS LEFT SHOULDER BLADE PAIN 2-8/10. HER NECK DOESN'T REALLY GET PAINFUL BUT SHE HAS A NUMBNESS TYPE FEELINIG ALONG THE CENTER OF HER NECK. INTERMITTENT MELVIN LEFT > RIGHT UE NUMBNESS AND TINGLING TO HER FINGERS. SHE ALSO GETS INTERMITTENT CHEST PAIN. SHE ALSO ON RARE OCCASION GETS NUMBNESS AND TINGLING IN ONE LEG OR THE OTHER. Present since: A YEAR AGO. Commenced as a result of: NO APPARENT REASON. Symptoms at onset: LEFT SHOULDER BLADE. Worse: SITTING AT THE DESK. Better: IBUPROFEN, STRETCHING, MASSAGER, 5 LB UE WT LIFTING. TRACTION AT THE CHIROPRACTOR. Disturbed sleep: YES. Previous history: NONE. Previous treatment: THIS EPISODE SHE HAS TRIED A MUSCLE RELAXER, MASSAGE THERAPY AND CHIROPRACTOR. Gait: NORMAL. OTHER : SHE FEELS SHE IS CURRENTLY WORSENING. Accidents: NO. Unexplained weight loss: NO. Imaging: RECENT CERVICAL X-RAY: SPUR FORMATION C56 AND C67. MILD R NEUROFORAMINAL CANAL NARROWING C67. PMH: HTN. Recent major surgery: NO - Objective Sitting Posture: POOR. Standing Posture: POOR. FORWARD HEAD AND ROUNDED SHOULDERS. NO TORTICOLLIS. Motor deficit: MELVIN UE'S AND LE'S 5/5 WITH MMT EXCEPT SCAPULAR AREAS GRADED POOR. Sensory deficit: MELVIN UE'S AND LE'S INTACT AND SYMMETRICAL. ROM deficit: UE'S AND LE'S WFL. Reflexes: UE'S 2/2. Dural Signs: POSITIVE MELVIN UE'S. Cervical mvmt loss: flex - nil. ext - mod. ret - ran. R SG - min. L SG - min. Melvin Rot - min. Palpation: TIGHTNESS THROUGHOUT THE CERVICAL AND THORACIC MUSCULATURE. THERE IS ALSO TENDERNESS WITH PALPATION OF THE ENTIRE CERVICAL AND THORACIC SPINE GREATEST IN THE MID AND LOWER CERVICAL SPINE. THE OCCIPUT IS NOT TENDER. OTHER: DECREASED PAIN WITH CERVICAL TRACTION TESTING. - Goals Goal 1:: DECREASE C/O NECK NUMBNESS Goal Time Frame: 4-6 Weeks Goal 2:: DECREASE C/O MELVIN UE SX'S Goal Time Frame: 4-6 Weeks Goal 3:: IMPROVE WORK AND SLEEP FUNCTION Goal Time Frame: 4-6 Weeks Goal 4:: INSTRUCT IN PROPHYLAXIS Goal Time Frame: 4-6 Weeks - Rehabilitation Potential Rehabilitation Potential: Good - Anticipated Interventions Patient/Client Instruction: Educate patient on: Condition, Plan of Care, Risk Factors, Benefits of Fitness Program For the Purpose of:: To improve self management Therapeutic Exercise to Include: Strength training, Body mechanics, Postural training, Scapular Strength/Stabilization For the Purpose of:: To improve ability of physical actions for home/community/work/leisure Manual Therapy Techniques to Include: Soft tissue mobilization Comment: MANUAL TRACTION For the Purpose of:: To decrease pain, To decrease swelling/inflammation, To increase ROM TENS: Yes Cryotherapy (ice pack, ice massage): Yes Thermo therapy (hot pack): Yes Ultrasound (thermal/non thermal): Yes Intermittent cervical traction: Yes For the Purpose of:: To decrease pain, To decrease swelling/inflammation, To increase ROM Thank you for the opportunity to evaluate your patient. For Medicare and Medicare HMO plans, please review the plan of care and approve it. It will need to be FAXED BACK to us at [phone] for Medicare purposes. Please let me know if there are questions or concerns regarding this plan of care. Physician Signature: Date: <Electronically signed by Angelic Vines PT, Cert. MDT> 12/07/15 1204 CC: Lissette Hudson; Maddy Hernandez MD GULSHAN Signed For Medicare only, by signing this I certify the plan of care. _ Physicians Signature Date Iman Mansi Start: 03-09-2015 End: 03-09-2015 Operative Report Comments: See Note; NOTES: [facility] Medical Records Department [address] [place] [address] Operative Report MR#: [id number] Acct: [id number] Name: ISRAEL BAILEY Rep #: [id number] : 1955 59 From: Juan Bruner MD PCP: Maddy Hernandez MD Status: REG CLI DATE OF SERVICE: PROCEDURE PERFORMED: Colonoscopy to the cecum. PREOPERATIVE DIAGNOSIS: screening colonoscopy. POSTOPERATIVE DIAGNOSES: Scattered diverticula to the sigmoid area. No large polyp seen. MEDICATIONS GIVEN: Anesthesia via MAC. INSTRUMENT: Olympus adjustable pediatric colonoscope. DESCRIPTION OF PROCEDURE: Informed consent was obtained prior to the procedure. The patient was brought to the procedure room, placed left shoulder down and given the above medications, anesthesia via the MAC. A rectal exam revealed no palpable masses. The colonoscope was passed in retrograde and the mucosa appeared normal. Moving up the left colon, there was diverticula through the sigmoid area. Up across the transverse colon, the mucosa was normal. Down the right colon, cecum was well visualized. The patient had an excellent preparation. The appendiceal orifice was photographed. Back up the ascending colon, the mucosa was normal. Back across the transverse colon, there were no large polyps seen. Below the splenic flexure and down through the left colon, there were no large polyps seen. Down towards the sigmoid and rectum, the mucosa was normal. There was diverticula to the sigmoid area. Retroflexion from the rectum showed some small internal hemorrhoids. The colon was decompressed, and the patient tolerated the procedure well. IMPRESSION: This is a 59-year-old female, screening colonoscopy, no large polyps seen. She has some diverticula. PLAN: A high-fiber diet and repeat a colonoscopy in 10 years. MD Rhiannon Hung C: Maddy Hernandez MD T: NTS JOB: [id number] 03/09/15 0814 <Electronically signed by Juan Bruner MD> Date Juan Bruner MD CC: Maddy Hernandez MD; Juan Bruner Date Dictated: 03/02/15806 Date Transcribed: 03/02/15806 Nc Machinist: Signed Iman Nazario Start: 02-26-2015 End: 02-26-2015 Asmita Scrn Digital AND CAD Comments: See Note; NOTES: [facility] Imaging Services [address] [place] [address] Breast Imaging Report MR#: [id number] Acct: [id number] Name: ISRAEL BAILEY Rep #: [id number] : 1955 F 59 From: Pedro Luis Thacker MD PCP: Maddy Hernandez MD Status: REG CLI Study: Asmita Ana Paula Digital AND CAD Date of Exam: 02/26/15 Exam# [id number] Ordering Dr: Maddy Hernandez MD MAMMOGRAPHY - BILATERAL SCREENING REASON FOR EXAM: Female, 59 years old. Routine annual screening examination. PERTINENT HISTORY: Prior bilateral stereotactic biopsies. TECHNIQUE: Digital examination. Mediolateral oblique (MLO) and craniocaudad (CC) views of both breasts were obtained. CAD: CAD was performed on this study. COMPARISON: Comparison is made with prior study dated February 24, 2014 and July 02, 2013. FINDINGS: Breast Composition: The breasts are heterogeneously dense, which may obscure small masses. The nodular density in the upper outer aspect of the left breast has decreased in size as compared to prior study. A stereotactic tissue marker clip is seen within it. The nodule in the upper the midportion of the right breast is unchanged. A stereotactic tissue marker is seen within it. No other significant abnormalities are identified. There has been no significant change since the prior study. IMPRESSION: Stable bilateral screening mammogram. Yearly follow-up recommended. (A) ASSESSMENT CATEGORY: BIRADS Category 2: Benign. A letter regarding these results will be sent to the patient by the facility within 30 days. Approximately 10% of breast cancers are not detected by mammography. A normal mammogram should not delay biopsy of a clinically suspicious abnormality. Electronically Signed: Pedro Luis Thacker MD at 14:20 EDT Tel [phone], Service support [phone], CC: Maddy Hernandez MD Nc Machinist: Signed Maddy Hernandez Work Phone: Start: 02-09-2015 End: 02-10-2015 Cerv Spine 4 or 5 Views Comments: See Note; NOTES: [facility] Imaging Services [address] [place] [address] Radiology Report MR#: [id number] Acct: [id number] Name: ISRAEL BAILEY Rep #: [id number] : 1955 F 59 From: Jorge Harrison MD PCP: Maddy Hernandez MD Status: REG CLI Study: Cerv Spine 4 or 5 Views Date of Exam: 02/09/15 Exam# [id number] Ordering Dr: Lissette Hudson STUDY: X-RAY - CERVICAL SPINE REASON FOR EXAM: Female, 59 years old. Nontraumatic neck pain. TECHNIQUE: 5 view(s) of the cervical spine were obtained. COMPARISON: None FINDINGS: Normal anterior atlantoaxial articulation. Normal odontoid process. Normal cervical lordosis. No vertebral body fracture. Facet joints in normal alignment. Loss of height with endplate change and spur formation within the C5-C6 intervertebral disc space. Mild nonuniform joint space narrowing with spur formation involving bilateral uncovertebral joints at C6-C7. Mild right-sided neuroforaminal canal narrowing at C6-C7. The soft tissue structures are unremarkable. 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 Electronically Signed: Jorge Harrison MD at 4:41 EDT Tel , Service support [phone], CC: Lissette Hudson; Maddy Hernandez MD Nc Machinist: Signed Mara Becca Work Phone: Start: 06-14-2014 End: 06-14-2014 Carotid Duplex Ultrasound Comments: See Note; NOTES: [facility] Cardiovascular Services [address] [place] [address] Carotid Duplex Ultrasound 06/12/14 0906 MR#: [id number] Acct: [id number] Name: ISRAEL BAILEY Rep #: [id number] : 1955 58 From: Shawn Martin MD Attending Dr: Iman Nazario DO Status: REG CLI Ordering Dr: Iman Nazario DO Date: 06/12/14 Location: [facility] Sex: F C Admitted: Rt. Velocities/BP Lt. Velocities/BP Prox CCA 109/24 cm/sec. Prox CCA 86/25 cm /sec. Mid CCA 93/21 cm/sec. Mid CCA 76/22 cm/ sec. Dist CCA 66/21 cm/sec. Dist CCA 72/25 cm /sec. Prox ICA 76/28 cm/sec. Prox ICA 80/29 cm /sec. Mid ICA 90/33 cm/sec. Mid ICA 89/38 cm/ sec. Dist ICA 103/38 cm/sec. Dist ICA 90/35 cm /sec. Rt. ICA/CCA = 1.1. Lt. ICA/CCA = 1.0. Prox ECA 115/28 cm/sec. Prox ECA 111/27 cm/sec. Rt. Vert. 55/12 cm/sec. Lt. Vert. 61/20 cm/sec. Right Extracranial There is intimal thickening but no significant atherosclerotic plaque noted in the right common carotid artery. There is intimal thickening but no significant atherosclerotic plaque noted in the right internal carotid artery. There is intimal thickening but no significant atherosclerotic plaque noted in the right external carotid artery. Antegrade flow is noted in the right vertebral artery. There is heterogeneous, smooth atherosclerotic plaque noted in the right bulb. Left Extracranial There is intimal thickening but no significant atherosclerotic plaque noted in the left common carotid artery. There is intimal thickening but no significant atherosclerotic plaque noted in the left internal carotid artery. There is intimal thickening but no significant atherosclerotic plaque noted in the left external carotid artery. Antegrade flow is noted in the left vertebral artery. There is heterogeneous, irregular atherosclerotic plaque noted in the left bulb. Procedure Carotid Duplex 08375. Exam performed in department. Interpretation Summary Mild (<50%) stenosis right extracranial internal carotid. Mild (<50%) stenosis left extracranial internal carotid. Flow within the vertebral arteries is antegrade bilaterally. Ordering Physician: Iman Nazario Referring Physician: Maddy Hernandez M.D. Performed By: Sallie Unger 06/14/141934 Date Shawn Martin MD CC: Maddy Hernandez MD; Iman Nazario DO Date Dictated: 06/12/14905 Date Transcribed: 06/14/141934 Nc Machinist: Signed Iman Nazario Start: 07-07-2013 End: 07-07-2013 Breast Bilateral Comments: See Note; NOTES: [facility] Imaging Services [address] [place] [address] Ultrasound Report MR#: [id number] Acct: [id number] Name: ISRAEL BAILEY Carol Rep #: [id number] : 1955 F 57 From: Pedro Luis Thacker MD PCP: Maddy Hernandez MD Status: REG CLI Study: Breast Bilateral Date of Exam: 07/07/13 Exam# [id number] Ordering Dr: Maddy Hernandez MD STUDY: ULTRASOUND BREAST(S) - BILATERAL REASON FOR EXAM: Female, 57 years old. Abnormal screening mammogram. TECHNIQUE: Axial and longitudinal images of the BILATERAL breast were performed with a high resolution ultrasound transducer. COMPARISON: Comparison is made with prior mammogram dated July 02, 2013. FINDINGS: RIGHT BREAST: 1 cm x 0.9 cm x 0.8 cm hypoechoic well-defined nodule at the 2:00 position of the breast at 4 sinus from the nipple. There is no evidence of posterior acoustical enhancement. The wall is slightly thickened. A biopsy is recommended. LEFT BREAST: There is a 9 mm x 10 mm x 7 mm slightly irregular hypoechoic nodule at the 12:00 position of the breast at 3 cm from the nipple. There is minimal posterior acoustical shadowing. A biopsy is recommended. IMPRESSION: Hypoechoic nodular density seen in the breasts as described. Bilateral breast biopsy is recommended. ASSESSMENT CATEGORY: BIRADS Category 4: Suspicious Abnormality - Biopsy Should Be Considered. Signed: Pedro Luis Thacker M.D. July 07, 2013 at 12:53:06 PM EDT [phone] Electronically Signed GP/GP If you are the referring physician and would like to consult with the radiologist who provided this interpretation, please contact Pedro Luis Thacker M.D. at [phone]. If this radiologist is unavailable, you will be directed to another radiologist to assist. If you are a patient with a question regarding this report, please contact your referring physician directly. Professional Interpretation Provided By: [employer], Phone , These documents contain legally protected and confidential health information intended only for the use of the individual or entity named above. If you are not the intended recipient, you are hereby notified that any disclosure, copying, distribution, or other use of these documents is strictly prohibited. If you have received this information in error, please notify the sender immediately and arrange for the return or destruction of these documents. CC: Maddy Hernandez MD Nc Machinist: Signed Maddy Hernandez Work Phone: Start: 07-02-2013 End: 07-03-2013 Bilat Scrn Digital & CAD Comments: See Note; NOTES: [facility] Imaging Services [address] [place] [address] Breast Imaging Report MR#: [id number] Acct: [id number] Name: ISRAEL BAILEY Rep #: [id number] : 1955 F 57 From: Pedro Luis Thacker MD PCP: Maddy Hernandez MD Status: REG CLI Exam# [id number] Ordering Dr: Maddy Hernandez MD MAMMOGRAPHY - BILATERAL SCREENING REASON FOR EXAM: Female, 57 years old. Routine annual screening examination. PERTINENT HISTORY: Non-contributory. TECHNIQUE: Digital examination. Mediolateral oblique (MLO) and craniocaudad (CC) views of both breasts were obtained. CAD: CAD was performed on this study. COMPARISON: Comparison is made with prior examination dated August 10, 2005. FINDINGS: The breast composition is composed of scattered fibroglandular tissues ranging from 25% to 50% of the breast. There is a 1 cm x 1 cm ill-defined nodule in the upper midportion of the left breast. This also evidence of a 1 cm dense slightly irregular nodule in the deep upper aspect of the right breast. Correlation with ultrasound is recommended. IMPRESSION: Irregular nodules seen in both breasts as described. Correlation with ultrasound is recommended. ASSESSMENT CATEGORY: BIRADS Category 0: Incomplete. Need additional imaging evaluation. A letter regarding these results will be sent to the patient by the facility within 30 days. Approximately 10% of breast cancers are not detected by mammography. A normal mammogram should not delay biopsy of a clinically suspicious abnormality. Signed: Pedro Luis Thacker M.D. July 03, 2013 at 8:52:17 AM EDT [phone] Electronically Signed GP/GP If you are the referring physician and would like to consult with the radiologist who provided this interpretation, please contact Pedro Luis Thacker M.D. at [phone]. If this radiologist is unavailable, you will be directed to another radiologist to assist. If you are a patient with a question regarding this report, please contact your referring physician directly. Professional Interpretation Provided By: [employer], Phone , These documents contain legally protected and confidential health information intended only for the use of the individual or entity named above. If you are not the intended recipient, you are hereby notified that any disclosure, copying, distribution, or other use of these documents is strictly prohibited. If you have received this information in error, please notify the sender immediately and arrange for the return or destruction of these documents. CC: Maddy Hernandez MD Nc Machinist: Signed Maddy Hernandez Work Phone: Start: 07-02-2013 End: 07-03-2013 Dexa Bone Density Study (HP) Comments: See Note; NOTES: [facility] Imaging Services [address] [place] [id number] Bone Density Report MR#: [id number] Acct: [id number] Name: ISRAEL BAILEY Rep #: [id number] : 1955 F 57 From: Pedro Luis Thacker MD PCP: Maddy Hernandez MD Status: REG CLI Study: Dexa Bone Density Study (HP) Date of Exam: 07/02/13 Exam# [id number] Ordering Dr: Maddy Hernandez MD STUDY: DUAL ENERGY X-RAY ABSORPTIOMETRY / DXA REASON FOR EXAM: Female, 57 years old. The patient is postmenopausal. TECHNIQUE: Bone Mineral Density (BMD) measurements of lumbar spine and bilateral hips were obtained. COMPARISON: None. FINDINGS: Lumbar Spine (L1-L4): g/cm2 (0.974) / T-score (-1.7) / Z-score (-0.7) Findings are suggestive of osteopenia with a moderate fracture risk. Left Femur Total: g/cm2 (0.908) / T-score (-0.8) / Z-score (0.0) Left Femoral Neck: g/cm2 (0.860) / T-score (-1.3) / Z-score (-0.1) Right Femur Total: g/cm2 (0.875) / T-score (-1.0) / Z-score (-0.2) Right Femoral Neck: g/cm2 (0.807) / T-score (-1.7) / Z-score (-0.5) IMPRESSION: The patient is considered osteopenic as outlined below according to World Robert Organization (WHO) criteria with a moderate fracture risk. Reference Information: The T-score is the number of standard deviations above or below the standard which is normal for young adults at their peak bone mineral density. The World Health Organization (WHO) interprets the T-scores as follows: Above -1 Normal bone density Between -1 and -2.5 Osteopenia Equal to / or below -2.5 Osteoporosis As a practical clinical guideline, osteopenia may be graded as follows: Mild -1 through -1.5 Moderate -1.6 through -2.0 Severe -2.1 through -2.4 The Z-score is the number of standard deviations above or below age-matched controls. A Z-score of less than -1.5 would be considered abnormal. References: 1. NIH Osteoporosis and Related Bone Diseases http://www.osteo.org 2. International Society for Clinical Densitometry http://www.iscd.org 3. National Osteoporosis Foundation http://www.nof.org Signed: Pedro Luis Thacker M.D. July 03, 2013 at 12:54:06 PM EDT [phone] Electronically Signed GP/GP If you are the referring physician and would like to consult with the radiologist who provided this interpretation, please contact Pedro Luis Thacker M.D. at [phone]. If this radiologist is unavailable, you will be directed to another radiologist to assist. If you are a patient with a question regarding this report, please contact your referring physician directly. Professional Interpretation Provided By: [employer], Phone , These documents contain legally protected and confidential health information intended only for the use of the individual or entity named above. If you are not the intended recipient, you are hereby notified that any disclosure, copying, distribution, or other use of these documents is strictly prohibited. If you have received this information in error, please notify the sender immediately and arrange for the return or destruction of these documents. CC: Maddy Hernandez MD Nc Machinist: Signed Maddy Hernandez Work Phone: Plan of Treatment Date Care Activity Detail Author Start: 2030 RSV Vaccine (1 - 1-d ose 75+ series) RSV Vaccine (1 - 1-dose 75+ series) [facility] Start: 05-25-2024 Covid-19 Vaccine ( season) Covid-19 Vaccine ( season) [facility] Start: 05-25-2024 Influenza vaccination Influenza Vacc ine (#1) [facility] Start: 09-24-2023 Advance Directive Discussion Advance Directive Discussion [facility] Start: 07-12-2023 Procedure Education [facility]; [facility] Work Phone: Start: 07-12-2023 Provider Instruction s for Treatment [facility]; [facility] Work Phone: Start: 07-12-2023 25 hydroxy includes fractions if performed [facility]; [facility] Work Phone: Start: 07-12-2023 Assay of thyroid stimulating hormone tsh [facility]; [facility] Work Phone: Start: 07-12-2023 Urnls dip stick/tabl et reagent auto microscopy [facility]; [facility] Work Phone: Start: 07-12-2023 Urine albumin quantitative [facility]; [facility] Work Phone: Start: 07-12-2023 Comprehensive metabo lic panel [facility]; [facility] Work Phone: Start: 07-12-2023 Lipid panel [facility]; [facility] Work Phone: Start: 07-12-2023 Blood count complete auto&auto difrntl wbc [facility]; [facility] Work Phone: Start: 01-11-2023 Procedure [facility]; [facility] Work Phone: Start: 01-11-2023 Provider Instruction s for Treatment [facility]; [facility] Work Phone: Start: 08-14-2022 Procedure Education [facility]; [facility] Work Phone: Start: 08-14-2022 C-reactive protein [facility]; [facility] Work Phone: Start: 08-14-2022 Sedimentation rate r bc non-automated [facility]; [facility] Work Phone: Start: 08-14-2022 Comprehensive metabo lic panel [facility]; [facility] Work Phone: Start: 08-14-2022 Blood count complete auto&auto difrntl wbc [facility]; [facility] Work Phone: Start: 07-07-2022 Procedure Education [facility]; [facility] Work Phone: Start: 07-07-2022 Provider Instruction s for Treatment [facility]; [facility] Work Phone: Start: 07-07-2022 25 hydroxy includes fractions if performed [facility]; [facility] Work Phone: Start: 07-07-2022 Assay of thyroid stimulating hormone tsh [facility]; [facility] Work Phone: Start: 07-07-2022 Urnls dip stick/tabl et reagent auto microscopy [facility]; [facility] Work Phone: Start: 07-07-2022 Urine albumin quantitative [facility]; [facility] Work Phone: Start: 07-07-2022 Comprehensive metabo lic panel [facility]; [facility] Work Phone: Start: 07-07-2022 Blood count complete auto&auto difrntl wbc [facility]; [facility] Work Phone: Start: 07-07-2022 Lipid panel [facility]; [facility] Work Phone: Start: 05-22-2022 Patient referral [facility] Work Phone: Start: 04-28-2022 Procedure Education [facility]; [facility] Work Phone: Start: 01-04-2022 Procedure Education [facility]; [facility] Work Phone: Start: 01-04-2022 Provider Instruction s for Treatment [facility]; [facility] Work Phone: Start: 11-24-2021 Assay of thyroid stimulating hormone tsh TSH (79871) [facility]; [facility] Work Phone: Start: 11-24-2021 Lipoprotein blood qu an numbers & subclasses NMR Profile (31447) [facility]; [facility] Work Phone: Start: 11-24-2021 Comprehensive metabo lic panel METABOLIC PANEL, COMPREHENSIVE (33058) [facility]; [facility] Work Phone: Start: 11-24-2021 25 hydroxy includes fractions if performed CALCIFIDIOL (86582) VIT D 25 [facility]; [facility] Work Phone: Start: 11-24-2021 Urine albumin quantitative MICROALBUMIN: CREATININE RATIO (65735) AND (36129) [facility]; [facility] Work Phone: Start: 11-24-2021 Urnls dip stick/tabl et reagent auto microscopy URINALYSIS, W/ MICRO (81015) [facility]; [facility] Work Phone: Start: 11-24-2021 Blood count complete auto&auto difrntl wbc CBC W/AUTO DIFF WBC (70273) [facility]; [facility] Work Phone: Start: 07-01-2021 Procedure [facility]; [facility] Work Phone: Start: 06-20-2021 Sars-cov-2 antibody [facility]; [facility] Work Phone: Start: 04-01-2021 Procedure Education [facility]; [facility] Work Phone: Start: 04-01-2021 Provider Instruction s for Treatment [facility]; [facility] Work Phone: Start: 04-01-2021 Hepatitis c antibody HEPATITIS C ANTIBODY (10999) [facility]; [facility] Work Phone: Start: 2020 Pneumococcal Vaccine : 65+ (1 of 1 - PCV) Pneumococcal Vaccine: 65+ (1 of 1 - PCV) [facility] Start: 2020 Screening for osteoporosis Bone Density Screening [facility] Start: 11-21-2019 Provider Instruction s for Treatment [facility] Work Phone: Start: 05-22-2019 Procedure Education [facility] Work Phone: Start: 05-22-2019 Provider Instruction s for Treatment [facility] Work Phone: Start: 05-22-2019 25 hydroxy includes fractions if performed CALCIFIDIOL (44486) VIT D 25 [facility] Work Phone: Start: 05-22-2019 Lipoprotein blood qu an numbers & subclasses NMR Profile (45288) [facility] Work Phone: Start: 05-22-2019 TSH Qn TSH (12568) [facility] Work Phone: Start: 05-22-2019 Urnls dip stick/tabl et reagent auto microscopy URINALYSIS, W/ MICRO (18133) [facility] Work Phone: Start: 05-22-2019 Urine albumin quantitative MICROALBUMIN: CREATININE RATIO (74150) AND (33603) [facility] Work Phone: Start: 05-22-2019 Comprehensive metabo lic panel METABOLIC PANEL, COMPREHENSIVE (26187) [facility] Work Phone: Start: 05-22-2019 Blood count complete auto&auto difrntl wbc CBC W/AUTO DIFF WBC (67312) [facility] Work Phone: Start: 05-28-2018 Provider Instruction s for Treatment [facility] Work Phone: Start: 04-12-2018 Provider Instruction s for Treatment [facility] Work Phone: Start: 04-12-2018 Cytp cerv/vag auto t hin layer prep mnl screen [facility] Work Phone: Start: 04-05-2018 Provider Instruction s for Treatment [facility] Work Phone: Start: 10-11-2017 Provider Instruction s for Treatment [facility] Work Phone: Start: 09-19-2017 Procedure [facility] Work Phone: Start: 09-19-2017 Provider Instruction s for Treatment [facility] Work Phone: Start: 12-28-2016 Provider Instruction s for Treatment [facility] Work Phone: Start: 06-02-2016 Prothrombin time [facility]; [facility] Work Phone: Comment on above: STAT Start: 06-02-2016 Prothrombin time (PT ) Coag time (PPP) PT (Prothrobim Time) (80474) [facility] Work Phone: Comment on above: STAT Start: 05-25-2016 Provider Instruction s for Treatment [facility] Work Phone: Start: 02-11-2016 Procedure Education [facility] Work Phone: Start: 02-11-2016 Blood count manual c ell count each [facility] Work Phone: Start: 02-11-2016 Comprehensive metabo lic panel [facility] Work Phone: Start: 02-11-2016 Lipid panel [facility] Work Phone: Start: 2015 RSV High Risk: (Elde rly (60+) or Population) (1 - Risk 60-74 years 1-dose series) RSV High Risk: (Elderly (60+) or Population) (1 - Risk 60-74 years 1-dose series) [facility] Start: 02-26-2015 Provider Instruction s for Treatment [facility] Work Phone: Start: 02-19-2015 Patient Education [facility] Work Phone: Start: 02-19-2015 Cytp c/v auto thin l yr prepj scr mnl rescr phys [facility] Work Phone: Start: 02-09-2015 Provider Instruction s for Treatment [facility] Work Phone: Start: 02-09-2015 Assay of troponin quantitative [facility]; [facility] Work Phone: Start: 02-09-2015 Troponin I.cardiac m ass conc Troponin I (73271) [facility] Work Phone: Start: 02-09-2015 Creatine kinase mb fraction only [facility] Work Phone: Start: 02-09-2015 Creatine kinase total [facility] Work Phone: Start: 02-09-2015 C-reactive protein [facility]; [facility] Work Phone: Start: 02-09-2015 CRP mass conc C-Reactive Pro tein (48448) [facility] Work Phone: Start: 01-08-2015 Patient Education [facility] Work Phone: Start: 01-08-2015 Urinalysis qual/semiquant except immunoassays [facility] Work Phone: Start: 01-08-2015 Lipid panel [facility] Work Phone: Start: 01-08-2015 Comprehensive metabo lic panel [facility] Work Phone: Start: 01-08-2015 Blood count complete automated [facility] Work Phone: Start: 06-04-2014 Procedure Education [facility] Work Phone: Start: 06-04-2014 Provider Instruction s for Treatment [facility] Work Phone: Start: 04-20-2014 Provider Instruction s for Treatment [facility] Work Phone: Start: 04-20-2014 Blood occult peroxid ase actv qual feces 1 deter [facility] Work Phone: Start: 04-20-2014 Cul bact stool aerob ic isol salmonella&shigell [facility] Work Phone: Start: 04-20-2014 Culture bacterial an y source anaerobic iso&id [facility] Work Phone: Start: 04-20-2014 Leukocyte assmt feca l qual/semiquantitative [facility] Work Phone: Start: 04-20-2014 Ova&parasites direct smears concentration & id [facility] Work Phone: Start: 07-08-2013 Patient Education [facility] Work Phone: Start: 07-08-2013 Provider Instruction s for Treatment [facility] Work Phone: Start: 07-08-2013 Calcium urine quantitative timed specimen [facility] Work Phone: Start: 07-08-2013 25 hydroxy includes fractions if performed [facility] Work Phone: Start: 07-08-2013 Protein electrophore tic fractj&quantj serum [facility] Work Phone: Start: 07-08-2013 Assay of phosphorus inorganic [facility]; [facility] Work Phone: Start: 07-08-2013 Phosphate mass conc PHOSPHORUS (8410 0) [facility] Work Phone: Start: 07-08-2013 Assay of parathormone [facility] Work Phone: Start: 10-09-2012 Provider Instruction s for Treatment [facility] Work Phone: Start: 07-12-2012 Provider Instruction s for Treatment [facility] Work Phone: Start: 07-09-2012 Patient Education [facility] Work Phone: Start: 07-09-2012 Provider Instruction s for Treatment [facility] Work Phone: Start: 07-09-2012 Urine albumin quantitative [facility] Work Phone: Start: 07-09-2012 Creatinine other source [facility] Work Phone: Start: 02-09-2011 Provider Instruction s for Treatment [facility] Work Phone: Start: 02-26-2009 Provider Instruction s for Treatment [facility] Work Phone: Start: 02-26-2009 Lipid panel [facility] Work Phone: Comment on above: draw fasting Setp 09 Start: 02-26-2009 Lipoprotein blood qu an numbers & subclasses [facility]; [facility] Work Phone: Comment on above: draw Jun 02 Start: 02-26-2009 Protein mass conc LIPOPROTEIN, BLD, BY NMR (73251) [facility] Work Phone: Comment on above: draw Jun 02 Start: 07-16-2008 Provider Instruction s for Treatment [facility] Work Phone: Start: 11-16-2006 Provider Instruction s for Treatment [facility] Work Phone: Start: 11-16-2006 Glucose mass conc Glucose (66943) [facility] Work Phone: Start: 11-16-2006 Glucose quantitative blood xcpt reagent strip [facility]; [facility] Work Phone: Start: 11-16-2006 Lipid panel [facility] Work Phone: Start: 11-16-2006 Cytp cerv/vag auto t hin layer prep mnl screen [facility] Work Phone: Start: 2005 Pneumococcal vaccination Pneum ococcal Vaccine (1 of 1 - PCV) [facility] Start: 2005 Shingrix Vaccine (1 of 2) Shingrix Vaccine (1 of 2) [facility] Start: 2005 Zoster Vaccines (1 of 2) Zoste r Vaccines (1 of 2) [facility] Start: 2000 Diabetes Screening Diabetes Screenin g [facility] Start: 2000 Lipid panel Lipid Screening [facility] Start: 2000 Screening for malign ant neoplasm of colon [facility] Start: 1995 Screening for malign ant neoplasm of breast [facility] Start: 1977 DTaP/Tdap/Td Vaccine s (1 - Tdap) DTaP/Tdap/Td Vaccines (1 - Tdap) [facility] Start: 1974 Urine microalbumin profile DTaP,Tdap,Td Vaccine (1 - Tdap) [facility] Start: 1973 Anxiety Screening Anxiety Screening [facility] Start: 1973 Depression Screening Depression Scre ening [facility] Start: 1973 Diabetes mellitus screening Diabetes Screening [facility] Start: 1973 Hepatitis C screening Hepatitis C Sc fortunato [facility] Start: 1955 Lipid panel Lipid Panel [facility] Start: 1955 Medicare Annual Well ness Visit Medicare Annual Wellness Visit (AWV) [facility] Start: 1955 Screening for malign ant neoplasm of colon [facility] Start: 1955 Screening for osteoporosis Bone Density Scan [facility] Patient referral [facility] Work Phone: [facility] Work Phone: [facility] Work Phone: [facility] Work Phone[facility] Work Phone: [facility] Work Phone: [facility] Work Phone: [facility] Work Phone: [facility] Work Phone: [facility] Work Phone: [facility] Work Phone: [facility] Work Phone: [facility] Work Phone: [facility] Work Phone: [facility] Work Phone: [facility] Work Phone: [facility] Work Phone: [facility] Work Phone: [facility] Work Phone: [facility] Work Phone: [facility] Work Phone[facility] Work Phone: [facility] Work Phone: [facility] Work Phone: [facility] Work Phone: [facility] Work Phone: [facility] Work Phone: [facility] Work Phone: [facility] Work Phone[facility] Work Phone: [facility] Work Phone[facility] Work Phone: [facility] Work Phone: [facility] Work Phone: [facility]; [facility] Work Phone: [facility] Work Phone: [facility] Work Phone: [facility] Work Phone: [facility] Work Phone: [facility] Work Phone: [facility] Work Phone: [facility]; [facility] Work Phone: [facility] Work Phone: [facility]; [facility] Work Phone: [facility] Work Phone: [facility]; [facility] Work Phone: Immunizations Immunization Date Immunization Notes Care Provider [facility] 12-07-2020 COVID-19 (Pfizer) I[facility] Work Phone: 11-16-2020 COVID-19 (Pfizer) [facility] Work Phone: Payers Date Payer Category Payer Self-pay [id number] 2021 Medicare [id number] 2021 Unknown [id number] 2020 Medicare MEDICARE PART A AND B [id number] 2020 Medicare [id number] 2019 Unknown [id number] 00 2016 [facility] [id number] 2010 Unknown [id number] 1955 Unknown [id number] [id number] 6 1955 Unknown [id number] [id number] 43 Unknown Unknown [id number] Unknown [id number] [id number] 2 Unknown [id number] 2.16.840.1.826423.3.579.2.46 2 Unknown [id number] 2.16.840.1.715546.3.579.2.46 2 Unknown [id number] 2.16.840.1.682957.3.579.2.46 2 Unknown [id number] 2.16.840.1.143751.3.579.2.46 2 Unknown [id number] 2.16.840.1.390352.3.579.2.46 2 Unknown [id number] 2.16.840.1.747745.3.579.2.46 2 Unknown [id number] 2.16.840.1.810182.3.579.2.46 2 Unknown [id number] 2.16.840.1.281527.3.579.2.46 2 Unknown [id number] 2.16.840.1.934061.3.579.2.46 2 Unknown [id number] [id number] 2 Social History Date Type Detail Facility [facility] Work [facility]: Comment on above: 2 cups coffee qd, 1 can soda qd Moderate Lives with spouse Eye center Smokes < 1 pack of c igarettes per day Start: 05-22-2022 End: 03-22-2023 Tobacco smoking status MSIS Unknown if ever smoked [facility] Start: 1955 Sex Assigned At Female W [facility] Start: 06-23-2016 Tobacco smoking stat us MSIS Smokes tobacco daily [facility] History of tobacco use Cigarette Smoker [facility] Start: 06-23-2016 Tobacco use and exposure Smokeless tobacco non-user [facility] Start: 11-14-2016 Alcoholic beverage intake Current non-drinker of alcohol (finding) [facility] Start: 07-15-2013 Tobacco Comment 4-5 cigarettes per day [facility] Start: 1955 Sex assigned at Not on file [facility] Gender identity Not on file [facility] in Start: 10-10-2024 End: 10-20-2024 Exposure to SARS-CoV-2 (event) Not sure [facility] Functional Status Date Assessment Result Facility 12-29-2021 [facility] Work Phone: 11-21-2019 LP-IR Score 27 [facility] Work [facility]: Comment on above: INSULIN RESISTANCE Val POMPA <--Insulin Sensitive Insulin Resistant--> Percentile in Reference PopulationInsulin Resistance ScoreLP-IR Score Low 25th 50th 75th High <27 27 45 63 >63LP-IR Score is inaccurate if patient is non-fasting. .The LP-IR score is a laboratory developed index that has beenassociated with insulin resistance and diabetes risk and should beused as one component of a physician's clinical assessment. Test(s) 929037-GKS-Y ; 949594-WPB-L; 221660-KIA-G; 623172-Nnqqezhextlbx; 912011-Qopnwqiqfbd, Total; 046419-MTB-X (Total);205993-Deonx LDL-P; 458440-MHF Size; 156815-[place]-OR Scorewas developed and its performance characteristics determinedby Ginger SoftwareSaint John'S [facility]. It has not been cleared or approved by the Foodand Drug Administration.PATIENT WAS FASTINGPERFORMED BY: [address] [id number] BY: [facility] Nynhim9182 [facility] [id number] 05-22-2019 LP-IR Score 35 [facility] Work Phone: Comment on above: INSULIN RESISTANCE M ARKER <--Insulin Sensitive Insulin Resistant--> Percentile in Reference PopulationInsulin Resistance ScoreLP-IR Score Low 25th 50th 75th High <27 27 45 63 >63LP-IR Score is inaccurate if patient is non-fasting. .The LP-IR score is a laboratory developed index that has beenassociated with insulin resistance and diabetes risk and should beused as one component of a physician's clinical assessment. TheLP-IR score listed above has not been cleared by the [place] Food andDrug Administration. PATIENT WAS FASTINGP ERFORMED BY: [address] [id number] BY: [facility]bysLe[facility] Regional Medical CenterHrjwif9097 [facility] [id number] 04-05-2018 LP-IR Score 42 [facility] Work Phone: Comment on above: INSULIN RESISTANCE M ARKER <--Insulin Sensitive Insulin Resistant--> Percentile in Reference PopulationInsulin Resistance ScoreLP-IR Score Low 25th 50th 75th High <27 27 45 63 >63LP-IR Score is inaccurate if patient is non-fasting. .The LP-IR score is a laboratory developed index that has beenassociated with insulin resistance and diabetes risk and should beused as one component of a physician's clinical assessment. TheLP-IR score listed above has not been cleared by the [place] Food andDrug Administration. PATIENT WAS FASTINGP ERFORMED BY: [address] [id number] BY: BarnebysSt. Mary's HospitalFddthe1009 [facility] [id number] Clinical Notes 05-02-2023 to 07-03-2024 Telephone Encounter - Abhay Bowden MD - 07/03/2024 3:56 PM EDTTelephone Encounter - Abhay Bowden MD - 07/03/2024 3:56 PM EDT Note Date & Type Note Facility 07-03-2024 Telephone encount er Note Patient sent message that she's doing to have more cataract surgery--in the L eye. 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 Recommended she received the same--2 units of cryo. She will let her manager diabetes know. Abhay Bowden MD [facility] 07-03-2024 Miscellaneous Notes Formattin g of this note might be different from the original. Patient sent message that she's doing to have more cataract surgery--in the L eye. 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 Recommended she received the same--2 units of cryo. She will let her manager diabetes know. Abhay Bowden MD documented in this encounter [facility] 01-29-2024 Discharge summary Note Date/Time January 29, 2024 9:30am [facility] Physical Therapy [facility] [address] [place] [address]. [address] [place] [address] / REHABILITATION SERVICES DISCHARGE SUMMARY MR#: [id number] Acct: [id number] Name: ISRAEL BAILEY Rep #: [id number] : 1955 68 From: Cert. SEUN DiehlT, [facility] Referring : Status: REG RCR Insurance: MEDICARE PART A B [facility] Discharge Summary D/C summary: It has been my pleasure to treat ISRAEL BAILEY referred by JONELLE LAWSON, with the diagnosis of CERVICAL RADICULOPATHY RIGHT for a total of 10 visit(s). Discharge Date: 01/29/24 Please see the following information for a summary of their discharge status. 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 Pain Bilateral Neck: Pain Intensity (Out of 10): 2 Overall Improvement % Improvement: 50 Objective Objective/Function: POSTURE: mild thoracic kyphosis ,rounded shoulders head forward PALAPTION: tender UT/levator /occiput right> left NEURO: denies paresthesia/tingling AROM: BUE WFL MMT: BUE 4/5 except shoulders CERVICAL ROM: flexion WFL ,extension WFL ,lateral flexion/rotation min loss Goals Goal 1:: I with HEP for cervical spine Goal Progress: Goal Met Goal 2:: Patient demonstrates 50% improvement with less pain and and improved function Goal Progress: Goal Met Goal 3:: Patient to improve cervical ROM for function of recovery for ADLS and driving Goal Progress: Goal Met Goal 4:: Patient to improve neck oswestry score by 5 points to improve QOL and function Goal Progress: Goal Met Plan Plan: D/C TO HEP D/C Information Discharge Comments: HEP d/c sentence: If there are questions or concerns regarding this patient's physical therapy, please feel free to call me at [phone]. Thank you for the referral of thispatient. Sincerely, Higinio Fontana, PT, Cert MDT, OCS Balance/Gait/Functional tests Balance/Special Test Scores Oswestry Neck Score: 5 Improvement % Improvement: 50 <Electronically signed by Higinio Fontana PT, Cert. DINORAH, OCS> 01/29/24 0931 CC: JONELLE LAWSON; Dr. Iman Nazario, DO ~ SAILAJA Signed [facility] Work Phone: 1(226) 695-728208-09-2023 Discharge summary Author Lita Gardner [facility] May 02, 2023 10:28am Note Date/Time May 02, 2023 10: 28am [facility] [address] [place] [address] [address] [place] [address] / REHABILITATION SERVICES DISCHARGE SUMMARY MR#: [id number] Acct: [id number] Name: ISRAEL BAILEY Rep #: [id number] : 1955 67 From: Lita Denney Referring Dr.: Dr. Melo Huntley MD Status: REG RCR Insurance: MEDICARE PART A B [facility] Discharge Summary D/C summary: It has been my pleasure to treat ISRAEL BAILEY referred by Dr. Melo Huntley MD, with the diagnosis of Back pain for a total of 8 visit(s). Discharge Date: 05/02/23 Please see the following information for a summary of their discharge status. Subjective Subjective: Pt reports that if standing a lot by the end of the day she can tellshe is done. The stretches do help but it does come back. The pain is not constant anymore. Mornings and afternoons are ok but by evening she feels it. Pain LBP: Pain Intensity (Out of 10): 0 R leg pain: Pain Intensity (Out of 10): 0 Overall Improvement % Improvement: 80 Objective Objective/Function: Instructed pt in supine with green strap IT band stretch 30 sec X 3 and given as HEP Supine manual Piriformis stretch on the R 30 sec X 3.... great muscle length Bug X 10... pt was not keeping her back flat on the table so instead of 90/90 bug we went ahead and did bent knees to the table. Goals Goal 1:: I HEP Goal Progress: Goal Met Goal 2:: Decrease back and leg pain by 50% Goal Progress: Goal Met Goal 3:: No pain with stretching the R piriformis Goal Progress: Goal Met Plan Plan: DC PT to HEP D/C Information Discharge Comments: DC PT to HEP d/c sentence: If there are questions or concerns regarding this patient's physical therapy, please feel free to call me at [phone]. Thank you for the referral of thispatient. Sincerely, VENANCIO Harrell Balance/Gait/Functional tests Balance/Special Test Scores Oswestry Low Back Score: 4 <Electronically signed by Lita Gardner MPT> 05/02/23 1028 CC: Dr. Melo Huntley MD; Dr. 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 Degenerative spondylolisthesis acute [facility] Work Phone: evaluation noteNo assessment information available [facility] Work Phone: Evaluation note* Diagnosis Essential (primary) hypertension Unspecified essential hypertension documented in this encounter [facility] Work Phone: Hospital Discharge instructionsAmbulatory Orders* Pain Management Location: None Selected [facility] Work Phone: Instructions* Name Dates Details How to Access Health Informa tion Online using Patient Portal and behaview Apps Indication:Current smoker Start:01-Apr-2021 Instruction Type:Patient Education Patient Instructions Indication:Current smoker Start:01-Apr-2021 Instruction Type:Provider Instructions for Treatment How to access health informa tion online Indication:Current smoker Start:21-Nov-2019 Instruction Type:Patient Education How to access health informa tion online - Detail Indication:Current smoker Start:21-Nov-2019 Instruction Type:Patient Education Patient Instructions Indication:Current smoker Start:21-Nov-2019 Instruction Type:Provider Instructions for Treatment How to access health informa tion online Indication:Benign essential hypertension Start:22-May-2019 Instruction Type:Patient Education How to access health informa tion online - Detail Indication:Benign essential hypertension Start:22-May-2019 Instruction Type:Patient Education Patient Instructions Indication:Benign essential hypertension Start:22-May-2019 Instruction Type:Provider Instructions for Treatment How to access health informa tion online Indication:Body mass index (BMI) 23.0-23.9, adult Start:28-May-2018 Instruction Type:Patient Education How to access health informa tion online - Detail Indication:Body mass index (BMI) 23.0-23.9, adult Start:28-May-2018 Instruction Type:Patient Education Patient Instructions Indication:Body mass index (BMI) 23.0-23.9, adult Start:28-May-2018 Instruction Type:Provider Instructions for Treatment How to access health informa tion online Indication:Well woman exam with routine gynecological exam Start:12-Apr-2018 Instruction Type:Patient Education How to access health informa tion online - Detail Indication:Well woman exam with routine gynecological exam Start:12-Apr-2018 Instruction Type:Patient Education Patient Instructions Indication:Well woman exam with routine gynecological exam Start:12-Apr-2018 Instruction Type:Provider Instructions for Treatment How to access health informa tion online Indication:Current smoker Start:05-Apr-2018 Instruction Type:Patient Education How to access health informa tion online - Detail Indication:Current smoker Start:05-Apr-2018 Instruction Type:Patient Education Patient Instructions Indication:Current smoker Start:05-Apr-2018 Instruction Type:Provider Instructions for Treatment How to access health informa tion online Indication:Current smoker Start:11-Oct-2017 Instruction Type:Patient Education Patient Instructions Indication:Current smoker Start:11-Oct-2017 Instruction Type:Provider Instructions for Treatment How to access health informa tion online Indication:Body mass index (BMI) 23.0-23.9, adult Start:19-Sep-2017 Instruction Type:Patient Education How to access health informa tion online - Detail Indication:Body mass index (BMI) 23.0-23.9, adult Start:19-Sep-2017 Instruction Type:Patient Education Patient Instructions Indication:Body mass index (BMI) 23.0-23.9, adult Start:19-Sep-2017 Instruction Type:Provider Instructions for Treatment How to access health informa tion online Indication:Body mass index (BMI) 23.0-23.9, adult Start:28-Dec-2016 Instruction Type:Patient Education How to access health informa tion online - Detail Indication:Body mass index (BMI) 23.0-23.9, adult Start:28-Dec-2016 Instruction Type:Patient Education Patient Instructions Indication:Body mass index (BMI) 23.0-23.9, adult Start:28-Dec-2016 Instruction Type:Provider Instructions for Treatment How to access health informa tion online Indication:Pre-operative exam (Renamed from Encounter for pre-operative examination) Start:25-May-2016 Instruction Type:Patient Education How to access health informa tion online - Detail Indication:Pre-operative exam (Renamed from Encounter for pre-operative examination) Start:25-May-2016 Instruction Type:Patient Education Patient Instructions Indication:Pre-operative exam (Renamed from Encounter for pre-operative examination) Start:25-May-2016 Instruction Type:Provider Instructions for Treatment How to access health informa tion online Indication:Hyperlipidemia Start:11-Feb-2016 Instruction Type:Patient Education How to access health informa tion online - Detail Indication:Hyperlipidemia Start:11-Feb-2016 Instruction Type:Patient Education Patient Instructions Indication:Hyperlipidemia Start:11-Feb-2016 Instruction Type:Provider Instructions for Treatment How to access health informa tion online Indication:Neck pain Start:28-Dec-2015 Instruction Type:Patient Education How to access health informa tion online - Detail Indication:Neck pain Start:28-Dec-2015 Instruction Type:Patient Education Patient Instructions Indication:Neck pain Start:28-Dec-2015 Instruction Type:Provider Instructions for Treatment How to access health informa tion online Indication:Benign essential hypertension Start:06-Aug-2015 Instruction Type:Patient Education How to access health informa tion online - Detail Indication:Benign essential hypertension Start:06-Aug-2015 Instruction Type:Patient Education Patient Instructions Indication:Benign essential hypertension Start:06-Aug-2015 Instruction Type:Provider Instructions for Treatment Patient Instructions Indication:Well woman exam with routine gynecological exam Start:19-Feb-2015 Instruction Type:Provider Instructions for Treatment Patient Instructions Indication:Shoulder pain, left Start:09-Feb-2015 Instruction Type:Provider Instructions for Treatment Patient Instructions Indication:Screening for breast cancer Start:08-Jan-2015 Instruction Type:Provider Instructions for Treatment How to access health informa tion online Indication:Benign essential hypertension Start:04-Jun-2014 Instruction Type:Patient Education How to access health informa tion online - Detail Indication:Benign essential hypertension Start:04-Jun-2014 Instruction Type:Patient Education Patient Instructions Indication:Benign essential hypertension Start:04-Jun-2014 Instruction Type:Provider Instructions for Treatment Patient Instructions Indication:Benign essential hypertension Start:08-Jul-2013 Instruction Type:Provider Instructions for Treatment Patient Instructions Indication:Benign essential hypertension Start:07-Jan-2013 Instruction Type:Provider Instructions for Treatment Patient Instructions Indication:Hypercholesteremia Start:12-Jul-2012 Instruction Type:Provider Instructions for Treatment Patient Instructions Indication:Benign essential hypertension Start:09-Jul-2012 Instruction Type:Provider Instructions for Treatment [facility]; [facility] Work Phone: Instructions* Name Dates Details How to Access Health Informa tion Online using Patient Portal and 3rd Green Party Apps Indication:Current smoker Start:01-Apr-2021 Instruction Type:Patient Education Patient Instructions Indication:Current smoker Start:01-Apr-2021 Instruction Type:Provider Instructions for Treatment How to access health informa tion online Indication:Current smoker Start:21-Nov-2019 Instruction Type:Patient Education How to access health informa tion online - Detail Indication:Current smoker Start:21-Nov-2019 Instruction Type:Patient Education Patient Instructions Indication:Current smoker Start:21-Nov-2019 Instruction Type:Provider Instructions for Treatment How to access health informa tion online Indication:Benign essential hypertension Start:22-May-2019 Instruction Type:Patient Education How to access health informa tion online - Detail Indication:Benign essential hypertension Start:22-May-2019 Instruction Type:Patient Education Patient Instructions Indication:Benign essential hypertension Start:22-May-2019 Instruction Type:Provider Instructions for Treatment How to access health informa tion online Indication:Body mass index (BMI) 23.0-23.9, adult Start:28-May-2018 Instruction Type:Patient Education How to access health informa tion online - Detail Indication:Body mass index (BMI) 23.0-23.9, adult Start:28-May-2018 Instruction Type:Patient Education Patient Instructions Indication:Body mass index (BMI) 23.0-23.9, adult Start:28-May-2018 Instruction Type:Provider Instructions for Treatment How to access health informa tion online Indication:Well woman exam with routine gynecological exam Start:12-Apr-2018 Instruction Type:Patient Education How to access health informa tion online - Detail Indication:Well woman exam with routine gynecological exam Start:12-Apr-2018 Instruction Type:Patient Education Patient Instructions Indication:Well woman exam with routine gynecological exam Start:12-Apr-2018 Instruction Type:Provider Instructions for Treatment How to access health informa tion online Indication:Current smoker Start:05-Apr-2018 Instruction Type:Patient Education How to access health informa tion online - Detail Indication:Current smoker Start:05-Apr-2018 Instruction Type:Patient Education Patient Instructions Indication:Current smoker Start:05-Apr-2018 Instruction Type:Provider Instructions for Treatment How to access health informa tion online Indication:Current smoker Start:11-Oct-2017 Instruction Type:Patient Education Patient Instructions Indication:Current smoker Start:11-Oct-2017 Instruction Type:Provider Instructions for Treatment How to access health informa tion online Indication:Body mass index (BMI) 23.0-23.9, adult Start:19-Sep-2017 Instruction Type:Patient Education How to access health informa tion online - Detail Indication:Body mass index (BMI) 23.0-23.9, adult Start:19-Sep-2017 Instruction Type:Patient Education Patient Instructions Indication:Body mass index (BMI) 23.0-23.9, adult Start:19-Sep-2017 Instruction Type:Provider Instructions for Treatment How to access health informa tion online Indication:Body mass index (BMI) 23.0-23.9, adult Start:28-Dec-2016 Instruction Type:Patient Education How to access health informa tion online - Detail Indication:Body mass index (BMI) 23.0-23.9, adult Start:28-Dec-2016 Instruction Type:Patient Education Patient Instructions Indication:Body mass index (BMI) 23.0-23.9, adult Start:28-Dec-2016 Instruction Type:Provider Instructions for Treatment How to access health informa tion online Indication:Pre-operative exam (Renamed from Encounter for pre-operative examination) Start:25-May-2016 Instruction Type:Patient Education How to access health informa tion online - Detail Indication:Pre-operative exam (Renamed from Encounter for pre-operative examination) Start:25-May-2016 Instruction Type:Patient Education Patient Instructions Indication:Pre-operative exam (Renamed from Encounter for pre-operative examination) Start:25-May-2016 Instruction Type:Provider Instructions for Treatment How to access health informa tion online Indication:Hyperlipidemia Start:11-Feb-2016 Instruction Type:Patient Education How to access health informa tion online - Detail Indication:Hyperlipidemia Start:11-Feb-2016 Instruction Type:Patient Education Patient Instructions Indication:Hyperlipidemia Start:11-Feb-2016 Instruction Type:Provider Instructions for Treatment How to access health informa tion online Indication:Neck pain Start:28-Dec-2015 Instruction Type:Patient Education How to access health informa tion online - Detail Indication:Neck pain Start:28-Dec-2015 Instruction Type:Patient Education Patient Instructions Indication:Neck pain Start:28-Dec-2015 Instruction Type:Provider Instructions for Treatment How to access health informa tion online Indication:Benign essential hypertension Start:06-Aug-2015 Instruction Type:Patient Education How to access health informa tion online - Detail Indication:Benign essential hypertension Start:06-Aug-2015 Instruction Type:Patient Education Patient Instructions Indication:Benign essential hypertension Start:06-Aug-2015 Instruction Type:Provider Instructions for Treatment Patient Instructions Indication:Well woman exam with routine gynecological exam Start:19-Feb-2015 Instruction Type:Provider Instructions for Treatment Patient Instructions Indication:Shoulder pain, left Start:09-Feb-2015 Instruction Type:Provider Instructions for Treatment Patient Instructions Indication:Screening for breast cancer Start:08-Jan-2015 Instruction Type:Provider Instructions for Treatment How to access health informa tion online Indication:Benign essential hypertension Start:04-Jun-2014 Instruction Type:Patient Education How to access health informa tion online - Detail Indication:Benign essential hypertension Start:04-Jun-2014 Instruction Type:Patient Education Patient Instructions Indication:Benign essential hypertension Start:04-Jun-2014 Instruction Type:Provider Instructions for Treatment Patient Instructions Indication:Benign essential hypertension Start:08-Jul-2013 Instruction Type:Provider Instructions for Treatment Patient Instructions Indication:Benign essential hypertension Start:07-Jan-2013 Instruction Type:Provider Instructions for Treatment Patient Instructions Indication:Hypercholesteremia Start:12-Jul-2012 Instruction Type:Provider Instructions for Treatment Patient Instructions Indication:Benign essential hypertension Start:09-Jul-2012 Instruction Type:Provider Instructions for Treatment [facility]; [facility] Work Phone: Instructions* Name Dates Details Patient Instructions Indication:Parotid sialolithiasis Start:01-Jul-2021 Instruction Type:Provider Instructions for Treatment How to Access Health Informa tion Online using Patient Portal and [employer] Apps Indication:Parotid sialolithiasis Start:01-Jul-2021 Instruction Type:Patient Education How to Access Health Informa tion Online using Patient Portal and [employer] Apps Indication:Current smoker Start:01-Apr-2021 Instruction Type:Patient Education Patient Instructions Indication:Current smoker Start:01-Apr-2021 Instruction Type:Provider Instructions for Treatment How to access health informa tion online Indication:Current smoker Start:21-Nov-2019 Instruction Type:Patient Education How to access health informa tion online - Detail Indication:Current smoker Start:21-Nov-2019 Instruction Type:Patient Education Patient Instructions Indication:Current smoker Start:21-Nov-2019 Instruction Type:Provider Instructions for Treatment How to access health informa tion online Indication:Benign essential hypertension Start:22-May-2019 Instruction Type:Patient Education How to access health informa tion online - Detail Indication:Benign essential hypertension Start:22-May-2019 Instruction Type:Patient Education Patient Instructions Indication:Benign essential hypertension Start:22-May-2019 Instruction Type:Provider Instructions for Treatment How to access health informa tion online Indication:Body mass index (BMI) 23.0-23.9, adult Start:28-May-2018 Instruction Type:Patient Education How to access health informa tion online - Detail Indication:Body mass index (BMI) 23.0-23.9, adult Start:28-May-2018 Instruction Type:Patient Education Patient Instructions Indication:Body mass index (BMI) 23.0-23.9, adult Start:28-May-2018 Instruction Type:Provider Instructions for Treatment How to access health informa tion online Indication:Well woman exam with routine gynecological exam Start:12-Apr-2018 Instruction Type:Patient Education How to access health informa tion online - Detail Indication:Well woman exam with routine gynecological exam Start:12-Apr-2018 Instruction Type:Patient Education Patient Instructions Indication:Well woman exam with routine gynecological exam Start:12-Apr-2018 Instruction Type:Provider Instructions for Treatment How to access health informa tion online Indication:Current smoker Start:05-Apr-2018 Instruction Type:Patient Education How to access health informa tion online - Detail Indication:Current smoker Start:05-Apr-2018 Instruction Type:Patient Education Patient Instructions Indication:Current smoker Start:05-Apr-2018 Instruction Type:Provider Instructions for Treatment How to access health informa tion online Indication:Current smoker Start:11-Oct-2017 Instruction Type:Patient Education Patient Instructions Indication:Current smoker Start:11-Oct-2017 Instruction Type:Provider Instructions for Treatment How to access health informa tion online Indication:Body mass index (BMI) 23.0-23.9, adult Start:19-Sep-2017 Instruction Type:Patient Education How to access health informa tion online - Detail Indication:Body mass index (BMI) 23.0-23.9, adult Start:19-Sep-2017 Instruction Type:Patient Education Patient Instructions Indication:Body mass index (BMI) 23.0-23.9, adult Start:19-Sep-2017 Instruction Type:Provider Instructions for Treatment How to access health informa tion online Indication:Body mass index (BMI) 23.0-23.9, adult Start:28-Dec-2016 Instruction Type:Patient Education How to access health informa tion online - Detail Indication:Body mass index (BMI) 23.0-23.9, adult Start:28-Dec-2016 Instruction Type:Patient Education Patient Instructions Indication:Body mass index (BMI) 23.0-23.9, adult Start:28-Dec-2016 Instruction Type:Provider Instructions for Treatment How to access health informa tion online Indication:Pre-operative exam (Renamed from Encounter for pre-operative examination) Start:25-May-2016 Instruction Type:Patient Education How to access health informa tion online - Detail Indication:Pre-operative exam (Renamed from Encounter for pre-operative examination) Start:25-May-2016 Instruction Type:Patient Education Patient Instructions Indication:Pre-operative exam (Renamed from Encounter for pre-operative examination) Start:25-May-2016 Instruction Type:Provider Instructions for Treatment How to access health informa tion online Indication:Hyperlipidemia Start:11-Feb-2016 Instruction Type:Patient Education How to access health informa tion online - Detail Indication:Hyperlipidemia Start:11-Feb-2016 Instruction Type:Patient Education Patient Instructions Indication:Hyperlipidemia Start:11-Feb-2016 Instruction Type:Provider Instructions for Treatment How to access health informa tion online Indication:Neck pain Start:28-Dec-2015 Instruction Type:Patient Education How to access health informa tion online - Detail Indication:Neck pain Start:28-Dec-2015 Instruction Type:Patient Education Patient Instructions Indication:Neck pain Start:28-Dec-2015 Instruction Type:Provider Instructions for Treatment How to access health informa tion online Indication:Benign essential hypertension Start:06-Aug-2015 Instruction Type:Patient Education How to access health informa tion online - Detail Indication:Benign essential hypertension Start:06-Aug-2015 Instruction Type:Patient Education Patient Instructions Indication:Benign essential hypertension Start:06-Aug-2015 Instruction Type:Provider Instructions for Treatment Patient Instructions Indication:Well woman exam with routine gynecological exam Start:19-Feb-2015 Instruction Type:Provider Instructions for Treatment Patient Instructions Indication:Shoulder pain, left Start:09-Feb-2015 Instruction Type:Provider Instructions for Treatment Patient Instructions Indication:Screening for breast cancer Start:08-Jan-2015 Instruction Type:Provider Instructions for Treatment How to access health informa tion online Indication:Benign essential hypertension Start:04-Jun-2014 Instruction Type:Patient Education How to access health informa tion online - Detail Indication:Benign essential hypertension Start:04-Jun-2014 Instruction Type:Patient Education Patient Instructions Indication:Benign essential hypertension Start:04-Jun-2014 Instruction Type:Provider Instructions for Treatment Patient Instructions Indication:Benign essential hypertension Start:08-Jul-2013 Instruction Type:Provider Instructions for Treatment Patient Instructions Indication:Benign essential hypertension Start:07-Jan-2013 Instruction Type:Provider Instructions for Treatment Patient Instructions Indication:Hypercholesteremia Start:12-Jul-2012 Instruction Type:Provider Instructions for Treatment Patient Instructions Indication:Benign essential hypertension Start:09-Jul-2012 Instruction Type:Provider Instructions for Treatment [facility]; [facility] Work Phone: Instructions* Name Dates Details Patient Instructions Indication:Parotid sialolithiasis Start:01-Jul-2021 Instruction Type:Provider Instructions for Treatment How to Access Health Informa tion Online using Patient Portal and [employer] Apps Indication:Parotid sialolithiasis Start:01-Jul-2021 Instruction Type:Patient Education How to Access Health Informa tion Online using Patient Portal and [employer]iew Apps Indication:Current smoker Start:01-Apr-2021 Instruction Type:Patient Education Patient Instructions Indication:Current smoker Start:01-Apr-2021 Instruction Type:Provider Instructions for Treatment How to access health informa tion online Indication:Current smoker Start:21-Nov-2019 Instruction Type:Patient Education How to access health informa tion online - Detail Indication:Current smoker Start:21-Nov-2019 Instruction Type:Patient Education Patient Instructions Indication:Current smoker Start:21-Nov-2019 Instruction Type:Provider Instructions for Treatment How to access health informa tion online Indication:Benign essential hypertension Start:22-May-2019 Instruction Type:Patient Education How to access health informa tion online - Detail Indication:Benign essential hypertension Start:22-May-2019 Instruction Type:Patient Education Patient Instructions Indication:Benign essential hypertension Start:22-May-2019 Instruction Type:Provider Instructions for Treatment How to access health informa tion online Indication:Body mass index (BMI) 23.0-23.9, adult Start:4-Sep-2018 Instruction Type:Patient Education How to access health informa tion online - Detail Indication:Body mass index (BMI) 23.0-23.9, adult Start:28-May-2018 Instruction Type:Patient Education Patient Instructions Indication:Body mass index (BMI) 23.0-23.9, adult Start:28-May-2018 Instruction Type:Provider Instructions for Treatment How to access health informa tion online Indication:Well woman exam with routine gynecological exam Start:12-Apr-2018 Instruction Type:Patient Education How to access health informa tion online - Detail Indication:Well woman exam with routine gynecological exam Start:12-Apr-2018 Instruction Type:Patient Education Patient Instructions Indication:Well woman exam with routine gynecological exam Start:12-Apr-2018 Instruction Type:Provider Instructions for Treatment How to access health informa tion online Indication:Current smoker Start:05-Apr-2018 Instruction Type:Patient Education How to access health informa tion online - Detail Indication:Current smoker Start:05-Apr-2018 Instruction Type:Patient Education Patient Instructions Indication:Current smoker Start:05-Apr-2018 Instruction Type:Provider Instructions for Treatment How to access health informa tion online Indication:Current smoker Start:11-Oct-2017 Instruction Type:Patient Education Patient Instructions Indication:Current smoker Start:11-Oct-2017 Instruction Type:Provider Instructions for Treatment How to access health informa tion online Indication:Body mass index (BMI) 23.0-23.9, adult Start:19-Sep-2017 Instruction Type:Patient Education How to access health informa tion online - Detail Indication:Body mass index (BMI) 23.0-23.9, adult Start:19-Sep-2017 Instruction Type:Patient Education Patient Instructions Indication:Body mass index (BMI) 23.0-23.9, adult Start:19-Sep-2017 Instruction Type:Provider Instructions for Treatment How to access health informa tion online Indication:Body mass index (BMI) 23.0-23.9, adult Start:28-Dec-2016 Instruction Type:Patient Education How to access health informa tion online - Detail Indication:Body mass index (BMI) 23.0-23.9, adult Start:28-Dec-2016 Instruction Type:Patient Education Patient Instructions Indication:Body mass index (BMI) 23.0-23.9, adult Start:28-Dec-2016 Instruction Type:Provider Instructions for Treatment How to access health informa tion online Indication:Pre-operative exam (Renamed from Encounter for pre-operative examination) Start:25-May-2016 Instruction Type:Patient Education How to access health informa tion online - Detail Indication:Pre-operative exam (Renamed from Encounter for pre-operative examination) Start:25-May-2016 Instruction Type:Patient Education Patient Instructions Indication:Pre-operative exam (Renamed from Encounter for pre-operative examination) Start:25-May-2016 Instruction Type:Provider Instructions for Treatment How to access health informa tion online Indication:Hyperlipidemia Start:11-Feb-2016 Instruction Type:Patient Education How to access health informa tion online - Detail Indication:Hyperlipidemia Start:11-Feb-2016 Instruction Type:Patient Education Patient Instructions Indication:Hyperlipidemia Start:11-Feb-2016 Instruction Type:Provider Instructions for Treatment How to access health informa tion online Indication:Neck pain Start:28-Dec-2015 Instruction Type:Patient Education How to access health informa tion online - Detail Indication:Neck pain Start:28-Dec-2015 Instruction Type:Patient Education Patient Instructions Indication:Neck pain Start:28-Dec-2015 Instruction Type:Provider Instructions for Treatment How to access health informa tion online Indication:Benign essential hypertension Start:06-Aug-2015 Instruction Type:Patient Education How to access health informa tion online - Detail Indication:Benign essential hypertension Start:06-Aug-2015 Instruction Type:Patient Education Patient Instructions Indication:Benign essential hypertension Start:06-Aug-2015 Instruction Type:Provider Instructions for Treatment Patient Instructions Indication:Well woman exam with routine gynecological exam Start:19-Feb-2015 Instruction Type:Provider Instructions for Treatment Patient Instructions Indication:Shoulder pain, left Start:09-Feb-2015 Instruction Type:Provider Instructions for Treatment Patient Instructions Indication:Screening for breast cancer Start:08-Jan-2015 Instruction Type:Provider Instructions for Treatment How to access health informa tion online Indication:Benign essential hypertension Start:04-Jun-2014 Instruction Type:Patient Education How to access health informa tion online - Detail Indication:Benign essential hypertension Start:04-Jun-2014 Instruction Type:Patient Education Patient Instructions Indication:Benign essential hypertension Start:04-Jun-2014 Instruction Type:Provider Instructions for Treatment Patient Instructions Indication:Benign essential hypertension Start:08-Jul-2013 Instruction Type:Provider Instructions for Treatment Patient Instructions Indication:Benign essential hypertension Start:07-Jan-2013 Instruction Type:Provider Instructions for Treatment Patient Instructions Indication:Hypercholesteremia Start:12-Jul-2012 Instruction Type:Provider Instructions for Treatment Patient Instructions Indication:Benign essential hypertension Start:09-Jul-2012 Instruction Type:Provider Instructions for Treatment [facility]; [facility] Work Phone: Instructions* Name Dates Details Patient Instructions Indication:Former smoker, stopped smoking in distant past Start:28-Apr-2022 Instruction Type:Provider Instructions for Treatment How to Access Health Informa tion Online using Patient Portal and [employer]iew Apps Indication:Former smoker, stopped smoking in distant past Start:28-Apr-2022 Instruction Type:Patient Education Patient Instructions Indication:Former smoker, stopped smoking in distant past Start:04-Jan-2022 Instruction Type:Provider Instructions for Treatment How to Access Health Informa tion Online using Patient Portal and [employer]iew Apps Indication:Former smoker, stopped smoking in distant past Start:04-Jan-2022 Instruction Type:Patient Education Patient Instructions Indication:Parotid sialolithiasis Start:01-Jul-2021 Instruction Type:Provider Instructions for Treatment How to Access Health Informa tion Online using Patient Portal and [employer] Apps Indication:Parotid sialolithiasis Start:01-Jul-2021 Instruction Type:Patient Education How to Access Health Informa tion Online using Patient Portal and behaview Apps Indication:Current smoker Start:01-Apr-2021 Instruction Type:Patient Education Patient Instructions Indication:Current smoker Start:01-Apr-2021 Instruction Type:Provider Instructions for Treatment How to access health informa tion online Indication:Current smoker Start:21-Nov-2019 Instruction Type:Patient Education How to access health informa tion online - Detail Indication:Current smoker Start:21-Nov-2019 Instruction Type:Patient Education Patient Instructions Indication:Current smoker Start:21-Nov-2019 Instruction Type:Provider Instructions for Treatment How to access health informa tion online Indication:Benign essential hypertension Start:22-May-2019 Instruction Type:Patient Education How to access health informa tion online - Detail Indication:Benign essential hypertension Start:22-May-2019 Instruction Type:Patient Education Patient Instructions Indication:Benign essential hypertension Start:22-May-2019 Instruction Type:Provider Instructions for Treatment How to access health informa tion online Indication:Body mass index (BMI) 23.0-23.9, adult Start:28-May-2018 Instruction Type:Patient Education How to access health informa tion online - Detail Indication:Body mass index (BMI) 23.0-23.9, adult Start:28-May-2018 Instruction Type:Patient Education Patient Instructions Indication:Body mass index (BMI) 23.0-23.9, adult Start:28-May-2018 Instruction Type:Provider Instructions for Treatment How to access health informa tion online Indication:Well woman exam with routine gynecological exam Start:12-Apr-2018 Instruction Type:Patient Education How to access health informa tion online - Detail Indication:Well woman exam with routine gynecological exam Start:12-Apr-2018 Instruction Type:Patient Education Patient Instructions Indication:Well woman exam with routine gynecological exam Start:12-Apr-2018 Instruction Type:Provider Instructions for Treatment How to access health informa tion online Indication:Current smoker Start:05-Apr-2018 Instruction Type:Patient Education How to access health informa tion online - Detail Indication:Current smoker Start:05-Apr-2018 Instruction Type:Patient Education Patient Instructions Indication:Current smoker Start:05-Apr-2018 Instruction Type:Provider Instructions for Treatment How to access health informa tion online Indication:Current smoker Start:11-Oct-2017 Instruction Type:Patient Education Patient Instructions Indication:Current smoker Start:11-Oct-2017 Instruction Type:Provider Instructions for Treatment How to access health informa tion online Indication:Body mass index (BMI) 23.0-23.9, adult Start:19-Sep-2017 Instruction Type:Patient Education How to access health informa tion online - Detail Indication:Body mass index (BMI) 23.0-23.9, adult Start:19-Sep-2017 Instruction Type:Patient Education Patient Instructions Indication:Body mass index (BMI) 23.0-23.9, adult Start:19-Sep-2017 Instruction Type:Provider Instructions for Treatment How to access health informa tion online Indication:Body mass index (BMI) 23.0-23.9, adult Start:28-Dec-2016 Instruction Type:Patient Education How to access health informa tion online - Detail Indication:Body mass index (BMI) 23.0-23.9, adult Start:28-Dec-2016 Instruction Type:Patient Education Patient Instructions Indication:Body mass index (BMI) 23.0-23.9, adult Start:28-Dec-2016 Instruction Type:Provider Instructions for Treatment How to access health informa tion online Indication:Pre-operative exam (Renamed from Encounter for pre-operative examination) Start:25-May-2016 Instruction Type:Patient Education How to access health informa tion online - Detail Indication:Pre-operative exam (Renamed from Encounter for pre-operative examination) Start:25-May-2016 Instruction Type:Patient Education Patient Instructions Indication:Pre-operative exam (Renamed from Encounter for pre-operative examination) Start:25-May-2016 Instruction Type:Provider Instructions for Treatment How to access health informa tion online Indication:Hyperlipidemia Start:11-Feb-2016 Instruction Type:Patient Education How to access health informa tion online - Detail Indication:Hyperlipidemia Start:11-Feb-2016 Instruction Type:Patient Education Patient Instructions Indication:Hyperlipidemia Start:11-Feb-2016 Instruction Type:Provider Instructions for Treatment How to access health informa tion online Indication:Neck pain Start:28-Dec-2015 Instruction Type:Patient Education How to access health informa tion online - Detail Indication:Neck pain Start:28-Dec-2015 Instruction Type:Patient Education Patient Instructions Indication:Neck pain Start:28-Dec-2015 Instruction Type:Provider Instructions for Treatment How to access health informa tion online Indication:Benign essential hypertension Start:06-Aug-2015 Instruction Type:Patient Education How to access health informa tion online - Detail Indication:Benign essential hypertension Start:06-Aug-2015 Instruction Type:Patient Education Patient Instructions Indication:Benign essential hypertension Start:06-Aug-2015 Instruction Type:Provider Instructions for Treatment Patient Instructions Indication:Well woman exam with routine gynecological exam Start:19-Feb-2015 Instruction Type:Provider Instructions for Treatment Patient Instructions Indication:Shoulder pain, left Start:09-Feb-2015 Instruction Type:Provider Instructions for Treatment Patient Instructions Indication:Screening for breast cancer Start:08-Jan-2015 Instruction Type:Provider Instructions for Treatment How to access health informa tion online Indication:Benign essential hypertension Start:04-Jun-2014 Instruction Type:Patient Education How to access health informa tion online - Detail Indication:Benign essential hypertension Start:04-Jun-2014 Instruction Type:Patient Education Patient Instructions Indication:Benign essential hypertension Start:04-Jun-2014 Instruction Type:Provider Instructions for Treatment Patient Instructions Indication:Benign essential hypertension Start:08-Jul-2013 Instruction Type:Provider Instructions for Treatment Patient Instructions Indication:Benign essential hypertension Start:07-Jan-2013 Instruction Type:Provider Instructions for Treatment Patient Instructions Indication:Hypercholesteremia Start:12-Jul-2012 Instruction Type:Provider Instructions for Treatment Patient Instructions Indication:Benign essential hypertension Start:09-Jul-2012 Instruction Type:Provider Instructions for Treatment [facility]; [facility] Work Phone: Instructions* Name Dates Details Patient Instructions Indication:Former smoker, stopped smoking in distant past Start:28-Apr-2022 Instruction Type:Provider Instructions for Treatment How to Access Health Informa tion Online using Patient Portal and [employer] Apps Indication:Former smoker, stopped smoking in distant past Start:28-Apr-2022 Instruction Type:Patient Education Patient Instructions Indication:Former smoker, stopped smoking in distant past Start:04-Jan-2022 Instruction Type:Provider Instructions for Treatment How to Access Health Informa tion Online using Patient Portal and [employer] Indication:Former smoker, stopped smoking in distant past Start:04-Jan-2022 Instruction Type:Patient Education Patient Instructions Indication:Parotid sialolithiasis Start:01-Jul-2021 Instruction Type:Provider Instructions for Treatment How to Access Health Informa tion Online using Patient Portal and [employer] Indication:Parotid sialolithiasis Start:01-Jul-2021 Instruction Type:Patient Education How to Access Health Informa tion Online using Patient Portal and [employer] Apps Indication:Current smoker Start:01-Apr-2021 Instruction Type:Patient Education Patient Instructions Indication:Current smoker Start:01-Apr-2021 Instruction Type:Provider Instructions for Treatment How to access health informa tion online Indication:Current smoker Start:21-Nov-2019 Instruction Type:Patient Education How to access health informa tion online - Detail Indication:Current smoker Start:21-Nov-2019 Instruction Type:Patient Education Patient Instructions Indication:Current smoker Start:21-Nov-2019 Instruction Type:Provider Instructions for Treatment How to access health informa tion online Indication:Benign essential hypertension Start:22-May-2019 Instruction Type:Patient Education How to access health informa tion online - Detail Indication:Benign essential hypertension Start:22-May-2019 Instruction Type:Patient Education Patient Instructions Indication:Benign essential hypertension Start:22-May-2019 Instruction Type:Provider Instructions for Treatment How to access health informa tion online Indication:Body mass index (BMI) 23.0-23.9, adult Start:28-May-2018 Instruction Type:Patient Education How to access health informa tion online - Detail Indication:Body mass index (BMI) 23.0-23.9, adult Start:28-May-2018 Instruction Type:Patient Education Patient Instructions Indication:Body mass index (BMI) 23.0-23.9, adult Start:28-May-2018 Instruction Type:Provider Instructions for Treatment How to access health informa tion online Indication:Well woman exam with routine gynecological exam Start:12-Apr-2018 Instruction Type:Patient Education How to access health informa tion online - Detail Indication:Well woman exam with routine gynecological exam Start:12-Apr-2018 Instruction Type:Patient Education Patient Instructions Indication:Well woman exam with routine gynecological exam Start:12-Apr-2018 Instruction Type:Provider Instructions for Treatment How to access health informa tion online Indication:Current smoker Start:05-Apr-2018 Instruction Type:Patient Education How to access health informa tion online - Detail Indication:Current smoker Start:05-Apr-2018 Instruction Type:Patient Education Patient Instructions Indication:Current smoker Start:05-Apr-2018 Instruction Type:Provider Instructions for Treatment How to access health informa tion online Indication:Current smoker Start:11-Oct-2017 Instruction Type:Patient Education Patient Instructions Indication:Current smoker Start:11-Oct-2017 Instruction Type:Provider Instructions for Treatment How to access health informa tion online Indication:Body mass index (BMI) 23.0-23.9, adult Start:19-Sep-2017 Instruction Type:Patient Education How to access health informa tion online - Detail Indication:Body mass index (BMI) 23.0-23.9, adult Start:19-Sep-2017 Instruction Type:Patient Education Patient Instructions Indication:Body mass index (BMI) 23.0-23.9, adult Start:19-Sep-2017 Instruction Type:Provider Instructions for Treatment How to access health informa tion online Indication:Body mass index (BMI) 23.0-23.9, adult Start:28-Dec-2016 Instruction Type:Patient Education How to access health informa tion online - Detail Indication:Body mass index (BMI) 23.0-23.9, adult Start:28-Dec-2016 Instruction Type:Patient Education Patient Instructions Indication:Body mass index (BMI) 23.0-23.9, adult Start:28-Dec-2016 Instruction Type:Provider Instructions for Treatment How to access health informa tion online Indication:Pre-operative exam (Renamed from Encounter for pre-operative examination) Start:25-May-2016 Instruction Type:Patient Education How to access health informa tion online - Detail Indication:Pre-operative exam (Renamed from Encounter for pre-operative examination) Start:25-May-2016 Instruction Type:Patient Education Patient Instructions Indication:Pre-operative exam (Renamed from Encounter for pre-operative examination) Start:25-May-2016 Instruction Type:Provider Instructions for Treatment How to access health informa tion online Indication:Hyperlipidemia Start:11-Feb-2016 Instruction Type:Patient Education How to access health informa tion online - Detail Indication:Hyperlipidemia Start:11-Feb-2016 Instruction Type:Patient Education Patient Instructions Indication:Hyperlipidemia Start:11-Feb-2016 Instruction Type:Provider Instructions for Treatment How to access health informa tion online Indication:Neck pain Start:28-Dec-2015 Instruction Type:Patient Education How to access health informa tion online - Detail Indication:Neck pain Start:28-Dec-2015 Instruction Type:Patient Education Patient Instructions Indication:Neck pain Start:28-Dec-2015 Instruction Type:Provider Instructions for Treatment How to access health informa tion online Indication:Benign essential hypertension Start:06-Aug-2015 Instruction Type:Patient Education How to access health informa tion online - Detail Indication:Benign essential hypertension Start:06-Aug-2015 Instruction Type:Patient Education Patient Instructions Indication:Benign essential hypertension Start:06-Aug-2015 Instruction Type:Provider Instructions for Treatment Patient Instructions Indication:Well woman exam with routine gynecological exam Start:19-Feb-2015 Instruction Type:Provider Instructions for Treatment Patient Instructions Indication:Shoulder pain, left Start:09-Feb-2015 Instruction Type:Provider Instructions for Treatment Patient Instructions Indication:Screening for breast cancer Start:08-Jan-2015 Instruction Type:Provider Instructions for Treatment How to access health informa tion online Indication:Benign essential hypertension Start:04-Jun-2014 Instruction Type:Patient Education How to access health informa tion online - Detail Indication:Benign essential hypertension Start:04-Jun-2014 Instruction Type:Patient Education Patient Instructions Indication:Benign essential hypertension Start:04-Jun-2014 Instruction Type:Provider Instructions for Treatment Patient Instructions Indication:Benign essential hypertension Start:08-Jul-2013 Instruction Type:Provider Instructions for Treatment Patient Instructions Indication:Benign essential hypertension Start:07-Jan-2013 Instruction Type:Provider Instructions for Treatment Patient Instructions Indication:Hypercholesteremia Start:12-Jul-2012 Instruction Type:Provider Instructions for Treatment Patient Instructions Indication:Benign essential hypertension Start:09-Jul-2012 Instruction Type:Provider Instructions for Treatment [facility]; [facility] Work Phone: Instructions* Name Dates Details Patient Instructions Indication:Former smoker, stopped smoking in distant past Start:07-Jul-2022 Instruction Type:Provider Instructions for Treatment How to Access Health Informa tion Online using Patient Portal and [employer] Apps Indication:Former smoker, stopped smoking in distant past Start:07-Jul-2022 Instruction Type:Patient Education Patient Instructions Indication:Former smoker, stopped smoking in distant past Start:28-Apr-2022 Instruction Type:Provider Instructions for Treatment How to Access Health Informa tion Online using Patient Portal and [employer] Indication:Former smoker, stopped smoking in distant past Start:28-Apr-2022 Instruction Type:Patient Education Patient Instructions Indication:Former smoker, stopped smoking in distant past Start:04-Jan-2022 Instruction Type:Provider Instructions for Treatment How to Access Health Informa tion Online using Patient Portal and [employer] Apps Indication:Former smoker, stopped smoking in distant past Start:04-Jan-2022 Instruction Type:Patient Education Patient Instructions Indication:Parotid sialolithiasis Start:01-Jul-2021 Instruction Type:Provider Instructions for Treatment How to Access Health Informa tion Online using Patient Portal and [employer] Apps Indication:Parotid sialolithiasis Start:01-Jul-2021 Instruction Type:Patient Education How to Access Health Informa tion Online using Patient Portal and [employer] Apps Indication:Current smoker Start:01-Apr-2021 Instruction Type:Patient Education Patient Instructions Indication:Current smoker Start:01-Apr-2021 Instruction Type:Provider Instructions for Treatment How to access health informa tion online Indication:Current smoker Start:21-Nov-2019 Instruction Type:Patient Education How to access health informa tion online - Detail Indication:Current smoker Start:21-Nov-2019 Instruction Type:Patient Education Patient Instructions Indication:Current smoker Start:21-Nov-2019 Instruction Type:Provider Instructions for Treatment How to access health informa tion online Indication:Benign essential hypertension Start:22-May-2019 Instruction Type:Patient Education How to access health informa tion online - Detail Indication:Benign essential hypertension Start:22-May-2019 Instruction Type:Patient Education Patient Instructions Indication:Benign essential hypertension Start:22-May-2019 Instruction Type:Provider Instructions for Treatment How to access health informa tion online Indication:Body mass index (BMI) 23.0-23.9, adult Start:28-May-2018 Instruction Type:Patient Education How to access health informa tion online - Detail Indication:Body mass index (BMI) 23.0-23.9, adult Start:28-May-2018 Instruction Type:Patient Education Patient Instructions Indication:Body mass index (BMI) 23.0-23.9, adult Start:28-May-2018 Instruction Type:Provider Instructions for Treatment How to access health informa tion online Indication:Well woman exam with routine gynecological exam Start:12-Apr-2018 Instruction Type:Patient Education How to access health informa tion online - Detail Indication:Well woman exam with routine gynecological exam Start:12-Apr-2018 Instruction Type:Patient Education Patient Instructions Indication:Well woman exam with routine gynecological exam Start:12-Apr-2018 Instruction Type:Provider Instructions for Treatment How to access health informa tion online Indication:Current smoker Start:05-Apr-2018 Instruction Type:Patient Education How to access health informa tion online - Detail Indication:Current smoker Start:05-Apr-2018 Instruction Type:Patient Education Patient Instructions Indication:Current smoker Start:05-Apr-2018 Instruction Type:Provider Instructions for Treatment How to access health informa tion online Indication:Current smoker Start:11-Oct-2017 Instruction Type:Patient Education Patient Instructions Indication:Current smoker Start:11-Oct-2017 Instruction Type:Provider Instructions for Treatment How to access health informa tion online Indication:Body mass index (BMI) 23.0-23.9, adult Start:19-Sep-2017 Instruction Type:Patient Education How to access health informa tion online - Detail Indication:Body mass index (BMI) 23.0-23.9, adult Start:19-Sep-2017 Instruction Type:Patient Education Patient Instructions Indication:Body mass index (BMI) 23.0-23.9, adult Start:19-Sep-2017 Instruction Type:Provider Instructions for Treatment How to access health informa tion online Indication:Body mass index (BMI) 23.0-23.9, adult Start:28-Dec-2016 Instruction Type:Patient Education How to access health informa tion online - Detail Indication:Body mass index (BMI) 23.0-23.9, adult Start:28-Dec-2016 Instruction Type:Patient Education Patient Instructions Indication:Body mass index (BMI) 23.0-23.9, adult Start:28-Dec-2016 Instruction Type:Provider Instructions for Treatment How to access health informa tion online Indication:Pre-operative exam (Renamed from Encounter for pre-operative examination) Start:25-May-2016 Instruction Type:Patient Education How to access health informa tion online - Detail Indication:Pre-operative exam (Renamed from Encounter for pre-operative examination) Start:25-May-2016 Instruction Type:Patient Education Patient Instructions Indication:Pre-operative exam (Renamed from Encounter for pre-operative examination) Start:25-May-2016 Instruction Type:Provider Instructions for Treatment How to access health informa tion online Indication:Hyperlipidemia Start:11-Feb-2016 Instruction Type:Patient Education How to access health informa tion online - Detail Indication:Hyperlipidemia Start:11-Feb-2016 Instruction Type:Patient Education Patient Instructions Indication:Hyperlipidemia Start:11-Feb-2016 Instruction Type:Provider Instructions for Treatment How to access health informa tion online Indication:Neck pain Start:28-Dec-2015 Instruction Type:Patient Education How to access health informa tion online - Detail Indication:Neck pain Start:28-Dec-2015 Instruction Type:Patient Education Patient Instructions Indication:Neck pain Start:28-Dec-2015 Instruction Type:Provider Instructions for Treatment How to access health informa tion online Indication:Benign essential hypertension Start:06-Aug-2015 Instruction Type:Patient Education How to access health informa tion online - Detail Indication:Benign essential hypertension Start:06-Aug-2015 Instruction Type:Patient Education Patient Instructions Indication:Benign essential hypertension Start:06-Aug-2015 Instruction Type:Provider Instructions for Treatment Patient Instructions Indication:Well woman exam with routine gynecological exam Start:19-Feb-2015 Instruction Type:Provider Instructions for Treatment Patient Instructions Indication:Shoulder pain, left Start:09-Feb-2015 Instruction Type:Provider Instructions for Treatment Patient Instructions Indication:Screening for breast cancer Start:08-Jan-2015 Instruction Type:Provider Instructions for Treatment How to access health informa tion online Indication:Benign essential hypertension Start:04-Jun-2014 Instruction Type:Patient Education How to access health informa tion online - Detail Indication:Benign essential hypertension Start:04-Jun-2014 Instruction Type:Patient Education Patient Instructions Indication:Benign essential hypertension Start:04-Jun-2014 Instruction Type:Provider Instructions for Treatment Patient Instructions Indication:Benign essential hypertension Start:08-Jul-2013 Instruction Type:Provider Instructions for Treatment Patient Instructions Indication:Benign essential hypertension Start:07-Jan-2013 Instruction Type:Provider Instructions for Treatment Patient Instructions Indication:Hypercholesteremia Start:12-Jul-2012 Instruction Type:Provider Instructions for Treatment Patient Instructions Indication:Benign essential hypertension Start:09-Jul-2012 Instruction Type:Provider Instructions for Treatment [facility]; [facility] Work Phone: Instructions* Name Dates Details Patient Instructions Indication:Former smoker, stopped smoking in distant past Start:07-Jul-2022 Instruction Type:Provider Instructions for Treatment How to Access Health Informa tion Online using Patient Portal and [employer] Indication:Former smoker, stopped smoking in distant past Start:07-Jul-2022 Instruction Type:Patient Education Patient Instructions Indication:Former smoker, stopped smoking in distant past Start:28-Apr-2022 Instruction Type:Provider Instructions for Treatment How to Access Health Informa tion Online using Patient Portal and [employer] Indication:Former smoker, stopped smoking in distant past Start:28-Apr-2022 Instruction Type:Patient Education Patient Instructions Indication:Former smoker, stopped smoking in distant past Start:04-Jan-2022 Instruction Type:Provider Instructions for Treatment How to Access Health Informa tion Online using Patient Portal and [employer] Indication:Former smoker, stopped smoking in distant past Start:04-Jan-2022 Instruction Type:Patient Education Patient Instructions Indication:Parotid sialolithiasis Start:01-Jul-2021 Instruction Type:Provider Instructions for Treatment How to Access Health Informa tion Online using Patient Portal and [employer] Indication:Parotid sialolithiasis Start:01-Jul-2021 Instruction Type:Patient Education How to Access Health Informa tion Online using Patient Portal and [employer] Indication:Current smoker Start:01-Apr-2021 Instruction Type:Patient Education Patient Instructions Indication:Current smoker Start:01-Apr-2021 Instruction Type:Provider Instructions for Treatment How to access health informa tion online Indication:Current smoker Start:21-Nov-2019 Instruction Type:Patient Education How to access health informa tion online - Detail Indication:Current smoker Start:21-Nov-2019 Instruction Type:Patient Education Patient Instructions Indication:Current smoker Start:21-Nov-2019 Instruction Type:Provider Instructions for Treatment How to access health informa tion online Indication:Benign essential hypertension Start:22-May-2019 Instruction Type:Patient Education How to access health informa tion online - Detail Indication:Benign essential hypertension Start:22-May-2019 Instruction Type:Patient Education Patient Instructions Indication:Benign essential hypertension Start:22-May-2019 Instruction Type:Provider Instructions for Treatment How to access health informa tion online Indication:Body mass index (BMI) 23.0-23.9, adult Start:28-May-2018 Instruction Type:Patient Education How to access health informa tion online - Detail Indication:Body mass index (BMI) 23.0-23.9, adult Start:28-May-2018 Instruction Type:Patient Education Patient Instructions Indication:Body mass index (BMI) 23.0-23.9, adult Start:28-May-2018 Instruction Type:Provider Instructions for Treatment How to access health informa tion online Indication:Well woman exam with routine gynecological exam Start:12-Apr-2018 Instruction Type:Patient Education How to access health informa tion online - Detail Indication:Well woman exam with routine gynecological exam Start:12-Apr-2018 Instruction Type:Patient Education Patient Instructions Indication:Well woman exam with routine gynecological exam Start:12-Apr-2018 Instruction Type:Provider Instructions for Treatment How to access health informa tion online Indication:Current smoker Start:05-Apr-2018 Instruction Type:Patient Education How to access health informa tion online - Detail Indication:Current smoker Start:05-Apr-2018 Instruction Type:Patient Education Patient Instructions Indication:Current smoker Start:05-Apr-2018 Instruction Type:Provider Instructions for Treatment How to access health informa tion online Indication:Current smoker Start:11-Oct-2017 Instruction Type:Patient Education Patient Instructions Indication:Current smoker Start:11-Oct-2017 Instruction Type:Provider Instructions for Treatment How to access health informa tion online Indication:Body mass index (BMI) 23.0-23.9, adult Start:19-Sep-2017 Instruction Type:Patient Education How to access health informa tion online - Detail Indication:Body mass index (BMI) 23.0-23.9, adult Start:19-Sep-2017 Instruction Type:Patient Education Patient Instructions Indication:Body mass index (BMI) 23.0-23.9, adult Start:19-Sep-2017 Instruction Type:Provider Instructions for Treatment How to access health informa tion online Indication:Body mass index (BMI) 23.0-23.9, adult Start:28-Dec-2016 Instruction Type:Patient Education How to access health informa tion online - Detail Indication:Body mass index (BMI) 23.0-23.9, adult Start:28-Dec-2016 Instruction Type:Patient Education Patient Instructions Indication:Body mass index (BMI) 23.0-23.9, adult Start:28-Dec-2016 Instruction Type:Provider Instructions for Treatment How to access health informa tion online Indication:Pre-operative exam (Renamed from Encounter for pre-operative examination) Start:25-May-2016 Instruction Type:Patient Education How to access health informa tion online - Detail Indication:Pre-operative exam (Renamed from Encounter for pre-operative examination) Start:25-May-2016 Instruction Type:Patient Education Patient Instructions Indication:Pre-operative exam (Renamed from Encounter for pre-operative examination) Start:25-May-2016 Instruction Type:Provider Instructions for Treatment How to access health informa tion online Indication:Hyperlipidemia Start:11-Feb-2016 Instruction Type:Patient Education How to access health informa tion online - Detail Indication:Hyperlipidemia Start:11-Feb-2016 Instruction Type:Patient Education Patient Instructions Indication:Hyperlipidemia Start:11-Feb-2016 Instruction Type:Provider Instructions for Treatment How to access health informa tion online Indication:Neck pain Start:28-Dec-2015 Instruction Type:Patient Education How to access health informa tion online - Detail Indication:Neck pain Start:28-Dec-2015 Instruction Type:Patient Education Patient Instructions Indication:Neck pain Start:28-Dec-2015 Instruction Type:Provider Instructions for Treatment How to access health informa tion online Indication:Benign essential hypertension Start:06-Aug-2015 Instruction Type:Patient Education How to access health informa tion online - Detail Indication:Benign essential hypertension Start:06-Aug-2015 Instruction Type:Patient Education Patient Instructions Indication:Benign essential hypertension Start:06-Aug-2015 Instruction Type:Provider Instructions for Treatment Patient Instructions Indication:Well woman exam with routine gynecological exam Start:19-Feb-2015 Instruction Type:Provider Instructions for Treatment Patient Instructions Indication:Shoulder pain, left Start:09-Feb-2015 Instruction Type:Provider Instructions for Treatment Patient Instructions Indication:Screening for breast cancer Start:08-Jan-2015 Instruction Type:Provider Instructions for Treatment How to access health informa tion online Indication:Benign essential hypertension Start:04-Jun-2014 Instruction Type:Patient Education How to access health informa tion online - Detail Indication:Benign essential hypertension Start:04-Jun-2014 Instruction Type:Patient Education Patient Instructions Indication:Benign essential hypertension Start:04-Jun-2014 Instruction Type:Provider Instructions for Treatment Patient Instructions Indication:Benign essential hypertension Start:08-Jul-2013 Instruction Type:Provider Instructions for Treatment Patient Instructions Indication:Benign essential hypertension Start:07-Jan-2013 Instruction Type:Provider Instructions for Treatment Patient Instructions Indication:Hypercholesteremia Start:12-Jul-2012 Instruction Type:Provider Instructions for Treatment Patient Instructions Indication:Benign essential hypertension Start:09-Jul-2012 Instruction Type:Provider Instructions for Treatment [facility]; [facility] Work Phone: Instructions* Name Dates Details Patient Instructions Indication:Former smoker, stopped smoking in distant past Start:07-Jul-2022 Instruction Type:Provider Instructions for Treatment How to Access Health Informa tion Online using Patient Portal and [employer] Indication:Former smoker, stopped smoking in distant past Start:07-Jul-2022 Instruction Type:Patient Education Patient Instructions Indication:Former smoker, stopped smoking in distant past Start:28-Apr-2022 Instruction Type:Provider Instructions for Treatment How to Access Health Informa tion Online using Patient Portal and [employer] Indication:Former smoker, stopped smoking in distant past Start:28-Apr-2022 Instruction Type:Patient Education Patient Instructions Indication:Former smoker, stopped smoking in distant past Start:04-Jan-2022 Instruction Type:Provider Instructions for Treatment How to Access Health Informa tion Online using Patient Portal and [employer] Indication:Former smoker, stopped smoking in distant past Start:04-Jan-2022 Instruction Type:Patient Education Patient Instructions Indication:Parotid sialolithiasis Start:01-Jul-2021 Instruction Type:Provider Instructions for Treatment How to Access Health Informa tion Online using Patient Portal and [employer] Indication:Parotid sialolithiasis Start:01-Jul-2021 Instruction Type:Patient Education How to Access Health Informa tion Online using Patient Portal and [employer] Apps Indication:Current smoker Start:01-Apr-2021 Instruction Type:Patient Education Patient Instructions Indication:Current smoker Start:01-Apr-2021 Instruction Type:Provider Instructions for Treatment How to access health informa tion online Indication:Current smoker Start:21-Nov-2019 Instruction Type:Patient Education How to access health informa tion online - Detail Indication:Current smoker Start:21-Nov-2019 Instruction Type:Patient Education Patient Instructions Indication:Current smoker Start:21-Nov-2019 Instruction Type:Provider Instructions for Treatment How to access health informa tion online Indication:Benign essential hypertension Start:22-May-2019 Instruction Type:Patient Education How to access health informa tion online - Detail Indication:Benign essential hypertension Start:22-May-2019 Instruction Type:Patient Education Patient Instructions Indication:Benign essential hypertension Start:22-May-2019 Instruction Type:Provider Instructions for Treatment How to access health informa tion online Indication:Body mass index (BMI) 23.0-23.9, adult Start:28-May-2018 Instruction Type:Patient Education How to access health informa tion online - Detail Indication:Body mass index (BMI) 23.0-23.9, adult Start:28-May-2018 Instruction Type:Patient Education Patient Instructions Indication:Body mass index (BMI) 23.0-23.9, adult Start:28-May-2018 Instruction Type:Provider Instructions for Treatment How to access health informa tion online Indication:Well woman exam with routine gynecological exam Start:12-Apr-2018 Instruction Type:Patient Education How to access health informa tion online - Detail Indication:Well woman exam with routine gynecological exam Start:12-Apr-2018 Instruction Type:Patient Education Patient Instructions Indication:Well woman exam with routine gynecological exam Start:12-Apr-2018 Instruction Type:Provider Instructions for Treatment How to access health informa tion online Indication:Current smoker Start:05-Apr-2018 Instruction Type:Patient Education How to access health informa tion online - Detail Indication:Current smoker Start:05-Apr-2018 Instruction Type:Patient Education Patient Instructions Indication:Current smoker Start:05-Apr-2018 Instruction Type:Provider Instructions for Treatment How to access health informa tion online Indication:Current smoker Start:11-Oct-2017 Instruction Type:Patient Education Patient Instructions Indication:Current smoker Start:11-Oct-2017 Instruction Type:Provider Instructions for Treatment How to access health informa tion online Indication:Body mass index (BMI) 23.0-23.9, adult Start:19-Sep-2017 Instruction Type:Patient Education How to access health informa tion online - Detail Indication:Body mass index (BMI) 23.0-23.9, adult Start:19-Sep-2017 Instruction Type:Patient Education Patient Instructions Indication:Body mass index (BMI) 23.0-23.9, adult Start:19-Sep-2017 Instruction Type:Provider Instructions for Treatment How to access health informa tion online Indication:Body mass index (BMI) 23.0-23.9, adult Start:28-Dec-2016 Instruction Type:Patient Education How to access health informa tion online - Detail Indication:Body mass index (BMI) 23.0-23.9, adult Start:28-Dec-2016 Instruction Type:Patient Education Patient Instructions Indication:Body mass index (BMI) 23.0-23.9, adult Start:28-Dec-2016 Instruction Type:Provider Instructions for Treatment How to access health informa tion online Indication:Pre-operative exam (Renamed from Encounter for pre-operative examination) Start:25-May-2016 Instruction Type:Patient Education How to access health informa tion online - Detail Indication:Pre-operative exam (Renamed from Encounter for pre-operative examination) Start:25-May-2016 Instruction Type:Patient Education Patient Instructions Indication:Pre-operative exam (Renamed from Encounter for pre-operative examination) Start:25-May-2016 Instruction Type:Provider Instructions for Treatment How to access health informa tion online Indication:Hyperlipidemia Start:11-Feb-2016 Instruction Type:Patient Education How to access health informa tion online - Detail Indication:Hyperlipidemia Start:11-Feb-2016 Instruction Type:Patient Education Patient Instructions Indication:Hyperlipidemia Start:11-Feb-2016 Instruction Type:Provider Instructions for Treatment How to access health informa tion online Indication:Neck pain Start:28-Dec-2015 Instruction Type:Patient Education How to access health informa tion online - Detail Indication:Neck pain Start:28-Dec-2015 Instruction Type:Patient Education Patient Instructions Indication:Neck pain Start:28-Dec-2015 Instruction Type:Provider Instructions for Treatment How to access health informa tion online Indication:Benign essential hypertension Start:06-Aug-2015 Instruction Type:Patient Education How to access health informa tion online - Detail Indication:Benign essential hypertension Start:06-Aug-2015 Instruction Type:Patient Education Patient Instructions Indication:Benign essential hypertension Start:06-Aug-2015 Instruction Type:Provider Instructions for Treatment Patient Instructions Indication:Well woman exam with routine gynecological exam Start:19-Feb-2015 Instruction Type:Provider Instructions for Treatment Patient Instructions Indication:Shoulder pain, left Start:09-Feb-2015 Instruction Type:Provider Instructions for Treatment Patient Instructions Indication:Screening for breast cancer Start:08-Jan-2015 Instruction Type:Provider Instructions for Treatment How to access health informa tion online Indication:Benign essential hypertension Start:04-Jun-2014 Instruction Type:Patient Education How to access health informa tion online - Detail Indication:Benign essential hypertension Start:04-Jun-2014 Instruction Type:Patient Education Patient Instructions Indication:Benign essential hypertension Start:04-Jun-2014 Instruction Type:Provider Instructions for Treatment Patient Instructions Indication:Benign essential hypertension Start:08-Jul-2013 Instruction Type:Provider Instructions for Treatment Patient Instructions Indication:Benign essential hypertension Start:07-Jan-2013 Instruction Type:Provider Instructions for Treatment Patient Instructions Indication:Hypercholesteremia Start:12-Jul-2012 Instruction Type:Provider Instructions for Treatment Patient Instructions Indication:Benign essential hypertension Start:09-Jul-2012 Instruction Type:Provider Instructions for Treatment [facility]; [facility] Work Phone: Instructions* Name Dates Details Patient Instructions Indication:BMI 23.0-23.9, adult Start:14-Aug-2022 Instruction Type:Provider Instructions for Treatment How to Access Health Informa tion Online using Patient Portal and [employer] Apps Indication:BMI 23.0-23.9, adult Start:14-Aug-2022 Instruction Type:Patient Education Patient Instructions Indication:Former smoker, stopped smoking in distant past Start:07-Jul-2022 Instruction Type:Provider Instructions for Treatment How to Access Health Informa tion Online using Patient Portal and [employer] Apps Indication:Former smoker, stopped smoking in distant past Start:07-Jul-2022 Instruction Type:Patient Education Patient Instructions Indication:Former smoker, stopped smoking in distant past Start:28-Apr-2022 Instruction Type:Provider Instructions for Treatment How to Access Health Informa tion Online using Patient Portal and [employer] Indication:Former smoker, stopped smoking in distant past Start:28-Apr-2022 Instruction Type:Patient Education Patient Instructions Indication:Former smoker, stopped smoking in distant past Start:04-Jan-2022 Instruction Type:Provider Instructions for Treatment How to Access Health Informa tion Online using Patient Portal and [employer] Indication:Former smoker, stopped smoking in distant past Start:04-Jan-2022 Instruction Type:Patient Education Patient Instructions Indication:Parotid sialolithiasis Start:01-Jul-2021 Instruction Type:Provider Instructions for Treatment How to Access Health Informa tion Online using Patient Portal and [employer] Indication:Parotid sialolithiasis Start:01-Jul-2021 Instruction Type:Patient Education How to Access Health Informa tion Online using Patient Portal and [employer] Indication:Current smoker Start:01-Apr-2021 Instruction Type:Patient Education Patient Instructions Indication:Current smoker Start:01-Apr-2021 Instruction Type:Provider Instructions for Treatment How to access health informa tion online Indication:Current smoker Start:21-Nov-2019 Instruction Type:Patient Education How to access health informa tion online - Detail Indication:Current smoker Start:21-Nov-2019 Instruction Type:Patient Education Patient Instructions Indication:Current smoker Start:21-Nov-2019 Instruction Type:Provider Instructions for Treatment How to access health informa tion online Indication:Benign essential hypertension Start:22-May-2019 Instruction Type:Patient Education How to access health informa tion online - Detail Indication:Benign essential hypertension Start:22-May-2019 Instruction Type:Patient Education Patient Instructions Indication:Benign essential hypertension Start:22-May-2019 Instruction Type:Provider Instructions for Treatment How to access health informa tion online Indication:Body mass index (BMI) 23.0-23.9, adult Start:28-May-2018 Instruction Type:Patient Education How to access health informa tion online - Detail Indication:Body mass index (BMI) 23.0-23.9, adult Start:28-May-2018 Instruction Type:Patient Education Patient Instructions Indication:Body mass index (BMI) 23.0-23.9, adult Start:28-May-2018 Instruction Type:Provider Instructions for Treatment How to access health informa tion online Indication:Well woman exam with routine gynecological exam Start:12-Apr-2018 Instruction Type:Patient Education How to access health informa tion online - Detail Indication:Well woman exam with routine gynecological exam Start:12-Apr-2018 Instruction Type:Patient Education Patient Instructions Indication:Well woman exam with routine gynecological exam Start:12-Apr-2018 Instruction Type:Provider Instructions for Treatment How to access health informa tion online Indication:Current smoker Start:05-Apr-2018 Instruction Type:Patient Education How to access health informa tion online - Detail Indication:Current smoker Start:05-Apr-2018 Instruction Type:Patient Education Patient Instructions Indication:Current smoker Start:05-Apr-2018 Instruction Type:Provider Instructions for Treatment How to access health informa tion online Indication:Current smoker Start:11-Oct-2017 Instruction Type:Patient Education Patient Instructions Indication:Current smoker Start:11-Oct-2017 Instruction Type:Provider Instructions for Treatment How to access health informa tion online Indication:Body mass index (BMI) 23.0-23.9, adult Start:19-Sep-2017 Instruction Type:Patient Education How to access health informa tion online - Detail Indication:Body mass index (BMI) 23.0-23.9, adult Start:19-Sep-2017 Instruction Type:Patient Education Patient Instructions Indication:Body mass index (BMI) 23.0-23.9, adult Start:19-Sep-2017 Instruction Type:Provider Instructions for Treatment How to access health informa tion online Indication:Body mass index (BMI) 23.0-23.9, adult Start:28-Dec-2016 Instruction Type:Patient Education How to access health informa tion online - Detail Indication:Body mass index (BMI) 23.0-23.9, adult Start:28-Dec-2016 Instruction Type:Patient Education Patient Instructions Indication:Body mass index (BMI) 23.0-23.9, adult Start:28-Dec-2016 Instruction Type:Provider Instructions for Treatment How to access health informa tion online Indication:Pre-operative exam (Renamed from Encounter for pre-operative examination) Start:25-May-2016 Instruction Type:Patient Education How to access health informa tion online - Detail Indication:Pre-operative exam (Renamed from Encounter for pre-operative examination) Start:25-May-2016 Instruction Type:Patient Education Patient Instructions Indication:Pre-operative exam (Renamed from Encounter for pre-operative examination) Start:25-May-2016 Instruction Type:Provider Instructions for Treatment How to access health informa tion online Indication:Hyperlipidemia Start:11-Feb-2016 Instruction Type:Patient Education How to access health informa tion online - Detail Indication:Hyperlipidemia Start:11-Feb-2016 Instruction Type:Patient Education Patient Instructions Indication:Hyperlipidemia Start:11-Feb-2016 Instruction Type:Provider Instructions for Treatment How to access health informa tion online Indication:Neck pain Start:28-Dec-2015 Instruction Type:Patient Education How to access health informa tion online - Detail Indication:Neck pain Start:28-Dec-2015 Instruction Type:Patient Education Patient Instructions Indication:Neck pain Start:28-Dec-2015 Instruction Type:Provider Instructions for Treatment How to access health informa tion online Indication:Benign essential hypertension Start:06-Aug-2015 Instruction Type:Patient Education How to access health informa tion online - Detail Indication:Benign essential hypertension Start:06-Aug-2015 Instruction Type:Patient Education Patient Instructions Indication:Benign essential hypertension Start:06-Aug-2015 Instruction Type:Provider Instructions for Treatment Patient Instructions Indication:Well woman exam with routine gynecological exam Start:19-Feb-2015 Instruction Type:Provider Instructions for Treatment Patient Instructions Indication:Shoulder pain, left Start:09-Feb-2015 Instruction Type:Provider Instructions for Treatment Patient Instructions Indication:Screening for breast cancer Start:08-Jan-2015 Instruction Type:Provider Instructions for Treatment How to access health informa tion online Indication:Benign essential hypertension Start:04-Jun-2014 Instruction Type:Patient Education How to access health informa tion online - Detail Indication:Benign essential hypertension Start:04-Jun-2014 Instruction Type:Patient Education Patient Instructions Indication:Benign essential hypertension Start:04-Jun-2014 Instruction Type:Provider Instructions for Treatment Patient Instructions Indication:Benign essential hypertension Start:08-Jul-2013 Instruction Type:Provider Instructions for Treatment Patient Instructions Indication:Benign essential hypertension Start:07-Jan-2013 Instruction Type:Provider Instructions for Treatment Patient Instructions Indication:Hypercholesteremia Start:12-Jul-2012 Instruction Type:Provider Instructions for Treatment Patient Instructions Indication:Benign essential hypertension Start:09-Jul-2012 Instruction Type:Provider Instructions for Treatment [facility]; [facility] Work Phone: Instructions* Name Dates Details Patient Instructions Indication:BMI 23.0-23.9, adult Start:14-Aug-2022 Instruction Type:Provider Instructions for Treatment How to Access Health Informa tion Online using Patient Portal and [employer] Apps Indication:BMI 23.0-23.9, adult Start:14-Aug-2022 Instruction Type:Patient Education Patient Instructions Indication:Former smoker, stopped smoking in distant past Start:07-Jul-2022 Instruction Type:Provider Instructions for Treatment How to Access Health Informa tion Online using Patient Portal and [employer] Apps Indication:Former smoker, stopped smoking in distant past Start:07-Jul-2022 Instruction Type:Patient Education Patient Instructions Indication:Former smoker, stopped smoking in distant past Start:28-Apr-2022 Instruction Type:Provider Instructions for Treatment How to Access Health Informa tion Online using Patient Portal and [employer] Apps Indication:Former smoker, stopped smoking in distant past Start:28-Apr-2022 Instruction Type:Patient Education Patient Instructions Indication:Former smoker, stopped smoking in distant past Start:04-Jan-2022 Instruction Type:Provider Instructions for Treatment How to Access Health Informa tion Online using Patient Portal and [employer] Indication:Former smoker, stopped smoking in distant past Start:04-Jan-2022 Instruction Type:Patient Education Patient Instructions Indication:Parotid sialolithiasis Start:01-Jul-2021 Instruction Type:Provider Instructions for Treatment How to Access Health Informa tion Online using Patient Portal and [employer] Apps Indication:Parotid sialolithiasis Start:01-Jul-2021 Instruction Type:Patient Education How to Access Health Informa tion Online using Patient Portal and [employer] Apps Indication:Current smoker Start:01-Apr-2021 Instruction Type:Patient Education Patient Instructions Indication:Current smoker Start:01-Apr-2021 Instruction Type:Provider Instructions for Treatment How to access health informa tion online Indication:Current smoker Start:21-Nov-2019 Instruction Type:Patient Education How to access health informa tion online - Detail Indication:Current smoker Start:21-Nov-2019 Instruction Type:Patient Education Patient Instructions Indication:Current smoker Start:21-Nov-2019 Instruction Type:Provider Instructions for Treatment How to access health informa tion online Indication:Benign essential hypertension Start:22-May-2019 Instruction Type:Patient Education How to access health informa tion online - Detail Indication:Benign essential hypertension Start:22-May-2019 Instruction Type:Patient Education Patient Instructions Indication:Benign essential hypertension Start:22-May-2019 Instruction Type:Provider Instructions for Treatment How to access health informa tion online Indication:Body mass index (BMI) 23.0-23.9, adult Start:28-May-2018 Instruction Type:Patient Education How to access health informa tion online - Detail Indication:Body mass index (BMI) 23.0-23.9, adult Start:28-May-2018 Instruction Type:Patient Education Patient Instructions Indication:Body mass index (BMI) 23.0-23.9, adult Start:28-May-2018 Instruction Type:Provider Instructions for Treatment How to access health informa tion online Indication:Well woman exam with routine gynecological exam Start:12-Apr-2018 Instruction Type:Patient Education How to access health informa tion online - Detail Indication:Well woman exam with routine gynecological exam Start:12-Apr-2018 Instruction Type:Patient Education Patient Instructions Indication:Well woman exam with routine gynecological exam Start:12-Apr-2018 Instruction Type:Provider Instructions for Treatment How to access health informa tion online Indication:Current smoker Start:05-Apr-2018 Instruction Type:Patient Education How to access health informa tion online - Detail Indication:Current smoker Start:05-Apr-2018 Instruction Type:Patient Education Patient Instructions Indication:Current smoker Start:05-Apr-2018 Instruction Type:Provider Instructions for Treatment How to access health informa tion online Indication:Current smoker Start:11-Oct-2017 Instruction Type:Patient Education Patient Instructions Indication:Current smoker Start:11-Oct-2017 Instruction Type:Provider Instructions for Treatment How to access health informa tion online Indication:Body mass index (BMI) 23.0-23.9, adult Start:19-Sep-2017 Instruction Type:Patient Education How to access health informa tion online - Detail Indication:Body mass index (BMI) 23.0-23.9, adult Start:19-Sep-2017 Instruction Type:Patient Education Patient Instructions Indication:Body mass index (BMI) 23.0-23.9, adult Start:19-Sep-2017 Instruction Type:Provider Instructions for Treatment How to access health informa tion online Indication:Body mass index (BMI) 23.0-23.9, adult Start:28-Dec-2016 Instruction Type:Patient Education How to access health informa tion online - Detail Indication:Body mass index (BMI) 23.0-23.9, adult Start:28-Dec-2016 Instruction Type:Patient Education Patient Instructions Indication:Body mass index (BMI) 23.0-23.9, adult Start:28-Dec-2016 Instruction Type:Provider Instructions for Treatment How to access health informa tion online Indication:Pre-operative exam (Renamed from Encounter for pre-operative examination) Start:25-May-2016 Instruction Type:Patient Education How to access health informa tion online - Detail Indication:Pre-operative exam (Renamed from Encounter for pre-operative examination) Start:25-May-2016 Instruction Type:Patient Education Patient Instructions Indication:Pre-operative exam (Renamed from Encounter for pre-operative examination) Start:25-May-2016 Instruction Type:Provider Instructions for Treatment How to access health informa tion online Indication:Hyperlipidemia Start:11-Feb-2016 Instruction Type:Patient Education How to access health informa tion online - Detail Indication:Hyperlipidemia Start:11-Feb-2016 Instruction Type:Patient Education Patient Instructions Indication:Hyperlipidemia Start:11-Feb-2016 Instruction Type:Provider Instructions for Treatment How to access health informa tion online Indication:Neck pain Start:28-Dec-2015 Instruction Type:Patient Education How to access health informa tion online - Detail Indication:Neck pain Start:28-Dec-2015 Instruction Type:Patient Education Patient Instructions Indication:Neck pain Start:28-Dec-2015 Instruction Type:Provider Instructions for Treatment How to access health informa tion online Indication:Benign essential hypertension Start:06-Aug-2015 Instruction Type:Patient Education How to access health informa tion online - Detail Indication:Benign essential hypertension Start:06-Aug-2015 Instruction Type:Patient Education Patient Instructions Indication:Benign essential hypertension Start:06-Aug-2015 Instruction Type:Provider Instructions for Treatment Patient Instructions Indication:Well woman exam with routine gynecological exam Start:19-Feb-2015 Instruction Type:Provider Instructions for Treatment Patient Instructions Indication:Shoulder pain, left Start:09-Feb-2015 Instruction Type:Provider Instructions for Treatment Patient Instructions Indication:Screening for breast cancer Start:08-Jan-2015 Instruction Type:Provider Instructions for Treatment How to access health informa tion online Indication:Benign essential hypertension Start:04-Jun-2014 Instruction Type:Patient Education How to access health informa tion online - Detail Indication:Benign essential hypertension Start:04-Jun-2014 Instruction Type:Patient Education Patient Instructions Indication:Benign essential hypertension Start:04-Jun-2014 Instruction Type:Provider Instructions for Treatment Patient Instructions Indication:Benign essential hypertension Start:08-Jul-2013 Instruction Type:Provider Instructions for Treatment Patient Instructions Indication:Benign essential hypertension Start:07-Jan-2013 Instruction Type:Provider Instructions for Treatment Patient Instructions Indication:Hypercholesteremia Start:12-Jul-2012 Instruction Type:Provider Instructions for Treatment Patient Instructions Indication:Benign essential hypertension Start:09-Jul-2012 Instruction Type:Provider Instructions for Treatment [facility]; [facility] Work Phone: Instructions* Name Dates Details How to Access Health Informa tion Online using Patient Portal and [employer] Indication:Former smoker, stopped smoking in distant past Start:11-Jan-2023 Instruction Type:Patient Education Patient Instructions Indication:Former smoker, stopped smoking in distant past Start:11-Jan-2023 Instruction Type:Provider Instructions for Treatment Patient Instructions Indication:BMI 23.0-23.9, adult Start:14-Aug-2022 Instruction Type:Provider Instructions for Treatment How to Access Health Informa tion Online using Patient Portal and [employer] Indication:BMI 23.0-23.9, adult Start:14-Aug-2022 Instruction Type:Patient Education Patient Instructions Indication:Former smoker, stopped smoking in distant past Start:07-Jul-2022 Instruction Type:Provider Instructions for Treatment How to Access Health Informa tion Online using Patient Portal and behaview Apps Indication:Former smoker, stopped smoking in distant past Start:07-Jul-2022 Instruction Type:Patient Education Patient Instructions Indication:Former smoker, stopped smoking in distant past Start:28-Apr-2022 Instruction Type:Provider Instructions for Treatment How to Access Health Informa tion Online using Patient Portal and [employer]iew Apps Indication:Former smoker, stopped smoking in distant past Start:28-Apr-2022 Instruction Type:Patient Education Patient Instructions Indication:Former smoker, stopped smoking in distant past Start:04-Jan-2022 Instruction Type:Provider Instructions for Treatment How to Access Health Informa tion Online using Patient Portal and [employer]iew Apps Indication:Former smoker, stopped smoking in distant past Start:04-Jan-2022 Instruction Type:Patient Education Patient Instructions Indication:Parotid sialolithiasis Start:01-Jul-2021 Instruction Type:Provider Instructions for Treatment How to Access Health Informa tion Online using Patient Portal and [employer] Apps Indication:Parotid sialolithiasis Start:01-Jul-2021 Instruction Type:Patient Education How to Access Health Informa tion Online using Patient Portal and [employer] Apps Indication:Current smoker Start:01-Apr-2021 Instruction Type:Patient Education Patient Instructions Indication:Current smoker Start:01-Apr-2021 Instruction Type:Provider Instructions for Treatment How to access health informa tion online Indication:Current smoker Start:21-Nov-2019 Instruction Type:Patient Education How to access health informa tion online - Detail Indication:Current smoker Start:21-Nov-2019 Instruction Type:Patient Education Patient Instructions Indication:Current smoker Start:21-Nov-2019 Instruction Type:Provider Instructions for Treatment How to access health informa tion online Indication:Benign essential hypertension Start:22-May-2019 Instruction Type:Patient Education How to access health informa tion online - Detail Indication:Benign essential hypertension Start:22-May-2019 Instruction Type:Patient Education Patient Instructions Indication:Benign essential hypertension Start:22-May-2019 Instruction Type:Provider Instructions for Treatment How to access health informa tion online Indication:Body mass index (BMI) 23.0-23.9, adult Start:28-May-2018 Instruction Type:Patient Education How to access health informa tion online - Detail Indication:Body mass index (BMI) 23.0-23.9, adult Start:28-May-2018 Instruction Type:Patient Education Patient Instructions Indication:Body mass index (BMI) 23.0-23.9, adult Start:28-May-2018 Instruction Type:Provider Instructions for Treatment How to access health informa tion online Indication:Well woman exam with routine gynecological exam Start:12-Apr-2018 Instruction Type:Patient Education How to access health informa tion online - Detail Indication:Well woman exam with routine gynecological exam Start:12-Apr-2018 Instruction Type:Patient Education Patient Instructions Indication:Well woman exam with routine gynecological exam Start:12-Apr-2018 Instruction Type:Provider Instructions for Treatment How to access health informa tion online Indication:Current smoker Start:05-Apr-2018 Instruction Type:Patient Education How to access health informa tion online - Detail Indication:Current smoker Start:05-Apr-2018 Instruction Type:Patient Education Patient Instructions Indication:Current smoker Start:05-Apr-2018 Instruction Type:Provider Instructions for Treatment How to access health informa tion online Indication:Current smoker Start:11-Oct-2017 Instruction Type:Patient Education Patient Instructions Indication:Current smoker Start:11-Oct-2017 Instruction Type:Provider Instructions for Treatment How to access health informa tion online Indication:Body mass index (BMI) 23.0-23.9, adult Start:19-Sep-2017 Instruction Type:Patient Education How to access health informa tion online - Detail Indication:Body mass index (BMI) 23.0-23.9, adult Start:19-Sep-2017 Instruction Type:Patient Education Patient Instructions Indication:Body mass index (BMI) 23.0-23.9, adult Start:19-Sep-2017 Instruction Type:Provider Instructions for Treatment How to access health informa tion online Indication:Body mass index (BMI) 23.0-23.9, adult Start:28-Dec-2016 Instruction Type:Patient Education How to access health informa tion online - Detail Indication:Body mass index (BMI) 23.0-23.9, adult Start:28-Dec-2016 Instruction Type:Patient Education Patient Instructions Indication:Body mass index (BMI) 23.0-23.9, adult Start:28-Dec-2016 Instruction Type:Provider Instructions for Treatment How to access health informa tion online Indication:Pre-operative exam (Renamed from Encounter for pre-operative examination) Start:25-May-2016 Instruction Type:Patient Education How to access health informa tion online - Detail Indication:Pre-operative exam (Renamed from Encounter for pre-operative examination) Start:25-May-2016 Instruction Type:Patient Education Patient Instructions Indication:Pre-operative exam (Renamed from Encounter for pre-operative examination) Start:25-May-2016 Instruction Type:Provider Instructions for Treatment How to access health informa tion online Indication:Hyperlipidemia Start:11-Feb-2016 Instruction Type:Patient Education How to access health informa tion online - Detail Indication:Hyperlipidemia Start:11-Feb-2016 Instruction Type:Patient Education Patient Instructions Indication:Hyperlipidemia Start:11-Feb-2016 Instruction Type:Provider Instructions for Treatment How to access health informa tion online Indication:Neck pain Start:28-Dec-2015 Instruction Type:Patient Education How to access health informa tion online - Detail Indication:Neck pain Start:28-Dec-2015 Instruction Type:Patient Education Patient Instructions Indication:Neck pain Start:28-Dec-2015 Instruction Type:Provider Instructions for Treatment How to access health informa tion online Indication:Benign essential hypertension Start:06-Aug-2015 Instruction Type:Patient Education How to access health informa tion online - Detail Indication:Benign essential hypertension Start:06-Aug-2015 Instruction Type:Patient Education Patient Instructions Indication:Benign essential hypertension Start:06-Aug-2015 Instruction Type:Provider Instructions for Treatment Patient Instructions Indication:Well woman exam with routine gynecological exam Start:19-Feb-2015 Instruction Type:Provider Instructions for Treatment Patient Instructions Indication:Shoulder pain, left Start:09-Feb-2015 Instruction Type:Provider Instructions for Treatment Patient Instructions Indication:Screening for breast cancer Start:08-Jan-2015 Instruction Type:Provider Instructions for Treatment How to access health informa tion online Indication:Benign essential hypertension Start:04-Jun-2014 Instruction Type:Patient Education How to access health informa tion online - Detail Indication:Benign essential hypertension Start:04-Jun-2014 Instruction Type:Patient Education Patient Instructions Indication:Benign essential hypertension Start:04-Jun-2014 Instruction Type:Provider Instructions for Treatment Patient Instructions Indication:Benign essential hypertension Start:08-Jul-2013 Instruction Type:Provider Instructions for Treatment Patient Instructions Indication:Benign essential hypertension Start:07-Jan-2013 Instruction Type:Provider Instructions for Treatment Patient Instructions Indication:Hypercholesteremia Start:12-Jul-2012 Instruction Type:Provider Instructions for Treatment Patient Instructions Indication:Benign essential hypertension Start:09-Jul-2012 Instruction Type:Provider Instructions for Treatment [facility]; [facility] Work Phone: Instructions* Name Dates Details How to Access Health Informa tion Online using Patient Portal and behaview Apps Indication:Former smoker, stopped smoking in distant past Start:11-Jan-2023 Instruction Type:Patient Education Patient Instructions Indication:Former smoker, stopped smoking in distant past Start:11-Jan-2023 Instruction Type:Provider Instructions for Treatment Patient Instructions Indication:BMI 23.0-23.9, adult Start:14-Aug-2022 Instruction Type:Provider Instructions for Treatment How to Access Health Informa tion Online using Patient Portal and behaview Apps Indication:BMI 23.0-23.9, adult Start:14-Aug-2022 Instruction Type:Patient Education Patient Instructions Indication:Former smoker, stopped smoking in distant past Start:07-Jul-2022 Instruction Type:Provider Instructions for Treatment How to Access Health Informa tion Online using Patient Portal and behaview Apps Indication:Former smoker, stopped smoking in distant past Start:07-Jul-2022 Instruction Type:Patient Education Patient Instructions Indication:Former smoker, stopped smoking in distant past Start:28-Apr-2022 Instruction Type:Provider Instructions for Treatment How to Access Health Informa tion Online using Patient Portal and behaview Apps Indication:Former smoker, stopped smoking in distant past Start:28-Apr-2022 Instruction Type:Patient Education Patient Instructions Indication:Former smoker, stopped smoking in distant past Start:04-Jan-2022 Instruction Type:Provider Instructions for Treatment How to Access Health Informa tion Online using Patient Portal and behaview Apps Indication:Former smoker, stopped smoking in distant past Start:04-Jan-2022 Instruction Type:Patient Education Patient Instructions Indication:Parotid sialolithiasis Start:01-Jul-2021 Instruction Type:Provider Instructions for Treatment How to Access Health Informa tion Online using Patient Portal and behaview Apps Indication:Parotid sialolithiasis Start:01-Jul-2021 Instruction Type:Patient Education How to Access Health Informa tion Online using Patient Portal and behaview Apps Indication:Current smoker Start:01-Apr-2021 Instruction Type:Patient Education Patient Instructions Indication:Current smoker Start:01-Apr-2021 Instruction Type:Provider Instructions for Treatment How to access health informa tion online Indication:Current smoker Start:21-Nov-2019 Instruction Type:Patient Education How to access health informa tion online - Detail Indication:Current smoker Start:21-Nov-2019 Instruction Type:Patient Education Patient Instructions Indication:Current smoker Start:21-Nov-2019 Instruction Type:Provider Instructions for Treatment How to access health informa tion online Indication:Benign essential hypertension Start:22-May-2019 Instruction Type:Patient Education How to access health informa tion online - Detail Indication:Benign essential hypertension Start:22-May-2019 Instruction Type:Patient Education Patient Instructions Indication:Benign essential hypertension Start:22-May-2019 Instruction Type:Provider Instructions for Treatment How to access health informa tion online Indication:Body mass index (BMI) 23.0-23.9, adult Start:28-May-2018 Instruction Type:Patient Education How to access health informa tion online - Detail Indication:Body mass index (BMI) 23.0-23.9, adult Start:28-May-2018 Instruction Type:Patient Education Patient Instructions Indication:Body mass index (BMI) 23.0-23.9, adult Start:28-May-2018 Instruction Type:Provider Instructions for Treatment How to access health informa tion online Indication:Well woman exam with routine gynecological exam Start:12-Apr-2018 Instruction Type:Patient Education How to access health informa tion online - Detail Indication:Well woman exam with routine gynecological exam Start:12-Apr-2018 Instruction Type:Patient Education Patient Instructions Indication:Well woman exam with routine gynecological exam Start:12-Apr-2018 Instruction Type:Provider Instructions for Treatment How to access health informa tion online Indication:Current smoker Start:05-Apr-2018 Instruction Type:Patient Education How to access health informa tion online - Detail Indication:Current smoker Start:05-Apr-2018 Instruction Type:Patient Education Patient Instructions Indication:Current smoker Start:05-Apr-2018 Instruction Type:Provider Instructions for Treatment How to access health informa tion online Indication:Current smoker Start:11-Oct-2017 Instruction Type:Patient Education Patient Instructions Indication:Current smoker Start:11-Oct-2017 Instruction Type:Provider Instructions for Treatment How to access health informa tion online Indication:Body mass index (BMI) 23.0-23.9, adult Start:19-Sep-2017 Instruction Type:Patient Education How to access health informa tion online - Detail Indication:Body mass index (BMI) 23.0-23.9, adult Start:19-Sep-2017 Instruction Type:Patient Education Patient Instructions Indication:Body mass index (BMI) 23.0-23.9, adult Start:19-Sep-2017 Instruction Type:Provider Instructions for Treatment How to access health informa tion online Indication:Body mass index (BMI) 23.0-23.9, adult Start:28-Dec-2016 Instruction Type:Patient Education How to access health informa tion online - Detail Indication:Body mass index (BMI) 23.0-23.9, adult Start:28-Dec-2016 Instruction Type:Patient Education Patient Instructions Indication:Body mass index (BMI) 23.0-23.9, adult Start:28-Dec-2016 Instruction Type:Provider Instructions for Treatment How to access health informa tion online Indication:Pre-operative exam (Renamed from Encounter for pre-operative examination) Start:25-May-2016 Instruction Type:Patient Education How to access health informa tion online - Detail Indication:Pre-operative exam (Renamed from Encounter for pre-operative examination) Start:25-May-2016 Instruction Type:Patient Education Patient Instructions Indication:Pre-operative exam (Renamed from Encounter for pre-operative examination) Start:25-May-2016 Instruction Type:Provider Instructions for Treatment How to access health informa tion online Indication:Hyperlipidemia Start:11-Feb-2016 Instruction Type:Patient Education How to access health informa tion online - Detail Indication:Hyperlipidemia Start:11-Feb-2016 Instruction Type:Patient Education Patient Instructions Indication:Hyperlipidemia Start:11-Feb-2016 Instruction Type:Provider Instructions for Treatment How to access health informa tion online Indication:Neck pain Start:28-Dec-2015 Instruction Type:Patient Education How to access health informa tion online - Detail Indication:Neck pain Start:28-Dec-2015 Instruction Type:Patient Education Patient Instructions Indication:Neck pain Start:28-Dec-2015 Instruction Type:Provider Instructions for Treatment How to access health informa tion online Indication:Benign essential hypertension Start:06-Aug-2015 Instruction Type:Patient Education How to access health informa tion online - Detail Indication:Benign essential hypertension Start:06-Aug-2015 Instruction Type:Patient Education Patient Instructions Indication:Benign essential hypertension Start:06-Aug-2015 Instruction Type:Provider Instructions for Treatment Patient Instructions Indication:Well woman exam with routine gynecological exam Start:19-Feb-2015 Instruction Type:Provider Instructions for Treatment Patient Instructions Indication:Shoulder pain, left Start:09-Feb-2015 Instruction Type:Provider Instructions for Treatment Patient Instructions Indication:Screening for breast cancer Start:08-Jan-2015 Instruction Type:Provider Instructions for Treatment How to access health informa tion online Indication:Benign essential hypertension Start:04-Jun-2014 Instruction Type:Patient Education How to access health informa tion online - Detail Indication:Benign essential hypertension Start:04-Jun-2014 Instruction Type:Patient Education Patient Instructions Indication:Benign essential hypertension Start:04-Jun-2014 Instruction Type:Provider Instructions for Treatment Patient Instructions Indication:Benign essential hypertension Start:08-Jul-2013 Instruction Type:Provider Instructions for Treatment Patient Instructions Indication:Benign essential hypertension Start:07-Jan-2013 Instruction Type:Provider Instructions for Treatment Patient Instructions Indication:Hypercholesteremia Start:12-Jul-2012 Instruction Type:Provider Instructions for Treatment Patient Instructions Indication:Benign essential hypertension Start:09-Jul-2012 Instruction Type:Provider Instructions for Treatment [facility]; [facility] Work Phone: Instructions* Name Dates Details Patient Instructions Indication:Annual Medicare Phyiscal WITHOUT abnormal findings (Renamed from Encounter for general adult medical examination without abnormal findings) Start:12-Jul-2023 Instruction Type:Provider Instructions for Treatment How to Access Health Informa tion Online using Patient Portal and behaview Apps Indication:Annual Medicare Phyiscal WITHOUT abnormal findings (Renamed from Encounter for general adult medical examination without abnormal findings) Start:12-Jul-2023 Instruction Type:Patient Education How to Access Health Informa tion Online using Patient Portal and [employer] Indication:Former smoker, stopped smoking in distant past Start:11-Jan-2023 Instruction Type:Patient Education Patient Instructions Indication:Former smoker, stopped smoking in distant past Start:11-Jan-2023 Instruction Type:Provider Instructions for Treatment Patient Instructions Indication:BMI 23.0-23.9, adult Start:14-Aug-2022 Instruction Type:Provider Instructions for Treatment How to Access Health Informa tion Online using Patient Portal and behaview Apps Indication:BMI 23.0-23.9, adult Start:14-Aug-2022 Instruction Type:Patient Education Patient Instructions Indication:Former smoker, stopped smoking in distant past Start:07-Jul-2022 Instruction Type:Provider Instructions for Treatment How to Access Health Informa tion Online using Patient Portal and [employer] Apps Indication:Former smoker, stopped smoking in distant past Start:07-Jul-2022 Instruction Type:Patient Education Patient Instructions Indication:Former smoker, stopped smoking in distant past Start:28-Apr-2022 Instruction Type:Provider Instructions for Treatment How to Access Health Informa tion Online using Patient Portal and [employer] Apps Indication:Former smoker, stopped smoking in distant past Start:28-Apr-2022 Instruction Type:Patient Education Patient Instructions Indication:Former smoker, stopped smoking in distant past Start:04-Jan-2022 Instruction Type:Provider Instructions for Treatment How to Access Health Informa tion Online using Patient Portal and [employer] Apps Indication:Former smoker, stopped smoking in distant past Start:04-Jan-2022 Instruction Type:Patient Education Patient Instructions Indication:Parotid sialolithiasis Start:01-Jul-2021 Instruction Type:Provider Instructions for Treatment How to Access Health Informa tion Online using Patient Portal and [employer] Apps Indication:Parotid sialolithiasis Start:01-Jul-2021 Instruction Type:Patient Education How to Access Health Informa tion Online using Patient Portal and [employer] Apps Indication:Current smoker Start:01-Apr-2021 Instruction Type:Patient Education Patient Instructions Indication:Current smoker Start:01-Apr-2021 Instruction Type:Provider Instructions for Treatment How to access health informa tion online Indication:Current smoker Start:21-Nov-2019 Instruction Type:Patient Education How to access health informa tion online - Detail Indication:Current smoker Start:21-Nov-2019 Instruction Type:Patient Education Patient Instructions Indication:Current smoker Start:21-Nov-2019 Instruction Type:Provider Instructions for Treatment How to access health informa tion online Indication:Benign essential hypertension Start:22-May-2019 Instruction Type:Patient Education How to access health informa tion online - Detail Indication:Benign essential hypertension Start:22-May-2019 Instruction Type:Patient Education Patient Instructions Indication:Benign essential hypertension Start:22-May-2019 Instruction Type:Provider Instructions for Treatment How to access health informa tion online Indication:Body mass index (BMI) 23.0-23.9, adult Start:28-May-2018 Instruction Type:Patient Education How to access health informa tion online - Detail Indication:Body mass index (BMI) 23.0-23.9, adult Start:28-May-2018 Instruction Type:Patient Education Patient Instructions Indication:Body mass index (BMI) 23.0-23.9, adult Start:28-May-2018 Instruction Type:Provider Instructions for Treatment How to access health informa tion online Indication:Well woman exam with routine gynecological exam Start:12-Apr-2018 Instruction Type:Patient Education How to access health informa tion online - Detail Indication:Well woman exam with routine gynecological exam Start:12-Apr-2018 Instruction Type:Patient Education Patient Instructions Indication:Well woman exam with routine gynecological exam Start:12-Apr-2018 Instruction Type:Provider Instructions for Treatment How to access health informa tion online Indication:Current smoker Start:05-Apr-2018 Instruction Type:Patient Education How to access health informa tion online - Detail Indication:Current smoker Start:05-Apr-2018 Instruction Type:Patient Education Patient Instructions Indication:Current smoker Start:05-Apr-2018 Instruction Type:Provider Instructions for Treatment How to access health informa tion online Indication:Current smoker Start:11-Oct-2017 Instruction Type:Patient Education Patient Instructions Indication:Current smoker Start:11-Oct-2017 Instruction Type:Provider Instructions for Treatment How to access health informa tion online Indication:Body mass index (BMI) 23.0-23.9, adult Start:19-Sep-2017 Instruction Type:Patient Education How to access health informa tion online - Detail Indication:Body mass index (BMI) 23.0-23.9, adult Start:19-Sep-2017 Instruction Type:Patient Education Patient Instructions Indication:Body mass index (BMI) 23.0-23.9, adult Start:19-Sep-2017 Instruction Type:Provider Instructions for Treatment How to access health informa tion online Indication:Body mass index (BMI) 23.0-23.9, adult Start:28-Dec-2016 Instruction Type:Patient Education How to access health informa tion online - Detail Indication:Body mass index (BMI) 23.0-23.9, adult Start:28-Dec-2016 Instruction Type:Patient Education Patient Instructions Indication:Body mass index (BMI) 23.0-23.9, adult Start:28-Dec-2016 Instruction Type:Provider Instructions for Treatment How to access health informa tion online Indication:Pre-operative exam (Renamed from Encounter for pre-operative examination) Start:25-May-2016 Instruction Type:Patient Education How to access health informa tion online - Detail Indication:Pre-operative exam (Renamed from Encounter for pre-operative examination) Start:25-May-2016 Instruction Type:Patient Education Patient Instructions Indication:Pre-operative exam (Renamed from Encounter for pre-operative examination) Start:25-May-2016 Instruction Type:Provider Instructions for Treatment How to access health informa tion online Indication:Hyperlipidemia Start:11-Feb-2016 Instruction Type:Patient Education How to access health informa tion online - Detail Indication:Hyperlipidemia Start:11-Feb-2016 Instruction Type:Patient Education Patient Instructions Indication:Hyperlipidemia Start:11-Feb-2016 Instruction Type:Provider Instructions for Treatment How to access health informa tion online Indication:Neck pain Start:28-Dec-2015 Instruction Type:Patient Education How to access health informa tion online - Detail Indication:Neck pain Start:28-Dec-2015 Instruction Type:Patient Education Patient Instructions Indication:Neck pain Start:28-Dec-2015 Instruction Type:Provider Instructions for Treatment How to access health informa tion online Indication:Benign essential hypertension Start:06-Aug-2015 Instruction Type:Patient Education How to access health informa tion online - Detail Indication:Benign essential hypertension Start:06-Aug-2015 Instruction Type:Patient Education Patient Instructions Indication:Benign essential hypertension Start:06-Aug-2015 Instruction Type:Provider Instructions for Treatment Patient Instructions Indication:Well woman exam with routine gynecological exam Start:19-Feb-2015 Instruction Type:Provider Instructions for Treatment Patient Instructions Indication:Shoulder pain, left Start:09-Feb-2015 Instruction Type:Provider Instructions for Treatment Patient Instructions Indication:Screening for breast cancer Start:08-Jan-2015 Instruction Type:Provider Instructions for Treatment How to access health informa tion online Indication:Benign essential hypertension Start:04-Jun-2014 Instruction Type:Patient Education How to access health informa tion online - Detail Indication:Benign essential hypertension Start:04-Jun-2014 Instruction Type:Patient Education Patient Instructions Indication:Benign essential hypertension Start:04-Jun-2014 Instruction Type:Provider Instructions for Treatment Patient Instructions Indication:Benign essential hypertension Start:08-Jul-2013 Instruction Type:Provider Instructions for Treatment Patient Instructions Indication:Benign essential hypertension Start:07-Jan-2013 Instruction Type:Provider Instructions for Treatment Patient Instructions Indication:Hypercholesteremia Start:12-Jul-2012 Instruction Type:Provider Instructions for Treatment Patient Instructions Indication:Benign essential hypertension Start:09-Jul-2012 Instruction Type:Provider Instructions for Treatment [facility] Work Phone: Instructions* Name Dates Details Patient Instructions Indication:Annual Medicare Phyiscal WITHOUT abnormal findings (Renamed from Encounter for general adult medical examination without abnormal findings) Start:12-Jul-2023 Instruction Type:Provider Instructions for Treatment How to Access Health Informa tion Online using Patient Portal and behaview Apps Indication:Annual Medicare Phyiscal WITHOUT abnormal findings (Renamed from Encounter for general adult medical examination without abnormal findings) Start:12-Jul-2023 Instruction Type:Patient Education How to Access Health Informa tion Online using Patient Portal and behaview Apps Indication:Former smoker, stopped smoking in distant past Start:11-Jan-2023 Instruction Type:Patient Education Patient Instructions Indication:Former smoker, stopped smoking in distant past Start:11-Jan-2023 Instruction Type:Provider Instructions for Treatment Patient Instructions Indication:BMI 23.0-23.9, adult Start:14-Aug-2022 Instruction Type:Provider Instructions for Treatment How to Access Health Informa tion Online using Patient Portal and behaview Apps Indication:BMI 23.0-23.9, adult Start:14-Aug-2022 Instruction Type:Patient Education Patient Instructions Indication:Former smoker, stopped smoking in distant past Start:07-Jul-2022 Instruction Type:Provider Instructions for Treatment How to Access Health Informa tion Online using Patient Portal and behaview Apps Indication:Former smoker, stopped smoking in distant past Start:07-Jul-2022 Instruction Type:Patient Education Patient Instructions Indication:Former smoker, stopped smoking in distant past Start:28-Apr-2022 Instruction Type:Provider Instructions for Treatment How to Access Health Informa tion Online using Patient Portal and behaview Apps Indication:Former smoker, stopped smoking in distant past Start:28-Apr-2022 Instruction Type:Patient Education Patient Instructions Indication:Former smoker, stopped smoking in distant past Start:04-Jan-2022 Instruction Type:Provider Instructions for Treatment How to Access Health Informa tion Online using Patient Portal and behaview Apps Indication:Former smoker, stopped smoking in distant past Start:04-Jan-2022 Instruction Type:Patient Education Patient Instructions Indication:Parotid sialolithiasis Start:01-Jul-2021 Instruction Type:Provider Instructions for Treatment How to Access Health Informa tion Online using Patient Portal and behaview Apps Indication:Parotid sialolithiasis Start:01-Jul-2021 Instruction Type:Patient Education How to Access Health Informa tion Online using Patient Portal and behaview Apps Indication:Current smoker Start:01-Apr-2021 Instruction Type:Patient Education Patient Instructions Indication:Current smoker Start:01-Apr-2021 Instruction Type:Provider Instructions for Treatment How to access health informa tion online Indication:Current smoker Start:21-Nov-2019 Instruction Type:Patient Education How to access health informa tion online - Detail Indication:Current smoker Start:21-Nov-2019 Instruction Type:Patient Education Patient Instructions Indication:Current smoker Start:21-Nov-2019 Instruction Type:Provider Instructions for Treatment How to access health informa tion online Indication:Benign essential hypertension Start:22-May-2019 Instruction Type:Patient Education How to access health informa tion online - Detail Indication:Benign essential hypertension Start:22-May-2019 Instruction Type:Patient Education Patient Instructions Indication:Benign essential hypertension Start:22-May-2019 Instruction Type:Provider Instructions for Treatment How to access health informa tion online Indication:Body mass index (BMI) 23.0-23.9, adult Start:28-May-2018 Instruction Type:Patient Education How to access health informa tion online - Detail Indication:Body mass index (BMI) 23.0-23.9, adult Start:28-May-2018 Instruction Type:Patient Education Patient Instructions Indication:Body mass index (BMI) 23.0-23.9, adult Start:28-May-2018 Instruction Type:Provider Instructions for Treatment How to access health informa tion online Indication:Well woman exam with routine gynecological exam Start:12-Apr-2018 Instruction Type:Patient Education How to access health informa tion online - Detail Indication:Well woman exam with routine gynecological exam Start:12-Apr-2018 Instruction Type:Patient Education Patient Instructions Indication:Well woman exam with routine gynecological exam Start:12-Apr-2018 Instruction Type:Provider Instructions for Treatment How to access health informa tion online Indication:Current smoker Start:05-Apr-2018 Instruction Type:Patient Education How to access health informa tion online - Detail Indication:Current smoker Start:05-Apr-2018 Instruction Type:Patient Education Patient Instructions Indication:Current smoker Start:05-Apr-2018 Instruction Type:Provider Instructions for Treatment How to access health informa tion online Indication:Current smoker Start:11-Oct-2017 Instruction Type:Patient Education Patient Instructions Indication:Current smoker Start:11-Oct-2017 Instruction Type:Provider Instructions for Treatment How to access health informa tion online Indication:Body mass index (BMI) 23.0-23.9, adult Start:19-Sep-2017 Instruction Type:Patient Education How to access health informa tion online - Detail Indication:Body mass index (BMI) 23.0-23.9, adult Start:19-Sep-2017 Instruction Type:Patient Education Patient Instructions Indication:Body mass index (BMI) 23.0-23.9, adult Start:19-Sep-2017 Instruction Type:Provider Instructions for Treatment How to access health informa tion online Indication:Body mass index (BMI) 23.0-23.9, adult Start:28-Dec-2016 Instruction Type:Patient Education How to access health informa tion online - Detail Indication:Body mass index (BMI) 23.0-23.9, adult Start:28-Dec-2016 Instruction Type:Patient Education Patient Instructions Indication:Body mass index (BMI) 23.0-23.9, adult Start:28-Dec-2016 Instruction Type:Provider Instructions for Treatment How to access health informa tion online Indication:Pre-operative exam (Renamed from Encounter for pre-operative examination) Start:25-May-2016 Instruction Type:Patient Education How to access health informa tion online - Detail Indication:Pre-operative exam (Renamed from Encounter for pre-operative examination) Start:25-May-2016 Instruction Type:Patient Education Patient Instructions Indication:Pre-operative exam (Renamed from Encounter for pre-operative examination) Start:25-May-2016 Instruction Type:Provider Instructions for Treatment How to access health informa tion online Indication:Hyperlipidemia Start:11-Feb-2016 Instruction Type:Patient Education How to access health informa tion online - Detail Indication:Hyperlipidemia Start:11-Feb-2016 Instruction Type:Patient Education Patient Instructions Indication:Hyperlipidemia Start:11-Feb-2016 Instruction Type:Provider Instructions for Treatment How to access health informa tion online Indication:Neck pain Start:28-Dec-2015 Instruction Type:Patient Education How to access health informa tion online - Detail Indication:Neck pain Start:28-Dec-2015 Instruction Type:Patient Education Patient Instructions Indication:Neck pain Start:28-Dec-2015 Instruction Type:Provider Instructions for Treatment How to access health informa tion online Indication:Benign essential hypertension Start:06-Aug-2015 Instruction Type:Patient Education How to access health informa tion online - Detail Indication:Benign essential hypertension Start:06-Aug-2015 Instruction Type:Patient Education Patient Instructions Indication:Benign essential hypertension Start:06-Aug-2015 Instruction Type:Provider Instructions for Treatment Patient Instructions Indication:Well woman exam with routine gynecological exam Start:19-Feb-2015 Instruction Type:Provider Instructions for Treatment Patient Instructions Indication:Shoulder pain, left Start:09-Feb-2015 Instruction Type:Provider Instructions for Treatment Patient Instructions Indication:Screening for breast cancer Start:08-Jan-2015 Instruction Type:Provider Instructions for Treatment How to access health informa tion online Indication:Benign essential hypertension Start:04-Jun-2014 Instruction Type:Patient Education How to access health informa tion online - Detail Indication:Benign essential hypertension Start:04-Jun-2014 Instruction Type:Patient Education Patient Instructions Indication:Benign essential hypertension Start:04-Jun-2014 Instruction Type:Provider Instructions for Treatment Patient Instructions Indication:Benign essential hypertension Start:08-Jul-2013 Instruction Type:Provider Instructions for Treatment Patient Instructions Indication:Benign essential hypertension Start:07-Jan-2013 Instruction Type:Provider Instructions for Treatment Patient Instructions Indication:Hypercholesteremia Start:12-Jul-2012 Instruction Type:Provider Instructions for Treatment Patient Instructions Indication:Benign essential hypertension Start:09-Jul-2012 Instruction Type:Provider Instructions for Treatment [facility] Work Phone: reason for visit Narrative* Imaging (Routine) - Authorized Specialty Diagnoses / Procedures Referred By Contac t Referred To Contact Radiology Diagnoses Essential (primary) hypertension Procedures CT cardiac scoring wo IV contrast Iman Nazario DO [address] [address] Phone: tel: fax: Referral ID Status Reason Start Date Expiration Date Visits Requested Visits Authorized [id number] Authorized Perform Procedure 4 08/07/2025 1 1 [facility] Work Phone: Family History No Family History Records FoundUnknown Family Member Name Dates Details Father Comments:HTN, throat cancer smoker inpast Status:Active Mother Comments:HTN, osteoporosis Status:Active Sister 1 Comments:afib Status:Active Unknown Family Member Name Dates Details Father Comments:HTN, throat cancer smoker inpast Status:Active Mother Comments:HTN, osteoporosis Status:Active Sister 1 Comments:afib Status:Active Unknown Family Member Name Dates Details Father Comments:HTN, throat cancer smoker inpast Status:Active Mother Comments:HTN, osteoporosis Status:Active Sister 1 Comments:afib Status:Active Unknown Family Member Name Dates Details Father Comments:HTN, throat cancer smoker inpast Status:Active Mother Comments:HTN, osteoporosis Status:Active Sister 1 Comments:afib Status:Active Unknown Family Member Name Dates Details Father Comments:HTN, throat cancer smoker inpast Status:Active Mother Comments:HTN, osteoporosis Status:Active Sister 1 Comments:afib Status:Active Unknown Family Member Name Dates Details Father Comments:HTN, throat cancer smoker inpast Status:Active Mother Comments:HTN, osteoporosis Status:Active Sister 1 Comments:afib Status:Active Unknown Family Member Name Dates Details Father Comments:HTN, throat cancer smoker inpast Status:Active Mother Comments:HTN, osteoporosis Status:Active Sister 1 Comments:afib Status:Active Unknown Family Member Name Dates Details Father Comments:HTN, throat cancer smoker inpast Status:Active Mother Comments:HTN, osteoporosis Status:Active Sister 1 Comments:afib Status:Active Unknown Family Member Name Dates Details Father Comments:HTN, throat cancer smoker inpast Status:Active Mother Comments:HTN, osteoporosis Status:Active Sister 1 Comments:afib Status:Active Unknown Family Member Name Dates Details Father Comments:HTN, throat cancer smoker inpast Status:Active Mother Comments:HTN, osteoporosis Status:Active Sister 1 Comments:afib Status:Active Unknown Family Member Name Dates Details Father Comments:HTN, throat cancer smoker inpast Status:Active Mother Comments:HTN, osteoporosis Status:Active Sister 1 Comments:afib Status:Active Relationship Condition Age at Onset Recorded Date/T eleuterio Not Specified Hypertension Unknown father Malignant neoplasm Unknown Unknown Family Member Name Dates Details Father Comments:HTN, throat cancer smoker inpast Status:Active Mother Comments:HTN, osteoporosis Status:Active Sister 1 Comments:afib Status:Active Unknown Family Member Name Dates Details Father Comments:HTN, throat cancer smoker inpast Status:Active Mother Comments:HTN, osteoporosis Status:Active Sister 1 Comments:afib Status:Active Unknown Family Member Name Dates Details Father Comments:HTN, throat cancer smoker inpast Status:Active Mother Comments:HTN, osteoporosis Status:Active Sister 1 Comments:afib Status:Active Unknown Family Member Name Dates Details Father Comments:HTN, throat cancer smoker inpast Status:Active Mother Comments:HTN, osteoporosis Status:Active Sister 1 Comments:afib Status:Active Unknown Family Member Name Dates Details Father Comments:HTN, throat cancer smoker inpast Status:Active Mother Comments:HTN, osteoporosis Status:Active Sister 1 Comments:afib Status:Active Unknown Family Member Name Dates Details Father Comments:HTN, throat cancer smoker inpast Status:Active Mother Comments:HTN, osteoporosis Status:Active Sister 1 Comments:afib Status:Active Unknown Family Member Name Dates Details Father Comments:HTN, throat cancer smoker inpast Status:Active Mother Comments:HTN, osteoporosis Status:Active Sister 1 Comments:afib Status:Active Unknown Family Member Name Dates Details Father Comments:HTN, throat cancer smoker inpast Status:Active Mother Comments:HTN, osteoporosis Status:Active Sister 1 Comments:afib Status:Active Unknown Family Member Name Dates Details Father Comments:HTN, throat cancer smoker inpast Status:Active Mother Comments:HTN, osteoporosis Status:Active Sister 1 Comments:afib Status:Active Unknown Family Member Name Dates Details Father Comments:HTN, throat cancer smoker inpast Status:Active Mother Comments:HTN, osteoporosis Status:Active Sister 1 Comments:afib Status:Active Instructions Name Dates Details How to access health informa tion online Indication:Body mass index (BMI) 23.0-23.9, adult Start:28-May-2018 Instruction Type:Patient Education How to access health informa tion online - Detail Indication:Body mass index (BMI) 23.0-23.9, adult Start:28-May-2018 Instruction Type:Patient Education Patient Instructions Indication:Body mass index (BMI) 23.0-23.9, adult Start:28-May-2018 Instruction Type:Provider Instructions for Treatment How to access health informa tion online Indication:Well woman exam with routine gynecological exam Start:12-Apr-2018 Instruction Type:Patient Education How to access health informa tion online - Detail Indication:Well woman exam with routine gynecological exam Start:12-Apr-2018 Instruction Type:Patient Education Patient Instructions Indication:Well woman exam with routine gynecological exam Start:12-Apr-2018 Instruction Type:Provider Instructions for Treatment How to access health informa tion online Indication:Current smoker Start:05-Apr-2018 Instruction Type:Patient Education How to access health informa tion online - Detail Indication:Current smoker Start:05-Apr-2018 Instruction Type:Patient Education Patient Instructions Indication:Current smoker Start:05-Apr-2018 Instruction Type:Provider Instructions for Treatment How to access health informa tion online Indication:Current smoker Start:11-Oct-2017 Instruction Type:Patient Education Patient Instructions Indication:Current smoker Start:11-Oct-2017 Instruction Type:Provider Instructions for Treatment How to access health informa tion online Indication:Body mass index (BMI) 23.0-23.9, adult Start:19-Sep-2017 Instruction Type:Patient Education How to access health informa tion online - Detail Indication:Body mass index (BMI) 23.0-23.9, adult Start:19-Sep-2017 Instruction Type:Patient Education Patient Instructions Indication:Body mass index (BMI) 23.0-23.9, adult Start:19-Sep-2017 Instruction Type:Provider Instructions for Treatment How to access health informa tion online Indication:Body mass index (BMI) 23.0-23.9, adult Start:28-Dec-2016 Instruction Type:Patient Education How to access health informa tion online - Detail Indication:Body mass index (BMI) 23.0-23.9, adult Start:28-Dec-2016 Instruction Type:Patient Education Patient Instructions Indication:Body mass index (BMI) 23.0-23.9, adult Start:28-Dec-2016 Instruction Type:Provider Instructions for Treatment How to access health informa tion online Indication:Pre-operative exam (Renamed from Encounter for pre-operative examination) Start:25-May-2016 Instruction Type:Patient Education How to access health informa tion online - Detail Indication:Pre-operative exam (Renamed from Encounter for pre-operative examination) Start:25-May-2016 Instruction Type:Patient Education Patient Instructions Indication:Pre-operative exam (Renamed from Encounter for pre-operative examination) Start:25-May-2016 Instruction Type:Provider Instructions for Treatment How to access health informa tion online Indication:Hyperlipidemia Start:11-Feb-2016 Instruction Type:Patient Education How to access health informa tion online - Detail Indication:Hyperlipidemia Start:11-Feb-2016 Instruction Type:Patient Education Patient Instructions Indication:Hyperlipidemia Start:11-Feb-2016 Instruction Type:Provider Instructions for Treatment How to access health informa tion online Indication:Neck pain Start:28-Dec-2015 Instruction Type:Patient Education How to access health informa tion online - Detail Indication:Neck pain Start:28-Dec-2015 Instruction Type:Patient Education Patient Instructions Indication:Neck pain Start:28-Dec-2015 Instruction Type:Provider Instructions for Treatment How to access health informa tion online Indication:Benign essential hypertension Start:06-Aug-2015 Instruction Type:Patient Education How to access health informa tion online - Detail Indication:Benign essential hypertension Start:06-Aug-2015 Instruction Type:Patient Education Patient Instructions Indication:Benign essential hypertension Start:06-Aug-2015 Instruction Type:Provider Instructions for Treatment Patient Instructions Indication:Well woman exam with routine gynecological exam Start:19-Feb-2015 Instruction Type:Provider Instructions for Treatment Patient Instructions Indication:Shoulder pain, left Start:09-Feb-2015 Instruction Type:Provider Instructions for Treatment Patient Instructions Indication:Screening for breast cancer Start:08-Jan-2015 Instruction Type:Provider Instructions for Treatment How to access health informa tion online Indication:Benign essential hypertension Start:04-Jun-2014 Instruction Type:Patient Education How to access health informa tion online - Detail Indication:Benign essential hypertension Start:04-Jun-2014 Instruction Type:Patient Education Patient Instructions Indication:Benign essential hypertension Start:04-Jun-2014 Instruction Type:Provider Instructions for Treatment Patient Instructions Indication:Benign essential hypertension Start:08-Jul-2013 Instruction Type:Provider Instructions for Treatment Patient Instructions Indication:Benign essential hypertension Start:07-Jan-2013 Instruction Type:Provider Instructions for Treatment Patient Instructions Indication:Hypercholesteremia Start:12-Jul-2012 Instruction Type:Provider Instructions for Treatment Patient Instructions Indication:Benign essential hypertension Start:09-Jul-2012 Instruction Type:Provider Instructions for Treatment Name Dates Details How to access health informa tion online Indication:Benign essential hypertension Start:22-May-2019 Instruction Type:Patient Education How to access health informa tion online - Detail Indication:Benign essential hypertension Start:22-May-2019 Instruction Type:Patient Education Patient Instructions Indication:Benign essential hypertension Start:22-May-2019 Instruction Type:Provider Instructions for Treatment How to access health informa tion online Indication:Body mass index (BMI) 23.0-23.9, adult Start:28-May-2018 Instruction Type:Patient Education How to access health informa tion online - Detail Indication:Body mass index (BMI) 23.0-23.9, adult Start:28-May-2018 Instruction Type:Patient Education Patient Instructions Indication:Body mass index (BMI) 23.0-23.9, adult Start:28-May-2018 Instruction Type:Provider Instructions for Treatment How to access health informa tion online Indication:Well woman exam with routine gynecological exam Start:12-Apr-2018 Instruction Type:Patient Education How to access health informa tion online - Detail Indication:Well woman exam with routine gynecological exam Start:12-Apr-2018 Instruction Type:Patient Education Patient Instructions Indication:Well woman exam with routine gynecological exam Start:12-Apr-2018 Instruction Type:Provider Instructions for Treatment How to access health informa tion online Indication:Current smoker Start:05-Apr-2018 Instruction Type:Patient Education How to access health informa tion online - Detail Indication:Current smoker Start:05-Apr-2018 Instruction Type:Patient Education Patient Instructions Indication:Current smoker Start:05-Apr-2018 Instruction Type:Provider Instructions for Treatment How to access health informa tion online Indication:Current smoker Start:11-Oct-2017 Instruction Type:Patient Education Patient Instructions Indication:Current smoker Start:11-Oct-2017 Instruction Type:Provider Instructions for Treatment How to access health informa tion online Indication:Body mass index (BMI) 23.0-23.9, adult Start:19-Sep-2017 Instruction Type:Patient Education How to access health informa tion online - Detail Indication:Body mass index (BMI) 23.0-23.9, adult Start:19-Sep-2017 Instruction Type:Patient Education Patient Instructions Indication:Body mass index (BMI) 23.0-23.9, adult Start:19-Sep-2017 Instruction Type:Provider Instructions for Treatment How to access health informa tion online Indication:Body mass index (BMI) 23.0-23.9, adult Start:28-Dec-2016 Instruction Type:Patient Education How to access health informa tion online - Detail Indication:Body mass index (BMI) 23.0-23.9, adult Start:28-Dec-2016 Instruction Type:Patient Education Patient Instructions Indication:Body mass index (BMI) 23.0-23.9, adult Start:28-Dec-2016 Instruction Type:Provider Instructions for Treatment How to access health informa tion online Indication:Pre-operative exam (Renamed from Encounter for pre-operative examination) Start:25-May-2016 Instruction Type:Patient Education How to access health informa tion online - Detail Indication:Pre-operative exam (Renamed from Encounter for pre-operative examination) Start:25-May-2016 Instruction Type:Patient Education Patient Instructions Indication:Pre-operative exam (Renamed from Encounter for pre-operative examination) Start:25-May-2016 Instruction Type:Provider Instructions for Treatment How to access health informa tion online Indication:Hyperlipidemia Start:11-Feb-2016 Instruction Type:Patient Education How to access health informa tion online - Detail Indication:Hyperlipidemia Start:11-Feb-2016 Instruction Type:Patient Education Patient Instructions Indication:Hyperlipidemia Start:11-Feb-2016 Instruction Type:Provider Instructions for Treatment How to access health informa tion online Indication:Neck pain Start:28-Dec-2015 Instruction Type:Patient Education How to access health informa tion online - Detail Indication:Neck pain Start:28-Dec-2015 Instruction Type:Patient Education Patient Instructions Indication:Neck pain Start:28-Dec-2015 Instruction Type:Provider Instructions for Treatment How to access health informa tion online Indication:Benign essential hypertension Start:06-Aug-2015 Instruction Type:Patient Education How to access health informa tion online - Detail Indication:Benign essential hypertension Start:06-Aug-2015 Instruction Type:Patient Education Patient Instructions Indication:Benign essential hypertension Start:06-Aug-2015 Instruction Type:Provider Instructions for Treatment Patient Instructions Indication:Well woman exam with routine gynecological exam Start:19-Feb-2015 Instruction Type:Provider Instructions for Treatment Patient Instructions Indication:Shoulder pain, left Start:09-Feb-2015 Instruction Type:Provider Instructions for Treatment Patient Instructions Indication:Screening for breast cancer Start:08-Jan-2015 Instruction Type:Provider Instructions for Treatment How to access health informa tion online Indication:Benign essential hypertension Start:04-Jun-2014 Instruction Type:Patient Education How to access health informa tion online - Detail Indication:Benign essential hypertension Start:04-Jun-2014 Instruction Type:Patient Education Patient Instructions Indication:Benign essential hypertension Start:04-Jun-2014 Instruction Type:Provider Instructions for Treatment Patient Instructions Indication:Benign essential hypertension Start:08-Jul-2013 Instruction Type:Provider Instructions for Treatment Patient Instructions Indication:Benign essential hypertension Start:07-Jan-2013 Instruction Type:Provider Instructions for Treatment Patient Instructions Indication:Hypercholesteremia Start:12-Jul-2012 Instruction Type:Provider Instructions for Treatment Patient Instructions Indication:Benign essential hypertension Start:09-Jul-2012 Instruction Type:Provider Instructions for Treatment Name Dates Details How to access health informa tion online Indication:Benign essential hypertension Start:22-May-2019 Instruction Type:Patient Education How to access health informa tion online - Detail Indication:Benign essential hypertension Start:22-May-2019 Instruction Type:Patient Education Patient Instructions Indication:Benign essential hypertension Start:22-May-2019 Instruction Type:Provider Instructions for Treatment How to access health informa tion online Indication:Body mass index (BMI) 23.0-23.9, adult Start:28-May-2018 Instruction Type:Patient Education How to access health informa tion online - Detail Indication:Body mass index (BMI) 23.0-23.9, adult Start:28-May-2018 Instruction Type:Patient Education Patient Instructions Indication:Body mass index (BMI) 23.0-23.9, adult Start:28-May-2018 Instruction Type:Provider Instructions for Treatment How to access health informa tion online Indication:Well woman exam with routine gynecological exam Start:12-Apr-2018 Instruction Type:Patient Education How to access health informa tion online - Detail Indication:Well woman exam with routine gynecological exam Start:12-Apr-2018 Instruction Type:Patient Education Patient Instructions Indication:Well woman exam with routine gynecological exam Start:12-Apr-2018 Instruction Type:Provider Instructions for Treatment How to access health informa tion online Indication:Current smoker Start:05-Apr-2018 Instruction Type:Patient Education How to access health informa tion online - Detail Indication:Current smoker Start:05-Apr-2018 Instruction Type:Patient Education Patient Instructions Indication:Current smoker Start:05-Apr-2018 Instruction Type:Provider Instructions for Treatment How to access health informa tion online Indication:Current smoker Start:11-Oct-2017 Instruction Type:Patient Education Patient Instructions Indication:Current smoker Start:11-Oct-2017 Instruction Type:Provider Instructions for Treatment How to access health informa tion online Indication:Body mass index (BMI) 23.0-23.9, adult Start:19-Sep-2017 Instruction Type:Patient Education How to access health informa tion online - Detail Indication:Body mass index (BMI) 23.0-23.9, adult Start:19-Sep-2017 Instruction Type:Patient Education Patient Instructions Indication:Body mass index (BMI) 23.0-23.9, adult Start:19-Sep-2017 Instruction Type:Provider Instructions for Treatment How to access health informa tion online Indication:Body mass index (BMI) 23.0-23.9, adult Start:28-Dec-2016 Instruction Type:Patient Education How to access health informa tion online - Detail Indication:Body mass index (BMI) 23.0-23.9, adult Start:28-Dec-2016 Instruction Type:Patient Education Patient Instructions Indication:Body mass index (BMI) 23.0-23.9, adult Start:28-Dec-2016 Instruction Type:Provider Instructions for Treatment How to access health informa tion online Indication:Pre-operative exam (Renamed from Encounter for pre-operative examination) Start:25-May-2016 Instruction Type:Patient Education How to access health informa tion online - Detail Indication:Pre-operative exam (Renamed from Encounter for pre-operative examination) Start:25-May-2016 Instruction Type:Patient Education Patient Instructions Indication:Pre-operative exam (Renamed from Encounter for pre-operative examination) Start:25-May-2016 Instruction Type:Provider Instructions for Treatment How to access health informa tion online Indication:Hyperlipidemia Start:11-Feb-2016 Instruction Type:Patient Education How to access health informa tion online - Detail Indication:Hyperlipidemia Start:11-Feb-2016 Instruction Type:Patient Education Patient Instructions Indication:Hyperlipidemia Start:11-Feb-2016 Instruction Type:Provider Instructions for Treatment How to access health informa tion online Indication:Neck pain Start:28-Dec-2015 Instruction Type:Patient Education How to access health informa tion online - Detail Indication:Neck pain Start:28-Dec-2015 Instruction Type:Patient Education Patient Instructions Indication:Neck pain Start:28-Dec-2015 Instruction Type:Provider Instructions for Treatment How to access health informa tion online Indication:Benign essential hypertension Start:06-Aug-2015 Instruction Type:Patient Education How to access health informa tion online - Detail Indication:Benign essential hypertension Start:06-Aug-2015 Instruction Type:Patient Education Patient Instructions Indication:Benign essential hypertension Start:06-Aug-2015 Instruction Type:Provider Instructions for Treatment Patient Instructions Indication:Well woman exam with routine gynecological exam Start:19-Feb-2015 Instruction Type:Provider Instructions for Treatment Patient Instructions Indication:Shoulder pain, left Start:09-Feb-2015 Instruction Type:Provider Instructions for Treatment Patient Instructions Indication:Screening for breast cancer Start:08-Jan-2015 Instruction Type:Provider Instructions for Treatment How to access health informa tion online Indication:Benign essential hypertension Start:04-Jun-2014 Instruction Type:Patient Education How to access health informa tion online - Detail Indication:Benign essential hypertension Start:04-Jun-2014 Instruction Type:Patient Education Patient Instructions Indication:Benign essential hypertension Start:04-Jun-2014 Instruction Type:Provider Instructions for Treatment Patient Instructions Indication:Benign essential hypertension Start:08-Jul-2013 Instruction Type:Provider Instructions for Treatment Patient Instructions Indication:Benign essential hypertension Start:07-Jan-2013 Instruction Type:Provider Instructions for Treatment Patient Instructions Indication:Hypercholesteremia Start:12-Jul-2012 Instruction Type:Provider Instructions for Treatment Patient Instructions Indication:Benign essential hypertension Start:09-Jul-2012 Instruction Type:Provider Instructions for Treatment Name Dates Details How to access health informa tion online Indication:Current smoker Start:21-Nov-2019 Instruction Type:Patient Education How to access health informa tion online - Detail Indication:Current smoker Start:21-Nov-2019 Instruction Type:Patient Education Patient Instructions Indication:Current smoker Start:21-Nov-2019 Instruction Type:Provider Instructions for Treatment How to access health informa tion online Indication:Benign essential hypertension Start:22-May-2019 Instruction Type:Patient Education How to access health informa tion online - Detail Indication:Benign essential hypertension Start:22-May-2019 Instruction Type:Patient Education Patient Instructions Indication:Benign essential hypertension Start:22-May-2019 Instruction Type:Provider Instructions for Treatment How to access health informa tion online Indication:Body mass index (BMI) 23.0-23.9, adult Start:28-May-2018 Instruction Type:Patient Education How to access health informa tion online - Detail Indication:Body mass index (BMI) 23.0-23.9, adult Start:28-May-2018 Instruction Type:Patient Education Patient Instructions Indication:Body mass index (BMI) 23.0-23.9, adult Start:28-May-2018 Instruction Type:Provider Instructions for Treatment How to access health informa tion online Indication:Well woman exam with routine gynecological exam Start:12-Apr-2018 Instruction Type:Patient Education How to access health informa tion online - Detail Indication:Well woman exam with routine gynecological exam Start:12-Apr-2018 Instruction Type:Patient Education Patient Instructions Indication:Well woman exam with routine gynecological exam Start:12-Apr-2018 Instruction Type:Provider Instructions for Treatment How to access health informa tion online Indication:Current smoker Start:05-Apr-2018 Instruction Type:Patient Education How to access health informa tion online - Detail Indication:Current smoker Start:05-Apr-2018 Instruction Type:Patient Education Patient Instructions Indication:Current smoker Start:05-Apr-2018 Instruction Type:Provider Instructions for Treatment How to access health informa tion online Indication:Current smoker Start:11-Oct-2017 Instruction Type:Patient Education Patient Instructions Indication:Current smoker Start:11-Oct-2017 Instruction Type:Provider Instructions for Treatment How to access health informa tion online Indication:Body mass index (BMI) 23.0-23.9, adult Start:19-Sep-2017 Instruction Type:Patient Education How to access health informa tion online - Detail Indication:Body mass index (BMI) 23.0-23.9, adult Start:19-Sep-2017 Instruction Type:Patient Education Patient Instructions Indication:Body mass index (BMI) 23.0-23.9, adult Start:19-Sep-2017 Instruction Type:Provider Instructions for Treatment How to access health informa tion online Indication:Body mass index (BMI) 23.0-23.9, adult Start:28-Dec-2016 Instruction Type:Patient Education How to access health informa tion online - Detail Indication:Body mass index (BMI) 23.0-23.9, adult Start:28-Dec-2016 Instruction Type:Patient Education Patient Instructions Indication:Body mass index (BMI) 23.0-23.9, adult Start:28-Dec-2016 Instruction Type:Provider Instructions for Treatment How to access health informa tion online Indication:Pre-operative exam (Renamed from Encounter for pre-operative examination) Start:25-May-2016 Instruction Type:Patient Education How to access health informa tion online - Detail Indication:Pre-operative exam (Renamed from Encounter for pre-operative examination) Start:25-May-2016 Instruction Type:Patient Education Patient Instructions Indication:Pre-operative exam (Renamed from Encounter for pre-operative examination) Start:25-May-2016 Instruction Type:Provider Instructions for Treatment How to access health informa tion online Indication:Hyperlipidemia Start:11-Feb-2016 Instruction Type:Patient Education How to access health informa tion online - Detail Indication:Hyperlipidemia Start:11-Feb-2016 Instruction Type:Patient Education Patient Instructions Indication:Hyperlipidemia Start:11-Feb-2016 Instruction Type:Provider Instructions for Treatment How to access health informa tion online Indication:Neck pain Start:28-Dec-2015 Instruction Type:Patient Education How to access health informa tion online - Detail Indication:Neck pain Start:28-Dec-2015 Instruction Type:Patient Education Patient Instructions Indication:Neck pain Start:28-Dec-2015 Instruction Type:Provider Instructions for Treatment How to access health informa tion online Indication:Benign essential hypertension Start:06-Aug-2015 Instruction Type:Patient Education How to access health informa tion online - Detail Indication:Benign essential hypertension Start:06-Aug-2015 Instruction Type:Patient Education Patient Instructions Indication:Benign essential hypertension Start:06-Aug-2015 Instruction Type:Provider Instructions for Treatment Patient Instructions Indication:Well woman exam with routine gynecological exam Start:19-Feb-2015 Instruction Type:Provider Instructions for Treatment Patient Instructions Indication:Shoulder pain, left Start:09-Feb-2015 Instruction Type:Provider Instructions for Treatment Patient Instructions Indication:Screening for breast cancer Start:08-Jan-2015 Instruction Type:Provider Instructions for Treatment How to access health informa tion online Indication:Benign essential hypertension Start:04-Jun-2014 Instruction Type:Patient Education How to access health informa tion online - Detail Indication:Benign essential hypertension Start:04-Jun-2014 Instruction Type:Patient Education Patient Instructions Indication:Benign essential hypertension Start:04-Jun-2014 Instruction Type:Provider Instructions for Treatment Patient Instructions Indication:Benign essential hypertension Start:08-Jul-2013 Instruction Type:Provider Instructions for Treatment Patient Instructions Indication:Benign essential hypertension Start:07-Jan-2013 Instruction Type:Provider Instructions for Treatment Patient Instructions Indication:Hypercholesteremia Start:12-Jul-2012 Instruction Type:Provider Instructions for Treatment Patient Instructions Indication:Benign essential hypertension Start:09-Jul-2012 Instruction Type:Provider Instructions for Treatment Name Dates Details Body mass index (BMI) 23.0-2 3.9, adult : How to access health information online Indication:Body mass index (BMI) 23.0-23.9, adult Body mass index (BMI) 23.0-2 3.9, adult : How to access health information online - Detail Indication:Body mass index (BMI) 23.0-23.9, adult Body mass index (BMI) 23.0-2 3.9, adult : Patient Instructions Indication:Body mass index (BMI) 23.0-23.9, adult Well woman exam with routine gynecological exam : How to access health information online Indication:Well woman exam with routine gynecological exam Well woman exam with routine gynecological exam : How to access health information online - Detail Indication:Well woman exam with routine gynecological exam Well woman exam with routine gynecological exam : Patient Instructions Indication:Well woman exam with routine gynecological exam Current smoker : How to acce ss health information online Indication:Current smoker Current smoker : How to acce ss health information online - Detail Indication:Current smoker Current smoker : Patient Ins tructions Indication:Current smoker Pre-operative exam (Renamed from Encounter for pre-operative examination) : How to access health information online Indication:Pre-operative exam (Renamed from Encounter for pre-operative examination) Pre-operative exam (Renamed from Encounter for pre-operative examination) : How to access health information online - Detail Indication:Pre-operative exam (Renamed from Encounter for pre-operative examination) Pre-operative exam (Renamed from Encounter for pre-operative examination) : Patient Instructions Indication:Pre-operative exam (Renamed from Encounter for pre-operative examination) Hyperlipidemia : How to acce ss health information online Indication:Hyperlipidemia Hyperlipidemia : How to acce ss health information online - Detail Indication:Hyperlipidemia Hyperlipidemia : Patient Ins tructions Indication:Hyperlipidemia Neck pain : How to access he alth information online Indication:Neck pain Neck pain : How to access he alth information online - Detail Indication:Neck pain Neck pain : Patient Instruct ions Indication:Neck pain Benign essential hypertensio n : How to access health information online Indication:Benign essential hypertension Benign essential hypertensio n : How to access health information online - Detail Indication:Benign essential hypertension Benign essential hypertensio n : Patient Instructions Indication:Benign essential hypertension Shoulder pain, left : Patien t Instructions Indication:Shoulder pain, left Screening for breast cancer : Patient Instructions Indication:Screening for breast cancer Hypercholesteremia : Patient Instructions Indication:Hypercholesteremia Name Dates Details How to access health informa tion online Indication:Current smoker Start:21-Nov-2019 Instruction Type:Patient Education How to access health informa tion online - Detail Indication:Current smoker Start:21-Nov-2019 Instruction Type:Patient Education Patient Instructions Indication:Current smoker Start:21-Nov-2019 Instruction Type:Provider Instructions for Treatment How to access health informa tion online Indication:Benign essential hypertension Start:22-May-2019 Instruction Type:Patient Education How to access health informa tion online - Detail Indication:Benign essential hypertension Start:22-May-2019 Instruction Type:Patient Education Patient Instructions Indication:Benign essential hypertension Start:22-May-2019 Instruction Type:Provider Instructions for Treatment How to access health informa tion online Indication:Body mass index (BMI) 23.0-23.9, adult Start:28-May-2018 Instruction Type:Patient Education How to access health informa tion online - Detail Indication:Body mass index (BMI) 23.0-23.9, adult Start:28-May-2018 Instruction Type:Patient Education Patient Instructions Indication:Body mass index (BMI) 23.0-23.9, adult Start:28-May-2018 Instruction Type:Provider Instructions for Treatment How to access health informa tion online Indication:Well woman exam with routine gynecological exam Start:12-Apr-2018 Instruction Type:Patient Education How to access health informa tion online - Detail Indication:Well woman exam with routine gynecological exam Start:12-Apr-2018 Instruction Type:Patient Education Patient Instructions Indication:Well woman exam with routine gynecological exam Start:12-Apr-2018 Instruction Type:Provider Instructions for Treatment How to access health informa tion online Indication:Current smoker Start:05-Apr-2018 Instruction Type:Patient Education How to access health informa tion online - Detail Indication:Current smoker Start:05-Apr-2018 Instruction Type:Patient Education Patient Instructions Indication:Current smoker Start:05-Apr-2018 Instruction Type:Provider Instructions for Treatment How to access health informa tion online Indication:Current smoker Start:11-Oct-2017 Instruction Type:Patient Education Patient Instructions Indication:Current smoker Start:11-Oct-2017 Instruction Type:Provider Instructions for Treatment How to access health informa tion online Indication:Body mass index (BMI) 23.0-23.9, adult Start:19-Sep-2017 Instruction Type:Patient Education How to access health informa tion online - Detail Indication:Body mass index (BMI) 23.0-23.9, adult Start:19-Sep-2017 Instruction Type:Patient Education Patient Instructions Indication:Body mass index (BMI) 23.0-23.9, adult Start:19-Sep-2017 Instruction Type:Provider Instructions for Treatment How to access health informa tion online Indication:Body mass index (BMI) 23.0-23.9, adult Start:28-Dec-2016 Instruction Type:Patient Education How to access health informa tion online - Detail Indication:Body mass index (BMI) 23.0-23.9, adult Start:28-Dec-2016 Instruction Type:Patient Education Patient Instructions Indication:Body mass index (BMI) 23.0-23.9, adult Start:28-Dec-2016 Instruction Type:Provider Instructions for Treatment How to access health informa tion online Indication:Pre-operative exam (Renamed from Encounter for pre-operative examination) Start:25-May-2016 Instruction Type:Patient Education How to access health informa tion online - Detail Indication:Pre-operative exam (Renamed from Encounter for pre-operative examination) Start:25-May-2016 Instruction Type:Patient Education Patient Instructions Indication:Pre-operative exam (Renamed from Encounter for pre-operative examination) Start:25-May-2016 Instruction Type:Provider Instructions for Treatment How to access health informa tion online Indication:Hyperlipidemia Start:11-Feb-2016 Instruction Type:Patient Education How to access health informa tion online - Detail Indication:Hyperlipidemia Start:11-Feb-2016 Instruction Type:Patient Education Patient Instructions Indication:Hyperlipidemia Start:11-Feb-2016 Instruction Type:Provider Instructions for Treatment How to access health informa tion online Indication:Neck pain Start:28-Dec-2015 Instruction Type:Patient Education How to access health informa tion online - Detail Indication:Neck pain Start:28-Dec-2015 Instruction Type:Patient Education Patient Instructions Indication:Neck pain Start:28-Dec-2015 Instruction Type:Provider Instructions for Treatment How to access health informa tion online Indication:Benign essential hypertension Start:06-Aug-2015 Instruction Type:Patient Education How to access health informa tion online - Detail Indication:Benign essential hypertension Start:06-Aug-2015 Instruction Type:Patient Education Patient Instructions Indication:Benign essential hypertension Start:06-Aug-2015 Instruction Type:Provider Instructions for Treatment Patient Instructions Indication:Well woman exam with routine gynecological exam Start:19-Feb-2015 Instruction Type:Provider Instructions for Treatment Patient Instructions Indication:Shoulder pain, left Start:09-Feb-2015 Instruction Type:Provider Instructions for Treatment Patient Instructions Indication:Screening for breast cancer Start:08-Jan-2015 Instruction Type:Provider Instructions for Treatment How to access health informa tion online Indication:Benign essential hypertension Start:04-Jun-2014 Instruction Type:Patient Education How to access health informa tion online - Detail Indication:Benign essential hypertension Start:04-Jun-2014 Instruction Type:Patient Education Patient Instructions Indication:Benign essential hypertension Start:04-Jun-2014 Instruction Type:Provider Instructions for Treatment Patient Instructions Indication:Benign essential hypertension Start:08-Jul-2013 Instruction Type:Provider Instructions for Treatment Patient Instructions Indication:Benign essential hypertension Start:07-Jan-2013 Instruction Type:Provider Instructions for Treatment Patient Instructions Indication:Hypercholesteremia Start:12-Jul-2012 Instruction Type:Provider Instructions for Treatment Patient Instructions Indication:Benign essential hypertension Start:09-Jul-2012 Instruction Type:Provider Instructions for Treatment Advance Directives No Advanced Directives Records Found Name Dates Details Immunization Registry [place] - Effective on 12/07/2020. Expiration date unspecified Effective:07-Dec-2020 Name Dates Details Immunization Registry [place] - Effective on 12/07/2020. Expiration date unspecified Effective:07-Dec-2020 Name Dates Details Immunization Registry [place] - Effective on 12/07/2020. Expiration date unspecified Effective:07-Dec-2020 Name Dates Details Immunization Registry [place] - Effective on 12/07/2020. Expiration date unspecified Effective:07-Dec-2020 Name Dates Details Immunization Registry [place] - Effective on 12/07/2020. Expiration date unspecified Effective:07-Dec-2020 Name Dates Details Immunization Registry [place] - Effective on 12/07/2020. Expiration date unspecified Effective:07-Dec-2020 Advance Directive Response Recorded Date/ Time Advance Directives No March 02 5 7:03am Living Will No March 02, 2015 7 :03am Power of Demand Generation Manager No May 01 3:06pm Name Dates Details Immunization Registry [place] - Effective on 12/07/2020. Expiration date unspecified Effective:07-Dec-2020 Name Dates Details Immunization Registry [place] - Effective on 12/07/2020. Expiration date unspecified Effective:07-Dec-2020 Name Dates Details Immunization Registry [place] - Effective on 12/07/2020. Expiration date unspecified Effective:07-Dec-2020 Name Dates Details Immunization Registry [place] - Effective on 12/07/2020. Expiration date unspecified Effective:07-Dec-2020 Advance Directive Response Recorded Date/ Time Advance Directives No March 02 5 6:03am Living Will No March 02, 2015 6 :03am Power of Demand Generation Manager No May 01 2:06pm Name Dates Details Immunization Registry [place] - Effective on 12/07/2020. Expiration date unspecified Effective:07-Dec-2020 Name Dates Details Immunization Registry [place] - Effective on 12/07/2020. Expiration date unspecified Effective:07-Dec-2020 Name Dates Details Immunization Registry [place] - Effective on 12/07/2020. Expiration date unspecified Effective:07-Dec-2020 Name Dates Details Immunization Registry [place] - Effective on 12/07/2020. Expiration date unspecified Effective:07-Dec-2020 Name Dates Details Immunization Registry [place] - Effective on 12/07/2020. Expiration date unspecified Effective:07-Dec-2020 Name Dates Details Immunization Registry [place] - Effective on 12/07/2020. Expiration date unspecified Effective:07-Dec-2020 Chief Complaint and Reason for Visit Chief Complaint XRAY lumber spine LUMBAR PAIN Lumbar spine Reason for Visit HNP (herniated nucle us pulposus), lumbar Pars defect of lumbar spine Degenerative spondylolisthesis Chief Complaint XRAY lumber spine LUMBAR PAIN Lumbar spine SCREENING Reason for Visit HNP (herniated nucle us pulposus), lumbar Pars defect of lumbar spine Degenerative spondylolisthesis Chief Complaint XRAY lumber spine LUMBAR PAIN Lumbar spine SCREENING PREVENTATIVE - EVITA PELVIC PAIN Reason for Visit HNP (herniated nucle us pulposus), lumbar Pars defect of lumbar spine Degenerative spondylolisthesis Chief Complaint LUMBAR SPINE BACK PAIN /RX HERE Reason for Visit 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 Degenerative spondylolisthesis Chief Complaint BACK PAIN /RX HERE X R Z87.891 Chief Complaint BACK PAIN /RX HERE X R Z87.891 SCREENING OSTEO Chief Complaint RT CERVICAL RADIC/PT HAS RX Summary Purpose Additional Source Comments Goals (unrecognized section and content) Goals may be documented in a n alternate sectionGoals may be documented in an alternate sectionGoals may be documented in an alternate sectionGoals may be documented in an alternate sectionGoals may be documented in an alternate sectionGoals may be documented in an alternate sectionGoals may be documented in an alternate section INFORMATION SOURCE (unrecogn ized section and content) DATE CREATED AUTHOR 01/11/2023 [facility] DATE CREATED AUTHOR AUTHOR'S ORGANIZ ATION 07/06/2024 [facility] DATE CREATED AUTHOR AUTHOR'S ORGANIZ ATION 10/27/2024 [facility] DATE CREATED AUTHOR AUTHOR'S ORGANIZ ATION 08/05/2025 [facility] Care Teams (unrecognized sec tion and content) Team Status: Active Member Role Status Dates Dr. Iman Nazario , DO Family Provider Active Dr. Iman Nazario , DO Primary Care Provider Active Team Status: Inactive Member Role Status Dates Dr. Iman Nazario DO Primary Care Provider, Referr ing Provider Active Dr. Shiv Zaragoza , Attending Provider Active Team Status: Inactive Member Role Status Dates Dr. Iman Nazario , DO Primary Care Provider Active Dr. Melo Huntley MD Attending Provider, Referring Pr ovider Active Team Status: Inactive Member Role Status Dates Dr. Iman Nazario DO Primary Care Provider Active Dr. Matthew Johnston MD Attending Provider Active Team Status: Inactive Member Role Status Dates Dr. Iman Nazario , DO Primary Care Provider, Attend ing Provider Active Team Status: Inactive Member Role Status Dates Dr. Iman Nazario , DO Primary Care Pr ovider, Attending Provider, Referring Provider Active Team Status: Inactive Member Role Status Dates Dr. Iman Nazario DO Primary Care Provider Active LULU LOCK Attending Provider, Referring Provid er Active Show Host Or Hostess Relationship Specialty Start Date End Date Maddy Hernandez MD PCP - General Internal Medicine 07/08/13 Source Comments (unrecognize d section and content) In the event this informatio n is protected by the Federal Confidentiality of Alcohol and Drug Abuse Patient Records regulations: The Federal rules restrict any use of the information to criminally investigate or prosecute any alcohol or drug abuse patient.[facility] FOR RECORDS PERTAINING TO PATIENTS WHO ARE OR HAVE BEEN ENROLLED IN A CHEMICAL DEPENDENCY/SUBSTANCEABUSE PROGRAM, SOME INFORMATION MAY BE OMITTED. This clinical summary was aggregated from multiple sources. Caution should be exercised in using it in the provision of clinical care. This summary normalizes information from multiple sources, and as a consequence, information in this document may materially change the coding, format and clinical context of patient data. In addition, data may be omitted in some cases. CLINICAL DECISIONS SHOULD BE BASED ON THE PRIMARY CLINICAL RECORDS. [facility]. provides no warranty or guarantee of the accuracy or completeness of information in this document.
--- NOTE | 2025-09-22 07:29 | BD_ITS ---
PROCEDURE: DEXA BONE DENSITY STUDY 09/22/2025 REASON FOR EXAM: F, age 70 y/o . Postmenopausal screening. TECHNIQUE: Procedure Code: BDDBD Modality: DX Procedure: DEXA BONE DENSITY STUDY COMPARISON: Multiple previous studies dating back to 2012, the most recent from 2022 FINDINGS: BMD and T-SCORES Lumbar spine: 0.810 g/cm2, T-score -2.6 Levels: L3 through L4 Change from prior: Increase of 9.3%. Left femoral neck: 0.664 g/cm2, T-score -1.7 Femoral neck comparison data not recommended for monitoring change. Prior T-score Left total hip: 0.807 g/cm2, T-score -1.1 Change from prior: Increase of 2.5%. Right femoral neck: 0.654 g/cm2, T-score -1.8 Femoral neck comparison data not recommended for monitoring change. Prior T-score Right total hip: 0.760 g/cm2, T-score -1.5 Change from prior: Increase of 1%. The World Health Organization has defined the following categories based on bone density: Normal bone density: T-score equal to or greater than -1.0 Osteopenia: T-score between -1.0 and -2.5 Osteoporosis: T-score equal to or less than -2.5 FRAX (or Comparable) Fracture Risk Assessment: 10 Year Probability of Fracture: Major Osteoporotic Fracture: 16% Hip Fracture: 3.8% (Note: FRAX is not to be reported in setting of normal range bone density, osteoporosis on DEXA, known history of osteoporosis, prior osteoporotic hip or vertebral fracture, or for any patient undergoing pharmacological treatment for bone loss.) The National Osteoporosis Foundation (NOF) recommends pharmacological treatment for patients with a FRAX 10-year risk of 3% or higher for a hip fracture, or 20% or higher for a major osteoporotic fracture, to prevent osteoporosis and reduce fracture risk. The patient does meet the pharmacological treatment recommendations for prevention of osteoporosis. BD/Dexa Bone Density Study IMPRESSION: OSTEOPOROSIS. Recommend follow-up as clinically warranted. Reading Location: [id number]
--- NOTE | 2025-09-22 07:39 | BI_ITS ---
EXAM: SCRN MAMM (CAD)W/PUSHPA BILAT DATE: 09/22/2025 CLINICAL HISTORY: F, Age 70 y/o , SCREENING Routine screening TECHNIQUE: Procedure Code: [id number] Modality: MG Procedure: SCRN MAMM (CAD)W/PUSHPA BILAT COMPARISON: Prior exam(s) dated 09/10/2024 FINDINGS: TISSUE DENSITY: There are scattered areas of fibroglandular density. Bilateral Breast Mammographic Findings: No significant masses, calcifications or other abnormalities are identified. Stable scattered benign punctate calcifications. Stable post biopsy clips noted in both breasts. No interval change BI/SCRN MAMM (CAD)W/PUSHPA BILAT IMPRESSION: Stable screening mammogram, no suspicious findings OVERALL FINAL ASSESSMENT BI-RADS 2: BENIGN RECOMMENDATION: Routine annual follow-up in 1 Year Additional Recommendation none A letter with findings and recommendations will be mailed to the patient. Reading Location: [id number]
== END | disposition home or self-care (01) ==
LOC: OPBD 07:23
PROVIDERS: PCP Internal Medicine; Referring Provider Internal Medicine; Visit Provider Internal Medicine
DX: Z12.31 Encounter for screening mammogram for malignant neoplasm of breast (principal); Z78.0 Asymptomatic menopausal state
CPT/HCPCS: 77063; 77067; 77080